=== PATIENT | male | born 1940 | race Caucasian/White ===

== ENCOUNTER 2018-01-23 07:59 | Inpatient (IN) | payer MEDICARE, BC ==
[2018-01-23] MEDS ORDERED: RX INFO: IV CONTRAST WAS GIVEN 1 EACH MISC MISCELLANE PRN (08:42)
[2018-01-23] MEDS ORDERED: MORPHINE SULFATE/PF 10MG/10ML VL IVP STA (08:42)
[2018-01-23] MEDS ORDERED: SODIUM CHLORIDE 0.9% 1,000 ML IV STA (08:42)
--- NOTE | 2018-01-23 08:45 | ED ---
General Adult HPI - General Source: patient, RN notes reviewed Mode of arrival: ambulatory Limitations: no limitations <Kwasi Meyer - Last Filed: 01/23/18 11:40> <Omari Almonte - Last Filed: 01/23/18 11:49> - General Chief complaint: Abdominal Pain Stated complaint: ABD PAIN Time Seen by Provider: 01/23/18 08:30 - History of Present Illness Initial comments: 77-year-old male significant past medical history for leukemia, presenting today with a chief complaint of abdominal pain that started 3:30 AM. He does admit that he woke up this morning with a sharp type pain located in the left lower quadrant that radiates around to the right to the right side of the back. Patient states never had similar symptoms in the past. He does admit that he had 4 bowel movements which were normal for him and he denies any signs of blood. He denies any nausea or vomiting. Currently rates pain 8/10. Denies any other complaints or symptoms. Patient denies any recent fever, chills, shortness of breath, chest pain, numbness or tingling, dysuria or hematuria, constipation or diarrhea, headaches or visual changes, or any other complaints. (Kwasi Meyer) - Related Data Home Medications Medication Instructions Recorded Confirmed Propafenone [Rythmol] 225 mg PO BID 12/04/15 01/23/18 Simvastatin [Zocor] 40 mg PO HS 01/23/18 01/23/18 amLODIPine [Norvasc] 2.5 mg PO DAILY 01/23/18 01/23/18 Previous Rx's Medication Instructions Recorded Metoprolol Tartrate [Lopressor] 50 mg PO BID tab 07/24/16 Allergies Allergy/AdvReac Type Severity Reaction Status Date / Time No Known Allergies Allergy Verified 01/23/18 08:42 Review of Systems ROS Other: All systems not noted in ROS Statement are negative. <Kwasi Meyer - Last Filed: 01/23/18 11:40> ROS Other: All systems not noted in ROS Statement are negative. <Omari Almonte - Last Filed: 01/23/18 11:49> ROS Statement: Those systems with pertinent positive or pertinent negative responses have been documented in the HPI. Past Medical History Past Medical History: Atrial Fibrillation, Cancer, Hyperlipidemia, Myocardial Infarction ([place]) Additional Past Medical History / Comment(s): arrhythmia, chronic lymphocytic leukemia, inguinal hernia, hx skin cancer, Last Myocardial Infarction Date:: 1997 History of Any Multi-Drug Resistant Organisms: None Reported Past Surgical History: Hernia Repair, Orthopedic Surgery, Tonsillectomy Additional Past Surgical History / Comment(s): bilateral rotator cuffs, Past Anesthesia/Blood Transfusion Reactions: No Reported Reaction Additional Past Anesthesia/Blood Transfusion Reaction / Comment(s): clausterphobia Past Psychological History: No Psychological Hx Reported Smoking Status: Former smoker Past Alcohol Use History: None Reported Past Drug Use History: None Reported - Past Family History Mother Family Medical History: No Reported History Father Family Medical History: Congestive Heart Failure (CHF) Additional Family Medical History / Comment(s): PAD <Kwasi Meyer - Last Filed: 01/23/18 11:40> General Exam Limitations: no limitations <Kwasi Meyer - Last Filed: 01/23/18 11:40> <Omari Almonte - Last Filed: 01/23/18 11:49> - General Exam Comments Initial Comments: General: The patient is awake and alert, in no distress, and does not appear acutely ill. Eye: Pupils are equal, round and reactive to light, extra-ocular movements are intact. No nystagmus. There is normal conjunctiva bilaterally. No signs of icterus. Ears, nose, mouth and throat: There are moist mucous membranes and no oral lesions. Neck: The neck is supple, there is no tenderness or JVD. Cardiovascular: There is a regular rate and rhythm. No murmur, rub or gallop is appreciated. Respiratory: Lungs are clear to auscultation, respirations are non-labored, breath sounds are equal. No wheezes, stridor, rales, or rhonchi. Gastrointestinal: Abdomen soft on palpation. Mild tenderness in the lower quadrants. No rebound tenderness. No guarding. No CVA tenderness. Musculoskeletal: Normal ROM, no tenderness. Strength 5/5. Sensation intact. Pulses equal bilaterally 2+. Neurological: A&O x 3. CN II-XII intact, There are no obvious motor or sensory deficits. Coordination appears grossly intact. Speech is normal. Skin: Skin is warm and dry and no rashes or lesions are noted. Psychiatric: Cooperative, appropriate mood & affect, normal judgment. (Kwasi Meyer) Course <Kwasi Meyer - Last Filed: 01/23/18 11:40> <Omari Almonte - Last Filed: 01/23/18 11:49> Vital Signs 01/23/18 01/23/18 08:15 11:31 Temperature 97.9 F 97.0 F L Pulse Rate 74 Respiratory 18 Rate Blood Pressure 129/69 143/82 O2 Sat by Pulse 94 L Oximetry - Reevaluation(s) Reevaluation #1: 01/23/18 11:35 I did personally do a [id number] evaluation the patient did discuss findings with him and his also with Dr. Heart. The patient will be admitted with consultation by Dr. Hernandez 01/23/18 11:49 Patient does still have abdominal pain but minimal symptoms on palpation or percussion. (Omari Almonte) Medical Decision Making - Lab Data Result diagrams: 01/23/18 08:47 01/23/18 08:47 <Kwasi Meyer - Last Filed: 01/23/18 11:40> - Lab Data Result diagrams: 01/23/18 08:47 01/23/18 08:47 <Omari Almonte - Last Filed: 01/23/18 11:49> - Medical Decision Making Patient's labs been reviewed 18,[address] does show evidence for lymphoma. Results were discussed with attending physician Dr. Gage sutton patient at bedside discussing the case with Dr. Heart will accept admission for Dr. Reaves with consult to Dr. browning. Patient was started on antibiotics cover for infection here in emergency room. (Kwasi Meyer) - Lab Data Lab Results 01/23/18 01/23/18 01/23/18 Range/Units 08:47 08:47 08:47 WBC 18.1 H (3.8-10.6) k/uL RBC 4.51 (4.30-5.90) m/uL Hgb 13.4 (13.0-17.5) gm/dL Hct 38.0 L (39.0-53.0) % MCV 84.2 (80.0-100.0) fL MCH 29.8 (25.0-35.0) pg MCHC 35.4 (31.0-37.0) g/dL RDW 13.1 (11.5-15.5) % Plt Count 202 (150-450) k/uL Neutrophils % (Manual) 50 % Lymphocytes % (Manual) 46 % Monocytes % (Manual) 4 % Neutrophils # (Manual) 9.05 H (1.3-7.7) k/uL Lymphocytes # (Manual) 8.33 H (1.0-4.8) k/uL Monocytes # (Manual) 0.72 (0-1.0) k/uL Nucleated RBCs 0 (0-0) /100 WBC Manual Slide Review Performed RBC Morphology Normal Sodium 138 (137-145) mmol/L Potassium 4.5 (3.5-5.1) mmol/L Chloride 102 (98-107) mmol/L Carbon Dioxide 24 (22-30) mmol/L Anion Gap 12 mmol/L BUN 16 (9-20) mg/dL Creatinine 1.12 (0.66-1.25) mg/dL Est GFR (CKD-EPI)AfAm 72 (>60 ml/min/1.73 sqM) Est GFR (CKD-EPI)NonAf 62 (>60 ml/min/1.73 sqM) Glucose 123 H (74-99) mg/dL Calcium 9.3 (8.4-10.2) mg/dL Total Bilirubin 1.1 (0.2-1.3) mg/dL AST 20 (17-59) U/L ALT 21 (21-72) U/L Alkaline Phosphatase 79 (38-126) U/L Total Protein 6.3 (6.3-8.2) g/dL Albumin 4.2 (3.5-5.0) g/dL Amylase 45 (30-110) U/L Lipase 66 (23-300) U/L Urine Color Yellow Urine Appearance Clear (Clear) Urine pH 6.5 (5.0-8.0) Ur Specific [place] 1.018 (1.001-1.035) Urine Protein Trace H (Negative) Urine Glucose (UA) Negative (Negative) Urine Ketones Trace H (Negative) Urine Blood Negative (Negative) Urine Nitrite Negative (Negative) Urine Bilirubin Negative (Negative) Urine Urobilinogen <2.0 (<2.0) mg/dL Ur Leukocyte Esterase Negative (Negative) Disposition Time of Disposition: 11:11 <Kwasi Meyer - Last Filed: 01/23/18 11:40> <Omari Almonte - Last Filed: 01/23/18 11:49> Clinical Impression: Lymphoma, Colitis, CLL (chronic lymphocytic leukemia) Referrals: Escobar Reaves MD [Primary Care Provider] - 1-2 days
[2018-01-23] MEDS ORDERED: MORPHINE SULFATE 4 MG/ML SYRINGE IVP STA (08:55)
[2018-01-23 09:07] LABS: HGB 13.4 gm/dL (13.0-17.5); MCH 29.8 pg (25.0-35.0); MCHC 35.4 g/dL (31.0-37.0); MCV 84.2 fL (80.0-100.0); Mean Platelet Volume 6.9; Platelet Count 202 k/uL (150-450); RBC 4.51 m/uL (4.30-5.90); RDW 13.1 % (11.5-15.5); WBC 18.1 k/uL (3.8-10.6)
[2018-01-23 09:08] LABS: Appearance,Urine Clear (Clear); Bilirubin,Urine Negative (Negative); Blood,Urine Negative (Negative); Color,Urine Yellow; Glucose,Urine (UA) Negative (Negative); Ketones,Urine Trace (Negative); Leukocyte Esterase,Urine Negative (Negative); Nitrite,Urine Negative (Negative); PH, Urine 6.5 (5.0-8.0); Protein,Urine Trace (Negative); Specific Gravity,Urine 1.018 (1.001-1.035); Urobilinogen,Urine <2.0 mg/dL (<2.0)
[2018-01-23] MEDS ORDERED: ONDANSETRON 4 MG/2 ML VIAL IVP STA ×2 (09:08→11:23)
[2018-01-23 09:20] LABS: Albumin 4.2 g/dL (3.5-5.0); Calcium 9.3 mg/dL (8.4-10.2); Potassium 4.5 mmol/L (3.5-5.1); Total Bilirubin 1.1 mg/dL (0.2-1.3); Total Protein 6.3 g/dL (6.3-8.2)
[2018-01-23 09:22] LABS: Lymphocytes # (M) 8.33 k/uL (1.0-4.8); Monocytes # (M) 0.72 k/uL (0-1.0); Neutrophils # (M) 9.05 k/uL (1.3-7.7); Neutrophils % (M) 50 %; Nucleated Red Blood Cells 0 /100 WBC (0-0); Total Cells Counted 100
[2018-01-23] MEDS ORDERED: MORPHINE SULFATE 4 MG/ML SYRINGE IV STA (10:02)
--- NOTE | 2018-01-23 10:11 | CT ---
EXAMINATION TYPE: CT abdomen pelvis w con DATE OF EXAM: 01/23/2018 REFERENCE: NONE HISTORY: abdominal pain HISTORY: Left lower quadrant pain REFERENCE: NONE CT DLP: 1309.0 mGy Automated exposure control for dose reduction was used. TECHNIQUE: Helical acquisition through the abdomen and pelvis was obtained following the oral ingesti on of without Oral Contrast and following intravenous administration of 100 mL of Omnipaque 300. The data was reformatted in axial, coronal and sagittal projections. FINDINGS: There is dependent atelectasis at the lung bases. There is no pleural or pericardial fluid. The heart is not enlarged. There is extensive coronary artery calcification. There is a partial eventration of the right hemidiaphragm. The liver, spleen and gallbladder appear n ormal. Both adrenal glands appear normal. There is massive adenopathy within the abdomen including the celiac axis the pericaval and Aortic region as well as the mesentery there is also some iliac adenopathy present bilaterally. No de finite inguinal adenopathy is seen. Largest lymph node mass is in the para-aortic region and measures 1.5 x 1.5 cm. Limited views of the pancreas are unremarkable. Both kidneys demonstrate function and appear morphologically normal. There is no evidence of hydronep hrosis. There is extensive diverticular change in the sigmoid region without radiographic evidence of diverti culitis. There are scattered diverticula throughout the remainder of the colon. There is some thicken ing of the transverse colon. The appendix is not visualized with certainty. Small bowel loops are normal. The bladder is not distended. There is no free fluid and no free air. There is degenerative disc disease and hypertrophic spondylosis within the spine. IMPRESSION: 1. FINDINGS HIGHLY SUGGESTIVE OF LYMPHOMA. 2. UNCOMPLICATED DIVERTICULOSIS OF THE LEFT SIDE OF THE COLON. 3. THICKENING OF THE TRANSVERSE COLON. PLEASE CORRELATE TO EXCLUDE COLITIS.
[2018-01-23] MEDS ORDERED: LEVOFLOXACIN 500MG-D5W PMX 500 MG in DEXTROSE/WATER 1 100ML.BAG IVPB STA (11:41)
[2018-01-23] MEDS ORDERED: metroNIDAZOLE-NS PMX 500 MG in SALINE 1 100ML.BAG IVPB STA (11:41)
[2018-01-23] MEDS ORDERED: MORPHINE SULFATE 4 MG/ML SYRINGE IV PRN ×2 (11:42→16:22)
[2018-01-23] MEDS ORDERED: ACETAMINOPHEN TAB 325 MG TAB PO PRN (11:42)
[2018-01-23] MEDS ORDERED: NALOXONE 0.4 MG/ML 1 ML VIAL IV PRN (11:42)
[2018-01-23] MEDS ORDERED: ONDANSETRON 4 MG/2 ML VIAL IVP PRN (11:42)
[2018-01-23] MEDS: HYDROcodone/APAP 5-325MG 1 EACH TAB PO PRN ×3 (12:25→21:12)
--- NOTE | 2018-01-23 13:34 | P.HPIM ---
History of Present Illness H&P Date: 01/23/18 Chief Complaint: Acute abdominal pain started on the left around the abdomen This is dictation on history and physical date of service 01/23/2018. Attending physician Dr.Anil Reaves. Dictating the admission history and physical by Dr. Sly [facility]. Chief complaint acute onset of abdominal pain week the patient up at 3:30 AM. Started on the left side of the abdomen several cold around 2 or three quarter of the abdomen. Rate of pain 06/17. Cataract and is sharp associated with mild nausea but he never vomits he received pale in the ER for the nausea. He had 4 BM in a row and associated with these pain, patient came to the emergency room seen by Dr. Almonte with the impression of mild diverticulitis and started on Levaquin and Flagyl IV piggyback. Patient had computed tomography scan of the abdomen in the emergency room found that he had enlarged lymph nodes bilaterally paraortic and iliac and we don't have the comparison. With the upper current recurrent exacerbation, or acute changes, his leukocytosis is 18,000. Past medical history history of chronic lymphocytic leukemia last treatment received 2 years ago by hematology oncology, actually he was seen recently by Dr. Hernandez last week. He had history of hypertension and history of arrhythmias that has been treated by Dr. 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 Family history he has 2 sons He lives with his . Habits: No smoke and no drink. Smoking history 15 years pack per day and mostly Segar. Bowel movement: Stated 4 of them suddenly but within normal shape and color and wasn't loose. Lost night intake hamburger at 5 PM supper time with differential Ame[employer] and couple of cookies for dessert. Food was made at home. Review of system: Constitution no fever or chills or falling attacks or numbness or tingling or dysuria or hematuria or constipation diarrhea headache or visual changes or any other symptoms. Neuropsychiatry negative. Cardiovascular no palpitation no chest pain. Respiratory no shortness of breath and no cough or expectoration. GI he had some nausea and epigastric discomfort and he had a 4 bowel movement. And had the pain waking him up at 3:30 AM started from the left lower quadrant circled around the abdomen to the back to come back three quarter of the cervical. Was sharp, and never have the pain leg that before. Musculoskeletal: He is ambulatory, did not feel falling down or weakness in association of the pain line. Hematologically he was treated for the chronic lymphocytic leukemia [address] Hernandez and he was stable with no problem and seen recently by Dr. Hernandez. The rest of the 14 bullet noncontributory. Surgical history hernia repair orthopedic surgery tonsillectomy cataract bilaterally removed bilateral rotator cuff disease atrial fibrillation myocardial infarction and arrhythmias hyper lipidemia. And no CVA. Admitted to the family history: His father had congestive heart failure and peripheral arterial disease. Physical exam: [id number]. Patient conscious alert oriented 3 very pleasant no acute respiratory distress. Vital sign indicating blood pressure 129/69 followed by 143/82 pulse ox 94% his pulse rate 74 temperature 97.9 297 and afebrile and respiratory rate 18. Generally patient awake alert no acute respiratory distress no distress from the pain. HEENT the head was normocephalic and atraumatic he had a history of keratosis was treated with the Dr. Malik re: dermatology. His eye pupil equal reactive he had cataract removal with implant extraocular muscle movement is intact conjunctiva was pink sclera was nonicteric and no evidence of icterus here was intact and neck was supple no JVD no thyromegaly no lymphadenopathy trachea midline. The axilla has right and left lymph node palpated however the inguinal has no lymph nodes could be palpated in the inguinal area. Chest was clear to auscultation percussion no wheezes no rhonchi's no stridor nonlabored. With increased anteroposterior diameter and remote history of smoking in the past. Cardiovascular 1 he has regular sinus rhythm and no appreciated murmur or gallop. Musculoskeletal he had no tenderness and able to move upper and lower extremities and range of motion is normal and intact sensation and reflexes. Neurologically he is conscious alert oriented 3 no lateralizing sign and creatinine there was stable the skin warm and dry with no apparent lesion in the psychiatry he is cooperative with normal mood and affect affect and normal judgment. On the laboratories he is today on the date of service 01/23/2019 he had the leukocytosis was white count 13.1 his hemoglobin 13.4 and the hematocrit is 38 platelet count 202. His electrolyte indicating the sodium 138 potassium 4.5 and the Coumadin chloride 102 carbon dioxide 24 that BUN is 16 and creatinine 1.12. Calcium is 9.3 his estimated glomerular filtration rate for non- 62 and AST 20 LT 21 alk phos 79 total protein 6.3 and albumin 4.20 serum amylase is 45 and serum lipase 66. His urine analysis was negative with the pH 6.5 clear urine and negative blood negative nitrite And negative leukocyte . Assessment: Acute abdominal pain unclear etiology. #2 chronic lymphocytic leukemia questionable acute exacerbation or transformation. #3 lymphadenopathy with the exemplary lymph node bilateral has been palpated, computed tomography scan indicated also lymph node intra-abdominal and paraortic. #4 underlying mild case of diverticulitis considered versus colitis patient treated with Levaquin and Flagyl. #5 history of cardiac arrhythmia currently regular sinus #6 history of hypertension currently controlled and the patient normotensive. Plan: #1 Dr. Reaves will follow the patient tomorrow the attending. #2 Dr. Hernandez has been consulted to to see the patient and evaluate. #3 lab and a.m. #4 monitor the patient's symptoms. #5 farther treatment depend on the patient condition. Past Medical History Past Medical History: Atrial Fibrillation, Cancer, Hyperlipidemia, Myocardial Infarction ([place]) Additional Past Medical History / Comment(s): arrhythmia, chronic lymphocytic leukemia, inguinal hernia, hx skin cancer, Last Myocardial Infarction Date:: 1997 History of Any Multi-Drug Resistant Organisms: None Reported Past Surgical History: Hernia Repair, Orthopedic Surgery, Tonsillectomy Additional Past Surgical History / Comment(s): bilateral rotator cuffs, Past Anesthesia/Blood Transfusion Reactions: No Reported Reaction Additional Past Anesthesia/Blood Transfusion Reaction / Comment(s): clausterphobia Past Psychological History: No Psychological Hx Reported Smoking Status: Former smoker Past Alcohol Use History: None Reported Past Drug Use History: None Reported - Past Family History Mother Family Medical History: No Reported History Father Family Medical History: Congestive Heart Failure (CHF) Additional Family Medical History / Comment(s): PAD Medications and Allergies Home Medications Medication Instructions Recorded Confirmed Type Propafenone [Rythmol] 225 mg PO BID 12/04/15 01/23/18 History Metoprolol Tartrate [Lopressor] 50 mg PO BID tab 07/24/16 01/23/18 Rx Simvastatin [Zocor] 40 mg PO HS 01/23/18 01/23/18 History amLODIPine [Norvasc] 2.5 mg PO DAILY 01/23/18 01/23/18 History Allergies Allergy/AdvReac Type Severity Reaction Status Date / Time No Known Allergies Allergy Verified 01/23/18 08:42 Physical Exam Vitals: Vital Signs Temp Pulse Resp BP Pulse Ox 01/23/18 12:20 97.0 F L 92 17 127/68 98 01/23/18 11:31 97.0 F L 143/82 01/23/18 08:15 97.9 F 74 18 129/69 94 L Intake and Output 01/22/18 01/23/18 01/23/18 22:59 06:59 14:59 Other: Weight 86.183 kg Results CBC & Chem 7: 01/23/18 08:47 01/23/18 08:47 Labs: Abnormal Lab Results - Last 24 Hours (Table) 01/23/18 01/23/18 01/23/18 Range/Units 08:47 08:47 08:47 WBC 18.1 H (3.8-10.6) k/uL Hct 38.0 L (39.0-53.0) % Neutrophils # (Manual) 9.05 H (1.3-7.7) k/uL Lymphocytes # (Manual) 8.33 H (1.0-4.8) k/uL Glucose 123 H (74-99) mg/dL Urine Protein Trace H (Negative) Urine Ketones Trace H (Negative)
[2018-01-23 13:40] VITALS: BMI 28.0
[2018-01-23 15:02] LABS: Uric Acid 6.3 mg/dL (3.5-8.5)
[2018-01-23] MEDS: SODIUM CHLORIDE 0.9% 1,000 ML IV SCH (15:54)
[2018-01-23] MEDS: MORPHINE SULFATE/PF 10MG/10ML VL IV PRN ×2 (18:14→21:06)
[2018-01-23] MEDS: metroNIDAZOLE-NS PMX 500 MG in SALINE 1 100ML.BAG IVPB SCH (21:06)
[2018-01-23] MEDS: METOPROLOL TARTRATE 50 MG TAB PO SCH (21:12)
[2018-01-23] MEDS: ATORVASTATIN 20 MG TAB PO SCH (21:12)
[2018-01-23] MEDS: ONDANSETRON 4 MG/2 ML VIAL IVP PRN (23:12)
[2018-01-24] MEDS: MORPHINE SULFATE/PF 10MG/10ML VL IVP PRN ×3 (01:07→10:13)
[2018-01-24] MEDS: METOCLOPRAMIDE 5 MG/ML 2 ML VIAL IVP PRN ×2 (01:07→17:46)
[2018-01-24] MEDS: metroNIDAZOLE-NS PMX 500 MG in SALINE 1 100ML.BAG IVPB SCH (06:24)
[2018-01-24] MEDS: SODIUM CHLORIDE 0.9% 1,000 ML IV SCH ×2 (06:26→20:07)
[2018-01-24 07:47] LABS: Albumin 4.1 g/dL (3.5-5.0); Calcium 9.2 mg/dL (8.4-10.2); Potassium 4.5 mmol/L (3.5-5.1); Total Bilirubin 0.9 mg/dL (0.2-1.3); Total Protein 6.2 g/dL (6.3-8.2)
[2018-01-24 07:54] LABS: HCT 35.9 % (39.0-53.0); HGB 12.3 gm/dL (13.0-17.5); MCH 29.3 pg (25.0-35.0); MCHC 34.2 g/dL (31.0-37.0); MCV 85.6 fL (80.0-100.0); Mean Platelet Volume 7.1; Platelet Count 224 k/uL (150-450); RDW 13.2 % (11.5-15.5)
[2018-01-24 08:14] LABS: WBC 31.8 k/uL (3.8-10.6)
[2018-01-24] MEDS: METOPROLOL TARTRATE 50 MG TAB PO SCH ×3 (08:40→20:06)
[2018-01-24] MEDS: amLODIPine 2.5 MG TAB PO SCH ×2 (08:41→10:13)
[2018-01-24] MEDS: ONDANSETRON 4 MG/2 ML VIAL IVP PRN ×2 (08:43→16:39)
[2018-01-24 08:52] LABS: Lymphocytes # (M) 22.58 k/uL (1.0-4.8); Monocytes # (M) 2.23 k/uL (0-1.0); Neutrophils % (M) 22 %; Nucleated Red Blood Cells 0 /100 WBC (0-0); Poikilocytosis (M) Present; Total Cells Counted 100
[2018-01-24] MEDS ORDERED: LEVOFLOXACIN 500MG-D5W PMX 500 MG in DEXTROSE/WATER 1 100ML.BAG IVPB SCH (12:00)
[2018-01-24] MEDS: KETOROLAC 30 MG/ML 1 ML VIAL IVP SCH ×2 (12:59→18:08)
[2018-01-24] MEDS ORDERED: MORPHINE ORAL SOLN 10 MG/5 ML CUP PO PRN (13:32)
[2018-01-24] MEDS: MORPHINE ORAL SOLN 10 MG/5 ML CUP PO PRN ×2 (16:37→19:24)
--- NOTE | 2018-01-24 17:10 | P.GSCN ---
History of Present Illness Consult date: 01/24/18 History of present illness: 77-year-old male presented to the emergency department with abdominal pain. He has a known history of CLL and has been treated with chemotherapy in the past. The patient states that he was treated through peripheral venous chemotherapy. He states that his abdominal pain is pressure-like and throughout his entire abdomen. He states that morphine mildly improved since pain. On workup in the emergency department the patient did have a CT of his abdomen and pelvis that did show thickening of the transverse colon and lymphadenopathy in the aortic region. He states that he has been having normal bowel function with no issues. He complains of some mild nausea but denies any emesis episodes. His last treatment of chemotherapy was 2 years ago. He denies any fevers, chills, chest pain or shortness of breath at this time. Surgeries consult and secondary to increased abdominal pain. Review of Systems All systems: negative Past Medical History Past Medical History: Atrial Fibrillation, Cancer, Hyperlipidemia, Myocardial Infarction ([place]) Additional Past Medical History / Comment(s): arrhythmia, chronic lymphocytic leukemia, inguinal hernia, hx skin cancer, Last Myocardial Infarction Date:: 1997 History of Any Multi-Drug Resistant Organisms: None Reported Past Surgical History: Hernia Repair, Orthopedic Surgery, Tonsillectomy Additional Past Surgical History / Comment(s): bilateral rotator cuffs, Past Anesthesia/Blood Transfusion Reactions: No Reported Reaction Additional Past Anesthesia/Blood Transfusion Reaction / Comm: clausterphobia Past Psychological History: No Psychological Hx Reported Smoking Status: Former smoker Past Alcohol Use History: None Reported Past Drug Use History: None Reported - Past Family History Mother Family Medical History: No Reported History Father Family Medical History: Congestive Heart Failure (CHF) Additional Family Medical History / Comment(s): PAD Medications and Allergies Home Medications Medication Instructions Recorded Confirmed Type Propafenone [Rythmol] 225 mg PO BID 12/04/15 01/23/18 History Metoprolol Tartrate [Lopressor] 50 mg PO BID tab 07/24/16 01/23/18 Rx Simvastatin [Zocor] 40 mg PO HS 01/23/18 01/23/18 History amLODIPine [Norvasc] 2.5 mg PO DAILY 01/23/18 01/23/18 History Allergies Allergy/AdvReac Type Severity Reaction Status Date / Time No Known Allergies Allergy Verified 01/23/18 08:42 Surgical - Exam Osteopathic Statement: *. No significant issues noted on an osteopathic structural exam other than those noted in the History and Physical/Consult. Vital Signs Temp Pulse Resp BP Pulse Ox 97.9 F 74 18 129/69 94 L 01/23/18 08:15 01/23/18 08:15 01/23/18 08:15 01/23/18 08:15 01/23/18 08:15 - General no distress - Eyes PERRL, normal ocular movement - ENT no hearing loss - Neck trachea midline - Respiratory normal respiratory effort - Abdomen Soft, mildly generally tender to palpation, nondistended, no rebound, no guarding - Neurologic normal sensation - Psychiatric oriented to time, oriented to person, oriented to place, speech is normal Results - Labs 01/24/18 06:42 01/24/18 06:42 Abnormal Lab Results - Last 24 Hours (Table) 01/24/18 01/24/18 Range/Units 06:42 06:42 WBC 31.8 H* (3.8-10.6) k/uL RBC 4.20 L (4.30-5.90) m/uL Hgb 12.3 L (13.0-17.5) gm/dL Hct 35.9 L (39.0-53.0) % Lymphocytes # (Manual) 22.58 H (1.0-4.8) k/uL Monocytes # (Manual) 2.23 H (0-1.0) k/uL BUN 25 H (9-20) mg/dL Glucose 148 H (74-99) mg/dL ALT 18 L (21-72) U/L Total Protein 6.2 L (6.3-8.2) g/dL Microbiology - Last 24 Hours (Table) 01/23/18 09:00 Blood Culture - Preliminary Blood No Growth after 24 hours Diabetes panel 01/24/18 Range/Units 06:42 Sodium 139 (137-145) mmol/L Potassium 4.5 (3.5-5.1) mmol/L Chloride 99 (98-107) mmol/L Carbon Dioxide 26 (22-30) mmol/L BUN 25 H (9-20) mg/dL Creatinine 1.08 (0.66-1.25) mg/dL Glucose 148 H (74-99) mg/dL Calcium 9.2 (8.4-10.2) mg/dL AST 24 (17-59) U/L ALT 18 L (21-72) U/L Alkaline Phosphatase 68 (38-126) U/L Total Protein 6.2 L (6.3-8.2) g/dL Albumin 4.1 (3.5-5.0) g/dL Calcium panel 01/24/18 Range/Units 06:42 Calcium 9.2 (8.4-10.2) mg/dL Albumin 4.1 (3.5-5.0) g/dL Pituitary panel 01/24/18 Range/Units 06:42 Sodium 139 (137-145) mmol/L Potassium 4.5 (3.5-5.1) mmol/L Chloride 99 (98-107) mmol/L Carbon Dioxide 26 (22-30) mmol/L BUN 25 H (9-20) mg/dL Creatinine 1.08 (0.66-1.25) mg/dL Glucose 148 H (74-99) mg/dL Calcium 9.2 (8.4-10.2) mg/dL Adrenal panel 01/24/18 Range/Units 06:42 Sodium 139 (137-145) mmol/L Potassium 4.5 (3.5-5.1) mmol/L Chloride 99 (98-107) mmol/L Carbon Dioxide 26 (22-30) mmol/L BUN 25 H (9-20) mg/dL Creatinine 1.08 (0.66-1.25) mg/dL Glucose 148 H (74-99) mg/dL Calcium 9.2 (8.4-10.2) mg/dL Total Bilirubin 0.9 (0.2-1.3) mg/dL AST 24 (17-59) U/L ALT 18 L (21-72) U/L Alkaline Phosphatase 68 (38-126) U/L Total Protein 6.2 L (6.3-8.2) g/dL Albumin 4.1 (3.5-5.0) g/dL - Imaging CT scan - abdomen: report reviewed CT scan - pelvis: report reviewed Assessment and Plan (1) Chronic lymphocytic leukemia Narrative/Plan: 77-year-old male with abdominal pain and history of CLL - Abdominal pain most likely secondary to generalized adenopathy in the aortic region - Continue diet as tolerated, no plan for acute surgical intervention - No obstructive process noted on the CT of the abdomen and pelvis - Will await oncology recommendations - Further recommendations to follow, I will continue to follow the patient Thank you for this consultation, I look forward in providing in this patient's care. Current Visit: Yes Status: Acute Priority: High Code(s): C91.10 - CHRONIC LYMPHOCYTIC LEUK OF B-CELL TYPE NOT ACHIEVE REMIS SNOMED Code(s): 33793048
[2018-01-24] MEDS ORDERED: LORazepam 2 MG/ML INJ IV PRN (19:38)
[2018-01-24] MEDS: HYDROmorphone 2 MG TAB PO PRN (20:03)
[2018-01-24] MEDS: PROPAFENONE 225 MG TAB PO SCH (20:06)
[2018-01-24] MEDS: ATORVASTATIN 20 MG TAB PO SCH (20:06)
--- NOTE | 2018-01-24 23:41 | P.CONS ---
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 He was originally diagnosed with stage "0" disease in 2003 and followed on observation until 2008. He required 4 treatments of Bendamustine and Rituxan in for an incresing WBC count and lowering platelet count. He has required high dose steroid treatments through the years for episodes of thrombocytopenia (2010, 12/2011, 07/2012). In 2013, after episode of cough and sinusitis he developed a persistent leukopenia. A bone marrow biopsy was done, confirming the expected findings of CLL. Rituxan weekly x4 treatments was administered. In 2015, he presented with positive B symptoms and new axillary adenopathy. He received six treatements of Bendeka and Rituxan at his time (completing in 12/2016). He was recently seen in the office last week,and at that time denied any B symptoms or complaints. He presented to [facility] ED last night after experiencing sharp abdominal pain, with associated nausea and vomitting. Pain was sudden onset and woke him up from sleep. His WBC is trending up, although no fevers. He states he is moving bowels without difficulty. Review of Systems A 14 point review assessed and completed and all negative except HPI. Constitutional: Reports as per HPI, Reports fatigue Gastrointestinal: Reports abdominal pain Past Medical History Past Medical History: Atrial Fibrillation, Cancer, Hyperlipidemia, Myocardial Infarction ([place]) Additional Past Medical History / Comment(s): arrhythmia, chronic lymphocytic leukemia, inguinal hernia, hx skin cancer, Last Myocardial Infarction Date:: 1997 History of Any Multi-Drug Resistant Organisms: None Reported Past Surgical History: Hernia Repair, Orthopedic Surgery, Tonsillectomy Additional Past Surgical History / Comment(s): bilateral rotator cuffs, Past Anesthesia/Blood Transfusion Reactions: No Reported Reaction Additional Past Anesthesia/Blood Transfusion Reaction / Comm: clausterphobia Past Psychological History: No Psychological Hx Reported Smoking Status: Former smoker Past Alcohol Use History: None Reported Past Drug Use History: None Reported - Past Family History Mother Family Medical History: No Reported History Father Family Medical History: Congestive Heart Failure (CHF) Additional Family Medical History / Comment(s): PAD Medications and Allergies Home Medications Medication Instructions Recorded Confirmed Type RX: Propafenone [Rythmol] 225 mg PO BID 12/04/15 01/23/18 History RX: Metoprolol Tartrate [Lopressor] 50 mg PO BID tab 07/24/16 01/23/18 Rx Simvastatin [Zocor] 40 mg PO HS 01/23/18 01/23/18 History amLODIPine [Norvasc] 2.5 mg PO DAILY 01/23/18 01/23/18 History Allergies Allergy/AdvReac Type Severity Reaction Status Date / Time No Known Allergies Allergy Verified 01/23/18 08:42 Physical Exam Vitals: Vital Signs Temp Pulse Pulse Resp BP BP Pulse Ox 01/24/18 08:00 90 20 01/24/18 07:00 97.3 F L 90 20 106/70 92 L 01/24/18 00:00 16 01/23/18 23:00 98.1 F 95 16 127/79 94 L 01/23/18 15:44 17 01/23/18 15:00 97.8 F 83 16 124/78 93 L 01/23/18 12:20 97.0 F L 92 17 127/68 98 Intake and Output 01/23/18 01/24/18 01/24/18 22:59 06:59 14:59 Intake Total 590 1220 Output Total 400 Balance 190 1220 Intake: Intake, IV Titration 820 Amount Sodium Chloride 0.9% 1, 720 000 ml @ 60 mls/hr IV . [id number] [facility] Rx#:[id number] metroNIDAZOLE-NS PMX 500 100 mg In Saline 1 100ml.bag @ 100 mls/hr IVPB ONCE STA Rx#:[id number] Oral 590 400 Output: Emesis 400 Other: Voiding Method Toilet Toilet Toilet # Voids 2 3 - Constitutional General appearance: average body habitus, cooperative, no acute distress - EENT Eyes: poor dentition, normal appearance ENT: normal oropharynx - Neck Supple, Trachea Midline, No adenopathy - Respiratory Respiratory: bilateral: CTA (No increased effort), diminished (Bases) - Cardiovascular Rhythm: regular Heart sounds: normal: S1, S2 - Gastrointestinal General gastrointestinal: distended, soft, tenderness - Integumentary Integumentary: normal - Neurologic No focal defects Neurologic: CNII-XII intact - Psychiatric Psychiatric: A&O x's 3, appropriate affect, intact judgment & insight Results CBC & Chem 7: 01/24/18 06:42 01/24/18 06:42 Labs: Abnormal Lab Results - Last 24 Hours (Table) 01/24/18 01/24/18 Range/Units 06:42 06:42 WBC 31.8 H* (3.8-10.6) k/uL RBC 4.20 L (4.30-5.90) m/uL Hgb 12.3 L (13.0-17.5) gm/dL Hct 35.9 L (39.0-53.0) % Lymphocytes # (Manual) 22.58 H (1.0-4.8) k/uL Monocytes # (Manual) 2.23 H (0-1.0) k/uL BUN 25 H (9-20) mg/dL Glucose 148 H (74-99) mg/dL ALT 18 L (21-72) U/L Total Protein 6.2 L (6.3-8.2) g/dL CT scan - abdomen: report reviewed CT scan - pelvis: report reviewed Assessment and Plan (1) Chronic lymphocytic leukemia Narrative/Plan: 1. CT scan reviewed. Adenopathy present in abdomen within the celiac plexus and pericaval region. Evidence of possible colitis as well. Increasing WBC with adenopathy is indicative of progressive disease. However it is unclear if this acute presentation is due to progression. Usually in case of progressive disease more slower ,progressive pain, WBC count would be expected. - I will ask Radiology to review scan for any evidence of veno-vascular compromise/splenic pathology - agree with antibiotic and hydration. Follow response to same - Consider GI w/u to r/o acute pathology such as ulcer /colitis Current Visit: Yes Status: Acute Priority: High Code(s): C91.10 - CHRONIC LYMPHOCYTIC LEUK OF B-CELL TYPE NOT ACHIEVE REMIS SNOMED Code(s): 19819509
[2018-01-25] MEDS: KETOROLAC 30 MG/ML 1 ML VIAL IVP SCH ×4 (00:26→17:57)
--- NOTE | 2018-01-25 00:40 | PN ---
PROGRESS NOTE ATTENDING PHYSICIAN: Dr. Mane Reaves. CHIEF COMPLAINT: Abdominal pain. HISTORY OF PRESENT ILLNESS: This 77-year-old gentleman was admitted to the hospital with complaints of abdominal pain which started about 3 o'clock on Wednesday night. The patient's pain was quite intense across the mid abdomen. The patient had no nausea or vomiting at that time. He did have 4 bowel movements at home with no blood or mucus in there. The patient presents to the hospital with the above findings. The patient was afebrile. He did not complain of any other symptoms. He does have history of chronic lymphocytic leukemia. A CT scan of the abdomen revealed a fairly large mass of knotted lymph nodes in the mesenteric and celiac axis. The patient did not show any evidence of bowel obstruction. The patient was seen by Dr. Heart and admitted to the hospital. The patient was placed on Levaquin and Flagyl; however, the patient has no evidence of any infective process. The patient does have a history of previous treatment of leukemia/lymphoma. The patient is followed by Dr. Hernandez in the outpatient. He was recently evaluated by him. Apparently the white count was at 10,000 at that time. At the time of admission had a white count of 18.1, today is 31.8, predominantly lymphocytes. Platelet counts are still normal at 224,000. REVIEW OF SYSTEMS: NEURO: Denies any headaches or dizziness. PSYCH: Apprehension. CARDIAC: No chest pain, angina, palpitations. RESPIRATORY: No shortness of breath, cough. GI: No nausea. Did have an episode of vomiting following treatment with narcotics. Complains of abdominal pain. At present seems fairly comfortable at my time of evaluation in the morning. No diarrhea. : No symptoms of dysuria, hematuria, urgency, frequency. EXTREMITIES: No pain. CONSTITUTIONAL: No fever or chills. PHYSICAL EXAMINATION: Pleasant gentleman. He is in no distress, although he does have some abdominal pain. Vital signs revealed temperature 97.3, pulse 90, respirations 20, blood pressure 106/70, pulse ox of 92% room air. HEENT: Normocephalic. Neck is no JVD. Oral cavity moist. There are no supraclavicular lymph nodes. No axillary nodes. No cervical nodes. No inguinal nodes. CHEST: Clear to auscultation and percussion. CARDIAC: Normal S1, S2 with no gallops. Regular rhythm. ABDOMEN: Protuberant. There is a diffuse mass in the right upper quadrant of the abdomen. Liver is not enlarged. Bowel sounds are active. No inguinal hernia or nodes. Extremities reveal no edema. NEUROLOGIC: Awake, alert, oriented with well-coordinated movements. LABORATORY ASSESSMENT: As mentioned above. White count 31.8, hemoglobin 12.3, and the predominant lymphocytes are 22,580. Electrolytes are normal. BUN 25, creatinine 1.08, glucose was 148, ALT 18. ASSESSMENT: 1. Acute abdominal pains. 2. Massive lymphadenopathy, intraabdominal. 3. History of chronic lymphocytic leukemia/lymphoma. 4. Paroxysmal atrial fibrillation. 5. Paroxysmal atrial fibrillation. 6. Hypertension. PLAN: The patient at present is stable. Complains of pain. I did review the x-rays and the CT scan with the radiologist. He certainly has a fairly large lymph nodes. No evidence of bowel obstruction. Would defer further management of this leukemia/lymphoma by Dr. Hernandez. The patient's condition is discussed with the patient and his prognosis remains guarded. I did call the patient up after reviewing the CT scan with the radiologist and discussed with him the findings. The nurses called me today this evening and the patient's pain was not well controlled. I placed him on Toradol this morning due to shortage of IV narcotics. We will switch over to Dilaudid. The patient's condition remains guarded. Prognosis guarded. MMODL / IJN: [id number] /
[2018-01-25] MEDS: HYDROmorphone 2 MG TAB PO PRN ×3 (04:37→18:35)
[2018-01-25] MEDS: SODIUM CHLORIDE 0.9% 1,000 ML IV SCH ×3 (04:38→09:25)
[2018-01-25] MEDS: METOCLOPRAMIDE 5 MG/ML 2 ML VIAL IVP PRN (04:41)
[2018-01-25] MEDS: amLODIPine 2.5 MG TAB PO SCH (08:19)
[2018-01-25] MEDS: PROPAFENONE 225 MG TAB PO SCH ×2 (08:20→22:15)
[2018-01-25] MEDS: METOPROLOL TARTRATE 50 MG TAB PO SCH ×2 (08:20→22:15)
[2018-01-25] MEDS: ONDANSETRON 4 MG/2 ML VIAL IVP PRN (08:27)
[2018-01-25 08:57] LABS: HCT 28.8 % (39.0-53.0); MCV 87.9 fL (80.0-100.0); Mean Platelet Volume 7.6; Platelet Count 162 k/uL (150-450); RBC 3.27 m/uL (4.30-5.90); RDW 13.8 % (11.5-15.5)
[2018-01-25 09:01] LABS: HGB 9.5 gm/dL (13.0-17.5); WBC 44.5 k/uL (3.8-10.6)
[2018-01-25 11:09] LABS: Lymphocytes # (M) 32.04 k/uL (1.0-4.8); Monocytes # (M) 1.34 k/uL (0-1.0); Neutrophils # (M) 11.57 k/uL (1.3-7.7); Neutrophils % (M) 26 %; Nucleated Red Blood Cells 0 /100 WBC (0-0); Total Cells Counted 200
[2018-01-25] MEDS: HEPARIN SODIUM,PORCINE 5,000 UNIT/ML 1 ML VIAL SQ SCH ×2 (11:44→22:15)
--- NOTE | 2018-01-25 13:24 | CDI ---
Last Revision, October 2017 Date: 01/25/2018 From: Larissa BRYANT,RN Admit Date: 01/23/2018 11:49:00 AM Patient Name: Alexy Lee Visit Number: [id number] Discharge Date: ATTENTION: The Clinical Documentation Specialists (CDI) and [facility] Coding Staff appreciate your assistance in clarifying documentation. Please respond to the clarification below the line at the bottom and electronically sign. The CDI & [facility] Coding staff will review the response and follow-up if needed. Please note: Queries are made part of the Legal Health Record. If you have any questions, please contact the author of this message via ITS. Dr. Escobar Reaves Diagnosis and location in medical record includes Diverticulitis. ED notes diverticulitis, HP notes underlying mild case of diverticulitis versus colitis, treated with Levaquin and Flaygl.PN 01/24:"placed on Levaquin and Flagyl however the patient has no evidence of any infective process. Patient history/risk factors: CLL w presentation of abd pain. Reported 4 BM prior to presentation. CT showing large mass of knotted lymph nodes Clinical Indicators: WBCS elevated to 44.5 with possible progression CLL, Levaquin DC 01/24 and Flagyl dcd 01/23 Lab findings: WBCs 18.1 to 44.5 with Lymph from 8.33 to 32.04 Radiology findings:There is massive adenopathy within the abdomen including the celiac axis the pericaval and Aortic region as well as the mesentery there is also some iliac adenopathy present bilaterally. No definite inguinal adenopathy is seen. Largest lymph node mass is in the para-aortic region and measures 1.5 x 1.5 cm. There is extensive diverticular change in the sigmoid region without radiographic evidence of diverticulitis. There are scattered diverticula throughout the remainder of the colon. There is some thickening of the transverse colon. Patient history/risk factors: CLL w presentation of abd pain. Reported 4 BM prior to presentation Vital Signs: 97.8 HR 92 RR 17 BP 124/78 Treatment: Initially Levaquin and Flagyl DC's Consults: Gen surgery abd pain likely 2nd to lymphadenopathy: Oncology : concern for progression CLL or acute Increasing WBC with adenopathy is indicative of progressive disease. However it is unclear if this acute presentation is due to progression. Usually in case of progressive disease more slower,progressive pain, WBC count would be expected. In your professional opinion, can you please clarify if the diagnosis of Diverticulitis, Diverticulitis ruled out Diverticulitis treated Other, please specify Unable to determine Please continue to document in your progress notes and discharge summary in order to capture severity of illness and risk of mortality. Include clinical findings that support your diagnosis. MTDD
--- NOTE | 2018-01-25 13:57 | P.PN ---
Subjective Progress Note Date: 01/25/18 Patient seen and examined at bedside. States his abdominal pain is well- controlled with pain medication. Denies any nausea and vomiting. Denies blood in his bowel movements. Objective - Vital Signs Vital signs: Vital Signs Temp 98.2 F 01/25/18 07:00 Pulse 107 H 01/25/18 07:00 Resp 20 01/25/18 07:00 BP 97/59 01/25/18 07:00 Pulse Ox 94 L 01/25/18 07:00 Intake & Output 01/24/18 01/25/18 01/25/18 18:59 06:59 18:59 Intake Total 420 1600 Balance 420 1600 Intake: Intake, IV Titration 420 660 Amount Sodium Chloride 0.9% 1, 420 660 000 ml @ 60 mls/hr IV . [id number] [facility] Rx#:[id number] Oral 940 Other: Voiding Method Toilet Toilet Toilet # Voids 3 - Constitutional General appearance: Present: cooperative, no acute distress - EENT Eyes: Present: PERRLA - Respiratory Details: No difficulty with respiration - Gastrointestinal Gastrointestinal Comment(s): Soft, mildly generalized tenderness, nondistended, no rebound, no guarding - Psychiatric Psychiatric: Present: A&O x's 3 - Labs CBC & Chem 7: 01/25/18 08:06 01/24/18 06:42 Labs: Abnormal Lab Results - Last 24 Hours (Table) 01/25/18 Range/Units 08:06 WBC 44.5 H* (3.8-10.6) k/uL RBC 3.27 L (4.30-5.90) m/uL Hgb 9.5 L D (13.0-17.5) gm/dL Hct 28.8 L (39.0-53.0) % Neutrophils # (Manual) 11.57 H (1.3-7.7) k/uL Lymphocytes # (Manual) 32.04 H (1.0-4.8) k/uL Monocytes # (Manual) 1.34 H (0-1.0) k/uL Microbiology - Last 24 Hours (Table) 01/23/18 09:00 Blood Culture - Preliminary Blood No Growth after 24 hours Assessment and Plan (1) Chronic lymphocytic leukemia Narrative/Plan: 77-year-old male with abdominal pain and history of CLL - Discussed the case with Dr. Hernandez, there is concern of a possible transient ischemic bowel due to findings of thickened transverse colon and stability of lymphadenopathy compressing arterial blood flow. There is also a possibility of ulcerative disease. The plan is for endoscopy for these reasons. We will plan on performing a bowel prep on 01/26/2018 with anticipated colonoscopy and upper endoscopy on 01/27/2018. - Continue diet as tolerated - No obstructive process noted on the CT of the abdomen and pelvis - Further recommendations to follow, I will continue to follow the patient Current Visit: Yes Status: Acute Priority: High Code(s): C91.10 - CHRONIC LYMPHOCYTIC LEUK OF B-CELL TYPE NOT ACHIEVE REMIS SNOMED Code(s): 20941332
--- NOTE | 2018-01-25 15:59 | P.PN ---
Subjective Progress Note Date: 01/25/18 Principal diagnosis: abd pain, N,V Pt seen today in follow up, abd pain is better, he did tolerate liquid diet without nausea or vomiting, no BM yesterday or today, no other physical c/o, he is ambulatory. Objective - Vital Signs Vital signs: Vital Signs Temp 98.2 F 01/25/18 07:00 Pulse 107 H 01/25/18 07:00 Resp 20 01/25/18 07:00 BP 97/59 01/25/18 07:00 Pulse Ox 94 L 01/25/18 07:00 Intake & Output 01/24/18 01/25/18 01/25/18 18:59 06:59 18:59 Intake Total 420 1600 Balance 420 1600 Intake: Intake, IV Titration 420 660 Amount Sodium Chloride 0.9% 1, 420 660 000 ml @ 50 mls/hr IV . Q20H [facility] Rx#:[id number] Oral 940 Other: Voiding Method Toilet Toilet Toilet # Voids 3 2 - Constitutional General appearance: Present: average body habitus, cooperative, no acute distress - EENT Eyes: Present: anicteric sclerae - Respiratory Respiratory: bilateral: CTA - Cardiovascular Heart sounds: normal: S1, S2 - Peripheral edema leg Peripheral Edema: bilateral: None - Gastrointestinal General gastrointestinal: Present: soft, tenderness - Neurologic Neurologic: Present: CNII-XII intact - Musculoskeletal Musculoskeletal: Present: strength equal bilaterally - Psychiatric Psychiatric: Present: A&O x's 3, appropriate affect, intact judgment & insight - Labs CBC & Chem 7: 01/25/18 08:06 01/24/18 06:42 Labs: Abnormal Lab Results - Last 24 Hours (Table) 01/25/18 Range/Units 08:06 WBC 44.5 H* (3.8-10.6) k/uL RBC 3.27 L (4.30-5.90) m/uL Hgb 9.5 L D (13.0-17.5) gm/dL Hct 28.8 L (39.0-53.0) % Neutrophils # (Manual) 11.57 H (1.3-7.7) k/uL Lymphocytes # (Manual) 32.04 H (1.0-4.8) k/uL Monocytes # (Manual) 1.34 H (0-1.0) k/uL Microbiology - Last 24 Hours (Table) 01/23/18 09:00 Blood Culture - Preliminary Blood No Growth after 48 hours Assessment and Plan (1) Colitis Narrative/Plan: Dr. Hernandez did discuss the case with Radiologist and there does not appear to be messenteric clots as a cause of pt symptoms. He has also discussed case with Surgery who will evaluate the patient and perform endoscopy to ensure there is not ischemic bowel or ulceration causing symptoms. If it is ultimately ruled out that pt does not have other cause for symptoms then the likely cause of his symptoms is lymphadenopathy from lymphoma and he will be started on treatment for symptomatic lymphoma. Plan of care with rationale was discussed with pt and son, Dr. Hernandez answered all questions. Current Visit: Yes Status: Acute Priority: High Code(s): K52.9 - NONINFECTIVE GASTROENTERITIS AND COLITIS, UNSPECIFIED SNOMED Code(s): 90051509 (2) Lymphoma Current Visit: Yes Status: Chronic Priority: Medium Code(s): C85.90 - NON- HODGKIN LYMPHOMA, UNSPECIFIED, UNSPECIFIED SITE SNOMED Code(s): 922093569 Plan: Doctor attests:I have performed a history and physical exam of this pt, discussed with dictator. I agree with dictated note, documented as a scribe.
--- NOTE | 2018-01-25 21:38 | PN ---
PROGRESS NOTE ATTENDING PHYSICIAN: Dr. Mane Reaves. CHIEF COMPLAINT: Re-evaluation. HISTORY OF PRESENT ILLNESS: This 77-year-old gentleman was admitted to the hospital with acute abdominal pain. The pain is much improved. The patient has significant lymphadenopathy in the mesentery. The patient has a history of chronic lymphocytic leukemia. The patient has been seen by oncology. They have recommended that the patient have upper and lower endoscopy done to rule out any other process. If that is okay, the patient might require further evaluation with biopsy versus empirical treatment for his leukemia lymphoma. The patient's condition discussed with the patient. Also discussed reviewed the case with Dr. Nelson, the surgeon, as well as Dr. Hernandez the oncologist. The patient condition also discussed with his son over the phone. His son lives in [place]. REVIEW OF SYSTEMS: NEURO: Denies any headaches or dizziness. Psych: Anxiety. Cardiac: No chest pain, angina or palpitations. Respiratory: Denies shortness of breath. Does have cough. No hemoptysis. no symptoms of dysuria, hematuria. EXTREMITIES: No pain, edema. Constitutional: No fever, chills. GI has some abdominal pain. Constitutional: No fever or chills. PHYSICAL EXAMINATION: Pleasant gentleman in no distress. pain medication. Vital signs reveals temperature 98.2, pulse 107, respirations 20, pulse ox of 92-4% room air. The blood pressure 97/59. HEENT: Normocephalic. NECK: Supple. No JVD. CHEST: Clear to auscultation. Cardiac: Normal S1, S2 with no gallops, murmurs. Abdomen is protuberant and much less tender. Bowel sounds are active. Extremities reveal trace edema. Neurological: Awake, alert, oriented with well-coordinated movements. LABORATORY ASSESSMENT: White count up to 44,500 mostly predominantly lymphocytes. Does have mild elevated neutrophils too. Hemoglobin down to 9.5 with no evidence of bleeding. Platelets down to 162. ASSESSMENT: 1. Acute abdominal pain. 2. Intraabdominal . 3. Chronic lymphocytic leukemia. 4. History of paroxysmal atrial fibrillation. 5. Hypertension. PLAN: The patient is stable. Continue present medical regimen. The patient is planned for an upper endoscopy. The patient is scheduled to undergo an upper and lower endoscopy, but could not be scheduled for tomorrow, so he is scheduled for the day after. The patient condition is remains guarded. Prognosis guarded. MMODL / IJN: [id number] /
[2018-01-25] MEDS: ATORVASTATIN 20 MG TAB PO SCH (22:15)
[2018-01-26] MEDS: SODIUM CHLORIDE 0.9% 1,000 ML IV SCH (01:37)
[2018-01-26] MEDS: KETOROLAC 30 MG/ML 1 ML VIAL IVP SCH ×2 (01:37→05:26)
[2018-01-26] MEDS: HYDROmorphone 2 MG TAB PO PRN ×4 (02:46→22:01)
[2018-01-26] MEDS: HEPARIN SODIUM,PORCINE 5,000 UNIT/ML 1 ML VIAL SQ SCH ×2 (09:47→22:01)
[2018-01-26] MEDS: METOPROLOL TARTRATE 50 MG TAB PO SCH ×2 (09:48→22:01)
[2018-01-26] MEDS: PROPAFENONE 225 MG TAB PO SCH ×2 (09:48→22:02)
[2018-01-26 10:03] LABS: HCT 23.8 % (39.0-53.0); MCH 29.4 pg (25.0-35.0); MCHC 33.3 g/dL (31.0-37.0); MCV 88.5 fL (80.0-100.0); Mean Platelet Volume 7.9; Platelet Count 113 k/uL (150-450); RBC 2.69 m/uL (4.30-5.90); RDW 13.9 % (11.5-15.5)
[2018-01-26 10:11] LABS: HGB 7.9 gm/dL (13.0-17.5); WBC 43.5 k/uL (3.8-10.6)
--- NOTE | 2018-01-26 10:16 | P.PN ---
Subjective Progress Note Date: 01/26/18 Patient seen and examined at bedside. Abdominal pain is tolerable with pain medication. Denies any nausea and vomiting. Is tolerating a full liquid diet. He continues to have nonbloody bowel function. Objective - Vital Signs Vital signs: Vital Signs Temp 97.8 F 01/26/18 07:28 Pulse 80 01/26/18 07:28 Resp 16 01/26/18 07:28 BP 94/55 01/26/18 07:28 Pulse Ox 95 01/26/18 07:28 Intake & Output 01/25/18 01/26/18 01/26/18 18:59 06:59 18:59 Other: Voiding Method Toilet Toilet # Voids 2 1 - Constitutional General appearance: Present: cooperative, no acute distress - EENT ENT: Present: hearing grossly normal - Respiratory Details: No difficulty with respiration - Gastrointestinal Gastrointestinal Comment(s): Soft, mildly generalized tenderness, nondistended, no rebound, no guarding - Musculoskeletal Musculoskeletal: Present: generalized weakness - Psychiatric Psychiatric: Present: A&O x's 3 - Labs CBC & Chem 7: 01/26/18 07:39 01/24/18 06:42 Labs: Abnormal Lab Results - Last 24 Hours (Table) 01/25/18 01/26/18 Range/Units 08:06 07:39 WBC 43.5 H* (3.8-10.6) k/uL RBC 2.69 L (4.30-5.90) m/uL Hgb 7.9 L D (13.0-17.5) gm/dL Hct 23.8 L (39.0-53.0) % Plt Count 113 L (150-450) k/uL Neutrophils # (Manual) 11.57 H (1.3-7.7) k/uL Lymphocytes # (Manual) 32.04 H (1.0-4.8) k/uL Monocytes # (Manual) 1.34 H (0-1.0) k/uL Microbiology - Last 24 Hours (Table) 01/23/18 09:00 Blood Culture - Preliminary Blood No Growth after 48 hours Assessment and Plan (1) Chronic lymphocytic leukemia Narrative/Plan: 77-year-old male with abdominal pain and history of CLL - Discussed the case with Dr. Hernandez and Dr. Reaves - Plan is for endoscopy to evaluate for ischemic colitis or any peptic ulcer disease. We'll begin prepped today at noon - Clear liquid diet during the day, nothing by mouth after midnight - No obstructive process noted on the CT of the abdomen and pelvis Current Visit: Yes Status: Acute Priority: High Code(s): C91.10 - CHRONIC LYMPHOCYTIC LEUK OF B-CELL TYPE NOT ACHIEVE REMIS SNOMED Code(s): 27608106
[2018-01-26 11:20] LABS: Lymphocytes # (M) 37.41 k/uL (1.0-4.8); Monocytes # (M) 0.87 k/uL (0-1.0); Neutrophils # (M) 5.66 k/uL (1.3-7.7); Neutrophils % (M) 13 %; Nucleated Red Blood Cells 0 /100 WBC (0-0); Total Cells Counted 200
[2018-01-26 11:21] LABS: Anisocytosis (M) Present; Poikilocytosis (M) Present
[2018-01-26] MEDS ORDERED: PEG 3350-NA SULF,BICARB,CL/KCL 4,000 ML BOTTLE PO ONE (12:30)
--- NOTE | 2018-01-26 18:39 | PN ---
PROGRESS NOTE CHIEF COMPLAINT: Re-evaluation. HISTORY OF PRESENT ILLNESS: This is a 77-year-old gentleman who was admitted to the hospital with severe abdominal pain. The patient had 4 bowel movements which were normal. He had subsequently an episode of nausea and vomiting, possibly related to morphine use or abdominal pain. The patient had an evaluation with a CT scan of the abdomen and pelvis which revealed a significant amount of adenopathy. The patient has an underlying history of chronic lymphocytic leukemia and his white count has shot up. At the time of admission, his laboratory evaluation revealed a hemoglobin of 13.4 with a white count 18.1. Now the hemoglobin is 7.9, down from 9.5 yesterday with no obvious external bleeding. The patient's white count is up to 43.5 and platelet count is down to 113,000. The patient's neutrophils are within normal range and lymphocytes are markedly elevated. The patient has been seen by Oncology as well as by General Surgery. The patient is planned for an EGD and colonoscopy. Will order the CT scan of the abdomen without contrast because I suspect the patient may have some intraabdominal bleeding, as the patient has significantly increased abdominal girth, though abdomen is fairly non- tender. REVIEW OF SYSTEMS: NEURO: Denies any headaches, dizziness. PSYCH: No anxiety. CARDIAC: No chest pain, angina, palpitation. RESPIRATORY: Denies shortness of breath, cough, hemoptysis. GI: No nausea, vomiting. Pain significantly improved and controlled with medications. No diarrhea or constipation. : No symptoms of dysuria, hematuria. EXTREMITIES: Trace edema. CONSTITUTIONAL: No fever, chills. PHYSICAL EXAMINATION: Pleasant gentleman, at present in no distress. Vital signs revealed temperature 97.8, pulse 80, respirations 16, blood pressure 94/55, pulse ox 95% on room air. HEENT: Normocephalic. NECK: No JVD. CHEST: Clear to auscultation with mild decreased air flow at the bases. CARDIAC: Normal S1, S2 with no gallop. Systolic murmur 2/6, right second intercostal space. Regular rhythm. Abdomen is more protuberant and nontender. Bowel sounds are active. Extremities reveal trace edema at the ankles. NEUROLOGIC: Awake, alert, oriented with well-coordinated movements. LABORATORY ASSESSMENT: White count of 43.5, hemoglobin 7.9, platelet count 113. ASSESSMENT: 1. Abdominal pain, improved. 2. Anemia. Rule out acute blood loss, intraabdominal. 3. Thrombocytopenia. 4. History of paroxysmal atrial fibrillation. 5. CLL. PLAN: Continue present medical regimen. Patient will continue with IV fluids. He is scheduled for EGD and colonoscopy tomorrow. CT scan of the abdomen and pelvis without contrast today. MMODL / IJN: [id number] /
[2018-01-26] MEDS: ATORVASTATIN 20 MG TAB PO SCH (22:02)
--- NOTE | 2018-01-26 23:12 | P.PN ---
Subjective Progress Note Date: 01/26/18 Pt feels better. Pain is improved. No n/v overnight. He is tolerating clear liquids well. No obvious bleeding Objective - Vital Signs Vital signs: Vital Signs Temp 98 F 01/26/18 15:00 Pulse 85 01/26/18 15:00 Resp 18 01/26/18 15:00 BP 97/57 01/26/18 15:00 Pulse Ox 93 L 01/26/18 15:00 Intake & Output 01/26/18 01/26/18 01/27/18 06:59 18:59 06:59 Other: Voiding Method Toilet Toilet # Voids 1 2 # Bowel Movements 2 - Constitutional General appearance: Present: no acute distress - EENT Eyes: Present: PERRLA ENT: Present: hearing grossly normal, normal oropharynx - Respiratory Respiratory: bilateral: CTA - Cardiovascular Rhythm: regular Heart sounds: normal: S1, S2 - Gastrointestinal General gastrointestinal: Present: distended, normal bowel sounds - Integumentary Integumentary: Present: normal - Neurologic Neurologic: Present: CNII-XII intact - Musculoskeletal Musculoskeletal: Present: strength equal bilaterally - Psychiatric Psychiatric: Present: A&O x's 3, appropriate affect - Labs CBC & Chem 7: 01/26/18 07:39 01/24/18 06:42 Labs: Abnormal Lab Results - Last 24 Hours (Table) 01/26/18 Range/Units 07:39 WBC 43.5 H* (3.8-10.6) k/uL RBC 2.69 L (4.30-5.90) m/uL Hgb 7.9 L D (13.0-17.5) gm/dL Hct 23.8 L (39.0-53.0) % Plt Count 113 L (150-450) k/uL Lymphocytes # (Manual) 37.41 H (1.0-4.8) k/uL Microbiology - Last 24 Hours (Table) 01/23/18 09:00 Blood Culture - Preliminary Blood No Growth after 72 hours Assessment and Plan (1) Abdominal pain Narrative/Plan: Improved, with less pain medication need. Tolerating liquids well. He will have endoscopic w/u tomorrow to r/o GI source such as PUD /colitis. Continue dilaudid prn Current Visit: Yes Status: Acute Code(s): R10.9 - UNSPECIFIED ABDOMINAL PAIN SNOMED Code(s): 51857868 (2) Chronic lymphocytic leukemia Narrative/Plan: WBC stable today. WBC has increased rapidly. It is not clear if this is due to progression or there is a component of acute reactive process. He will need to go back on treatment once any acute GI process can be ruled out Current Visit: Yes Status: Acute Priority: High Code(s): C91.10 - CHRONIC LYMPHOCYTIC LEUK OF B-CELL TYPE NOT ACHIEVE REMIS SNOMED Code(s): 67920760 (3) Anemia Narrative/Plan: A fairly rapid drop ahs been noted. Differentials include blood loss vs hemolysis vs inflammatory suppression vs CLL progression. Check iron studies and hemolysis markers. Transfuse for Hgb < 7 Current Visit: No Status: Acute Code(s): D64.9 - ANEMIA, UNSPECIFIED SNOMED Code(s): 592630783
[2018-01-27] MEDS: HYDROmorphone 2 MG TAB PO PRN ×2 (02:18→06:10)
[2018-01-27] MEDS: ONDANSETRON 4 MG/2 ML VIAL IVP PRN (02:22)
[2018-01-27] MEDS: SODIUM CHLORIDE 0.9% 1,000 ML IV SCH (06:11)
[2018-01-27 07:30] LABS: HCT 22.9 % (39.0-53.0); HGB 7.8 gm/dL (13.0-17.5); MCH 29.4 pg (25.0-35.0); MCV 86.6 fL (80.0-100.0); Mean Platelet Volume 7.5; Platelet Count 127 k/uL (150-450); RBC 2.64 m/uL (4.30-5.90); RDW 14.7 % (11.5-15.5)
[2018-01-27 07:35] LABS: Reticulocyte % 2.3 % (0.5-2.0)
[2018-01-27 07:47] LABS: WBC 47.2 k/uL (3.8-10.6)
[2018-01-27 07:59] LABS: Calcium 7.9 mg/dL (8.4-10.2); Potassium 4.3 mmol/L (3.5-5.1)
[2018-01-27 08:34] LABS: Lymphocytes # (M) 39.65 k/uL (1.0-4.8); Monocytes # (M) 0.94 k/uL (0-1.0); Neutrophils # (M) 6.61 k/uL (1.3-7.7); Neutrophils % (M) 14 %; Nucleated Red Blood Cells 0 /100 WBC (0-0); Total Cells Counted 200
[2018-01-27 08:36] LABS: Polychromasia Present
[2018-01-27] MEDS ORDERED: PROPOFOL 10 MG/ML 20 ML VIAL IV ONE (09:47)
[2018-01-27] MEDS ORDERED: LIDOCAINE 1% INJ 10MG/ML (20 ML MDV) ONE (09:47)
[2018-01-27] MEDS ORDERED: SODIUM CHLORIDE 0.9% 1,000 ML IV ONE (09:48)
--- NOTE | 2018-01-27 10:28 | P.OP ---
Date of Procedure: 01/27/18 Preoperative Diagnosis: Abdominal pain, history of CLL Postoperative Diagnosis: Gastritis Duodenitis Diverticulosis Procedure(s) Performed: EGD with biopsy, colonoscopy Anesthesia: MAC Surgeon: Carlos Nelson Pathology: other (Biopsies of duodenum, antrum, esophagus) Condition: stable Disposition: floor Indications for Procedure: 77-year-old male presented to the hospital with complaints of severe abdominal pain. He does have a history of CLL. There was concern of possible ischemia of his large bowel or possible peptic ulcer disease that was causing this pain. Secondary to this, upper and lower endoscopy were to be performed. The patient was explained the risks, benefits and alternatives to the procedure and provided consent prior to attending the endoscopy suite. Operative Findings: The patient was noted to have duodenitis and gastritis changes. He was noted to have diverticulosis of the descending and sigmoid colon. Description of Procedure: The patient was brought into the endoscopy suite and placed in left lateral decubitus position. Adequate sedation was achieved using conscious sedation by anesthesia. An endoscope was then placed into the oropharynx through the esophagus into the second portion of the duodenum. The first portion of the duodenum was examined and inflammatory changes were noted. Biopsies were taken. The scope was then slowly retrieved into the antrum. Some inflammatory changes were noted. Biopsies were taken. The gastric folds were noted to be normal and inflated appropriately. A retroflexed view of the GE junction revealed no significant hiatal hernia. The scope was then slowly retrieved into the esophagus. There was no obvious inflammatory changes. Biopsies were taken. This terminated the upper endoscopy portion of the procedure. A digital rectal exam was performed and mild internal hemorrhoids were palpated. An endoscope was then placed in the rectum and advanced to the cecum as identified by landmarks including the appendiceal orifice and the ileocecal valve. The prep was fair. The colonoscope was slowly withdrawn, examining for any mucosal abnormalities. The cecum, ascending, transverse, descending and sigmoid colon were visualized adequately. There was notable diverticulosis of the descending and sigmoid colon. There were no obvious inflammatory lesions or polypoid lesions throughout the colon. There was no evidence of any ischemic changes. Retroflexion was performed in the rectum and internal hemorrhoids were visible. Excess air was removed, the colonoscope was withdrawn and the procedure was terminated. The patient was then transferred to the postanesthesia recovery unit in stable condition. At this point, repeat colonoscopy as necessary.
[2018-01-27] MEDS: HEPARIN SODIUM,PORCINE 5,000 UNIT/ML 1 ML VIAL SQ SCH ×2 (10:48→20:57)
[2018-01-27] MEDS: IOPAMIDOL-300 CONTRAST 30 ML VIAL (ORAL USE) PO PRN ×2 (10:49→11:58)
[2018-01-27 11:35] LABS: Iron Saturation 27.85 (15.00-50.00)
--- NOTE | 2018-01-27 13:10 | CT ---
EXAMINATION TYPE: CT abdomen pelvis wo con DATE OF EXAM: 01/27/2018 COMPARISON: 01/23/2019 HISTORY: Ascites, anemia. History of lymphoma. CT DLP: 900.7 mGycm Automated exposure control for dose reduction was used. TECHNIQUE: Helical acquisition of images was performed from the lung bases through the pelvis. FINDINGS: LUNG BASES: Small volume pleural effusions are seen with right basilar airspace disease that is suspi cious for pneumonia given air bronchograms and decrease density in comparison to the paraspinal muscu lature. Linear left basilar subsegmental atelectasis is noted LIVER/GB: The liver is grossly unremarkable. Cholelithiasis is noted. PANCREAS: No significant abnormality is seen. SPLEEN: The spleen is upper limits of normal size measuring 13.1 cm but does not meet criteria for sp lenomegaly. ADRENALS: No significant abnormality is seen. KIDNEYS: Kidneys are unremarkable without hydronephrosis other than a right upper pole 3.5 cm cyst. FREE AIR: No free air is visualized ADENOPATHY: At the same level and measured in a similar fashion there is slight interval increase in size of the extensive abdominal pelvic adenopathy measured on series 3 image 47 measuring 16.4 x 15. 3 cm as opposed to the prior measurements of 15.3 x 15.1 cm. Extensive mesenteric abdominal and pelvi c adenopathy encompasses the region of the celiac axis, portacaval region, gastrohepatic ligament, sinha rrounds the superior mesenteric artery and descending thoracic aorta continuing through the iliac bif urcation into the pelvis and the internal iliac regions, external iliac regions, and superficial ingu inal regions. Extensive mesenteric adenopathy is also seen. REPRODUCTIVE ORGANS: Prostate gland is enlarged measuring 5.1 cm in transverse dimension. Soft tissue density within the left inguinal canal likely relates to adenopathy and was not seen on the prior ex am of 01/23/2018. URINARY BLADDER: Incompletely distended and incompletely evaluated. OSSEOUS STRUCTURES: Multilevel mild degenerative changes of the thoracolumbar spine are present. BOWEL: Numerous colonic diverticula are present without pericolonic fat stranding. OTHER: Mild body wall edema is noted bilaterally. IMPRESSION: 1. INTERVAL INCREASE IN SIZE OF THE LARGEST CONGLOMERATION OF LYMPH NODES WITHIN THE RETROPERITONEUM SURROUNDING THE DISTAL ABDOMINAL AORTA, NEW ADENOPATHY WITHIN THE LEFT INGUINAL CANAL, AND EXTENSIVE ADENOPATHY THROUGHOUT THE REMAINDER OF THE ABDOMEN AND PELVIS. 2. RIGHT LOWER LOBE AIRSPACE DISEASE SUSPICIOUS FOR PNEUMONIA GIVEN ITS DECREASED DENSITY. 3. SMALL PLEURAL EFFUSIONS AND LEFT BASILAR ATELECTASIS. 4. DIVERTICULOSIS AND CHOLELITHIASIS.
[2018-01-27] MEDS: HYDROcodone/APAP 5-325MG 1 EACH TAB PO PRN ×2 (13:29→17:05)
[2018-01-27] MEDS: PROPAFENONE 225 MG TAB PO SCH ×2 (13:30→22:38)
[2018-01-27] MEDS: METOPROLOL TARTRATE 50 MG TAB PO SCH ×2 (13:30→22:38)
--- NOTE | 2018-01-27 17:37 | PN ---
PROGRESS NOTE DATE OF SERVICE: 01/27/2018 CHIEF COMPLAINT: Re-evaluation. HISTORY OF PRESENT ILLNESS: This 77-year-old gentleman was admitted to the hospital with severe abdominal pain. The patient's pain is markedly improved. Denies any symptoms of abdominal pain. He has mild discomfort. He says pain medications are helping. He is taking only a minimal amount of Dilaudid tablet as needed. His abdomen, however, has become more protuberant and he has clinically suggestion of ascites. The patient also has dropped a significant amount of hemoglobin and platelet count. The patient's laboratory assessment showed the retic count is high and haptoglobin was elevated to 308. Bilirubin has been normal, but LDH is elevated to 1249. The patient as mentioned was feeling better. He has actually had a significant GI washout today from colonoscopy prep. The patient this morning is actually feeling fairly well, though. REVIEW OF SYSTEMS: NEURO: Denies any headaches, dizziness. PSYCH: No anxiety. Some apprehension regarding his condition. CARDIAC: Denies chest pain, angina, palpitation. RESPIRATORY: Denies shortness of breath, cough, hemoptysis. GI: Denies any nausea, vomiting. Abdominal pain controlled. No diarrhea except because of the prep. EXTREMITIES: Some edema. CONSTITUTIONAL: No fever or chills. PHYSICAL EXAMINATION: Pleasant gentleman, at present in no distress. Vital signs revealed temperature 97.9, pulse 89, respirations 20, blood pressure 111/56, pulse ox of 92% on room air. HEENT: Normocephalic. NECK: Supple. No JVD. CHEST: Clear to auscultation with bilateral adequate air flow. No rhonchi or wheezing. CARDIAC: Distant heart sounds S1, S2 with no gallops, murmurs. ABDOMEN: Soft but protuberant, tense. No tenderness. Bowel sounds present. Extremities reveal trace edema. NEUROLOGIC: Awake, alert, oriented x3 with well-coordinated movements. LABORATORY ASSESSMENT: White count was 47.2, hemoglobin 7.8, platelets 127. Neutrophils are normal. Predominant lymphocytosis. Retic count 2.3. Haptoglobin 308. Sodium 136. Electrolytes normal. BUN 42, creatinine 1.14, glucose normal, GFR 61, calcium 7.9. Iron is low at 61 and ferritin low at 27.85. LDH 1249. CT scan of the abdomen was done to make sure patient was not bleeding intraperitoneally, as the patient has significant abdominal distention. The CT scan reveals spleen is at the upper limits of normal. No free air is visualized. Kidneys are unremarkable. Patient's adenopathy load seems to have increased with extensive mesenteric adenopathy. No free fluid is reported. The patient has diverticulosis with no evidence of diverticulitis. Apparently the endoscopy report suggested colitis versus diverticulitis. Patient's colonoscopy revealed a few diverticula with no inflammation; gastritis and duodenitis noted. ASSESSMENT: 1. Chronic lymphocytic leukemia, possible lymphoma with rapid progression of lymphadenitis intraabdominally in mesenteric area. 2. Anemia, possibly hemolytic due to the disease process. 3. Thrombocytopenia due to the disease process of CLL. 4. Duodenitis, gastritis. 5. History of hypertension. 6. History of paroxysmal atrial fibrillation. CT scan suggested possible left basal pneumonitis; however, clinically no evidence of such. PLAN: Continue present medical regimen. Will have Dr. Hernandez re-evaluate the patient after these above studies, and further decisions will be made according to the availability of further labs. Patient's condition and prognosis guarded. MMODL / IJN: [id number] /
[2018-01-27] MEDS: ATORVASTATIN 20 MG TAB PO SCH (20:57)
[2018-01-28] MEDS: HYDROcodone/APAP 5-325MG 1 EACH TAB PO PRN ×3 (03:29→17:56)
[2018-01-28 07:33] LABS: HCT 22.6 % (39.0-53.0); HGB 7.1 gm/dL (13.0-17.5); MCH 27.8 pg (25.0-35.0); MCHC 31.3 g/dL (31.0-37.0); MCV 88.8 fL (80.0-100.0); Mean Platelet Volume 7.4; Platelet Count 130 k/uL (150-450); RBC 2.55 m/uL (4.30-5.90)
[2018-01-28] MEDS: PROPAFENONE 225 MG TAB PO SCH ×2 (07:52→21:05)
[2018-01-28] MEDS: HEPARIN SODIUM,PORCINE 5,000 UNIT/ML 1 ML VIAL SQ SCH ×2 (07:53→21:04)
[2018-01-28 08:11] LABS: WBC 33.4 k/uL (3.8-10.6)
[2018-01-28 09:23] LABS: Monocytes # (M) 1.67 k/uL (0-1.0); Neutrophils # (M) 0.33 k/uL (1.3-7.7); Neutrophils % (M) 1 %; Nucleated Red Blood Cells 0 /100 WBC (0-0); Poikilocytosis (M) Present; Total Cells Counted 100
[2018-01-28] MEDS: SODIUM CHLORIDE 0.9% 1,000 ML IV SCH ×2 (10:41→13:46)
[2018-01-28] MEDS: METOPROLOL TARTRATE 50 MG TAB PO SCH ×2 (10:42→21:05)
--- NOTE | 2018-01-28 16:41 | PN ---
PROGRESS NOTE DATE OF SERVICE: 01/28/2018 This is a 77-year-old white male who has a long-standing history of chronic lymphocytic leukemia. Lately he has been getting chemotherapy from Dr. Hernandez, poultry boner/oncologist. The patient was seen by me today for Dr. Reaves, who is his primary care physician, and also he is out of town this weekend. This patient was admitted this time with severe abdominal pain. The patient's pain has subsided significantly. The patient had a CT scan of the abdomen which showed significant lymphadenopathy but no other major problems. Patient had an upper and lower endoscopy that showed gastritis and duodenitis and probably some colitis or diverticulosis with probable diverticulitis. Patient is afebrile. He has been having chronic anemia. His hemoglobin is 7.1 today. Since admission, his hemoglobin has been running between 7 and 8. The patient denies any chest pain or cough or fever or chills. His vital signs are stable. Heart is in sinus rhythm. Lungs are clear to auscultation and percussion. Abdomen is soft and nontender. Examination of the lower extremities reveals no pitting edema. Neurologic examination does not reveal localizing signs. IMPRESSION: 1. Chronic lymphocytic leukemia with severe anemia and thrombocytopenia; currently has been receiving chemotherapy by Dr. Hernandez. 2. Abdominal pain, which has subsided. He also was found to have gastritis and possible colitis. The patient is clinically improving. Will continue current treatments. Prognosis is guarded. The diagnosis, prognosis and therapeutic plans were discussed in detail with the patient today. MMODL / IJN: [id number] /
--- NOTE | 2018-01-28 18:37 | P.PN ---
Subjective Progress Note Date: 01/28/18 Principal diagnosis: Progressed Lymphoma Patient is doing better, still requiring pain medications. EGD failed to show cause for acute lymphadenopathy and pain. Objective - Vital Signs Vital signs: Vital Signs Temp 97.7 F 01/28/18 15:00 Pulse 74 01/28/18 15:00 Resp 16 01/28/18 15:00 BP 126/70 01/28/18 15:00 Pulse Ox 95 01/28/18 15:00 Intake & Output 01/27/18 01/28/18 01/28/18 18:59 06:59 18:59 Intake Total 540 500 Balance 540 500 Weight 86.183 kg Intake: IV 300 Oral 240 500 Other: Voiding Method Toilet Toilet Toilet # Voids 3 2 3 # Bowel Movements 2 - Constitutional General appearance: Present: cooperative, no acute distress - EENT Eyes: Present: poor dentition ENT: Present: NA/AT, normal oropharynx - Neck Neck: Present: normal ROM - Respiratory Respiratory: bilateral: diminished (Bilateral lower lobes, no increased effort) - Cardiovascular Rhythm: regular - Gastrointestinal General gastrointestinal: Present: distended, soft, tenderness - Integumentary Integumentary: Present: pale - Neurologic Neurologic: Present: CNII-XII intact - Musculoskeletal Musculoskeletal: Present: gait normal, strength equal bilaterally - Psychiatric Psychiatric: Present: A&O x's 3, appropriate affect, intact judgment & insight - Labs CBC & Chem 7: 01/28/18 06:51 01/27/18 06:46 Labs: Abnormal Lab Results - Last 24 Hours (Table) 01/28/18 Range/Units 06:51 WBC 33.4 H* (3.8-10.6) k/uL RBC 2.55 L (4.30-5.90) m/uL Hgb 7.1 L (13.0-17.5) gm/dL Hct 22.6 L (39.0-53.0) % Plt Count 130 L (150-450) k/uL Neutrophils # (Manual) 0.33 L (1.3-7.7) k/uL Lymphocytes # (Manual) 31.40 H (1.0-4.8) k/uL Monocytes # (Manual) 1.67 H (0-1.0) k/uL Microbiology - Last 24 Hours (Table) 01/23/18 09:00 Blood Culture - Preliminary Blood No Growth after 120 hours Assessment and Plan Assessment: Assessment and Plan (1) Abdominal pain Narrative/Plan: Improved, with less pain medication need. Tolerating liquids well. EGD results reviewed, appears this is likely progressive lymphoma, will begin therapy as outpatient Current Visit: Yes Status: Acute Code(s): R10.9 - UNSPECIFIED ABDOMINAL PAIN SNOMED Code(s): 99742896 (2) Chronic lymphocytic leukemia Narrative/Plan: WBC stable today. WBC has increased rapidly. Likely due to progression or there is a component of acute reactive process. He will need to go back on treatment Current Visit: Yes Status: Acute Priority: High Code(s): C91.10 - CHRONIC LYMPHOCYTIC LEUK OF B-CELL TYPE NOT ACHIEVE REMIS SNOMED Code(s): 41664707 (3) Anemia Narrative/Plan: A fairly rapid drop ahs been noted. Differentials include blood loss vs hemolysis vs inflammatory suppression vs CLL progression. Check iron studies and hemolysis markers. Transfuse for Hgb < 7 Current Visit: No Status: Acute Code(s): D64.9 - ANEMIA, UNSPECIFIED SNOMED Code(s): 548834314 Plan: Physician Attestation: I have performed a complete history and physical of this patient and discussed with the dictators note, agree with above, documented as scribe
[2018-01-28] MEDS: ATORVASTATIN 20 MG TAB PO SCH (21:05)
[2018-01-29 02:36] VITALS: BP 114/69
[2018-01-29] MEDS: HYDROcodone/APAP 5-325MG 1 EACH TAB PO PRN ×2 (03:00→07:24)
[2018-01-29 07:16] VITALS: PULSE 70; RESP 16; TEMP 98
[2018-01-29] MEDS: HEPARIN SODIUM,PORCINE 5,000 UNIT/ML 1 ML VIAL SQ SCH (07:25)
[2018-01-29] MEDS: METOPROLOL TARTRATE 50 MG TAB PO SCH (07:25)
[2018-01-29] MEDS: PROPAFENONE 225 MG TAB PO SCH (07:25)
[2018-01-29] MEDS: SODIUM CHLORIDE 0.9% 1,000 ML IV SCH (07:25)
[2018-01-29 08:23] LABS: MCH 29.9 pg (25.0-35.0); MCHC 33.8 g/dL (31.0-37.0); MCV 88.4 fL (80.0-100.0); Mean Platelet Volume 7.1; Platelet Count 168 k/uL (150-450); RBC 3.06 m/uL (4.30-5.90); RDW 15.4 % (11.5-15.5)
[2018-01-29 08:33] LABS: WBC 36.5 k/uL (3.8-10.6)
[2018-01-29 08:34] LABS: HGB 9.1 gm/dL (13.0-17.5)
[2018-01-29 10:47] LABS: Band Neutrophils % 1 %; Lymphocytes # (M) 32.85 k/uL (1.0-4.8); Neutrophils % (M) 7 %; Nucleated Red Blood Cells 0 /100 WBC (0-0); Total Cells Counted 200
--- NOTE | 2018-01-29 13:43 | ECHOF ---
Referral Reason:pt to start chemo next week MEASUREMENTS -------- HEIGHT: 175.3 cm WEIGHT: 86.2 kg BP: 130/50 IVSd: 1.4 cm (0.6 - 1.1) LVIDd: 4.7 cm (3.9 - 5.3) LVPWd: 1.8 cm (0.6 - 1.1) IVSs: 1.7 cm LVIDs: 3.6 cm LVPWs: 1.4 cm LAESV Index (A-L): 47.78 ml/m Ao Diam: 3.9 cm (2.0 - 3.7) AV Cusp: 0.4 cm (1.5 - 2.6) LA Diam: 4.3 cm (2.7 - 3.8) MV EXCURSION: 18.221 mm (> 18.000) MV EF SLOPE: 95 mm/s (70 - 150) EPSS: 0.8 cm MV E Mamadou: 0.78 m/s MV DecT: 160 ms MV A Mamadou: 0.64 m/s MV E/A Ratio: 1.22 AV maxP.85 mmHg AV meanP.74 mmHg RAP: 5.00 mmHg RVSP: 39.20 mmHg FINDINGS -------- Sinus rhythm. This was a techncally difficult study with suboptimal views, , Definity utilized for enhancement of i mages. The left ventricular size is normal. There is mild concentric left ventricular hypertrophy. Overa ll left ventricular systolic function is mild-moderately impaired with, an EF between 40 - 45 %. An terseptal Hypokinesis Distal Septal Hypokinesis. The right ventricle is normal in size. LA is severely dilated >40 ml/m2 The right atrial size is normal. .5 lUMASON UTILIZED FOR ENCHANCEMENT OF IMAGES. The aortic valve was not well visualized. There is moderate to severe aortic valve sclerosis. The re is [id number] aortic stenosis present. Peak/mean gradient across the Aortic Valve is 38. 85mmHg / 22.74mmHg. Mild mitral annular calcification present. Moderate mitral regurgitation is present. Moderate tricuspid regurgitation present. There is mild pulmonary hypertension. The right ventric ular systolic pressure, as measured by Doppler, is 39.20mmHg. Trace/mild (physiologic) pulmonic regurgitation. The aortic root size is normal. There is no pericardial effusion. CONCLUSIONS -------- 1. This was a techncally difficult study with suboptimal views, , Definity utilized for enhancement o f images. 2. The left ventricular size is normal. 3. There is mild concentric left ventricular hypertrophy. 4. Overall left ventricular systolic function is mild-moderately impaired with, an EF between 40 - 45 %. 5. Anterseptal Hypokinesis 6. Distal Septal Hypokinesis. 7. LA is severely dilated >40 ml/m2 8. .5 lUMASON UTILIZED FOR ENCHANCEMENT OF IMAGES. 9. The aortic valve was not well visualized. 10. There is moderate to severe aortic valve sclerosis. 11. There is [id number] aortic stenosis present. 12. Peak/mean gradient across the Aortic Valve is 38.85mmHg / 22.74mmHg. 13. Mild mitral annular calcification present. 14. Moderate mitral regurgitation is present. 15. Moderate tricuspid regurgitation present. 16. There is mild pulmonary hypertension. 17. The right ventricular systolic pressure, as measured by Doppler, is 39.20mmHg. 18. Trace/mild (physiologic) pulmonic regurgitation. 19. The aortic root size is normal. 20. There is no pericardial effusion. LIFE SUPPORT TECHNICIAN: Darlyn Gutierrez RDCS
[2018-01-30] MEDS ORDERED: PROPAFENONE 225 MG TAB PO SCH (09:00)
== END 2018-01-29 13:45 | disposition home or self-care (01) | DRG 842 ==
LOC: EC 07:59 → 5ONC 11:49
PROVIDERS: ADMIT Internal Medicine; ATTEND Internal Medicine
PROC: 0DB98ZX Excision of Duodenum, Via Natural or Artificial Opening Endoscopic, Diagnostic (ICD-10-PCS; principal; 2018-01-27 09:30)
PROC: 0DJD8ZZ Inspection of Lower Intestinal Tract, Via Natural or Artificial Opening Endoscopic (ICD-10-PCS; principal; 2018-01-27 09:30)
PROC: 0DB58ZX Excision of Esophagus, Via Natural or Artificial Opening Endoscopic, Diagnostic (ICD-10-PCS; principal; 2018-01-27 09:30)
DX: C91.10 Chronic lymphocytic leukemia of B-cell type not having achieved remission (principal); D69.59 Other secondary thrombocytopenia; I48.0 Paroxysmal atrial fibrillation; D64.9 Anemia, unspecified; E78.5 Hyperlipidemia, unspecified; H26.9 Unspecified cataract; I10 Essential (primary) hypertension; I25.2 Old myocardial infarction; K29.70 Gastritis, unspecified, without bleeding; K29.80 Duodenitis without bleeding; K52.9 Noninfective gastroenteritis and colitis, unspecified; Z79.899 Other long term (current) drug therapy; Z82.49 Family history of ischemic heart disease and other diseases of the circulatory system; Z85.828 Personal history of other malignant neoplasm of skin; Z87.891 Personal history of nicotine dependence; Z92.21 Personal history of antineoplastic chemotherapy; F40.240 Claustrophobia; K57.90 Diverticulosis of intestine, part unspecified, without perforation or abscess without bleeding
CPT/HCPCS: 36415; 43239; 74176; 74177; 80048; 80053; 81003; 82150; 82728; 83010; 83540; 83550; 83615; 83690; 84550; 85025; 85045; 86850; 86900; 86901; 86920; 87040; 88305; 93306; 96361; 96374; 96375; 96376; 99285

== ENCOUNTER 2018-02-01 10:32 | Day surgery (SDC) | payer MEDICARE, BC ==
[2018-02-01 10:57] VITALS: BP 137/70; PULSE 63; RESP 18; TEMP 97.8
[2018-02-01] MEDS ORDERED: LIDOCAINE 2% INJ 20 MG/ML (20 ML MDV) ONE (11:37)
[2018-02-01] MEDS ORDERED: LIDOCAINE 2% INJ 20 MG/ML SQ ONE (11:40)
--- NOTE | 2018-02-02 11:06 | IR ---
PICC LINE PLACEMENT: HISTORY: Chemotherapy PROCEDURE: Ultrasound and fluoroscopic guidance of PICC line placement. COMPLICATIONS: None ANESTHESIA: 1. 1% Lidocaine locally. FINDINGS/TECHNIQUE: The procedure was explained to the patient. The risks, complications, benefits and alternatives were discussed and any questions were answered. Informed consent was obtained. The patient was placed supine on the fluoroscopic table and prepped and draped in the usual sterile [facility] ion. Utilizing a 21 gauge needle and sonographic and fluoroscopic guidance, access in the vein was achieved and there is placement of a 0.018 guidewire. The vein is patent. A 5-Fr sheath was placed over the guidewire. The guidewire and dilator were removed and a 5-F. Double lumen PICC line was pl aced through the sheath with the tip at the level of the SVC. The sheath was removed, the catheter w as flushed and sutured into position. The patient was stable throughout the procedure and remained s table upon discharge from the Department of Radiology. The vein puncture was patent under ultrasound. A okeefe scale image was obtained to document patency of the vein punctured. All elements of the maximal barrier technique were utilized. FLUOROSCOPY TIME: 0.2 minute, one image submitted IMPRESSION: Successful PICC double lumen line placement under ultrasound and fluoroscopic guidance.
== END 2018-02-01 12:05 | disposition home or self-care (01) ==
LOC: CATHCVL 10:32
PROVIDERS: ATTEND Radiology Diagnostic Radiology
DX: C91.90 Lymphoid leukemia, unspecified not having achieved remission (principal); I87.2 Venous insufficiency (chronic) (peripheral); J18.9 Pneumonia, unspecified organism; R53.81 Other malaise; I10 Essential (primary) hypertension; E78.5 Hyperlipidemia, unspecified; J06.9 Acute upper respiratory infection, unspecified; M25.50 Pain in unspecified joint; R59.1 Generalized enlarged lymph nodes; D60.9 Acquired pure red cell aplasia, unspecified; D59.1 Other autoimmune hemolytic anemias; Z79.899 Other long term (current) drug therapy; Z87.891 Personal history of nicotine dependence
CPT/HCPCS: 36569; 76937; 77001; C1751; C1769; J2001

== ENCOUNTER 2018-02-08 15:51 | Inpatient (IN) | payer MEDICARE, BC ==
[2018-02-08] MEDS ORDERED: SODIUM CHLORIDE 0.9% 1,000 ML IV STA ×2 (16:30)
[2018-02-08] MEDS ORDERED: PIPERACILLIN-TAZOBACTAM 3.375 GM in DEXTROSE/WATER 1 50ML.BAG IVPB STA ×2 (16:35→19:32)
[2018-02-08 17:12] LABS: Appearance,Urine Clear (Clear); Bilirubin,Urine Negative (Negative); Blood,Urine Negative (Negative); Color,Urine Yellow; Glucose,Urine (UA) Negative (Negative); Ketones,Urine Trace (Negative); Leukocyte Esterase,Urine Negative (Negative); Mucus,Urine Rare /hpf; Nitrite,Urine Negative (Negative); PH, Urine 6.5 (5.0-8.0); Protein,Urine 1+ (Negative); RBC,Urine 1 /hpf (0-5); Specific Gravity,Urine 1.018 (1.001-1.035); WBC,Urine 2 /hpf (0-5)
[2018-02-08 17:15] LABS: ALT 39 U/L (21-72); AST 22 U/L (17-59); Albumin 3.3 g/dL (3.5-5.0); Alkaline Phosphatase 97 U/L (38-126); Amylase <30 U/L (30-110); Anion Gap 14 mmol/L; Blood Urea Nitrogen 18 mg/dL (9-20); Calcium 8.7 mg/dL (8.4-10.2); Carbon Dioxide 23 mmol/L (22-30); Chloride 95 mmol/L (98-107); Glucose 136 mg/dL (74-99); Lipase 43 U/L (23-300); Potassium 3.8 mmol/L (3.5-5.1); Sodium 132 mmol/L (137-145); Total Protein 5.5 g/dL (6.3-8.2)
[2018-02-08 17:19] LABS: HCT 35.3 % (39.0-53.0); MCH 29.3 pg (25.0-35.0); MCHC 34.2 g/dL (31.0-37.0); MCV 85.6 fL (80.0-100.0); Mean Platelet Volume 7.5; Platelet Count 163 k/uL (150-450); RBC 4.13 m/uL (4.30-5.90); RDW 14.1 % (11.5-15.5); WBC 22.5 k/uL (3.8-10.6)
[2018-02-08 17:21] LABS: HGB 12.1 gm/dL (13.0-17.5)
--- NOTE | 2018-02-08 17:26 | XR ---
EXAMINATION TYPE: XR chest 2V DATE OF EXAM: 02/08/2018 COMPARISON: 07/24/2016 HISTORY: Chest pain TECHNIQUE: Frontal and lateral views of the chest are obtained. FINDINGS: There is a retrocardiac opacity that appears linear in configuration and similar to the pr ior exam of 2016. There is pulmonary hyperinflation and flattening of the diaphragms with increased r etrosternal airspace suggestive of underlying COPD. Chronic right hemidiaphragm elevation is noted. L eft PICC is seen terminating in the superior vena cava. Otherwise lungs are clear. No pneumothorax or pleural effusion. Heart is enlarged. IMPRESSION: 1. Retrocardiac opacity, similar to the exam of 2016 may represent chronic atelectasis. 2. No new focal consolidation. 3. Radiographic sequela of COPD.
--- NOTE | 2018-02-08 17:27 | XR ---
EXAMINATION TYPE: XR KUB DATE OF EXAM: 02/08/2018 5:16 PM CLINICAL HISTORY: Abdominal pain TECHNIQUE: Single supine KUB image of the abdomen is obtained. COMPARISON: None. FINDINGS: Scattered gas is seen in non-distended small bowel loops. Gas and fecal material is seen in non-distended colon. There is no visceromegaly, pneumoperitoneum, or abnormal calcification apprecia gerardo. There is colonic diverticula with inspissated debris are incidentally noted. The lung bases are clear and the osseous structures are intact. Moderate multilevel degenerative changes of the lumbar s pine are present. Mild femoral acetabular arthropathy is noted. Multiple phleboliths are seen within the low pelvis. IMPRESSION: 1. Nonobstructive bowel gas pattern. 2. Incidental note of sigmoid diverticulosis.
[2018-02-08 17:48] LABS: Nucleated Red Blood Cells 0 /100 WBC (0-0); Total Cells Counted 100
--- NOTE | 2018-02-08 19:14 | ED ---
Abdominal Pain HPI - General Chief Complaint: Abdominal Pain Stated Complaint: Abd Pain, Weakness Time Seen by Provider: 02/08/18 16:18 Source: patient Mode of arrival: wheelchair Limitations: no limitations - History of Present Illness Initial Comments: 77 years old male presents with the knot just feeling well he said his oral intake is very poor he didn't any thing for the last day and half he is nauseous. Her feel like eating his very feet he is having hard time ambulating last chemo was last Wednesday and he said he can't eat he can sleep. He was diagnosed with CLL and seeing Dr. Gil and he threw up right after when he had a chemo he denies any fever denies any chills just generalized weakness. No headaches no blurred vision no slurred speech, complaining about abdominal pain no frequency urgency dysuria no symptoms of TIA or CVA - Related Data Home Medications Medication Instructions Recorded Confirmed Propafenone [Rythmol] 225 mg PO BID 12/04/15 02/08/18 Simvastatin [Zocor] 40 mg PO HS 01/23/18 02/08/18 amLODIPine [Norvasc] 2.5 mg PO DAILY 01/23/18 02/08/18 Previous Rx's Medication Instructions Recorded Metoprolol Tartrate [Lopressor] 50 mg PO BID tab 07/24/16 HYDROcodone/APAP 5-325MG [Gilby 1 tab PO Q4HR PRN #60 tab 01/29/18 5-325] Allergies Allergy/AdvReac Type Severity Reaction Status Date / Time No Known Allergies Allergy Verified 02/08/18 16:39 Review of Systems ROS Statement: Those systems with pertinent positive or pertinent negative responses have been documented in the HPI. ROS Other: All systems not noted in ROS Statement are negative. Past Medical History Past Medical History: Atrial Fibrillation, Cancer, Hyperlipidemia, Myocardial Infarction ([place]) Additional Past Medical History / Comment(s): arrhythmia, chronic lymphocytic leukemia, inguinal hernia, hx skin cancer, Last Myocardial Infarction Date:: 1997 History of Any Multi-Drug Resistant Organisms: None Reported Past Surgical History: Hernia Repair, Orthopedic Surgery, Tonsillectomy Additional Past Surgical History / Comment(s): bilateral rotator cuffs, Past Anesthesia/Blood Transfusion Reactions: No Reported Reaction Additional Past Anesthesia/Blood Transfusion Reaction / Comment(s): clausterphobia Past Psychological History: No Psychological Hx Reported Smoking Status: Former smoker Past Alcohol Use History: None Reported Past Drug Use History: None Reported - Past Family History Mother Family Medical History: No Reported History Father Family Medical History: Congestive Heart Failure (CHF) Additional Family Medical History / Comment(s): PAD General Exam - General Exam Comments Initial Comments: General: The patient is awake and alert, pale and tired Skin: Skin is warm and dry and no rashes or lesions are noted. Eye: Pupils are equal, round and reactive to light, extra-ocular movements are intact; there is normal conjunctiva bilaterally. Ears, nose, mouth and throat: There are moist mucous membranes and no oral lesions. Neck: The neck is supple, there is no tenderness or JVD. Cardiovascular: There is a regular rate and rhythm. No murmur, rub or gallop is appreciated. Respiratory: To auscultation bilateral, no wheezing no rhonchi no distress respiratory mortensen noticed Gastrointestinal: The tender all over positive bowel sounds no guarding no rebounds Back: There is no tenderness to palpation in the midline. There is no obvious deformity. Musculoskeletal: Normal ROM, no tenderness, There is no pedal edema. There is no calf tenderness or swelling. No cords were appreciated. Neurological: CN II-XII intact, Cranial nerves III through XII are intact. There are no obvious motor or sensory deficits. Coordination appears grossly intact. Speech is normal. Psychiatric: Cooperative, seems definitely depressed Limitations: no limitations Course Vital Signs 02/08/18 02/08/18 02/08/18 15:55 17:28 17:30 Temperature 99.8 F H Pulse Rate 107 H 99 Respiratory 20 18 Rate Blood Pressure 118/66 103/62 O2 Sat by Pulse 94 L 92 L 95 Oximetry 02/08/18 18:19 Temperature 98.1 F Pulse Rate 98 Respiratory 18 Rate Blood Pressure 120/60 O2 Sat by Pulse 95 Oximetry Patient was reassessed, noticed white count is 22.5, CMP is normal troponin is unremarkable urinalysis is unremarkable chest x-rays negative consistent with a COPD history. His hemoglobin was 9 hemoglobin today is a 12.1 and seems dehydrated Medical Decision Making - Lab Data Result diagrams: 02/08/18 16:48 02/08/18 16:48 Lab Results 02/08/18 02/08/18 02/08/18 Range/Units 16:48 16:48 16:48 WBC 22.5 H (3.8-10.6) k/uL RBC 4.13 L (4.30-5.90) m/uL Hgb 12.1 L D (13.0-17.5) gm/dL Hct 35.3 L (39.0-53.0) % MCV 85.6 (80.0-100.0) fL MCH 29.3 (25.0-35.0) pg MCHC 34.2 (31.0-37.0) g/dL RDW 14.1 (11.5-15.5) % Plt Count 163 (150-450) k/uL Lymphocytes % (Manual) 100 % Lymphocytes # (Manual) 22.50 H (1.0-4.8) k/uL Nucleated RBCs 0 (0-0) /100 WBC Manual Slide Review Performed Sodium 132 L (137-145) mmol/L Potassium 3.8 (3.5-5.1) mmol/L Chloride 95 L (98-107) mmol/L Carbon Dioxide 23 (22-30) mmol/L Anion Gap 14 mmol/L BUN 18 (9-20) mg/dL Creatinine 0.84 (0.66-1.25) mg/dL Est GFR (CKD-EPI)AfAm >90 (>60 ml/min/1.73 sqM) Est GFR (CKD-EPI)NonAf 83 (>60 ml/min/1.73 sqM) Glucose 136 H (74-99) mg/dL Plasma Lactic Acid Ovidio (0.7-2.0) mmol/L Calcium 8.7 (8.4-10.2) mg/dL Total Bilirubin 2.0 H (0.2-1.3) mg/dL AST 22 (17-59) U/L ALT 39 (21-72) U/L Alkaline Phosphatase 97 (38-126) U/L Troponin I <0.012 (0.000-0.034) ng/mL Total Protein 5.5 L (6.3-8.2) g/dL Albumin 3.3 L (3.5-5.0) g/dL Amylase <30 L (30-110) U/L Lipase 43 (23-300) U/L Urine Color Urine Appearance (Clear) Urine pH (5.0-8.0) Ur Specific [place] (1.001-1.035) Urine Protein (Negative) Urine Glucose (UA) (Negative) Urine Ketones (Negative) Urine Blood (Negative) Urine Nitrite (Negative) Urine Bilirubin (Negative) Urine Urobilinogen (<2.0) mg/dL Ur Leukocyte Esterase (Negative) Urine RBC (0-5) /hpf Urine WBC (0-5) /hpf Urine Mucus (None) /hpf 02/08/18 02/08/18 Range/Units 16:48 16:50 WBC (3.8-10.6) k/uL RBC (4.30-5.90) m/uL Hgb (13.0-17.5) gm/dL Hct (39.0-53.0) % MCV (80.0-100.0) fL MCH (25.0-35.0) pg MCHC (31.0-37.0) g/dL RDW (11.5-15.5) % Plt Count (150-450) k/uL Lymphocytes % (Manual) % Lymphocytes # (Manual) (1.0-4.8) k/uL Nucleated RBCs (0-0) /100 WBC Manual Slide Review Sodium (137-145) mmol/L Potassium (3.5-5.1) mmol/L Chloride (98-107) mmol/L Carbon Dioxide (22-30) mmol/L Anion Gap mmol/L BUN (9-20) mg/dL Creatinine (0.66-1.25) mg/dL Est GFR (CKD-EPI)AfAm (>60 ml/min/1.73 sqM) Est GFR (CKD-EPI)NonAf (>60 ml/min/1.73 sqM) Glucose (74-99) mg/dL Plasma Lactic Acid Ovidio 1.1 (0.7-2.0) mmol/L Calcium (8.4-10.2) mg/dL Total Bilirubin (0.2-1.3) mg/dL AST (17-59) U/L ALT (21-72) U/L Alkaline Phosphatase (38-126) U/L Troponin I (0.000-0.034) ng/mL Total Protein (6.3-8.2) g/dL Albumin (3.5-5.0) g/dL Amylase (30-110) U/L Lipase (23-300) U/L Urine Color Yellow Urine Appearance Clear (Clear) Urine pH 6.5 (5.0-8.0) Ur Specific [place] 1.018 (1.001-1.035) Urine Protein 1+ H (Negative) Urine Glucose (UA) Negative (Negative) Urine Ketones Trace H (Negative) Urine Blood Negative (Negative) Urine Nitrite Negative (Negative) Urine Bilirubin Negative (Negative) Urine Urobilinogen 2.0 (<2.0) mg/dL Ur Leukocyte Esterase Negative (Negative) Urine RBC 1 (0-5) /hpf Urine WBC 2 (0-5) /hpf Urine Mucus Rare H (None) /hpf Disposition Clinical Impression: Generalized weakness, Lethargy, Dehydration Disposition: ADMITTED IP TO THIS [facility] Condition: Good Referrals: Escobar Reaves MD [Primary Care Provider] - 1-2 days
[2018-02-08] MEDS ORDERED: ACETAMINOPHEN TAB 325 MG TAB PO PRN (19:23)
[2018-02-08] MEDS ORDERED: NALOXONE 0.4 MG/ML 1 ML VIAL IV PRN (19:23)
[2018-02-08] MEDS ORDERED: HYDROcodone/APAP 5-325MG 1 EACH TAB PO PRN ×2 (19:33→19:56)
[2018-02-08] MEDS: PROPAFENONE 225 MG TAB PO SCH (20:35)
[2018-02-08] MEDS: DEXTROSE 5%-0.9% NACL 1,000 ML IV SCH (20:35)
[2018-02-08] MEDS: METOPROLOL TARTRATE 50 MG TAB PO SCH (20:35)
[2018-02-08] MEDS: ATORVASTATIN 20 MG TAB PO SCH (20:35)
[2018-02-08] MEDS: ONDANSETRON 4 MG/2 ML VIAL IVP PRN (20:40)
[2018-02-08] MEDS: ALPRAZolam 0.25 MG TAB PO PRN (22:01)
--- NOTE | 2018-02-08 22:56 | HP ---
HISTORY AND PHYSICAL CHIEF COMPLAINT: Weakness. HISTORY OF PRESENT ILLNESS: This 77-year-old gentleman presents to the emergency room because he cannot take care of himself, as he feels extremely weak and tired and has not been able to eat much for the past 2 days. The patient is denying other associated symptoms of fever or chills. No nausea or vomiting. No diarrhea; has small bowel movements. His abdomen, though no excruciating pain, complains of some rumbling. The patient was recently hospitalized with abdominal pain, noted to have significant amount of lymphadenopathy rapidly progressing in the abdomen. He has a history of chronic lymphocytic leukemia and has been started on chemotherapy outpatient; not sure of what the chemotherapy is. The patient has had 3 cycles over 3 days. The patient's last therapy was on Wednesday last week; that is 4 days ago. He does have a decrease in his lymphocyte count to 22,500. His platelet counts are stable; however, his CBC reveals that all the patient's white cells are all lymphocytes. No neutrophils are noted. The patient had a temperature of 99.8 in the emergency room. Patient has minimal cough. Otherwise no dysuria or hematuria. No skin rashes. Oral cavity: No symptoms. Throat: No symptoms. PAST MEDICAL HISTORY: 1. Past medical history is primarily significant for chronic lymphocytic leukemia. 2. He has had one episode of atrial fibrillation. 3. History of coronary artery disease. 4. Hypertension. 5. Degenerative arthritis, especially affecting the right knee. Otherwise, no liver disease, kidney disease, ulcers, TB, hepatitis. No history of any rheumatic fever, myocardial infarction or CVA. SURGICAL HISTORY: 1. Hernia repair. 2. Tonsillectomy. 3. Cataract surgery. PERSONAL HISTORY: Nonsmoker. No alcohol. FAMILY MEDICAL HISTORY: One son in good health. One brother with history of coronary artery disease. Mother had congestive cardiac disease. SOCIAL HISTORY: Patient is , lives with his spouse. REVIEW OF SYSTEMS: NEURO: Denies any headaches, dizziness. No double vision or blurred vision. No symptoms of TIA or syncope or seizures. PSYCH: Some anxiety, apprehension, depression. CARDIAC: No chest pain, angina, palpitation. RESPIRATORY: Denies shortness of breath. Mild cough. No hemoptysis. GI: No nausea, vomiting. Some abdominal discomfort. Poor appetite. No diarrhea. Mild constipation. : No symptoms of dysuria, hematuria. EXTREMITIES: Denies pain, edema. CONSTITUTIONAL: No fever or chills. Generalized malaise and weakness. PHYSICAL EXAMINATION: Vital signs revealed temperature 99.8, pulse 107, respirations 20, blood pressure 118/66, pulse ox of 94% on room air. HEENT: Normocephalic. Neck with no JVD. Oral cavity is dry. Pupils are reactive. Nostrils are clear. Neck reveals no JVD. No carotid bruits. No thyromegaly. Chest examination is clear to percussion. The patient has some crackles in the right mid zone posteriorly at the subscapular area. CARDIAC: Otherwise normal. S1, S2 with no gallops, murmurs, rubs. ABDOMEN: Soft, protuberant. Minimal tenderness, right paraumbilical area. Bowel sounds are active. Extremities reveal no edema. Good pulses, both upper lower extremities. Neurologically awake, alert, oriented x3. Well-coordinated movements. LABORATORY ASSESSMENT: Hemoglobin 12.1, white count 22.5, all of them lymphocytes. Sodium 132, BUN 18, glucose 136. Lactic acid is 1.1. Bilirubin 2.0. Troponins negative. Albumin 3.3. Lipase and amylase are normal. Urine specific gravity 1.018, 1+ protein; otherwise no evidence of infection. Chest x-ray reported as retrocardiac opacity similar to the exam of 2016; may represent chronic atelectasis; no new focal consolidation; changes of COPD. ASSESSMENT: 1. Neutropenia. 2. Chronic lymphocytic leukemia, on chemotherapy. His previously recently noted axillary nodes also have resolved. 3. Generalized malaise. 4. Dehydration. 5. History of paroxysmal atrial fibrillation. 6. Coronary artery disease. PLAN: Continue present medical regimen. Patient's condition discussed with the patient. Prognosis guarded. He will be hydrated. He has been started on Zosyn empirically, pending culture results. I will ask Oncology to evaluate the patient regarding his leukemia and especially the leukopenia. Prognosis remains guarded. MMODL / IJN: [id number] /
[2018-02-09] MEDS: PIPERACILLIN-TAZOBACTAM 3.375 GM in DEXTROSE/WATER 1 50ML.BAG IVPB SCH ×4 (01:01→23:24)
[2018-02-09 08:09] LABS: HGB 10.2 gm/dL (13.0-17.5); MCV 87.8 fL (80.0-100.0); Mean Platelet Volume 7.7; Platelet Count 134 k/uL (150-450); RBC 3.53 m/uL (4.30-5.90); RDW 14.3 % (11.5-15.5); WBC 16.5 k/uL (3.8-10.6)
[2018-02-09] MEDS: amLODIPine 2.5 MG TAB PO SCH (08:12)
[2018-02-09] MEDS: PROPAFENONE 225 MG TAB PO SCH ×2 (08:12→20:42)
[2018-02-09] MEDS: PANTOPRAZOLE 40 MG/10 ML VIAL IV SCH (08:12)
[2018-02-09] MEDS: METOPROLOL TARTRATE 50 MG TAB PO SCH ×2 (08:12→20:42)
[2018-02-09 08:14] LABS: Anion Gap 9 mmol/L; Blood Urea Nitrogen 16 mg/dL (9-20); Carbon Dioxide 24 mmol/L (22-30); Chloride 102 mmol/L (98-107); Glucose 116 mg/dL (74-99); Potassium 3.3 mmol/L (3.5-5.1); Sodium 135 mmol/L (137-145)
[2018-02-09 10:49] LABS: Monocytes # (M) 0.17 k/uL (0-1.0); Nucleated Red Blood Cells 0 /100 WBC (0-0); Total Cells Counted 200
[2018-02-09 10:50] LABS: Poikilocytosis (M) Present
[2018-02-09 11:25] VITALS: BMI 28.8
[2018-02-09] MEDS: DEXTROSE 5%-0.9% NACL 1,000 ML IV SCH ×2 (12:33→20:42)
[2018-02-09] MEDS: SODIUM CHLORIDE 0.9% 1,000 ML IV SCH ×2 (13:22→23:26)
[2018-02-09] MEDS: HEPARIN SODIUM,PORCINE 5,000 UNIT/ML 1 ML VIAL SQ SCH ×2 (13:23→20:43)
[2018-02-09] MEDS: POTASSIUM CHLORIDE ER 20 MEQ TAB.ER PO SCH ×3 (13:23→17:28)
--- NOTE | 2018-02-09 14:02 | P.CONS ---
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 Lee ss a very pleasant 77-year-old male patient of Dr. Hernandez. 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 Patient was started on CEOP with Neulasta, he completed 1st cycle on 02/05. Since treatment patient states feeling "worse than I ever have before". He has poor appetite, nausea, vomiting, poor oral intake, weakness and loss of energy. Patient denies fevers, oral irritation, some mild postnasal drip and a slightly productive cough, denied purulent sputum or hemoptysis, no dysuria hematuria, diarrhea or swelling. His abdominal distention and back pain are slightly improved since treatment. Malignancy History: Pt was diagnosed with stage 0 CLL in 2003, observation only until 06/16, WBC increased and platelets decreased, he had palpable adenopathy. He was treated with bendamustine and rituxan x 4 cycles and then monitoring. He has required intermittent treatment for thrombocytopenia with high dose decadron. He continued on follow up and in early 2013 he had a bone marrow aspiration and biopsy done for persistent leukopenia, this showed CLL, as expected but, no new findings. He was treated with Rituxan x 4 and went back to monitoring. In 10/21 plt fell and he had lymphadenopathy again, he received treatment with Rituxan and dexamethasone, counts normalized and nodes diminished. 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 He was treated with Rituxan and bendeka for 6 cycles completed 12/25. He did well until he started having abd distension, bloating and back pain in mid January 2018. Colon and EGD were done to ensure no other pathophysiology, those exams did not yield a pathology for pt symptoms so, progressive CLL was determined to be the cause and pt has resumed treatment for the same. Review of Systems 14 point ROS as stated in HPI Past Medical History Past Medical History: Atrial Fibrillation, Cancer, Hyperlipidemia, Hypertension , Myocardial Infarction ([place]), Pneumonia Additional Past Medical History / Comment(s): arrhythmia, chronic lymphocytic leukemia pt stated had chem on 02-01-18/02-02-18 and 02-03-18 , inguinal hernia, hx skin cancer, nstemi 07-12-16 per summary-pt not aware of this. had shigelles vaccine 2011 and in 2012 got a case of the shingelles. 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 Last Myocardial Infarction Date:: 1997 History of Any Multi-Drug Resistant Organisms: None Reported Past Surgical History: Hernia Repair, Orthopedic Surgery, Tonsillectomy Additional Past Surgical History / Comment(s): bilateral rotator cuffs, cataracts, umb hernia repair, rt axilla lymph node bx.colonscopy Past Anesthesia/Blood Transfusion Reactions: No Reported Reaction Additional Past Anesthesia/Blood Transfusion Reaction / Comm: clausterphobia. had blood transfusion- no reaction Past Psychological History: No Psychological Hx Reported Smoking Status: Former smoker Past Alcohol Use History: None Reported Past Drug Use History: None Reported - Past Family History Mother Family Medical History: No Reported History Additional Family Medical History / Comment(s): pt stated his mom was healthy never went to the . dropped at age 70 Father Family Medical History: Congestive Heart Failure ([place]F), Myocardial Infarction ( [place]), Vascular Disorder Additional Family Medical History / Comment(s): at age 75. hx heavy smoker Medications and Allergies Home Medications Medication Instructions Recorded Confirmed Type Propafenone [Rythmol] 225 mg PO BID 12/04/15 02/08/18 History Metoprolol Tartrate [Lopressor] 50 mg PO BID tab 07/24/16 02/08/18 Rx Simvastatin [Zocor] 40 mg PO HS 01/23/18 02/08/18 History amLODIPine [Norvasc] 2.5 mg PO DAILY 01/23/18 02/08/18 History HYDROcodone/APAP 5-325MG [Parker 1 tab PO Q4HR PRN #60 tab 01/29/18 02/08/18 Rx 5-325] Allergies Allergy/AdvReac Type Severity Reaction Status Date / Time No Known Allergies Allergy Verified 02/08/18 16:39 Physical Exam Vitals: Vital Signs Temp Pulse Pulse Resp BP BP Pulse Ox 04/04/18 07:00 97.6 F 74 16 117/69 97 02/08/18 22:00 18 02/08/18 21:11 98.1 F 93 18 124/69 94 L 02/08/18 19:10 98.9 F 96 18 115/62 95 02/08/18 18:19 98.1 F 98 18 120/60 95 02/08/18 17:30 95 02/08/18 17:28 99 18 103/62 92 L 02/08/18 15:55 99.8 F H 107 H 20 118/66 94 L Intake and Output 02/08/18 02/09/18 02/09/18 22:59 06:59 14:59 Intake Total 400 1100 Balance 400 1100 Intake: Intake, IV Titration 150 850 Amount Dextrose 5%-0.9% NaCl 1, 100 800 000 ml @ 100 mls/hr IV . Q10H LIZZIE Rx#:[id number] Piperacillin-Tazobactam 3 50 .375 gm In Dextrose/Water 1 50ml.bag @ 12.5 mls/hr IVPB ONCE STA Rx#: [id number] Piperacillin-Tazobactam 3 50 .375 gm In Dextrose/Water 1 50ml.bag @ 12.5 mls/hr IVPB Q8HR LIZZIE Rx#: [id number] Oral 250 250 Other: Voiding Method Toilet Toilet # Voids 3 Weight 86.183 kg 86.183 kg - Constitutional General appearance: average body habitus, cooperative, no acute distress - EENT Eyes: anicteric sclerae, EOMI, normal appearance ENT: hearing grossly normal, normal oropharynx - Neck left anterior cervical shotty lymph nodes palpated, smaller, softer, more defined then previously Neck: lymphadenopathy - Respiratory Respiratory: bilateral: CTA - Cardiovascular Rhythm: regular Heart sounds: normal: S1, S2 leg Peripheral Edema: bilateral: None - Gastrointestinal mild distension, fullness on deep palpation but, masses/lymphadenopathy was palpable previously General gastrointestinal: no absent bowel sounds, no decreased bowel sounds, distended, no hepatomegaly, no hyperactive bowel sounds, normal bowel sounds, no organomegaly, no rigid, no scaphoid, soft, no splenomegaly, no tenderness, no umbilical hernia, no ventral hernia - Integumentary Integumentary: pale - Neurologic Neurologic: CNII-XII intact - Musculoskeletal Musculoskeletal: generalized weakness, strength equal bilaterally - Psychiatric Psychiatric: A&O x's 3, appropriate affect, intact judgment & insight Results CBC & Chem 7: 02/09/18 07:09 02/09/18 07:09 Labs: Abnormal Lab Results - Last 24 Hours (Table) 02/08/18 02/08/18 02/08/18 Range/Units 16:48 16:48 16:50 WBC 22.5 H (3.8-10.6) k/uL RBC 4.13 L (4.30-5.90) m/uL Hgb 12.1 L D (13.0-17.5) gm/dL Hct 35.3 L (39.0-53.0) % Plt Count (150-450) k/uL Lymphocytes # (Manual) 22.50 H (1.0-4.8) k/uL Sodium 132 L (137-145) mmol/L Potassium (3.5-5.1) mmol/L Chloride 95 L (98-107) mmol/L Glucose 136 H (74-99) mg/dL Calcium (8.4-10.2) mg/dL Total Bilirubin 2.0 H (0.2-1.3) mg/dL Total Protein 5.5 L (6.3-8.2) g/dL Albumin 3.3 L (3.5-5.0) g/dL Amylase <30 L (30-110) U/L Urine Protein 1+ H (Negative) Urine Ketones Trace H (Negative) Urine Mucus Rare H (None) /hpf 02/09/18 02/09/18 Range/Units 07:09 07:09 WBC 16.5 H (3.8-10.6) k/uL RBC 3.53 L (4.30-5.90) m/uL Hgb 10.2 L (13.0-17.5) gm/dL Hct 31.0 L (39.0-53.0) % Plt Count 134 L (150-450) k/uL Lymphocytes # (Manual) 16.50 H (1.0-4.8) k/uL Sodium 135 L (137-145) mmol/L Potassium 3.3 L (3.5-5.1) mmol/L Chloride (98-107) mmol/L Glucose 116 H (74-99) mg/dL Calcium 8.0 L (8.4-10.2) mg/dL Total Bilirubin (0.2-1.3) mg/dL Total Protein (6.3-8.2) g/dL Albumin (3.5-5.0) g/dL Amylase (30-110) U/L Urine Protein (Negative) Urine Ketones (Negative) Urine Mucus (None) /hpf Microbiology - Last 24 Hours (Table) 02/08/18 16:50 Urine Culture - Preliminary Urine,Clean Catch Chest x-ray: report reviewed Abdominal x-ray: report reviewed Assessment and Plan (1) CLL (chronic lymphocytic leukemia) Narrative/Plan: See below Current Visit: Yes Status: Chronic Priority: High Code(s): C91.10 - CHRONIC LYMPHOCYTIC LEUK OF B-CELL TYPE NOT ACHIEVE REMIS SNOMED Code(s): 51994974 (2) Bravo's syndrome Narrative/Plan: On pt previous visit just a few weeks ago his clinical presentation and CLL history suspicion was transformation to a B cell lymphoma so he was started on treatment for progressive disease after discharge. Pt has received his 1st cycle of CEOP with neulasta on 02/05. He has improvement in symptoms and lymphadenopathy. Due to treatment side effects he will likely need dose reduction. Will have him follow up with us prior to next cycle. Current Visit: Yes Status: Acute Priority: High Code(s): C91.10 - CHRONIC LYMPHOCYTIC LEUK OF B-CELL TYPE NOT ACHIEVE REMIS SNOMED Code(s): 028776405 (3) Antineoplastic chemotherapy induced anemia Narrative/Plan: Mild at this time, pt has not reached shravan so, CBC daily, conservative transfusions only. Current Visit: Yes Status: Acute Priority: Low Code(s): D64.81 - ANEMIA DUE TO ANTINEOPLASTIC CHEMOTHERAPY; T45.1X5A - ADVERSE EFFECT OF ANTINEOPLASTIC AND IMMUNOSUP DRUGS, INIT SNOMED Code(s): 571268214 (4) Dehydration Narrative/Plan: Mulitfactorial including chemo induced nausea and loss of appetite/oral intake from treatment. Agree with gentle hydration, supportive meds for symptoms and encourage oral intake. Current Visit: Yes Status: Acute Priority: High Code(s): E86.0 - DEHYDRATION SNOMED Code(s): 75049680 (5) Generalized weakness Narrative/Plan: Secondary to treatment. PT/OT ordered Current Visit: Yes Status: Acute Priority: High Code(s): R53.1 - WEAKNESS SNOMED Code(s): 53236029 (6) Leukocytosis Narrative/Plan: Lymphocytosis from CLL, likely GCSF has contributed. Cont to monitor. Current Visit: Yes Status: Acute Priority: Medium Code(s): D72.829 - ELEVATED WHITE BLOOD CELL COUNT, UNSPECIFIED SNOMED Code(s): 893174748 Plan: Doctor attests: I performed a history and physical examination of this patient, discussed with dictator. I agree with dictators note, documented as a scribe.
[2018-02-09] MEDS: ATORVASTATIN 20 MG TAB PO SCH (20:42)
[2018-02-09] MEDS: ZOLPIDEM 5 MG TAB PO SCH (21:38)
--- NOTE | 2018-02-09 23:27 | PN ---
PROGRESS NOTE CHIEF COMPLAINT: Re-evaluation. HISTORY OF PRESENT ILLNESS: This gentleman with a history of CLL and lymphoma is status post chemotherapies. The patient had significant malaise, low-grade temperature at the time of admission. The patient has decreased appetite. He is feeling minimally better today; no worse. The patient is noted to have only lymphocytosis; no neutrophils are seen on the CBC. The patient's peripheral smear is also pending. The patient has had no fever. He has been hydrated. REVIEW OF SYSTEMS: NEURO: Denies any headaches, dizziness. PSYCH: Some symptoms of depression. The patient has not been able to sleep. He feels that it is because of the steroids he had gotten. CARDIAC: Denies chest pain, angina, palpitation. RESPIRATORY: Denies shortness of breath, cough, hemoptysis. GI: Denies any nausea, vomiting, abdominal pain, diarrhea. : Denies any symptoms of dysuria, hematuria, urgency, frequency. EXTREMITIES: Denies pain, edema. CONSTITUTIONAL: No fever, chills. PHYSICAL EXAMINATION: Pleasant gentleman who is not his usual pleasant happy person. He feels somewhat weak. Vital signs revealed temperature 97.6, pulse 74, respirations 16, blood pressure 117/69, pulse ox 97% on 2 L. HEENT: Normocephalic. NECK: Supple. No JVD. CHEST: Clear to auscultation and percussion with some decreased air flow at the right mid zone. ABDOMEN: Soft. No palpable masses. Bowel sounds normal. No organomegaly. No abdominal bruits. Extremities reveal no edema. Good pulses, both upper and lower extremities. Neurologically awake, alert, oriented x3 with well-coordinated movements. LYMPH: none in the cervical, supraclavicular, axillary or inguinal area palpable. Prior to chemotherapy he did have bilateral axillary lymph nodes and intraabdominal lymphadenopathy. LABORATORY EVALUATION: Blood cultures negative at 48 hours. CBC revealed a white count down to 16.5, predominantly lymphocytes; 100% lymphocytes. Hemoglobin down to 10.2 with hydration. Platelets down to 134. Potassium down to 3.3. Sodium 135, random glucose 116. ASSESSMENT: 1. Chronic lymphocytic leukemia/lymphoma. 2. Status post chemotherapy. 3. Absolute neutropenia. 4. Malaise, low-grade fever; possibility of infection such as pneumonia not ruled out. PLAN: Continue present medical regimen with the Unasyn. Patient will have a repeat chest x- ray done in the morning. Labs will be checked. Will check with the oncologist, as they have not made any comment about the neutropenia. MMODL / IJN: [id number] /
[2018-02-10] MEDS: SODIUM CHLORIDE 0.9% 1,000 ML IV SCH (03:32)
[2018-02-10] MEDS: ONDANSETRON 4 MG/2 ML VIAL IVP PRN (05:07)
[2018-02-10 07:23] LABS: HCT 33.1 % (39.0-53.0); MCH 29.4 pg (25.0-35.0); MCHC 33.1 g/dL (31.0-37.0); MCV 88.9 fL (80.0-100.0); Platelet Count 161 k/uL (150-450); RBC 3.72 m/uL (4.30-5.90); RDW 14.2 % (11.5-15.5); WBC 23.7 k/uL (3.8-10.6)
[2018-02-10 07:59] LABS: Lymphocytes # (M) 22.99 k/uL (1.0-4.8); Monocytes # (M) 0.24 k/uL (0-1.0); Neutrophils # (M) 0.47 k/uL (1.3-7.7); Neutrophils % (M) 2 %; Nucleated Red Blood Cells 0 /100 WBC (0-0); Total Cells Counted 100
[2018-02-10 08:01] LABS: Poikilocytosis (M) Present
[2018-02-10] MEDS: PANTOPRAZOLE 40 MG/10 ML VIAL IV SCH (08:25)
[2018-02-10] MEDS: PIPERACILLIN-TAZOBACTAM 3.375 GM in DEXTROSE/WATER 1 50ML.BAG IVPB SCH ×3 (08:25→23:48)
[2018-02-10] MEDS: METOPROLOL TARTRATE 50 MG TAB PO SCH ×2 (08:26→20:35)
[2018-02-10] MEDS: PROPAFENONE 225 MG TAB PO SCH ×2 (08:26→20:35)
[2018-02-10] MEDS: amLODIPine 2.5 MG TAB PO SCH (08:26)
[2018-02-10] MEDS: HEPARIN SODIUM,PORCINE 5,000 UNIT/ML 1 ML VIAL SQ SCH ×2 (08:26→20:35)
--- NOTE | 2018-02-10 10:07 | XR ---
EXAMINATION TYPE: XR chest 2V DATE OF EXAM: 02/10/2018 COMPARISON: 02/08/2018 HISTORY: Shortness of breath TECHNIQUE: Frontal and lateral views of the chest are obtained. FINDINGS: There is no focal air space opacity, pleural effusion, or pneumothorax seen. The cardiac silhouette size is within normal limits. The osseous structures are intact. Stable enlargement of t he hilar vasculature may be related to underlying pulmonary arterial hypertension. Left-sided PICC is also in unchanged position. Mild acromioclavicular and glenohumeral arthropathy are noted. Unchanged retrocardiac opacity from 2016 again likely represents chronic atelectasis. Pulmonary hyperinflation and flattening the diaphragms is seen representing underlying COPD. IMPRESSION: Chronic changes with no acute cardiopulmonary process.
--- NOTE | 2018-02-10 14:26 | P.PN ---
Subjective Progress Note Date: 02/10/18 Principal diagnosis: pt seen in follow up, he is feeling better, tolerating oral intake, minimal nausea, no fevers or vomiting, cultures negative to this point. Objective - Vital Signs Vital signs: Vital Signs Temp 98.0 F 02/10/18 07:00 Pulse 72 02/10/18 09:21 Resp 18 02/10/18 09:21 BP 115/68 02/10/18 07:00 Pulse Ox 96 02/10/18 08:25 Intake & Output 02/09/18 02/10/18 02/10/18 18:59 06:59 18:59 Intake Total 600 1250 Output Total 300 Balance 600 950 Weight 86.183 kg 86.183 kg Intake: Intake, IV Titration 600 1000 Amount Piperacillin-Tazobactam 3 100 .375 gm In Dextrose/Water 1 50ml.bag @ 12.5 mls/hr IVPB Q8HR LIZZIE Rx#: [id number] Sodium Chloride 0.9% 1, 600 900 000 ml @ 75 mls/hr IV . [id number] LIZZIE Rx#:[id number] Oral 250 Output: Urine 300 Other: Voiding Method Toilet Toilet Toilet # Bowel Movements 3 - Exam A&Ox4, ambulating independently, NAD, respirations even and unlabored, better color today. - Labs CBC & Chem 7: 02/10/18 06:44 02/09/18 07:09 Labs: Abnormal Lab Results - Last 24 Hours (Table) 02/10/18 Range/Units 06:44 WBC 23.7 H (3.8-10.6) k/uL RBC 3.72 L (4.30-5.90) m/uL Hgb 11.0 L (13.0-17.5) gm/dL Hct 33.1 L (39.0-53.0) % Neutrophils # (Manual) 0.47 L (1.3-7.7) k/uL Lymphocytes # (Manual) 22.99 H (1.0-4.8) k/uL Microbiology - Last 24 Hours (Table) 02/08/18 16:48 Blood Culture - Preliminary Blood No Growth after 24 hours Assessment and Plan (1) Chemotherapy induced neutropenia Narrative/Plan: ANC 400 today from 0 on admit. Pt did recieve GCSF about 6 days ago and those effects are anticipated in the next 4-5 days, no further GCSF support at this time. Did discuss case with Attending, concerns for a pneumonia, CXR was being ordered for review. Once pt cleared from IM standpoint and Consulting Physicians he can be discharged CBC daily while inpatient Current Visit: Yes Status: Acute Priority: High Code(s): D70.1 - AGRANULOCYTOSIS SECONDARY TO CANCER CHEMOTHERAPY; T45.1X5A - ADVERSE EFFECT OF ANTINEOPLASTIC AND IMMUNOSUP DRUGS, INIT SNOMED Code(s): 545651161 (2) CLL (chronic lymphocytic leukemia) Narrative/Plan: Pt treatment regimen will be reviewed prior to next cycle to determine, if any, dose adjustment need to be made to decrease side effects. Pt also encouraged to use supportive meds for symptom management more readily Current Visit: Yes Status: Chronic Priority: High Code(s): C91.10 - CHRONIC LYMPHOCYTIC LEUK OF B-CELL TYPE NOT ACHIEVE REMIS SNOMED Code(s): 30794270 (3) Bravo's syndrome Current Visit: Yes Status: Acute Priority: High Code(s): C91.10 - CHRONIC LYMPHOCYTIC LEUK OF B-CELL TYPE NOT ACHIEVE REMIS SNOMED Code(s): 954912685 (4) Antineoplastic chemotherapy induced anemia Narrative/Plan: Resolving, stable, no intervention Current Visit: Yes Status: Acute Priority: Low Code(s): D64.81 - ANEMIA DUE TO ANTINEOPLASTIC CHEMOTHERAPY; T45.1X5A - ADVERSE EFFECT OF ANTINEOPLASTIC AND IMMUNOSUP DRUGS, INIT SNOMED Code(s): 166278257 (5) Dehydration Narrative/Plan: Pt is now tolerating oral intake much better Current Visit: Yes Status: Acute Priority: High Code(s): E86.0 - DEHYDRATION SNOMED Code(s): 70522520 (6) Generalized weakness Narrative/Plan: Improved, pt independently ambulatory Current Visit: Yes Status: Acute Priority: High Code(s): R53.1 - WEAKNESS SNOMED Code(s): 16560720 (7) Leukocytosis Narrative/Plan: Lymphocytes, secondary to lymphoma Current Visit: Yes Status: Acute Priority: Medium Code(s): D72.829 - ELEVATED WHITE BLOOD CELL COUNT, UNSPECIFIED SNOMED Code(s): 673952550
--- NOTE | 2018-02-10 18:43 | PN ---
PROGRESS NOTE CHIEF COMPLAINT: Re-evaluation. HISTORY OF PRESENT ILLNESS: This is a 77-year-old gentleman who was admitted to the hospital because of generalized weakness. The patient was noted to be neutropenic with no noted neutrophils in the peripheral smear. The patient has received recent chemotherapy for CLL/lymphoma. The patient is feeling better today. He did get some sleep last night. He has had bowel movements without any blood in his stool. He still has some cough and is bringing up some phlegm. He has some rhonchi at the right scapular area on examination. Chest x- ray reveals no evidence of any infiltrates. REVIEW OF SYSTEMS: NEURO: Denies any headaches, dizziness. PSYCH: Some anxiety. Some depression. CARDIAC: Denies chest pain, angina, palpitations. RESPIRATORY: Has shortness of breath. Does have cough. No hemoptysis. GI: No nausea, vomiting, abdominal pain, diarrhea. : No symptoms dysuria or hematuria. EXTREMITIES: No pain. CONSTITUTIONAL: No fever or chills. PHYSICAL EXAMINATION: Pleasant gentleman in no distress. Vital signs revealed temperature 98, pulse 73, respirations 18, blood pressure 115/68, pulse ox 95% on room air. HEENT: Normocephalic. NECK: No JVD. CHEST: Clear to auscultation except for right just below the scapula, the patient has some rhonchi which do clear with cough. CARDIAC: Distant heart sounds S1, S2 with no gallop. Systolic murmur 2/6, left sternal border. ABDOMEN: Protuberant, soft. Bowel sounds present. No palpable masses. Extremities reveal no edema. Neurologically awake, alert, oriented x3 with well-coordinated movements. Lymphadenopathy in the right axilla, which is smaller than previous. Non-palpable left axilla. LABORATORY ASSESSMENT: White count up to 23,700, hemoglobin is 11, neutrophils up to 470. Potassium was 3.3 yesterday. ASSESSMENT: 1. CLL/lymphoma, on treatment. 2. Neutropenia. 3. Dehydration, resolved. 4. Cough. 5. Arthritis, right knee. PLAN: The patient is stable. Continue present medical regimen. Patient's condition discussed with the patient and the oncology nurse practitioner. Patient, if doing well tomorrow, could be potentially discharged. MMODL / IJN: [id number] /
[2018-02-10] MEDS: ATORVASTATIN 20 MG TAB PO SCH (20:35)
[2018-02-10] MEDS: ZOLPIDEM 5 MG TAB PO SCH (20:35)
[2018-02-10] MEDS: ALPRAZolam 0.25 MG TAB PO PRN (21:59)
[2018-02-10 23:04] VITALS: TEMP 97.4
[2018-02-11] MEDS: SODIUM CHLORIDE 0.9% 1,000 ML IV SCH ×2 (04:00→07:41)
[2018-02-11 07:31] VITALS: BP 132/78; PULSE 74; RESP 18
[2018-02-11] MEDS: PIPERACILLIN-TAZOBACTAM 3.375 GM in DEXTROSE/WATER 1 50ML.BAG IVPB SCH (07:41)
--- NOTE | 2018-02-11 08:13 | P.DS ---
Providers Date of admission: 02/08/18 19:24 Expected date of discharge: 02/11/18 Attending physician: Escobar Reaves Consults: 02/08/18 19:23 Consult Physician Stat Consulting Provider: Moiz Hernandez Consult Reason/Comments: Neutropenia, generalized weakness, CLL, she status post chemo Do you want consulting provider notified?: Yes Primary care physician: Escobar Reaves Hospital Course: This 77-year-old gentleman was admitted to the hospital with low-grade fever And Neutropenia after Being Treated for CLL/Lymphoma/Bravo's Syndrome. The Patient Was Complaining Some Abdominal Pain Nausea with Poor Appetite and Appeared Dehydrated. Following Admission Patient Was Hydrated and Placed on Zosyn Pending Cultures. The Patient Has Some Cough with initially some sputum production but none subsequently. He did have a low-grade temperature when he was admitted to the hospital. The patient general condition improved. Patient was also followed by oncology. At the time of discharge he is feeling much better he is eating well, feeling stronger. He is sleeping better. At this point the patient will be discharged home. His neutrophil count yesterday was 475 up from 0. Expected to be better as the days progressed. He is scheduled to undergo further chemotherapy as outpatient. He'll follow with Dr. castillo on the outpatient. Final diagnosis 1. Absolute neutropenia 2. Chronic lymphocytic leukemia 3. Bravo's syndrome 4. Dehydration 5. Hypokalemia 6. Generalized debility 7. Coronary artery disease 8. Atrial fibrillation controlled 9. Aortic stenosis mitral regurgitation 10. Essential hypertension Patient Condition at Discharge: Good Plan - Discharge Summary Discharge Rx Participant: Yes New Discharge Prescriptions: Continue Propafenone [Rythmol] 225 mg PO BID Metoprolol Tartrate [Lopressor] 50 mg PO BID tab Simvastatin [Zocor] 40 mg PO HS amLODIPine [Norvasc] 2.5 mg PO DAILY HYDROcodone/APAP 5-325MG [[place] 5-325] 1 tab PO Q4HR PRN #60 tab PRN Reason: Pain Discharge Medication List Propafenone [Rythmol] 225 mg PO BID 12/04/15 [History] Metoprolol Tartrate [Lopressor] 50 mg PO BID tab 07/24/16 [Rx] Simvastatin [Zocor] 40 mg PO HS 01/23/18 [History] amLODIPine [Norvasc] 2.5 mg PO DAILY 01/23/18 [History] HYDROcodone/APAP 5-325MG [[place] 5-325] 1 tab PO Q4HR PRN #60 tab 01/29/18 [Rx] Follow up Appointment(s)/Referral(s): Escobar Reaves MD [Primary Care Provider] - 1-2 days Activity/Diet/Wound Care/Special Instructions: pt would like med RX
[2018-02-11 08:19] LABS: HCT 31.7 % (39.0-53.0); HGB 10.3 gm/dL (13.0-17.5); MCH 28.7 pg (25.0-35.0); MCHC 32.6 g/dL (31.0-37.0); Mean Platelet Volume 7.5; Platelet Count 161 k/uL (150-450); RBC 3.61 m/uL (4.30-5.90); RDW 14.3 % (11.5-15.5); WBC 23.6 k/uL (3.8-10.6)
[2018-02-11] MEDS: HEPARIN SODIUM,PORCINE 5,000 UNIT/ML 1 ML VIAL SQ SCH (08:57)
[2018-02-11] MEDS: amLODIPine 2.5 MG TAB PO SCH (08:57)
[2018-02-11] MEDS: PROPAFENONE 225 MG TAB PO SCH (08:57)
[2018-02-11] MEDS: METOPROLOL TARTRATE 50 MG TAB PO SCH (08:57)
[2018-02-11] MEDS ORDERED: PANTOPRAZOLE 40 MG TABLET PO SCH (09:00)
[2018-02-11 09:22] LABS: Lymphocytes # (M) 20.06 k/uL (1.0-4.8); Monocytes # (M) 0.71 k/uL (0-1.0); Neutrophils # (M) 2.83 k/uL (1.3-7.7); Neutrophils % (M) 12 %; Nucleated Red Blood Cells 0 /100 WBC (0-0); Total Cells Counted 100
== END 2018-02-11 11:00 | disposition home or self-care (01) | DRG 809 ==
LOC: EC 15:51 → 5ONC 19:24 → 5MS5E 02-10 23:20 → 5ONC 02-10 23:20
PROVIDERS: ADMIT Internal Medicine; ATTEND Internal Medicine
DX: D70.1 Agranulocytosis secondary to cancer chemotherapy (principal); C91.10 Chronic lymphocytic leukemia of B-cell type not having achieved remission; I48.0 Paroxysmal atrial fibrillation; E86.0 Dehydration; D64.81 Anemia due to antineoplastic chemotherapy; E87.6 Hypokalemia; E78.5 Hyperlipidemia, unspecified; I08.0 Rheumatic disorders of both mitral and aortic valves; F41.9 Anxiety disorder, unspecified; I10 Essential (primary) hypertension; I25.10 Atherosclerotic heart disease of native coronary artery without angina pectoris; M17.11 Unilateral primary osteoarthritis, right knee; R53.1 Weakness; R63.0 Anorexia; R50.81 Fever presenting with conditions classified elsewhere; T45.1X5A Adverse effect of antineoplastic and immunosuppressive drugs, initial encounter; Z82.49 Family history of ischemic heart disease and other diseases of the circulatory system; Z87.19 Personal history of other diseases of the digestive system; Z90.89 Acquired absence of other organs; I25.2 Old myocardial infarction; Z87.01 Personal history of pneumonia (recurrent); Z85.828 Personal history of other malignant neoplasm of skin; Z86.19 Personal history of other infectious and parasitic diseases; Z98.41 Cataract extraction status, right eye; Z98.42 Cataract extraction status, left eye; Z87.891 Personal history of nicotine dependence; Z79.899 Other long term (current) drug therapy; Z79.891 Long term (current) use of opiate analgesic; Z95.828 Presence of other vascular implants and grafts
CPT/HCPCS: 36415; 71046; 74018; 80048; 80053; 81001; 82150; 83605; 83690; 84484; 85025; 87040; 87070; 87077; 87086; 87186; 87205; 94760; 96365; 96366; 99285

== ENCOUNTER → 2018-03-25 | Outpatient (CLI) | payer MEDICARE, BC ==
[2018-03-25 12:56] LABS: Blood Urea Nitrogen 9 mg/dL (9-20)
--- NOTE | 2018-03-25 14:48 | CT ---
EXAMINATION TYPE: CT ChestAbdPelvis w con DATE OF EXAM: 03/25/2018 COMPARISON: Prior CT abdomen pelvis 01/27/[address] chest 07/19/2016 HISTORY: Follow up scan per patient. CT DLP: 2111 mGycm Automated exposure control for dose reduction was used. CONTRAST: CT scan of the chest, abdomen and pelvis is performed with Oral Contrast and with IV Contrast, patien t injected with 100 mL of Isovue 300. FINDINGS: Bilateral axillary adenopathy is present and again noted. LUNGS: There is some subpleural nodularity seen in the right lower lobe which may be postinflammatory . Pleural effusions have resolved. No pericardial effusion. Coronary artery calcifications are presen t. There is no pleural effusion or pneumothorax seen. The tracheobronchial tree is patent. MEDIASTINUM: Mediastinal nodes have diminished somewhat in size as compared to previous CT. Left-side d PICC line is in place, distal tip is coursing through the superior vena cava. Hilar nodes have decr eased in size in the interval. AORTA: No significant abnormality is seen. OTHER: There is extensive retroperitoneal adenopathy present as well as abdominal mesenteric adenopa thy similar to prior exam. Some interval decrease in tumor burden is noted. LIVER/GB: No significant abnormality is appreciated. PANCREAS: No significant abnormality is seen. SPLEEN: No significant abnormality is seen. ADRENALS: No significant abnormality is seen. KIDNEYS: No significant abnormality is seen. REPRODUCTIVE ORGANS: Stable prostatic enlargement. BOWEL: No significant abnormality is seen. FREE AIR: No Free Air visible. ASCITES: None seen. URINARY BLADDER: Stable PELVIC ADENOPATHY: None visualized. OSSEOUS STRUCTURES: No significant abnormality is seen. IMPRESSION: There is some improvement in adenopathy as compared to prior exam as well as resolution o f patient's bilateral pleural effusions.
== END ==
LOC: RADPROMAIN 12:25
PROVIDERS: ATTEND Internal Medicine Hematology & Oncology
DX: C91.10 Chronic lymphocytic leukemia of B-cell type not having achieved remission (principal)
CPT/HCPCS: 82565; 84520; 71260; 74177; Q9967

== ENCOUNTER → 2018-04-02 | Outpatient (CLI) | payer MEDICARE, BC ==
--- NOTE | 2018-04-05 08:42 | PE ---
EXAMINATION TYPE: PET CT fusion skull to thigh DATE OF EXAM: 04/02/2018 CLINICAL HISTORY: CLL or chronic lymphocytic leukemia initial study diagnosed 25 years ago after havi ng chemotherapy completed March 2011. TECHNIQUE: Following the intravenous administration of 15.415 mCi of F-18 FDG, whole body images ar e performed from the skull base to the midthigh. Images are reviewed on the computer in the coronal, axial, and sagittal planes. Reconstructed rotating images are created on independent workstation an d reviewed on the computer. A non-contrast CT is performed in conjunction with the PET scan. COMPARISON: CT chest abdomen and pelvis March 25, [address] studies including CT abdomen and pe lvis March 25, 2018 and CTA chest March 18, 2016. Initial study. FINDINGS: Mediastinum mean SUV: 1.21 Liver mean SUV: 2.3 SKULL BASE AND NECK: Single focus abnormal hypermetabolic uptake right maxillary incisor level may c orrespond to dental cavity, correlate clinically on axial image 27, max SUV is 7.14. No additional areas of abnormal hypermetabolic uptake are seen. There is abnormal bilateral neck adenopathy with enlarged lymph nodes seen bilaterally most prominent in the posterior cervical triangles but involvement anteriorly as well as supraclavicular region is noted bilaterally. CHEST, MEDIASTINUM, AND HILAR REGION: There is right lateral basilar nodular consolidation measuring 1.6 x 0.6 cm axial image 93, faint hypermetabolic uptake is present. Favor postinflammatory. No additional areas of suspicious areas of abnormal hypermetabolic uptake are identified. There are abnormal enlarged thoracic and bilateral hilar and axillary lymph nodes redemonstrated whic h have been present back through CTA chest July 19, 2016 but do not show suspicious hypermetabol ic uptake. There felt diminished in size. For reference inferior anterior left axillary or midthoraci c lymph node measures 2.5 x 1.7 cm axial image 70 and measures 3.4 x 1.9 cm prior study axial image 7 2. For reference anterior mediastinal lymph node measures 1.2 x 0.9 cm axial image 72 versus 2.2 x 1. 4 cm prior study image 67. ABDOMEN AND PELVIS: No suspicious areas of increased hypermetabolic uptake are identified. There is p ersistent confluent retroperitoneal and mesenteric adenopathy surrounding the aorta and central abdom en with mass effect on bowel loops. There is confluent adenopathy that is not significantly changed i n appearance from older CTs. There are abnormal lymph nodes and along the iliac chains vessels in the pelvis redemonstrated. There are subcentimeter bilateral groin lymph nodes. OSSEOUS STRUCTURES: No suspicious increased hypermetabolic uptake is seen. OTHER CT: There is moderate calcified plaque bilateral carotid bulbs. There is left-sided PICC line terminating in SVC. There is severe three-vessel coronary artery calcification which is noted marker for coronary artery disease. Cortical thinning in both kidneys is present. There are diverticula throughout the colon most prominent in the sigmoid colon. There is moderate to severe calcified plaque of aorta extending into transverse vessels. There is facet arthropathy lower lumbar levels. There is multilevel spurring in the thoracic spine. T here is uncovertebral facet degenerative changes in the cervical spine. IMPRESSION: PET CT findings favor persistent treated or indolent lymphoma, no convincing evidence for recurrence or active disease.
== END | disposition home or self-care (01) ==
LOC: RADPETMAIN 14:56
PROVIDERS: ATTEND Internal Medicine Hematology & Oncology
DX: C91.10 Chronic lymphocytic leukemia of B-cell type not having achieved remission (principal)
CPT/HCPCS: 78815; A9552

== ENCOUNTER → 2018-05-10 | Outpatient (CLI) | payer MEDICARE, BC ==
[2018-05-10 11:49] LABS: Blood Urea Nitrogen 9 mg/dL (9-20)
== END | disposition home or self-care (01) ==
LOC: LABWHC1 10:56
PROVIDERS: ATTEND Ophthalmology
DX: G45.9 Transient cerebral ischemic attack, unspecified (principal); G52.9 Cranial nerve disorder, unspecified; H49.02 Third [oculomotor] nerve palsy, left eye
CPT/HCPCS: 36415; 82565; 84520

== ENCOUNTER → 2018-06-07 | Outpatient (CLI) | payer MEDICARE, BC ==
--- NOTE | 2018-06-07 15:28 | CT ---
EXAMINATION TYPE: CT ChestAbdPelvis w con DATE OF EXAM: 06/07/2018 INDICATION: Follow up on leukemia, chronic leukemia COMPARISON: 03/25/2018 CT DLP: 1075.10 mGycm CONTRAST: Performed with Oral Contrast and with IV Contrast, patient injected with 100 mL of Isovue 300. TECHNIQUE: Axial images at 5 mm thick sections. Reconstructed images in the coronal plane. Delayed images through the kidneys. FINDINGS: CT CHEST: There are multiple enlarged bilateral axillary lymph nodes. Supraclavicular adenopathy is a lso prominent. Example enlarged lymph nodes within the left axillary measuring 2.2 cm, series 3 image 9. No lymphadenopathy appears larger on the current examination with comparison measurements. There is an enlarged pretracheal lymph node. Multiple additional lymph nodes are present within the p retracheal space and aortopulmonic window these were present previously and may be slightly enlarged over the interval. Enlarged hilar adenopathy is not identified. Coronary artery calcifications presen t. Portion of the thyroid visualized is normal. Minimal streak opacities in the posterior lateral right midlung this is an interval finding The ascending aorta diameter at the level of the main pulmonary artery is 3.4 cm. The main pulmonary artery diameter at the bifurcation is 3.[address] ABDOMEN: Extensive adenopathy is matted in the periaortic region. This is similar appearance nickie rison. Iliac chain lymphadenopathy is also present. Liver: Normal Spleen: Normal Pancreas: Normal Adrenal glands: The adrenal glands are normal. Gallbladder: Gallstones are present. Kidneys: No masses are evident. No hydronephrosis is present. There is an exophytic cyst on the pos terior right upper kidney measuring 2.7 cm 16 Hounsfield units. Delayed images were obtained through the kidneys, which remain unremarkable. Aorta: Vascular calcification is within the aorta. Inferior vena cava: Normal. CT PELVIS: Loops of bowel within the abdomen and pelvis are normal. There are loops of bowel which are incom pletely distended or lack oral contrast limiting their evaluation. Appendix: Normal as visualized. Urinary bladder: Prostate is impression on the inferior aspect of the urinary bladder. Genitourinary structures: Prostate is prominent. Osseous structures: There is a sclerotic area along the anterior column of the left acetabulum. IMPRESSIONS: 1. Enlarging size bilateral axillary and mediastinal lymphadenopathy. 2. Confluent matted adenopathy within the abdomen with iliac chain extension.
== END | disposition home or self-care (01) ==
LOC: RADPROMAIN 12:42
PROVIDERS: ATTEND Internal Medicine Hematology & Oncology
DX: Z03.89 Encounter for observation for other suspected diseases and conditions ruled out (principal); R59.1 Generalized enlarged lymph nodes; R59.0 Localized enlarged lymph nodes; C91.10 Chronic lymphocytic leukemia of B-cell type not having achieved remission
CPT/HCPCS: 82565; 84520; 71260; 74177; 36415; Q9967

== ENCOUNTER 2018-06-13 10:29 | Inpatient (IN) | payer MEDICARE, BC ==
[2018-06-13] MEDS ORDERED: ONDANSETRON 4 MG/2 ML VIAL IVP STA (12:52)
[2018-06-13] MEDS ORDERED: SODIUM CHLORIDE 0.9% 1,000 ML IV STA ×2 (12:52→15:15)
[2018-06-13 13:04] LABS: ALT 22 U/L (21-72); AST 25 U/L (17-59); Albumin 3.7 g/dL (3.5-5.0); Alkaline Phosphatase 103 U/L (38-126); Amylase <30 U/L (30-110); Anion Gap 14 mmol/L; Blood Urea Nitrogen 20 mg/dL (9-20); Calcium 9.5 mg/dL (8.4-10.2); Carbon Dioxide 25 mmol/L (22-30); Chloride 97 mmol/L (98-107); Glucose 130 mg/dL (74-99); Lipase 27 U/L (23-300); Sodium 136 mmol/L (137-145); Total Bilirubin 1.6 mg/dL (0.2-1.3); Total Protein 5.7 g/dL (6.3-8.2)
--- NOTE | 2018-06-13 13:05 | ED ---
General Adult HPI - General Chief complaint: Abdominal Pain Stated complaint: Diarrhea/coughing/sob/weak Time Seen by Provider: 06/13/18 12:37 Source: patient, RN notes reviewed Mode of arrival: wheelchair Limitations: no limitations - History of Present Illness Initial comments: Patient is an 78-year-old male with significant past medical history for CLL, emergency room to complaint of increased nausea, diarrhea over the last 2 days. Patient does admit that he's also had some congestion in his chest. Patient states possibly have a fever at home. Patient does admit that he took his last dose of chemo approximately 1 month ago. Patient does admit to some lower abdominal pain that comes and goes. Currently rates as 04/17. Denies any other complaints or symptoms currently. Patient denies any recent shortness of breath , chest pain, back pain, dysuria or hematuria, headaches or visual changes, or any other complaints. - Related Data Home Medications Medication Instructions Recorded Confirmed Propafenone [Rythmol] 225 mg PO BID 12/04/15 06/13/18 Simvastatin [Zocor] 40 mg PO HS 01/23/18 06/13/18 amLODIPine [Norvasc] 2.5 mg PO DAILY 01/23/18 06/13/18 Previous Rx's Medication Instructions Recorded Metoprolol Tartrate [Lopressor] 50 mg PO BID tab 07/24/16 Allergies Allergy/AdvReac Type Severity Reaction Status Date / Time No Known Allergies Allergy Verified 06/13/18 12:33 Review of Systems ROS Statement: Those systems with pertinent positive or pertinent negative responses have been documented in the HPI. ROS Other: All systems not noted in ROS Statement are negative. Past Medical History Past Medical History: Atrial Fibrillation, Cancer, Hyperlipidemia, Hypertension , Myocardial Infarction ([place]), Pneumonia Additional Past Medical History / Comment(s): arrhythmia, chronic lymphocytic leukemia pt stated had chem on 02-01-18/02-02-18 and 02-03-18 , inguinal hernia, hx skin cancer, nstemi 07-12-16 per summary-pt not aware of this. had shigelles vaccine 2011 and in 2012 got a case of the shingelles. 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 Last Myocardial Infarction Date:: 1997 History of Any Multi-Drug Resistant Organisms: None Reported Past Surgical History: Hernia Repair, Orthopedic Surgery, Tonsillectomy Additional Past Surgical History / Comment(s): bilateral rotator cuffs, cataracts, umb hernia repair, rt axilla lymph node bx.colonscopy Past Anesthesia/Blood Transfusion Reactions: No Reported Reaction Additional Past Anesthesia/Blood Transfusion Reaction / Comment(s): clausterphobia. had blood transfusion- no reaction Past Psychological History: No Psychological Hx Reported Smoking Status: Former smoker Past Alcohol Use History: None Reported Past Drug Use History: None Reported - Past Family History Mother Family Medical History: No Reported History Additional Family Medical History / Comment(s): pt stated his mom was healthy never went to the . dropped at age 70 Father Family Medical History: Congestive Heart Failure (CHF), Myocardial Infarction ( [place]), Vascular Disorder Additional Family Medical History / Comment(s): at age 75. hx heavy smoker General Exam - General Exam Comments Initial Comments: General: The patient is awake and alert, in no distress. Eye: Pupils are equal, round and reactive to light, extra-ocular movements are intact. No nystagmus. There is normal conjunctiva bilaterally. No signs of icterus. Ears, nose, mouth and throat: There are moist mucous membranes and no oral lesions. Neck: The neck is supple, there is no tenderness or JVD. Cardiovascular: There is a regular rate and rhythm. No murmur, rub or gallop is appreciated. Respiratory: Lungs are clear to auscultation, respirations are non-labored, breath sounds are equal. No wheezes, stridor, rales, or rhonchi. Gastrointestinal: Soft, non-distended, non-tender abdomen without masses or organomegaly noted. There is no rebound or guarding present. No CVA tenderness. Musculoskeletal: Normal ROM, no tenderness. Strength 5/5. Sensation intact. Pulses equal bilaterally 2+. Neurological: A&O x 3. CN II-XII intact, There are no obvious motor or sensory deficits. Coordination appears grossly intact. Speech is normal. Skin: Skin is warm and dry and no rashes or lesions are noted. Psychiatric: Cooperative, appropriate mood & affect, normal judgment. Limitations: no limitations Course Vital Signs 06/13/18 06/13/18 06/13/18 10:41 13:04 14:47 Temperature 99.0 F 102.8 F H Pulse Rate 90 125 H Respiratory 20 20 Rate Blood Pressure 104/65 142/61 O2 Sat by Pulse 94 L 93 L Oximetry 06/13/18 15:25 Temperature Pulse Rate 129 H Respiratory 24 Rate Blood Pressure 123/59 O2 Sat by Pulse 95 Oximetry - Reevaluation(s) Reevaluation #1: 06/13/18 14:47 Patient's an persistent tachycardia in the emergency room was given a liter bolus. Does admit that he's had decreased appetite with increased diarrhea. Patient's temperature rechecked was 102.8 degrees Fahrenheit. Please return for sepsis at this time. Patient does have a white count that has been added. Chest x-ray shows possible infiltrate. Patient will be started on antibiotics 06/13/18 15:16 Patient's lactic acid was 3.8. Patient reexamined is resting comfortably in bed. Patient did have a temperature 102.8 was given Tylenol here in the emergency room. Patient's tachycardic. Was given a liter bolus to start with will be continued on IV fluids has blood pressure is stable. Patient has been started on antibiotics. Patient will be admitted with consult to oncology. Medical Decision Making - Lab Data Result diagrams: 06/13/18 12:42 06/13/18 12:42 Lab Results 06/13/18 06/13/18 06/13/18 Range/Units 12:42 12:42 12:42 WBC 29.1 H* (3.8-10.6) k/uL RBC 3.86 L (4.30-5.90) m/uL Hgb 11.7 L (13.0-17.5) gm/dL Hct 36.3 L (39.0-53.0) % MCV 94.0 (80.0-100.0) fL MCH 30.3 (25.0-35.0) pg MCHC 32.2 (31.0-37.0) g/dL RDW 14.3 (11.5-15.5) % Plt Count 230 (150-450) k/uL Neutrophils % 86 % Lymphocytes % 10 % Monocytes % 2 % Eosinophils % 0 % Basophils % 0 % Neutrophils # 25.1 H (1.3-7.7) k/uL Lymphocytes # 2.9 (1.0-4.8) k/uL Monocytes # 0.6 (0-1.0) k/uL Eosinophils # 0.0 (0-0.7) k/uL Basophils # 0.1 (0-0.2) k/uL PT (9.0-12.0) sec INR (<1.2) APTT (22.0-30.0) sec Sodium 136 L (137-145) mmol/L Potassium 4.0 (3.5-5.1) mmol/L Chloride 97 L (98-107) mmol/L Carbon Dioxide 25 (22-30) mmol/L Anion Gap 14 mmol/L BUN 20 (9-20) mg/dL Creatinine 0.98 (0.66-1.25) mg/dL Est GFR (CKD-EPI)AfAm 85 (>60 ml/min/1.73 sqM) Est GFR (CKD-EPI)NonAf 73 (>60 ml/min/1.73 sqM) Glucose 130 H (74-99) mg/dL Plasma Lactic Acid Ovidio (0.7-2.0) mmol/L Calcium 9.5 (8.4-10.2) mg/dL Total Bilirubin 1.6 H (0.2-1.3) mg/dL AST 25 (17-59) U/L ALT 22 (21-72) U/L Alkaline Phosphatase 103 (38-126) U/L Total Creatine Kinase <20 L (55-170) U/L CK-MB (CK-2) 0.2 (0.0-2.4) ng/mL CK-MB (CK-2) Rel Index Troponin I <0.012 (0.000-0.034) ng/mL Total Protein 5.7 L (6.3-8.2) g/dL Albumin 3.7 (3.5-5.0) g/dL Amylase <30 L (30-110) U/L Lipase 27 (23-300) U/L Urine Color Urine Appearance (Clear) Urine pH (5.0-8.0) Ur Specific [place] (1.001-1.035) Urine Protein (Negative) Urine Glucose (UA) (Negative) Urine Ketones (Negative) Urine Blood (Negative) Urine Nitrite (Negative) Urine Bilirubin (Negative) Urine Urobilinogen (<2.0) mg/dL Ur Leukocyte Esterase (Negative) Urine RBC (0-5) /hpf Urine WBC (0-5) /hpf Hyaline Casts (0-2) /lpf Urine Mucus (None) /hpf 06/13/18 06/13/18 06/13/18 Range/Units 12:42 12:42 13:04 WBC (3.8-10.6) k/uL RBC (4.30-5.90) m/uL Hgb (13.0-17.5) gm/dL Hct (39.0-53.0) % MCV (80.0-100.0) fL MCH (25.0-35.0) pg MCHC (31.0-37.0) g/dL RDW (11.5-15.5) % Plt Count (150-450) k/uL Neutrophils % % Lymphocytes % % Monocytes % % Eosinophils % % Basophils % % Neutrophils # (1.3-7.7) k/uL Lymphocytes # (1.0-4.8) k/uL Monocytes # (0-1.0) k/uL Eosinophils # (0-0.7) k/uL Basophils # (0-0.2) k/uL PT 10.7 (9.0-12.0) sec INR 1.1 (<1.2) APTT 25.4 (22.0-30.0) sec Sodium (137-145) mmol/L Potassium (3.5-5.1) mmol/L Chloride (98-107) mmol/L Carbon Dioxide (22-30) mmol/L Anion Gap mmol/L BUN (9-20) mg/dL Creatinine (0.66-1.25) mg/dL Est GFR (CKD-EPI)AfAm (>60 ml/min/1.73 sqM) Est GFR (CKD-EPI)NonAf (>60 ml/min/1.73 sqM) Glucose (74-99) mg/dL Plasma Lactic Acid Ovidio 3.7 H* (0.7-2.0) mmol/L Calcium (8.4-10.2) mg/dL Total Bilirubin (0.2-1.3) mg/dL AST (17-59) U/L ALT (21-72) U/L Alkaline Phosphatase (38-126) U/L Total Creatine Kinase (55-170) U/L CK-MB (CK-2) (0.0-2.4) ng/mL CK-MB (CK-2) Rel Index Troponin I (0.000-0.034) ng/mL Total Protein (6.3-8.2) g/dL Albumin (3.5-5.0) g/dL Amylase (30-110) U/L Lipase (23-300) U/L Urine Color Yellow Urine Appearance Cloudy (Clear) Urine pH 5.5 (5.0-8.0) Ur Specific [place] 1.019 (1.001-1.035) Urine Protein 2+ H (Negative) Urine Glucose (UA) Negative (Negative) Urine Ketones Trace H (Negative) Urine Blood Trace H (Negative) Urine Nitrite Negative (Negative) Urine Bilirubin Negative (Negative) Urine Urobilinogen <2.0 (<2.0) mg/dL Ur Leukocyte Esterase Negative (Negative) Urine RBC <1 (0-5) /hpf Urine WBC 1 (0-5) /hpf Hyaline Casts 2 (0-2) /lpf Urine Mucus Moderate H (None) /hpf Disposition Clinical Impression: CAP (community acquired pneumonia), Sepsis Disposition: ADMITTED IP TO THIS HOSP Condition: Stable Is patient prescribed a controlled substance at d/c from ED?: No Referrals: Escobar Reaves MD [Primary Care Provider] - 1-2 days Time of Disposition: 15:40
[2018-06-13 13:12] LABS: Basophils # (A) 0.1 k/uL (0-0.2); Basophils % (A) 0 %; Eosinophils % (A) 0 %; HCT 36.3 % (39.0-53.0); HGB 11.7 gm/dL (13.0-17.5); Lymphocytes # (A) 2.9 k/uL (1.0-4.8); Lymphocytes % (A) 10 %; MCH 30.3 pg (25.0-35.0); MCHC 32.2 g/dL (31.0-37.0); Monocytes # (A) 0.6 k/uL (0-1.0); Monocytes % (A) 2 %; Neutrophils # (A) 25.1 k/uL (1.3-7.7); Neutrophils % (A) 86 %; Platelet Count 230 k/uL (150-450); RBC 3.86 m/uL (4.30-5.90); RDW 14.3 % (11.5-15.5)
[2018-06-13 13:18] LABS: Creatine Kinase <20 U/L (55-170)
[2018-06-13 13:22] LABS: WBC 29.1 k/uL (3.8-10.6)
[2018-06-13 13:24] LABS: INR 1.1 (<1.2); Partial Thromboplastin Time 25.4 sec (22.0-30.0); Prothrombin Time 10.7 sec (9.0-12.0)
[2018-06-13 13:26] LABS: Appearance,Urine Cloudy (Clear); Bilirubin,Urine Negative (Negative); Blood,Urine Trace (Negative); Color,Urine Yellow; Glucose,Urine (UA) Negative (Negative); Hyaline Casts,Urine 2 /lpf (0-2); Ketones,Urine Trace (Negative); Leukocyte Esterase,Urine Negative (Negative); Mucus,Urine Moderate /hpf; Nitrite,Urine Negative (Negative); PH, Urine 5.5 (5.0-8.0); Protein,Urine 2+ (Negative); RBC,Urine <1 /hpf (0-5); Specific Gravity,Urine 1.019 (1.001-1.035); Urobilinogen,Urine <2.0 mg/dL (<2.0); WBC,Urine 1 /hpf (0-5)
[2018-06-13 13:30] LABS: Creatine Kinase MB 0.2 ng/mL (0.0-2.4); Troponin I <0.012 ng/mL (0.000-0.034)
--- NOTE | 2018-06-13 13:45 | XR ---
EXAMINATION TYPE: XR chest 2V DATE OF EXAM: 06/13/2018 COMPARISON: 02/10/2018 HISTORY: Dizziness and abdominal pain TECHNIQUE: Frontal and lateral views of the chest are obtained. FINDINGS: There is no focal air space opacity, pleural effusion, or pneumothorax seen. There is chr onic eventration of the right hemidiaphragm and left basilar pleural-parenchymal scarring versus guitar instructor madhu atelectasis. Pulmonary hyperinflation and flattening of the diaphragms with biapical lucency agai n represent underlying COPD. Left basilar peribronchial cuffing on the lateral image may represent re active or inflammatory airway disease. The cardiac silhouette size is mildly enlarged. Diffuse osseou s demineralization is present. IMPRESSION: 1. Left basilar peribronchial cuffing in combination with relative COPD suggests reactive or infectio us infiltrate airway disease. 2. Chronic left basilar atelectasis or pleural parenchymal scarring.
[2018-06-13] MEDS ORDERED: ACETAMINOPHEN TAB 500 MG TAB PO STA (14:46)
[2018-06-13] MEDS ORDERED: PIPERACILLIN-TAZOBACTAM 3.375 GM in DEXTROSE/WATER 1 50ML.BAG IVPB STA (14:49)
[2018-06-13] MEDS ORDERED: cefTRIAXone 2,000 MG in SODIUM CHLORIDE 0.9% 100 ML IVPB STA (14:50)
[2018-06-13] MEDS ORDERED: cefTRIAXone IN SWFI 1,000 MG/10 ML SYRINGE IVP STA (14:50)
[2018-06-13] MEDS ORDERED: cefTRIAXone IN SWFI 2,000 MG/20 ML SYRINGE IVP STA (14:56)
[2018-06-13] MEDS ORDERED: ACETAMINOPHEN TAB 325 MG TAB PO PRN (15:43)
[2018-06-13] MEDS ORDERED: LORazepam 2 MG/ML INJ IV PRN (15:43)
[2018-06-13] MEDS ORDERED: ONDANSETRON 4 MG/2 ML VIAL IVP PRN (15:43)
[2018-06-13] MEDS ORDERED: MORPHINE SULFATE 4 MG/ML SYRINGE IV PRN (15:43)
[2018-06-13] MEDS ORDERED: NALOXONE 0.4 MG/ML 1 ML VIAL IV PRN (15:43)
[2018-06-13] MEDS ORDERED: LEVOFLOXACIN 500MG-D5W PMX 500 MG in DEXTROSE/WATER 1 100ML.BAG IVPB STA (16:50)
[2018-06-13] MEDS: PROPAFENONE 225 MG TAB PO SCH (18:20)
[2018-06-13] MEDS: METOPROLOL TARTRATE 50 MG TAB PO SCH (18:20)
--- NOTE | 2018-06-13 22:56 | HP ---
HISTORY AND PHYSICAL ATTENDING PHYSICIAN: Dr. Slim Reaves. CHIEF COMPLAINT: Re-evaluation. HISTORY OF PRESENT ILLNESS: This is an 78-year-old who was admitted to the hospital with a fever and feeling poorly. The patient has a history of chronic lymphocytic leukemia and is on chemotherapy. The patient for the past few days has been feeling poorly. He decided to come to the emergency room today because he had an episode of diarrhea. The patient in the ER was noted to be febrile. The patient did not realize he has been running a fever. His temperature was 102.8. The patient had a heart rate of 129, respirations 24, pulse ox 95% on 2 L. The patient is feeling and looking better at present. He was given IV fluids and treated for the fever. The patient has a mild cough otherwise and had an episode of diarrhea, but otherwise denies any other symptoms of abdominal pain, chest pain, shortness of breath. The patient at the time of admission also noted to be in atrial fibrillation with rapid rate. The patient has not taken his medications of Rythmol and metoprolol today. The patient received chemotherapy about 2 weeks ago. The patient has what appears to be lymphoma. The details of chemotherapy is not available to me. 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 The patient also has a history of atrial fibrillation, paroxysmal, history of coronary artery disease, stable and history of hypertension. He also has degenerative arthritis, right knee. Otherwise, no history of any liver disease, kidney disease, ulcers, TB, hepatitis. No history of any rheumatic fever, myocardial infarction or CVA. PAST SURGICAL HISTORY: Significant for hernia repair, tonsillectomy, cataract surgery. PERSONAL HISTORY: Nonsmoker. No alcohol. FAMILY MEDICAL HISTORY: One son in good health. One brother with history of coronary artery disease. Mother had congestive heart failure. SOCIAL HISTORY: Patient and lives with spouse. REVIEW OF SYSTEMS: NEURO: Denies any headaches, dizziness, double vision, has decreased vision left eye. Was told a possible stroke to the left eye by an hvac service manager recently. The patient denies any seizures, syncope. PSYCH: Some anxiety. CARDIAC: Dizziness, chest pain, angina, palpitation. RESPIRATORY: Shortness of breath. Does have some cough. No hemoptysis. GI: No nausea, vomiting, abdominal pain. Did have diarrhea today. Poor appetite. : No symptoms of dysuria or hematuria. EXTREMITIES: Denies pain, edema. CONSTITUTIONAL: No fever or chills. Does have some malaise. The patient has lost some weight. SKIN: No rashes. PHYSICAL EXAMINATION: Pleasant gentleman at present. No distress. Vital signs revealed temperature 97.5, pulse 83, respirations 16, blood pressure 104/52, pulse ox 91% on room air. HEENT: Normocephalic. NECK: No JVD. CHEST: Clear to auscultation. Cough with tubular breathing at the left base vertebral area. Lung mathur otherwise clear. CARDIAC: Normal S1, S2 with no gallops. Systolic murmur 2/6. Irregularly, irregular rhythm. Systolic murmur 2/6 at left sternal border. ABDOMEN: Soft. No palpable masses. Bowel sounds normal. No organomegaly. No abdominal bruits. Extremities reveal no edema. Good pulses upper extremities. Decreased pedal pulses. Musculoskeletal reveals decreased muscle mass, generalized. No lymphadenopathy appreciated. ASSESSMENT: 1. Fever, possible left lower lobe pneumonia. 2. Chronic lymphocytic leukemia. 3. History of atrial fibrillation, rapid ventricular rate. 4. History of coronary artery disease. PLAN: Continue present medical regimen. Patient's condition discussed with the patient. Patient has been started on Levaquin and hydration. Oncology to follow up with the patient. Meanwhile increase hydration. LABS: White count 29.1, platelets 213,000, hemoglobin 11.7, INR and PTT are normal. Sodium 136, potassium 4, chloride 97, CO2 content 25, GFR 73, glucose 130, lactic acid 3.7, bilirubin 1.6. Negative troponins. Amylase and lipase normal. Urinalysis is unremarkable. Chest x-ray reveals left basilar peribronchial cuffing with COPD changes suggestive of infection and left base pleural parenchymal scarring. MEDICATION: At home include Norvasc 2.5 mg daily, Zocor 40, he takes 40 mg half tablet daily, Rythmol 225 mg b.i.d., and metoprolol 50 mg b.i.d. The patient's tubular breathing in the left paravertebral area posteriorly. PLAN: Continue present medical regimen. MMODL / IJN: [id number] /
[2018-06-14] MEDS ORDERED: PIPERACILLIN-TAZOBACTAM 3.375 GM in DEXTROSE/WATER 1 50ML.BAG IVPB SCH
[2018-06-14 07:51] LABS: ALT 33 U/L (21-72); AST 32 U/L (17-59); Albumin 2.7 g/dL (3.5-5.0); Alkaline Phosphatase 71 U/L (38-126); Anion Gap 9 mmol/L; Blood Urea Nitrogen 21 mg/dL (9-20); Calcium 8.6 mg/dL (8.4-10.2); Carbon Dioxide 25 mmol/L (22-30); Chloride 103 mmol/L (98-107); Glucose 92 mg/dL (74-99); Potassium 3.6 mmol/L (3.5-5.1); Sodium 137 mmol/L (137-145); Total Bilirubin 0.9 mg/dL (0.2-1.3); Total Protein 4.4 g/dL (6.3-8.2)
[2018-06-14 07:58] LABS: Basophils % (A) 0 %; Eosinophils % (A) 0 %; HCT 27.8 % (39.0-53.0); Lymphocytes # (A) 1.4 k/uL (1.0-4.8); Lymphocytes % (A) 8 %; MCH 30.3 pg (25.0-35.0); MCHC 32.3 g/dL (31.0-37.0); MCV 93.9 fL (80.0-100.0); Mean Platelet Volume 7.2; Monocytes # (A) 0.5 k/uL (0-1.0); Monocytes % (A) 3 %; Neutrophils # (A) 15.3 k/uL (1.3-7.7); Neutrophils % (A) 88 %; Platelet Count 170 k/uL (150-450); RBC 2.96 m/uL (4.30-5.90); RDW 14.4 % (11.5-15.5); WBC 17.4 k/uL (3.8-10.6)
[2018-06-14] MEDS ORDERED: cefTRIAXone IN SWFI 1,000 MG/10 ML SYRINGE IVP SCH (09:00)
[2018-06-14] MEDS: PROPAFENONE 225 MG TAB PO SCH ×2 (09:41→21:56)
[2018-06-14] MEDS: METOPROLOL TARTRATE 50 MG TAB PO SCH ×2 (09:41→21:17)
[2018-06-14] MEDS: SODIUM CHLORIDE 0.9% 1,000 ML IV SCH (09:43)
[2018-06-14 11:12] VITALS: BMI 24.3
--- NOTE | 2018-06-14 15:21 | P.CONS ---
History of Present Illness - Reason for Consult Consult date: 06/14/18 CLL Requesting physician: Armando Vargas - Chief Complaint Fevers, Nausea, Vomiting - History of Present Illness Malignancy History: Pt was diagnosed with stage 0 CLL in 2003, observation only until 06/16, WBC increased and platelets decreased, he had palpable adenopathy. He was treated with bendamustine and rituxan x 4 cycles and then monitoring. He has required intermittent treatment for thrombocytopenia with high dose decadron. He continued on follow up and in early 2013 he had a bone marrow aspiration and biopsy done for persistent leukopenia, this showed CLL, as expected but, no new findings. He was treated with Rituxan x 4 and went back to monitoring. In 10/21 plt fell and he had lymphadenopathy again, he received treatment with Rituxan and dexamethasone, counts normalized and nodes diminished. 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 He was treated with Rituxan and bendeka for 6 cycles completed 12/25. He did well until he started having abd distension, bloating and back pain in mid January 2018. Colon and EGD were done to ensure no other pathophysiology, those exams did not yield a pathology for pt symptoms so, progressive CLL was determined to be the cause and pt has resumed treatment for the same. Mr Lee is a 78 year old patient known to our practice for treatment and monitoring of his known CLL. He was originally diagnosed with stage "0" disease in 2003 and followed on observation until 2008. He required 4 treatments of Bendamustine and Rituxan in for an incresing WBC count and lowering platelet count. He has required high dose steroid treatments through the years for episodes of thrombocytopenia (2010 , 12/2011, 07/2012). In 2013, after episode of cough and sinusitis he developed a persistent leukopenia. A bone marrow biopsy was done, confirming the expected findings of CLL. Rituxan weekly x4 treatments was administered. In 2015, he presented with positive B symptoms and new axillary adenopathy. He received six treatements of Bendeka and Rituxan (completing in 12/2016). Recently he was admitted to [facility] January 2018 with abdominal distention and back pain. New and increased Lymphadenopathy was suggestive of recurrent CLL, concern for a possible Bravo's transformation presentation. He was started on CEOP with Neulasta and completed 05/20/18. CT post treatment showed stable disease. Review of Systems A 14 point review of systems assessed and completed and all negative except HPI. Past Medical History Past Medical History: Atrial Fibrillation, Cancer, Hyperlipidemia, Hypertension , Myocardial Infarction ([place]), Pneumonia Additional Past Medical History / Comment(s): arrhythmia was previuosly charted but pt denies this, chronic lymphocytic leukemia pt stated had last chemo on , inguinal hernia, hx skin cancer, nstemi 07-12-16 per summary-pt not aware of this. had shigelles vaccine 2011 and in 2012 got a case of the shingelles. 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 murmur."stroke behind lt eye" Last Myocardial Infarction Date:: 1997 History of Any Multi-Drug Resistant Organisms: None Reported Past Surgical History: Hernia Repair, Orthopedic Surgery, Tonsillectomy Additional Past Surgical History / Comment(s): bilateral rotator cuffs, cataracts, umb hernia repair, rt axilla lymph node bx.colonscopy Past Anesthesia/Blood Transfusion Reactions: No Reported Reaction Additional Past Anesthesia/Blood Transfusion Reaction / Comm: clausterphobia. had blood transfusion- no reaction Smoking Status: Former smoker - Past Family History Mother Family Medical History: No Reported History Additional Family Medical History / Comment(s): pt stated his mom was healthy never went to the . dropped at age 70 Father Family Medical History: Congestive Heart Failure (CHF), Myocardial Infarction ( [place]), Vascular Disorder Additional Family Medical History / Comment(s): at age 75. hx heavy smoker Medications and Allergies Home Medications Medication Instructions Recorded Confirmed Type Propafenone [Rythmol] 225 mg PO BID 12/04/15 06/13/18 History Metoprolol Tartrate [Lopressor] 50 mg PO BID tab 07/24/16 06/13/18 Rx Simvastatin [Zocor] 40 mg PO HS 01/23/18 06/13/18 History amLODIPine [Norvasc] 2.5 mg PO DAILY 01/23/18 06/13/18 History Allergies Allergy/AdvReac Type Severity Reaction Status Date / Time No Known Allergies Allergy Verified 06/13/18 12:33 Physical Exam Vitals: Vital Signs Temp Pulse Pulse Resp BP BP Pulse Ox 06/14/18 08:00 84 17 06/14/18 06:32 97.2 F L 84 17 93/57 93 L 06/13/18 23:00 96.0 F L 86 17 83/54 95 06/13/18 17:00 97.5 F L 83 16 104/52 91 L 06/13/18 16:21 99.6 F 88 20 116/55 97 06/13/18 15:25 129 H 24 123/59 95 06/13/18 14:47 102.8 F H Intake and Output 06/13/18 06/14/18 06/14/18 22:59 06:59 14:59 Intake Total 600 Balance 600 Intake: Oral 600 Other: # Voids 1 1 # Bowel Movements 0 0 Weight 74.843 kg - Constitutional General appearance: cooperative, no acute distress - EENT Eyes: EOMI, PERRLA, dentition normal ENT: hard of hearing, NA/AT, normal oropharynx - Neck supple, Trachea midline Neck: normal ROM - Respiratory Respiratory: bilateral: CTA (no increased effort) - Cardiovascular Rhythm: regular Heart sounds: normal: S1, S2 - Gastrointestinal General gastrointestinal: distended, normal bowel sounds, soft - Integumentary Integumentary: pale - Neurologic no focal defects Neurologic: CNII-XII intact - Musculoskeletal Musculoskeletal: gait normal, generalized weakness, strength equal bilaterally - Psychiatric Psychiatric: A&O x's 3, appropriate affect, intact judgment & insight Results CBC & Chem 7: 06/14/18 07:09 06/14/18 07:09 Labs: Abnormal Lab Results - Last 24 Hours (Table) 06/13/18 06/14/18 06/14/18 Range/Units 12:42 07:09 07:09 WBC 17.4 H (3.8-10.6) k/uL RBC 2.96 L (4.30-5.90) m/uL Hgb 9.0 L D (13.0-17.5) gm/dL Hct 27.8 L (39.0-53.0) % Neutrophils # 15.3 H (1.3-7.7) k/uL BUN 21 H (9-20) mg/dL Plasma Lactic Acid Voidio 3.7 H* (0.7-2.0) mmol/L Total Protein 4.4 L (6.3-8.2) g/dL Albumin 2.7 L (3.5-5.0) g/dL Microbiology - Last 24 Hours (Table) 06/13/18 12:42 Blood Culture Gram Stain - Preliminary Blood 06/13/18 12:42 Blood Culture - Final Blood Comments: Gram Positive cocci in clusters one of two resulted blood Chest x-ray: report reviewed Assessment and Plan Plan: Assessment and Recommendations: 1. Chronic Lymphocytic Leukemia - Recent Progressive Disease -Status Post CEOP with Neulasta completed on 05/20/18 - WBC is decreasing, stable today - Monitor CBC Daily 2. Gram Positive Cocci in Clusters - Bacteremia 1 of 2 positive Blood - Would recommend Discontinue Levaquin PO Add Vancomycin IV per Pharmacy Dosing - Await Sensitivity and Repeat negative Blood Cultures - Infectious Disease Consult recommendation 3. Fevers - Related to Number 2 - Improved since admission - Continue IV Hydration and Abx 4. Normocytic anemia: - Secondary to Leukemia, recent chemotherapy - Decrease from 11-9 likely related to dilution, will monitor as no s/s bleeding 5. Nausea and vomiting on Admission - Resolved
[2018-06-14 16:45] VITALS: RESP 16
[2018-06-14] MEDS ORDERED: LEVOFLOXACIN 500MG-D5W PMX 500 MG in DEXTROSE/WATER 1 100ML.BAG IVPB SCH (17:00)
[2018-06-14] MEDS: HEPARIN SODIUM,PORCINE 5,000 UNIT/ML 1 ML VIAL SQ SCH (21:56)
--- NOTE | 2018-06-14 23:36 | PN ---
PROGRESS NOTE ATTENDING PHYSICIAN: Dr. Mane Reaves. CHIEF COMPLAINT: Re-evaluation. HISTORY OF PRESENT ILLNESS: This gentleman is admitted to the hospital because of feeling poorly, has a fever with elevated lactic acid. The patient has underlying history of lymphoma for which he has been on treatment. The patient also was in atrial fibrillation rapid ventricular rate. He had not taken his medications. The patient already feels much better today. He has been afebrile. The blood culture did come back positive, suggestive of strep. The patient's white count is down from 29.1 to 17.4. Hemoglobin is down from 11.7 to 9.0 with platelets down from 230-170. No evidence of bleeding. The patient lactic acid is back to normal 1.8. He is feeling much better. REVIEW OF SYSTEMS: Neuro: Denies any headaches, dizziness. Psych no anxiety, depression. Cardiac: No chest pain, angina, palpitations. Respiratory: Denies shortness of breath, cough, hemoptysis. GI denies any abdominal pain, diarrhea, constipation. no symptoms of dysuria, hematuria, urgency, frequency. EXTREMITIES: Denies pain, edema. Constitutional: No fever, chills. PHYSICAL EXAMINATION: Pleasant gentleman at present in no distress. He has been up and about. VITAL SIGNS: Temperature 97.2, pulse 84, respirations 17, blood pressure 93/57, pulse ox 93% room air. HEENT: Normocephalic. Neck no JVD. CHEST: Clear to percussion. The patient has some tubular breathing in the left lower paravertebral area. Cardiac: Distant heart sounds S1, S2 with no gallop. Irregular rhythm with occasional irregular beats. ABDOMEN: Soft. No palpable masses. Bowel sounds normal. No organomegaly. No abdominal bruits. Extremities reveal no edema. Good pulses both upper lower extremities. NEUROLOGIC: Awake, alert, oriented x3 with well-coordinated movements. The patient has no supraclavicular lymph nodes. Does have small shotty axillary lymph nodes. No splenomegaly. Inguinal nodes minimal enlargement. ASSESSMENT: 1. Bacteremia with sepsis. 2. Probable left lower lobe pneumonia. 3. History of lymphoma, on chemotherapy. PLAN: The patient at present is stable. Continue present medical regimen. Patient's condition discussed with the patient. Prognosis guarded. MMODL / IJN: [id number] /
[2018-06-15] MEDS: SODIUM CHLORIDE 0.9% 1,000 ML IV SCH (06:20)
[2018-06-15 06:22] VITALS: BP 118/74; PULSE 64; TEMP 96.4
[2018-06-15] MEDS: PROPAFENONE 225 MG TAB PO SCH (07:38)
[2018-06-15] MEDS: METOPROLOL TARTRATE 50 MG TAB PO SCH (07:38)
[2018-06-15] MEDS: HEPARIN SODIUM,PORCINE 5,000 UNIT/ML 1 ML VIAL SQ SCH (07:39)
[2018-06-15 08:39] LABS: HCT 33.9 % (39.0-53.0); MCH 30.6 pg (25.0-35.0); MCHC 32.4 g/dL (31.0-37.0); MCV 94.6 fL (80.0-100.0); Mean Platelet Volume 7.1; Platelet Count 280 k/uL (150-450); RBC 3.58 m/uL (4.30-5.90); RDW 14.2 % (11.5-15.5); WBC 10.3 k/uL (3.8-10.6)
[2018-06-15] MEDS ORDERED: LEVOFLOXACIN 500 MG TAB PO SCH (09:00)
[2018-06-15 09:01] LABS: Anion Gap 10 mmol/L; Blood Urea Nitrogen 24 mg/dL (9-20); Calcium 9.1 mg/dL (8.4-10.2); Carbon Dioxide 26 mmol/L (22-30); Chloride 105 mmol/L (98-107); Glucose 110 mg/dL (74-99); Potassium 3.6 mmol/L (3.5-5.1); Sodium 141 mmol/L (137-145)
--- NOTE | 2018-06-15 10:17 | XR ---
EXAMINATION TYPE: XR chest 2V DATE OF EXAM: 06/15/2018 COMPARISON: Chest x-ray from [address] chest abdomen and pelvis from June 07, 2018. HISTORY: Cough. TECHNIQUE: Frontal and lateral views of the chest are obtained. FINDINGS: Eventration of right hemidiaphragm is redemonstrated. Seen best on lateral view there is sinha ggestion of increased opacity retrocardiac region. No significant pleural effusion or pneumothorax i s seen bilaterally. The cardiac silhouette size is stable and mildly enlarged with atherosclerotic th oracic aorta. Fullness right paratracheal region corresponds to known enlarged lymph nodes on CT. The osseous structures are demineralized. IMPRESSION: Possible developing retrocardiac infiltrate and/or atelectasis, consider progress study.
--- NOTE | 2018-06-15 12:02 | P.PN ---
Subjective Progress Note Date: 06/15/18 Principal diagnosis: Fever, CLL Bacteremia results reviewed. Patient had no acute events overnight. He is afebrile since admission Objective - Vital Signs Vital signs: Vital Signs Temp 96.4 F L 06/15/18 06:22 Pulse 64 06/15/18 06:22 Resp 16 06/15/18 08:00 BP 118/74 06/15/18 06:22 Pulse Ox 95 06/15/18 06:22 Intake & Output 06/14/18 06/15/18 06/15/18 18:59 06:59 18:59 Intake Total 600 1000 Balance 600 1000 Weight 74.843 kg Intake: Intake, IV Titration 400 Amount Sodium Chloride 0.9% 1, 400 000 ml @ 50 mls/hr IV . Q20H LIZZIE Rx#:[id number] Oral 600 600 Other: # Voids 8 2 2 - Constitutional General appearance: Present: cooperative, no acute distress - EENT Eyes: Present: EOMI, dentition normal, normal appearance ENT: Present: NA/AT, normal oropharynx - Neck Details: Supple, Trachea Midline Neck: Present: normal ROM - Respiratory Respiratory: bilateral: CTA (No increased effort) - Cardiovascular Rhythm: regular Heart sounds: normal: S1, S2 - Gastrointestinal General gastrointestinal: Present: distended, normal bowel sounds, soft, splenomegaly - Integumentary Integumentary: Present: pale - Neurologic Neurologic Comment(s): No focal Defects Neurologic: Present: CNII-XII intact - Musculoskeletal Musculoskeletal: Present: generalized weakness, strength equal bilaterally - Psychiatric Psychiatric: Present: A&O x's 3, appropriate affect, intact judgment & insight - Labs CBC & Chem 7: 06/15/18 08:12 06/15/18 08:12 Labs: Abnormal Lab Results - Last 24 Hours (Table) 06/15/18 06/15/18 Range/Units 08:12 08:12 RBC 3.58 L (4.30-5.90) m/uL Hgb 11.0 L (13.0-17.5) gm/dL Hct 33.9 L (39.0-53.0) % BUN 24 H (9-20) mg/dL Glucose 110 H (74-99) mg/dL Microbiology - Last 24 Hours (Table) 06/13/18 12:42 Blood Culture Gram Stain - Preliminary Blood Blood Culture - Preliminary Streptococcus pneumoniae Assessment and Plan Plan: Assessment and Recommendations: 1. Chronic Lymphocytic Leukemia - Recent Progressive Disease -Status Post CEOP with Neulasta completed on 05/20/18 - WBC is decreasing, stable today - Monitor CBC Daily - FOllow-up with Dr. Hernandez in 1-2 weeks after discharge 2. Gram Positive Cocci in Clusters - Bacteremia 1 of 2 positive Blood - Levaquin at discharge with resulting Bacteremia with Strept Pneumonaie, and afebrile since admission 3. Fevers - Related to Number 2 - Improved since admission - Continue IV Hydration and Abx 4. Normocytic anemia: - Secondary to Leukemia, recent chemotherapy - Decrease from 11-9 likely related to dilution, will monitor as no s/s bleeding 5. Nausea and vomiting on Admission - Resolved
[2018-06-15 12:11] LABS: Immunoglobulin A <25.5 mg/dL (60.0-350.0); Immunoglobulin M 47.9 mg/dL (40.0-280.0)
== END 2018-06-15 11:21 | disposition home or self-care (01) | DRG 871 ==
LOC: EC 10:29 → 4MS4W 15:57
PROVIDERS: ADMIT Internal Medicine; ATTEND Internal Medicine
DX: A40.3 Sepsis due to Streptococcus pneumoniae (principal); J18.9 Pneumonia, unspecified organism; C91.10 Chronic lymphocytic leukemia of B-cell type not having achieved remission; E78.5 Hyperlipidemia, unspecified; I10 Essential (primary) hypertension; I25.10 Atherosclerotic heart disease of native coronary artery without angina pectoris; I25.2 Old myocardial infarction; I48.0 Paroxysmal atrial fibrillation; M17.11 Unilateral primary osteoarthritis, right knee; R01.1 Cardiac murmur, unspecified; R19.7 Diarrhea, unspecified; R11.2 Nausea with vomiting, unspecified; F40.240 Claustrophobia; D63.0 Anemia in neoplastic disease; Z79.899 Other long term (current) drug therapy; Z87.891 Personal history of nicotine dependence; Z86.73 Personal history of transient ischemic attack (TIA), and cerebral infarction without residual deficits; Z87.01 Personal history of pneumonia (recurrent); Z85.828 Personal history of other malignant neoplasm of skin; Z98.42 Cataract extraction status, left eye; Z98.41 Cataract extraction status, right eye; Z96.1 Presence of intraocular lens; Z82.49 Family history of ischemic heart disease and other diseases of the circulatory system
CPT/HCPCS: 36415; 71046; 80048; 80053; 81001; 82150; 82550; 82553; 82784; 83605; 83690; 84484; 85025; 85027; 85610; 85730; 87040; 87077; 87186; 93005; 96361; 96365; 96375; 99285

== ENCOUNTER → 2018-09-07 | Outpatient (CLI) | payer MEDICARE, BC ==
--- NOTE | 2018-09-07 11:22 | XR ---
EXAMINATION TYPE: XR chest 2V DATE OF EXAM: 09/07/2018 COMPARISON: Prior chest x-ray 06/15/2018 HISTORY: Cough TECHNIQUE: Frontal and lateral views of the chest are obtained. FINDINGS: There is no focal air space opacity, pleural effusion, or pneumothorax seen. The cardiac silhouette size is within normal limits. There is bronchial wall thickening. The osseous structures are intact. IMPRESSION: Correlate for bronchitis, reactive airways disease.
--- NOTE | 2018-09-07 12:22 | CT ---
EXAMINATION TYPE: CT ChestAbdPelvis w con DATE OF EXAM: 09/07/2018 COMPARISON: Previous exam 06/07/2018 HISTORY: Chronic lymphocytic leukemia CT DLP: 1154.1 mGycm Automated exposure control for dose reduction was used. CONTRAST: CT scan of the chest, abdomen and pelvis is performed with Oral Contrast and with IV Contrast, patien t injected with 100 mL of Isovue 300. FINDINGS: LUNGS: Some minimal nodularity present at the posterior lung bases, there areas of bronchial wall thi ckening which is progressed in the interval, no pleural or pericardial effusion. MEDIASTINUM: There are hilar nodes present bilaterally, mediastinal adenopathy shows a similar appear ance to prior exam, bilateral axillary adenopathy again noted. No pericardial effusion is seen. Th ere are coronary artery calcifications present. AORTA: No significant abnormality is seen. OTHER: There is extensive mesenteric adenopathy present similar to prior exam. LIVER/GB: No significant abnormality is appreciated. PANCREAS: No significant abnormality is seen. SPLEEN: No significant abnormality is seen. ADRENALS: No significant abnormality is seen. KIDNEYS: No significant abnormality is seen. REPRODUCTIVE ORGANS: Enlarged prostate shows an inferior impression on the urinary bladder. BOWEL: Extensive diverticular change in the sigmoid colon. No bowel obstruction. FREE AIR: No Free Air visible. ASCITES: None seen. RETROPERITONEAL ADENOPATHY: Extensive retroperitoneal adenopathy is again seen as on prior exam, the re is encasement of the aorta, renal arteries, left renal vein extension into the pelvis as on prior LYMPH NODES: External iliac nodes on the left standing to the groin greater than on the right similar to prior, slight interval increase short axis measurement at the left external iliac node axial imag e 112 measuring 2 cm in short axis as compared to 16 mm on prior, right inguinal node measuring 14 mm as compared to approximately 12 mm on prior. URINARY BLADDER: Bladder wall thickening may be due to chronic outlet obstruction. OSSEOUS STRUCTURES: No significant interval change IMPRESSION: Extensive mesenteric, retroperitoneal, pelvic adenopathy with mediastinal, axillary and h ilar adenopathy as described. Findings are stable to perhaps slightly increased in volume of adenopat hy on current exam.
== END ==
LOC: RADCTMAIN 07:15
PROVIDERS: ATTEND Internal Medicine Hematology & Oncology
DX: C91.10 Chronic lymphocytic leukemia of B-cell type not having achieved remission (principal); R59.0 Localized enlarged lymph nodes; R05 Cough
CPT/HCPCS: 82565; 84520; 71046; 71260; 74177; 36415; Q9967

== ENCOUNTER 2018-09-11 13:26 | Inpatient (IN) | payer MEDICARE, BC ==
[2018-09-11] MEDS ORDERED: ONDANSETRON 4 MG/2 ML VIAL IVP STA (13:51)
[2018-09-11] MEDS ORDERED: SODIUM CHLORIDE 0.9% 1,000 ML IV STA (13:51)
[2018-09-11] MEDS ORDERED: IPRATROPIUM-ALBUTEROL 3 ML NEB INHALATION STA (13:52)
[2018-09-11 14:30] LABS: ALT 30 U/L (21-72); AST 19 U/L (17-59); Albumin 3.5 g/dL (3.5-5.0); Alkaline Phosphatase 73 U/L (38-126); Amylase <30 U/L (30-110); Anion Gap 11 mmol/L; Blood Urea Nitrogen 15 mg/dL (9-20); Carbon Dioxide 24 mmol/L (22-30); Chloride 98 mmol/L (98-107); Glucose 160 mg/dL (74-99); Lipase 29 U/L (23-300); Potassium 3.9 mmol/L (3.5-5.1); Sodium 133 mmol/L (137-145); Total Bilirubin 1.2 mg/dL (0.2-1.3); Total Protein 5.5 g/dL (6.3-8.2)
[2018-09-11 14:34] LABS: Basophils # (A) 0.1 k/uL (0-0.2); Basophils % (A) 0 %; Eosinophils % (A) 0 %; HCT 35.4 % (39.0-53.0); HGB 11.8 gm/dL (13.0-17.5); Lymphocytes # (A) 2.4 k/uL (1.0-4.8); Lymphocytes % (A) 15 %; MCH 29.2 pg (25.0-35.0); MCHC 33.3 g/dL (31.0-37.0); MCV 87.6 fL (80.0-100.0); Mean Platelet Volume 6.7; Monocytes # (A) 0.4 k/uL (0-1.0); Monocytes % (A) 2 %; Neutrophils % (A) 81 %; Platelet Count 196 k/uL (150-450); RBC 4.04 m/uL (4.30-5.90); RDW 13.8 % (11.5-15.5); WBC 16.1 k/uL (3.8-10.6)
[2018-09-11 14:35] LABS: Appearance,Urine Clear (Clear); Bilirubin,Urine Negative (Negative); Blood,Urine Negative (Negative); Color,Urine Yellow; Glucose,Urine (UA) Negative (Negative); Ketones,Urine 2+ (Negative); Leukocyte Esterase,Urine Negative (Negative); Nitrite,Urine Negative (Negative); Protein,Urine Trace (Negative); Specific Gravity,Urine 1.016 (1.001-1.035); Urobilinogen,Urine <2.0 mg/dL (<2.0)
--- NOTE | 2018-09-11 14:41 | ED ---
Abdominal Pain HPI - General Chief Complaint: Abdominal Pain Stated Complaint: No appetite Time Seen by Provider: 09/11/18 13:42 Source: patient, RN notes reviewed, old records reviewed Mode of arrival: wheelchair Limitations: no limitations - History of Present Illness Initial Comments: Patient is an 78-year-old male with history of CLL presents emergency department today with chief complaint of increased fatigue shortness of breath, and cough. He complains of poor appetite complains of nausea and occasional abdominal pain. Patient reports that his abdominal pain spelled similar to when he was told that is what lymph nodes were enlarging. Patient reports that he had a computed tomography scan done on Wednesday ordered by his oncologist Dr. browning. He reports he has not had the results the tests. Patient reports he feels extremely nauseated and has had a 40 pound weight loss over the past year. Patient's main complaint is the nausea and fatigue. He denies any changes in urination or stools. Patient reports that he has no chest pain. He does complain of a cough and complains of increased wheezing and shortness of breath. Patient states that he was started on azithromycin 1 month ago for bronchitis. He has not been on any recent antibiotics. - Related Data Home Medications Medication Instructions Recorded Confirmed Propafenone [Rythmol] 225 mg PO BID 12/04/15 06/13/18 Simvastatin [Zocor] 40 mg PO HS 01/23/18 06/13/18 amLODIPine [Norvasc] 2.5 mg PO DAILY 01/23/18 06/13/18 Previous Rx's Medication Instructions Recorded Metoprolol Tartrate [Lopressor] 50 mg PO BID tab 07/24/16 Cephalexin [Keflex] 500 mg PO Q6HR #40 cap 06/15/18 Allergies Allergy/AdvReac Type Severity Reaction Status Date / Time No Known Allergies Allergy Verified 09/11/18 13:32 Review of Systems ROS Statement: Those systems with pertinent positive or pertinent negative responses have been documented in the HPI. ROS Other: All systems not noted in ROS Statement are negative. Past Medical History Past Medical History: Atrial Fibrillation, Cancer, Hyperlipidemia, Hypertension , Myocardial Infarction (NM), Pneumonia Additional Past Medical History / Comment(s): arrhythmia was previuosly charted but pt denies this, chronic lymphocytic leukemia pt stated had last chemo on 7- 13-18 , inguinal hernia, hx skin cancer, nstemi 9-4-16 per summary-pt not aware of this. had shigelles vaccine 2011 and in 2013 got a case of the shingelles. 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 murmur."stroke behind lt eye" Last Myocardial Infarction Date:: 1997 History of Any Multi-Drug Resistant Organisms: None Reported Past Surgical History: Hernia Repair, Orthopedic Surgery, Tonsillectomy Additional Past Surgical History / Comment(s): bilateral rotator cuffs, cataracts, umb hernia repair, rt axilla lymph node bx.colonscopy Past Anesthesia/Blood Transfusion Reactions: No Reported Reaction Additional Past Anesthesia/Blood Transfusion Reaction / Comment(s): clausterphobia. had blood transfusion- no reaction Past Psychological History: No Psychological Hx Reported Smoking Status: Former smoker Past Alcohol Use History: None Reported Past Drug Use History: None Reported - Past Family History Mother Family Medical History: No Reported History Additional Family Medical History / Comment(s): pt stated his mom was healthy never went to the . dropped at age 70 Father Family Medical History: Congestive Heart Failure (CHF), Myocardial Infarction ( NM), Vascular Disorder Additional Family Medical History / Comment(s): at age 75. hx heavy smoker General Exam - General Exam Comments Initial Comments: This is an 78-year-old male. Alert and oriented. Patient appears in no significant distress. Limitations: no limitations General appearance: alert, in no apparent distress Head exam: Present: atraumatic, normocephalic, normal inspection Eye exam: Present: normal appearance, PERRL, EOMI. Absent: scleral icterus, conjunctival injection, periorbital swelling ENT exam: Present: normal exam Neck exam: Present: normal inspection Respiratory exam: Present: wheezes (I wheezing noted bilaterally lung mathur.). Absent: normal lung sounds bilaterally, respiratory distress, rales, rhonchi, stridor Cardiovascular Exam: Present: regular rate, normal rhythm, normal heart sounds. Absent: systolic murmur, diastolic murmur, rubs, gallop, clicks GI/Abdominal exam: Present: soft, hyperactive bowel sounds. Absent: distended, tenderness, guarding, rebound, rigid, normal bowel sounds Extremities exam: Present: normal inspection, full ROM, normal capillary refill. Absent: tenderness, pedal edema, joint swelling, calf tenderness Back exam: Present: normal inspection Neurological exam: Present: alert, oriented X3, CN II-XII intact Psychiatric exam: Present: normal affect, normal mood Course Vital Signs 09/11/18 09/11/18 09/11/18 13:30 14:05 14:15 Temperature 98.4 F Pulse Rate 94 90 94 Respiratory 18 Rate Blood Pressure 123/73 O2 Sat by Pulse 92 L Oximetry 09/11/18 09/11/18 15:03 15:30 Temperature 101 F H Pulse Rate 90 92 Respiratory 16 25 H Rate Blood Pressure 110/95 110/95 O2 Sat by Pulse 92 L 93 L Oximetry Medical Decision Making - Medical Decision Making Patient is an 78-year-old male presents with a chief complaint of cough, shortness of breath, complains of increased fatigue and lack of appetite. At this time patient's labwork showed leukocytosis with blood cell count of 16, 000. Lactic acid was normal. Chest x-ray does show evidence of the left lower lobe pneumonia. This has progressed since his chest x-ray on Wednesday. He did have wheezing noted bilaterally. Given a DuoNeb treatment. Patient was had blood cultures obtained. Patient was started on Rocephin and azithromycin. Patient case discussed with Dr. Sanchez. He discussed the case with Dr. Heart who agrees to admit the Patient. We'll use the pneumonia protocol. Patient also is a known history of CLL. We will also consult patient's oncologist Dr. Hernandez. - Lab Data Result diagrams: 09/11/18 14:00 09/11/18 14:00 Lab Results 09/11/18 09/11/18 09/11/18 Range/Units 14:00 14:00 14:00 WBC 16.1 H (3.8-10.6) k/uL RBC 4.04 L (4.30-5.90) m/uL Hgb 11.8 L (13.0-17.5) gm/dL Hct 35.4 L (39.0-53.0) % MCV 87.6 (80.0-100.0) fL MCH 29.2 (25.0-35.0) pg MCHC 33.3 (31.0-37.0) g/dL RDW 13.8 (11.5-15.5) % Plt Count 196 (150-450) k/uL Neutrophils % 81 % Lymphocytes % 15 % Monocytes % 2 % Eosinophils % 0 % Basophils % 0 % Neutrophils # 13.0 H (1.3-7.7) k/uL Lymphocytes # 2.4 (1.0-4.8) k/uL Monocytes # 0.4 (0-1.0) k/uL Eosinophils # 0.0 (0-0.7) k/uL Basophils # 0.1 (0-0.2) k/uL Sodium 133 L (137-145) mmol/L Potassium 3.9 (3.5-5.1) mmol/L Chloride 98 (98-107) mmol/L Carbon Dioxide 24 (22-30) mmol/L Anion Gap 11 mmol/L BUN 15 (9-20) mg/dL Creatinine 0.93 (0.66-1.25) mg/dL Est GFR (CKD-EPI)AfAm 90 (>60 ml/min/1.73 sqM) Est GFR (CKD-EPI)NonAf 78 (>60 ml/min/1.73 sqM) Glucose 160 H (74-99) mg/dL Plasma Lactic Acid Ovidio 1.3 (0.7-2.0) mmol/L Calcium 9.0 (8.4-10.2) mg/dL Total Bilirubin 1.2 (0.2-1.3) mg/dL AST 19 (17-59) U/L ALT 30 (21-72) U/L Alkaline Phosphatase 73 (38-126) U/L Troponin I (0.000-0.034) ng/mL Total Protein 5.5 L (6.3-8.2) g/dL Albumin 3.5 (3.5-5.0) g/dL Amylase <30 L (30-110) U/L Lipase 29 (23-300) U/L Urine Color Urine Appearance (Clear) Urine pH (5.0-8.0) Ur Specific [place] (1.001-1.035) Urine Protein (Negative) Urine Glucose (UA) (Negative) Urine Ketones (Negative) Urine Blood (Negative) Urine Nitrite (Negative) Urine Bilirubin (Negative) Urine Urobilinogen (<2.0) mg/dL Ur Leukocyte Esterase (Negative) 09/11/18 09/11/18 Range/Units 14:00 14:20 WBC (3.8-10.6) k/uL RBC (4.30-5.90) m/uL Hgb (13.0-17.5) gm/dL Hct (39.0-53.0) % MCV (80.0-100.0) fL MCH (25.0-35.0) pg MCHC (31.0-37.0) g/dL RDW (11.5-15.5) % Plt Count (150-450) k/uL Neutrophils % % Lymphocytes % % Monocytes % % Eosinophils % % Basophils % % Neutrophils # (1.3-7.7) k/uL Lymphocytes # (1.0-4.8) k/uL Monocytes # (0-1.0) k/uL Eosinophils # (0-0.7) k/uL Basophils # (0-0.2) k/uL Sodium (137-145) mmol/L Potassium (3.5-5.1) mmol/L Chloride (98-107) mmol/L Carbon Dioxide (22-30) mmol/L Anion Gap mmol/L BUN (9-20) mg/dL Creatinine (0.66-1.25) mg/dL Est GFR (CKD-EPI)AfAm (>60 ml/min/1.73 sqM) Est GFR (CKD-EPI)NonAf (>60 ml/min/1.73 sqM) Glucose (74-99) mg/dL Plasma Lactic Acid [place] (0.7-2.0) mmol/L Calcium (8.4-10.2) mg/dL Total Bilirubin (0.2-1.3) mg/dL AST (17-59) U/L ALT (21-72) U/L Alkaline Phosphatase (38-126) U/L Troponin I <0.012 (0.000-0.034) ng/mL Total Protein (6.3-8.2) g/dL Albumin (3.5-5.0) g/dL Amylase (30-110) U/L Lipase (23-300) U/L Urine Color Yellow Urine Appearance Clear (Clear) Urine pH 6.0 (5.0-8.0) Ur Specific [place] 1.016 (1.001-1.035) Urine Protein Trace H (Negative) Urine Glucose (UA) Negative (Negative) Urine Ketones 2+ H (Negative) Urine Blood Negative (Negative) Urine Nitrite Negative (Negative) Urine Bilirubin Negative (Negative) Urine Urobilinogen <2.0 (<2.0) mg/dL Ur Leukocyte Esterase Negative (Negative) 09/11/18 15:21 EKG performed at 1440 tissue sinus rhythm with first-degree the block. Septal infarct age undetermined. Abnormal EKG. Particularly, 91 bpm. Pulse to 80 ms. QRS ration 98 ms. QT QTc is 372/457 ms. - Radiology Data Radiology results: report reviewed Chest x-ray shows left lower lobe pneumonia. Follow-up recommended. KUB shows nonspecific abdomen. Some air-fluid levels with small bowel loops. Considering ileus. Low-grade partial small bowel instruction is not excluded. Disposition Clinical Impression: Pneumonia, Ileus, Sepsis, CLL (chronic lymphocytic leukemia) Disposition: ADMITTED IP TO THIS HOSP Condition: Stable Is patient prescribed a controlled substance at d/c from ED?: No Referrals: Escobar Reaves MD [Primary Care Provider] - 1-2 days Time of Disposition: 15:44
--- NOTE | 2018-09-11 14:45 | XR ---
EXAMINATION TYPE: XR chest 2V DATE OF EXAM: 09/11/2018 COMPARISON: 09/07/2018 INDICATION: Abdomen pain increasing fatigue and nausea TECHNIQUE: Frontal and lateral views of the chest are obtained. FINDINGS: The heart size is normal. The pulmonary vasculature is normal. There is a posterior left lower lobe infiltrate which is developing from prior study. Correlate for p neumonia. IMPRESSION: 1. Left lower lobe pneumonia. Follow-up is recommended.
--- NOTE | 2018-09-11 14:53 | XR ---
EXAMINATION TYPE: XR KUB DATE OF EXAM: 09/11/2018 COMPARISON: 02/08/2018 HISTORY: Abdomen pain nausea TECHNIQUE: Abdomen is examined in the upright and supine views. FINDINGS: Some contrast appears to be within the distal colon. Nonspecific bowel gas is present withi n small bowel loops as well as the colon. Some prominent small bowel loops are in the right midabdome n. No free air is evident. No mass effect is evident. Psoas margins are normal. IMPRESSION: 1. Nonspecific abdomen. There are some air-fluid levels within small bowel loops. Consider ileus wit hin the differential. Low-grade partial small bowel obstruction is not excluded. 2. See chest x-ray report same date.
[2018-09-11] MEDS ORDERED: AZITHROMYCIN 500 MG TAB PO STA (15:00)
[2018-09-11] MEDS ORDERED: IBUPROFEN 600 MG TAB PO STA (15:10)
[2018-09-11] MEDS ORDERED: ACETAMINOPHEN TAB 500 MG TAB PO STA (15:10)
[2018-09-11] MEDS ORDERED: IPRATROPIUM-ALBUTEROL 3 ML NEB INHALATION PRN (15:44)
[2018-09-11] MEDS ORDERED: PNEUMONIA PROTOCOL UTILIZED 1 EACH MISC PO PRN (15:44)
[2018-09-11] MEDS ORDERED: SODIUM CHLORIDE 0.9% 1,000 ML IV ONE (15:59)
[2018-09-11] MEDS: SODIUM CHLORIDE 0.9% 1,000 ML IV SCH ×2 (16:55→22:16)
[2018-09-11 17:50] VITALS: BMI 25.0
[2018-09-11] MEDS ORDERED: ACETAMINOPHEN TAB 325 MG TAB PO PRN (17:54)
[2018-09-11] MEDS ORDERED: PIPERACILLIN-TAZOBACTAM 3.375 GM in SODIUM CHLORIDE 0.9% 100 ML IVPB SCH (18:00)
--- NOTE | 2018-09-11 19:35 | HP ---
HISTORY AND PHYSICAL DATE OF SERVICE: 09/11/2018 ATTENDING PHYSICIAN: Dr. Reaves CHIEF COMPLAINT: Patient presented with the abdominal pain as well as coughing with expectoration. HISTORY OF PRESENT ILLNESS: Mr. Lee is an 78 year old white male who has been admitted to the hospital from the emergency room with the feeling of nausea, but no vomiting with the abdominal pain and he is febrile with the 101 temperature. In the emergency room as well as on the floor in between when down after he received Tylenol acetaminophen in the emergency room, then subsequently went up again. PAST MEDICAL HISTORY: He had community-acquired pneumonia in June of 2018 and he had also history of strep pneumonia bacteremia as well as chronic lymphocytic leukemia and immunosuppression. He had history of atrial fibrillation. However, on this admission, he is sinus rhythm with a first-degree AV block and septal infarction by the EKG. He has a history of anemia and thrombocytopenia. In the emergency room, found that he had a posterior left lung with the pneumonia. I did review the x-ray as well which is posterior left lower lobe pneumonia. He has also x-ray of the abdomen and showed air-fluid level with the presence of ileus. The patient's current medication: He has he taken Rythmol 225 twice a day for the history of atrial fibrillation, which is currently sinus rhythm with first-degree AV block. He has history of hyperlipidemia and he is on 40 mg of simvastatin at bedtime. He has taken amlodipine 2.5 mg daily, but currently with the underlying pneumonia and ileus with questionable sepsis, we held the amlodipine. Next is metoprolol tartrate, Lopressor 50 mg b.i.d. and continued with that. He was on Keflex 500 mg every 6 hours and we held that at this time and with the underlying abdominal pain and the reviews of the CT scan, which was done on August found that he had significant lymphadenopathy and increased or no change and for that purpose, we consulted Dr. Hernandez as well and placed on clear liquid diet. We also reviewed the chest x-ray and he has an underlying thickening of the bronchial with the possibility of resolving that was done on last Wednesday. However, currently the CT scan was done and questionable underlying pneumonia as well has been elicited. He is . He has 2 sons. Nonsmoker and he used to smoke in the past and he is no drinker. No illicit drugs. In the past history, he had orthopedic surgery and tonsillectomy. He had bilateral rotator cuff and cataract surgery and an umbilical hernia repair and right axillary lymph node, and colonoscopy with biopsy. His last chemo was done in May 20, 2018 and he had a shingles vaccine in 2011 and in 2012 he had case of shingles. 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 He had a myocardial infarction in 1997. He is a former smoker. No psychological or neurological otherwise events recently. His mom has been healthy and suddenly. Family history of congestive heart failure. Myocardial infarction, vascular disorder. His dad at age of 75 and he was heavy smoker. REVIEWING OF THE SYSTEM: Neuropsychiatry: Was negative. Cardiovascular: History of cardiac arrhythmia has been stable and with the irregular rhythm and he has taken medication Rythmol. On Pulmonary, he is coughing and progressively started on Wednesday and worsening. He was seen previously by Dr. Reaves who treated it with azithromycin. GI: No symptoms of hematochezia or hematemesis or melena. However, he had his last bowel movement on Wednesday and was normal. The abdominal pain started on Wednesday. Musculoskeletal: He is ambulatory. PHYSICAL EXAM: On admission at 1600 hour, his temperature was 101 and his pulse rate 90, respiratory rate 16, blood pressure 110/95, his pulse ox was 92, and subsequently seen on the floor. His temperature 98.1 and heart rate 84, respiratory rate 20, blood pressure dropped to 108/58 with a mean arterial pressure is 74, and his pulse ox was 93. We held the amlodipine at this time. On the examination, the head was normocephalic and atraumatic. Pupil was reactive with history of cataract. Oropharynx had dentures upper and lower. No ulceration. Normal tongue. The neck was supple. No JVD. No thyromegaly. The patient has the CT scan and he had axillary lymph node enlargement as well. The chest was aerated bilaterally with decreased dullness on the left lower lung base on percussion and decreased air entry on auscultation. The heart PMI in the 5th intercostal space. Regular sinus rhythm with a history of paroxysmal atrial fibrillation, but currently the EKG has sinus rhythm with first-degree AV block. The abdomen vague diffuse abdominal pain and could not feel a lymph node or enlarged liver or spleen. However, the CT scan was indicating that which is done on September 07 as it is on the computer. The extremities, he has no edema. He has pulses bilateral. He has loss of arch and flat feet bilaterally. Neurological examination was grossly intact and he is ambulatory. IMPRESSION: 1. Fever, chills, leukocytosis, and mild hyponatremia associated for left lower lobe infiltrate. 2. Underlying low-grade ileus with the history of chronic lymphocytic leukemia and the CT scan indicating the lymph node no significant regression. 3. Underlying sepsis as well as considered with the fever and chills at home. PLAN: We will start him on Zosyn IV piggyback and discontinue azithromycin. Continue with the Rocephin at this time and continue the IV fluid. Discontinue the Norvasc until his blood pressure is stable and a consultation with Dr. Hernandez, the Oncology, Hematology as well as Dr. Reaves will see him tomorrow. On reviewing the laboratory indicating that protein is 5.5, and amylase less than 30, lipase is 29. MMODL / IJN: [id number] /
[2018-09-11] MEDS: ATORVASTATIN 20 MG TAB PO SCH (20:30)
[2018-09-11] MEDS ORDERED: METOPROLOL TARTRATE 50 MG TAB PO SCH (21:00)
[2018-09-11] MEDS: PROPAFENONE 225 MG TAB PO SCH (21:42)
[2018-09-11] MEDS: SODIUM CHLORIDE 0.9% 500 ML 300 ML IV SCH ×2 (21:54→22:16)
[2018-09-11] MEDS: PIPERACILLIN-TAZOBACTAM 3.375 GM in SODIUM CHLORIDE 0.9% 100 ML IVPB SCH (22:35)
[2018-09-12] MEDS: SODIUM CHLORIDE 0.9% 1,000 ML IV SCH ×2 (05:49→15:04)
[2018-09-12] MEDS: PIPERACILLIN-TAZOBACTAM 3.375 GM in SODIUM CHLORIDE 0.9% 100 ML IVPB SCH ×3 (05:50→21:00)
[2018-09-12] MEDS: PROPAFENONE 225 MG TAB PO SCH ×2 (08:49→20:28)
[2018-09-12] MEDS: METOPROLOL TARTRATE 25 MG TAB PO SCH ×2 (08:49→20:28)
[2018-09-12] MEDS ORDERED: AZITHROMYCIN 250 MG TAB PO SCH (09:00)
[2018-09-12] MEDS ORDERED: amLODIPine 2.5 MG TAB PO SCH (09:00)
--- NOTE | 2018-09-12 10:25 | XR ---
EXAMINATION TYPE: XR chest 2V DATE OF EXAM: 09/12/2018 COMPARISON: 09/11/2018 TECHNIQUE: PA and lateral views submitted. HISTORY: Pneumonia FINDINGS: Left lower lobe infiltrate and small effusion. No interstitial edema or pneumothorax. Hypertrophic an d degenerative change of the spine. Atherosclerotic change aorta. Diffuse osteopenia. No overt failur e. IMPRESSION: 1. Persistent left lower lobe infiltrate stable in appearance.
--- NOTE | 2018-09-12 10:46 | P.CONS ---
History of Present Illness - Reason for Consult Consult date: 09/12/18 [facility] Requesting physician: Maribel Alcala - Chief Complaint F, cough, N, weakness - History of Present Illness Mr. Lee is a very pleasant pt of Dr. Hernandez with a history of stage 0 CLL diagnosed in 2003, observation until 06/16 when he became symptomatic with increased WBC, decreased platelets and palpable adenopathy. He was treated with bendamustine and rituxan x 4 cycles, post treatment monitoring. He has required high dose steroid treatments through the years for episodes of thrombocytopenia (2010, 12/2011, 07/2012). In early 2013 he had a bone marrow aspiration and biopsy for persistent leukopenia, this showed CLL, as expected but, no new findings. He was treated with Rituxan x 4. He had recurrent low counts and lymphadenopathy and was treated again in 10/21. 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 He was treated with Rituxan and bendeka x 6, completed 12/25. 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 CT post treatment showed stable disease. Pt admitted for fever, cough with purulent sputum and weakness, poor appetite over the last 3-4 days. Today he feels better, he ate all his breakfast, no fevers, nausea, cough is improving, denies abd pain, distension, he had a BM this AM, no bleeding, swelling, he is ambulatory. Review of Systems 14 point ROS is negative except as sated in HPI,presenting symptoms improving Past Medical History Past Medical History: Atrial Fibrillation, Cancer, Hyperlipidemia, Hypertension , Myocardial Infarction ([place]), Pneumonia Additional Past Medical History / Comment(s): arrhythmia was previuosly charted but pt denies this, chronic lymphocytic leukemia pt stated had last chemo on , inguinal hernia, hx skin cancer, nstemi 07-12-16 per summary-pt not aware of this. had shigelles vaccine 2011 and in 2012 got a case of the shingelles. 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 murmur."stroke behind lt eye" Last Myocardial Infarction Date:: 1997 History of Any Multi-Drug Resistant Organisms: None Reported Past Surgical History: Hernia Repair, Orthopedic Surgery, Tonsillectomy Additional Past Surgical History / Comment(s): bilateral rotator cuffs, cataracts, umb hernia repair, rt axilla lymph node bx.colonscopy Past Anesthesia/Blood Transfusion Reactions: No Reported Reaction Additional Past Anesthesia/Blood Transfusion Reaction / Comm: clausterphobia. had blood transfusion- no reaction Past Psychological History: No Psychological Hx Reported Additional Psychological History / Comment(s): mild depression over medical problems but stated no thoughts of wanting to harm self. pt lives with . no home care services, no medical equipment. pt drives. pt served in the [employer] for 8 years. after leaving the [employer],pt worked at [employer] in [place] for 39 years. Smoking Status: Former smoker Past Alcohol Use History: None Reported Additional Past Alcohol Use History / Comment(s): started smoking cigars 1959 quit smoking 1989. Past Drug Use History: None Reported - Past Family History Mother Family Medical History: No Reported History Additional Family Medical History / Comment(s): pt stated his mom was healthy never went to the . dropped at age 70 Father Family Medical History: Congestive Heart Failure (CHF), Myocardial Infarction ( [place]), Vascular Disorder Additional Family Medical History / Comment(s): at age 75. hx heavy smoker Medications and Allergies Home Medications Medication Instructions Recorded Confirmed Type Propafenone [Rythmol] 225 mg PO BID 12/04/15 09/11/18 History Metoprolol Tartrate [Lopressor] 50 mg PO BID tab 07/24/16 09/11/18 Rx Simvastatin [Zocor] 40 mg PO HS 01/23/18 09/11/18 History amLODIPine [Norvasc] 2.5 mg PO DAILY 01/23/18 09/11/18 History Allergies Allergy/AdvReac Type Severity Reaction Status Date / Time No Known Allergies Allergy Verified 09/11/18 18:08 Physical Exam Vitals: Vital Signs Temp Pulse Pulse Pulse Resp BP BP 09/12/18 08:00 72 18 09/12/18 07:00 98.4 F 72 18 97/56 09/12/18 05:10 97.9 F 66 16 96/61 09/12/18 00:33 98/56 09/12/18 00:00 97.4 F L 67 16 87/52 09/11/18 22:26 97.4 F L 65 16 94/52 09/11/18 21:08 63 88/51 09/11/18 20:33 97.9 F 65 16 84/51 09/11/18 16:56 98.1 F 84 20 108/58 09/11/18 16:30 98.9 F 87 16 106/67 09/11/18 16:00 93 18 114/66 09/11/18 15:30 92 25 H 110/95 09/11/18 15:03 101 F H 90 16 110/95 09/11/18 14:15 94 09/11/18 14:05 90 09/11/18 13:30 98.4 F 94 18 123/73 Pulse Ox 09/12/18 08:00 09/12/18 07:00 93 L 09/12/18 05:10 97 09/12/18 00:33 09/12/18 00:00 96 09/11/18 22:26 97 09/11/18 21:08 09/11/18 20:33 94 L 09/11/18 16:56 93 L 09/11/18 16:30 96 09/11/18 16:00 93 L 09/11/18 15:30 93 L 09/11/18 15:03 92 L 09/11/18 14:15 09/11/18 14:05 09/11/18 13:30 92 L Intake and Output 09/11/18 09/12/18 09/12/18 22:59 06:59 14:59 Intake Total 250 1470 Balance 250 1470 Intake: Intake, IV Titration 100 1470 Amount Piperacillin-Tazobactam 3 100 .375 gm In Sodium Chloride 0.9% 100 ml @ 25 mls/hr IVPB Q8H [facility] Rx#: [id number] Sodium Chloride 0.9% 1, 100 720 000 ml @ 120 mls/hr IV . Q8H20M [facility] Rx#:[id number] Sodium Chloride 0.9% 500 600 ml 300 ml @ 999 mls/hr IV .Q19M [facility] Rx#:[id number] cefTRIAXone 1,000 mg In 50 Sodium Chloride 0.9% 50 ml @ 100 mls/hr IVPB Q12H [facility] Rx#:[id number] Oral 150 Other: Voiding Method Toilet Toilet # Voids 1 1 # Bowel Movements 1 Weight 74.843 kg 74.843 kg - Constitutional General appearance: average body habitus, cooperative, no acute distress - EENT Eyes: anicteric sclerae, EOMI, normal appearance ENT: hearing grossly normal, normal oropharynx - Neck Neck: no lymphadenopathy - Respiratory Respiratory: right: CTA, left: rales - Cardiovascular Rhythm: regular Heart sounds: normal: S1, S2 - Gastrointestinal General gastrointestinal: no absent bowel sounds, no decreased bowel sounds, no distended, no hepatomegaly, no hyperactive bowel sounds, normal bowel sounds, no organomegaly, no rigid, no scaphoid, soft, no splenomegaly, no tenderness, no umbilical hernia, no ventral hernia - Neurologic Neurologic: CNII-XII intact - Musculoskeletal Musculoskeletal: strength equal bilaterally - Psychiatric Psychiatric: A&O x's 3, appropriate affect, intact judgment & insight Results CBC & Chem 7: 09/11/18 14:00 09/11/18 14:00 Labs: Abnormal Lab Results - Last 24 Hours (Table) 09/11/18 09/11/18 09/11/18 Range/Units 14:00 14:00 14:20 WBC 16.1 H (3.8-10.6) k/uL RBC 4.04 L (4.30-5.90) m/uL Hgb 11.8 L (13.0-17.5) gm/dL Hct 35.4 L (39.0-53.0) % Neutrophils # 13.0 H (1.3-7.7) k/uL Sodium 133 L (137-145) mmol/L Glucose 160 H (74-99) mg/dL Total Protein 5.5 L (6.3-8.2) g/dL Amylase <30 L (30-110) U/L Urine Protein Trace H (Negative) Urine Ketones 2+ H (Negative) Chest x-ray: report reviewed Abdominal x-ray: report reviewed Assessment and Plan (1) Chronic lymphocytic leukemia Narrative/Plan: Pt has been treated multiple times in the past for recurrences of disease, most recent f/u showed stable disease. In the past when pt has presented with infection his lymph nodes tend to be very reactive with temporary enlargement. Abd xray report reviewed. Pt did have a BM today and is denied having abd pain or distension on presentation, no abd symptoms to report today. Plan is to wait for resolution of sepsis/pneumonia and if any symptoms persist, re-evaluate adenopathy. Pt will continue current follow up Current Visit: Yes Status: Chronic Priority: Medium Code(s): C91.10 - CHRONIC LYMPHOCYTIC LEUK OF B-CELL TYPE NOT ACHIEVE REMIS SNOMED Code(s): 28232382 (2) Ileus Narrative/Plan: Pt denies abd symptoms at this time, abd exam benign. BM this AM. Cont to monitor, recommend f/u abd xray to resolution. Current Visit: Yes Status: Acute Priority: Low Code(s): K56.7 - ILEUS, UNSPECIFIED SNOMED Code(s): 278094212 (3) Sepsis Narrative/Plan: Pt feels much better after administration of abx. Due to chronic leukemia, history of multiple treatments and recurrent infections Immunoglobulin levels will be ordered, IVIg will be ordered if low levels Current Visit: Yes Status: Acute Priority: High Code(s): A41.9 - SEPSIS, UNSPECIFIED ORGANISM SNOMED Code(s): 70873926 (4) Generalized weakness Narrative/Plan: Pt feels less weak todya, suspect r/t acute illness. PT/OT ordered. Current Visit: Yes Status: Acute Priority: Medium Code(s): R53.1 - WEAKNESS SNOMED Code(s): 38804381
[2018-09-12] MEDS ORDERED: IMMUNE GLOBULIN (GAMMAGARD) 1 GM/10 ML VIAL IV ONE (10:51)
[2018-09-12] MEDS ORDERED: IMMUNE GLOBULIN (GAMUNEX-C) 10 GM in EMPTY BAG 1 BAG IV NR (12:00)
[2018-09-12] MEDS ORDERED: IMMUNE GLOBULIN (GAMMAGARD) 30 GM in EMPTY BAG 1 BAG IV NR (12:00)
[2018-09-12] MEDS ORDERED: IMMUNE GLOBULIN (GAMUNEX-C) 20 GM in EMPTY BAG 1 BAG IV NR (12:00)
[2018-09-12] MEDS: ATORVASTATIN 20 MG TAB PO SCH (20:28)
--- NOTE | 2018-09-12 20:31 | PN ---
PROGRESS NOTE CHIEF COMPLAINT: Re-evaluation. HISTORY OF PRESENT ILLNESS: This is an 78-year-old gentleman was admitted to the hospital after presenting to the emergency room because he was having some nausea. The patient said he did not feel well. The patient was noted to have a temperature 101. Chest x-ray suggested possible left lower lobe pneumonia; however, patient's CT scan done 2 days prior basically suggests most likely bronchitis with some nodularities there. The patient does have some sputum production. He has had pneumonias off and on since he has had a history of chronic lymphocytic leukemia and does have chemotherapy at present. The patient does not have leukocytosis. He does have an elevated white count of 16,000. The patient initially had a temperature of 101. There is no evidence of sepsis. His lactic acid was in normal range. The patient feels fairly well this morning. His nausea has resolved. He has had no chest pain. Denies shortness of breath. REVIEW OF SYSTEMS: NEURO: Denies any headaches, dizziness. PSYCH: No anxiety. CARDIAC: No chest pain, angina, palpitations. RESPIRATORY: Denies shortness of breath. Does have cough. No hemoptysis. GI: No nausea, vomiting, abdominal pain, diarrhea. : No symptoms of dysuria or hematuria, urgency, frequency. EXTREMITIES: Denies pain, edema. CONSTITUTIONAL: No fever or chills. PHYSICAL EXAMINATION: Pleasant gentleman, at present in no distress. VITAL SIGNS: Temperature 98.4, pulse 72, respirations 18, blood pressure 97/56, pulse ox 93% on room air. HEENT: Normocephalic. NECK: No JVD. CHEST EXAMINATION: Clear to auscultation, right lung. Left lung base patient has dry crackles. CARDIAC: Distant heart sounds S1, S2 with no gallops. Systolic murmur 2/6, left sternal border. Regular rhythm. ABDOMEN: Soft. Bowel sounds present. Extremities reveal no edema. No tenderness. Generalized decreased muscle mass in the legs. NEUROLOGIC: Awake, alert, oriented x3 with well-coordinated movements. Lymphadenopathy, supraclavicular and cervical. Axillary is not appreciated. Inguinal not appreciated. The patient's CT scan done on 09/06 was reviewed. The patient's lymphangitic disease process is about the same. ASSESSMENT: 1. Respiratory tract infection. Rule out left lower lobe pneumonia. 2. History of chronic lymphocytic leukemia, post treatment. 3. Possible conversion to lymphoma. 4. Abdominal lymphadenopathy. Actually the patient's lymphadenopathy seems to have improved compared to when he started with the treatments. 5. History of paroxysmal atrial fibrillation, controlled. 6. Decreased blood pressure. PLAN: Continue present medical regimen. Cut his Lopressor to 25 mg b.i.d. Continue flecainide. Patient is on antibiotic. Await culture results. Previously patient's blood cultures have often been positive for strep. If the blood culture is negative, patient will be discharged home. MMODL / IJN: [id number] /
[2018-09-13] MEDS: SODIUM CHLORIDE 0.9% 1,000 ML IV SCH ×2 (05:11→21:49)
[2018-09-13] MEDS: PIPERACILLIN-TAZOBACTAM 3.375 GM in SODIUM CHLORIDE 0.9% 100 ML IVPB SCH ×3 (06:20→21:52)
[2018-09-13] MEDS: PROPAFENONE 225 MG TAB PO SCH ×2 (08:15→20:47)
[2018-09-13] MEDS: METOPROLOL TARTRATE 25 MG TAB PO SCH ×2 (08:16→20:47)
[2018-09-13 13:54] LABS: Immunoglobulin A <25.5 mg/dL (60.0-350.0)
[2018-09-13] MEDS: ATORVASTATIN 20 MG TAB PO SCH (20:47)
--- NOTE | 2018-09-13 23:24 | PN ---
PROGRESS NOTE ATTENDING PHYSICIAN: Dr. Mane Reaves. CHIEF COMPLAINT: Re-evaluation. HISTORY OF PRESENT ILLNESS: An 78-year-old gentleman who was admitted to the hospital with some nausea and fever. The patient has a history of chronic lymphocytic leukemia with possible transformation to lymphoma. The patient has received chemotherapy in the outpatient setting. The disease process appears stable. The patient does have some infiltrate on the chest x- ray suggestive of possible pneumonia. The patient feels fairly well. He does have a history of paroxysmal atrial fibrillation, in sinus rhythm with medications. REVIEW OF SYSTEMS: NEURO: Denies any headaches or dizziness. PSYCH: No anxiety. CARDIAC: No chest pain or angina or palpitations. RESPIRATORY: No shortness of breath. Has some cough and some mild hemoptysis. GI: No nausea, vomiting, abdominal pain, diarrhea, constipation, hematochezia, melena. : No symptoms of dysuria, hematuria or urgency. Does have some frequency. EXTREMITIES: No pain or edema. CONSTITUTIONAL: No fevers or chills. PHYSICAL EXAMINATION: Pleasant gentleman, at present in no distress. Vital signs reveal temperature 97.6, pulse 67, respirations 16, blood pressure 118/65, pulse ox 93% room air. HEENT: Normocephalic. Neck no JVD. CHEST: Clear to auscultation with a few dry crackles at the left base. CARDIAC: Sounds S1, S2 with no gallops. Regular rhythm. ABDOMEN: Soft. Bowel sounds present. EXTREMITIES: No edema. NEUROLOGIC: Awake, alert, oriented with well-coordinated movements. The patient does have some shotty lymph nodes in the cervical area. LABORATORY ASSESSMENT: None new. ASSESSMENT: 1. Possible left lower lobe pneumonia. 2. History of chronic lymphocytic leukemia. 3. History of possible transformation into lymphoma. 4. History of paroxysmal atrial fibrillation. PLAN: The patient at present is stable. Continue present medical regimen. Patient's condition discussed with the patient. Prognosis remains guarded. Potential discharge tomorrow if the patient remains afebrile. However, recheck CBC tomorrow. The patient is clinically is doing better. MMODL / IJN: [id number] /
--- NOTE | 2018-09-13 23:34 | P.PN ---
Subjective Progress Note Date: 09/13/18 The pt feels better overall. No f/c/n/v. He is tolerating PO. Cough is improved Objective - Vital Signs Vital signs: Vital Signs Temp 97.1 F L 09/13/18 20:58 Pulse 64 09/13/18 20:58 Resp 20 09/13/18 20:58 BP 124/83 09/13/18 20:58 Pulse Ox 94 L 09/13/18 11:28 Intake & Output 09/13/18 09/13/18 09/14/18 06:59 18:59 06:59 Intake Total 1989 150 Balance 1989 150 Weight 74.843 kg Intake: IV 1260 150 Sodium Chloride 0.9% 1, 1260 150 000 ml @ 50 mls/hr IV . Q20H [facility] Rx#:[id number] Intake, IV Titration 150 Amount Piperacillin-Tazobactam 3 100 .375 gm In Sodium Chloride 0.9% 100 ml @ 25 mls/hr IVPB Q8H [facility] Rx#: [id number] cefTRIAXone 1,000 mg In 50 Sodium Chloride 0.9% 50 ml @ 100 mls/hr IVPB Q12H [facility] Rx#:[id number] Oral 580 Other: Voiding Method Toilet Toilet # Voids 2 2 # Bowel Movements 1 - Constitutional General appearance: Present: no acute distress - EENT Eyes: Present: EOMI ENT: Present: hearing grossly normal, normal oropharynx - Respiratory Respiratory: left: rales (LLL) - Cardiovascular Rhythm: regular Heart sounds: normal: S1, S2 - Gastrointestinal General gastrointestinal: Present: normal bowel sounds, soft - Integumentary Integumentary: Present: normal - Neurologic Neurologic: Present: CNII-XII intact - Musculoskeletal Musculoskeletal: Present: strength equal bilaterally - Psychiatric Psychiatric: Present: A&O x's 3, appropriate affect - Labs CBC & Chem 7: 09/11/18 14:00 09/11/18 14:00 Labs: Abnormal Lab Results - Last 24 Hours (Table) 09/11/18 Range/Units 14:00 IgG 103.0 L (700.0-1600.0) mg/dL IgA <25.5 L (60.0-350.0) mg/dL Microbiology - Last 24 Hours (Table) 09/11/18 14:00 Blood Culture - Preliminary Blood No Growth after 48 hours 09/12/18 07:45 Gram Stain - Preliminary Sputum Assessment and Plan (1) Pneumonia Narrative/Plan: The pt is clinically improved significantly. Fever has resolved. Cultures are negative. Antibiotics per IM. OK to discharge from out standpoint, whenever OK with Dr Reaves Current Visit: Yes Status: Acute Code(s): J18.9 - PNEUMONIA, UNSPECIFIED ORGANISM SNOMED Code(s): 873143193 (2) Hypogammaglobulinemia Narrative/Plan: The pt received 1/2 dose of IVIg. Levels are pending. He will f/u as outpt, and receive additional doses if indicated ( depending on levels and frequency of recurrent infections) Current Visit: Yes Status: Acute Code(s): D80.1 - NONFAMILIAL HYPOGAMMAGLOBULINEMIA SNOMED Code(s): 399604741 (3) Chronic lymphocytic leukemia Narrative/Plan: Pt has not shown any evidence of progression. WBC /diff and adenopathy are stable. Resume f/u in the office as an outpt. Current Visit: Yes Status: Chronic Priority: Medium Code(s): C91.10 - CHRONIC LYMPHOCYTIC LEUK OF B-CELL TYPE NOT ACHIEVE REMIS SNOMED Code(s): 11966151
[2018-09-14] MEDS: PIPERACILLIN-TAZOBACTAM 3.375 GM in SODIUM CHLORIDE 0.9% 100 ML IVPB SCH ×2 (05:40→14:34)
[2018-09-14] MEDS: SODIUM CHLORIDE 0.9% 1,000 ML IV SCH (07:10)
[2018-09-14 08:41] LABS: Anion Gap 9 mmol/L; Blood Urea Nitrogen 9 mg/dL (9-20); Calcium 8.7 mg/dL (8.4-10.2); Carbon Dioxide 23 mmol/L (22-30); Chloride 107 mmol/L (98-107); Glucose 90 mg/dL (74-99); Potassium 3.4 mmol/L (3.5-5.1); Sodium 139 mmol/L (137-145)
[2018-09-14 08:45] LABS: HCT 32.9 % (39.0-53.0); HGB 10.7 gm/dL (13.0-17.5); MCH 28.7 pg (25.0-35.0); MCHC 32.4 g/dL (31.0-37.0); MCV 88.4 fL (80.0-100.0); Mean Platelet Volume 6.9; Platelet Count 178 k/uL (150-450); RBC 3.72 m/uL (4.30-5.90); RDW 13.8 % (11.5-15.5); WBC 7.9 k/uL (3.8-10.6)
[2018-09-14] MEDS: PROPAFENONE 225 MG TAB PO SCH ×2 (09:21→21:13)
[2018-09-14] MEDS: METOPROLOL TARTRATE 25 MG TAB PO SCH ×2 (09:22→21:13)
[2018-09-14 11:22] LABS: Lymphocytes # (M) 3.08 k/uL (1.0-4.8); Neutrophils # (M) 4.03 k/uL (1.3-7.7); Neutrophils % (M) 51 %; Nucleated Red Blood Cells 0 /100 WBC (0-0); Total Cells Counted 100
[2018-09-14] MEDS: POTASSIUM CHLORIDE ER 20 MEQ TAB.ER PO SCH ×3 (18:01→22:32)
--- NOTE | 2018-09-14 18:07 | PN ---
PROGRESS NOTE ATTENDING PHYSICIAN: Dr. Mane Reaves. CHIEF COMPLAINT: Re-evaluation. HISTORY OF PRESENT ILLNESS: This is an 78-year-old gentleman was admitted to the hospital with a fever, feeling nauseous. The patient has underlying history of chronic lymphocytic leukemia, possible lymphoma. He has been followed by the oncologist. The patient is doing better. Yesterday, he had a streak of blood in his sputum. Not purulent appearing and no significant hemoptysis. This has not recurred. The patient, however, during the night said he had 9 bowel movements which was watery and towards the end mildly formed. The patient denies any other symptoms. REVIEW OF SYSTEMS: Neuro: Denies any headaches or dizziness. Psych: No anxiety. Cardiac: No chest pain, angina or palpitations. Respiratory: Denies shortness of breath. Minimal cough. No hemoptysis. No significant sputum production. GI: No nausea, vomiting, abdominal pain. Had diarrhea. : No symptoms of dysuria, hematuria, urgency, frequency. EXTREMITIES: Denies pain, edema. Constitutional: No fever, chills. PHYSICAL EXAMINATION: Pleasant gentleman in no distress. Vital signs reveals temperature 97, pulse 67, respirations 18, blood pressure 137/71, pulse ox 91-95 percent on room air. HEENT: Normocephalic. NECK: Supple. No JVD. CHEST: Clear to auscultation and percussion. Cardiac: Normal S1, S2 with no gallops. Systolic murmur 2/6 left sternal border. Regular rate and rhythm. ABDOMEN: Soft. Bowel sounds present. Extremities reveal no edema. Neurological: Awake, alert, oriented with well-coordinated movements. LABORATORY ASSESSMENT: IgG 103, and IgA less than 25, IgM 50. ASSESSMENT: 1. Possible left lower lobe pneumonia. 2. Dehydration, improved. 3. History of paroxysmal atrial fibrillation. 4. History of chronic lymphocytic leukemia. 5. Possibility of lymphoma has not been ruled out. PLAN: Continue present medical regimen. Patient's condition discussed with the patient. The patient's sputum is growing normal bacteria. Will plan continue treatment, and we will discontinue the Zosyn and place patient on oral Levaquin and potential discharge will be planned for tomorrow. MMODL / IJN: [id number] /
--- NOTE | 2018-09-14 18:10 | P.PN ---
Subjective Progress Note Date: 09/14/18 Principal diagnosis: Hx lymphoma Pt seen in f/u, he feels well, eating and drinking, no fevers, cough, CIARA, diarrhea or swelling, he is ambulating in jacques, getting into shower independently Objective - Vital Signs Vital signs: Vital Signs Temp 97.0 F L 09/14/18 05:00 Pulse 67 09/14/18 05:00 Resp 18 09/14/18 05:00 BP 137/71 09/14/18 05:00 Pulse Ox 95 09/14/18 05:00 Intake & Output 09/13/18 09/14/18 09/14/18 18:59 06:59 18:59 Intake Total 550 50 Balance 550 50 Weight 74.843 kg Intake: IV 550 50 Sodium Chloride 0.9% 1, 550 50 000 ml @ 50 mls/hr IV . Q20H LIZZIE Rx#:[id number] Other: Voiding Method Toilet Toilet Toilet # Voids 2 3 - Exam WDWN, NAD, seen ambulating without distress. - Labs CBC & Chem 7: 09/14/18 07:45 09/14/18 07:45 Labs: Abnormal Lab Results - Last 24 Hours (Table) 09/14/18 09/14/18 Range/Units 07:45 07:45 RBC 3.72 L (4.30-5.90) m/uL Hgb 10.7 L (13.0-17.5) gm/dL Hct 32.9 L (39.0-53.0) % Potassium 3.4 L (3.5-5.1) mmol/L Microbiology - Last 24 Hours (Table) 09/11/18 14:00 Blood Culture - Preliminary Blood No Growth after 72 hours 09/12/18 07:45 Gram Stain - Final Sputum Sputum Culture - Final Assessment and Plan (1) Chronic lymphocytic leukemia Narrative/Plan: Pt has been treated multiple times in the past for recurrences of disease, most recent f/u showed stable disease-pt does have persistent lymphadenopathy in the abd. Pt will cont f/u Current Visit: Yes Status: Chronic Priority: Medium Code(s): C91.10 - CHRONIC LYMPHOCYTIC LEUK OF B-CELL TYPE NOT ACHIEVE REMIS SNOMED Code(s): 72214435 (2) Ileus Current Visit: Yes Status: Resolved Priority: Low Code(s): K56.7 - ILEUS, UNSPECIFIED SNOMED Code(s): 608088328 (3) Sepsis Current Visit: Yes Status: Resolved Priority: High Code(s): A41.9 - SEPSIS , UNSPECIFIED ORGANISM SNOMED Code(s): 60466608 (4) Hypogammaglobulinemia Narrative/Plan: IVIg given. Pt will f/u outpatient and have Ig levels monitored with infusions as needed. Current Visit: Yes Status: Chronic Priority: Medium Code(s): D80.1 - NONFAMILIAL HYPOGAMMAGLOBULINEMIA SNOMED Code(s): 451240002 (5) Generalized weakness Narrative/Plan: Improving with treatment of suspected sepsis Current Visit: Yes Status: Acute Priority: Medium Code(s): R53.1 - WEAKNESS SNOMED Code(s): 98066504
[2018-09-14] MEDS: ATORVASTATIN 20 MG TAB PO SCH (21:13)
[2018-09-14] MEDS: CEPHALEXIN 500 MG CAP PO SCH (22:32)
[2018-09-15] MEDS: SODIUM CHLORIDE 0.9% 1,000 ML IV SCH (04:31)
[2018-09-15 05:18] VITALS: TEMP 97.8
[2018-09-15 09:01] VITALS: BP 125/72
[2018-09-15] MEDS: CEPHALEXIN 500 MG CAP PO SCH (09:36)
[2018-09-15] MEDS: METOPROLOL TARTRATE 25 MG TAB PO SCH (09:36)
[2018-09-15] MEDS: PROPAFENONE 225 MG TAB PO SCH (09:36)
[2018-09-15 09:41] VITALS: PULSE 74; RESP 18
--- NOTE | 2018-09-20 11:52 | CDI ---
Documentation Clarification Form Date: 09/20/2018 11:44:19 AM From: Jenniffer Austin Phone: If questions call Trang Moncada at Admit Date: 09/11/2018 3:37:00 PM Patient Name: Alexy Lee Visit Number: [id number] Discharge Date: 09/15/2018 ATTENTION: The Clinical Documentation Specialists (CDI) and [facility] Coding Staff appreciate your assistance in clarifying documentation. Please respond to the clarification below the line at the bottom and electronically sign. The CDI & [facility] Coding staff will review the response and follow-up if needed. Please note: Queries are made part of the Legal Health Record. If you have any questions, please contact the author of this message via ITS. Escobar Lowery MD Possible/Rule out Pneumonia was documented in your progress notes on 09/12 thru 09/14. Bronchitis was documented on your progress note on 09/12. CT scan done 2 days prior basically suggest most likely bronchitis with some nodularities there. History/Risk Factors: Patient stated that he was started on azithromycin 1 month ago for bronchitis WBC/Left shift: On admission 09/11 WBC 16.1, 09/14 7.9 Chest X-ray: 09/11 Left lower lobe pneumonia. 09/12 Persistent Left lower lobe infiltrate stable in appearance Lung/Breathing assessment: Coughing, Some sputum production, chest was aerated bilaterally with decreased dullness on the left lower lung base in percussion and decreased air entry on auscultation Antibiotics: Zosyn IV piggyback O2: 2L nasal cannula In your professional opinion, please clarify if these findings signify one or more of the following conditions, whether the condition is POA, and cause, if known: Pneumonia Pneumonia, ruled out Acute Bronchitis Chronic Bronchitis Bronchitis, ruled out Unable to determine MTDD
--- NOTE | 2018-09-26 19:58 | P.DS ---
Providers Date of admission: 09/11/18 15:37 Attending physician: Escobar Reaves Consults: 09/11/18 15:46 Consult Physician Stat Consulting Provider: Moiz Hernandez Consult Reason/Comments: Pneumonia, Sepsis, Lymphnode progression CT Do you want consulting provider notified?: Yes Primary care physician: Escobar Reaves Hospital Course: This 78-year-old gentleman was admitted to the hospital with complaints of nausea and noted a temperature 101 in the emergency room. He also has a cough and a chest x-ray suggestive of possible pneumonia left lower lobe. The patient has had repeated infections due to his leukemia. The patient's not on any chemotherapy at present. He also has underlying history of paroxysmal atrial fibrillation not on any coagulation as his episodes are rare and had only occurred during the septic process. he does follow with the senior policy associate. History of coronary artery disease stable. Following admission patient is started on antibiotics. He has previously has had strep pneumonia bacteremia. He has been adequately vaccinated for pneumococcal bacteria. Patient responded well to antibiotics hydration. His blood pressure was in the low side and his Lopressor dosage was decreased. Patient was seen by oncology. Patient stable at the time of discharge. The oncologist might give patient IV Ig infusions on the outpatient. There is a possibility patient may be converting to versus lymphoma. He is under observation and closely monitored for that by the oncologist Final diagnosis to include 1. Pneumonia present at admission 2. Chronic lymphocytic leukemia 3. Paroxysmal atrial fibrillation 4. Coronary artery disease 5. Intra-abdominal lymphadenopathy. Patient Condition at Discharge: Stable Plan - Discharge Summary New Discharge Prescriptions: New Cephalexin [Keflex] 500 mg PO TID #30 cap Acetaminophen Tab [Tylenol] 650 mg PO Q6HR PRN tab PRN Reason: Fever And/ Or Pain Continue Propafenone [Rythmol] 225 mg PO BID Metoprolol Tartrate [Lopressor] 50 mg PO BID tab Simvastatin [Zocor] 40 mg PO HS Discontinued amLODIPine [Norvasc] 2.5 mg PO DAILY Discharge Medication List Propafenone [Rythmol] 225 mg PO BID 12/04/15 [History] Metoprolol Tartrate [Lopressor] 50 mg PO BID tab 07/24/16 [Rx] Simvastatin [Zocor] 40 mg PO HS 01/23/18 [History] Acetaminophen Tab [Tylenol] 650 mg PO Q6HR PRN tab 09/15/18 [Rx] Cephalexin [Keflex] 500 mg PO TID #30 cap 09/15/18 [Rx] Follow up Appointment(s)/Referral(s): Moiz Hernandez MD [STAFF PHYSICIAN] - 09/27/18 3:45 pm Escobar Reaves MD [Primary Care Provider] - 09/20/18 11:30 am Patient Instructions/Handouts: Cephalexin (By mouth), Sepsis (GEN), Weakness ( DC), Pneumonia (DC), Chronic Lymphocytic Leukemia (DC) Discharge Disposition: HOME SELF-CARE
== END 2018-09-15 10:05 | disposition home or self-care (01) | DRG 194 ==
LOC: EC 13:26 → 3NMEDONC 15:37
PROVIDERS: ADMIT Internal Medicine; ATTEND Internal Medicine
DX: J18.1 Lobar pneumonia, unspecified organism (principal); K56.7 Ileus, unspecified; C91.10 Chronic lymphocytic leukemia of B-cell type not having achieved remission; E87.1 Hypo-osmolality and hyponatremia; I44.0 Atrioventricular block, first degree; E78.5 Hyperlipidemia, unspecified; F32.9 Major depressive disorder, single episode, unspecified; I48.0 Paroxysmal atrial fibrillation; E86.0 Dehydration; I10 Essential (primary) hypertension; I25.2 Old myocardial infarction; Z87.891 Personal history of nicotine dependence; Z87.01 Personal history of pneumonia (recurrent); Z86.73 Personal history of transient ischemic attack (TIA), and cerebral infarction without residual deficits; Z82.49 Family history of ischemic heart disease and other diseases of the circulatory system; Z85.828 Personal history of other malignant neoplasm of skin; Z98.49 Cataract extraction status, unspecified eye; Z98.890 Other specified postprocedural states; Z79.899 Other long term (current) drug therapy
CPT/HCPCS: 36415; 71046; 74018; 80048; 80053; 81003; 82150; 82784; 83605; 83690; 84484; 85025; 87040; 87070; 87205; 93005; 94640; 96361; 96365; 96375; 99285

== ENCOUNTER 2018-12-15 07:13 | Emergency (ER) | payer MEDICARE, BC ==
[2018-12-15 07:20] VITALS: TEMP 98.2
[2018-12-15] MEDS ORDERED: IPRATROPIUM-ALBUTEROL 3 ML NEB INHALATION STA (07:49)
[2018-12-15] MEDS ORDERED: SODIUM CHLORIDE 0.9% 1,000 ML IV STA (07:49)
[2018-12-15] MEDS ORDERED: SODIUM CHLORIDE 0.9% 500 ML 500 ML IV STA (07:49)
[2018-12-15] MEDS ORDERED: methylPREDNISolone SOD SUCCI 125 MG/2 ML VIAL IV STA (07:49)
--- NOTE | 2018-12-15 07:50 | ED ---
SOB HPI - General Chief Complaint: Shortness of Breath Stated Complaint: CIARA Time Seen by Provider: 12/15/18 07:21 Source: patient Mode of arrival: wheelchair Limitations: no limitations - History of Present Illness Initial Comments: This is an 78-year-old male to the ER for evaluation. Patient does say for evaluation regards to weakness not feeling well history of leukemia. Patient concern of patient's blood counts and possible infection possible pneumonia. No fevers, no significant cough. No travel history no known sick contacts. MD Complaint: shortness of breath, cough -: days(s) Radiation: other Severity scale (1-10): 3 Quality: other (no pain, weakness present) Consistency: constant Improves With: nothing Worsens With: nothing Known History Of: recurrent pneumonia Context: recent illness Associated Symptoms: fever, cough - Related Data Home Medications Medication Instructions Recorded Confirmed RX: Propafenone [Rythmol] 225 mg PO BID 12/04/15 12/15/18 RX: Simvastatin [Zocor] 40 mg PO HS 01/23/18 12/15/18 Metoprolol Tartrate [Lopressor] 25 mg PO BID 12/15/18 12/15/18 Allergies Allergy/AdvReac Type Severity Reaction Status Date / Time No Known Allergies Allergy Verified 12/15/18 07:28 Review of Systems ROS Statement: Those systems with pertinent positive or pertinent negative responses have been documented in the HPI. ROS Other: All systems not noted in ROS Statement are negative. Past Medical History Past Medical History: Atrial Fibrillation, Cancer, Hyperlipidemia, Hypertension , Myocardial Infarction ([place]), Pneumonia Additional Past Medical History / Comment(s): arrhythmia was previuosly charted but pt denies this, chronic lymphocytic leukemia pt stated had last chemo on , inguinal hernia, hx skin cancer, nstemi 07-12-16 per summary-pt not aware of this. had shigelles vaccine 2011 and in 2012 got a case of the shingelles. 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 murmur."stroke behind lt eye" Last Myocardial Infarction Date:: 1997 History of Any Multi-Drug Resistant Organisms: None Reported Past Surgical History: Hernia Repair, Orthopedic Surgery, Tonsillectomy Additional Past Surgical History / Comment(s): bilateral rotator cuffs, cataracts, umb hernia repair, rt axilla lymph node bx.colonscopy Past Anesthesia/Blood Transfusion Reactions: No Reported Reaction Additional Past Anesthesia/Blood Transfusion Reaction / Comment(s): clausterphobia. had blood transfusion- no reaction Past Psychological History: No Psychological Hx Reported Smoking Status: Former smoker Past Alcohol Use History: None Reported Past Drug Use History: None Reported - Past Family History Mother Family Medical History: No Reported History Additional Family Medical History / Comment(s): pt stated his mom was healthy never went to the dr. dropped at age 70 Father Family Medical History: Congestive Heart Failure (CHF), Myocardial Infarction ( [place]), Vascular Disorder Additional Family Medical History / Comment(s): at age 75. hx heavy smoker General Exam Limitations: no limitations General appearance: alert, in no apparent distress Head exam: Present: atraumatic, normocephalic, normal inspection Eye exam: Present: normal appearance, PERRL, EOMI. Absent: scleral icterus, conjunctival injection, periorbital swelling ENT exam: Present: normal exam, mucous membranes moist Neck exam: Present: normal inspection. Absent: tenderness, meningismus, lymphadenopathy Respiratory exam: Present: normal lung sounds bilaterally. Absent: respiratory distress, wheezes, rales, rhonchi, stridor Cardiovascular Exam: Present: regular rate, normal rhythm, normal heart sounds. Absent: systolic murmur, diastolic murmur, rubs, gallop, clicks GI/Abdominal exam: Present: soft, normal bowel sounds. Absent: distended, tenderness, guarding, rebound, rigid Extremities exam: Present: normal inspection, full ROM, normal capillary refill. Absent: tenderness, pedal edema, joint swelling, calf tenderness Back exam: Present: normal inspection Neurological exam: Present: alert, oriented X3, CN II-XII intact Psychiatric exam: Present: normal affect, normal mood Skin exam: Present: warm, dry, intact, normal color. Absent: rash Course Vital Signs 12/15/18 12/15/18 12/15/18 07:16 08:07 08:16 Temperature 98.2 F Pulse Rate 77 89 92 Respiratory 20 Rate Blood Pressure 136/75 O2 Sat by Pulse 94 L Oximetry - Reevaluation(s) Reevaluation #1: 12/15/18 11:39 medical record is reviewed Reevaluation #2: 12/15/18 11:39 patient is without complaint Medical Decision Making - Medical Decision Making 78 male the ER for evaluation. Patient presents today for evaluation regards to weakness not feeling well. Lab values are within patient's normal, x-ray fluids negative urine negative. Patient can be discharged home - Lab Data Result diagrams: 12/15/18 07:41 12/15/18 07:41 Lab Results 12/15/18 12/15/18 12/15/18 Range/Units 07:41 07:41 07:41 WBC 22.9 H (3.8-10.6) k/uL RBC 4.35 (4.30-5.90) m/uL Hgb 12.8 L (13.0-17.5) gm/dL Hct 39.0 (39.0-53.0) % MCV 89.7 (80.0-100.0) fL MCH 29.5 (25.0-35.0) pg MCHC 32.9 (31.0-37.0) g/dL RDW 13.9 (11.5-15.5) % Plt Count 167 (150-450) k/uL Neutrophils % (Manual) 40 % Band Neutrophils % 1 % Lymphocytes % (Manual) 54 % Monocytes % (Manual) 6 % Neutrophils # (Manual) 9.30 H (1.3-7.7) k/uL Lymphocytes # (Manual) 12.37 H (1.0-4.8) k/uL Monocytes # (Manual) 1.37 H (0-1.0) k/uL Nucleated RBCs 0 (0-0) /100 WBC Manual Slide Review Performed Toxic Granulation Present RBC Morphology Normal PT (9.0-12.0) sec INR (<1.2) APTT (22.0-30.0) sec Sodium 137 (137-145) mmol/L Potassium 3.6 (3.5-5.1) mmol/L Chloride 100 (98-107) mmol/L Carbon Dioxide 25 (22-30) mmol/L Anion Gap 12 mmol/L BUN 24 H (9-20) mg/dL Creatinine 0.83 (0.66-1.25) mg/dL Est GFR (CKD-EPI)AfAm >90 (>60 ml/min/1.73 sqM) Est GFR (CKD-EPI)NonAf 83 (>60 ml/min/1.73 sqM) Glucose 112 H (74-99) mg/dL Calcium 8.9 (8.4-10.2) mg/dL Magnesium 2.2 (1.6-2.3) mg/dL Total Bilirubin 2.1 H (0.2-1.3) mg/dL AST 159 H (17-59) U/L ALT 134 H (21-72) U/L Alkaline Phosphatase 195 H (38-126) U/L Total Creatine Kinase <20 L (55-170) U/L CK-MB (CK-2) 0.4 (0.0-2.4) ng/mL CK-MB (CK-2) Rel Index Troponin I <0.012 (0.000-0.034) ng/mL NT-Pro-B Natriuret Pep pg/mL Total Protein 5.7 L (6.3-8.2) g/dL Albumin 3.4 L (3.5-5.0) g/dL Urine Color Urine Appearance (Clear) Urine pH (5.0-8.0) Ur Specific [place] (1.001-1.035) Urine Protein (Negative) Urine Glucose (UA) (Negative) Urine Ketones (Negative) Urine Blood (Negative) Urine Nitrite (Negative) Urine Bilirubin (Negative) Urine Urobilinogen (<2.0) mg/dL Ur Leukocyte Esterase (Negative) Influenza Type A RNA (Not Detectd) Influenza Type B (PCR) (Not Detectd) 12/15/18 12/15/18 12/15/18 Range/Units 07:41 07:41 09:16 WBC (3.8-10.6) k/uL RBC (4.30-5.90) m/uL Hgb (13.0-17.5) gm/dL Hct (39.0-53.0) % MCV (80.0-100.0) fL MCH (25.0-35.0) pg MCHC (31.0-37.0) g/dL RDW (11.5-15.5) % Plt Count (150-450) k/uL Neutrophils % (Manual) % Band Neutrophils % % Lymphocytes % (Manual) % Monocytes % (Manual) % Neutrophils # (Manual) (1.3-7.7) k/uL Lymphocytes # (Manual) (1.0-4.8) k/uL Monocytes # (Manual) (0-1.0) k/uL Nucleated RBCs (0-0) /100 WBC Manual Slide Review Toxic Granulation RBC Morphology PT 11.1 (9.0-12.0) sec INR 1.0 (<1.2) APTT 23.3 (22.0-30.0) sec Sodium (137-145) mmol/L Potassium (3.5-5.1) mmol/L Chloride (98-107) mmol/L Carbon Dioxide (22-30) mmol/L Anion Gap mmol/L BUN (9-20) mg/dL Creatinine (0.66-1.25) mg/dL Est GFR (CKD-EPI)AfAm (>60 ml/min/1.73 sqM) Est GFR (CKD-EPI)NonAf (>60 ml/min/1.73 sqM) Glucose (74-99) mg/dL Calcium (8.4-10.2) mg/dL Magnesium (1.6-2.3) mg/dL Total Bilirubin (0.2-1.3) mg/dL AST (17-59) U/L ALT (21-72) U/L Alkaline Phosphatase (38-126) U/L Total Creatine Kinase (55-170) U/L CK-MB (CK-2) (0.0-2.4) ng/mL CK-MB (CK-2) Rel Index Troponin I (0.000-0.034) ng/mL NT-Pro-B Natriuret Pep 1010 pg/mL Total Protein (6.3-8.2) g/dL Albumin (3.5-5.0) g/dL Urine Color Urine Appearance (Clear) Urine pH (5.0-8.0) Ur Specific [place] (1.001-1.035) Urine Protein (Negative) Urine Glucose (UA) (Negative) Urine Ketones (Negative) Urine Blood (Negative) Urine Nitrite (Negative) Urine Bilirubin (Negative) Urine Urobilinogen (<2.0) mg/dL Ur Leukocyte Esterase (Negative) Influenza Type A RNA Not Detected (Not Detectd) Influenza Type B (PCR) Not Detected (Not Detectd) 12/15/18 Range/Units 11:13 WBC (3.8-10.6) k/uL RBC (4.30-5.90) m/uL Hgb (13.0-17.5) gm/dL Hct (39.0-53.0) % MCV (80.0-100.0) fL MCH (25.0-35.0) pg MCHC (31.0-37.0) g/dL RDW (11.5-15.5) % Plt Count (150-450) k/uL Neutrophils % (Manual) % Band Neutrophils % % Lymphocytes % (Manual) % Monocytes % (Manual) % Neutrophils # (Manual) (1.3-7.7) k/uL Lymphocytes # (Manual) (1.0-4.8) k/uL Monocytes # (Manual) (0-1.0) k/uL Nucleated RBCs (0-0) /100 WBC Manual Slide Review Toxic Granulation RBC Morphology PT (9.0-12.0) sec INR (<1.2) APTT (22.0-30.0) sec Sodium (137-145) mmol/L Potassium (3.5-5.1) mmol/L Chloride (98-107) mmol/L Carbon Dioxide (22-30) mmol/L Anion Gap mmol/L BUN (9-20) mg/dL Creatinine (0.66-1.25) mg/dL Est GFR (CKD-EPI)AfAm (>60 ml/min/1.73 sqM) Est GFR (CKD-EPI)NonAf (>60 ml/min/1.73 sqM) Glucose (74-99) mg/dL Calcium (8.4-10.2) mg/dL Magnesium (1.6-2.3) mg/dL Total Bilirubin (0.2-1.3) mg/dL AST (17-59) U/L ALT (21-72) U/L Alkaline Phosphatase (38-126) U/L Total Creatine Kinase (55-170) U/L CK-MB (CK-2) (0.0-2.4) ng/mL CK-MB (CK-2) Rel Index Troponin I (0.000-0.034) ng/mL NT-Pro-B Natriuret Pep pg/mL Total Protein (6.3-8.2) g/dL Albumin (3.5-5.0) g/dL Urine Color Yellow Urine Appearance Clear (Clear) Urine pH 5.5 (5.0-8.0) Ur Specific [place] 1.012 (1.001-1.035) Urine Protein Trace H (Negative) Urine Glucose (UA) Negative (Negative) Urine Ketones 1+ H (Negative) Urine Blood Negative (Negative) Urine Nitrite Negative (Negative) Urine Bilirubin Negative (Negative) Urine Urobilinogen <2.0 (<2.0) mg/dL Ur Leukocyte Esterase Negative (Negative) Influenza Type A RNA (Not Detectd) Influenza Type B (PCR) (Not Detectd) - EKG Data -: EKG Interpreted by Me (EKG shows sinus rhythm rate of 96, MN 170, QRS 82, QTc 462) - Radiology Data Radiology results: report reviewed (Chest x-rays negative for acute disease), image reviewed Disposition Clinical Impression: Weakness, Chronic lymphocytic leukemia Disposition: HOME SELF-CARE Condition: Good Instructions (If sedation given, give patient instructions): Weakness (ED) Is patient prescribed a controlled substance at d/c from ED?: No Referrals: Escobar Reaves MD [Primary Care Provider] - 1-2 days
[2018-12-15 08:05] LABS: HGB 12.8 gm/dL (13.0-17.5); MCH 29.5 pg (25.0-35.0); MCHC 32.9 g/dL (31.0-37.0); MCV 89.7 fL (80.0-100.0); Mean Platelet Volume 6.9; Platelet Count 167 k/uL (150-450); RBC 4.35 m/uL (4.30-5.90); RDW 13.9 % (11.5-15.5); WBC 22.9 k/uL (3.8-10.6)
[2018-12-15 08:16] LABS: Partial Thromboplastin Time 23.3 sec (22.0-30.0); Prothrombin Time 11.1 sec (9.0-12.0)
[2018-12-15 08:18] LABS: ALT 134 U/L (21-72); AST 159 U/L (17-59); Albumin 3.4 g/dL (3.5-5.0); Alkaline Phosphatase 195 U/L (38-126); Anion Gap 12 mmol/L; Blood Urea Nitrogen 24 mg/dL (9-20); Calcium 8.9 mg/dL (8.4-10.2); Carbon Dioxide 25 mmol/L (22-30); Chloride 100 mmol/L (98-107); Glucose 112 mg/dL (74-99); Magnesium 2.2 mg/dL (1.6-2.3); Potassium 3.6 mmol/L (3.5-5.1); Sodium 137 mmol/L (137-145); Total Bilirubin 2.1 mg/dL (0.2-1.3); Total Protein 5.7 g/dL (6.3-8.2)
[2018-12-15 08:32] LABS: Creatine Kinase <20 U/L (55-170)
--- NOTE | 2018-12-15 08:37 | XR ---
EXAMINATION TYPE: XR chest 2V DATE OF EXAM: 12/15/2018 COMPARISON: Prior chest x-ray 09/12/2018 HISTORY: Difficulty breathing TECHNIQUE: Frontal and lateral views of the chest are obtained. FINDINGS: There are cardiac leads present. The abnormal increased density at the left lung base has i mproved, some residual patchy density is noted. There is no pleural effusion or pneumothorax seen. T he cardiac silhouette size is within normal limits. There are coronary artery calcifications. The os seous structures are intact. Aorta is dense. IMPRESSION: Interval improvement in aeration. Residual basilar increased density is noted, correlate for pneumonia versus atelectasis, follow-up recommended.
[2018-12-15 08:45] LABS: Creatine Kinase MB 0.4 ng/mL (0.0-2.4); Troponin I <0.012 ng/mL (0.000-0.034)
[2018-12-15 09:08] LABS: Band Neutrophils % 1 %; Lymphocytes # (M) 12.37 k/uL (1.0-4.8); Monocytes # (M) 1.37 k/uL (0-1.0); Neutrophils % (M) 40 %; Nucleated Red Blood Cells 0 /100 WBC (0-0); Total Cells Counted 200
[2018-12-15 09:11] LABS: Toxic Granulation Present
--- NOTE | 2018-12-15 10:06 | US ---
EXAMINATION TYPE: US gallbladder DATE OF EXAM: 12/15/2018 COMPARISON: CT 08/2018 CLINICAL HISTORY: Pain. elevated LFT's. Patient has leukemia. EXAM MEASUREMENTS: Liver Length: 15.3 cm Gallbladder Wall: 0.2 cm CBD: 0.5 cm Right Kidney: 13.3 x 4.9 x 5.3 cm Extensive nodes noted throughout midline. Pancreas: not well visualized due to extensive nodes seen throughout midline Liver: wnl Gallbladder: multiple small mobile stones with shadowing. Evidence for sonographic Bethea's sign: No CBD: wnl Right Kidney: hypoechoic area off of upper pole measures 2.8 x 2.2 x 2.1 cm. IMPRESSION: Findings compatible with patient's diagnosis of CLL. Technologist reports some limitation s the exam. Cholelithiasis. Probable simple cyst upper pole right kidney.
[2018-12-15 11:34] LABS: Appearance,Urine Clear (Clear); Bilirubin,Urine Negative (Negative); Blood,Urine Negative (Negative); Color,Urine Yellow; Glucose,Urine (UA) Negative (Negative); Ketones,Urine 1+ (Negative); Leukocyte Esterase,Urine Negative (Negative); Nitrite,Urine Negative (Negative); PH, Urine 5.5 (5.0-8.0); Protein,Urine Trace (Negative); Specific Gravity,Urine 1.012 (1.001-1.035); Urobilinogen,Urine <2.0 mg/dL (<2.0)
[2018-12-15 12:16] VITALS: BP 114/78; PULSE 105; RESP 16
--- NOTE | 2018-12-17 12:13 | P.PN ---
Progress Note - Text The patient is an 78-year-old patient of Dr. Lius for whom I am covering. Patient does have chronic lymphocytic leukemia. Patient presented with strep pneumoniae sepsis related to strep pneumonia. Patient had positive blood cultures. Patient has been under treatment initially with Rocephin and now vancomycin as per infectious disease. This morning he is standing up in his room and feels somewhat better. States his cough has decreased. No chest pain or unusual shortness of breath. Vital signs show a temperature 97.9 with a pulse 66 and respirations 18. Blood pressure 131/72 and he is 94% saturated. Lung and heart examination is clear and regular. No edema. No neurological deficits. No new labs this morning. Repeat blood cultures were done yesterday and appear to still be positive for gram-positive cocci. Although final report is pending. Impression and plans Strep pneumoniae sepsis from strep pneumonia with underlying chronic lymphocytic leukemia. Continue with antibiotics per infectious disease. Further recommendations pending repeat cultures and clinical response. Discussed with patient at bedside this morning.
== END 2018-12-15 12:15 | disposition home or self-care (01) ==
LOC: EC 07:13
DX: R53.1 Weakness (principal); C91.10 Chronic lymphocytic leukemia of B-cell type not having achieved remission; R05 Cough; R06.02 Shortness of breath; I48.91 Unspecified atrial fibrillation; E78.5 Hyperlipidemia, unspecified; I10 Essential (primary) hypertension; I25.2 Old myocardial infarction; Z86.73 Personal history of transient ischemic attack (TIA), and cerebral infarction without residual deficits; Z85.828 Personal history of other malignant neoplasm of skin; Z87.891 Personal history of nicotine dependence; Z79.899 Other long term (current) drug therapy
CPT/HCPCS: 99285; 96374; 96361; 36415; 94640; 93005; 83880; 80053; 82550; 82553; 83735; 84484; 85025; 85610; 85730; 81003; 87040; 87086; 87502; 71046; 76705; J2930

== ENCOUNTER 2018-12-16 10:33 | Inpatient (IN) | payer MEDICARE, BC ==
[2018-12-16] MEDS ORDERED: SODIUM CHLORIDE 0.9% 500 ML 500 ML IV STA (10:47)
[2018-12-16] MEDS ORDERED: SODIUM CHLORIDE 0.9% 1,000 ML IV STA ×2 (10:47)
[2018-12-16] MEDS: SODIUM CHLORIDE 0.9% 1,000 ML IV SCH ×2 (11:27→17:32)
--- NOTE | 2018-12-16 11:37 | ED ---
Recheck HPI - General Chief Complaint: Recheck/Abnormal Lab/Rx Stated Complaint: ABNORMAL LABS Time Seen by Provider: 12/16/18 10:43 Source: patient Mode of arrival: ambulatory Limitations: no limitations - History of Present Illness Complaint: abnormal lab (strep pneumonia bacteremia) -: days(s) Initial Visit For: other (weakness) Returns Today for: Called Because of Abnormal Lab/Test Symptoms Since Prior Visit: no new symptoms Context: called for abnormal lab result Associated Symptoms: fever, chills - Related Data Home Medications Medication Instructions Recorded Confirmed Propafenone [Rythmol] 225 mg PO BID 12/04/15 12/16/18 Simvastatin [Zocor] 40 mg PO HS 01/23/18 12/16/18 Metoprolol Tartrate [Lopressor] 25 mg PO BID 12/15/18 12/16/18 Allergies Allergy/AdvReac Type Severity Reaction Status Date / Time No Known Allergies Allergy Verified 12/16/18 11:33 Review of Systems ROS Statement: Those systems with pertinent positive or pertinent negative responses have been documented in the HPI. ROS Other: All systems not noted in ROS Statement are negative. Past Medical History Past Medical History: Atrial Fibrillation, Cancer, Hyperlipidemia, Hypertension , Myocardial Infarction ([place]), Pneumonia Additional Past Medical History / Comment(s): arrhythmia was previuosly charted but pt denies this, chronic lymphocytic leukemia pt stated had last chemo on , inguinal hernia, hx skin cancer, nstemi 07-12-16 per summary-pt not aware of this. had shigelles vaccine 2011 and in 2012 got a case of the shingelles. 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 murmur."stroke behind lt eye" Last Myocardial Infarction Date:: 1997 History of Any Multi-Drug Resistant Organisms: None Reported Past Surgical History: Hernia Repair, Orthopedic Surgery, Tonsillectomy Additional Past Surgical History / Comment(s): bilateral rotator cuffs, cataracts, umb hernia repair, rt axilla lymph node bx.colonscopy Past Anesthesia/Blood Transfusion Reactions: No Reported Reaction Additional Past Anesthesia/Blood Transfusion Reaction / Comment(s): clausterphobia. had blood transfusion- no reaction Past Psychological History: No Psychological Hx Reported Smoking Status: Former smoker Past Alcohol Use History: None Reported Past Drug Use History: None Reported - Past Family History Mother Family Medical History: No Reported History Additional Family Medical History / Comment(s): pt stated his mom was healthy never went to the dr. dropped at age 70 Father Family Medical History: Congestive Heart Failure (CHF), Myocardial Infarction ( [place]), Vascular Disorder Additional Family Medical History / Comment(s): at age 75. hx heavy smoker General Exam Limitations: no limitations General appearance: alert, in no apparent distress Head exam: Present: atraumatic, normocephalic, normal inspection Eye exam: Present: normal appearance, PERRL, EOMI. Absent: scleral icterus, conjunctival injection, periorbital swelling ENT exam: Present: normal exam, mucous membranes moist Neck exam: Present: normal inspection. Absent: tenderness, meningismus, lymphadenopathy Respiratory exam: Present: normal lung sounds bilaterally. Absent: respiratory distress, wheezes, rales, rhonchi, stridor Cardiovascular Exam: Present: regular rate, normal rhythm, normal heart sounds. Absent: systolic murmur, diastolic murmur, rubs, gallop, clicks GI/Abdominal exam: Present: soft, normal bowel sounds. Absent: distended, tenderness, guarding, rebound, rigid Extremities exam: Present: normal inspection, full ROM, normal capillary refill. Absent: tenderness, pedal edema, joint swelling, calf tenderness Back exam: Present: normal inspection Neurological exam: Present: alert, oriented X3, CN II-XII intact Psychiatric exam: Present: normal affect, normal mood Skin exam: Present: warm, dry, intact, normal color. Absent: rash Course Vital Signs 12/16/18 10:43 Temperature 98 F Pulse Rate 83 Respiratory 18 Rate Blood Pressure 112/70 O2 Sat by Pulse 96 Oximetry Medical Decision Making - Medical Decision Making 78-year-old male the ER for evaluation, patient had positive blood cultures, strep pneumonia, patient was placed on Rocephin awaiting culture and sensitivity. - Lab Data Result diagrams: 12/16/18 11:37 12/16/18 11:37 Lab Results 12/16/18 12/16/18 12/16/18 Range/Units 11:37 11:37 11:37 WBC 28.7 H (3.8-10.6) k/uL RBC 4.08 L (4.30-5.90) m/uL Hgb 11.8 L (13.0-17.5) gm/dL Hct 36.8 L (39.0-53.0) % MCV 90.3 (80.0-100.0) fL MCH 28.9 (25.0-35.0) pg MCHC 32.0 (31.0-37.0) g/dL RDW 14.1 (11.5-15.5) % Plt Count 182 (150-450) k/uL PT (9.0-12.0) sec INR (<1.2) APTT (22.0-30.0) sec Sodium 136 L (137-145) mmol/L Potassium 4.0 (3.5-5.1) mmol/L Chloride 99 (98-107) mmol/L Carbon Dioxide 26 (22-30) mmol/L Anion Gap 11 mmol/L BUN 23 H (9-20) mg/dL Creatinine 0.77 (0.66-1.25) mg/dL Est GFR (CKD-EPI)AfAm >90 (>60 ml/min/1.73 sqM) Est GFR (CKD-EPI)NonAf 86 (>60 ml/min/1.73 sqM) Glucose 113 H (74-99) mg/dL Plasma Lactic Acid Ovidio 2.1 H* (0.7-2.0) mmol/L Calcium 8.8 (8.4-10.2) mg/dL Phosphorus 3.4 (2.5-4.5) mg/dL Magnesium 2.2 (1.6-2.3) mg/dL Total Bilirubin 1.6 H (0.2-1.3) mg/dL AST 136 H (17-59) U/L ALT 139 H (21-72) U/L Alkaline Phosphatase 170 H (38-126) U/L Total Protein 5.6 L (6.3-8.2) g/dL Albumin 3.2 L (3.5-5.0) g/dL Urine Color Urine Appearance (Clear) Urine pH (5.0-8.0) Ur Specific D[place]edom (1.001-1.035) Urine Protein (Negative) Urine Glucose (UA) (Negative) Urine Ketones (Negative) Urine Blood (Negative) Urine Nitrite (Negative) Urine Bilirubin (Negative) Urine Urobilinogen (<2.0) mg/dL Ur Leukocyte Esterase (Negative) Urine RBC (0-5) /hpf Urine WBC (0-5) /hpf Urine Bacteria (None) /hpf Urine Mucus (None) /hpf 12/16/18 12/16/18 Range/Units 11:37 11:37 WBC (3.8-10.6) k/uL RBC (4.30-5.90) m/uL Hgb (13.0-17.5) gm/dL Hct (39.0-53.0) % MCV (80.0-100.0) fL MCH (25.0-35.0) pg MCHC (31.0-37.0) g/dL RDW (11.5-15.5) % Plt Count (150-450) k/uL PT 11.0 (9.0-12.0) sec INR 1.0 (<1.2) APTT 23.1 (22.0-30.0) sec Sodium (137-145) mmol/L Potassium (3.5-5.1) mmol/L Chloride (98-107) mmol/L Carbon Dioxide (22-30) mmol/L Anion Gap mmol/L BUN (9-20) mg/dL Creatinine (0.66-1.25) mg/dL Est GFR (CKD-EPI)AfAm (>60 ml/min/1.73 sqM) Est GFR (CKD-EPI)NonAf (>60 ml/min/1.73 sqM) Glucose (74-99) mg/dL Plasma Lactic Acid Ovidio (0.7-2.0) mmol/L Calcium (8.4-10.2) mg/dL Phosphorus (2.5-4.5) mg/dL Magnesium (1.6-2.3) mg/dL Total Bilirubin (0.2-1.3) mg/dL AST (17-59) U/L ALT (21-72) U/L Alkaline Phosphatase (38-126) U/L Total Protein (6.3-8.2) g/dL Albumin (3.5-5.0) g/dL Urine Color Yellow Urine Appearance Clear (Clear) Urine pH 6.0 (5.0-8.0) Ur Specific [place]edom 1.022 (1.001-1.035) Urine Protein 1+ H (Negative) Urine Glucose (UA) Negative (Negative) Urine Ketones Negative (Negative) Urine Blood Negative (Negative) Urine Nitrite Negative (Negative) Urine Bilirubin Negative (Negative) Urine Urobilinogen 6.0 (<2.0) mg/dL Ur Leukocyte Esterase Negative (Negative) Urine RBC 1 (0-5) /hpf Urine WBC 1 (0-5) /hpf Urine Bacteria Rare H (None) /hpf Urine Mucus Few H (None) /hpf - EKG Data -: EKG Interpreted by Me (EKG shows sinus rhythm rate of 70, MO 202, QRS 96, QTc 456) Disposition Clinical Impression: Dehydration, Sepsis syndrome, Bacteremia Disposition: ADMITTED IP TO THIS HOSP Condition: Fair Is patient prescribed a controlled substance at d/c from ED?: No Referrals: Escobar Reaves MD [Primary Care Provider] - 1-2 days
[2018-12-16 12:07] LABS: Basophils # (A) 0.1 k/uL (0-0.2); Basophils % (A) 0 %; Eosinophils % (A) 0 %; HCT 36.8 % (39.0-53.0); HGB 11.8 gm/dL (13.0-17.5); Lymphocytes # (A) 11.4 k/uL (1.0-4.8); Lymphocytes % (A) 40 %; MCH 28.9 pg (25.0-35.0); MCV 90.3 fL (80.0-100.0); Mean Platelet Volume 7.4; Monocytes # (A) 0.7 k/uL (0-1.0); Monocytes % (A) 2 %; Neutrophils % (A) 56 %; Platelet Count 182 k/uL (150-450); RBC 4.08 m/uL (4.30-5.90); RDW 14.1 % (11.5-15.5); WBC 28.7 k/uL (3.8-10.6)
[2018-12-16 12:09] LABS: ALT 139 U/L (21-72); AST 136 U/L (17-59); Albumin 3.2 g/dL (3.5-5.0); Alkaline Phosphatase 170 U/L (38-126); Anion Gap 11 mmol/L; Blood Urea Nitrogen 23 mg/dL (9-20); Calcium 8.8 mg/dL (8.4-10.2); Carbon Dioxide 26 mmol/L (22-30); Chloride 99 mmol/L (98-107); Glucose 113 mg/dL (74-99); Magnesium 2.2 mg/dL (1.6-2.3); Phosphorus 3.4 mg/dL (2.5-4.5); Sodium 136 mmol/L (137-145); Total Bilirubin 1.6 mg/dL (0.2-1.3); Total Protein 5.6 g/dL (6.3-8.2)
[2018-12-16 12:10] LABS: Appearance,Urine Clear (Clear); Bacteria,Urine Rare /hpf; Bilirubin,Urine Negative (Negative); Blood,Urine Negative (Negative); Color,Urine Yellow; Glucose,Urine (UA) Negative (Negative); Ketones,Urine Negative (Negative); Leukocyte Esterase,Urine Negative (Negative); Mucus,Urine Few /hpf; Nitrite,Urine Negative (Negative); Protein,Urine 1+ (Negative); RBC,Urine 1 /hpf (0-5); Specific Gravity,Urine 1.022 (1.001-1.035); WBC,Urine 1 /hpf (0-5)
[2018-12-16 12:18] LABS: Partial Thromboplastin Time 23.1 sec (22.0-30.0)
[2018-12-16 12:24] LABS: Creatine Kinase 20 U/L (55-170)
[2018-12-16 12:36] LABS: Creatine Kinase MB 0.9 ng/mL (0.0-2.4); Poikilocytosis (M) Present; Troponin I <0.012 ng/mL (0.000-0.034)
[2018-12-16 13:05] VITALS: BMI 24.3
--- NOTE | 2018-12-16 17:48 | P.HPIM ---
History of Present Illness Chief complaint Weakness and cough. History of present illness The patient is a 78-year-old patient of Dr. Reaves for whom I am covering who has a history of chronic lymphocytic leukemia for the past 3-4 days has been generally feeling weaker. No coughing. Nonproductive. No fever but intermittent chills and also episode during the week of night sweats. No unusual chest pain. Some shortness of breath also during the week. The patient was apparently in the emergency room day prior to admission and blood cultures done at that time was positive for strep pneumoniae. He had a chest x- ray that revealed some basilar infiltrates. The patient was called to return to the emergency room since he was not feeling any better. Past medical history Previous history of pneumonia back in September 2018. He has had previous positive blood cultures for strep pneumoniae. Chronic lymphocytic leukemia diagnosed in 2003. Apparently last June he became more symptomatic with increased white cells and palpable adenopathy and decreased platelets. He was treated by oncology with bendamustine and Rituxan for 4 cycles. Patient also has atrial fibrillation coronary artery disease Hyperlipidemia Medications Zocor 40 mg at at bedtime for cholesterol Rythmol 225 mg twice a day Metoprolol tartrate 25 mg twice a day Surgical history includes previous orthopedic surgery along with hernia repair and tonsillectomy. Bilateral rotator cuff surgery. Right axillary lymph node biopsies. No known ALLERGIES Review of systems Patient denies any unusual headache or visual disturbances. No nausea or vomiting. No chest pain. Positive cough. Nonproductive. No dysuria or hematuria. No blood in the stool. Family history Noncontributory Social history The patient is . Patient used to smoke in the past but no history of any excessive alcohol intake. Physical examination Patient is alert and oriented with a temperature 98.3 pulse is 70 respirations 18. Blood pressure 149/72 and he is 96% saturated on 2 L nasal cannula. Head is atraumatic. Neck is not stiff. No definite adenopathy detected. Lungs are generally clear except for some diffuse expiratory wheeze. Heart tones were slightly irregular without murmurs or rubs appreciated. Abdomen is soft and nontender without rebound guarding or masses detected. Extremities reveal no edema. Neurologically he is alert and oriented. Cranial nerves intact. No focal weakness noted. Laboratory White count is 20.7 with a hemoglobin 11.8 and a platelet count of 182. Neutrophils were 16,000 with lymphocytes 11.4. INR is 1.0 Sodium is 136 with a potassium 4.0. BUN of 23 with creatinine 0.77 given him a GFR of 86. Glucose is 113 Initial plasma lactic acid venous level was 2.1 but it did decrease down to 1.2 after 4 hours Alk phos is elevated at 170 with a bilirubin 1.6. AST is 136 with an ALT of 139. Troponin was less than 0.012 Albumin 3.2. Urinalysis revealed negative leukocyte esterase and only 1 white cells. Chest x-ray Was reported as residual basilar density at left lung base. Consistent with a pneumonia. Patient did have a ultrasound of the gallbladder which was positive for multiple small mobile stones. simple cyst of the upper pole of right kidney. Blood culture from December 15 is positive for Streptococcus pneumoniae. Urine culture from the same date no growth. EKG showed a normal sinus rhythm without acute ischemic changes. Impressions Left lower lobe pneumonia secondary to strep pneumococcus with positive sepsis and blood cultures Chronic lymphocytic leukemia as stated above Other past medical history as delineated above. Plans We'll continue with IV hydration and antibiotics. Consultation with infectious disease. Continue home medications for control of his atrial fib. Discussed with patient and staff at bedside. Further treatment pending clinical response, results of above. 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 Last Myocardial Infarction Date:: 2015 History of Any Multi-Drug Resistant Organisms: None Reported Past Surgical History: Hernia Repair, Orthopedic Surgery, Tonsillectomy Additional Past Surgical History / Comment(s): Bone marrow biopsy, bilateral rotator cuffs, cataracts removed with lens implants, umb hernia repair, rt axilla lymph node bx.colonscopy Past Anesthesia/Blood Transfusion Reactions: No Reported Reaction Additional Past Anesthesia/Blood Transfusion Reaction / Comment(s): clausterphobia. had blood transfusion- no reaction Past Psychological History: No Psychological Hx Reported Additional Psychological History / Comment(s): Pt lives with . Has no home care services, no medical equipment. Pt drives during daytime. Pt served in the [employer] for 8 years, after leaving the he worked at [employer] in [place] for 39 years. Smoking Status: Former smoker Past Alcohol Use History: None Reported Additional Past Alcohol Use History / Comment(s): started smoking cigars 1960 quit smoking 1989. Past Drug Use History: None Reported - Past Family History Mother Family Medical History: No Reported History Additional Family Medical History / Comment(s): pt stated his mom was healthy never went to the . at age 70 Father Family Medical History: Congestive Heart Failure (CHF), Myocardial Infarction ( [place]), Vascular Disorder Additional Family Medical History / Comment(s): at age 75. hx heavy smoker Medications and Allergies Home Medications Medication Instructions Recorded Confirmed Type Propafenone [Rythmol] 225 mg PO BID 12/04/15 12/16/18 History Simvastatin [Zocor] 40 mg PO HS 01/23/18 12/16/18 History Metoprolol Tartrate [Lopressor] 25 mg PO BID 12/15/18 12/16/18 History Allergies Allergy/AdvReac Type Severity Reaction Status Date / Time No Known Allergies Allergy Verified 12/16/18 11:33 Physical Exam Vitals: Vital Signs Temp Pulse Pulse Resp BP BP Pulse Ox 12/16/18 13:39 98.3 F 70 18 149/72 96 12/16/18 12:35 76 18 119/78 97 12/16/18 10:43 98 F 83 18 112/70 96 Intake and Output 12/16/18 12/16/18 12/16/18 06:59 14:59 22:59 Other: Voiding Method Toilet Weight 74.843 kg Results CBC & Chem 7: 12/16/18 11:37 12/16/18 11:37 Labs: Abnormal Lab Results - Last 24 Hours (Table) 12/16/18 12/16/18 12/16/18 Range/Units 11:37 11:37 11:37 WBC 28.7 H (3.8-10.6) k/uL RBC 4.08 L (4.30-5.90) m/uL Hgb 11.8 L (13.0-17.5) gm/dL Hct 36.8 L (39.0-53.0) % Neutrophils # 16.0 H (1.3-7.7) k/uL Lymphocytes # 11.4 H (1.0-4.8) k/uL Sodium 136 L (137-145) mmol/L BUN 23 H (9-20) mg/dL Glucose 113 H (74-99) mg/dL Plasma Lactic Acid Ovidio (0.7-2.0) mmol/L Total Bilirubin 1.6 H (0.2-1.3) mg/dL AST 136 H (17-59) U/L ALT 139 H (21-72) U/L Alkaline Phosphatase 170 H (38-126) U/L Total Creatine Kinase 20 L (55-170) U/L Total Protein 5.6 L (6.3-8.2) g/dL Albumin 3.2 L (3.5-5.0) g/dL Urine Protein (Negative) Urine Bacteria (None) /hpf Urine Mucus (None) /hpf 12/16/18 12/16/18 Range/Units 11:37 11:37 WBC (3.8-10.6) k/uL RBC (4.30-5.90) m/uL Hgb (13.0-17.5) gm/dL Hct (39.0-53.0) % Neutrophils # (1.3-7.7) k/uL Lymphocytes # (1.0-4.8) k/uL Sodium (137-145) mmol/L BUN (9-20) mg/dL Glucose (74-99) mg/dL Plasma Lactic Acid Ovidio 2.1 H* (0.7-2.0) mmol/L Total Bilirubin (0.2-1.3) mg/dL AST (17-59) U/L ALT (21-72) U/L Alkaline Phosphatase (38-126) U/L Total Creatine Kinase (55-170) U/L Total Protein (6.3-8.2) g/dL Albumin (3.5-5.0) g/dL Urine Protein 1+ H (Negative) Urine Bacteria Rare H (None) /hpf Urine Mucus Few H (None) /hpf Thrombosis Risk Factor Assmnt - Choose All That Apply Any of the Below Risk Factors Present?: Yes Each Factor Represents 1 point: Sepsis (< 1month) Other Risk Factors: Yes Each Risk Factor Represents 2 Points: Malignancy Each Risk Factor Represents 3 Points: Age 75 years or older Other congenital or acquired thrombophilia - If yes, enter type in comment: No Thrombosis Risk Factor Assessment Total Risk Factor Score: 6 Thrombosis Risk Factor Assessment Level: High Risk
[2018-12-16] MEDS: ATORVASTATIN 20 MG TAB PO SCH (20:56)
[2018-12-16] MEDS: PROPAFENONE 225 MG TAB PO SCH (20:56)
[2018-12-16] MEDS: METOPROLOL TARTRATE 25 MG TAB PO SCH (20:56)
[2018-12-16] MEDS ORDERED: VANCOMYCIN IV PER PHARMACY 1 EACH MISC MISCELLANE PRN (23:56)
[2018-12-17] MEDS ORDERED: VANCOMYCIN 1,500 MG in SODIUM CHLORIDE 0.9% 250 ML IVPB ONE (01:00)
[2018-12-17] MEDS ORDERED: PANTOPRAZOLE 40 MG/10 ML VIAL IV SCH (09:00)
[2018-12-17] MEDS: METOPROLOL TARTRATE 25 MG TAB PO SCH ×2 (09:23→20:49)
[2018-12-17] MEDS: ENOXAPARIN 40 MG/0.4 ML SYRINGE SQ SCH (09:24)
[2018-12-17] MEDS: SODIUM CHLORIDE 0.9% 1,000 ML IV SCH (09:24)
[2018-12-17] MEDS: PROPAFENONE 225 MG TAB PO SCH ×2 (09:25→20:49)
--- NOTE | 2018-12-17 09:35 | CONS ---
CONSULTATION DATE OF SERVICE: 12/16/2018. REASON FOR CONSULTATION: Bacteremia. HISTORY OF PRESENT ILLNESS: The patient is an 78-year-old male with past medical history significant for pneumonia. The patient also has history of chronic lymphocytic leukemia. The patient presented to the ER at [facility] yesterday with the chief complaints of increasing shortness of breath. He did have a cough, which is mostly mild to moderately in intensity, bringing up some yellow sputum. No hemoptysis. No chest pain. He did have fever, but no URI symptoms. The patient was evaluated by the ER physician. He was diagnosed with pneumonia. The patient did have blood cultures obtained and was discharged home on oral antibiotic with blood culture coming positive today with strep pneumo. The patient has been advised to come back to the hospital. The patient has been started on Rocephin. Infectious Disease was consulted for further recommendation regarding antibiotic therapy. REVIEW OF SYSTEMS: Positive points have been mentioned in HPI. Rest of the system has been negative. PAST MEDICAL HISTORY: Atrial fibrillation, hypertension, hyperlipidemia, [place], pneumonia. Chronic lymphocytic leukemia. PAST SURGICAL HISTORY: Tonsillectomy, bilaterally rotator cuff repair, cataract surgery, hernia repair. SOCIAL HISTORY: Remote history of smoking. Quit drinking. No drinking or drug use. FAMILY HISTORY: Mother was healthy who at age of 70. Father with congestive heart failure, [place]. ALLERGIES: No known drug allergies. MEDICATIONS: The patient is currently on Rocephin 1 g daily. He is on Lovenox, Lopressor, Protonix, Rythmol. PHYSICAL EXAMINATION: Blood pressure is 127/68 with a pulse of 78, temperature 98.3. He is 95% on room air. General description is an elderly male lying in bed in no distress. No tachypnea or accessory muscles of respiration use. HEENT: Shows slight pallor. No scleral icterus. Oral mucosal membranes are dry. No pharyngeal erythema or thrush. Neck: The neck trachea central. No thyromegaly. Lungs: Unlabored breathing with decreased breath sounds in the bases. No wheeze. Heart S1, S2. Regular rate and rhythm. ABDOMEN: Soft. No tenderness. No guarding or rigidity. Extremities: No edema of the feet. Skin examination: No rash or mass palpable. NEUROLOGICAL: Patient is awake, alert, oriented times three. Mood and affect normal. LABS: Blood cultures that were drawn yesterday growing strep pneumo. Chest x-ray with bilateral basilar infiltrate. Hemoglobin is 11.1, hematocrit 28.7, BUN of 23, creatinine of 0.77. Lactic acid 2.1. DIAGNOSTIC IMPRESSION AND PLAN: Patient with strep pneumo bacteremia, source is likely pneumonia in this patient who did have a component of sepsis with elevated white count and lactic acid with source being pneumonia. Reviewing his micro data did show he did have strep pneumo bacteremia back in June and it was a resistant organism with to be sensitive to Rocephin. PLAN: 1. Blood cultures repeat to document clearance of bacteremia. 2. We will add vancomycin, pharmacy to dose target of 15 while watching his kidney function and Vanco trough closely. 3. We will follow on his clinical condition and cultures closely to further adjust these medication if needed. Thank you for this consultation. We will follow this patient along with you. MMODL / IJN: [id number] /
[2018-12-17] MEDS: VANCOMYCIN 1,250 MG in SODIUM CHLORIDE 0.9% 250 ML IVPB SCH (13:19)
[2018-12-17] MEDS: ATORVASTATIN 20 MG TAB PO SCH (20:49)
--- NOTE | 2018-12-17 23:17 | PN ---
PROGRESS NOTE DATE OF SERVICE: 12/17/2018. REASON FOR FOLLOW UP: Strep pneumo bacteremia secondary to pneumonia. INTERVAL HISTORY: The patient is currently afebrile. The patient is breathing more comfortably. Denies any chest pain. Did have some cough. No nausea, no vomiting. No abdominal pain. No diarrhea. PHYSICAL EXAMINATION: Blood pressure 146/83 with a pulse of 72. Temperature 97.8. He is 93% on room air. General description is an elderly male lying in bed in no distress. Respiratory system: Unlabored breathing with decreased breath sounds at the bases. No wheeze. Heart S1, S2. Regular rate and rhythm. Abdomen soft. No tenderness. Extremities: No edema of the feet. LABS: No new labs have been obtained today. Blood cultures obtained yesterday have been negative so far. DIAGNOSTIC IMPRESSION AND PLAN: Patient with step pneumo bacteremia source is likely pneumonia. The patient is to cover with vancomycin, Rocephin, waiting for the sensitivity to finalize. However with concern for possible resistant pathogen, the patient will need a PICC line for outpatient IV antibiotic therapy. Continue supportive care. MMODL / IJN: [id number] /
[2018-12-18] MEDS: VANCOMYCIN 1,250 MG in SODIUM CHLORIDE 0.9% 250 ML IVPB SCH ×2 (01:05→13:05)
[2018-12-18] MEDS: SODIUM CHLORIDE 0.9% 1,000 ML IV SCH (05:47)
[2018-12-18] MEDS: METOPROLOL TARTRATE 25 MG TAB PO SCH ×2 (07:54→21:24)
[2018-12-18] MEDS: PROPAFENONE 225 MG TAB PO SCH ×2 (07:54→21:24)
[2018-12-18] MEDS: ENOXAPARIN 40 MG/0.4 ML SYRINGE SQ SCH (07:55)
--- NOTE | 2018-12-18 08:58 | P.PN ---
Progress Note - Text The patient is a 78-year-old gentleman of Dr. Reaves'elton who has been admitted with strep pneumonia sepsis. He does have underlying chronic lymphocytic leukemia that has become more symptomatic in June and treated by oncology. He is presently on vancomycin and plans are for PICC line placement for continued outpatient therapy. This morning he states he feels well but has apparently had an increasing right neck mass that is not very tender. He states his cough is better. He has had no hot flashes or fevers. Vital signs show temperature 97.4 with a pulse of 73 and respirations 18. Blood pressure 136/78 and he is 95% saturated on room air. The patient has what appears to be somewhat firm approximately 3 x 5 cm mass along the posterior border of the right sternocleidomastoid muscle. There is no erythema or fluctuance noted at this time. Lung and heart exam was clear. No neurological changes. No new labs at this time. Impressions and plans Notes from infectious disease regarded. Once again plans for PICC line and continued antibiotic therapy with vancomycin. We'll ask oncology to evaluate the right posterior cervical neck mass which could be related to his underlying malignancy. CBC and basic metabolic panel for tomorrow morning. Prognosis guarded.
--- NOTE | 2018-12-18 09:01 | P.PN ---
Progress Note - Text Patient was seen on December 17. This is a progress note for that date that apparently wasn't transcribed. Patient was seen in follow-up. He is a patient of Dr. Carcamo for whom I am covering with a history of chronic leukocytic leukemia. He has had recurrent strep pneumoniae pneumonia and septicemia. Patient has been evaluated by infectious disease and placed on vancomycin. Patient was clinically improved. Vital signs stable. No new complaints. Lung and heart examination was unremarkable. No unusual edema. No neurological deficits. Impressions and plans pneumococcal pneumoniae sepsis. Pneumonia. Chronic lymphocytic leukemia. Continue with vancomycin treatment. We'll await further recommendations from infectious disease.
[2018-12-18] MEDS: SODIUM CHLORIDE 0.9% 500 ML 500 ML IV SCH (11:31)
--- NOTE | 2018-12-18 13:05 | P.CONS ---
History of Present Illness - Reason for Consult Consult date: 12/18/18 - History of Present Illness Mr. Lee is a 78 yr old WM of Dr. Hernandez with a history of stage 0 CLL diagnosed in 2003, observation until 06/16 when he became symptomatic with increased WBC, decreased platelets and palpable adenopathy. He was treated with bendamustine and rituxan x 4 cycles, post treatment monitoring. He has required high dose steroid treatments through the years for episodes of thrombocytopenia (2010, 12/2011, 07/2012). In early 2013 he had a bone marrow aspiration and biopsy for persistent leukopenia, this showed CLL, as expected but, no new findings. He was treated with Rituxan x 4. He had recurrent low counts and lymphadenopathy and was treated again in 10/21. 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 He was treated with Rituxan and bendeka x 6, completed 12/25. January 2018 he presented with back pain, abd pain and distension, colonoscopy and EGD were negative, progressive CLL vs transformatio was determined to be the cause . pt was started on CEOP with Neulasta and completed 05/20/18. CT post treatment showed partial response, with CT on 09/07/18 showing stable disease. The patient was admitted this time, with complains of generally not feeling well, with generalized weakness and decrease in appetite. He denied any obvious fevers or chills. On additional questioning, her did endorse some mild shortness of breath, as well as sore throat for at least one day. The patient was admitted for further management. Blood cultures came back positive for Streptococcus pneumonia. He was seen by infectious disease, started on vancomycin with clinical improvement. On admission the patient was noted to have a lump in the right upper neck, which was mildly tender to palpation. He stated that this had grown within the last few days. CBC showed an increase in total WBC is as well as absolute lymphocyte count, compared to his previous admission. Consult was therefore placed for further evaluation and recommendations Review of Systems Constitutional: Reports malaise, Reports weakness Eyes: denies blurred vision, denies pain Ears: deny: decreased hearing, ear discharge, earache, tinnitus Ears, nose, mouth and throat: Reports neck lump, Reports sore throat Cardiovascular: Reports dyspnea on exertion Respiratory: Reports dyspnea Gastrointestinal: Denies abdominal pain, Denies diarrhea, Denies nausea, Denies vomiting Genitourinary: Reports as per HPI Musculoskeletal: Reports muscle weakness Integumentary: Denies pruritus, Denies rash Neurological: Reports weakness Psychiatric: Denies anxiety, Denies depression Endocrine: Reports fatigue, Denies weight change Hematologic/Lymphatic: Reports lymphadenopathy Past Medical History Past Medical History: Atrial Fibrillation, Cancer, Hyperlipidemia, Hypertension , Myocardial Infarction ([place]), Pneumonia Additional Past Medical History / Comment(s): CLL with last chemo 05/20/18, intra abdominal lymphadenopathy, hemolytic anemia/thrombocytopenia with chemotherapy, pneumonias, sepsis, bacteremia, skin cancer with removals, [place] 1997 and per discharge summary 07/22/16 but pt does not recall this, past sacral decub-healed, 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 Last Myocardial Infarction Date:: 2015 History of Any Multi-Drug Resistant Organisms: None Reported Past Surgical History: Hernia Repair, Orthopedic Surgery, Tonsillectomy Additional Past Surgical History / Comment(s): Bone marrow biopsy, bilateral rotator cuffs, cataracts removed with lens implants, umb hernia repair, rt axilla lymph node bx.colonscopy Past Anesthesia/Blood Transfusion Reactions: No Reported Reaction Additional Past Anesthesia/Blood Transfusion Reaction / Comm: clausterphobia. had blood transfusion- no reaction Past Psychological History: No Psychological Hx Reported Additional Psychological History / Comment(s): Pt lives with . Has no home care services, no medical equipment. Pt drives during daytime. Pt served in the [employer] for 8 years, after leaving the he worked at [employer] in [place] for 39 years. Smoking Status: Former smoker Past Alcohol Use History: None Reported Additional Past Alcohol Use History / Comment(s): started smoking cigars 1959 quit smoking 1989. Past Drug Use History: None Reported - Past Family History Mother Family Medical History: No Reported History Additional Family Medical History / Comment(s): pt stated his mom was healthy never went to the . at age 70 Father Family Medical History: Congestive Heart Failure (CHF), Myocardial Infarction ( [place]), Vascular Disorder Additional Family Medical History / Comment(s): at age 75. hx heavy smoker Medications and Allergies Home Medications Medication Instructions Recorded Confirmed Type Propafenone [Rythmol] 225 mg PO BID 12/04/15 12/16/18 History Simvastatin [Zocor] 40 mg PO HS 01/23/18 12/16/18 History Metoprolol Tartrate [Lopressor] 25 mg PO BID 12/15/18 12/16/18 History Allergies Allergy/AdvReac Type Severity Reaction Status Date / Time No Known Allergies Allergy Verified 12/16/18 11:33 Physical Exam Vitals: Vital Signs Temp Pulse Resp BP Pulse Ox 12/18/18 07:48 97.4 F L 73 18 136/78 95 12/18/18 04:22 97.8 F 67 16 135/71 96 12/17/18 21:18 97.8 F 72 16 146/83 96 12/17/18 20:46 97.5 F L 68 18 148/78 95 Intake and Output 12/17/18 12/18/18 12/18/18 22:59 06:59 14:59 Intake Total 275 700 Balance 275 700 Intake: Intake, IV Titration 275 700 Amount Sodium Chloride 0.9% 1, 225 450 000 ml @ 75 mls/hr IV . [id number] [facility] Rx#:[id number] Vancomycin 1,250 mg In 250 Sodium Chloride 0.9% 250 ml @ 125 mls/hr IVPB Q12H [facility] Rx#:[id number] cefTRIAXone 1 gm In 50 Sodium Chloride 0.9% 50 ml @ 100 mls/hr IVPB Q12HR [facility] Rx#:[id number] Other: Voiding Method Toilet # Voids 1 - Constitutional General appearance: no acute distress - EENT Eyes: EOMI, PERRLA ENT: hearing grossly normal, normal oropharynx - Neck Neck: lymphadenopathy (Pre-3.5 cm mass right upper neck, firm, mildly tender to palpation. Right supraclavicular [place] mass 2.5-3 cm, firm, nontender) Thyroid: bilateral: normal size - Respiratory Respiratory: bilateral: CTA - Cardiovascular Rhythm: regular Heart sounds: normal: S1, S2 - Gastrointestinal General gastrointestinal: normal bowel sounds, soft - Integumentary Integumentary: normal - Neurologic Neurologic: CNII-XII intact - Musculoskeletal Musculoskeletal: generalized weakness, strength equal bilaterally - Psychiatric Psychiatric: A&O x's 3, intact judgment & insight Results CBC & Chem 7: 12/16/18 11:37 12/16/18 11:37 Labs: Microbiology - Last 24 Hours (Table) 12/17/18 06:17 Blood Culture - Preliminary Blood No Growth after 24 hours 12/16/18 11:37 Blood Culture Gram Stain - Preliminary Blood Blood Culture - Preliminary Streptococcus pneumoniae 12/16/18 11:37 Urine Culture - Final Urine,Clean Catch 12/16/18 11:47 Blood Culture - Preliminary Blood No Growth after 24 hours 12/16/18 11:37 Blood Culture - Final Blood Chest x-ray: report reviewed US - abdomen: report reviewed Assessment and Plan (1) CLL (chronic lymphocytic leukemia) Narrative/Plan: The patient has a long-standing history of CLL/SLL, with diagnostic and therapeutic circumstances as described in the HPI. There was concern for possible transformation in the spring, it which the patient was treated with a CEOP. He has been stable since, continuing on observation. During this admission, there is increase in adenopathy in the right supraclavicular, and right upper cervical nodes seen. Total WBC is elevated, with increase in absolute lymphocyte count compared to 09/25. This could indicate progression, but the patient has had reactive changes similar to this previously in the setting of acute illness. Therefore at this time I would recommend continuation of treatment for his acute illness. Patient has a follow-up scheduled in the office within 2 weeks. If adenopathy/leukocytosis persists to this degree or worsens, then that would be more indicative of progression. In that case the patient will have restaging scans. I would also consider a repeat biopsy. He will be started then be started back on treatment, as appropriate. If CLL/SLL progression is improved, I would likely use Ibrutinib. Current Visit: No Status: Chronic Priority: High Code(s): C91.10 - CHRONIC LYMPHOCYTIC LEUK OF B-CELL TYPE NOT ACHIEVE REMIS SNOMED Code(s): 32769622 (2) Bacteremia Narrative/Plan: The patient was diagnosed with septic [place] pneumonia bacteremia. He is improved with vancomycin. ID is following. Defer to them for antibiotic management. Check hemoglobin levels. If low he may benefit from IVIG infusion. Current Visit: Yes Status: Acute Code(s): R78.81 - BACTEREMIA SNOMED Code( s): 2247947 Plan: Defer to the admitting service and other consultants for management of his other medical problems
[2018-12-18] MEDS: ATORVASTATIN 20 MG TAB PO SCH (21:24)
--- NOTE | 2018-12-18 23:54 | PN ---
PROGRESS NOTE DATE OF SERVICE: December 18, 2018. REASON FOR FOLLOW UP: Strep pneumo bacteremia secondary to pneumonia. INTERVAL HISTORY: The patient is currently afebrile. He is breathing more comfortably. The patient's cough has improved. The patient denies having any nausea, no vomiting. No abdominal pain. No diarrhea. PHYSICAL EXAMINATION: Blood pressure 132/78 with a pulse of 69. Temperature 97.8. She is 95% on room air. General description is an elderly male up in the bed in no distress. Respiratory system: Unlabored breathing with decreased breath sounds in the base, with no wheeze. Heart S1, S2. Regular rate and rhythm. Abdomen soft. No tenderness. LABS: No new labs have been obtained today. The blood culture with strep pneumo that is multidrug resistant. However, sensitive to ceftriaxone and vancomycin. DIAGNOSTIC IMPRESSION AND PLAN: Patient with multiresistant strep pneumo bacteremia with option available. The patient will get a midline tomorrow and recommending Rocephin 2 g daily for 2 weeks. Once antibiotic arranged, he will be able to go home from ID standpoint. Prescription given to the patient. Continue supportive care. MMODL / IJN: [id number] /
[2018-12-19] MEDS ORDERED: VANCOMYCIN TROUGH DUE 1 EACH MISC MISCELLANE ONE
[2018-12-19] MEDS: VANCOMYCIN 1,250 MG in SODIUM CHLORIDE 0.9% 250 ML IVPB SCH (00:15)
[2018-12-19 06:05] VITALS: RESP 16
[2018-12-19 08:06] LABS: Anion Gap 6 mmol/L; Blood Urea Nitrogen 13 mg/dL (9-20); Calcium 8.2 mg/dL (8.4-10.2); Carbon Dioxide 26 mmol/L (22-30); Chloride 106 mmol/L (98-107); Glucose 90 mg/dL (74-99); Potassium 3.4 mmol/L (3.5-5.1); Sodium 138 mmol/L (137-145)
[2018-12-19 08:08] LABS: Basophils # (A) 0.2 k/uL (0-0.2); Basophils % (A) 1 %; Eosinophils # (A) 0.2 k/uL (0-0.7); Eosinophils % (A) 1 %; HCT 33.9 % (39.0-53.0); HGB 10.8 gm/dL (13.0-17.5); Lymphocytes # (A) 8.7 k/uL (1.0-4.8); Lymphocytes % (A) 48 %; MCH 29.2 pg (25.0-35.0); MCHC 31.9 g/dL (31.0-37.0); MCV 91.6 fL (80.0-100.0); Mean Platelet Volume 6.7; Monocytes # (A) 0.4 k/uL (0-1.0); Monocytes % (A) 2 %; Neutrophils # (A) 8.1 k/uL (1.3-7.7); Neutrophils % (A) 45 %; Platelet Count 259 k/uL (150-450); RBC 3.71 m/uL (4.30-5.90); RDW 13.8 % (11.5-15.5); WBC 18.1 k/uL (3.8-10.6)
--- NOTE | 2018-12-19 08:23 | XR ---
EXAMINATION TYPE: XR chest 2V DATE OF EXAM: 12/19/2018 COMPARISON: December 15, 2018 HISTORY: Shortness of breath TECHNIQUE: Frontal and lateral views of the chest are obtained. FINDINGS: Scattered senescent parenchymal changes noted. Hyperinflation compatible with COPD. No evidence for infiltrate. No evidence for atelectasis. Heart size is stable. Mediastinal structures are stable and grossly unremarkable. No evidence for hilar prominence. Degenerative changes dorsal spine. IMPRESSION: 1. No evidence for acute pulmonary disease.
[2018-12-19] MEDS: METOPROLOL TARTRATE 25 MG TAB PO SCH (08:51)
[2018-12-19] MEDS: PROPAFENONE 225 MG TAB PO SCH (08:51)
[2018-12-19] MEDS: ENOXAPARIN 40 MG/0.4 ML SYRINGE SQ SCH (08:51)
[2018-12-19 09:13] LABS: Poikilocytosis (M) Present
[2018-12-19] MEDS: SODIUM CHLORIDE 0.9% 500 ML 500 ML IV SCH (13:06)
[2018-12-19 14:14] VITALS: BP 150/82; PULSE 65; TEMP 97.5
--- NOTE | 2018-12-19 17:16 | PN ---
PROGRESS NOTE DATE OF SERVICE: 12/19/2018. REASON FOR FOLLOWUP: Strep pneumo bacteremia. Source is pneumonia. INTERVAL HISTORY: The patient is afebrile. He is feeling better, breathing comfortably. Denies having any chest pain. No abdominal pain or any diarrhea. PHYSICAL EXAMINATION: Blood pressure 150/82 with a pulse of 55, temperature 97.5. He is 97% on room air. General description is an elderly male up in the chair in no distress. RESPIRATORY SYSTEM: Unlabored breathing with decreased breath sounds. No wheeze. HEART: S1, S2. Regular rate and rhythm. ABDOMEN: Soft. No tenderness. LABS/IMAGING: Follow-up blood culture has been negative. Chest x-ray reported to be negative. DIAGNOSTIC IMPRESSION AND PLAN: Patient with Streptococcus pneumoniae bacteremia with concern about possible pneumonia, as the patient did have pulmonary symptoms. Follow-up blood cultures have been negative. The patient will continue with Rocephin 2 grams daily to finish a 2-week course of therapy, for which the patient has had a mid line, and close outpatient followup. Continue with supportive care. MMODL / IJN: [id number] /
--- NOTE | 2018-12-19 22:53 | PN ---
PROGRESS NOTE CHIEF COMPLAINT: Re-evaluation. HISTORY OF PRESENT ILLNESS: This is an 78-year-old gentleman who was admitted to the hospital because of having a positive blood culture. He was not feeling well. The patient was seen in the emergency room, had atrial fibrillation, was afebrile. Workup did not reveal anything significant. The patient was discharged from the emergency room. However, the blood cultures came back positive for Strep pneumoniae and thus he was brought back into the hospital. The patient was seen by ID. He is on Rocephin. The patient had Rocephin 2 grams daily. He was also on vancomycin, which has been discontinued. The patient is feeling better. He does not appear ill at present. REVIEW OF SYSTEMS: NEURO: Denies any headaches, dizziness. PSYCH: No anxiety. CARDIAC: No chest pain, angina, palpitations. RESPIRATORY: No shortness of breath, cough. No hemoptysis. GI: No nausea, vomiting, abdominal pain, diarrhea. : No symptoms of dysuria or hematuria. EXTREMITIES: Denies pain, edema. CONSTITUTIONAL: No fever, chills. PHYSICAL EXAMINATION: Pleasant gentleman, at present in no distress. Vital signs reveal temperature 97.3, pulse 74, respirations 16, blood pressure 121/63, pulse ox 95% on room air. HEENT: Normocephalic. NECK: Neck has a large knotted mass, right side of neck and right submandibular area extending to supraclavicular area. It appears to be matted lymph nodes. There is some tenderness associated. Chest examination reveals clear to auscultation and percussion. CARDIAC: Normal S1, S2 with no gallops, murmurs. Irregular rhythm. The patient has small lymph nodes in the axilla. ABDOMEN: Soft. Bowel sounds present. No palpable masses. No splenomegaly appreciated. EXTREMITIES: No edema. NEUROLOGIC: Awake, alert, oriented with well-coordinated movements. LABORATORY ASSESSMENT: White count of 18.1, hemoglobin 10.8, neutrophils down to 8.1, lymphocytes down to 8.7, potassium 3.4, and normal BUN and creatinine. Blood culture had been positive for Strep pneumoniae. Chest x-ray revealed no evidence of any acute pulmonary disease. ASSESSMENT: 1. Streptococcus pneumoniae bacteremia, recurrent. 2. Chronic lymphocytic leukemia. 3. Stable coronary artery disease. 4. Anemia, chronic. PLAN: The patient at present is stable. Continue present medical regimen. ID has arranged for patient to have a mid line and is scheduled to be discharged and follow up with Dr. Davila for IV antibiotics. Patient's condition was discussed with the patient. Prognosis guarded. MMODL / IJN: [id number] /
[2018-12-20 11:59] LABS: Immunoglobulin A <25.5 mg/dL (60.0-350.0); Immunoglobulin M 48.1 mg/dL (40.0-280.0)
--- NOTE | 2018-12-24 13:18 | P.DS ---
Providers Date of admission: 12/16/18 10:47 Expected date of discharge: 12/20/18 Attending physician: Miles Andino Consults: 12/16/18 14:03 Consult Physician Routine Consulting Provider: Collin Davila Consult Reason/Comments: positive blood cultures Do you want consulting provider notified?: Yes 12/18/18 08:49 Consult Physician Urgent Consulting Provider: Moiz Hernandez Consult Reason/Comments: increasing right neck mass Do you want consulting provider notified?: Yes Primary care physician: [place] [facility] Hospital Course: This 78-year-old gentleman who presented to the emergency room on 12/15/18 with complaint of not feeling well. The patient was afebrile The patient felt he might be coming down with a pneumonia. He has mild chronic cough and has had previous pneumonias. The patient also has a history of chronic lymphocytic leukemia. Patient after evaluation in the emergency room was discharged home. He had an blood draw including a blood culture. He had an ultrasound of the liver and gallbladder. Patient was noted to have cholelithiasis with no suggestion of cholecystitis. Also noted to have significant amount of lymphadenopathy in the windows . This is chronic. Patient's blood culture came back positive growing strep pneumonia. Patient was contacted by the emergency room and brought back into the hospital. Unfortunately no reported chest x-ray at the time of admission. On my evaluation upon return on December 19 a chest x-ray done revealed no evidence of any pneumonic process. Patient had been started on Rocephin upon the recommendation of infectious disease service. Patient was feeling well. He has a large mass in the right neck which appears to be matted lymph nodes. He has no associated throat infection evident. No culture had been done. Pharynx was clear of any exudates. It is assumed that the patient's blood culture positive could be early respiratory infection not viewed on x-ray. Patient was feeling much improved and thus was discharged home to continue as an outpatient and infectious disease office for IV antibiotic infusion. He was recommended to complete a two-week course of IV Rocephin. Patient was also seen by the hem oncologist. Patient's condition stable at the time of discharge. It appears the patient's disease is progressive as patient with significant adenopathy previously in the abdomen now also on the neck. Patient has been vaccinated with pneumococcal vaccine both Prevnar 13 and the Pneumovax Final diagnosis to include 1. Strep pneumonia bacteremia 2. Probable respiratory infection source undetermined possible pneumonia 3. Chronic lymphocytic leukemia 4. Paroxysmal atrial fibrillation not on adequate hydration 5. Essential hypertension 6. Asymptomatic cholelithiasis Patient Condition at Discharge: Fair Plan - Discharge Summary Discharge Rx Participant: No New Discharge Prescriptions: New cefTRIAXone [Rocephin] 2,000 mg IVP Q24HR #14 vial No Action Propafenone [Rythmol] 225 mg PO BID Simvastatin [Zocor] 40 mg PO HS Metoprolol Tartrate [Lopressor] 25 mg PO BID Discharge Medication List Propafenone [Rythmol] 225 mg PO BID 12/04/15 [History] Simvastatin [Zocor] 40 mg PO HS 01/23/18 [History] Metoprolol Tartrate [Lopressor] 25 mg PO BID 12/15/18 [History] cefTRIAXone [Rocephin] 2,000 mg IVP Q24HR #14 vial 12/18/18 [Rx] Follow up Appointment(s)/Referral(s): Escobar Reaves MD [Primary Care Provider] - 12/26/18 2:00 pm Collin Davila MD [STAFF PHYSICIAN] - 1 Week (patient is to call office for date and time of appt.) Patient Instructions/Handouts: Ceftriaxone (By injection), Sepsis (GEN), Bacteremia (DC), How to Care for Your Midline Catheter (DC), Peripherally Inserted Central Catheters and Midline Catheters (DC) Activity/Diet/Wound Care/Special Instructions: Please go to 's office tomorrow at 2pm for first IV antibiotic administration. The contact information is: . Discharge Disposition: HOME SELF-CARE
== END 2018-12-19 15:50 | disposition home or self-care (01) | DRG 871 ==
LOC: EC 10:33 → 4MS4W 10:47 → 3NMEDONC 13:00
PROVIDERS: ADMIT Internal Medicine; ATTEND Internal Medicine
PROC: 05HC33Z Insertion of Infusion Device into Left Basilic Vein, Percutaneous Approach (ICD-10-PCS; principal; 2018-12-19 13:00)
DX: A40.9 Streptococcal sepsis, unspecified (principal); J13 Pneumonia due to Streptococcus pneumoniae; C91.10 Chronic lymphocytic leukemia of B-cell type not having achieved remission; I48.91 Unspecified atrial fibrillation; E86.0 Dehydration; D64.9 Anemia, unspecified; I69.998 Other sequelae following unspecified cerebrovascular disease; E78.5 Hyperlipidemia, unspecified; I10 Essential (primary) hypertension; I25.10 Atherosclerotic heart disease of native coronary artery without angina pectoris; I25.2 Old myocardial infarction; M17.11 Unilateral primary osteoarthritis, right knee; R01.1 Cardiac murmur, unspecified; F40.240 Claustrophobia; H53.2 Diplopia; Z79.899 Other long term (current) drug therapy; Z85.828 Personal history of other malignant neoplasm of skin; Z87.01 Personal history of pneumonia (recurrent); Z87.891 Personal history of nicotine dependence; Z98.42 Cataract extraction status, left eye; Z98.41 Cataract extraction status, right eye; Z96.1 Presence of intraocular lens; Z82.49 Family history of ischemic heart disease and other diseases of the circulatory system
CPT/HCPCS: 36410; 36415; 71046; 76705; 76937; 80048; 80053; 80202; 81001; 81003; 82550; 82553; 82784; 83605; 83735; 83880; 84100; 84484; 85025; 85610; 85730; 87040; 87077; 87086; 87186; 87502; 93005; 94640; 94760; 96361; 96365; 96374; 99284; 99285

== ENCOUNTER 2019-03-23 05:10 | Inpatient (IN) | payer MEDICARE, BC ==
[2019-03-23 05:52] LABS: HCT 35.2 % (39.0-53.0); HGB 11.3 gm/dL (13.0-17.5); MCH 28.8 pg (25.0-35.0); MCHC 32.2 g/dL (31.0-37.0); MCV 89.3 fL (80.0-100.0); Mean Platelet Volume 7.5; Platelet Count 164 k/uL (150-450); RBC 3.94 m/uL (4.30-5.90); RDW 14.6 % (11.5-15.5)
[2019-03-23 05:57] LABS: WBC 64.4 k/uL (3.8-10.6)
[2019-03-23] MEDS ORDERED: MORPHINE SULFATE 4 MG/ML SYRINGE IV STA ×2 (06:06→07:09)
[2019-03-23 06:07] LABS: Calcium 9.4 mg/dL (8.4-10.2); Total Bilirubin 1.7 mg/dL (0.2-1.3); Total Protein 6.1 g/dL (6.3-8.2)
--- NOTE | 2019-03-23 06:08 | ED ---
Abdominal Pain HPI - General Chief Complaint: Abdominal Pain Stated Complaint: Abd Pain Time Seen by Provider: 03/23/19 05:26 Source: patient Mode of arrival: wheelchair - History of Present Illness Initial Comments: Patient is an 78-year-old man who presents with the onset of diffuse abdominal pain that started just after midnight. The patient states that he was attempting sleep at the time. He describes it as a constant severe cramping type of pain. He has not found factors that relieve or worsen the pains. It reminds him of an episode that he had approximately 3 or 4 years ago he states that lymph nodes were pressing on his bowel. He states that he had to have bill atments to shrink them. MD Complaint: abdominal pain Onset/Timin -: hour(s) Location: diffuse Radiation: none Migration to: no migration Severity: severe Quality: cramping Consistency: constant Improves With: nothing Worsens With: nothing Associated Symptoms: nausea - Related Data Home Medications Medication Instructions Recorded Confirmed Propafenone [Rythmol] 225 mg PO BID 12/04/15 03/23/19 Simvastatin [Zocor] 40 mg PO HS 01/23/18 03/23/19 Metoprolol Tartrate [Lopressor] 25 mg PO BID 12/15/18 03/23/19 Levofloxacin [Levaquin] 500 mg PO DAILY 03/23/19 03/23/19 Allergies Allergy/AdvReac Type Severity Reaction Status Date / Time No Known Allergies Allergy Verified 03/23/19 08:59 Review of Systems ROS Statement: Those systems with pertinent positive or pertinent negative responses have been documented in the HPI. ROS Other: All systems not noted in ROS Statement are negative. Constitutional: Denies: fever, chills, weakness Respiratory: Denies: cough, dyspnea Cardiovascular: Denies: chest pain, palpitations, edema Gastrointestinal: Reports: abdominal pain, nausea. Denies: vomiting, diarrhea, melena, hematochezia Genitourinary: Denies: dysuria, hematuria Musculoskeletal: Denies: back pain Skin: Denies: rash Neurological: Denies: headache, weakness Past Medical History Past Medical History: Atrial Fibrillation, Cancer, Hyperlipidemia, Hypertension, Myocardial Infarction ([place]), Pneumonia Additional Past Medical History / Comment(s): arrhythmia was previuosly charted but pt denies this, chronic lymphocytic leukemia , inguinal hernia, hx skin cancer, nstemi 9-16 per summary-pt not aware of this. had shigelles vaccine 2011 and in 2013 got a case of the shingelles. 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 murmur."stroke behind lt eye" Last Myocardial Infarction Date:: 1997 History of Any Multi-Drug Resistant Organisms: None Reported Past Surgical History: Hernia Repair, Orthopedic Surgery, Tonsillectomy Additional Past Surgical History / Comment(s): bilateral rotator cuffs, cataracts, umb hernia repair, rt axilla lymph node bx.colonscopy Past Anesthesia/Blood Transfusion Reactions: No Reported Reaction Additional Past Anesthesia/Blood Transfusion Reaction / Comment(s): clausterphobia. had blood transfusion- no reaction Past Psychological History: No Psychological Hx Reported Smoking Status: Former smoker Past Alcohol Use History: None Reported Past Drug Use History: None Reported - Past Family History Mother Family Medical History: No Reported History Additional Family Medical History / Comment(s): pt stated his mom was healthy never went to the . dropped at age 70 Father Family Medical History: Congestive Heart Failure (CHF), Myocardial Infarction (NV), Vascular Disorder Additional Family Medical History / Comment(s): at age 75. hx heavy smoker General Exam General appearance: alert, in no apparent distress Head exam: Present: atraumatic, normocephalic Eye exam: Present: normal appearance. Absent: scleral icterus, conjunctival injection ENT exam: Present: normal oropharynx Neck exam: Present: normal inspection Respiratory exam: Present: normal lung sounds bilaterally. Absent: respiratory distress, wheezes, rales, rhonchi, stridor Cardiovascular Exam: Present: regular rate, normal rhythm, normal heart sounds. Absent: systolic murmur, diastolic murmur, rubs, gallop GI/Abdominal exam: Present: distended, tenderness. Absent: guarding, rebound, rigid, mass, pulsatile mass, hernia Extremities exam: Present: normal inspection, normal capillary refill. Absent: pedal edema, calf tenderness Back exam: Present: normal inspection. Absent: CVA tenderness (R), CVA tendern ess (L) Neurological exam: Present: alert Skin exam: Present: warm, dry, intact, normal color. Absent: rash Course Vital Signs 03/23/19 03/23/19 03/23/19 05:14 06:44 07:30 Temperature 97.5 F L Pulse Rate 72 76 82 Pulse Rate [ Pulse Oximetery ] Respiratory 18 19 18 Rate Blood Pressure 149/87 156/90 164/95 Blood Pressure [Left Arm] O2 Sat by Pulse 97 96 96 Oximetry 03/23/19 03/23/19 03/23/19 08:30 09:00 09:30 Temperature Pulse Rate 76 80 78 Pulse Rate [ Pulse Oximetery ] Respiratory 18 18 18 Rate Blood Pressure 168/92 139/89 146/93 Blood Pressure [Left Arm] O2 Sat by Pulse 97 92 L 95 Oximetry 03/23/19 03/23/19 10:00 10:43 Temperature 98.2 F Pulse Rate 77 Pulse Rate [ 89 Pulse Oximetery ] Respiratory 18 16 Rate Blood Pressure 140/91 Blood Pressure 83/56 [Left Arm] O2 Sat by Pulse 94 L 97 Oximetry Medical Decision Making - Lab Data Result diagrams: 03/25/19 12:11 03/26/19 02:40 Lab Results 03/23/19 03/23/19 03/23/19 Range/Units 05:32 05:32 05:32 WBC 64.4 H* (3.8-10.6) k/uL RBC 3.94 L (4.30-5.90) m/uL Hgb 11.3 L (13.0-17.5) gm/dL Hct 35.2 L (39.0-53.0) % MCV 89.3 (80.0-100.0) fL MCH 28.8 (25.0-35.0) pg MCHC 32.2 (31.0-37.0) g/dL RDW 14.6 (11.5-15.5) % Plt Count 164 (150-450) k/uL Neutrophils % (Manual) 7 % Lymphocytes % (Manual) 93 % Neutrophils # (Manual) 4.51 (1.3-7.7) k/uL Lymphocytes # (Manual) 59.89 H (1.0-4.8) k/uL Nucleated RBCs 0 (0-0) /100 WBC Differential Comment Manual Slide Review Performed Sodium 134 L (137-145) mmol/L Potassium 4.9 (3.5-5.1) mmol/L Chloride 103 (98-107) mmol/L Carbon Dioxide 19 L (22-30) mmol/L Anion Gap 12 mmol/L BUN 14 (9-20) mg/dL Creatinine 0.98 (0.66-1.25) mg/dL Est GFR (CKD-EPI)AfAm 85 (>60 ml/min/1.73 sqM) Est GFR (CKD-EPI)NonAf 73 (>60 ml/min/1.73 sqM) Glucose 182 H (74-99) mg/dL Lactic Ac Sepsis Rflx Plasma Lactic Acid Ovidio 2.6 H* (0.7-2.0) mmol/L Uric Acid (3.5-8.5) mg/dL Calcium 9.4 (8.4-10.2) mg/dL Phosphorus (2.5-4.5) mg/dL Magnesium (1.6-2.3) mg/dL Total Bilirubin 1.7 H (0.2-1.3) mg/dL AST 23 (17-59) U/L ALT 10 L (21-72) U/L Alkaline Phosphatase 68 (38-126) U/L Lactate Dehydrogenase (313-618) U/L Troponin I (0.000-0.034) ng/mL Total Protein 6.1 L (6.3-8.2) g/dL Albumin 4.0 (3.5-5.0) g/dL Amylase 35 (30-110) U/L Lipase 38 (23-300) U/L Urine Color Urine Appearance (Clear) Urine pH (5.0-8.0) Ur Specific Ariton (1.001-1.035) Urine Protein (Negative) Urine Glucose (UA) (Negative) Urine Ketones (Negative) Urine Blood (Negative) Urine Nitrite (Negative) Urine Bilirubin (Negative) Urine Urobilinogen (<2.0) mg/dL Ur Leukocyte Esterase (Negative) 03/23/19 03/23/19 03/23/19 Range/Units 05:32 05:32 06:18 WBC (3.8-10.6) k/uL RBC (4.30-5.90) m/uL Hgb (13.0-17.5) gm/dL Hct (39.0-53.0) % MCV (80.0-100.0) fL MCH (25.0-35.0) pg MCHC (31.0-37.0) g/dL RDW (11.5-15.5) % Plt Count (150-450) k/uL Neutrophils % (Manual) % Lymphocytes % (Manual) % Neutrophils # (Manual) (1.3-7.7) k/uL Lymphocytes # (Manual) (1.0-4.8) k/uL Nucleated RBCs (0-0) /100 WBC Differential Comment Manual Slide Review Sodium (137-145) mmol/L Potassium (3.5-5.1) mmol/L Chloride (98-107) mmol/L Carbon Dioxide (22-30) mmol/L Anion Gap mmol/L BUN (9-20) mg/dL Creatinine (0.66-1.25) mg/dL Est GFR (CKD-EPI)AfAm (>60 ml/min/1.73 sqM) Est GFR (CKD-EPI)NonAf (>60 ml/min/1.73 sqM) Glucose (74-99) mg/dL Lactic Ac Sepsis Rflx Y Plasma Lactic Acid Ovidio (0.7-2.0) mmol/L Uric Acid 6.4 (3.5-8.5) mg/dL Calcium (8.4-10.2) mg/dL Phosphorus 3.5 (2.5-4.5) mg/dL Magnesium 1.8 (1.6-2.3) mg/dL Total Bilirubin (0.2-1.3) mg/dL AST (17-59) U/L ALT (21-72) U/L Alkaline Phosphatase (38-126) U/L Lactate Dehydrogenase 670 H (313-618) U/L Troponin I <0.012 (0.000-0.034) ng/mL Total Protein (6.3-8.2) g/dL Albumin (3.5-5.0) g/dL Amylase (30-110) U/L Lipase (23-300) U/L Urine Color Urine Appearance (Clear) Urine pH (5.0-8.0) Ur Specific Ariton (1.001-1.035) Urine Protein (Negative) Urine Glucose (UA) (Negative) Urine Ketones (Negative) Urine Blood (Negative) Urine Nitrite (Negative) Urine Bilirubin (Negative) Urine Urobilinogen (<2.0) mg/dL Ur Leukocyte Esterase (Negative) 03/23/19 Range/Units 07:40 WBC (3.8-10.6) k/uL RBC (4.30-5.90) m/uL Hgb (13.0-17.5) gm/dL Hct (39.0-53.0) % MCV (80.0-100.0) fL MCH (25.0-35.0) pg MCHC (31.0-37.0) g/dL RDW (11.5-15.5) % Plt Count (150-450) k/uL Neutrophils % (Manual) % Lymphocytes % (Manual) % Neutrophils # (Manual) (1.3-7.7) k/uL Lymphocytes # (Manual) (1.0-4.8) k/uL Nucleated RBCs (0-0) /100 WBC Differential Comment Manual Slide Review Sodium (137-145) mmol/L Potassium (3.5-5.1) mmol/L Chloride (98-107) mmol/L Carbon Dioxide (22-30) mmol/L Anion Gap mmol/L BUN (9-20) mg/dL Creatinine (0.66-1.25) mg/dL Est GFR (CKD-EPI)AfAm (>60 ml/min/1.73 sqM) Est GFR (CKD-EPI)NonAf (>60 ml/min/1.73 sqM) Glucose (74-99) mg/dL Lactic Ac Sepsis Rflx Plasma Lactic Acid Ovidio (0.7-2.0) mmol/L Uric Acid (3.5-8.5) mg/dL Calcium (8.4-10.2) mg/dL Phosphorus (2.5-4.5) mg/dL Magnesium (1.6-2.3) mg/dL Total Bilirubin (0.2-1.3) mg/dL AST (17-59) U/L ALT (21-72) U/L Alkaline Phosphatase (38-126) U/L Lactate Dehydrogenase (313-618) U/L Troponin I (0.000-0.034) ng/mL Total Protein (6.3-8.2) g/dL Albumin (3.5-5.0) g/dL Amylase (30-110) U/L Lipase (23-300) U/L Urine Color Yellow Urine Appearance Clear (Clear) Urine pH 5.5 (5.0-8.0) Ur Specific Ariton 1.021 (1.001-1.035) Urine Protein Trace H (Negative) Urine Glucose (UA) Negative (Negative) Urine Ketones 1+ H (Negative) Urine Blood Negative (Negative) Urine Nitrite Negative (Negative) Urine Bilirubin Negative (Negative) Urine Urobilinogen <2.0 (<2.0) mg/dL Ur Leukocyte Esterase Negative (Negative) Disposition Clinical Impression: Abdominal pain, Chronic lymphocytic leukemia, Leukocytosis Disposition: ADMITTED IP TO THIS HOSP Condition: Serious
[2019-03-23 06:18] LABS: Lymphocytes # (M) 59.89 k/uL (1.0-4.8); Neutrophils # (M) 4.51 k/uL (1.3-7.7); Neutrophils % (M) 7 %; Nucleated Red Blood Cells 0 /100 WBC (0-0); Total Cells Counted 200
[2019-03-23 06:19] LABS: Potassium 4.9 mmol/L (3.5-5.1)
[2019-03-23] MEDS ORDERED: ONDANSETRON 4 MG/2 ML VIAL IVP STA (07:09)
[2019-03-23] MEDS ORDERED: SODIUM CHLORIDE 0.9% 1,000 ML IV ONE (07:10)
--- NOTE | 2019-03-23 07:49 | CT ---
EXAM: CT Abdomen and Pelvis Without Intravenous Contrast CLINICAL HISTORY: ITS.REASON CT Reason: Pain Pt c/o mid abd pain and pelvic pain starting at Midnight. Pt vomited once since he has been in the [facility]. H/O Leukemia with last chemo 1.5 years ago. Sx hx- hernia repair TECHNIQUE: Axial computed tomography images of the abdomen and pelvis without intravenous contrast. CTDI is 9.8 mGy and DLP is 569.1 mGy-cm. This CT exam was performed using one or more of the following dose reduction techniques: automated exposure control, adjustment of the mA and/or kV according to patient size, and/or use of iterative reconstruction technique. COMPARISON: 09/07/18 FINDINGS: Lung bases: Mild bibasilar atelectasis or airspace disease, greater on the right side. Somewhat similar to the prior. ABDOMEN: Liver: Unremarkable. Gallbladder and bile ducts: Gallstones. No ductal dilation. Pancreas: Unremarkable. No ductal dilation. Spleen: Unremarkable. No splenomegaly. Adrenals: Unremarkable. No mass. Kidneys and ureters: Left kidney is displaced laterally by the large retroperitoneal mass. Limited evaluation of renal vessels on this noncontrast study which are likely attenuated. Stable low-density lesion arising from the right kidney or just adjacent to it. No hydronephrosis. Stomach and bowel: Colonic diverticulosis. No bowel obstruction. No mucosal thickening. PELVIS: Appendix: Normal appendix. Bladder: Unremarkable. No stones. Reproductive: Enlarged prostate. ABDOMEN and PELVIS: Intraperitoneal space: Small amount of free fluid in the pelvis. No free air or discrete fluid collection visualized. Multiple anterior abdominal peritoneal nodules. No free air. Bones/joints: Stable sclerotic lesions in the left acetabulum and in the thoracic spine. No acute fracture. No dislocation. Soft tissues: Unremarkable. Vasculature: Marked vascular calcifications. Lymph nodes: Interval increase of bulky retroperitoneal mass/adenopathy which encases the aorta, renal arteries. Approximately 18 x 12 cm transverse x 20 cm craniocaudal. Was 12 x 8 x 17 cm. Mesenteric adenopathy appears similar to the prior. Partially visualized mediastinal adenopathy. Similar pelvic and inguinal adenopathy. Mild fat stranding in the left pelvis around the left pelvic adenopathy. Somewhat similar to the prior. IMPRESSION: 1.Interval increase of bulky retroperitoneal mass/adenopathy which encases the aorta, renal arteries. Approximately 18 x 12 cm transverse x 20 cm craniocaudal. Was 12 x 8 x 17 cm. 2. Mesenteric, pelvic, inguinal, mediastinal adenopathy and intra- abdominal peritoneal nodules, similar to the prior. 3. Mild fat stranding in the left pelvis around the left pelvic adenopathy. Somewhat similar to the prior. Since there is also sigmoid diverticulosis, differential diagnosis includes acute diverticulitis, although thought less likely. 4. Colonic diverticulosis. 5. Gallstones.
[2019-03-23] MEDS ORDERED: HYDROmorphone 1 MG/ML 1 ML SYRINGE IVP STA (07:50)
[2019-03-23 07:52] LABS: Appearance,Urine Clear (Clear); Bilirubin,Urine Negative (Negative); Blood,Urine Negative (Negative); Color,Urine Yellow; Glucose,Urine (UA) Negative (Negative); Ketones,Urine 1+ (Negative); Leukocyte Esterase,Urine Negative (Negative); Nitrite,Urine Negative (Negative); PH, Urine 5.5 (5.0-8.0); Protein,Urine Trace (Negative); Specific Gravity,Urine 1.021 (1.001-1.035); Urobilinogen,Urine <2.0 mg/dL (<2.0)
[2019-03-23] MEDS ORDERED: NALOXONE 0.4 MG/ML 1 ML VIAL IV PRN (08:08)
[2019-03-23] MEDS: SODIUM CHLORIDE 0.9% 1,000 ML IV SCH (08:19)
[2019-03-23 10:44] LABS: Glucose,Whole Blood 202 mg/dL (75-99)
[2019-03-23] MEDS ORDERED: SODIUM CHLORIDE 0.9% 500 ML 500 ML IV ONE (11:05)
[2019-03-23 11:38] LABS: HCT 29.1 % (39.0-53.0); MCH 30.5 pg (25.0-35.0); MCHC 33.1 g/dL (31.0-37.0); MCV 91.9 fL (80.0-100.0); Mean Platelet Volume 7.7; Platelet Count 155 k/uL (150-450); RBC 3.17 m/uL (4.30-5.90); RDW 14.9 % (11.5-15.5)
[2019-03-23 11:44] LABS: HGB 9.7 gm/dL (13.0-17.5); WBC 66.2 k/uL (3.8-10.6)
[2019-03-23 13:02] LABS: Band Neutrophils % 2 %; Lymphocytes # (M) 51.64 k/uL (1.0-4.8); Monocytes # (M) 1.99 k/uL (0-1.0); Neutrophils % (M) 18 %; Nucleated Red Blood Cells 0 /100 WBC (0-0); Total Cells Counted 200
[2019-03-23] MEDS ORDERED: VANCOMYCIN 1,500 MG in SODIUM CHLORIDE 0.9% 250 ML IVPB SCH (14:00)
[2019-03-23] MEDS: CEFEPIME 2 GM in SODIUM CHLORIDE 0.9% 100 ML IVPB SCH ×2 (15:22→22:46)
[2019-03-23] MEDS: ONDANSETRON 4 MG/2 ML VIAL IVP PRN ×2 (15:24→20:13)
[2019-03-23] MEDS: MORPHINE SULFATE 4 MG/ML SYRINGE IV PRN ×2 (15:34→20:06)
[2019-03-23 16:41] LABS: Magnesium 1.8 mg/dL (1.6-2.3); Uric Acid 6.4 mg/dL (3.5-8.5)
[2019-03-23 17:01] LABS: Phosphorus 3.5 mg/dL (2.5-4.5)
--- NOTE | 2019-03-23 17:34 | P.HPIM ---
History of Present Illness H&P Date: 03/23/19 Chief Complaint: Abdominal pain 78-year-old male with PMH of CLL, hypertension, heart failure with reduced ejection fraction, atrial fibrillation, hypertension, hyperlipidemia presents to the ED for abdominal pain. Patient states that the abdominal pain started around 11 PM last night. Pain was constant and stabbing in nature. Pain was located in the bilateral lower abdomen. Patient reported that the pain radiated to the back. Patient denies any changes with meals. He also endorses 2 episodes of nausea and nonbilious nonbloody vomiting today. Patient also complains of cough that is productive of green sputum. He also experienced night sweats last night. When symptoms persisted, this prompted him to come to the ED. Patient denies any headache, lower extremity edema, fever, chest pain, shortness of breath, palpitations, changes in urination or bowel habits. No changes in appetite or weight. He denies any dizziness, numbness/weakness/tingling of the extremities. In the ED, patient was noted to be hypotensive as low as 83/56 which responded to fluid bolus. CBC showed a leukocytosis of 64.4, anemia of 11.3. CMP showed sodium of 134, bicarbonate of 19, glucose of 182, T bili of 1.7. Lactate dehydrogenase of 670. Troponin was less than 0.012. Lactic acid was 2.6. CT of the abdomen and pelvis showed retroperitoneal adenopathy which encases the aorta and renal arteries approximately 18 x 12 cm transverse by 20 cm craniocaudal. Patient is admitted for abdominal pain, management of CLL, oncology on consult. Review of Systems Pertinent positives and negatives as discussed in HPI, a complete review of systems was performed and all other systems are negative. 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 Last Myocardial Infarction Date:: 1997 History of Any Multi-Drug Resistant Organisms: None Reported Past Surgical History: Hernia Repair, Orthopedic Surgery, Tonsillectomy Additional Past Surgical History / Comment(s): R axillary lymph node biopsy, BMB, EGD, colonoscopies, umbilical hernia repair, bilateral cataract removal/lens implants, skin cancer removal, bilateral rotator cuff repairs, midline IV since removed Past Anesthesia/Blood Transfusion Reactions: No Reported Reaction Additional Past Anesthesia/Blood Transfusion Reaction / Comment(s): Clausterphobia. Pt had blood transfusion- no reaction Smoking Status: Former smoker - Past Family History Mother Family Medical History: No Reported History Additional Family Medical History / Comment(s): Pt stated his mom was healthy but never went to the doctors. Father Family Medical History: Congestive Heart Failure (CHF), Myocardial Infarction (VT), Vascular Disorder Additional Family Medical History / Comment(s): Father at age 75. He was a heavy smoker Medications and Allergies Home Medications Medication Instructions Recorded Confirmed Type Propafenone [Rythmol] 225 mg PO BID 12/04/15 03/23/19 History Simvastatin [Zocor] 40 mg PO HS 01/23/18 03/23/19 History Metoprolol Tartrate [Lopressor] 25 mg PO BID 12/15/18 03/23/19 History Levofloxacin [Levaquin] 500 mg PO DAILY 03/23/19 03/23/19 History Allergies Allergy/AdvReac Type Severity Reaction Status Date / Time No Known Allergies Allergy Verified 03/23/19 08:59 Physical Exam Vitals: Vital Signs Temp Pulse Pulse Resp BP BP Pulse Ox 03/23/19 15:37 98 F 95 16 119/74 97 03/23/19 14:13 94 107/67 03/23/19 14:11 107 H 82/48 03/23/19 14:01 90 115/70 03/23/19 13:46 91 111/68 03/23/19 13:31 89 113/69 03/23/19 13:16 90 109/69 03/23/19 12:59 91 109/68 03/23/19 12:30 88 125/76 03/23/19 11:32 97.8 F 84 14 112/72 95 03/23/19 11:23 96.6 F L 89 99/72 03/23/19 10:55 90/63 05/16/19 10:43 89 16 83/56 97 03/23/19 10:00 98.2 F 77 18 140/91 94 L 03/23/19 09:30 78 18 146/93 95 03/23/19 09:00 80 18 139/89 92 L 03/23/19 08:30 76 18 168/92 97 03/23/19 07:30 82 18 164/95 96 03/23/19 06:44 76 19 156/90 96 03/23/19 05:14 97.5 F L 72 18 149/87 97 Intake and Output 03/23/19 03/23/19 03/23/19 06:59 14:59 22:59 Intake Total 700 Balance 700 Intake: Intake, IV Titration 700 Amount Sodium Chloride 0.9% 1, 200 000 ml @ 100 mls/hr IV . Q10H [facility] Rx#:[id number] Sodium Chloride 0.9% 500 500 ml 500 ml @ 999 mls/hr IV .Q31M [facility] Rx#:[id number] Other: Weight 79.379 kg General: [non toxic], [no distress], [appears at stated age] Derm: [warm], [dry] Head: [atraumatic], [normocephalic], [symmetric] Eyes: [no lid lag], [anicteric sclera] Mouth: [no lip lesion], [mucus membranes moist] Cardiovascular: [S1S2 reg], [no murmur], [positive DP pulse bilateral] Lungs: [Decreased breath sounds bilateral], [no rhonchi, no rales] , [no accessory muscle use] Abdominal: [soft], [generalized tenderness to palpation in all 4 quadrants without rebound], [no guarding], [no appreciable organomegaly] Ext: [no gross muscle atrophy], [no edema], [no contractures] Neuro: [ CN II-XI grossly intact], [no focal neuro deficits] Psych: [Alert], [oriented], [appropriate affect] Results CBC & Chem 7: 03/23/19 11:02 03/23/19 05:32 Labs: Abnormal Lab Results - Last 24 Hours (Table) 03/23/19 03/23/19 03/23/19 Range/Units 05:32 05:32 05:32 WBC 64.4 H* (3.8-10.6) k/uL RBC 3.94 L (4.30-5.90) m/uL Hgb 11.3 L (13.0-17.5) gm/dL Hct 35.2 L (39.0-53.0) % Neutrophils # (Manual) (1.3-7.7) k/uL Lymphocytes # (Manual) 59.89 H (1.0-4.8) k/uL Monocytes # (Manual) (0-1.0) k/uL Sodium 134 L (137-145) mmol/L Carbon Dioxide 19 L (22-30) mmol/L Glucose 182 H (74-99) mg/dL POC Glucose (mg/dL) (75-99) mg/dL Plasma Lactic Acid Ovidio 2.6 H* (0.7-2.0) mmol/L Total Bilirubin 1.7 H (0.2-1.3) mg/dL ALT 10 L (21-72) U/L Lactate Dehydrogenase (313-618) U/L Total Protein 6.1 L (6.3-8.2) g/dL Urine Protein (Negative) Urine Ketones (Negative) 03/23/19 03/23/19 03/23/19 Range/Units 05:32 07:40 10:43 WBC (3.8-10.6) k/uL RBC (4.30-5.90) m/uL Hgb (13.0-17.5) gm/dL Hct (39.0-53.0) % Neutrophils # (Manual) (1.3-7.7) k/uL Lymphocytes # (Manual) (1.0-4.8) k/uL Monocytes # (Manual) (0-1.0) k/uL Sodium (137-145) mmol/L Carbon Dioxide (22-30) mmol/L Glucose (74-99) mg/dL POC Glucose (mg/dL) 202 H (75-99) mg/dL Plasma Lactic Acid Ovidio (0.7-2.0) mmol/L Total Bilirubin (0.2-1.3) mg/dL ALT (21-72) U/L Lactate Dehydrogenase 670 H (313-618) U/L Total Protein (6.3-8.2) g/dL Urine Protein Trace H (Negative) Urine Ketones 1+ H (Negative) 03/23/19 03/23/19 Range/Units 11:02 11:02 WBC 66.2 H* (3.8-10.6) k/uL RBC 3.17 L (4.30-5.90) m/uL Hgb 9.7 L D (13.0-17.5) gm/dL Hct 29.1 L (39.0-53.0) % Neutrophils # (Manual) 13.20 H (1.3-7.7) k/uL Lymphocytes # (Manual) 51.64 H (1.0-4.8) k/uL Monocytes # (Manual) 1.99 H (0-1.0) k/uL Sodium (137-145) mmol/L Carbon Dioxide (22-30) mmol/L Glucose (74-99) mg/dL POC Glucose (mg/dL) (75-99) mg/dL Plasma Lactic Acid Ovidio 3.7 H* (0.7-2.0) mmol/L Total Bilirubin (0.2-1.3) mg/dL ALT (21-72) U/L Lactate Dehydrogenase (313-618) U/L Total Protein (6.3-8.2) g/dL Urine Protein (Negative) Urine Ketones (Negative) Thrombosis Risk Factor Assmnt - Choose All That Apply Any of the Below Risk Factors Present?: Yes Each Factor Represents 1 point: Obesity (BMI >25) Other Risk Factors: Yes Each Risk Factor Represents 2 Points: Malignancy Each Risk Factor Represents 3 Points: Age 75 years or older Other congenital or acquired thrombophilia - If yes, enter type in comment: No Thrombosis Risk Factor Assessment Total Risk Factor Score: 6 Thrombosis Risk Factor Assessment Level: High Risk Assessment and Plan Assessment: Assessment and Plan Abdominal pain likely secondary to adenopathy seen on CT. CLL with leukocytosis of 64.4 Sepsis Lactic acidosis History of CAD/CVA Hypertension Atrial fibrillation Hyperlipidemia CT shows retroperitoneal adenopathy which encases the aorta and renal arteries. UA negative for nitrite or leukocyte esterase. Amylase and lipase within normal limits. Plan: Zofran as needed for nausea and vomiting. Morphine as needed for severe pain. Follow oncology recommendations. Leukocytosis of 64.4. Previous diagnosis of CLL, taken care of by Dr. Hernandez. Plan: Daily CBC. Follow oncology recommendations. Leukocytosis of 64.4, BP as low as 82/48, tachycardic to 107, lactic acid of 2.6 with no clear source of infection. Given his immunocompromise state, there is concerns for sepsis. Plan: Start vancomycin and cefepime IV. Tylenol as needed for fever. Continue normal saline at 100 mL per hour. Follow repeat lactic acid. Follow blood and urine cultures. Daily CBC. Follow ID consultation. Telemetry monitoring. Lactic acid 2.6-3.7 likely secondary to dehydration but concerns for sepsis. Plan: Continue normal saline at 100 mL/h. Continue IV antibiotics. Follow repeat lactic acid. 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 Plan: Continue aspirin and simvastatin. BP 119/74. Plan: Continue metoprolol. Monitor vitals, adjust medications as necessary. Currently rate controlled. Plan: Continue metoprolol. Continue Propafenone. We'll need to discuss anticoagulation prior to discharge. Lipid panel within normal limits except for HDL of and July 2016. Plan: Continue simvastatin. DVT prophylaxis: [Lovenox] Discussed with: [Patient] Anticipated discharge: [Home] Anticipated discharge place: [2-3 days] A total of [45] minutes was spent on the care of this complex patient more than 50% of the time was spent in counseling and care coordination. Patient admitted for abdominal pain, found to have retroperitoneal adenopathy, oncology consulted. Found to be hypotensive with elevated lactic acid, concerns for sepsis, started on broad-spectrum antibiotics, ID on consult. Patient is pending clinical improvement. He names his Yamilet the decision maker indicates that he can't make decisions for himself. Patient reiterates wanting to be full code.
[2019-03-23] MEDS: METOPROLOL TARTRATE 25 MG TAB PO SCH (22:45)
[2019-03-23] MEDS: ATORVASTATIN 20 MG TAB PO SCH (22:45)
[2019-03-23] MEDS: PROPAFENONE 225 MG TAB PO SCH (22:46)
--- NOTE | 2019-03-24 00:12 | P.CONS ---
History of Present Illness - Reason for Consult Consult date: 03/23/19 Sepsis and antibiotic recommendation Requesting physician: Riri Deng - Chief Complaint Abdominal pain since around midnight - History of Present Illness Patient is 78-year-old male in the past medical history significant for CLL, presenting to the [facility] ER early this morning with a chief complaints of abdominal pain that started around 11 PM last night the patient patient has been intolerant abdominal area describing it to be colicky almost 10 out of 10 when severe the patient has felt nauseated with it and did have 2 episodes of vomiting. Denies having any diarrhea or any constipation the patient denies high-grade fever however did have some chills denies having any chest pain shortness of breath minimal cough though no urinary symptoms and no urinary symptoms with the symptoms the patient presented to the [facility] ER the patient did have a CT of abdominal pelvis completed today shows increase in size of her to peritoneal mass encroaching near [place] and the vasculature increase in the size of lymphadenopathy and some fatty stranding in the left pelvic area with question of possible diverticulitis patient did have elevated lactic acid of 2.6 and repeat was 3.7 patient white count has been elevated at 66,000 but no fever was recorded the patient has been started on cefepime and vancomycin and infectious disease was consulted for further recommendation according antibiotic therapy Review of Systems CONSTITUTIONAL: Positive for weakness. Some chills but denies high-grade Fever EYES: No complaint. ENT:No complaint. RESPIRATORY: As per history of present illness CARDIOVASCULAR: No complaint. GENITOURINARY: No complaint. GASTROINTESTINAL: As per history of present. MUSCULOSKELETAL: No complaint. INTEGUMENTARY: No complaint. PSYCHOLOGICAL: No complaint. ENDOCRINE: No complaint. NEUROLOGIC: No complaint. 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 Last Myocardial Infarction Date:: 1997 History of Any Multi-Drug Resistant Organisms: None Reported Past Surgical History: Hernia Repair, Orthopedic Surgery, Tonsillectomy Additional Past Surgical History / Comment(s): R axillary lymph node biopsy, BMB, EGD, colonoscopies, umbilical hernia repair, bilateral cataract removal /lens implants, skin cancer removal, bilateral rotator cuff repairs, midline IV since removed Past Anesthesia/Blood Transfusion Reactions: No Reported Reaction Additional Past Anesthesia/Blood Transfusion Reaction / Comm: Clausterphobia. Pt had blood transfusion- no reaction Smoking Status: Former smoker - Past Family History Mother Family Medical History: No Reported History Additional Family Medical History / Comment(s): Pt stated his mom was healthy but never went to the doctors. Father Family Medical History: Congestive Heart Failure (CHF), Myocardial Infarction (NC), Vascular Disorder Additional Family Medical History / Comment(s): Father at age 75. He was a heavy smoker Medications and Allergies Home Medications Medication Instructions Recorded Confirmed Type Propafenone [Rythmol] 225 mg PO BID 12/04/15 03/23/19 History Simvastatin [Zocor] 40 mg PO HS 01/23/18 03/23/19 History Metoprolol Tartrate [Lopressor] 25 mg PO BID 12/15/18 03/23/19 History Levofloxacin [Levaquin] 500 mg PO DAILY 03/23/19 03/23/19 History Allergies Allergy/AdvReac Type Severity Reaction Status Date / Time No Known Allergies Allergy Verified 03/23/19 08:59 Physical Exam Vitals: Vital Signs Temp Pulse Pulse Resp BP BP Pulse Ox 03/23/19 15:37 98 F 95 16 119/74 97 03/23/19 14:13 94 107/67 03/23/19 14:11 107 H 82/48 03/23/19 14:01 90 115/70 03/23/19 13:46 91 111/68 03/23/19 13:31 89 113/69 03/23/19 13:16 90 109/69 03/23/19 12:59 91 109/68 03/23/19 12:30 88 125/76 03/23/19 11:32 97.8 F 84 14 112/72 95 03/23/19 11:23 96.6 F L 89 99/72 03/23/19 10:55 90/63 03/23/19 10:43 89 16 83/56 97 03/23/19 10:00 98.2 F 77 18 140/91 94 L 03/23/19 09:30 78 18 146/93 95 03/23/19 09:00 80 18 139/89 92 L 03/23/19 08:30 76 18 168/92 97 03/23/19 07:30 82 18 164/95 96 03/23/19 06:44 76 19 156/90 96 03/23/19 05:14 97.5 F L 72 18 149/87 97 Intake and Output 03/23/19 03/23/19 03/23/19 06:59 14:59 22:59 Intake Total 700 Balance 700 Intake: Intake, IV Titration 700 Amount Sodium Chloride 0.9% 1, 200 000 ml @ 100 mls/hr IV . Q10H [facility] Rx#:[id number] Sodium Chloride 0.9% 500 500 ml 500 ml @ 999 mls/hr IV .Q31M [facility] Rx#:[id number] Other: Weight 79.379 kg GENERAL DESCRIPTION: Elderly male lying in bed, no distress. No tachypnea or a ccessory muscle of respiration use. HEENT: Shows Pallor , no scleral icterus. Oral mucous membrane is dry. No pharyngeal erythema or thrush NECK: Trachea central, no thyromegaly. LUNGS: Unlabored breathing. Clear to auscultation anteriorly. No wheeze or crackle. HEART: S1, S2, regular rate and rhythm. No loud murmur ABDOMEN: Soft, and left lower tenderness , no guarding or rigidity, no organomegaly EXTREMITIES: No edema of feet. SKIN: No rash, no masses palpable. NEUROLOGICAL: The patient is awake, alert, oriented x3, mood and affect normal. Results CBC & Chem 7: 03/23/19 11:02 03/23/19 05:32 Labs: Abnormal Lab Results - Last 24 Hours (Table) 03/23/19 03/23/19 03/23/19 Range/Units 05:32 05:32 05:32 WBC 64.4 H* (3.8-10.6) k/uL RBC 3.94 L (4.30-5.90) m/uL Hgb 11.3 L (13.0-17.5) gm/dL Hct 35.2 L (39.0-53.0) % Neutrophils # (Manual) (1.3-7.7) k/uL Lymphocytes # (Manual) 59.89 H (1.0-4.8) k/uL Monocytes # (Manual) (0-1.0) k/uL Sodium 134 L (137-145) mmol/L Carbon Dioxide 19 L (22-30) mmol/L Glucose 182 H (74-99) mg/dL POC Glucose (mg/dL) (75-99) mg/dL Plasma Lactic Acid Ovidio 2.6 H* (0.7-2.0) mmol/L Total Bilirubin 1.7 H (0.2-1.3) mg/dL ALT 10 L (21-72) U/L Total Protein 6.1 L (6.3-8.2) g/dL Urine Protein (Negative) Urine Ketones (Negative) 03/23/19 03/23/19 03/23/19 Range/Units 07:40 10:43 11:02 WBC (3.8-10.6) k/uL RBC (4.30-5.90) m/uL Hgb (13.0-17.5) gm/dL Hct (39.0-53.0) % Neutrophils # (Manual) (1.3-7.7) k/uL Lymphocytes # (Manual) (1.0-4.8) k/uL Monocytes # (Manual) (0-1.0) k/uL Sodium (137-145) mmol/L Carbon Dioxide (22-30) mmol/L Glucose (74-99) mg/dL POC Glucose (mg/dL) 202 H (75-99) mg/dL Plasma Lactic Acid Ovidio 3.7 H* (0.7-2.0) mmol/L Total Bilirubin (0.2-1.3) mg/dL ALT (21-72) U/L Total Protein (6.3-8.2) g/dL Urine Protein Trace H (Negative) Urine Ketones 1+ H (Negative) 03/23/19 Range/Units 11:02 WBC 66.2 H* (3.8-10.6) k/uL RBC 3.17 L (4.30-5.90) m/uL Hgb 9.7 L D (13.0-17.5) gm/dL Hct 29.1 L (39.0-53.0) % Neutrophils # (Manual) 13.20 H (1.3-7.7) k/uL Lymphocytes # (Manual) 51.64 H (1.0-4.8) k/uL Monocytes # (Manual) 1.99 H (0-1.0) k/uL Sodium (137-145) mmol/L Carbon Dioxide (22-30) mmol/L Glucose (74-99) mg/dL POC Glucose (mg/dL) (75-99) mg/dL Plasma Lactic Acid Ovidio (0.7-2.0) mmol/L Total Bilirubin (0.2-1.3) mg/dL ALT (21-72) U/L Total Protein (6.3-8.2) g/dL Urine Protein (Negative) Urine Ketones (Negative) Assessment and Plan Assessment: 1-patient with a history of CLL who presented to hospital acute lower abdominal pain in this patient who did have elevated lactic acid and significant increase in the size of the retroperitoneal as well as intra-abdominal lymphadenopathy with possible pressure on the abdominal viscera and a component of possible ischemic colitis as the patient noticed to have some soft tissue stranding in the left lower abdominal area we will need to cover for enteric gram-negative both aerobes and anaerobes and less likely gram positive infection Plan: 1-patient will be treated with cefepime 2 g every 12 hours and Flagyl 500 every 8hr 2-discontinue the vancomycin 3-IV fluids We will follow-up on clinical condition and cultures to further adjust medication if needed Thank you for this consultation will follow this patient along with you Time with Patient: Greater than 30
[2019-03-24] MEDS: HYDROcodone/APAP 5-325MG 1 EACH TAB PO PRN ×4 (01:01→20:18)
[2019-03-24] MEDS: MORPHINE SULFATE 4 MG/ML SYRINGE IV PRN ×5 (03:07→22:10)
[2019-03-24] MEDS: metroNIDAZOLE 500 MG TAB PO SCH ×3 (07:37→22:10)
[2019-03-24] MEDS: ENOXAPARIN 40 MG/0.4 ML SYRINGE SQ SCH (07:37)
[2019-03-24] MEDS: ASPIRIN 81 MG PO SCH (07:37)
[2019-03-24] MEDS: PROPAFENONE 225 MG TAB PO SCH ×2 (07:37→22:11)
[2019-03-24] MEDS: METOPROLOL TARTRATE 25 MG TAB PO SCH ×2 (07:37→22:10)
[2019-03-24] MEDS: SODIUM CHLORIDE 0.9% 1,000 ML IV SCH ×2 (07:38→20:18)
[2019-03-24 08:12] LABS: Albumin 3.1 g/dL (3.5-5.0); Calcium 8.1 mg/dL (8.4-10.2); Magnesium 2.1 mg/dL (1.6-2.3); Phosphorus 3.8 mg/dL (2.5-4.5); Potassium 4.7 mmol/L (3.5-5.1); Total Bilirubin 1.1 mg/dL (0.2-1.3); Total Protein 5.2 g/dL (6.3-8.2); Uric Acid 8.6 mg/dL (3.5-8.5)
[2019-03-24 08:15] LABS: HCT 21.4 % (39.0-53.0); MCH 30.3 pg (25.0-35.0); MCHC 34.2 g/dL (31.0-37.0); MCV 88.5 fL (80.0-100.0); Mean Platelet Volume 7.9; Platelet Count 117 k/uL (150-450); RBC 2.42 m/uL (4.30-5.90); RDW 14.8 % (11.5-15.5)
[2019-03-24 08:18] LABS: HGB 7.3 gm/dL (13.0-17.5); WBC 53.8 k/uL (3.8-10.6)
[2019-03-24] MEDS: CEFEPIME 2 GM in SODIUM CHLORIDE 0.9% 100 ML IVPB SCH ×2 (09:41→22:09)
[2019-03-24 10:52] LABS: Band Neutrophils % 1 %; Lymphocytes # (M) 45.19 k/uL (1.0-4.8); Monocytes # (M) 1.08 k/uL (0-1.0); Neutrophils % (M) 13 %; Nucleated Red Blood Cells 0 /100 WBC (0-0); Total Cells Counted 100
[2019-03-24 10:53] LABS: Poikilocytosis (M) Present; Polychromasia Present
[2019-03-24] MEDS: ONDANSETRON 4 MG/2 ML VIAL IVP PRN (11:35)
--- NOTE | 2019-03-24 13:18 | P.CONS ---
History of Present Illness - Reason for Consult Consult date: 03/23/19 hx: CLL Requesting physician: Omari Abad - Chief Complaint Abdominal Pain - History of Present Illness Mr. Lee is a very pleasant pt of Dr. Hernandez with a history of stage 0 CLL diagnosed in 2003, observation until 06/16 when he became symptomatic with increa sed WBC, decreased platelets and palpable adenopathy. He was treated with bendamustine and rituxan x 4 cycles, post treatment monitoring. He has required high dose steroid treatments through the years for episodes of thrombocytopenia (2010, 12/2011, 07/2012). In early 2013 he had a bone marrow aspiration and biopsy for persistent leukopenia, this showed CLL, as expected but, no new findings. He was treated with Rituxan x 4. He had recurrent low counts and lymphadenopathy and was treated again in 10/21. 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 He was treated with Rituxan and bendeka x 6, completed 12/25. 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 CT post treatment showed stable disease. He was seen in office March [address] Hernandez at that time so evidence of [place] progression, although was complaining of cough and shortness of breath. He was to have IVIG in office although this was not completed as he has now been admitted. 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 Last Myocardial Infarction Date:: 1997 History of Any Multi-Drug Resistant Organisms: None Reported Past Surgical History: Hernia Repair, Orthopedic Surgery, Tonsillectomy Additional Past Surgical History / Comment(s): R axillary lymph node biopsy, BMB, EGD, colonoscopies, umbilical hernia repair, bilateral cataract removal/lens implants, skin cancer removal, bilateral rotator cuff repairs, midline IV since removed Past Anesthesia/Blood Transfusion Reactions: No Reported Reaction Additional Past Anesthesia/Blood Transfusion Reaction / Comm: Clausterphobia. Pt had blood transfusion- no reaction Smoking Status: Former smoker - Past Family History Mother Family Medical History: No Reported History Additional Family Medical History / Comment(s): Pt stated his mom was healthy but never went to the doctors. Father Family Medical History: Congestive Heart Failure (CHF), Myocardial Infarction ([place]), Vascular Disorder Additional Family Medical History / Comment(s): Father at age 75. He was a heavy smoker Medications and Allergies Home Medications Medication Instructions Recorded Confirmed Type Propafenone [Rythmol] 225 mg PO BID 12/04/15 03/23/19 History Simvastatin [Zocor] 40 mg PO HS 01/23/18 03/23/19 History Metoprolol Tartrate [Lopressor] 25 mg PO BID 12/15/18 03/23/19 History Levofloxacin [Levaquin] 500 mg PO DAILY 03/23/19 03/23/19 History Allergies Allergy/AdvReac Type Severity Reaction Status Date / Time No Known Allergies Allergy Verified 03/23/19 08:59 Physical Exam Vitals: Vital Signs Temp Pulse Pulse Resp BP BP Pulse Ox 03/23/19 15:37 98 F 95 16 119/74 97 03/23/19 14:13 94 107/67 03/23/19 14:11 107 H 82/48 03/23/19 14:01 90 115/70 03/23/19 13:46 91 111/68 03/23/19 13:31 89 113/69 03/23/19 13:16 90 109/69 03/23/19 12:59 91 109/68 03/23/19 12:30 88 125/76 03/23/19 11:32 97.8 F 84 14 112/72 95 03/23/19 11:23 96.6 F L 89 99/72 03/23/19 10:55 90/63 03/23/19 10:43 89 16 83/56 97 03/23/19 10:00 98.2 F 77 18 140/91 94 L 03/23/19 09:30 78 18 146/93 95 03/23/19 09:00 80 18 139/89 92 L 03/23/19 08:30 76 18 168/92 97 03/23/19 07:30 82 18 164/95 96 03/23/19 06:44 76 19 156/90 96 03/23/19 05:14 97.5 F L 72 18 149/87 97 Intake and Output 03/23/19 03/23/19 03/23/19 06:59 14:59 22:59 Intake Total 700 Balance 700 Intake: Intake, IV Titration 700 Amount Sodium Chloride 0.9% 1, 200 000 ml @ 100 mls/hr IV . Q10H [facility] Rx#:[id number] Sodium Chloride 0.9% 500 500 ml 500 ml @ 999 mls/hr IV .Q31M [facility] Rx#:[id number] Other: Weight 79.379 kg - Constitutional General appearance: Present: cooperative, no acute distress - EENT Eyes: Present: EOMI, dentition normal, normal appearance ENT: Present: NA/AT, normal oropharynx - Neck Details: Supple, Trachea Midline Neck: Present: normal ROM - Respiratory Respiratory: bilateral: CTA (No increased effort) - Cardiovascular Rhythm: regular Heart sounds: normal: S1, S2 - Gastrointestinal General gastrointestinal: Present: distended, normal bowel sounds, soft, splenomegaly - Integumentary Integumentary: Present: pale - Neurologic Neurologic Comment(s): No focal Defects Neurologic: Present: CNII-XII intact - Musculoskeletal Musculoskeletal: Present: generalized weakness, strength equal bilaterally - Psychiatric Psychiatric: Present: A&O x's 3, appropriate affect, intact judgment & insight Results CBC & Chem 7: 03/24/19 07:19 03/24/19 07:19 Labs: Abnormal Lab Results - Last 24 Hours (Table) 03/23/19 03/23/19 03/23/19 Range/Units 05:32 05:32 05:32 WBC 64.4 H* (3.8-10.6) k/uL RBC 3.94 L (4.30-5.90) m/uL Hgb 11.3 L (13.0-17.5) gm/dL Hct 35.2 L (39.0-53.0) % Neutrophils # (Manual) (1.3-7.7) k/uL Lymphocytes # (Manual) 59.89 H (1.0-4.8) k/uL Monocytes # (Manual) (0-1.0) k/uL Sodium 134 L (137-145) mmol/L Carbon Dioxide 19 L (22-30) mmol/L Glucose 182 H (74-99) mg/dL POC Glucose (mg/dL) (75-99) mg/dL Plasma Lactic Acid Ovidio 2.6 H* (0.7-2.0) mmol/L Total Bilirubin 1.7 H (0.2-1.3) mg/dL ALT 10 L (21-72) U/L Total Protein 6.1 L (6.3-8.2) g/dL Urine Protein (Negative) Urine Ketones (Negative) 03/23/19 03/23/19 03/23/19 Range/Units 07:40 10:43 11:02 WBC (3.8-10.6) k/uL RBC (4.30-5.90) m/uL Hgb (13.0-17.5) gm/dL Hct (39.0-53.0) % Neutrophils # (Manual) (1.3-7.7) k/uL Lymphocytes # (Manual) (1.0-4.8) k/uL Monocytes # (Manual) (0-1.0) k/uL Sodium (137-145) mmol/L Carbon Dioxide (22-30) mmol/L Glucose (74-99) mg/dL POC Glucose (mg/dL) 202 H (75-99) mg/dL Plasma Lactic Acid Ovidio 3.7 H* (0.7-2.0) mmol/L Total Bilirubin (0.2-1.3) mg/dL ALT (21-72) U/L Total Protein (6.3-8.2) g/dL Urine Protein Trace H (Negative) Urine Ketones 1+ H (Negative) 03/23/19 Range/Units 11:02 WBC 66.2 H* (3.8-10.6) k/uL RBC 3.17 L (4.30-5.90) m/uL Hgb 9.7 L D (13.0-17.5) gm/dL Hct 29.1 L (39.0-53.0) % Neutrophils # (Manual) 13.20 H (1.3-7.7) k/uL Lymphocytes # (Manual) 51.64 H (1.0-4.8) k/uL Monocytes # (Manual) 1.99 H (0-1.0) k/uL Sodium (137-145) mmol/L Carbon Dioxide (22-30) mmol/L Glucose (74-99) mg/dL POC Glucose (mg/dL) (75-99) mg/dL Plasma Lactic Acid Ovidio (0.7-2.0) mmol/L Total Bilirubin (0.2-1.3) mg/dL ALT (21-72) U/L Total Protein (6.3-8.2) g/dL Urine Protein (Negative) Urine Ketones (Negative) Assessment and Plan Plan: Assessment and Rec: CLL (chronic lymphocytic leukemia) - The patient has a long-standing history of CLL/SLL, with diagnostic and therapeutic circumstances as described in the HPI. - There was concern for possible transformation in the spring, it which the patient was treated with a CEOP. He has been stable since, continuing on observation. - During his last admission, there is increase in adenopathy in the right supraclavicular, and right upper cervical nodes seen. Total WBC is elevated, with increase in absolute lymphocyte count compared to 09/25. - This admission appears to be a similiar picture. This could indicate progression, but the patient has had reactive changes similar to this previously in the setting of acute illness. - Therefore at this time I would recommend continuation of treatment for his acute illness. - Patient has a follow-up scheduled in the office. If adenopathy/leukocytosis persists to this degree or worsens, then that would be more indicative of progression. In that case the patient will have restaging scans. I would also consider a repeat biopsy. He will be started then be started back on treatment, as appropriate. If CLL/SLL progression is improved, I would likely use Ibrutinib. - In the interim will order IVIG to help increase his immunity to fight acute infectious process Bacteremia The patient was diagnosed with septic [place] pneumonia bacteremia. He is improved with vancomycin. ID is following. Defer to them for antibiotic management. Check hemoglobin levels. If low he may benefit from IVIG infusion. Normocytic Anemia: - Secondary to Dilution and likely acute prolonged infection Leukocytosis : Likely related to infection - Progression cannot be ruled out - Will watch for treatment of acute infection and resolution of his CBC and zeeshan nopathy, if not improved will plan to repeat LN biopsy. Physician Attest: I have completed the full history and physical of this patient and agree with above dictation, I have devloped the complete impression and plan, dictated as a scribe
[2019-03-24] MEDS ORDERED: SENNOSIDES 8.6 MG TAB PO PRN (14:13)
--- NOTE | 2019-03-24 15:38 | P.PN ---
Subjective Progress Note Date: 03/24/19 Principal diagnosis: Abdominal pain Patient was seen and examined. No acute events overnight. Patient continues to complain of abdominal, diffuse but well controlled with current medications. He denies any fever or chills. He denies any chest pain or palpitations. Patient's son states that the patient has been coughing, productive of green sputum. He has had trial of azithromycin in the outpatient setting. Objective - Vital Signs Vital signs: Vital Signs Temp 97.6 F 03/24/19 11:10 Pulse 92 03/24/19 11:10 Resp 16 03/24/19 11:10 BP 99/64 03/24/19 11:10 Pulse Ox 96 03/24/19 11:10 Intake & Output 03/23/19 03/24/19 03/24/19 18:59 06:59 18:59 Intake Total 700 1110 1350 Output Total 60 Balance 700 1050 1350 Intake: Intake, IV Titration 700 400 900 Amount Cefepime 2 gm In Sodium 100 Chloride 0.9% 100 ml @ 200 mls/hr IVPB Q8H [facility] Rx#:[id number] Sodium Chloride 0.9% 1, 200 400 800 000 ml @ 100 mls/hr IV . Q10H [facility] Rx#:[id number] Sodium Chloride 0.9% 500 500 ml 500 ml @ 999 mls/hr IV .Q31M [facility] Rx#:[id number] Oral 710 450 Output: Urine 60 Other: # Voids 3 3 - Exam General: [non toxic], [no distress], [appears at stated age] Derm: [warm], [dry] Head: [atraumatic], [normocephalic], [symmetric] Eyes: [no lid lag], [anicteric sclera] Mouth: [no lip lesion], [mucus membranes moist] Cardiovascular: [S1S2 reg], [tachycardia], [positive DP pulse bilateral] Lungs: [Decreased breath sounds bilateral], [no rhonchi, no rales] , [no accessory muscle use] Abdominal: [soft], [tenderness to palpation of the bilateral lower quadrants without rebound], [no guarding], [no appreciable organomegaly] Ext: [no gross muscle atrophy], [no edema], [no contractures] Neuro: [ CN II-XI grossly intact], [no focal neuro deficits] Psych: [Alert], [oriented], [appropriate affect] - Labs CBC & Chem 7: 03/24/19 07:19 03/24/19 07:19 Labs: Abnormal Lab Results - Last 24 Hours (Table) 03/23/19 03/24/19 03/24/19 Range/Units 05:32 07:19 07:19 WBC 53.8 H* (3.8-10.6) k/uL RBC 2.42 L (4.30-5.90) m/uL Hgb 7.3 L D (13.0-17.5) gm/dL Hct 21.4 L (39.0-53.0) % Plt Count 117 L (150-450) k/uL Lymphocytes # (Manual) 45.19 H (1.0-4.8) k/uL Monocytes # (Manual) 1.08 H (0-1.0) k/uL Chloride 108 H (98-107) mmol/L BUN 29 H (9-20) mg/dL Glucose 132 H (74-99) mg/dL Uric Acid 8.6 H (3.5-8.5) mg/dL Calcium 8.1 L (8.4-10.2) mg/dL ALT 11 L (21-72) U/L Lactate Dehydrogenase 670 H (313-618) U/L Total Protein 5.2 L (6.3-8.2) g/dL Albumin 3.1 L (3.5-5.0) g/dL Microbiology - Last 24 Hours (Table) 03/24/19 01:00 Urine Culture - Preliminary Urine,Clean Catch Assessment and Plan Assessment: Assessment and Plan Abdominal pain likely secondary to adenopathy seen on CT. CLL with leukocytosis of 64.4 Sepsis Lactic acidosis History of CAD/CVA Hypertension Atrial fibrillation Hyperlipidemia CT shows retroperitoneal adenopathy which encases the aorta and renal arteries. UA negative for nitrite or leukocyte esterase. Amylase and lipase within normal limits. Oncology consulted, believes enlarged lymph node is likely due to acute illness. Plan: Zofran as needed for nausea and vomiting. Morphine as needed for severe pain. Follow oncology recommendations. Leukocytosis of 64.4. Previous diagnosis of CLL, taken care of by Dr. Hernandez. Oncology consulted, if patient doesn't improve with treatment of acute illness, plans for restaging and repeat biopsy. Plan: Daily CBC. Follow oncology recommendations. Leukocytosis of 64.4, BP as low as 82/48, tachycardic to 107, lactic acid of 2.6 with no clear source of infection. Given his immunocompromise state, there is concerns for sepsis. Plan: Infectious disease consulted, recommends DC van comycin and start Flagyl. Continue cefepime IV. Tylenol as needed for fever. Continue normal saline at 100 mL per hour. Follow repeat lactic acid. Follow blood and urine cultures. Daily CBC. Follow ID consultation. Telemetry monitoring. Lactic acid 2.6-3.7-1.4 likely secondary to dehydration but concerns for sepsis. Plan: Continue normal saline at 100 mL/h. Continue IV antibiotics. Resolved. 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 Plan: Continue aspirin and simvastatin. BP 99/64. Plan: Continue metoprolol. Monitor vitals, adjust medications as necessary. Currently rate controlled. Plan: Continue metoprolol. Continue Propafenone. We'll need to discuss anticoagulation prior to discharge. Lipid panel within normal limits except for HDL of 16 and July 2016. Plan: Continue simvastatin. Patient admitted for abdominal pain, found to have retroperitoneal adenopathy, oncology consulted. Found to be hypotensive with elevated lactic acid, concerns for sepsis, started on broad-spectrum antibiotics, ID on consult. Patient is pending clinical improvement. He names his Yamilet the decision maker indicates that he can't make decisions for himself. Patient reiterates wanting to be full code.
--- NOTE | 2019-03-24 16:03 | PN ---
PROGRESS NOTE DATE OF SERVICE: 03/24/2019 REASON FOR FOLLOWUP: Abdominal pain with concern for possible diverticulitis versus possible ischemic from pressure from extensive lymphadenopathy. INTERVAL HISTORY: The patient is currently afebrile. The patient is complaining of pain mostly in the left lower abdominal area. Some improvement with morphine the patient has been receiving. No chest pain or shortness of breath or cough. PHYSICAL EXAMINATION: Blood pressure is 99/64 with a pulse of 92, temperature 97.6. He is 96% on room air. General description is an elderly male lying in bed in no distress. RESPIRATORY SYSTEM: Unlabored breathing. Clear to auscultation anteriorly. HEART: S1, S2. Regular rate and rhythm. ABDOMEN: Soft. Mildly tender in lower abdominal area. EXTREMITIES: No edema of the feet. LABS: Hemoglobin 7.3, white count 3.8. BUN of 29, creatinine 1.04. DIAGNOSTIC IMPRESSION AND PLAN: Patient admitted to hospital with abdominal pain. Did have elevated lactic acid in this patient who does have significant increase in the size of the lymphadenopathy with possible compression of the bowel and a question of possible diverticulitis. Patient is currently covered with cefepime and Flagyl; to continue while monitoring his clinical course closely. Continue with supportive care. MMODL / IJN: [id number] /
--- NOTE | 2019-03-24 16:26 | XR ---
EXAMINATION TYPE: XR chest 2V DATE OF EXAM: 03/24/2019 COMPARISON: 12/19/2018 HISTORY: Shortness of breath TECHNIQUE: Frontal and lateral views of the chest are obtained. FINDINGS: New right basilar linear airspace disease likely represents atelectasis. Left linear atele ctasis is also present. Remainder the lungs are well aerated. Osseous demineralization is seen. Cardi omediastinal silhouette is within normal limits. IMPRESSION: Linear bibasilar airspace disease likely represents atelectasis.
[2019-03-24] MEDS: ATORVASTATIN 20 MG TAB PO SCH (22:10)
[2019-03-25] MEDS: MORPHINE SULFATE 4 MG/ML SYRINGE IV PRN ×2 (02:07→06:58)
[2019-03-25] MEDS: SODIUM CHLORIDE 0.9% 1,000 ML IV SCH (06:59)
[2019-03-25] MEDS: ASPIRIN 81 MG PO SCH (08:15)
[2019-03-25] MEDS: ENOXAPARIN 40 MG/0.4 ML SYRINGE SQ SCH (08:19)
[2019-03-25] MEDS: metroNIDAZOLE 500 MG TAB PO SCH ×3 (08:20→22:01)
[2019-03-25 08:21] LABS: Reticulocyte % 2.6 % (0.5-2.0)
[2019-03-25] MEDS: HYDROcodone/APAP 5-325MG 1 EACH TAB PO PRN (08:21)
[2019-03-25 08:36] LABS: Immunoglobulin A <25.5 mg/dL (60.0-350.0); Immunoglobulin M 35.9 mg/dL (40.0-280.0)
[2019-03-25 12:56] LABS: Potassium 4.8 mmol/L (3.5-5.1)
[2019-03-25 12:58] LABS: MCHC 31.9 g/dL (31.0-37.0); Mean Platelet Volume 7.3; Platelet Count 117 k/uL (150-450); RBC 1.94 m/uL (4.30-5.90); RDW 15.8 % (11.5-15.5)
[2019-03-25 13:01] LABS: WBC 57.1 k/uL (3.8-10.6)
[2019-03-25 13:05] LABS: HCT 18.2 % (39.0-53.0); HGB 5.8 gm/dL (13.0-17.5)
[2019-03-25 13:16] LABS: Lymphocytes # (M) 44.54 k/uL (1.0-4.8); Neutrophils # (M) 12.56 k/uL (1.3-7.7); Neutrophils % (M) 22 %; Nucleated Red Blood Cells 0 /100 WBC (0-0); Total Cells Counted 100
[2019-03-25 13:18] LABS: Polychromasia Present
--- NOTE | 2019-03-25 13:18 | P.PN ---
Subjective Progress Note Date: 03/25/19 The patient continues to complain of significant abdominal distention and pain in the abdomen, and in the back. Respiratory status and cough is improved. No fevers or chills. Objective - Vital Signs Vital signs: Vital Signs Temp 97.8 F 03/25/19 11:58 Pulse 110 H 03/25/19 11:58 Resp 16 03/25/19 11:58 BP 83/52 03/25/19 11:58 Pulse Ox 92 L 03/25/19 11:58 Intake & Output 03/24/19 03/25/19 03/25/19 18:59 06:59 18:59 Intake Total 1350 3340 Balance 1350 3340 Intake: Intake, IV Titration 900 1200 Amount Cefepime 2 gm In Sodium 100 Chloride 0.9% 100 ml @ 200 mls/hr IVPB Q8H [facility] Rx#:[id number] Sodium Chloride 0.9% 1, 800 1200 000 ml @ 100 mls/hr IV . Q10H [facility] Rx#:[id number] Oral 450 2140 Other: # Voids 2 2 - Constitutional General appearance: Present: mild distress - EENT Eyes: Present: EOMI ENT: Present: hearing grossly normal, normal oropharynx - Neck Neck: Present: lymphadenopathy (Stable bilateral axillary adenopathy, right greater than left, compared to outpatient) - Respiratory Respiratory: bilateral: CTA - Cardiovascular Rhythm: regular Heart sounds: normal: S1, S2 - Gastrointestinal General gastrointestinal: Present: distended, normal bowel sounds - Integumentary Integumentary: Present: normal - Neurologic Neurologic: Present: CNII-XII intact, focal deficits - Musculoskeletal Musculoskeletal: Present: generalized weakness, strength equal bilaterally - Psychiatric Psychiatric: Present: A&O x's 3, appropriate affect - Labs CBC & Chem 7: 03/25/19 12:11 03/25/19 12:11 Labs: Abnormal Lab Results - Last 24 Hours (Table) 03/24/19 03/24/19 03/25/19 Range/Units 07:19 07:19 06:57 WBC (3.8-10.6) k/uL RBC (4.30-5.90) m/uL RDW (11.5-15.5) % Plt Count (150-450) k/uL Retic Count 2.6 H (0.5-2.0) % Chloride (98-107) mmol/L Carbon Dioxide (22-30) mmol/L BUN (9-20) mg/dL Glucose (74-99) mg/dL Calcium (8.4-10.2) mg/dL Lactate Dehydrogenase 854 H (313-618) U/L IgG 163.0 L (700.0-1600.0) mg/dL IgA <25.5 L (60.0-350.0) mg/dL IgM 35.9 L (40.0-280.0) mg/dL 03/25/19 03/25/19 Range/Units 12:11 12:11 WBC 57.1 H* (3.8-10.6) k/uL RBC 1.94 L (4.30-5.90) m/uL RDW 15.8 H (11.5-15.5) % Plt Count 117 L (150-450) k/uL Retic Count (0.5-2.0) % Chloride 110 H (98-107) mmol/L Carbon Dioxide 21 L (22-30) mmol/L BUN 38 H (9-20) mg/dL Glucose 116 H (74-99) mg/dL Calcium 8.0 L (8.4-10.2) mg/dL Lactate Dehydrogenase (313-618) U/L IgG (700.0-1600.0) mg/dL IgA (60.0-350.0) mg/dL IgM (40.0-280.0) mg/dL Microbiology - Last 24 Hours (Table) 03/24/19 01:00 Urine Culture - Final Urine,Clean Catch 03/23/19 18:07 Blood Culture - Preliminary Blood No Growth after 24 hours Assessment and Plan (1) Abdominal pain Narrative/Plan: This is his major complaint at this time, and continues to be persistent. Symptoms are controlled by current pain medication regimen but the patient is in continued discomfort. This is due to marked increase in his known abdominal adenopathy. - It is not clear at this time if the increase in adenopathy is due to inflammatory changes, reactive to his recent respiratory infection, versus progression/transformation of his underlying CLL. - Continue pain medications at this time, along with antibiotics and fluids. If symptoms do not improve, then the patient was started on steroids for presumed progression of his underlying leukemia, and biopsy will be planned. Current Visit: No Status: Acute Code(s): R10.9 - UNSPECIFIED ABDOMINAL PAIN SNOMED Code(s): 13250886 (2) Anemia Narrative/Plan: No obvious bleeding has been noted. Labs for hemolysis are not significantly elevated for degree of anemia. Therefore at this time hypoproliferative anemia, due to inflammation, or progression of leukemia suspected. CBC is pending from today. Transfuse to keep hemoglobin greater than 7 Current Visit: No Status: Acute Code(s): D64.9 - ANEMIA, UNSPECIFIED SNOMED Code(s): 111194060 (3) CAP (community acquired pneumonia) Narrative/Plan: The patient had persistent symptoms, despite outpatient antibiotics. IVIG could not be administered due to nationwide shortage . Continue IV antibiotics Current Visit: No Status: Acute Code(s): J18.9 - PNEUMONIA, UNSPECIFIED ORGANISM SNOMED Code(s): 994144157 (4) Chronic lymphocytic leukemia Narrative/Plan: Current rotation is concerning for progression or transformation. However the p atient has had episodes of transient lymph node enlargement and leukocytosis as a reactive phenomenon to infection. We'll continue to monitor on current care. If patient's symptoms are not improved then he'll be started on steroids for presumed transformation/progression, and lymph node biopsy planned for early next week Current Visit: No Status: Chronic Priority: Medium Code(s): C91.10 - CHRONIC LYMPHOCYTIC LEUK OF B-CELL TYPE NOT ACHIEVE REMIS SNOMED Code(s): 83452425
[2019-03-25] MEDS: KETOROLAC 30 MG/ML 1 ML VIAL IVP SCH ×2 (14:27→18:04)
--- NOTE | 2019-03-25 14:27 | P.PN ---
Subjective Progress Note Date: 03/25/19 Principal diagnosis: back pain patient was seen and examined. No acute events overnight. Patient complains of left-sided back pain, 8 out of 10 in severity, stabbing in nature. This is been ongoing since yesterday. Patient reports improvement in his abdominal pain but states that it could be related to his back pain. He denies any chest pain, shortness of breath or palpitations. No fever or chills. Objective - Vital Signs Vital signs: Vital Signs Temp 97.8 F 03/25/19 11:58 Pulse 110 H 03/25/19 11:58 Resp 16 03/25/19 11:58 BP 83/52 03/25/19 11:58 Pulse Ox 92 L 03/25/19 11:58 Intake & Output 03/24/19 03/25/19 03/25/19 18:59 06:59 18:59 Intake Total 1350 3340 Balance 1350 3340 Intake: Intake, IV Titration 900 1200 Amount Cefepime 2 gm In Sodium 100 Chloride 0.9% 100 ml @ 200 mls/hr IVPB Q8H [facility] Rx#:[id number] Sodium Chloride 0.9% 1, 800 1200 000 ml @ 100 mls/hr IV . Q10H [facility] Rx#:[id number] Oral 450 2140 Other: # Voids 2 2 - Exam General: [non toxic], [no distress], [appears at stated age] Derm: [warm], [dry] Head: [atraumatic], [normocephalic], [symmetric] Eyes: [no lid lag], [anicteric sclera] Mouth: [no lip lesion], [mucus membranes moist] Cardiovascular: [S1S2 reg], [tachycardia], [positive DP pulse bilateral] Lungs: [Decreased breath sounds bilateral], [no rhonchi, no rales] , [no accessory muscle use] Abdominal: [soft], [no tenderness to palpation], [no guarding], [no appreciable organomegaly] Ext: [no gross muscle atrophy], [no edema], [no contractures], [left-sided paraspinal muscle tenderness] Neuro: [no focal neuro deficits] Psych: [Alert], [oriented], [appropriate affect] - Labs CBC & Chem 7: 03/25/19 12:11 03/25/19 12:11 Labs: Abnormal Lab Results - Last 24 Hours (Table) 03/24/19 03/24/19 03/25/19 Range/Units 07:19 07:19 06:57 WBC (3.8-10.6) k/uL RBC (4.30-5.90) m/uL Hgb (13.0-17.5) gm/dL Hct (39.0-53.0) % RDW (11.5-15.5) % Plt Count (150-450) k/uL Neutrophils # (Manual) (1.3-7.7) k/uL Lymphocytes # (Manual) (1.0-4.8) k/uL Retic Count 2.6 H (0.5-2.0) % Chloride (98-107) mmol/L Carbon Dioxide (22-30) mmol/L BUN (9-20) mg/dL Glucose (74-99) mg/dL Calcium (8.4-10.2) mg/dL Lactate Dehydrogenase 854 H (313-618) U/L IgG 163.0 L (700.0-1600.0) mg/dL IgA <25.5 L (60.0-350.0) mg/dL IgM 35.9 L (40.0-280.0) mg/dL 03/25/19 03/25/19 Range/Units 12:11 12:11 WBC 57.1 H* (3.8-10.6) k/uL RBC 1.94 L (4.30-5.90) m/uL Hgb 5.8 L* D (13.0-17.5) gm/dL Hct 18.2 L* (39.0-53.0) % RDW 15.8 H (11.5-15.5) % Plt Count 117 L (150-450) k/uL Neutrophils # (Manual) 12.56 H (1.3-7.7) k/uL Lymphocytes # (Manual) 44.54 H (1.0-4.8) k/uL Retic Count (0.5-2.0) % Chloride 110 H (98-107) mmol/L Carbon Dioxide 21 L (22-30) mmol/L BUN 38 H (9-20) mg/dL Glucose 116 H (74-99) mg/dL Calcium 8.0 L (8.4-10.2) mg/dL Lactate Dehydrogenase (313-618) U/L IgG (700.0-1600.0) mg/dL IgA (60.0-350.0) mg/dL IgM (40.0-280.0) mg/dL Microbiology - Last 24 Hours (Table) 03/24/19 01:00 Urine Culture - Final Urine,Clean Catch 03/23/19 18:07 Blood Culture - Preliminary Blood No Growth after 24 hours Assessment and Plan Assessment: Assessment and Plan Back pain Anemia Abdominal pain likely secondary to adenopathy seen on CT. CLL with leukocytosis of 64.4 Sepsis Lactic acidosis History of CAD/CVA Hypertension Atrial fibrillation Hyperlipidemia Paraspinal tenderness. Likely musculoskeletal. Plan: Pain management with Toradol, [place]. Morphine for severe pain but avoid due to hypotension. Trial of lidocaine patch. Hemoglobin 5.8, down from 9.7 on admission. Normocytic. LDH 854, indicating hemolysis. Reticulocyte count 2.6, indicating hypo-proliferation. Plan: Daily CBC. Transfuse 2 units PRBC stat. Transfuse if hemoglobin less than 7. Possible steroids as per oncology. Follow oncology recommendations. CT shows retroperitoneal adenopathy which encases the aorta and renal arteries. UA negative for nitrite or leukocyte esterase. Amylase and lipase within normal limits. Oncology consulted, believes enlarged lymph node is likely due to acute illness. Plan: Zofran as needed for nausea and vomiting. Morphine, [place] or Toradol as needed for severe pain. Follow oncology recommendations. Leukocytosis of 64.4-57.1. Previous diagnosis of CLL, taken care of by Dr. Hernandez. Oncology consulted, if patient doesn't improve with treatment of acute illness, plans for restaging and repeat biopsy. Plan: Daily CBC. Follow oncology recommendations. Leukocytosis of 64.4, BP as low as 82/48, tachycardic to 107, lactic acid of 2.6 with no clear source of infection. Repeat lactic acid within normal limits. Urine culture negative. Blood culture negative at 24 hours. Given his immunocompromise state, there is concerns for sepsis. Plan: Infectious disease consulted, recommends DC vancomycin and start Flagyl. Continue cefepime IV. Tylenol as needed for fever. Continue normal saline at 100 mL per hour. Follow blood. Daily CBC. Follow ID consultation. Telemetry monitoring. Lactic acid 2.6-3.7-1.4 likely secondary to dehydration but concerns for sepsis. Plan: Continue normal saline at 100 mL/h. Continue IV antibiotics. Resolved. 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 Plan: Continue aspirin and simvastatin. BP 83/52. Plan: Continue metoprolol. Monitor vitals, adjust medications as necessary. Currently rate controlled. Plan: Continue metoprolol. Continue Propafenone. We'll need to discuss anticoagulation prior to discharge. Lipid panel within normal limits except for HDL of 16 and July 2016. Plan: Continue simvastatin. Patient admitted for abdominal pain, found to have retroperitoneal adenopathy, oncology consulted. Found to be hypotensive with elevated lactic acid, concerns for sepsis, started on broad-spectrum antibiotics, ID on consult. Found to have low hemoglobin this morning, 2 PRBCs ordered. Patient is pending clinical improvement. He names his Yamilet the decision maker indicates that he can't make decisions for himself. Patient reiterates wanting to be full code.
[2019-03-25] MEDS ORDERED: LIDOCAINE 5% PATCH TOPICAL SCH (14:30)
[2019-03-25] MEDS: CEFEPIME 2 GM in SODIUM CHLORIDE 0.9% 100 ML IVPB SCH ×2 (14:36→21:16)
--- NOTE | 2019-03-25 14:39 | P.CRDCN ---
History of Present Illness Consult date: 03/25/19 Requesting physician: Riri Deng Reason for Consult (text): blood pressure medication review and management, hypotension Chief complaint: abdominal pain History of present illness: This is a pleasant 78-year-old gentleman with history of paroxysmal atrial fibrillation, cardiomyopathy, CLL, pneumonia, hypertension, hyperlipidemia who follows with Dr. Galeano in the office. Presents to the emergency department with complaints of abdominal discomfort. V2 the abdomen and pelvis showed increase of bulky retroperitoneal mass/adenopathy which encases the aorta and renal arteries as well as mesenteric, pelvic, inguinal and mediastinal adenopathy and a abdominal peritoneal nodules that are similar to previous. Rest of the patient in consultation due to hypotension. Patient is quite anemic with a hemoglobin of 5.8 this morning which is down from 11.3 on 03/23/2018. Systolic blood pressure has been running 70s to low 100s and patient has been tachycardic running anywhere from 100-110. He is afebrile. Chest x-ray showed linear bibasilar airspace disease likely representing atelectasis. He is currently on metoprolol 25 mg by mouth twice a day as well as Rythmol 225 mg by mouth twice a day. He is maintaining sinus rhythm on the monitor. He does complain of some dizziness and shortness of breath and continued abdominal discomfort. He is ordered to have 2 units of packed red blood cells today. 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 Last Myocardial Infarction Date:: 1997 History of Any Multi-Drug Resistant Organisms: None Reported Past Surgical History: Hernia Repair, Orthopedic Surgery, Tonsillectomy Additional Past Surgical History / Comment(s): R axillary lymph node biopsy, BMB, EGD, colonoscopies, umbilical hernia repair, bilateral cataract removal/lens implants, skin cancer removal, bilateral rotator cuff repairs, midline IV since removed Past Anesthesia/Blood Transfusion Reactions: No Reported Reaction Additional Past Anesthesia/Blood Transfusion Reaction / Comment(s): Clausterphobia. Pt had blood transfusion- no reaction Smoking Status: Former smoker - Past Family History Mother Family Medical History: No Reported History Additional Family Medical History / Comment(s): Pt stated his mom was healthy but never went to the doctors. Father Family Medical History: Congestive Heart Failure (CHF), Myocardial Infarction (NH), Vascular Disorder Additional Family Medical History / Comment(s): Father at age 75. He was a heavy smoker Medications and Allergies Home Medications Medication Instructions Recorded Confirmed Type Propafenone [Rythmol] 225 mg PO BID 12/04/15 03/23/19 History Simvastatin [Zocor] 40 mg PO HS 01/23/18 03/23/19 History Metoprolol Tartrate [Lopressor] 25 mg PO BID 12/15/18 03/23/19 History Levofloxacin [Levaquin] 500 mg PO DAILY 03/23/19 03/23/19 History Allergies Allergy/AdvReac Type Severity Reaction Status Date / Time No Known Allergies Allergy Verified 03/23/19 08:59 Physical Exam Vitals: Vital Signs Temp Pulse Pulse Resp BP Pulse Ox 03/25/19 11:58 97.8 F 110 H 16 83/52 92 L 03/25/19 08:31 106 H 17 101/55 97 03/25/19 07:10 18 03/25/19 07:02 102 H 86/52 03/25/19 05:00 97.7 F 90 16 77/47 93 L 03/24/19 21:00 98.1 F 107 H 16 106/68 94 L 03/24/19 16:00 16 Intake and Output 03/24/19 03/25/19 03/25/19 22:59 06:59 14:59 Intake Total 1190 2150 Balance 1190 2150 Intake: Intake, IV Titration 1200 Amount Sodium Chloride 0.9% 1, 1200 000 ml @ 100 mls/hr IV . Q10H [facility] Rx#:[id number] Oral 1190 950 Other: # Voids 1 2 PHYSICAL EXAMINATION: HEENT: Head is atraumatic, normocephalic. Pupils equal, round. Neck is supple. There is no elevated jugular venous pressure. HEART EXAMINATION: Heart sounds regular, S1 and S2 with a systolic murmur. CHEST EXAMINATION: Lungs reveal wheezing throughout with scattered rhonchi. No chest wall tenderness is noted on palpation or with deep breathing. ABDOMEN: Soft, tender. Bowel sounds are heard. No organomegaly noted. EXTREMITIES: 2+ peripheral pulses with no evidence of peripheral edema and no calf tenderness noted. NEUROLOGIC patient is awake, alert and oriented x3. . Results 03/25/19 12:11 03/25/19 12:11 Cardiac Enzymes 03/25/19 Range/Units 06:57 Lactate Dehydrogenase 854 H (313-618) U/L CBC 03/25/19 Range/Units 12:11 WBC 57.1 H* (3.8-10.6) k/uL RBC 1.94 L (4.30-5.90) m/uL Hgb 5.8 L* D (13.0-17.5) gm/dL Hct 18.2 L* (39.0-53.0) % Plt Count 117 L (150-450) k/uL Comprehensive Metabolic Panel 03/25/19 Range/Units 12:11 Sodium 139 (137-145) mmol/L Potassium 4.8 (3.5-5.1) mmol/L Chloride 110 H (98-107) mmol/L Carbon Dioxide 21 L (22-30) mmol/L BUN 38 H (9-20) mg/dL Creatinine 1.14 (0.66-1.25) mg/dL Glucose 116 H (74-99) mg/dL Calcium 8.0 L (8.4-10.2) mg/dL Current Medications Generic Name Dose Route Start Last Admin Trade Name Freq PRN Reason Stop Dose Admin Acetaminophen 650 mg 03/23/19 08:08 Tylenol Tab PO Q6HR PRN Mild Pain or Fever > 100.5 Hydrocodone Bitart/Acetaminophen 1 each 03/23/19 17:34 03/25/19 08:21 Cushing 5-325 PO 1 each Q4HR PRN Administration Moderate Pain Aspirin 81 mg 03/24/19 09:00 03/25/19 08:15 Aspirin PO Not Given DAILY [facility] Atorvastatin Calcium 20 mg 03/23/19 21:00 03/24/19 22:10 Lipitor PO 20 mg HS [facility] Administration Enoxaparin Sodium 40 mg 03/24/19 09:00 03/25/19 08:19 Lovenox SQ 40 mg DAILY [facility]IE Administration Sodium Chloride 1,000 mls @ 100 mls/hr 03/23/19 08:15 03/25/19 06:59 Saline 0.9% IV 100 mls/hr .Q10H [facility] Administration Cefepime HCl 2 gm/ Sodium 100 mls @ 200 mls/hr 03/24/19 10:00 03/24/19 22:09 Chloride IVPB 200 mls/hr Q12H [facility] Administration Ketorolac Tromethamine 15 mg 03/25/19 12:30 03/25/19 14:27 Toradol IVP 03/29/19 12:30 15 mg Q6HR [facility] Administration Lidocaine 1 patch 03/25/19 14:30 Lidoderm TOPICAL Q24H [facility] Metoprolol Tartrate 12.5 mg 03/25/19 21:00 Lopressor PO BID [facility] Metronidazole 500 mg 03/24/19 09:00 03/25/19 08:20 Flagyl PO 500 mg TID [facility] Administration Morphine Sulfate 4 mg 03/23/19 08:08 03/25/19 06:58 Morphine Sulfate (Inj) IV 4 mg Q4HR PRN Administration Severe Pain Naloxone HCl 0.2 mg 03/23/19 08:08 Narcan IV Q2M PRN Opioid Reversal Ondansetron HCl 4 mg 03/23/19 15:04 03/24/19 11:35 Zofran IVP 4 mg Q6HR PRN Administration Nausea And Vomiting Propafenone HCl 225 mg 03/23/19 21:00 03/24/19 22:11 Rythmol PO 225 mg BID [facility] Administration Senna 8.6 mg 03/24/19 14:13 03/25/19 08:20 Senokot PO 8.6 mg DAILY PRN Administration Constipation Intake and Output 03/24/19 03/25/19 03/25/19 22:59 06:59 14:59 Intake Total 1190 2150 Balance 1190 2150 Intake: Intake, IV Titration 1200 Amount Sodium Chloride 0.9% 1, 1200 000 ml @ 100 mls/hr IV . Q10H [facility] Rx#:[id number] Oral 1190 950 Other: # Voids 1 2 03/25/19 12:11 03/25/19 12:11 Assessment and Plan Assessment: #1 abdominal pain, likely secondary to worsening abdominal adenopathy #2 anemia #3 pneumonia #4 hypotension #5 paroxysmal atrial fibrillation #6 cardiomyopathy with most recent available ejection fraction 40-45% #7 chronic lymphocytic leukemia Plan: From cardiology's perspective, we will decrease metoprolol to 12.5 mg by mouth twice a day. Continue Rythmol 225 mg by mouth twice a day. We agree with transfusion of packed red blood cells. We will continue to follow patient for further recommendations accordingly. V[employer] FORM OPERATOR note has been reviewed, I agree with a documented findings and plan of care. Patient was seen and examined.
[2019-03-25 15:47] LABS: Creatine Kinase MB 39.1 ng/mL (0.0-2.4)
[2019-03-25] MEDS: PROPAFENONE 225 MG TAB PO SCH ×2 (15:50→21:17)
[2019-03-25 16:04] LABS: Troponin I 3.65 ng/mL (0.000-0.034)
[2019-03-25 17:31] LABS: Glucose,Whole Blood 149 mg/dL (75-99)
[2019-03-25] MEDS: METOPROLOL TARTRATE 25 MG TAB PO SCH (17:46)
--- NOTE | 2019-03-25 18:12 | XR ---
EXAMINATION TYPE: XR chest 1V portable DATE OF EXAM: 03/25/2019 COMPARISON: 03/24/2019 HISTORY: Shortness of breath TECHNIQUE: Single frontal view of the chest is obtained. FINDINGS: In addition to the linear right basilar airspace disease there is worsening peribronchial thickening of the right hilum and bronchus intermedius. Strand-like left basilar opacity has also dev eloped in the interim. Cardiomediastinal silhouette is within normal limits although partially obscur ed. Upper mediastinum appears widened secondary to slight patient rotation. Generalized osseous demin eralization is seen. IMPRESSION: Worsening of the right-sided peribronchial cuffing in addition to the right basilar airs pace disease concerning for pneumonia. New left basilar airspace disease may represent atelectasis or multifocal pneumonia.
[2019-03-25] MEDS ORDERED: SODIUM CHLORIDE 0.9% 2,000 ML IV ONE (18:31)
[2019-03-25] MEDS: IPRATROPIUM-ALBUTEROL 3 ML NEB INHALATION SCH ×2 (19:11)
[2019-03-25] MEDS ORDERED: ALBUTEROL NEBULIZED 2.5 MG/3 ML INHALATION STA (21:04)
[2019-03-25] MEDS: ACETAMINOPHEN TAB 325 MG TAB PO PRN (21:07)
[2019-03-25] MEDS: ATORVASTATIN 20 MG TAB PO SCH (21:07)
[2019-03-25] MEDS ORDERED: SODIUM CHLORIDE 0.9% 1,000 ML IV ONE (22:07)
[2019-03-25] MEDS: METOPROLOL TARTRATE 12.5 MG TAB PO SCH (22:48)
[2019-03-25] MEDS: NOREPINEPHRINE 4 MG in SODIUM CHLORIDE 0.9% 250 ML IV SCH (23:06)
[2019-03-25] MEDS: IPRATROPIUM-ALBUTEROL 3 ML NEB INHALATION PRN (23:47)
[2019-03-26] MEDS: KETOROLAC 30 MG/ML 1 ML VIAL IVP SCH ×2 (00:38→07:48)
[2019-03-26] MEDS ORDERED: ETOMIDATE 2 MG/ML 10 ML VIAL ONE (01:45)
[2019-03-26] MEDS ORDERED: CHLORHEXIDINE GLUCONATE 15 ML CUP MUCOUS MEM ONE (01:45)
[2019-03-26] MEDS ORDERED: ROCURONIUM BROMIDE 10 MG/ML 10 ML VIAL IV ONE (01:45)
[2019-03-26 01:52] LABS: Glucose,Whole Blood 170 mg/dL (75-99)
[2019-03-26] MEDS: PROPOFOL 1,000 MG in EMPTY BAG 1 BAG IV SCH ×6 (02:00→21:18)
--- NOTE | 2019-03-26 02:15 | XR ---
EXAM: XR Chest, 1 View CLINICAL HISTORY: ITS.REASON XR Reason: Intubation TECHNIQUE: Frontal view of the chest. COMPARISON: 03/25/19 x-ray IMPRESSION: ET tube terminates 1.4 cm from the pavel. Recommend pulling back 2-3 cm. NG tube side port terminates at the distal esophagus. Recommend advancing at least 10 cm.
[2019-03-26 02:17] LABS: ABG Base Excess -11.8 mmol/L; ABG HCO3 17 mmol/L (21-25); ABG Oxygen Saturation 99.8 % (94-97); ABG PCO2 50 mmHg (35-45); ABG PO2 >400 mmHg (83-108); ABG TCO2 19 mmol/L (19-24)
--- NOTE | 2019-03-26 02:20 | P.PN ---
Progress Note - Text Progress Note Date: 03/26/19 Rommel james called for the patient at 0138. Informed by the MICU RN that the patient had gradually become more confused during the night and pulled out his IVs and was ambulating on the MICU floor. After returning to his room, he was noted to become more unresponsive and became hypoxic with SpO2 in the 50s and also developed bradycardia in the 40s. The patient's BP was 59/39 and a code blue was subsequently called. The patient was intubated. No CPR was performed. The patient was started on his pRBC transfusion and his Levophed was uptitrated. The patient's most recent vitals are BP 98/65, P 120, SpO2 98% on 100% CMV. The episode could be secondary to his severe anemia vs primary cardiac event (DC) in light of up-trending troponin levels. Will continue with levophed infusion along with pRBCs 2 units with f/u CBC. C/w normal saline infusion.
[2019-03-26 03:26] LABS: Calcium 7.5 mg/dL (8.4-10.2); Magnesium 2.5 mg/dL (1.6-2.3); Potassium 5.1 mmol/L (3.5-5.1)
[2019-03-26 03:28] LABS: INR 1.4 (<1.2); Partial Thromboplastin Time 25.7 sec (22.0-30.0); Prothrombin Time 13.8 sec (9.0-12.0)
[2019-03-26] MEDS: IPRATROPIUM-ALBUTEROL 3 ML NEB INHALATION PRN (03:44)
[2019-03-26 05:19] LABS: ABG Base Excess -7.4 mmol/L; ABG HCO3 19 mmol/L (21-25); ABG Oxygen Saturation 99.2 % (94-97); ABG PCO2 35 mmHg (35-45); ABG PH 7.33 (7.35-7.45); ABG PO2 159 mmHg (83-108); ABG TCO2 20 mmol/L (19-24)
[2019-03-26] MEDS: NOREPINEPHRINE 4 MG in SODIUM CHLORIDE 0.9% 250 ML IV SCH ×3 (07:37→20:12)
[2019-03-26] MEDS: IPRATROPIUM-ALBUTEROL 3 ML NEB INHALATION SCH ×6 (08:07→22:53)
[2019-03-26] MEDS ORDERED: IPRATROPIUM-ALBUTEROL 3 ML NEB INHALATION PRN (08:11)
--- NOTE | 2019-03-26 08:19 | PN ---
PROGRESS NOTE Mr. Lee is an 78-year-old male with a history of chronic lymphocytic leukemia, who presented with progressive abdominal pain and was found to have a mass. He had severe anemia. He has a history of paroxysmal fibrillation. Yesterday, he had episode of hypertension subsequently became more dyspneic requiring mechanical ventilation. He is intubated, sedated in the ICU. His troponin has increased and his peak troponin is 8.2. His EKG showed ST-segment depression in the anterolateral leads. He continued to be in sinus mechanism. There is no evidence of atrial fibrillation. He received transfusion yesterday. He continues to be at this time on aspirin 81 mg daily, Lipitor 20 mg daily, metoprolol tartrate 12.5 mg twice a day, propafenone 225 mg twice a day. PHYSICAL EXAMINATION: Blood pressure running in the high 80s and 90s with a heart rate in the low 100 and sinus. LUNGS: Clear anteriorly. HEART: Tachycardic S1, S2. No S3 with a systolic murmur. No diastolic murmur. ABDOMEN: Soft. Positive bowel sounds. EXTREMITIES: No edema. LAB DATA: Lab data revealed BUN and creatinine 43 and 1.25. Potassium 5.1. PH 7.33, PO2 of 159. His chest x-ray shows right-sided infiltrate. IMPRESSION: 1. Respiratory failure, multifactorial with probable element of pneumonia in an immunocompromised patient. 2. Chronic lymphocytic leukemia with severe anemia. 3. Evidence of myocardial infarction, most likely exacerbated by the severe anemia and representing a type 2 event. 4. Paroxysmal atrial fibrillation remains in sinus mechanism. RECOMMENDATION: We will continue supportive care. Unfortunately, the prognosis is quite guarded. I will obtain echocardiogram with Doppler to evaluate left ventricular systolic function. In the past, his left ventricular systolic function was in the range of 45-50 percent. The patient is not a candidate for any aggressive cardiac workup. I have discussed those findings with the family. MMODL / IJN: [id number] /
[2019-03-26] MEDS ORDERED: CISATRACURIUM 2 MG/ML 5 ML VIAL IV ONE (08:38)
[2019-03-26 08:43] LABS: Anisocytosis Slight; HCT 24.3 % (39.0-53.0); MCH 29.1 pg (25.0-35.0); MCHC 32.4 g/dL (31.0-37.0); MCV 89.8 fL (80.0-100.0); Mean Platelet Volume 7.5; Platelet Count 120 k/uL (150-450); RBC 2.71 m/uL (4.30-5.90); RDW 17.4 % (11.5-15.5)
[2019-03-26 08:46] LABS: Albumin 2.7 g/dL (3.5-5.0); Calcium 7.4 mg/dL (8.4-10.2); Phosphorus 4.2 mg/dL (2.5-4.5); Potassium 4.8 mmol/L (3.5-5.1); Total Bilirubin 1.2 mg/dL (0.2-1.3); Total Protein 4.5 g/dL (6.3-8.2); Uric Acid 10.7 mg/dL (3.5-8.5)
[2019-03-26 08:51] LABS: HGB 7.9 gm/dL (13.0-17.5); WBC 71.3 k/uL (3.8-10.6)
[2019-03-26 09:26] LABS: Lymphocytes # (M) 60.61 k/uL (1.0-4.8); Monocytes # (M) 1.43 k/uL (0-1.0); Neutrophils # (M) 9.27 k/uL (1.3-7.7); Neutrophils % (M) 13 %; Nucleated Red Blood Cells 0 /100 WBC (0-0); Total Cells Counted 100
[2019-03-26 09:27] LABS: Poikilocytosis (M) Present
[2019-03-26] MEDS ORDERED: VANCOMYCIN IV PER PHARMACY 1 EACH MISC MISCELLANE PRN (09:39)
--- NOTE | 2019-03-26 09:50 | XR ---
EXAMINATION TYPE: XR chest 1V portable DATE OF EXAM: 03/26/2019 HISTORY: line placement. REFERENCE: Previous study dated earlier today. FINDINGS: There is an NG tube is coiled in the stomach. The tip of the ET tube is only 2 cm from the pavel and should likely be withdrawn slightly. There has been a insertion of a left internal jugular catheter. Its tip is in the right atrium. The heart is mildly enlarged. There is mild widening of the vascular pedicle. There is bibasilar airs pace disease. There are small effusions. IMPRESSION: 1. LOW-LYING ET TUBE. 2. BIBASILAR AIRSPACE DISEASE. 3. BILATERAL EFFUSIONS. 4. WIDENING OF THE VASCULAR PEDICLE.
[2019-03-26] MEDS: ENOXAPARIN 40 MG/0.4 ML SYRINGE SQ SCH (09:51)
[2019-03-26] MEDS: ASPIRIN 81 MG PO SCH (09:51)
--- NOTE | 2019-03-26 09:54 | P.PN ---
Subjective Progress Note Date: 03/26/19 Principal diagnosis: Acute respiratory distress, elevated troponin CODE GHASSAN called around 1:38 AM. Increased confusion overnight, pulled IVs and ambulating ICU floor. Patient became unresponsive and hypoxic after returning to his room, bradycardic into the 40s with BP 59/39. Patient was intubated to protect his airway. No CPR was performed. All of this was prior to transfusion of PRBC. Started on Levophed. Patient was seen and examined. He remains intubated. Levophed running at 11 mcg/kg/m. Ventilator settings at respiratory rate 20, tidal volume 450, FiO2 40 and PEEP of 5. Objective - Vital Signs Vital signs: Vital Signs Temp 98.9 F 03/26/19 08:00 Pulse 106 H 03/26/19 08:19 Resp 20 03/26/19 08:00 BP 101/68 03/26/19 08:00 Pulse Ox 97 03/26/19 08:00 Intake & Output 03/25/19 03/26/19 03/26/19 18:59 06:59 18:59 Intake Total 600 4977.445 155.648 Output Total 30 360 75 Balance 570 4617.445 80.648 Weight 84.1 kg Intake: Intake, IV Titration 100 4047.445 155.648 Amount Cefepime 2 gm In Sodium 100 Chloride 0.9% 100 ml @ 200 mls/hr IVPB Q12H LIZZIE Rx#:[id number] Norepinephrine 4 mg In 168.304 55.648 Sodium Chloride 0.9% 250 ml @ 0.05 MCG/KG/MIN 15. 122 mls/hr IV .[id number] LIZZIE Rx#:[id number] Propofol 1,000 mg In 79.141 Empty Bag 1 bag @ Titrate IV .Q0M LIZZIE Rx#: [id number] Sodium Chloride 0.9% 1, 100 700 100 000 ml @ 100 mls/hr IV . Q10H LIZZIE Rx#:[id number] Sodium Chloride 0.9% 2, 3000 000 ml @ 999 mls/hr IV . Q2H1M ONE Rx#:[id number] Oral 500 Blood Product 930 Rc As-1 Unit 310 [id number] Rc As-1 Unit 310 [id number] Output: Urine 30 360 75 Other: Voiding Method Indwelling Catheter Indwelling Catheter # Voids 2 - Exam General: [non toxic], [intubated], [appears at stated age] Derm: [warm], [dry] Head: [atraumatic], [normocephalic], [symmetric] Eyes: [no lid lag], [anicteric sclera] Mouth: [no lip lesion], [mucus membranes moist] Cardiovascular: [S1S2 reg], [tachycardia], [positive DP pulse bilateral] Lungs: [Decreased breath sounds bilateral], [no rhonchi, no rales] , [no accessory muscle use] Abdominal: [soft], [no guarding], [no appreciable organomegaly] Ext: [no gross muscle atrophy], [no edema], [no contractures] - Labs CBC & Chem 7: 03/26/19 08:18 03/26/19 08:18 Labs: Abnormal Lab Results - Last 24 Hours (Table) 03/25/19 03/25/19 03/25/19 Range/Units 12:11 12:11 13:53 WBC 57.1 H* (3.8-10.6) k/uL RBC 1.94 L (4.30-5.90) m/uL Hgb 5.8 L* D (13.0-17.5) gm/dL Hct 18.2 L* (39.0-53.0) % RDW 15.8 H (11.5-15.5) % Plt Count 117 L (150-450) k/uL Neutrophils # (Manual) 12.56 H (1.3-7.7) k/uL Lymphocytes # (Manual) 44.54 H (1.0-4.8) k/uL PT (9.0-12.0) sec INR (<1.2) ABG pH (7.35-7.45) ABG pCO2 (35-45) mmHg ABG pO2 (83-108) mmHg ABG HCO3 (21-25) mmol/L ABG O2 Saturation (94-97) % Chloride 110 H (98-107) mmol/L Carbon Dioxide 21 L (22-30) mmol/L BUN 38 H (9-20) mg/dL Glucose 116 H (74-99) mg/dL POC Glucose (mg/dL) (75-99) mg/dL Uric Acid (3.5-8.5) mg/dL Calcium 8.0 L (8.4-10.2) mg/dL Magnesium (1.6-2.3) mg/dL AST (17-59) U/L Total Creatine Kinase (55-170) U/L CK-MB (CK-2) (0.0-2.4) ng/mL Troponin I (0.000-0.034) ng/mL Total Protein (6.3-8.2) g/dL Albumin (3.5-5.0) g/dL Crossmatch See Detail 03/25/19 03/25/19 03/25/19 Range/Units 15:10 17:18 21:29 WBC (3.8-10.6) k/uL RBC (4.30-5.90) m/uL Hgb (13.0-17.5) gm/dL Hct (39.0-53.0) % RDW (11.5-15.5) % Plt Count (150-450) k/uL Neutrophils # (Manual) (1.3-7.7) k/uL Lymphocytes # (Manual) (1.0-4.8) k/uL PT (9.0-12.0) sec INR (<1.2) ABG pH (7.35-7.45) ABG pCO2 (35-45) mmHg ABG pO2 (83-108) mmHg ABG HCO3 (21-25) mmol/L ABG O2 Saturation (94-97) % Chloride (98-107) mmol/L Carbon Dioxide (22-30) mmol/L BUN (9-20) mg/dL Glucose (74-99) mg/dL POC Glucose (mg/dL) 149 H (75-99) mg/dL Uric Acid (3.5-8.5) mg/dL Calcium (8.4-10.2) mg/dL Magnesium (1.6-2.3) mg/dL AST (17-59) U/L Total Creatine Kinase 251 H (55-170) U/L CK-MB (CK-2) 39.1 H (0.0-2.4) ng/mL Troponin I 3.650 H* 8.210 H* (0.000-0.034) ng/mL Total Protein (6.3-8.2) g/dL Albumin (3.5-5.0) g/dL Crossmatch 03/26/19 03/26/19 03/26/19 Range/Units 01:40 02:16 02:40 WBC (3.8-10.6) k/uL RBC (4.30-5.90) m/uL Hgb (13.0-17.5) gm/dL Hct (39.0-53.0) % RDW (11.5-15.5) % Plt Count (150-450) k/uL Neutrophils # (Manual) (1.3-7.7) k/uL Lymphocytes # (Manual) (1.0-4.8) k/uL PT 13.8 H (9.0-12.0) sec INR 1.4 H (<1.2) ABG pH 7.15 L* (7.35-7.45) ABG pCO2 50 H (35-45) mmHg ABG pO2 >400 H (83-108) mmHg ABG HCO3 17 L (21-25) mmol/L ABG O2 Saturation 99.8 H (94-97) % Chloride (98-107) mmol/L Carbon Dioxide (22-30) mmol/L BUN (9-20) mg/dL Glucose (74-99) mg/dL POC Glucose (mg/dL) 170 H (75-99) mg/dL Uric Acid (3.5-8.5) mg/dL Calcium (8.4-10.2) mg/dL Magnesium (1.6-2.3) mg/dL AST (17-59) U/L Total Creatine Kinase (55-170) U/L CK-MB (CK-2) (0.0-2.4) ng/mL Troponin I (0.000-0.034) ng/mL Total Protein (6.3-8.2) g/dL Albumin (3.5-5.0) g/dL Crossmatch 03/26/19 03/26/19 03/26/19 Range/Units 02:40 05:03 08:18 WBC 71.3 H* (3.8-10.6) k/uL RBC 2.71 L (4.30-5.90) m/uL Hgb 7.9 L D (13.0-17.5) gm/dL Hct 24.3 L (39.0-53.0) % RDW 17.4 H (11.5-15.5) % Plt Count 120 L (150-450) k/uL Neutrophils # (Manual) (1.3-7.7) k/uL Lymphocytes # (Manual) (1.0-4.8) k/uL PT (9.0-12.0) sec INR (<1.2) ABG pH 7.33 L (7.35-7.45) ABG pCO2 (35-45) mmHg ABG pO2 159 H (83-108) mmHg ABG HCO3 19 L (21-25) mmol/L ABG O2 Saturation 99.2 H (94-97) % Chloride 112 H (98-107) mmol/L Carbon Dioxide 17 L (22-30) mmol/L BUN 43 H (9-20) mg/dL Glucose 144 H (74-99) mg/dL POC Glucose (mg/dL) (75-99) mg/dL Uric Acid (3.5-8.5) mg/dL Calcium 7.5 L (8.4-10.2) mg/dL Magnesium 2.5 H (1.6-2.3) mg/dL AST (17-59) U/L Total Creatine Kinase (55-170) U/L CK-MB (CK-2) (0.0-2.4) ng/mL Troponin I (0.000-0.034) ng/mL Total Protein (6.3-8.2) g/dL Albumin (3.5-5.0) g/dL Crossmatch 03/26/19 Range/Units 08:18 WBC (3.8-10.6) k/uL RBC (4.30-5.90) m/uL Hgb (13.0-17.5) gm/dL Hct (39.0-53.0) % RDW (11.5-15.5) % Plt Count (150-450) k/uL Neutrophils # (Manual) (1.3-7.7) k/uL Lymphocytes # (Manual) (1.0-4.8) k/uL PT (9.0-12.0) sec INR (<1.2) ABG pH (7.35-7.45) ABG pCO2 (35-45) mmHg ABG pO2 (83-108) mmHg ABG HCO3 (21-25) mmol/L ABG O2 Saturation (94-97) % Chloride 114 H (98-107) mmol/L Carbon Dioxide 16 L (22-30) mmol/L BUN 45 H (9-20) mg/dL Glucose 120 H (74-99) mg/dL POC Glucose (mg/dL) (75-99) mg/dL Uric Acid 10.7 H (3.5-8.5) mg/dL Calcium 7.4 L (8.4-10.2) mg/dL Magnesium (1.6-2.3) mg/dL AST 133 H (17-59) U/L Total Creatine Kinase (55-170) U/L CK-MB (CK-2) (0.0-2.4) ng/mL Troponin I (0.000-0.034) ng/mL Total Protein 4.5 L (6.3-8.2) g/dL Albumin 2.7 L (3.5-5.0) g/dL Crossmatch Microbiology - Last 24 Hours (Table) 03/23/19 18:07 Blood Culture - Preliminary Blood No Growth after 48 hours 03/24/19 01:00 Urine Culture - Final Urine,Clean Catch Assessment and Plan Assessment: Assessment and Plan Acute hypoxic respiratory failure likely secondary to pneumonia in immunocompr omised patients Sepsis likely secondary to Hospital-acquired pneumonia or possible intra- abdominal pathology Type II TN Anemia Abdominal pain likely secondary to adenopathy seen on CT. CLL with leukocytosis of 64.4 Lactic acidosis History of CAD/CVA Hypertension Atrial fibrillation Hyperlipidemia CODE BLUE called for acute hypoxic respiratory failure, patient intubated. ABG overnight shows pH 7.15 indicating primary respiratory acidosis secondary metabolic acidosis. PH on ABG improved overnight. Likely secondary to hospital-acquired pneumonia. Plan: Full vent support as per pulmonology. L evophed to maintain MAP greater than 65. Continue IV antibiotics and treatment of pneumonia and possible intra-abdominal pathology. Follow cardiology for elevated troponins. Leukocytosis of 64.4, BP as low as 82/48, tachycardic to 107, lactic acid of 2.6 with no clear source of infection on admission. Repeat lactic acid within normal limits. Urine culture negative. Blood culture negative at 48 hours. 03/12/2019 Chest x-ray shows worsening of the right-sided peribronchial cuffing, concerns for pneumonia. Plan: Patient currently on cefepime and Flagyl. Will start vancomycin and levofloxacin for coverage of MRSA and second pseudomonal coverage. Tylenol as needed for fever. Continue normal saline at 100 mL per hour. Follow blood culture. Daily CBC. Follow ID consultation. Initial troponin less than 0.012. EKG ordered yesterday for concerns of tachycardia, with ST depression, troponin reordered to rule out ACS. Repeat troponin 3.650, 8.210, 20.4. Discussed with Dr. Rajput yesterday, recommendation for ICU transfer. Possibly related to demand ischemia from severe anemia versus primary cardiac event. Plan: Telemetry monitoring. Continue aspirin. Cardiology consulted, echocardiogram ordered. As per Dr. Rajput, not candidate for aggressive cardiac workup. Follow cardiology recommendations. No heparin due to severe anemia. Hemoglobin 5.8 to 7.9 s/p 2 unit PRBC 03/26/2019. Normocytic. LDH 854, indicating hemolysis. Reticulocyte count 2.6, indicating hypo-proliferation. Plan: Daily CBC. Transfuse if hemoglobin less than 7. Possible steroids as per oncology. Follow oncology recommendations. CT shows retroperitoneal adenopathy which encases the aorta and renal arteries. UA negative for nitrite or leukocyte esterase. Amylase and lipase within normal limits. Oncology consulted, believes enlarged lymph node is likely due to acute illness. Plan: Zofran as needed for nausea and vomiting. Morphine, [place] or Toradol as needed for severe pain. Continue IV antibiotics. Follow oncology recommendations. Leukocytosis of 64.4-71.3. Previous diagnosis of CLL, taken care of by Dr. Hernandez. Oncology consulted, if patient doesn't improve with treatment of acute illness, plans for restaging and repeat biopsy. Plan: Daily CBC. Follow oncology recommendations. Lactic acid 2.6-3.7-1.4 likely secondary to dehydration but concerns for sepsis. Plan: Continue normal saline at 100 mL/h. Continue IV antibiotics. Resolved. 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 Plan: Continue aspirin and simvastatin. BP 125/49. Plan: Continue metoprolol. Monitor vitals, adjust medications as necessary. Currently rate controlled. Plan: Continue metoprolol. Continue Propafenone. No anticoagulation due to severe anemia. Lipid panel within normal limits except for HDL of 16 and July 2016. Plan: Continue simvastatin. NEHA FERRELL called overnight for respiratory failure, intubated to protect airway. Troponins continued up trend, cardiology on board. Patient admitted for abdominal pain, found to have retroperitoneal adenopathy, oncology consulted. Found to be hypotensive with elevated lactic acid, concerns for sepsis, started on broad-spectrum antibiotics, ID on consult. Found to have low hemoglobin, 2 PRBCs ordered. Prognosis is guarded at this time. He names his Yamilet the decision maker indicates that he can't make decisions for himself. Patient reiterates wanting to be full code.
[2019-03-26] MEDS ORDERED: LEVOFLOXACIN 750MG-D5W PMX 750 MG in DEXTROSE/WATER 1 150ML.BAG IVPB SCH (10:00)
[2019-03-26] MEDS: METOPROLOL TARTRATE 12.5 MG TAB PO SCH ×2 (10:10→20:24)
[2019-03-26] MEDS: PROPAFENONE 225 MG TAB PO SCH (10:11)
[2019-03-26] MEDS: VANCOMYCIN 1,500 MG in SODIUM CHLORIDE 0.9% 250 ML IVPB SCH (10:20)
[2019-03-26] MEDS: CEFEPIME 2 GM in SODIUM CHLORIDE 0.9% 100 ML IVPB SCH ×2 (10:44→20:22)
[2019-03-26] MEDS: metroNIDAZOLE 500 MG TAB PO SCH ×3 (10:44→20:51)
--- NOTE | 2019-03-26 11:44 | CONS ---
CONSULTATION DATE OF SERVICE: March 26, 2019 HISTORY OF PRESENT ILLNESS: This is an 78-year-old male who apparently was admitted back on March 23. He came in with diverticulosis and abdominal pain. He was transferred to the ICU on March 25. He was transferred here because the patient was thought to be unstable on the floor and I did discuss the case with the [facility] physician group. I agreed to accept the patient to the ICU. Early on, his hospitalization in the ICU was stable. The patient then apparently became very disoriented and started pulling everything off including his leads, his IV fluids and so forth and IV line. The patient was then found to be walking in the room. At that point, his respiratory status declined. Heart rate dropped and blood pressure dropped and his saturations dropped and he was placed back in bed and intubated electively. The patient is currently still on the ventilator. Past medical history includes he has a significant past medical history for chronic lymphocytic leukemia, chronic anemia with multiple blood transfusions, atrial fibrillation, hyperlipidemia, hypertension, myocardial infarction, pneumonia and sepsis. Currently, he is on the volume assist-control mode rate of 20, tidal volume 450, FiO2 50% to be dropped to 40% with a PEEP of 5. Arterial blood gases show very mild metabolic acidosis. PO2 is 159, pCO2 is 35, and a pH of 7.33. The patient's IV is a 0.9 IV 100 mL an hour, Levophed at 9 mics per minute and propofol at 50 mcg/kg per per minute. Microbiologic studies thus far negative. Chest x-ray shows a possible right lower lobe infiltrate, infiltrate and bilateral pleural effusions. He received 3 L of fluid resuscitation here in the ICU. CURRENT HOME MEDICATIONS: Include Rythmol, Zocor, Lopressor, Levaquin. ALLERGIES: Denied. MEDICAL HISTORY: As mentioned include chronic lymphocytic leukemia, anemia, myocardial infarction, hypertension, atrial fibrillation, chronic lymphocytic leukemia, pneumonia and sepsis. He also has a history of inguinal hernia, skin cancer, non ST-segment elevation myocardial infarction, shingles, and decubitus ulcers. He has also had a ocular stroke. SURGICAL HISTORY: Includes among other things, hernia repair, tonsillectomy, bilateral rotator cuff surgery, cataract surgery, umbilical hernia repair and right axillary lymph node biopsy. He has also had a colonoscopy. SOCIAL HISTORY: Positive for previous tobacco use. Denies any alcohol or illicit drug use. FAMILY HISTORY: Positive for myocardial infarction, CHF and peripheral vascular occlusive disease. REVIEW OF SYSTEMS: Cannot be obtained. The patient is currently sedated and on the mechanical ventilator. Again, he was intubated on March 26. PHYSICAL EXAMINATION: VITAL SIGNS: Current vital signs include a temperature 99, heart rate 100, respiratory rate 20, blood pressure 101/68 mean 79 and saturations are 97% on FiO2 40%, 5 of PEEP. GENERAL: Currently sedated. No acute distress. HEENT examination is grossly unremarkable. Mucous membranes are moist. Endotracheal tube is noted. NG tube is noted. NECK: Supple. Full range of motion. No adenopathy. A left internal jugular line was just placed by myself. CARDIOVASCULAR examination reveals tachycardia. It is some irregularity to it. S1, S2 normal. No murmur noted. Heart sounds are distant. LUNGS: Reveal diffuse coarse rhonchi. There is some bibasilar crackles. Breath sounds equal bilaterally. ABDOMEN: Soft. Bowel sounds are not noted. No masses. EXTREMITIES are intact. Slight edema noted. SKIN is without rash. NEUROLOGIC examination could not be adequately performed as the patient is currently sedated heavily. LABORATORY DATA: Reviewed. White count is 71.3, hemoglobin 7.9, hematocrit 24.3, platelet count 120,000. Sodium 139, potassium 4.8, chloride 114, CO2 16, BUN and creatinine were 45 and 1.14. Electrolytes are consistent with non anion gap hyperchloremic metabolic acidosis. Glucose 120, uric acid 10.7, calcium 10.4, phosphorus 4.2. Troponin 20.4. AST 133, albumin 2.7. Chest x-ray from this morning shows a properly placed endotracheal tube. Also chest x-ray from yesterday shows a right-sided infiltrate with bilateral pleural effusions. There also may be some bibasilar atelectasis. Microbiologic studies are thus far all negative. Medications are reviewed. ASSESSMENT: 1. Hypoxemic respiratory failure requiring intubation and mechanical ventilation. 2. History of abdominal pain with diverticular disease. 3. History of chronic lymphocytic leukemia. 4. Chronic anemia with multiple blood transfusions in the past. 5. History of atrial fibrillation. 6. Hyperlipidemia. 7. Hypertension. 8. History of myocardial infarction. 9. History of pneumonia. 10.History of sepsis. 11.Elevated troponins, rule out myocardial ischemia. 12.Hypotension, requiring norepinephrine, likely related to underlying sepsis and/or cardiac disease. PLAN: The patient will get a stat EKG. The troponins are quite elevated. I know Cardiology is currently seeing the patient. Internal jugular line was placed on the left. We will place an art line. The patient's FiO2 will be dropped from 50% to 40%. Reviewed. Prognosis is guarded. We will continue to follow closely. No additional recommendations are made. A number of different doctors are involved including Infectious Diseases, the hospitalist group and oncology as well as Cardiology. MMODL / IJN: [id number] / MTDD
[2019-03-26] MEDS: INSULIN ASPART (NovoLOG) 100 UNIT/ML VIAL SQ SCH ×2 (11:50→18:00)
[2019-03-26 12:01] LABS: Glucose,Whole Blood 112 mg/dL (75-99)
--- NOTE | 2019-03-26 13:13 | ECHOF ---
Referral Reason:mi MEASUREMENTS -------- HEIGHT: 172.7 cm WEIGHT: 79.4 kg BP: 125/49 RVIDd: 3.3 cm (< 3.3) IVSd: 1.2 cm (0.6 - 1.1) LVIDd: 4.9 cm (3.9 - 5.3) LVPWd: 1.3 cm (0.6 - 1.1) IVSs: 1.4 cm LVIDs: 3.3 cm LVPWs: 1.7 cm LA Diam: 3.9 cm (2.7 - 3.8) LAESV Index (A-L): 29.28 ml/m Ao Diam: 3.6 cm (2.0 - 3.7) AV Cusp: 1.0 cm (1.5 - 2.6) MV EXCURSION: 21.518 mm (> 18.000) MV EF SLOPE: 152 mm/s (70 - 150) EPSS: 1.2 cm MV E Mamadou: 1.01 m/s MV DecT: 88 ms MV A Mamadou: 1.24 m/s MV E/A Ratio: 0.81 AV maxP.11 mmHg AV meanP.94 mmHg RAP: 5.00 mmHg RVSP: 43.76 mmHg FINDINGS -------- Sinus rhythm. Resting tachycardia (HR>100bpm). This was a technically difficult study with suboptimal views. The left ventricular size is normal. There is mild concentric left ventricular hypertrophy. Overa ll left ventricular systolic function is moderately impaired with, an EF between 35 - 40 %. Mid ant erior LV wall motion is hypokinetic. Mid anteroseptal LV wall motion is hypokinetic. Apical ant erior LV wall motion is akinetic. Apical lateral LV wall motion is akinetic. Apical inferior LV wall motion is akinetic. Apical septum LV wall motion is akinetic. The right ventricle is mildly enlarged. LA is midly dilated 29-33ml/m2. The right atrium is normal in size. 3 ml of Lumason was utilized for enhancement of images. Interatrial and interventricular septum intact. There is mild to moderate aortic valve sclerosis. There is mild aortic stenosis present. Peak/jenelle n gradient across the Aortic Valve is 33.11mmHg / 16.94mmHg. The mitral valve leaflets are mildly thickened. Mild mitral annular calcification present. Mild m itral regurgitation is present. Mild tricuspid regurgitation present. There is mild pulmonary hypertension. The right ventricular systolic pressure, as measured by Doppler, is 43.76mmHg. The pulmonic valve was not well visualized. There is no pulmonic regurgitation present. The aortic root size is normal. IVC Not well visulized. There is no pericardial effusion. CONCLUSIONS -------- 1. Sinus rhythm. 2. Resting tachycardia (HR>100bpm). 3. This was a technically difficult study with suboptimal views. 4. The left ventricular size is normal. 5. There is mild concentric left ventricular hypertrophy. 6. Overall left ventricular systolic function is moderately impaired with, an EF between 35 - 40 %. 7. Mid anterior LV wall motion is hypokinetic. 8. Mid anteroseptal LV wall motion is hypokinetic. 9. Apical anterior LV wall motion is akinetic. 10. Apical lateral LV wall motion is akinetic. 11. The right ventricle is mildly enlarged. 12. LA is midly dilated 29-33ml/m2. 13. 3 ml of Lumason was utilized for enhancement of images. 14. Interatrial and interventricular septum intact. 15. There is mild to moderate aortic valve sclerosis. 16. There is mild aortic stenosis present. 17. Peak/mean gradient across the Aortic Valve is 33.11mmHg / 16.94mmHg. 18. The mitral valve leaflets are mildly thickened. 19. Mild mitral annular calcification present. 20. Mild mitral regurgitation is present. 21. Mild tricuspid regurgitation present. 22. There is mild pulmonary hypertension. 23. The pulmonic valve was not well visualized. 24. There is no pulmonic regurgitation present. 25. The aortic root size is normal. 26. IVC Not well visulized. 27. There is no pericardial effusion. COOK SHIP: Allison Tee RDCS
[2019-03-26] MEDS: MORPHINE SULFATE 4 MG/ML SYRINGE IV PRN (16:37)
--- NOTE | 2019-03-26 16:54 | P.PN ---
Subjective Progress Note Date: 03/26/19 The patient developed progressive shortness of breath, hypotension, and tachycardia after my evaluation yesterday. This was also completed with metastatic changes. He had to be transferred to the ICU and subsequently intubated. Labs showed significant elevation of troponin in the 20+ range, indicating a non-ST FELISHA. Patient is currently on the vent, and on pressors. Objective - Vital Signs Vital signs: Vital Signs Temp 98.9 F 03/26/19 16:00 Pulse 114 H 03/26/19 16:00 Resp 28 H 03/26/19 16:00 BP 88/60 03/26/19 16:00 Pulse Ox 99 03/26/19 16:00 Intake & Output 03/25/19 03/26/19 03/26/19 18:59 06:59 18:59 Intake Total 600 4977.445 1682.019 Output Total 30 360 1365 Balance 570 4617.445 317.019 Weight 84.1 kg Intake: Intake, IV Titration 100 4047.445 1622.019 Amount Cefepime 2 gm In Sodium 100 100 Chloride 0.9% 100 ml @ 200 mls/hr IVPB Q12H [facility] Rx#:[id number] Norepinephrine 4 mg In 168.304 283.076 Sodium Chloride 0.9% 250 ml @ 0.05 MCG/KG/MIN 15. 122 mls/hr IV .[id number] [facility] Rx#:[id number] Propofol 1,000 mg In 79.141 188.943 Empty Bag 1 bag @ Titrate IV .Q0M [facility] Rx#: [id number] Sodium Chloride 0.9% 1, 100 700 800 000 ml @ 100 mls/hr IV . Q10H [facility] Rx#:[id number] Sodium Chloride 0.9% 2, 3000 000 ml @ 999 mls/hr IV . Q2H1M [facility] Rx#:[id number] Vancomycin 1,500 mg In 250 Sodium Chloride 0.9% 250 ml @ 125 mls/hr IVPB Q16H [facility] Rx#:[id number] Oral 500 Blood Product 930 Rc As-1 Unit 310 [id number] Rc As-1 Unit 310 [id number] Other 60 Output: Gastric Drainage 800 Urine 30 360 565 Other: Voiding Method Indwelling Catheter Indwelling Catheter # Voids 2 ABP, PAP, CO, CI - Last Documented Arterial Blood Pressure 134/62 - Constitutional Constitutional Comment(s): Intubated on vent - Respiratory Respiratory: bilateral: diminished - Cardiovascular Rhythm: irregularly irregular Heart sounds: normal: S1, S2 - Gastrointestinal General gastrointestinal: Present: decreased bowel sounds, soft - Integumentary Integumentary: Present: normal - Neurologic Neurologic Comment(s): Sedated, on ventilator - Labs CBC & Chem 7: 03/26/19 08:18 03/26/19 08:18 Labs: Abnormal Lab Results - Last 24 Hours (Table) 03/25/19 03/25/19 03/25/19 Range/Units 13:53 17:18 21:29 WBC (3.8-10.6) k/uL RBC (4.30-5.90) m/uL Hgb (13.0-17.5) gm/dL Hct (39.0-53.0) % RDW (11.5-15.5) % Plt Count (150-450) k/uL Neutrophils # (Manual) (1.3-7.7) k/uL Lymphocytes # (Manual) (1.0-4.8) k/uL Monocytes # (Manual) (0-1.0) k/uL PT (9.0-12.0) sec INR (<1.2) ABG pH (7.35-7.45) ABG pCO2 (35-45) mmHg ABG pO2 (83-108) mmHg ABG HCO3 (21-25) mmol/L ABG O2 Saturation (94-97) % Chloride (98-107) mmol/L Carbon Dioxide (22-30) mmol/L BUN (9-20) mg/dL Glucose (74-99) mg/dL POC Glucose (mg/dL) 149 H (75-99) mg/dL Uric Acid (3.5-8.5) mg/dL Calcium (8.4-10.2) mg/dL Magnesium (1.6-2.3) mg/dL AST (17-59) U/L Total Creatine Kinase (55-170) U/L CK-MB (CK-2) (0.0-2.4) ng/mL Troponin I 8.210 H* (0.000-0.034) ng/mL Total Protein (6.3-8.2) g/dL Albumin (3.5-5.0) g/dL Crossmatch See Detail 03/26/19 03/26/19 03/26/19 Range/Units 01:40 02:16 02:40 WBC (3.8-10.6) k/uL RBC (4.30-5.90) m/uL Hgb (13.0-17.5) gm/dL Hct (39.0-53.0) % RDW (11.5-15.5) % Plt Count (150-450) k/uL Neutrophils # (Manual) (1.3-7.7) k/uL Lymphocytes # (Manual) (1.0-4.8) k/uL Monocytes # (Manual) (0-1.0) k/uL PT 13.8 H (9.0-12.0) sec INR 1.4 H (<1.2) ABG pH 7.15 L* (7.35-7.45) ABG pCO2 50 H (35-45) mmHg ABG pO2 >400 H (83-108) mmHg ABG HCO3 17 L (21-25) mmol/L ABG O2 Saturation 99.8 H (94-97) % Chloride (98-107) mmol/L Carbon Dioxide (22-30) mmol/L BUN (9-20) mg/dL Glucose (74-99) mg/dL POC Glucose (mg/dL) 170 H (75-99) mg/dL Uric Acid (3.5-8.5) mg/dL Calcium (8.4-10.2) mg/dL Magnesium (1.6-2.3) mg/dL AST (17-59) U/L Total Creatine Kinase (55-170) U/L CK-MB (CK-2) (0.0-2.4) ng/mL Troponin I (0.000-0.034) ng/mL Total Protein (6.3-8.2) g/dL Albumin (3.5-5.0) g/dL Crossmatch 03/26/19 03/26/19 03/26/19 Range/Units 02:40 05:03 08:18 WBC 71.3 H* (3.8-10.6) k/uL RBC 2.71 L (4.30-5.90) m/uL Hgb 7.9 L D (13.0-17.5) gm/dL Hct 24.3 L (39.0-53.0) % RDW 17.4 H (11.5-15.5) % Plt Count 120 L (150-450) k/uL Neutrophils # (Manual) 9.27 H (1.3-7.7) k/uL Lymphocytes # (Manual) 60.61 H (1.0-4.8) k/uL Monocytes # (Manual) 1.43 H (0-1.0) k/uL PT (9.0-12.0) sec INR (<1.2) ABG pH 7.33 L (7.35-7.45) ABG pCO2 (35-45) mmHg ABG pO2 159 H (83-108) mmHg ABG HCO3 19 L (21-25) mmol/L ABG O2 Saturation 99.2 H (94-97) % Chloride 112 H (98-107) mmol/L Carbon Dioxide 17 L (22-30) mmol/L BUN 43 H (9-20) mg/dL Glucose 144 H (74-99) mg/dL POC Glucose (mg/dL) (75-99) mg/dL Uric Acid (3.5-8.5) mg/dL Calcium 7.5 L (8.4-10.2) mg/dL Magnesium 2.5 H (1.6-2.3) mg/dL AST (17-59) U/L Total Creatine Kinase (55-170) U/L CK-MB (CK-2) (0.0-2.4) ng/mL Troponin I (0.000-0.034) ng/mL Total Protein (6.3-8.2) g/dL Albumin (3.5-5.0) g/dL Crossmatch 03/26/19 03/26/19 03/26/19 Range/Units 08:18 08:18 11:48 WBC (3.8-10.6) k/uL RBC (4.30-5.90) m/uL Hgb (13.0-17.5) gm/dL Hct (39.0-53.0) % RDW (11.5-15.5) % Plt Count (150-450) k/uL Neutrophils # (Manual) (1.3-7.7) k/uL Lymphocytes # (Manual) (1.0-4.8) k/uL Monocytes # (Manual) (0-1.0) k/uL PT (9.0-12.0) sec INR (<1.2) ABG pH (7.35-7.45) ABG pCO2 (35-45) mmHg ABG pO2 (83-108) mmHg ABG HCO3 (21-25) mmol/L ABG O2 Saturation (94-97) % Chloride 114 H (98-107) mmol/L Carbon Dioxide 16 L (22-30) mmol/L BUN 45 H (9-20) mg/dL Glucose 120 H (74-99) mg/dL POC Glucose (mg/dL) 112 H (75-99) mg/dL Uric Acid 10.7 H (3.5-8.5) mg/dL Calcium 7.4 L (8.4-10.2) mg/dL Magnesium (1.6-2.3) mg/dL AST 133 H (17-59) U/L Total Creatine Kinase (55-170) U/L CK-MB (CK-2) (0.0-2.4) ng/mL Troponin I 20.400 H* (0.000-0.034) ng/mL Total Protein 4.5 L (6.3-8.2) g/dL Albumin 2.7 L (3.5-5.0) g/dL Crossmatch 03/26/19 Range/Units 15:49 WBC (3.8-10.6) k/uL RBC (4.30-5.90) m/uL Hgb (13.0-17.5) gm/dL Hct (39.0-53.0) % RDW (11.5-15.5) % Plt Count (150-450) k/uL Neutrophils # (Manual) (1.3-7.7) k/uL Lymphocytes # (Manual) (1.0-4.8) k/uL Monocytes # (Manual) (0-1.0) k/uL PT (9.0-12.0) sec INR (<1.2) ABG pH (7.35-7.45) ABG pCO2 (35-45) mmHg ABG pO2 (83-108) mmHg ABG HCO3 (21-25) mmol/L ABG O2 Saturation (94-97) % Chloride (98-107) mmol/L Carbon Dioxide (22-30) mmol/L BUN (9-20) mg/dL Glucose (74-99) mg/dL POC Glucose (mg/dL) (75-99) mg/dL Uric Acid (3.5-8.5) mg/dL Calcium (8.4-10.2) mg/dL Magnesium (1.6-2.3) mg/dL AST (17-59) U/L Total Creatine Kinase 720 H (55-170) U/L CK-MB (CK-2) 102.0 H (0.0-2.4) ng/mL Troponin I (0.000-0.034) ng/mL Total Protein (6.3-8.2) g/dL Albumin (3.5-5.0) g/dL Crossmatch Microbiology - Last 24 Hours (Table) 03/26/19 02:23 Gram Stain - Preliminary Sputum Sputum Culture - Preliminary 03/23/19 18:07 Blood Culture - Preliminary Blood No Growth after 48 hours Assessment and Plan (1) Acute non-ST elevation myocardial infarction (NSTEMI) Narrative/Plan: The patient has developed acute cardiac respiratory failure due to the above. He has a prior history of atrial fibrillation and [id number] decreased ejection fraction. The patient has been having some hypotension, tachycardia as well as anemia which are likely precipitating factors. Duration of anemia was however quite short. Therefore most likely the patient has underlying coronary artery disease. He has been evaluated by cardiology, and is not felt to be a candidate for aggressive cardiac intervention at this time. Medical management has been recommended. He is on aggressive ventilator and pressors support. Continue management per CCM, and cardiology Current Visit: No Status: Acute Code(s): I21.4 - NON-ST ELEVATION (NSTEMI) MYOCARDIAL INFARCTION SNOMED Code(s): 317013827 (2) Anemia Narrative/Plan: No evidence of hemolysis. This is felt to be due to marrow suppression, from inflammation and/or progression of his malignancy. Hemoglobin has improved appropriately posttransfusion. Continue to monitor and transfuse to keep h emoglobin above 7. Current Visit: No Status: Acute Code(s): D64.9 - ANEMIA, UNSPECIFIED SNOMED Code(s): 965006202 (3) CAP (community acquired pneumonia) Narrative/Plan: Continue antibiotics Current Visit: No Status: Acute Code(s): J18.9 - PNEUMONIA, UNSPECIFIED ORGANISM SNOMED Code(s): 509441337 (4) Chronic lymphocytic leukemia Narrative/Plan: There was concern for progression/transformation, based on the patient's leukocytosis, and increased adenopathy and abdominal pain. This was not definitive, with the other possibility being transient reactive process due to underlying infection. The plan was to start him on steroids, if his symptoms persisted today, and plan for biopsy. Steroids can be started at this time, but the main benefit would have been to provide symptomatic relief from his abdominal pain, which is not an issue at this time as the patient decision and on the vent. If the patient was in the having progressive disease, then major therapeutic benefit would not have been expected from steroids and on. In addition high-dose steroids may have a detrimental effect in the setting of acute PR. Therefore we'll hold off on the same. Current Visit: Yes Status: Chronic Priority: Medium Code(s): C91.10 - CHRONIC LYMPHOCYTIC LEUK OF B-CELL TYPE NOT ACHIEVE REMIS SNOMED Code(s): 80845942 (5) Abdominal pain Current Visit: Yes Status: Acute Code(s): R10.9 - UNSPECIFIED ABDOMINAL PAIN SNOMED Code(s): 43236142 Plan: At a long discussion with the patient's family members were at the bedside. I have discussed CODE STATUS and life support with the patient previously in the outpatient setting. He has always indicated that he did not want any prolonged life support unless there was no reasonable hope of him regaining a good performance status. He had indicated the same to his family also. They expressed understanding that his prognosis is quite guarded. At this time the decision was made to change him to no CODE STATUS. If the patient deteriorates despite current aggressive management, or if he does not show significant improvement over the next 1-2 days, then most likely they will decide to transition to comfort care
[2019-03-26] MEDS ORDERED: MORPHINE SULFATE 4 MG/ML SYRINGE IV PRN (17:06)
[2019-03-26 17:40] LABS: Glucose,Whole Blood 107 mg/dL (75-99)
[2019-03-26] MEDS ORDERED: AMIODARONE 360 MG in DEXTROSE 5% IN WATER 200 ML IV ONE ×2 (18:10)
[2019-03-26] MEDS ORDERED: DEXTROSE 5% IN WATER 100 ML with AMIODARONE 150 MG IV ONE (18:10)
--- NOTE | 2019-03-26 20:20 | PCN ---
PROCEDURE NOTE PROCEDURE PERFORMED: Right radial arterial line placement. PREOP DIAGNOSIS: Septic shock. POSTOP DIAGNOSIS: Septic shock. ARTERIAL LINE PLACEMENT: Indications: Hemodynamic monitoring. A time-out was completed verifying correct patient, procedure, site, positioning, and implant(s) or special equipment if applicable. Mickey's test was performed to ensure adequate perfusion. The patient's right wrist prepped and draped in sterile fashion. 1% Lidocaine was used to anesthetize the area. An 18G Arrow arterial line was introduced into the radial artery. The catheter was threaded over the guide wire and the needle was removed with appropriate pulsatile blood return. Blood loss was minimal. The catheter was then sutured in place to the skin and a sterile dressing applied. Perfusion to the extremity distal to the point of catheter insertion was checked and found to be adequate. The patient tolerated the procedure well and there were no complications. The blood return was noted, line was flushed, good waveform was noted, line was sutured in place, sterile dressing was applied. MMODL / IJN: [id number] /
--- NOTE | 2019-03-26 20:20 | PCN ---
PROCEDURE NOTE PROCEDURE PERFORMED: Left internal jugular triple-lumen catheter. PREOP DIAGNOSIS: Administration of fluids and pressors. POSTOP DIAGNOSIS: Administration of fluids and pressors. BOWLING BALL PATCHER: Dr. Rizzo. TRIPLE LUMEN CATHETER PLACEMENT: Indication: Hemodynamic monitoring/Intravenous access. A time-out was completed verifying correct patient, procedure, site, positioning, and implant(s) or special equipment if applicable. The patient was placed in a dependent position appropriate for triple lumen catheter placement based on the vein to be cannulated. The patient's left neck was prepped and draped in sterile fashion. 1% Lidocaine was used to anesthetize the surrounding skin area. A triple lumen 9F Cordis catheter was introduced into the internal jugular vein posterior approach, using Seldinger technique. The catheter was threaded smoothly over the guide wire and appropriate blood return was obtained. Each lumen of the catheter was evacuated of air and flushed with sterile saline. The catheter was then sutured in place to the skin and a sterile dressing applied. Perfusion to the extremity distal to the point of catheter insertion was checked and found to be adequate. We used the left internal jugular vein posterior approach. There was no immediate complication. There was good blood return from all 3 ports. A chest x-ray was ordered. The tip of the catheter is in the inferior vena cava. There was no immediate complication. The catheter was sutured in place and sterile dressing was applied by the nurse. MMSUKH / RUTHANN: [id number] /
[2019-03-26] MEDS: ATORVASTATIN 20 MG TAB PO SCH (20:23)
[2019-03-26] MEDS: ACETAMINOPHEN TAB 325 MG TAB PO PRN (20:23)
[2019-03-26] MEDS: CHLORHEXIDINE GLUCONATE 15 ML CUP MUCOUS MEM SCH (22:38)
[2019-03-27] MEDS: NOREPINEPHRINE 4 MG in SODIUM CHLORIDE 0.9% 250 ML IV SCH ×5 (00:09→19:52)
[2019-03-27] MEDS: INSULIN ASPART (NovoLOG) 100 UNIT/ML VIAL SQ SCH ×4 (00:26→19:54)
[2019-03-27] MEDS: AMIODARONE 300 MG in DEXTROSE 5% IN WATER 250 ML IV SCH ×6 (00:28→20:26)
[2019-03-27 00:34] LABS: Glucose,Whole Blood 133 mg/dL (75-99)
--- NOTE | 2019-03-27 00:34 | P.PN ---
Subjective Progress Note Date: 03/26/19 Principal diagnosis: Sepsis and possible aspiration pneumonia and diverticulitis Patient initially admitted hospital with abdominal pain in this patient did have significant increase in size of abdominal lymphadenopathy and possible component of diverticulitis patient was transferred to the ICU because of hypotension this morning the patient did have significant change in his clinical condition and the patient repeat of his IV and leads subsequently did have significant drop in the blood pressure and respiratory distress patient up getting intubated currently on Levophed for blood pressure support most information has been obtained from discussing the case with the patient RN and the family at the bedside Objective - Vital Signs Vital signs: Vital Signs Temp 101.2 F H 03/26/19 20:00 Pulse 142 H 03/26/19 21:00 Resp 29 H 03/26/19 21:00 BP 83/59 03/26/19 19:00 Pulse Ox 97 03/26/19 21:00 Intake & Output 03/26/19 03/26/19 03/27/19 06:59 18:59 06:59 Intake Total 4977.445 2268.195 451.733 Output Total 360 1575 120 Balance 4617.445 693.195 331.733 Weight 84.1 kg Intake: Intake, IV Titration 4047.445 2148.195 451.733 Amount Amiodarone 360 mg In 33.3 Dextrose 5% in Water 200 ml @ 1 MG/MIN 33.333 mls/ hr IV .Q6H [facility] Rx#: [id number] Cefepime 2 gm In Sodium 100 100 100 Chloride 0.9% 100 ml @ 200 mls/hr IVPB Q12H [facility]#:[id number] Dextrose 5% in Water 100 100 ml @ 618 mls/hr IV .Q10M [facility] with Amiodarone 150 mg Rx#:[id number] Norepinephrine 4 mg In 168.304 309.036 78.583 Sodium Chloride 0.9% 250 ml @ 0.05 MCG/KG/MIN 15. 122 mls/hr IV .[id number] [facility] Rx#:[id number] Propofol 1,000 mg In 79.141 255.859 98.15 Empty Bag 1 bag @ Titrate IV .Q0M [facility] Rx#: [id number] Sodium Chloride 0.9% 1, 700 1100 175 000 ml @ 100 mls/hr IV . Q10H [facility] Rx#:[id number] Sodium Chloride 0.9% 2, 3000 000 ml @ 999 mls/hr IV . Q2H1M [facility] Rx#:[id number] Vancomycin 1,500 mg In 250 Sodium Chloride 0.9% 250 ml @ 125 mls/hr IVPB Q16H [facility] Rx#:[id number] Blood Product 930 Rc As-1 Unit 310 [id number] Rc As-1 Unit 310 [id number] Other 120 Output: Gastric Drainage 800 Urine 360 775 120 Other: Voiding Method Indwelling Catheter Indwelling Catheter Indwelling Catheter ABP, PAP, CO, CI - Last Documented Arterial Blood Pressure 100/54 - Exam GENERAL DESCRIPTION: The patient currently intubated on the vent and sedated HEENT: [Oral mucosa is dry and patient is orally intubated] EYES : [pallor or scleral icterus] RESPIRATORY SYSTEM: [Unlabored breathing decreased breath sound at the base] CARDIA VASCULAR SYSTEM: [S1-S2 regular rate and rhythm no murmur] GI: [Abdominal soft there's no tenderness no organomegaly] EXTREMITIES: [No edema feet] - Labs CBC & Chem 7: 03/26/19 08:18 03/26/19 08:18 Labs: Abnormal Lab Results - Last 24 Hours (Table) 03/25/19 03/25/19 03/26/19 Range/Units 13:53 21:29 01:40 WBC (3.8-10.6) k/uL RBC (4.30-5.90) m/uL Hgb (13.0-17.5) gm/dL Hct (39.0-53.0) % RDW (11.5-15.5) % Plt Count (150-450) k/uL Neutrophils # (Manual) (1.3-7.7) k/uL Lymphocytes # (Manual) (1.0-4.8) k/uL Monocytes # (Manual) (0-1.0) k/uL PT (9.0-12.0) sec INR (<1.2) ABG pH (7.35-7.45) ABG pCO2 (35-45) mmHg ABG pO2 (83-108) mmHg ABG HCO3 (21-25) mmol/L ABG O2 Saturation (94-97) % Chloride (98-107) mmol/L Carbon Dioxide (22-30) mmol/L BUN (9-20) mg/dL Glucose (74-99) mg/dL POC Glucose (mg/dL) 170 H (75-99) mg/dL Uric Acid (3.5-8.5) mg/dL Calcium (8.4-10.2) mg/dL Magnesium (1.6-2.3) mg/dL AST (17-59) U/L Total Creatine Kinase (55-170) U/L CK-MB (CK-2) (0.0-2.4) ng/mL Troponin I 8.210 H* (0.000-0.034) ng/mL Total Protein (6.3-8.2) g/dL Albumin (3.5-5.0) g/dL Crossmatch See Detail 03/26/19 03/26/19 03/26/19 Range/Units 02:16 02:40 02:40 WBC (3.8-10.6) k/uL RBC (4.30-5.90) m/uL Hgb (13.0-17.5) gm/dL Hct (39.0-53.0) % RDW (11.5-15.5) % Plt Count (150-450) k/uL Neutrophils # (Manual) (1.3-7.7) k/uL Lymphocytes # (Manual) (1.0-4.8) k/uL Monocytes # (Manual) (0-1.0) k/uL PT 13.8 H (9.0-12.0) sec INR 1.4 H (<1.2) ABG pH 7.15 L* (7.35-7.45) ABG pCO2 50 H (35-45) mmHg ABG pO2 >400 H (83-108) mmHg ABG HCO3 17 L (21-25) mmol/L ABG O2 Saturation 99.8 H (94-97) % Chloride 112 H (98-107) mmol/L Carbon Dioxide 17 L (22-30) mmol/L BUN 43 H (9-20) mg/dL Glucose 144 H (74-99) mg/dL POC Glucose (mg/dL) (75-99) mg/dL Uric Acid (3.5-8.5) mg/dL Calcium 7.5 L (8.4-10.2) mg/dL Magnesium 2.5 H (1.6-2.3) mg/dL AST (17-59) U/L Total Creatine Kinase (55-170) U/L CK-MB (CK-2) (0.0-2.4) ng/mL Troponin I (0.000-0.034) ng/mL Total Protein (6.3-8.2) g/dL Albumin (3.5-5.0) g/dL Crossmatch 03/26/19 03/26/19 03/26/19 Range/Units 05:03 08:18 08:18 WBC 71.3 H* (3.8-10.6) k/uL RBC 2.71 L (4.30-5.90) m/uL Hgb 7.9 L D (13.0-17.5) gm/dL Hct 24.3 L (39.0-53.0) % RDW 17.4 H (11.5-15.5) % Plt Count 120 L (150-450) k/uL Neutrophils # (Manual) 9.27 H (1.3-7.7) k/uL Lymphocytes # (Manual) 60.61 H (1.0-4.8) k/uL Monocytes # (Manual) 1.43 H (0-1.0) k/uL PT (9.0-12.0) sec INR (<1.2) ABG pH 7.33 L (7.35-7.45) ABG pCO2 (35-45) mmHg ABG pO2 159 H (83-108) mmHg ABG HCO3 19 L (21-25) mmol/L ABG O2 Saturation 99.2 H (94-97) % Chloride 114 H (98-107) mmol/L Carbon Dioxide 16 L (22-30) mmol/L BUN 45 H (9-20) mg/dL Glucose 120 H (74-99) mg/dL POC Glucose (mg/dL) (75-99) mg/dL Uric Acid 10.7 H (3.5-8.5) mg/dL Calcium 7.4 L (8.4-10.2) mg/dL Magnesium (1.6-2.3) mg/dL AST 133 H (17-59) U/L Total Creatine Kinase (55-170) U/L CK-MB (CK-2) (0.0-2.4) ng/mL Troponin I (0.000-0.034) ng/mL Total Protein 4.5 L (6.3-8.2) g/dL Albumin 2.7 L (3.5-5.0) g/dL Crossmatch 03/26/19 03/26/19 03/26/19 Range/Units 08:18 11:48 15:49 WBC (3.8-10.6) k/uL RBC (4.30-5.90) m/uL Hgb (13.0-17.5) gm/dL Hct (39.0-53.0) % RDW (11.5-15.5) % Plt Count (150-450) k/uL Neutrophils # (Manual) (1.3-7.7) k/uL Lymphocytes # (Manual) (1.0-4.8) k/uL Monocytes # (Manual) (0-1.0) k/uL PT (9.0-12.0) sec INR (<1.2) ABG pH (7.35-7.45) ABG pCO2 (35-45) mmHg ABG pO2 (83-108) mmHg ABG HCO3 (21-25) mmol/L ABG O2 Saturation (94-97) % Chloride (98-107) mmol/L Carbon Dioxide (22-30) mmol/L BUN (9-20) mg/dL Glucose (74-99) mg/dL POC Glucose (mg/dL) 112 H (75-99) mg/dL Uric Acid (3.5-8.5) mg/dL Calcium (8.4-10.2) mg/dL Magnesium (1.6-2.3) mg/dL AST (17-59) U/L Total Creatine Kinase 720 H (55-170) U/L CK-MB (CK-2) 102.0 H (0.0-2.4) ng/mL Troponin I 20.400 H* (0.000-0.034) ng/mL Total Protein (6.3-8.2) g/dL Albumin (3.5-5.0) g/dL Crossmatch 03/26/19 03/26/19 Range/Units 17:29 17:30 WBC (3.8-10.6) k/uL RBC (4.30-5.90) m/uL Hgb (13.0-17.5) gm/dL Hct (39.0-53.0) % RDW (11.5-15.5) % Plt Count (150-450) k/uL Neutrophils # (Manual) (1.3-7.7) k/uL Lymphocytes # (Manual) (1.0-4.8) k/uL Monocytes # (Manual) (0-1.0) k/uL PT (9.0-12.0) sec INR (<1.2) ABG pH (7.35-7.45) ABG pCO2 (35-45) mmHg ABG pO2 (83-108) mmHg ABG HCO3 (21-25) mmol/L ABG O2 Saturation (94-97) % Chloride (98-107) mmol/L Carbon Dioxide (22-30) mmol/L BUN (9-20) mg/dL Glucose (74-99) mg/dL POC Glucose (mg/dL) 107 H (75-99) mg/dL Uric Acid (3.5-8.5) mg/dL Calcium (8.4-10.2) mg/dL Magnesium (1.6-2.3) mg/dL AST (17-59) U/L Total Creatine Kinase (55-170) U/L CK-MB (CK-2) (0.0-2.4) ng/mL Troponin I 31.000 H* (0.000-0.034) ng/mL Total Protein (6.3-8.2) g/dL Albumin (3.5-5.0) g/dL Crossmatch Microbiology - Last 24 Hours (Table) 03/23/19 18:07 Blood Culture - Preliminary Blood No Growth after 72 hours 03/26/19 02:23 Gram Stain - Preliminary Sputum Sputum Culture - Preliminary Assessment and Plan Assessment: 1-patient was initially admitted hospital with abdominal pain from significant decrease in size of his lymphadenopathy with concern for possible compression of the intestine with component of ischemic colitis versus diverticulitis 2-patient of a significant change in his clinical condition with acute respiratory failure when dependent requiring resuscitation with a possible component of aspiration pneumonitis Plan: 1-sputum for Gram stain and culture 2-blood culture will be repeated 3-vancomycin pharmacy to dose target trough of 15 has been added to his antibiotic regime 4-cefepime and Flagyl continued Overall prognosis guarded family at the bedside their questions were answered Time with Patient: Less than 30
[2019-03-27] MEDS: PROPOFOL 1,000 MG in EMPTY BAG 1 BAG IV SCH ×6 (00:45→21:58)
[2019-03-27] MEDS: VANCOMYCIN 1,500 MG in SODIUM CHLORIDE 0.9% 250 ML IVPB SCH ×2 (02:12→17:02)
[2019-03-27] MEDS: IPRATROPIUM-ALBUTEROL 3 ML NEB INHALATION SCH ×6 (02:50→23:19)
[2019-03-27] MEDS: ACETAMINOPHEN TAB 325 MG TAB PO PRN (03:56)
[2019-03-27 04:03] LABS: ABG HCO3 17 mmol/L (21-25); ABG Oxygen Saturation 99.2 % (94-97); ABG PCO2 28 mmHg (35-45); ABG PH 7.39 (7.35-7.45); ABG PO2 147 mmHg (83-108); ABG TCO2 18 mmol/L (19-24)
[2019-03-27 04:21] LABS: Anisocytosis Slight; HCT 23.5 % (39.0-53.0); HGB 7.8 gm/dL (13.0-17.5); MCH 29.9 pg (25.0-35.0); MCHC 33.2 g/dL (31.0-37.0); MCV 89.9 fL (80.0-100.0); Mean Platelet Volume 7.2; Platelet Count 149 k/uL (150-450); Poikilocytosis Slight; RBC 2.62 m/uL (4.30-5.90); RDW 17.3 % (11.5-15.5)
[2019-03-27 04:23] LABS: WBC 82.3 k/uL (3.8-10.6)
[2019-03-27 04:37] LABS: Albumin 2.5 g/dL (3.5-5.0); Calcium 7.4 mg/dL (8.4-10.2); Phosphorus 2.4 mg/dL (2.5-4.5); Total Bilirubin 0.8 mg/dL (0.2-1.3); Total Protein 4.2 g/dL (6.3-8.2); Uric Acid 8.3 mg/dL (3.5-8.5)
[2019-03-27 04:46] LABS: Band Neutrophils % 1 %; Basophils # (M) 0.82 k/uL (0-0.2); Eosinophils # (M) 0.82 k/uL (0-0.7); Lymphocytes # (M) 73.25 k/uL (1.0-4.8); Neutrophils % (M) 9 %; Nucleated Red Blood Cells 0 /100 WBC (0-0); Total Cells Counted 200
[2019-03-27 04:48] LABS: Polychromasia Present
[2019-03-27 05:39] LABS: Glucose,Whole Blood 126 mg/dL (75-99)
[2019-03-27 07:51] LABS: ABG PH 7.15 (7.35-7.45)
--- NOTE | 2019-03-27 08:30 | XR ---
EXAMINATION TYPE: XR chest 1V portable DATE OF EXAM: 03/27/2019 COMPARISON: 03/26/2019 INDICATION: Tube placement TECHNIQUE: Single frontal view of the chest is obtained. FINDINGS: The heart size is mildly prominent. The pulmonary vasculature is normal. Small right pleural effusion is present. Some mild infiltrate may be present at the left base. Minima l left pleural effusion is not excluded. There is an endotracheal tube with the tip 1.6 cm above the pavel. This could be pulled back slightl y from this position. Nasogastric tube transverses the thorax the tip in the left upper quadrant of t he abdomen. Left central venous catheter is tip within the right atrium. EKG leads overlie the chest. IMPRESSION: 1. Low-lying endotracheal tube with the tip 1.6 cm above the pavel. This could be pulled back slight ly from current position. 2. Additional lines and catheters discussed above. 3. Bibasilar infiltrates with small pleural effusions, stable. 4. Mild cardiomegaly.
--- NOTE | 2019-03-27 08:33 | PN ---
PROGRESS NOTE Mr. Lee is an 78-year-old male with a history of paroxysmal atrial fibrillation, history of lymphoma who presented with abdominal discomfort and was found to have severe anemia. Subsequently became dyspneic, hypotensive requiring mechanical ventilation. He is on pressor, intubated. Yesterday he went into atrial fibrillation, was started on IV amiodarone drip. He continues to be on norepinephrine as well as the IV amiodarone. He had lab data that was consistent with myocardial infarction with a peak troponin in the 30s. He had an echocardiogram revealed ejection fraction 35% to 40% with segmental wall motion abnormality consistent with anterior wall myocardial infarction. He continues to be at this time on IV amiodarone, aspirin 81 mg daily, Lipitor 20 mg daily, insulin, metoprolol tartrate 12.5 mg twice a day. PHYSICAL EXAMINATION: Blood pressure 94/50 with a heart rate in the one teens. LUNGS: Clear anteriorly. HEART: Irregular, irregular. S1, S2. No S3. No rub. ABDOMEN: Soft. Positive bowel sounds. EXTREMITIES: No edema. LAB DATA: Lab data revealed a white blood cell of 82.3, hemoglobin of 7.8, platelet count 149. BUN and creatinine 33 and 1.09. Troponin of 31. IMPRESSION: 1. Respiratory failure requiring mechanical ventilation. 2. Abdominal pain with mass with a history of chronic lymphocytic leukemia. 3. Severe anemia. 4. Atrial fibrillation, recurrent. 5. Myocardial infarction, acute. 6. Probable sepsis in an immunocompromised patient. 7. Ischemic cardiomyopathy. RECOMMENDATION: I have discussed the findings in detail with the family. Unfortunately, the prognosis remains quite poor. We will await further input from oncology service and critical care service. From the cardiac standpoint, we will continue supportive care at this point. MMODL / IJN: [id number] /
[2019-03-27] MEDS ORDERED: SODIUM CHLORIDE 0.9% 1,000 ML IV ONE ×2 (08:37→09:00)
[2019-03-27] MEDS: CHLORHEXIDINE GLUCONATE 15 ML CUP MUCOUS MEM SCH ×2 (09:46→20:42)
[2019-03-27] MEDS: ASPIRIN 81 MG PO SCH (09:46)
[2019-03-27] MEDS: ENOXAPARIN 40 MG/0.4 ML SYRINGE SQ SCH (09:46)
[2019-03-27] MEDS: METOPROLOL TARTRATE 12.5 MG TAB PO SCH ×2 (09:47→20:42)
[2019-03-27] MEDS: metroNIDAZOLE 500 MG TAB PO SCH ×3 (09:49→23:27)
[2019-03-27] MEDS: CEFEPIME 2 GM in SODIUM CHLORIDE 0.9% 100 ML IVPB SCH ×2 (09:49→22:21)
[2019-03-27] MEDS: SODIUM CHLORIDE 0.9% 1,000 ML IV SCH (10:00)
--- NOTE | 2019-03-27 11:34 | P.PN ---
Subjective Progress Note Date: 03/27/19 Principal diagnosis: Cardiopulmonary arrest, acute [place], Enlarging abdominal mass Patient is sedated and mechanically ventilated, no acute distress noted. 4 family members at the bedside Objective - Vital Signs Vital signs: Vital Signs Temp 99.1 F 03/27/19 08:00 Pulse 99 03/27/19 09:00 Resp 20 03/27/19 09:00 BP 95/58 03/27/19 09:00 Pulse Ox 98 03/27/19 09:00 Intake & Output 03/26/19 03/27/19 03/27/19 18:59 06:59 18:59 Intake Total 2268.195 2500.401 1923.381 Output Total 1575 600 630 Balance 476.636 9740.401 1293.381 Weight 88.8 kg Intake: IV 66 18 Pressure bags 0.9 66 18 Intake, IV Titration 2148.195 2434.401 1905.381 Amount Amiodarone 300 mg In 250 Dextrose 5% in Water 250 ml @ 0.5 MG/MIN 25 mls/hr IV .Q10H [facility] Rx#: [id number] Amiodarone 360 mg In 33.3 Dextrose 5% in Water 200 ml @ 1 MG/MIN 33.333 mls/ hr IV .Q6H [facility] Rx#: [id number] Cefepime 2 gm In Sodium 100 100 Chloride 0.9% 100 ml @ 200 mls/hr IVPB Q12H [facility] Rx#:[id number] Dextrose 5% in Water 100 100 ml @ 618 mls/hr IV .Q10M [facility] with Amiodarone 150 mg Rx#:[id number] Norepinephrine 4 mg In 309.036 732.151 302.545 Sodium Chloride 0.9% 250 ml @ 0.05 MCG/KG/MIN 15. 122 mls/hr IV .[id number] [facility] Rx#:[id number] Propofol 1,000 mg In 255.859 327.250 52.836 Empty Bag 1 bag @ Titrate IV .Q0M [facility] Rx#: [id number] Sodium Chloride 0.9% 1, 1100 1025 300 000 ml @ 100 mls/hr IV . Q10H [facility] Rx#:[id number] Sodium Chloride 0.9% 1, 1000 000 ml @ 999 mls/hr IV . Q1H1M [facility] Rx#:[id number] Vancomycin 1,500 mg In 250 250 Sodium Chloride 0.9% 250 ml @ 125 mls/hr IVPB Q16H [facility] Rx#:[id number] Other 120 Output: Gastric Drainage 800 450 Urine 775 600 180 Other: Voiding Method Indwelling Catheter Indwelling Catheter ABP, PAP, CO, CI - Last Documented Arterial Blood Pressure 106/54 - Constitutional General appearance: Present: average body habitus - Respiratory Respiratory: bilateral: CTA - Cardiovascular Heart sounds: normal: S1, S2 Abnormal Heart Sounds: Present: systolic murmur - Peripheral edema leg Peripheral Edema: bilateral: 1+ - Gastrointestinal General gastrointestinal: Present: distended, soft - Integumentary Integumentary Comment(s): Multiple bruises on the bilateral forearms in known areas of needlestick Integumentary: Present: pale - Psychiatric Psychiatric: Absent: A&O x's 3, appropriate affect, intact judgment & insight - Labs CBC & Chem 7: 03/27/19 04:10 03/27/19 04:10 Labs: Abnormal Lab Results - Last 24 Hours (Table) 03/25/19 03/26/19 03/26/19 Range/Units 12:11 02:16 11:48 WBC (3.8-10.6) k/uL RBC (4.30-5.90) m/uL Hgb (13.0-17.5) gm/dL Hct (39.0-53.0) % RDW (11.5-15.5) % Plt Count (150-450) k/uL Neutrophils # (Manual) (1.3-7.7) k/uL Lymphocytes # (Manual) (1.0-4.8) k/uL Eosinophils # (Manual) (0-0.7) k/uL Basophils # (Manual) (0-0.2) k/uL Haptoglobin 295.0 H (31.2-198.0) mg/dL ABG pH 7.15 L* (7.35-7.45) ABG pCO2 (35-45) mmHg ABG pO2 (83-108) mmHg ABG HCO3 (21-25) mmol/L ABG Total CO2 (19-24) mmol/L ABG O2 Saturation (94-97) % Chloride (98-107) mmol/L Carbon Dioxide (22-30) mmol/L BUN (9-20) mg/dL Glucose (74-99) mg/dL POC Glucose (mg/dL) 112 H (75-99) mg/dL Calcium (8.4-10.2) mg/dL Phosphorus (2.5-4.5) mg/dL Magnesium (1.6-2.3) mg/dL AST (17-59) U/L Total Creatine Kinase (55-170) U/L CK-MB (CK-2) (0.0-2.4) ng/mL Troponin I (0.000-0.034) ng/mL Total Protein (6.3-8.2) g/dL Albumin (3.5-5.0) g/dL 03/26/19 03/26/19 03/26/19 Range/Units 15:49 17:29 17:30 WBC (3.8-10.6) k/uL RBC (4.30-5.90) m/uL Hgb (13.0-17.5) gm/dL Hct (39.0-53.0) % RDW (11.5-15.5) % Plt Count (150-450) k/uL Neutrophils # (Manual) (1.3-7.7) k/uL Lymphocytes # (Manual) (1.0-4.8) k/uL Eosinophils # (Manual) (0-0.7) k/uL Basophils # (Manual) (0-0.2) k/uL Haptoglobin (31.2-198.0) mg/dL ABG pH (7.35-7.45) ABG pCO2 (35-45) mmHg ABG pO2 (83-108) mmHg ABG HCO3 (21-25) mmol/L ABG Total CO2 (19-24) mmol/L ABG O2 Saturation (94-97) % Chloride (98-107) mmol/L Carbon Dioxide (22-30) mmol/L BUN (9-20) mg/dL Glucose (74-99) mg/dL POC Glucose (mg/dL) 107 H (75-99) mg/dL Calcium (8.4-10.2) mg/dL Phosphorus (2.5-4.5) mg/dL Magnesium (1.6-2.3) mg/dL AST (17-59) U/L Total Creatine Kinase 720 H (55-170) U/L CK-MB (CK-2) 102.0 H (0.0-2.4) ng/mL Troponin I 31.000 H* (0.000-0.034) ng/mL Total Protein (6.3-8.2) g/dL Albumin (3.5-5.0) g/dL 03/27/19 03/27/19 03/27/19 Range/Units 00:20 04:02 04:10 WBC 82.3 H* (3.8-10.6) k/uL RBC 2.62 L (4.30-5.90) m/uL Hgb 7.8 L (13.0-17.5) gm/dL Hct 23.5 L (39.0-53.0) % RDW 17.3 H (11.5-15.5) % Plt Count 149 L (150-450) k/uL Neutrophils # (Manual) 8.20 H (1.3-7.7) k/uL Lymphocytes # (Manual) 73.25 H (1.0-4.8) k/uL Eosinophils # (Manual) 0.82 H (0-0.7) k/uL Basophils # (Manual) 0.82 H (0-0.2) k/uL Haptoglobin (31.2-198.0) mg/dL ABG pH (7.35-7.45) ABG pCO2 28 L (35-45) mmHg ABG pO2 147 H (83-108) mmHg ABG HCO3 17 L (21-25) mmol/L ABG Total CO2 18 L (19-24) mmol/L ABG O2 Saturation 99.2 H (94-97) % Chloride (98-107) mmol/L Carbon Dioxide (22-30) mmol/L BUN (9-20) mg/dL Glucose (74-99) mg/dL POC Glucose (mg/dL) 133 H (75-99) mg/dL Calcium (8.4-10.2) mg/dL Phosphorus (2.5-4.5) mg/dL Magnesium (1.6-2.3) mg/dL AST (17-59) U/L Total Creatine Kinase (55-170) U/L CK-MB (CK-2) (0.0-2.4) ng/mL Troponin I (0.000-0.034) ng/mL Total Protein (6.3-8.2) g/dL Albumin (3.5-5.0) g/dL 03/27/19 03/27/19 03/27/19 Range/Units 04:10 04:10 05:26 WBC (3.8-10.6) k/uL RBC (4.30-5.90) m/uL Hgb (13.0-17.5) gm/dL Hct (39.0-53.0) % RDW (11.5-15.5) % Plt Count (150-450) k/uL Neutrophils # (Manual) (1.3-7.7) k/uL Lymphocytes # (Manual) (1.0-4.8) k/uL Eosinophils # (Manual) (0-0.7) k/uL Basophils # (Manual) (0-0.2) k/uL Haptoglobin (31.2-198.0) mg/dL ABG pH (7.35-7.45) ABG pCO2 (35-45) mmHg ABG pO2 (83-108) mmHg ABG HCO3 (21-25) mmol/L ABG Total CO2 (19-24) mmol/L ABG O2 Saturation (94-97) % Chloride 116 H (98-107) mmol/L Carbon Dioxide 18 L (22-30) mmol/L BUN 33 H (9-20) mg/dL Glucose 122 H (74-99) mg/dL POC Glucose (mg/dL) 126 H (75-99) mg/dL Calcium 7.4 L (8.4-10.2) mg/dL Phosphorus 2.4 L (2.5-4.5) mg/dL Magnesium 2.6 H (1.6-2.3) mg/dL AST 106 H (17-59) U/L Total Creatine Kinase (55-170) U/L CK-MB (CK-2) (0.0-2.4) ng/mL Troponin I (0.000-0.034) ng/mL Total Protein 4.2 L (6.3-8.2) g/dL Albumin 2.5 L (3.5-5.0) g/dL Microbiology - Last 24 Hours (Table) 03/23/19 18:07 Blood Culture - Preliminary Blood No Growth after 72 hours 03/26/19 02:23 Gram Stain - Preliminary Sputum Sputum Culture - Preliminary - Imaging and Cardiology Chest x-ray: report reviewed Assessment and Plan (1) Acute non-ST elevation myocardial infarction (NSTEMI) Narrative/Plan: Medical management per Cardiology Current Visit: Yes Status: Acute Priority: High Code(s): I21.4 - NON-ST ELEVATION (NSTEMI) MYOCARDIAL INFARCTION SNOMED Code(s): 284448469 (2) Elevated troponin Current Visit: Yes Status: Acute Priority: High Code(s): R79.89 - OTHER SPECIFIED ABNORMAL FINDINGS OF BLOOD CHEMISTRY SNOMED Code(s): 609372393 (3) Leukocytosis Narrative/Plan: Abdominal mass/adenopathy is a process 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 He has received multiple treatments in the past for recurrence. The abdomen tends to be where his disease recurs. Prior to initiation of treatment a core biopsy would be necessary to determine what disease we will be treating as he has had treatment for different leukemias. Current Visit: Yes Status: Acute Priority: Medium Code(s): D72.829 - ELEVATED WHITE BLOOD CELL COUNT, UNSPECIFIED SNOMED Code(s): 044490239 Plan: Dr. Hernandez discussed with patient's family his very guarded situation. After chart was reviewed it was felt that it is reasonable, as of today, to continue to treat patient aggressively. It will be determined by the Critical Care team if and when patient could be weaned off of the ventilator. If patient status is not such that he cannot be removed from cardiopulmonary support then patient's family does verbalize understanding that a comfort only approach will be appropriate. Only if patient is able to be weaned would we be able to even begin to consider workup and treatment for the abdominal mass/suspect leukemia. Doctor attests: I performed a history and physical examination of this patient with dictator. I have developed impression and plan, I agree with dictators note, documented as a scribe.
[2019-03-27 12:30] LABS: Glucose,Whole Blood 129 mg/dL (75-99)
--- NOTE | 2019-03-27 14:10 | P.PN ---
Subjective Progress Note Date: 03/27/19 On today's evaluation of 03/27/2019 I'm seeing this patient for a follow-up. The patient is currently intubated on a mechanical ventilator. The patient is known history of CLL receiving FOLFOX treatment on outpatient basis.. The patient came in for increased abdominal pain and subsequently the patient went into respiratory failure and hemodynamic collapse. The patient suffered an acute non-ST segment elevation myocardial infarction and troponin peaked at 31. Cardiology is on the case This morning, the patient was sedated with propofol at 50 g per KG per minute. The patient is intubated on a mechanical ventilator. Earlier this morning the patient was on a volume cycle mode of ventilation with a tidal volume of 450 with a rate of 20, FiO2 of 40% and a PEEP of 5. The patient is intubated with a #8 ET tube. The blood gases from this morning showed a pH of 7.39 with a pCO2 of 28 and pO2 of 147. The patient was still having higher tidal volumes and is minute ventilation was quite elevated. Based on all this, I increased his tidal volume of 2 600 which made the patient much more comfortable and sickness with a mechanical ventilator. The patient is afebrile. The patient is hypotensive and earlier this morning he was on norepinephrine infusion running at a rate of 21 mcg/m. His urine output is in order of 60 mL an hour. The patient is on IV fluids at 0.9 at the rate of 100 mL an hour. The patient is in atrial fibrillation. He is on an amiodarone drip at 0.5 g per minute as a maintenance. He has a left IJ triple-lumen catheter and the CVP is in the range of 8 and 9 mmHg. The patient had a chest x-ray this morning that showed bilateral basilar infiltrates and bilateral pleural effusions are small. The patient also had some mild cardiomegaly. ET tube was lying low with a tip being around 1. 6 cm above the pavel. The patient remains nothing by mouth. He remains well covered with a combination of cefepime and Flagyl and vancomycin as broad-spectrum antibiotic coverage. Urine culture from 2018 has been negative. Sputum culture from 03/26/2019 is negative and the blood culture from 516 has been negative and the repeat blood culture was sent on 03/27/2019. Hematologic profile was quite abnormal and then consistent with the patient's history of CLL. Hemoglobin is at 7.3 with a platelet count of 149 and a white cell count of 82.3. Anything else no abdominal distention. OG tube is in place and there is no significant drainage from the orogastric tube. Echocardiogram showed segmental wall motion abnormalities along with an ejection fraction of 35-40%. Objective - Vital Signs Vital signs: Vital Signs Temp 99.1 F 03/27/19 08:00 Pulse 104 H 03/27/19 12:09 Resp 20 03/27/19 09:00 BP 95/58 03/27/19 09:00 Pulse Ox 98 03/27/19 09:00 Intake & Output 03/26/19 03/27/19 03/27/19 18:59 06:59 18:59 Intake Total 2268.195 2500.401 2023.381 Output Total 1575 600 630 Balance 707.027 1439.401 1393.381 Weight 88.8 kg Intake: IV 66 18 Pressure bags 0.9 66 18 Intake, IV Titration 2148.195 2434.401 2005.381 Amount Amiodarone 300 mg In 250 Dextrose 5% in Water 250 ml @ 0.5 MG/MIN 25 mls/hr IV .Q10H [facility] Rx#: [id number] Amiodarone 360 mg In 33.3 Dextrose 5% in Water 200 ml @ 1 MG/MIN 33.333 mls/ hr IV .Q6H [facility] Rx#: [id number] Cefepime 2 gm In Sodium 100 100 Chloride 0.9% 100 ml @ 200 mls/hr IVPB Q12H [facility] Rx#:[id number] Dextrose 5% in Water 100 100 ml @ 618 mls/hr IV .Q10M [facility] with Amiodarone 150 mg Rx#:[id number] Norepinephrine 4 mg In 309.036 732.151 302.545 Sodium Chloride 0.9% 250 ml @ 0.05 MCG/KG/MIN 15. 122 mls/hr IV .Q38S61W [facility] Rx#:[id number] Propofol 1,000 mg In 255.859 327.250 152.836 Empty Bag 1 bag @ Titrate IV .Q0M [facility] Rx#: [id number] Sodium Chloride 0.9% 1, 1100 1025 300 000 ml @ 100 mls/hr IV . Q10H [facility] Rx#:[id number] Sodium Chloride 0.9% 1, 1000 000 ml @ 999 mls/hr IV . Q1H1M [facility] Rx#:[id number] Vancomycin 1,500 mg In 250 250 Sodium Chloride 0.9% 250 ml @ 125 mls/hr IVPB Q16H [facility] Rx#:[id number] Other 120 Output: Gastric Drainage 800 450 Urine 775 600 180 Other: Voiding Method Indwelling Catheter Indwelling Catheter ABP, PAP, CO, CI - Last Documented Arterial Blood Pressure 106/54 - Exam Gen. appearance, comfortable sedated intubated on a mechanical ventilator and the patient is synchronous with the mechanical ventilation. Head exam was generally normal. There was no scleral icterus or corneal arcus. Mucous membranes were moist. Neck was supple and without jugular venous distension, thyromegaly, or carotid bruits. Carotids were easily palpable bilaterally. There was no adenopathy. The patient has an orogastric and orotracheal tube are both of them are in place and the patient has a left IJ triple-lumen catheter. Lungs sounds are diminished bilaterally. Breath sounds are otherwise equal and symmetrical. Heart sounds are irregular S1-S2 consistent with atrial fibrillation. No significant murmurs appreciated. No right ventricular heave or thrill. Abdominal exam revealed normal bowel sounds. The abdomen was soft, non-tender, and without masses, organomegaly, or appreciable enlargement of the abdominal aorta. Extremities are warm. There is equal and symmetrical pulses in lower extremities bilaterally with +1 pulses. No cyanosis. No clubbing. Neurologically the patient is sedated, comfortable. Synchronous with the mechanical ventilator. Pupils are equal and reactive to light. No facial asymmetry. No seizure activity has been noted. Examination of the skin revealed no evidence of significant rashes, suspicious appearing nevi or other concerning lesions. - Labs CBC & Chem 7: 03/27/19 04:10 03/27/19 04:10 Labs: Abnormal Lab Results - Last 24 Hours (Table) 03/25/19 03/26/19 03/26/19 Range/Units 12:11 02:16 15:49 WBC (3.8-10.6) k/uL RBC (4.30-5.90) m/uL Hgb (13.0-17.5) gm/dL Hct (39.0-53.0) % RDW (11.5-15.5) % Plt Count (150-450) k/uL Neutrophils # (Manual) (1.3-7.7) k/uL Lymphocytes # (Manual) (1.0-4.8) k/uL Eosinophils # (Manual) (0-0.7) k/uL Basophils # (Manual) (0-0.2) k/uL Haptoglobin 295.0 H (31.2-198.0) mg/dL ABG pH 7.15 L* (7.35-7.45) ABG pCO2 (35-45) mmHg ABG pO2 (83-108) mmHg ABG HCO3 (21-25) mmol/L ABG Total CO2 (19-24) mmol/L ABG O2 Saturation (94-97) % Chloride (98-107) mmol/L Carbon Dioxide (22-30) mmol/L BUN (9-20) mg/dL Glucose (74-99) mg/dL POC Glucose (mg/dL) (75-99) mg/dL Calcium (8.4-10.2) mg/dL Phosphorus (2.5-4.5) mg/dL Magnesium (1.6-2.3) mg/dL AST (17-59) U/L Total Creatine Kinase 720 H (55-170) U/L CK-MB (CK-2) 102.0 H (0.0-2.4) ng/mL Troponin I (0.000-0.034) ng/mL Total Protein (6.3-8.2) g/dL Albumin (3.5-5.0) g/dL 03/26/19 03/26/19 03/27/19 Range/Units 17:29 17:30 00:20 WBC (3.8-10.6) k/uL RBC (4.30-5.90) m/uL Hgb (13.0-17.5) gm/dL Hct (39.0-53.0) % RDW (11.5-15.5) % Plt Count (150-450) k/uL Neutrophils # (Manual) (1.3-7.7) k/uL Lymphocytes # (Manual) (1.0-4.8) k/uL Eosinophils # (Manual) (0-0.7) k/uL Basophils # (Manual) (0-0.2) k/uL Haptoglobin (31.2-198.0) mg/dL ABG pH (7.35-7.45) ABG pCO2 (35-45) mmHg ABG pO2 (83-108) mmHg ABG HCO3 (21-25) mmol/L ABG Total CO2 (19-24) mmol/L ABG O2 Saturation (94-97) % Chloride (98-107) mmol/L Carbon Dioxide (22-30) mmol/L BUN (9-20) mg/dL Glucose (74-99) mg/dL POC Glucose (mg/dL) 107 H 133 H (75-99) mg/dL Calcium (8.4-10.2) mg/dL Phosphorus (2.5-4.5) mg/dL Magnesium (1.6-2.3) mg/dL AST (17-59) U/L Total Creatine Kinase (55-170) U/L CK-MB (CK-2) (0.0-2.4) ng/mL Troponin I 31.000 H* (0.000-0.034) ng/mL Total Protein (6.3-8.2) g/dL Albumin (3.5-5.0) g/dL 03/27/19 03/27/19 03/27/19 Range/Units 04:02 04:10 04:10 WBC 82.3 H* (3.8-10.6) k/uL RBC 2.62 L (4.30-5.90) m/uL Hgb 7.8 L (13.0-17.5) gm/dL Hct 23.5 L (39.0-53.0) % RDW 17.3 H (11.5-15.5) % Plt Count 149 L (150-450) k/uL Neutrophils # (Manual) 8.20 H (1.3-7.7) k/uL Lymphocytes # (Manual) 73.25 H (1.0-4.8) k/uL Eosinophils # (Manual) 0.82 H (0-0.7) k/uL Basophils # (Manual) 0.82 H (0-0.2) k/uL Haptoglobin (31.2-198.0) mg/dL ABG pH (7.35-7.45) ABG pCO2 28 L (35-45) mmHg ABG pO2 147 H (83-108) mmHg ABG HCO3 17 L (21-25) mmol/L ABG Total CO2 18 L (19-24) mmol/L ABG O2 Saturation 99.2 H (94-97) % Chloride 116 H (98-107) mmol/L Carbon Dioxide 18 L (22-30) mmol/L BUN 33 H (9-20) mg/dL Glucose 122 H (74-99) mg/dL POC Glucose (mg/dL) (75-99) mg/dL Calcium 7.4 L (8.4-10.2) mg/dL Phosphorus 2.4 L (2.5-4.5) mg/dL Magnesium (1.6-2.3) mg/dL AST 106 H (17-59) U/L Total Creatine Kinase (55-170) U/L CK-MB (CK-2) (0.0-2.4) ng/mL Troponin I (0.000-0.034) ng/mL Total Protein 4.2 L (6.3-8.2) g/dL Albumin 2.5 L (3.5-5.0) g/dL 03/27/19 03/27/19 03/27/19 Range/Units 04:10 05:26 12:18 WBC (3.8-10.6) k/uL RBC (4.30-5.90) m/uL Hgb (13.0-17.5) gm/dL Hct (39.0-53.0) % RDW (11.5-15.5) % Plt Count (150-450) k/uL Neutrophils # (Manual) (1.3-7.7) k/uL Lymphocytes # (Manual) (1.0-4.8) k/uL Eosinophils # (Manual) (0-0.7) k/uL Basophils # (Manual) (0-0.2) k/uL Haptoglobin (31.2-198.0) mg/dL ABG pH (7.35-7.45) ABG pCO2 (35-45) mmHg ABG pO2 (83-108) mmHg ABG HCO3 (21-25) mmol/L ABG Total CO2 (19-24) mmol/L ABG O2 Saturation (94-97) % Chloride (98-107) mmol/L Carbon Dioxide (22-30) mmol/L BUN (9-20) mg/dL Glucose (74-99) mg/dL POC Glucose (mg/dL) 126 H 129 H (75-99) mg/dL Calcium (8.4-10.2) mg/dL Phosphorus (2.5-4.5) mg/dL Magnesium 2.6 H (1.6-2.3) mg/dL AST (17-59) U/L Total Creatine Kinase (55-170) U/L CK-MB (CK-2) (0.0-2.4) ng/mL Troponin I (0.000-0.034) ng/mL Total Protein (6.3-8.2) g/dL Albumin (3.5-5.0) g/dL Microbiology - Last 24 Hours (Table) 03/23/19 18:07 Blood Culture - Preliminary Blood No Growth after 72 hours 03/26/19 02:23 Gram Stain - Preliminary Sputum Sputum Culture - Preliminary Assessment and Plan Plan: 1 shock with profound hypotension currently on pressors. The patient had a acute non-ST segment elevation myocardial infarction. The patient could be also potentially septic and this shock could be a combination of cardiac and septic in nature. The patient's CVP is low. The patient will be resuscitated IV fluids and the patient will be given further fluids and pressors. 2 acute hypoxic respiratory failure currently intubated on mechanical ventilator. 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 5 chronic atrial fibrillation currently on amiodarone drip for rate control at a maintenance of 0.5 mg per minute 6 history of chronic lymphocytic leukemia with significant enlargement of the intra-abdominal lymphadenopathy causing some mass effect in the abdominal structures including the bowel and the kidneys 7 hematologic abnormalities with an abnormal hematologic profile consistent with CLL. 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 Increase the tidal volume to 600 as the patient's minute ventilation requirement is quite high. This made the patient much more success with the mechanical ventilator. Give the patient bolus of IV fluids 1 L. Monitor CVP. Wean off pressors if possible. Wean off sedation if possible. Keep the patient's sickness with a mechanical ventilator. Continue the same antibiotic coverage which included a combination of cefepime and Flagyl and vancomycin. Awaiting blood culture. Awaiting results of the sputum culture. Echocardiogram was noted. Continue the amiodarone maintenance. No acute feeding for now as the patient has difficulties in tolerating oral intake related to intra-abdominal lymphadenopathy. We'll continue to follow make further recommendations based on the patient's progress. Condition is critical. Prognosis poor based on his underlying malignancy, and base other comorbidities at all mentioned above. This induration was on a more than 30 minutes. The family was updated on his condition. Time with Patient: Greater than 30
--- NOTE | 2019-03-27 16:08 | P.PN ---
Subjective Progress Note Date: 03/27/19 Principal diagnosis: Non-ST elevation TX, acute hypoxic respiratory failure Patient was seen and examined. No acute events overnight. Discussed with family at bedside, plans to wait a couple days to gauge improvement. If there is no improvement, family agreeable for comfort care or hospice. Currently sedated with propofol at 45 mics per kilo per minute. Intubated, tidal volume 450, rate 20, FiO2 40 and PEEP of 5. Chest x-ray this morning shows bibasilar infiltrates with small pleural effusion. Objective - Vital Signs Vital signs: Vital Signs Temp 99.1 F 03/27/19 08:00 Pulse 114 H 03/27/19 15:19 Resp 21 03/27/19 15:19 BP 95/58 03/27/19 09:00 Pulse Ox 98 03/27/19 09:00 Intake & Output 03/26/19 03/27/19 03/27/19 18:59 06:59 18:59 Intake Total 2268.195 2500.401 2023.381 Output Total 1575 600 630 Balance 263.456 6390.401 1393.381 Weight 88.8 kg Intake: IV 66 18 Pressure bags 0.9 66 18 Intake, IV Titration 2148.195 2434.401 2005.381 Amount Amiodarone 300 mg In 250 Dextrose 5% in Water 250 ml @ 0.5 MG/MIN 25 mls/hr IV .Q10H [facility] Rx#: [id number] Amiodarone 360 mg In 33.3 Dextrose 5% in Water 200 ml @ 1 MG/MIN 33.333 mls/ hr IV .Q6H [facility] Rx#: [id number] Cefepime 2 gm In Sodium 100 100 Chloride 0.9% 100 ml @ 200 mls/hr IVPB Q12H [facility] Rx#:[id number] Dextrose 5% in Water 100 100 ml @ 618 mls/hr IV .Q10M [facility] with Amiodarone 150 mg Rx#:[id number] Norepinephrine 4 mg In 309.036 732.151 302.545 Sodium Chloride 0.9% 250 ml @ 0.05 MCG/KG/MIN 15. 122 mls/hr IV .[id number] [facility] Rx#:[id number] Propofol 1,000 mg In 255.859 327.250 152.836 Empty Bag 1 bag @ Titrate IV .Q0M [facility] Rx#: [id number] Sodium Chloride 0.9% 1, 1100 1025 300 000 ml @ 100 mls/hr IV . Q10H [facility] Rx#:[id number] Sodium Chloride 0.9% 1, 1000 000 ml @ 999 mls/hr IV . Q1H1M [facility] Rx#:[id number] Vancomycin 1,500 mg In 250 250 Sodium Chloride 0.9% 250 ml @ 125 mls/hr IVPB Q16H [facility] Rx#:[id number] Other 120 Output: Gastric Drainage 800 450 Urine 775 600 180 Other: Voiding Method Indwelling Catheter Indwelling Catheter ABP, PAP, CO, CI - Last Documented Arterial Blood Pressure 106/54 - Exam General: [non toxic], [intubated], [appears at stated age] Derm: [warm], [dry] Head: [atraumatic], [normocephalic], [symmetric] Eyes: [no lid lag], [anicteric sclera] Mouth: [no lip lesion], [mucus membranes moist] Cardiovascular: [S1S2 reg], [tachycardia], [positive DP pulse bilateral] Lungs: [Decreased breath sounds bilateral], [no rhonchi, no rales] , [no accessory muscle use] Abdominal: [soft], [no guarding], [no appreciable organomegaly] Ext: [no gross muscle atrophy], [no edema], [no contractures] - Labs CBC & Chem 7: 03/27/19 04:10 03/27/19 04:10 Labs: Abnormal Lab Results - Last 24 Hours (Table) 03/25/19 03/26/19 03/26/19 Range/Units 12:11 02:16 15:49 WBC (3.8-10.6) k/uL RBC (4.30-5.90) m/uL Hgb (13.0-17.5) gm/dL Hct (39.0-53.0) % RDW (11.5-15.5) % Plt Count (150-450) k/uL Neutrophils # (Manual) (1.3-7.7) k/uL Lymphocytes # (Manual) (1.0-4.8) k/uL Eosinophils # (Manual) (0-0.7) k/uL Basophils # (Manual) (0-0.2) k/uL Haptoglobin 295.0 H (31.2-198.0) mg/dL ABG pH 7.15 L* (7.35-7.45) ABG pCO2 (35-45) mmHg ABG pO2 (83-108) mmHg ABG HCO3 (21-25) mmol/L ABG Total CO2 (19-24) mmol/L ABG O2 Saturation (94-97) % Chloride (98-107) mmol/L Carbon Dioxide (22-30) mmol/L BUN (9-20) mg/dL Glucose (74-99) mg/dL POC Glucose (mg/dL) (75-99) mg/dL Calcium (8.4-10.2) mg/dL Phosphorus (2.5-4.5) mg/dL Magnesium (1.6-2.3) mg/dL AST (17-59) U/L Total Creatine Kinase 720 H (55-170) U/L CK-MB (CK-2) 102.0 H (0.0-2.4) ng/mL Troponin I (0.000-0.034) ng/mL Total Protein (6.3-8.2) g/dL Albumin (3.5-5.0) g/dL 03/26/19 03/26/19 03/27/19 Range/Units 17:29 17:30 00:20 WBC (3.8-10.6) k/uL RBC (4.30-5.90) m/uL Hgb (13.0-17.5) gm/dL Hct (39.0-53.0) % RDW (11.5-15.5) % Plt Count (150-450) k/uL Neutrophils # (Manual) (1.3-7.7) k/uL Lymphocytes # (Manual) (1.0-4.8) k/uL Eosinophils # (Manual) (0-0.7) k/uL Basophils # (Manual) (0-0.2) k/uL Haptoglobin (31.2-198.0) mg/dL ABG pH (7.35-7.45) ABG pCO2 (35-45) mmHg ABG pO2 (83-108) mmHg ABG HCO3 (21-25) mmol/L ABG Total CO2 (19-24) mmol/L ABG O2 Saturation (94-97) % Chloride (98-107) mmol/L Carbon Dioxide (22-30) mmol/L BUN (9-20) mg/dL Glucose (74-99) mg/dL POC Glucose (mg/dL) 107 H 133 H (75-99) mg/dL Calcium (8.4-10.2) mg/dL Phosphorus (2.5-4.5) mg/dL Magnesium (1.6-2.3) mg/dL AST (17-59) U/L Total Creatine Kinase (55-170) U/L CK-MB (CK-2) (0.0-2.4) ng/mL Troponin I 31.000 H* (0.000-0.034) ng/mL Total Protein (6.3-8.2) g/dL Albumin (3.5-5.0) g/dL 03/27/19 03/27/19 03/27/19 Range/Units 04:02 04:10 04:10 WBC 82.3 H* (3.8-10.6) k/uL RBC 2.62 L (4.30-5.90) m/uL Hgb 7.8 L (13.0-17.5) gm/dL Hct 23.5 L (39.0-53.0) % RDW 17.3 H (11.5-15.5) % Plt Count 149 L (150-450) k/uL Neutrophils # (Manual) 8.20 H (1.3-7.7) k/uL Lymphocytes # (Manual) 73.25 H (1.0-4.8) k/uL Eosinophils # (Manual) 0.82 H (0-0.7) k/uL Basophils # (Manual) 0.82 H (0-0.2) k/uL Haptoglobin (31.2-198.0) mg/dL ABG pH (7.35-7.45) ABG pCO2 28 L (35-45) mmHg ABG pO2 147 H (83-108) mmHg ABG HCO3 17 L (21-25) mmol/L ABG Total CO2 18 L (19-24) mmol/L ABG O2 Saturation 99.2 H (94-97) % Chloride 116 H (98-107) mmol/L Carbon Dioxide 18 L (22-30) mmol/L BUN 33 H (9-20) mg/dL Glucose 122 H (74-99) mg/dL POC Glucose (mg/dL) (75-99) mg/dL Calcium 7.4 L (8.4-10.2) mg/dL Phosphorus 2.4 L (2.5-4.5) mg/dL Magnesium (1.6-2.3) mg/dL AST 106 H (17-59) U/L Total Creatine Kinase (55-170) U/L CK-MB (CK-2) (0.0-2.4) ng/mL Troponin I (0.000-0.034) ng/mL Total Protein 4.2 L (6.3-8.2) g/dL Albumin 2.5 L (3.5-5.0) g/dL 03/27/19 03/27/19 03/27/19 Range/Units 04:10 05:26 12:18 WBC (3.8-10.6) k/uL RBC (4.30-5.90) m/uL Hgb (13.0-17.5) gm/dL Hct (39.0-53.0) % RDW (11.5-15.5) % Plt Count (150-450) k/uL Neutrophils # (Manual) (1.3-7.7) k/uL Lymphocytes # (Manual) (1.0-4.8) k/uL Eosinophils # (Manual) (0-0.7) k/uL Basophils # (Manual) (0-0.2) k/uL Haptoglobin (31.2-198.0) mg/dL ABG pH (7.35-7.45) ABG pCO2 (35-45) mmHg ABG pO2 (83-108) mmHg ABG HCO3 (21-25) mmol/L ABG Total CO2 (19-24) mmol/L ABG O2 Saturation (94-97) % Chloride (98-107) mmol/L Carbon Dioxide (22-30) mmol/L BUN (9-20) mg/dL Glucose (74-99) mg/dL POC Glucose (mg/dL) 126 H 129 H (75-99) mg/dL Calcium (8.4-10.2) mg/dL Phosphorus (2.5-4.5) mg/dL Magnesium 2.6 H (1.6-2.3) mg/dL AST (17-59) U/L Total Creatine Kinase (55-170) U/L CK-MB (CK-2) (0.0-2.4) ng/mL Troponin I (0.000-0.034) ng/mL Total Protein (6.3-8.2) g/dL Albumin (3.5-5.0) g/dL Microbiology - Last 24 Hours (Table) 03/23/19 18:07 Blood Culture - Preliminary Blood No Growth after 72 hours 03/26/19 02:23 Gram Stain - Preliminary Sputum Sputum Culture - Preliminary Assessment and Plan Assessment: Assessment and Plan Acute hypoxic respiratory failure likely secondary to pneumonia in immunocompromised patients Shock, cardiogenic due to non-ST elevation TX versus sepsis due to hospital- acquired pneumonia or possible intra-abdominal pathology Non-ST elevation TX Anemia Abdominal pain likely secondary to adenopathy seen on CT. CLL with leukocytosis of 64.4 Lactic acidosis History of CAD/CVA Hypertension Atrial fibrillation Hyperlipidemia CODE BLUE called for acute hypoxic respiratory failure, patient intubated. ABG showing respiratory alkalosis with nonanatomic gap metabolic acidosis. Likely secondary to hospital-acquired pneumonia. Plan: Full vent support as per pulmonology. Levophed to maintain MAP greater than 65. Continue IV antibiotics and treatment of pneumonia and possible intra-abdominal pathology. Follow cardiology for elevated troponins. Sepsis criteria (Leukocytosis of 64.4, BP as low as 82/48, tachycardic to 107, lactic acid of 2.6 with no clear source of infection on admission. Repeat lactic acid within normal limits. Urine culture negative. Blood culture negative at 72 hours.) Cardiogenic shock criteria (Low CVP, Troponin elevation from 3.650 to 31 indicating NSTEMI, Echocardiogram showing 35-40% with hypokinetic wall motion.) 03/27/2019 chest x-ray showing bibasilar infiltrates and small pleural effusions with mild cardiomegaly. Plan: Continue cefepime and Flagyl for possible intra- abdominal pathology. Vancomycin and levofloxacin added for coverage of Pseudomonas and MRSA. Tylenol as needed for fever. Continue normal saline at 100 mL per hour. Follow blood culture. Daily CBC. Follow ID consultation. IV pressors to maintain MAP > 65. Follow pulmonology and cardiology recommendations. Initial troponin less than 0.012. EKG ordered yesterday for concerns of tac hycardia, with ST depression, troponin reordered to rule out ACS. Repeat troponin 3.650, 8.210, 20.4, 31. Possibly related to true cardiac event from severe anemia and hypotension. Echocardiogram shows EF 35-40% with hypokinetic wall motion. Plan: Telemetry monitoring. Continue aspirin. As per Dr. Rajput, not candidate for aggressive cardiac workup. Follow cardiology recommendations. No heparin due to severe anemia. Hemoglobin 5.8 to 7.9-7.8 s/p 2 unit PRBC 03/26/2019. Normocytic. LDH 854, indicating hemolysis. Reticulocyte count 2.6, indicating hypo-proliferation. Plan: Daily CBC. Transfuse if hemoglobin less than 7. Possible steroids as per oncology. Follow oncology recommendations. CT shows retroperitoneal adenopathy which encases the aorta and renal arteries. UA negative for nitrite or leukocyte esterase. Amylase and lipase within normal limits. Oncology consulted, believes enlarged lymph node is likely due to acute illness. Plan: Zofran as needed for nausea and vomiting. Morphine, [place] or Toradol as needed for severe pain. Continue IV antibiotics. Follow oncology recommendations. Leukocytosis of 64.4-71.3-82.3. Previous diagnosis of CLL, taken care of by Dr. Hernandez. Oncology consulted, if patient doesn't improve with treatment of acute illness, plans for restaging and repeat biopsy. Plan: Daily CBC. Follow oncology recommendations. Lactic acid 2.6-3.7-1.4 likely secondary to dehydration but concerns for sepsis. Plan: Continue normal saline at 100 mL/h. Continue IV antibiotics. Resolved. 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 Plan: Continue aspirin and simvastatin. BP 93/62. Plan: Continue metoprolol. Monitor vitals, adjust medications as necessary. Currently rate controlled. Plan: Continue metoprolol. Continue Propafenone. Started on amiodarone drip. No anticoagulation due to severe anemia. K > 4 and Mg > 2. Follow cardiology recommendations. Lipid panel within normal limits except for HDL of and July 2016. Plan: Continue simvastatin. CODE BLUE 03/26/2019 for respiratory failure, intubated to protect airway, currently intubated with IV pressors. Troponins continue up trend, cardiology on board, no plans for aggressive intervention until stable. Patient admitted for abdominal pain, found to have retroperitoneal adenopathy, oncology consulted. Found to be hypotensive with elevated lactic acid, concerns for sepsis, started on broad-spectrum antibiotics, ID on consult. Found to have low hemoglobin, 2 PRBCs ordered 03/26/2019, hemoglobin stable since the. Prognosis is very guarded at this time. Plans to observe patient over the next 2 days, Comfort Care if no improvement. Discussed with family at bedside.
--- NOTE | 2019-03-27 17:21 | P.PN ---
Subjective Progress Note Date: 03/27/19 Principal diagnosis: Sepsis and possible aspiration pneumonia and diverticulitis Patient initially admitted hospital with abdominal pain in this patient did have significant increase in size of abdominal lymphadenopathy and possible component of diverticulitis patient was transferred to the ICU because of hypotension , morning of 03/26/2019 the patient did have significant change in his clinical condition and the patient ripped off his IV and leads subsequently did have sign ificant drop in the blood pressure and respiratory distress patient ended up getting intubated on 03/26/2019. On today's evaluation that is 03/27/2019, the patient is afebrile however the patient did spike a fever of 101F last night at which time blood culture were repeated, the patient FiO2 is currently stable however the patient still requiring pressor support to maintain his blood pressure no other changes reported by the nursing staff Objective - Vital Signs Vital signs: Vital Signs Temp 99.1 F 03/27/19 08:00 Pulse 104 H 03/27/19 12:09 Resp 20 03/27/19 09:00 BP 95/58 03/27/19 09:00 Pulse Ox 98 03/27/19 09:00 Intake & Output 03/26/19 03/27/19 03/27/19 18:59 06:59 18:59 Intake Total 2268.195 2500.401 1923.381 Output Total 1575 600 630 Balance 494.759 7275.401 1293.381 Weight 88.8 kg Intake: IV 66 18 Pressure bags 0.9 66 18 Intake, IV Titration 2148.195 2434.401 1905.381 Amount Amiodarone 300 mg In 250 Dextrose 5% in Water 250 ml @ 0.5 MG/MIN 25 mls/hr IV .Q10H [facility] Rx#: [id number] Amiodarone 360 mg In 33.3 Dextrose 5% in Water 200 ml @ 1 MG/MIN 33.333 mls/ hr IV .Q6H [facility] Rx#: [id number] Cefepime 2 gm In Sodium 100 100 Chloride 0.9% 100 ml @ 200 mls/hr IVPB Q12H [facility] Rx#:[id number] Dextrose 5% in Water 100 100 ml @ 618 mls/hr IV .Q10M [facility] with Amiodarone 150 mg Rx#:[id number] Norepinephrine 4 mg In 309.036 732.151 302.545 Sodium Chloride 0.9% 250 ml @ 0.05 MCG/KG/MIN 15. 122 mls/hr IV .[id number] [facility] Rx#:[id number] Propofol 1,000 mg In 255.859 327.250 52.836 Empty Bag 1 bag @ Titrate IV .Q0M [facility] Rx#: [id number] Sodium Chloride 0.9% 1, 1100 1025 300 000 ml @ 100 mls/hr IV . Q10H [facility] Rx#:[id number] Sodium Chloride 0.9% 1, 1000 000 ml @ 999 mls/hr IV . Q1H1M [facility] Rx#:[id number] Vancomycin 1,500 mg In 250 250 Sodium Chloride 0.9% 250 ml @ 125 mls/hr IVPB Q16H [facility] Rx#:[id number] Other 120 Output: Gastric Drainage 800 450 Urine 775 600 180 Other: Voiding Method Indwelling Catheter Indwelling Catheter ABP, PAP, CO, CI - Last Documented Arterial Blood Pressure 106/54 - Exam GENERAL DESCRIPTION: The patient currently intubated on the vent and sedated HEENT: [Oral mucosa is dry and patient is orally intubated] EYES : [pallor or scleral icterus] RESPIRATORY SYSTEM: [Unlabored breathing decreased breath sound at the base] CARDIA VASCULAR SYSTEM: [S1-S2 regular rate and rhythm no murmur] GI: [Abdominal soft there's no tenderness no organomegaly] EXTREMITIES: [No edema feet] - Labs CBC & Chem 7: 03/27/19 04:10 03/27/19 04:10 Labs: Abnormal Lab Results - Last 24 Hours (Table) 03/25/19 03/26/19 03/26/19 Range/Units 12:11 02:16 15:49 WBC (3.8-10.6) k/uL RBC (4.30-5.90) m/uL Hgb (13.0-17.5) gm/dL Hct (39.0-53.0) % RDW (11.5-15.5) % Plt Count (150-450) k/uL Neutrophils # (Manual) (1.3-7.7) k/uL Lymphocytes # (Manual) (1.0-4.8) k/uL Eosinophils # (Manual) (0-0.7) k/uL Basophils # (Manual) (0-0.2) k/uL Haptoglobin 295.0 H (31.2-198.0) mg/dL ABG pH 7.15 L* (7.35-7.45) ABG pCO2 (35-45) mmHg ABG pO2 (83-108) mmHg ABG HCO3 (21-25) mmol/L ABG Total CO2 (19-24) mmol/L ABG O2 Saturation (94-97) % Chloride (98-107) mmol/L Carbon Dioxide (22-30) mmol/L BUN (9-20) mg/dL Glucose (74-99) mg/dL POC Glucose (mg/dL) (75-99) mg/dL Calcium (8.4-10.2) mg/dL Phosphorus (2.5-4.5) mg/dL Magnesium (1.6-2.3) mg/dL AST (17-59) U/L Total Creatine Kinase 720 H (55-170) U/L CK-MB (CK-2) 102.0 H (0.0-2.4) ng/mL Troponin I (0.000-0.034) ng/mL Total Protein (6.3-8.2) g/dL Albumin (3.5-5.0) g/dL 03/26/19 03/26/19 03/27/19 Range/Units 17:29 17:30 00:20 WBC (3.8-10.6) k/uL RBC (4.30-5.90) m/uL Hgb (13.0-17.5) gm/dL Hct (39.0-53.0) % RDW (11.5-15.5) % Plt Count (150-450) k/uL Neutrophils # (Manual) (1.3-7.7) k/uL Lymphocytes # (Manual) (1.0-4.8) k/uL Eosinophils # (Manual) (0-0.7) k/uL Basophils # (Manual) (0-0.2) k/uL Haptoglobin (31.2-198.0) mg/dL ABG pH (7.35-7.45) ABG pCO2 (35-45) mmHg ABG pO2 (83-108) mmHg ABG HCO3 (21-25) mmol/L ABG Total CO2 (19-24) mmol/L ABG O2 Saturation (94-97) % Chloride (98-107) mmol/L Carbon Dioxide (22-30) mmol/L BUN (9-20) mg/dL Glucose (74-99) mg/dL POC Glucose (mg/dL) 107 H 133 H (75-99) mg/dL Calcium (8.4-10.2) mg/dL Phosphorus (2.5-4.5) mg/dL Magnesium (1.6-2.3) mg/dL AST (17-59) U/L Total Creatine Kinase (55-170) U/L CK-MB (CK-2) (0.0-2.4) ng/mL Troponin I 31.000 H* (0.000-0.034) ng/mL Total Protein (6.3-8.2) g/dL Albumin (3.5-5.0) g/dL 03/27/19 03/27/19 03/27/19 Range/Units 04:02 04:10 04:10 WBC 82.3 H* (3.8-10.6) k/uL RBC 2.62 L (4.30-5.90) m/uL Hgb 7.8 L (13.0-17.5) gm/dL Hct 23.5 L (39.0-53.0) % RDW 17.3 H (11.5-15.5) % Plt Count 149 L (150-450) k/uL Neutrophils # (Manual) 8.20 H (1.3-7.7) k/uL Lymphocytes # (Manual) 73.25 H (1.0-4.8) k/uL Eosinophils # (Manual) 0.82 H (0-0.7) k/uL Basophils # (Manual) 0.82 H (0-0.2) k/uL Haptoglobin (31.2-198.0) mg/dL ABG pH (7.35-7.45) ABG pCO2 28 L (35-45) mmHg ABG pO2 147 H (83-108) mmHg ABG HCO3 17 L (21-25) mmol/L ABG Total CO2 18 L (19-24) mmol/L ABG O2 Saturation 99.2 H (94-97) % Chloride 116 H (98-107) mmol/L Carbon Dioxide 18 L (22-30) mmol/L BUN 33 H (9-20) mg/dL Glucose 122 H (74-99) mg/dL POC Glucose (mg/dL) (75-99) mg/dL Calcium 7.4 L (8.4-10.2) mg/dL Phosphorus 2.4 L (2.5-4.5) mg/dL Magnesium (1.6-2.3) mg/dL AST 106 H (17-59) U/L Total Creatine Kinase (55-170) U/L CK-MB (CK-2) (0.0-2.4) ng/mL Troponin I (0.000-0.034) ng/mL Total Protein 4.2 L (6.3-8.2) g/dL Albumin 2.5 L (3.5-5.0) g/dL 03/27/19 03/27/19 Range/Units 04:10 05:26 WBC (3.8-10.6) k/uL RBC (4.30-5.90) m/uL Hgb (13.0-17.5) gm/dL Hct (39.0-53.0) % RDW (11.5-15.5) % Plt Count (150-450) k/uL Neutrophils # (Manual) (1.3-7.7) k/uL Lymphocytes # (Manual) (1.0-4.8) k/uL Eosinophils # (Manual) (0-0.7) k/uL Basophils # (Manual) (0-0.2) k/uL Haptoglobin (31.2-198.0) mg/dL ABG pH (7.35-7.45) ABG pCO2 (35-45) mmHg ABG pO2 (83-108) mmHg ABG HCO3 (21-25) mmol/L ABG Total CO2 (19-24) mmol/L ABG O2 Saturation (94-97) % Chloride (98-107) mmol/L Carbon Dioxide (22-30) mmol/L BUN (9-20) mg/dL Glucose (74-99) mg/dL POC Glucose (mg/dL) 126 H (75-99) mg/dL Calcium (8.4-10.2) mg/dL Phosphorus (2.5-4.5) mg/dL Magnesium 2.6 H (1.6-2.3) mg/dL AST (17-59) U/L Total Creatine Kinase (55-170) U/L CK-MB (CK-2) (0.0-2.4) ng/mL Troponin I (0.000-0.034) ng/mL Total Protein (6.3-8.2) g/dL Albumin (3.5-5.0) g/dL Microbiology - Last 24 Hours (Table) 03/23/19 18:07 Blood Culture - Preliminary Blood No Growth after 72 hours 03/26/19 02:23 Gram Stain - Preliminary Sputum Sputum Culture - Preliminary Assessment and Plan Assessment: 1-patient was initially admitted hospital with abdominal pain from significant decrease in size of his lymphadenopathy with concern for possible compression of the intestine with component of ischemic colitis versus diverticulitis 2-patient with new fever last night after the patient did have significant change in his clinical condition with acute respiratory failure and vent dependent respiratory failure with a possible component of aspiration pneumonitis Plan: 1-blood and sputum culture has been obtained those will be followed 2-vancomycin pharmacy to dose target trough of 15 to continue along with cefepime and Flagyl Adjusting antibiotic further on the basis of culture report and clinical condition Time with Patient: Less than 30
[2019-03-27 19:23] LABS: Glucose,Whole Blood 136 mg/dL (75-99)
[2019-03-27] MEDS: ATORVASTATIN 20 MG TAB PO SCH (20:42)
[2019-03-28 00:01] LABS: Glucose,Whole Blood 125 mg/dL (75-99)
[2019-03-28] MEDS: INSULIN ASPART (NovoLOG) 100 UNIT/ML VIAL SQ SCH ×4 (00:05→17:19)
[2019-03-28] MEDS: NOREPINEPHRINE 4 MG in SODIUM CHLORIDE 0.9% 250 ML IV SCH ×2 (01:39→08:48)
[2019-03-28] MEDS: PROPOFOL 1,000 MG in EMPTY BAG 1 BAG IV SCH ×5 (02:42→22:49)
[2019-03-28] MEDS: IPRATROPIUM-ALBUTEROL 3 ML NEB INHALATION SCH ×6 (03:11→22:59)
[2019-03-28] MEDS: AMIODARONE 300 MG in DEXTROSE 5% IN WATER 250 ML IV SCH ×4 (03:51→23:45)
[2019-03-28 04:33] LABS: Anisocytosis Slight; HCT 24.9 % (39.0-53.0); HGB 7.9 gm/dL (13.0-17.5); MCH 29.2 pg (25.0-35.0); MCHC 31.9 g/dL (31.0-37.0); MCV 91.5 fL (80.0-100.0); Mean Platelet Volume 7.4; Platelet Count 162 k/uL (150-450); Poikilocytosis Slight; RBC 2.72 m/uL (4.30-5.90); RDW 17.9 % (11.5-15.5)
[2019-03-28 04:35] LABS: ABG Base Excess -9.3 mmol/L; ABG HCO3 16 mmol/L (21-25); ABG Oxygen Saturation 99.2 % (94-97); ABG PCO2 27 mmHg (35-45); ABG PH 7.38 (7.35-7.45); ABG PO2 159 mmHg (83-108); ABG TCO2 17 mmol/L (19-24)
[2019-03-28 04:53] LABS: Albumin 2.3 g/dL (3.5-5.0); Calcium 7.3 mg/dL (8.4-10.2); Magnesium 2.4 mg/dL (1.6-2.3); Phosphorus 2.4 mg/dL (2.5-4.5); Potassium 3.8 mmol/L (3.5-5.1); Total Bilirubin 0.7 mg/dL (0.2-1.3); Uric Acid 6.9 mg/dL (3.5-8.5)
[2019-03-28 05:47] LABS: Glucose,Whole Blood 122 mg/dL (75-99)
[2019-03-28] MEDS ORDERED: Phosphorus Replacement Protoco 1 EACH MISC MISCELLANE PRN (06:06)
[2019-03-28] MEDS ORDERED: POTASSIUM PHOSPHATE 10 MMOL in SODIUM CHLORIDE 0.9% 250 ML IV ONE (07:00)
--- NOTE | 2019-03-28 08:06 | XR ---
EXAMINATION TYPE: XR chest 1V portable DATE OF EXAM: 03/28/2019 COMPARISON: 03/27/2019 HISTORY: Tube placement TECHNIQUE: Single frontal view of the chest is obtained. FINDINGS: ET tube remains low in position 1 cm above the pavel. NG tube stable. Bilateral consolida tion and pleural effusion. No sizable pneumothorax. Arthropathy shoulders. Rotation limits assessment of the mediastinum. IMPRESSION: 1. Bilateral infiltrate and pleural effusion stable correlate for pneumonia otherwise consider CHF.
--- NOTE | 2019-03-28 08:45 | PN ---
PROGRESS NOTE Mr. Lee is an 78-year-old male with a history of paroxysmal fibrillation who presented with symptoms of progressive weakness and hypotension. He has a history of CLL. He came in with abdominal discomfort and subsequently had respiratory failure and severe hypertension requiring mechanical ventilation and vasopressor. He had evidence of non ST-segment elevation myocardial infarction. His echocardiogram showed a moderately severely impaired left ventricular systolic function. He was in atrial fibrillation. He is back in sinus mechanism at this time. He continues to be intubated and sedated. He continued to be on norepinephrine. He has no evidence of ventricular arrhythmia. He continues to be at this time on the IV amiodarone drip, aspirin 81 mg daily, Lipitor 20 mg daily, metoprolol tartrate 12.5 mg twice a day. PHYSICAL EXAMINATION: Blood pressure 102/50 with the heart rate in the 80s. LUNGS: Clear anteriorly. HEART: Regular rate and rhythm. S1, S2. No S3 with a systolic murmur. No diastolic murmur. ABDOMEN: Soft. Positive bowel sounds. No organomegaly. EXTREMITIES: With 1+ edema. LAB DATA: Lab data revealed a white blood cell of 87 , hemoglobin 7.9, platelet count of 162. BUN and creatinine 25 and 1.03. Potassium 3.8. His magnesium is 2.4. IMPRESSION: 1. Respiratory failure with sepsis. 2. Chronic lymphocytic leukemia with severe anemia. 3. Paroxysmal atrial fibrillation back in sinus mechanism. 4. Status post non ST-segment elevation myocardial infarction. 5. Moderate severe ischemic cardiomyopathy. RECOMMENDATION: From the cardiac standpoint, I will continue IV amiodarone at this time. We will continue supportive care. Unfortunately, the prognosis remains quite poor in view of the underlying malignancy. I have discussed those findings with the family. MMODL / IJN: [id number] /
[2019-03-28] MEDS: ASPIRIN 81 MG PO SCH (08:47)
[2019-03-28] MEDS: CHLORHEXIDINE GLUCONATE 15 ML CUP MUCOUS MEM SCH ×2 (08:47→20:06)
[2019-03-28] MEDS: METOPROLOL TARTRATE 12.5 MG TAB PO SCH ×2 (08:47→20:06)
[2019-03-28] MEDS: ENOXAPARIN 40 MG/0.4 ML SYRINGE SQ SCH (08:47)
[2019-03-28] MEDS: metroNIDAZOLE 500 MG TAB PO SCH ×3 (08:48→21:37)
[2019-03-28] MEDS: VANCOMYCIN 1,500 MG in SODIUM CHLORIDE 0.9% 250 ML IVPB SCH (09:12)
[2019-03-28] MEDS: CEFEPIME 2 GM in SODIUM CHLORIDE 0.9% 100 ML IVPB SCH ×2 (09:12→21:49)
--- NOTE | 2019-03-28 09:41 | P.PN ---
Subjective Progress Note Date: 03/28/19 On today's evaluation of 03/27/2019 I'm seeing this patient for a follow-up. The patient is currently intubated on a mechanical ventilator. The patient is known history of CLL receiving FOLFOX treatment on outpatient basis.. The patient came in for increased abdominal pain and subsequently the patient went into respiratory failure and hemodynamic collapse. The patient suffered an acute non-ST segment elevation myocardial infarction and troponin peaked at 31. Cardiology is on the case This morning, the patient was sedated with propofol at 50 g per KG per minute. The patient is intubated on a mechanical ventilator. Earlier this morning the patient was on a volume cycle mode of ventilation with a tidal volume of 450 with a rate of 20, FiO2 of 40% and a PEEP of 5. The patient is intubated with a #8 ET tube. The blood gases from this morning showed a pH of 7.39 with a pCO2 of 28 and pO2 of 147. The patient was still having higher tidal volumes and is minute ventilation was quite elevated. Based on all this, I increased his tidal volume of 2 600 which made the patient much more comfortable and sickness with a mechanical ventilator. The patient is afebrile. The patient is hypotensive and earlier this morning he was on norepinephrine infusion running at a rate of 21 mcg/m. His urine output is in order of 60 mL an hour. The patient is on IV fluids at 0.9 at the rate of 100 mL an hour. The patient is in atrial fibrillation. He is on an amiodarone drip at 0.5 g per minute as a maintenance. He has a left IJ triple-lumen catheter and the CVP is in the range of 8 and 9 mmHg. The patient had a chest x-ray this morning that showed bilateral basilar infiltrates and bilateral pleural effusions are small. The patient also had some mild cardiomegaly. ET tube was lying low with a tip being around 1. 6 cm above the pavel. The patient remains nothing by mouth. He remains well covered with a combination of cefepime and Flagyl and vancomycin as broad-spectrum antibiotic coverage. Urine culture from 2018 has been negative. Sputum culture from 03/26/2019 is negative and the blood culture from 516 has been negative and the repeat blood culture was sent on 03/27/2019. Hematologic profile was quite abnormal and then consistent with the patient's history of CLL. Hemoglobin is at 7.3 with a platelet count of 149 and a white cell count of 82.3. Anything else no abdominal distention. OG tube is in place and there is no significant drainage from the orogastric tube. Echocardiogram showed segmental wall motion abnormalities along with an ejection fraction of 35-40%. On 03/28/2019 I'm seeing this patient for a follow-up. He was intubated sedated on a mechanical ventilator. The patient is currently on assist control mode of ventilation with a tidal volume of 450 and FiO2 of 40% with a PEEP of 5 and the rate of 20. Blood gases from today showed a pH of 7.38 with a pCO2 of 27 and pO2 of 159. His chest x-ray still showing bilateral pulmonary infiltrates and cardiomegaly and ET tube is in good location. The patient is producing good urine output and the fluid balance over the past 24 hours has been +3.8 L. He has converted back into normal sinus rhythm. He is on low-dose norepinephrine infusion which is running at 4-5 g per minute. Antibiotic coverage includes a combination of cefepime and vancomycin. He is also on Flagyl. He had a low- grade temperature yesterday with a T-max of 100.2 and currently he is afebrile. He remains nothing by mouth. No significant output from his orogastric tube. No significant abdominal distention. Bowel sounds are hypoactive, nearly absent yet there is no abdominal distention. His echo cardiac damage showed an ejection fraction of 35-40% along with segmental wall motion abnormalities. He is receiving IV fluids at the rate of 100 mL an hour. Discussed the case with cardiology. Discussed the case with oncology. Objective - Vital Signs Vital signs: Vital Signs Temp 98.1 F 03/28/19 04:00 Pulse 95 03/28/19 07:25 Resp 20 03/28/19 07:00 BP 96/58 03/28/19 07:00 Pulse Ox 99 03/28/19 07:00 Intake & Output 03/27/19 03/28/19 03/28/19 18:59 06:59 18:59 Intake Total 3492.381 2467.267 229.393 Output Total 1270 820 35 Balance 2222.381 1647.267 194.393 Weight 90 kg Intake: IV 66 1269 106 Cefepime 2 gm In Sodium 200 Chloride 0.9% 100 ml @ 200 mls/hr IVPB Q12H [facility] Rx#:[id number] Pressure bags 0.9 66 69 6 Sodium Chloride 0.9% 1, 1000 100 000 ml @ 100 mls/hr IV . Q10H [facility] Rx#:[id number] Intake, IV Titration 3426.381 1198.267 123.393 Amount Amiodarone 300 mg In 250 423.750 Dextrose 5% in Water 250 ml @ 0.5 MG/MIN 25 mls/hr IV .Q10H [facility] Rx#: [id number] Amiodarone 360 mg In 167.0 Dextrose 5% in Water 200 ml @ 1 MG/MIN 33.333 mls/ hr IV .Q6H [facility] Rx#: [id number] Cefepime 2 gm In Sodium 100 Chloride 0.9% 100 ml @ 200 mls/hr IVPB Q12H [facility] Rx#:[id number] Norepinephrine 4 mg In 556.545 484.607 23.393 Sodium Chloride 0.9% 250 ml @ 0.05 MCG/KG/MIN 15. 122 mls/hr IV .[id number] [facility] Rx#:[id number] Propofol 1,000 mg In 252.836 189.91 100 Empty Bag 1 bag @ Titrate IV .Q0M [facility] Rx#: [id number] Sodium Chloride 0.9% 1, 1100 100 000 ml @ 100 mls/hr IV . Q10H [facility] Rx#:[id number] Sodium Chloride 0.9% 1, 1000 000 ml @ 999 mls/hr IV . Q1H1M [facility] Rx#:[id number] Output: Gastric Drainage 500 140 Urine 770 680 35 Other: Voiding Method Indwelling Catheter Indwelling Catheter ABP, PAP, CO, CI - Last Documented Arterial Blood Pressure 102/50 - Exam Gen. appearance, comfortable sedated intubated on a mechanical ventilator and the patient is synchronous with the mechanical ventilation. Head exam was generally normal. There was no scleral icterus or corneal arcus. Mucous membranes were moist. Neck was supple and without jugular venous distension, thyromegaly, or carotid bruits. Carotids were easily palpable bilaterally. There was no adenopathy. The patient has an orogastric and orotracheal tube are both of them are in place and the patient has a left IJ triple-lumen catheter. Lungs sounds are diminished bilaterally. Breath sounds are otherwise equal and symmetrical. Heart sounds are irregular S1-S2 consistent with atrial fibrillation. No significant murmurs appreciated. No right ventricular heave or thrill. Abdominal exam revealed normal bowel sounds. The abdomen was soft, non-tender, and without masses, organomegaly, or appreciable enlargement of the abdominal aorta. Extremities are warm. There is equal and symmetrical pulses in lower ext remities bilaterally with +1 pulses. No cyanosis. No clubbing. Neurologically the patient is sedated, comfortable. Synchronous with the mechanical ventilator. Pupils are equal and reactive to light. No facial asymmetry. No seizure activity has been noted. Examination of the skin revealed no evidence of significant rashes, suspicious appearing nevi or other concerning lesions. - Labs CBC & Chem 7: 03/28/19 04:19 03/28/19 04:19 Labs: Abnormal Lab Results - Last 24 Hours (Table) 03/25/19 03/27/19 03/27/19 Range/Units 12:11 04:10 12:18 WBC (3.8-10.6) k/uL RBC (4.30-5.90) m/uL Hgb (13.0-17.5) gm/dL Hct (39.0-53.0) % RDW (11.5-15.5) % Haptoglobin 295.0 H (31.2-198.0) mg/dL ABG pCO2 (35-45) mmHg ABG pO2 (83-108) mmHg ABG HCO3 (21-25) mmol/L ABG Total CO2 (19-24) mmol/L ABG O2 Saturation (94-97) % Chloride (98-107) mmol/L Carbon Dioxide (22-30) mmol/L BUN (9-20) mg/dL Glucose (74-99) mg/dL POC Glucose (mg/dL) 129 H (75-99) mg/dL Calcium (8.4-10.2) mg/dL Phosphorus (2.5-4.5) mg/dL Magnesium (1.6-2.3) mg/dL AST (17-59) U/L Total Protein (6.3-8.2) g/dL Albumin (3.5-5.0) g/dL Procalcitonin 1.10 H (0.02-0.09) ng/mL 03/27/19 03/27/19 03/28/19 Range/Units 19:12 23:49 04:19 WBC 87.0 H* (3.8-10.6) k/uL RBC 2.72 L (4.30-5.90) m/uL Hgb 7.9 L (13.0-17.5) gm/dL Hct 24.9 L (39.0-53.0) % RDW 17.9 H (11.5-15.5) % Haptoglobin (31.2-198.0) mg/dL ABG pCO2 (35-45) mmHg ABG pO2 (83-108) mmHg ABG HCO3 (21-25) mmol/L ABG Total CO2 (19-24) mmol/L ABG O2 Saturation (94-97) % Chloride (98-107) mmol/L Carbon Dioxide (22-30) mmol/L BUN (9-20) mg/dL Glucose (74-99) mg/dL POC Glucose (mg/dL) 136 H 125 H (75-99) mg/dL Calcium (8.4-10.2) mg/dL Phosphorus (2.5-4.5) mg/dL Magnesium (1.6-2.3) mg/dL AST (17-59) U/L Total Protein (6.3-8.2) g/dL Albumin (3.5-5.0) g/dL Procalcitonin (0.02-0.09) ng/mL 03/28/19 03/28/19 03/28/19 Range/Units 04:19 04:33 05:36 WBC (3.8-10.6) k/uL RBC (4.30-5.90) m/uL Hgb (13.0-17.5) gm/dL Hct (39.0-53.0) % RDW (11.5-15.5) % Haptoglobin (31.2-198.0) mg/dL ABG pCO2 27 L (35-45) mmHg ABG pO2 159 H (83-108) mmHg ABG HCO3 16 L (21-25) mmol/L ABG Total CO2 17 L (19-24) mmol/L ABG O2 Saturation 99.2 H (94-97) % Chloride 119 H (98-107) mmol/L Carbon Dioxide 17 L (22-30) mmol/L BUN 25 H (9-20) mg/dL Glucose 117 H (74-99) mg/dL POC Glucose (mg/dL) 122 H (75-99) mg/dL Calcium 7.3 L (8.4-10.2) mg/dL Phosphorus 2.4 L (2.5-4.5) mg/dL Magnesium 2.4 H (1.6-2.3) mg/dL AST 60 H (17-59) U/L Total Protein 4.0 L (6.3-8.2) g/dL Albumin 2.3 L (3.5-5.0) g/dL Procalcitonin (0.02-0.09) ng/mL Microbiology - Last 24 Hours (Table) 03/27/19 01:10 Blood Culture - Preliminary Blood No Growth after 24 hours 03/23/19 18:07 Blood Culture - Preliminary Blood No Growth after 96 hours Assessment and Plan Plan: 1 shock with profound hypotension currently on pressors. The patient had a acute non-ST segment elevation myocardial infarction. The patient could be also potentially septic and this shock could be a combination of cardiac and septic in nature. The patient's CVP improved with fluid resuscitation and the patient has been a positive fluid balance. Currently the pressors have been weaned down to 4 g of norepinephrine infusion which is considerably lower compared to yesterday. The patient has also converted into a normal sinus rhythm. 2 acute hypoxic respiratory failure currently intubated on mechanical ventilator. 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 5 chronic atrial fibrillation currently on amiodarone drip for rate control at a maintenance of 0.5 mg per minute. The patient converted into normal sinus rhythm. The patient remains on a maintenance of amiodarone 0.5 mg/m. 6 history of chronic lymphocytic leukemia with significant enlargement of the intra-abdominal lymphadenopathy causing some mass effect in the abdominal structures including the bowel and the kidneys 7 hematologic abnormalities with an abnormal hematologic profile consistent with CLL. The patient has lymphocytosis, thrombocytopenia and anemia. The patient's counts have been stable. The white cell count remains elevated essentially lymphocytosis in addition to a stable hemoglobin is stable platelet count. 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 I also discussed the case with the various consultants. Unfortunately his condition is extremely critical. The patient has done some progress compared to yesterday. He is converted to normal sinus rhythm. He is presently requirements have dropped significantly compared to yesterday. My plan is to continue the same antibiotic regimen for now. My plan is to wean off the pressors over the next 12-24 hours if possible. He is currently back to normal sinus rhythm and will continue the amiodarone drip as maintenance. We'll going to initiate or try to give this patient tube feeds for now at a lower rate. I would recommended vital high protein at a rate of 10 mL an hour and will monitor the residual was very closely. There is a high likelihood that the patient may not tolerate the enteral feeding because of the large intra-abdominal mass secondary to his underlying CLL. I was told that the patient wasn't able to eat for the past 2 weeks at least. Note that his initial presentation was also for abdominal pain. In any rate, I think it's worthwhile to try enteral feeding and if it fails we'll proceed with TPN for nutritional support. The patient will be kept sedated for now. I'm going to cut down the IV fluids to KVO. Wean off pressors if possible. Start gentle diuresis with IV Lasix 40 mg every 12 hours. Further recommendations are to follow based on his overall progress. There is a critically care evaluation that was done and more than 30 minutes. Time with Patient: Greater than 30
[2019-03-28 10:30] LABS: Lymphocytes # (M) 73.95 k/uL (1.0-4.8); Monocytes # (M) 3.48 k/uL (0-1.0); Neutrophils # (M) 9.57 k/uL (1.3-7.7); Neutrophils % (M) 11 %; Nucleated Red Blood Cells 0 /100 WBC (0-0); Total Cells Counted 100
[2019-03-28 10:31] LABS: Polychromasia Present
[2019-03-28] MEDS: SODIUM CHLORIDE 0.9% 1,000 ML IV SCH (11:00)
[2019-03-28 11:12] LABS: Amorphous Sediment,Urine Rare /hpf; Appearance,Urine Turbid (Clear); Bilirubin,Urine Negative (Negative); Blood,Urine Moderate (Negative); Color,Urine Yellow; Glucose,Urine (UA) Negative (Negative); Granular Casts,Urine 12 /lpf (0); Ketones,Urine Trace (Negative); Leukocyte Esterase,Urine Small (Negative); Mucus,Urine Occasional /hpf; Nitrite,Urine Negative (Negative); PH, Urine 5.5 (5.0-8.0); Protein,Urine 1+ (Negative); RBC,Urine 62 /hpf (0-5); Urobilinogen,Urine <2.0 mg/dL (<2.0)
[2019-03-28] MEDS: FUROSEMIDE 10 MG/ML 4 ML VIAL IV SCH ×2 (11:34→20:06)
[2019-03-28 11:51] LABS: Glucose,Whole Blood 114 mg/dL (75-99)
--- NOTE | 2019-03-28 12:36 | P.PN ---
Subjective Progress Note Date: 03/28/19 Patient seen and examined with his family at bedside, patient currently sedated on propofol, mechanically intubated on ventilator. The patient has left IJ in place with CVP ranging 8-9. Currently on levophed drip, patient previously in A. fib converted earlier this morning to sinus mechanism and is continued on amiodarone drip. Continues to have urine output at 60 mL is continued on broad- spectrum antibiotics with cefepime and Flagyl vancomycin. Objective - Vital Signs Vital signs: Vital Signs Temp 99.4 F 03/28/19 08:00 Pulse 82 03/28/19 10:45 Resp 29 H 03/28/19 10:00 BP 94/62 03/28/19 10:00 Pulse Ox 99 03/28/19 10:00 Intake & Output 03/27/19 03/28/19 03/28/19 18:59 06:59 18:59 Intake Total 3492.381 2467.267 1023.720 Output Total 1270 820 395 Balance 2222.381 1647.267 628.720 Weight 90 kg 90 kg Intake: IV 66 1269 535 Cefepime 2 gm In Sodium 200 100 Chloride 0.9% 100 ml @ 200 mls/hr IVPB Q12H [facility] Rx#:[id number] Pressure bags 0.9 66 69 30 Sodium Chloride 0.9% 1, 1000 405 000 ml @ 5 mls/hr IV . Q24H [facility] Rx#:[id number] Intake, IV Titration 3426.381 1198.267 438.720 Amount Amiodarone 300 mg In 250 423.750 Dextrose 5% in Water 250 ml @ 0.5 MG/MIN 25 mls/hr IV .Q10H [facility] Rx#: [id number] Amiodarone 360 mg In 167.0 Dextrose 5% in Water 200 ml @ 1 MG/MIN 33.333 mls/ hr IV .Q6H [facility] Rx#: [id number] Cefepime 2 gm In Sodium 100 Chloride 0.9% 100 ml @ 200 mls/hr IVPB Q12H [facility] Rx#:[id number] Norepinephrine 4 mg In 556.545 484.607 88.720 Sodium Chloride 0.9% 250 ml @ 0.05 MCG/KG/MIN 15. 122 mls/hr IV .[id number] [facility] Rx#:[id number] Propofol 1,000 mg In 252.836 189.91 100 Empty Bag 1 bag @ Titrate IV .Q0M [facility] Rx#: [id number] Sodium Chloride 0.9% 1, 1100 100 000 ml @ 5 mls/hr IV . Q24H [facility] Rx#:[id number] Sodium Chloride 0.9% 1, 1000 000 ml @ 999 mls/hr IV . Q1H1M [facility] Rx#:[id number] Vancomycin 1,500 mg In 250 Sodium Chloride 0.9% 250 ml @ 125 mls/hr IVPB Q16H [facility] Rx#:[id number] Tube Feeding 20 Other 30 Output: Gastric Drainage 500 140 Urine 770 680 395 Other: Voiding Method Indwelling Catheter Indwelling Catheter Indwelling Catheter ABP, PAP, CO, CI - Last Documented Arterial Blood Pressure 115/53 - Exam Constitutional: No acute distress, conversant, pleasant Eyes: Anicteric sclerae, moist conjunctiva, no lid-lag, PERRLA ENMT: NC/AT,Oropharynx clear, no erythema, exudates Neck:Supple, FROM, no masses, or JVD, No carotid bruits; No thyromegaly, left IJ in place, Og/OT tube in place Lungs: Diminished in the bases bilaterally otherwise equal and symmetric Cardiovascular: Heart regular in rate and rhythm, No murmurs, gallops, or rubs no peripheral edema Abdominal: Soft Nontender, nom distended, no guarding, no rebound or rigidity, Normoactive bowel sounds No hepatomegaly, No splenomegaly, No palpable mass No abdominal wall hernia noted Skin: Normal temperature, tone, texture, turgor, No induration No subcutaneous nodules, No rash, lesions, No ulcers Extremities:No digital cyanosis No clubbing, Pedal pulses intact and symmetrical Radial pulses intact and symmetrical Normal gait and station, No calf tenderness Neuro: Sedated on propofol currently on mechanical ventilator, pupils are reactive to light, no seizure activity - Labs CBC & Chem 7: 03/29/19 04:44 03/29/19 04:44 Labs: Abnormal Lab Results - Last 24 Hours (Table) 03/27/19 03/27/19 03/27/19 Range/Units 04:10 12:18 19:12 WBC (3.8-10.6) k/uL RBC (4.30-5.90) m/uL Hgb (13.0-17.5) gm/dL Hct (39.0-53.0) % RDW (11.5-15.5) % Neutrophils # (Manual) (1.3-7.7) k/uL Lymphocytes # (Manual) (1.0-4.8) k/uL Monocytes # (Manual) (0-1.0) k/uL ABG pCO2 (35-45) mmHg ABG pO2 (83-108) mmHg ABG HCO3 (21-25) mmol/L ABG Total CO2 (19-24) mmol/L ABG O2 Saturation (94-97) % Chloride (98-107) mmol/L Carbon Dioxide (22-30) mmol/L BUN (9-20) mg/dL Glucose (74-99) mg/dL POC Glucose (mg/dL) 129 H 136 H (75-99) mg/dL Calcium (8.4-10.2) mg/dL Phosphorus (2.5-4.5) mg/dL Magnesium (1.6-2.3) mg/dL AST (17-59) U/L Total Protein (6.3-8.2) g/dL Albumin (3.5-5.0) g/dL Procalcitonin 1.10 H (0.02-0.09) ng/mL Urine Protein (Negative) Urine Ketones (Negative) Urine Blood (Negative) Ur Leukocyte Esterase (Negative) Urine RBC (0-5) /hpf Urine WBC (0-5) /hpf Amorphous Sediment (None) /hpf Urine Mucus (None) /hpf 03/27/19 03/28/19 03/28/19 Range/Units 23:49 04:19 04:19 WBC 87.0 H* (3.8-10.6) k/uL RBC 2.72 L (4.30-5.90) m/uL Hgb 7.9 L (13.0-17.5) gm/dL Hct 24.9 L (39.0-53.0) % RDW 17.9 H (11.5-15.5) % Neutrophils # (Manual) 9.57 H (1.3-7.7) k/uL Lymphocytes # (Manual) 73.95 H (1.0-4.8) k/uL Monocytes # (Manual) 3.48 H (0-1.0) k/uL ABG pCO2 (35-45) mmHg ABG pO2 (83-108) mmHg ABG HCO3 (21-25) mmol/L ABG Total CO2 (19-24) mmol/L ABG O2 Saturation (94-97) % Chloride 119 H (98-107) mmol/L Carbon Dioxide 17 L (22-30) mmol/L BUN 25 H (9-20) mg/dL Glucose 117 H (74-99) mg/dL POC Glucose (mg/dL) 125 H (75-99) mg/dL Calcium 7.3 L (8.4-10.2) mg/dL Phosphorus 2.4 L (2.5-4.5) mg/dL Magnesium 2.4 H (1.6-2.3) mg/dL AST 60 H (17-59) U/L Total Protein 4.0 L (6.3-8.2) g/dL Albumin 2.3 L (3.5-5.0) g/dL Procalcitonin (0.02-0.09) ng/mL Urine Protein (Negative) Urine Ketones (Negative) Urine Blood (Negative) Ur Leukocyte Esterase (Negative) Urine RBC (0-5) /hpf Urine WBC (0-5) /hpf Amorphous Sediment (None) /hpf Urine Mucus (None) /hpf 03/28/19 03/28/19 03/28/19 Range/Units 04:33 05:36 10:55 WBC (3.8-10.6) k/uL RBC (4.30-5.90) m/uL Hgb (13.0-17.5) gm/dL Hct (39.0-53.0) % RDW (11.5-15.5) % Neutrophils # (Manual) (1.3-7.7) k/uL Lymphocytes # (Manual) (1.0-4.8) k/uL Monocytes # (Manual) (0-1.0) k/uL ABG pCO2 27 L (35-45) mmHg ABG pO2 159 H (83-108) mmHg ABG HCO3 16 L (21-25) mmol/L ABG Total CO2 17 L (19-24) mmol/L ABG O2 Saturation 99.2 H (94-97) % Chloride (98-107) mmol/L Carbon Dioxide (22-30) mmol/L BUN (9-20) mg/dL Glucose (74-99) mg/dL POC Glucose (mg/dL) 122 H (75-99) mg/dL Calcium (8.4-10.2) mg/dL Phosphorus (2.5-4.5) mg/dL Magnesium (1.6-2.3) mg/dL AST (17-59) U/L Total Protein (6.3-8.2) g/dL Albumin (3.5-5.0) g/dL Procalcitonin (0.02-0.09) ng/mL Urine Protein 1+ H (Negative) Urine Ketones Trace H (Negative) Urine Blood Moderate H (Negative) Ur Leukocyte Esterase Small H (Negative) Urine RBC 62 H (0-5) /hpf Urine WBC 11 H (0-5) /hpf Amorphous Sediment Rare H (None) /hpf Urine Mucus Occasional H (None) /hpf 03/28/19 Range/Units 11:37 WBC (3.8-10.6) k/uL RBC (4.30-5.90) m/uL Hgb (13.0-17.5) gm/dL Hct (39.0-53.0) % RDW (11.5-15.5) % Neutrophils # (Manual) (1.3-7.7) k/uL Lymphocytes # (Manual) (1.0-4.8) k/uL Monocytes # (Manual) (0-1.0) k/uL ABG pCO2 (35-45) mmHg ABG pO2 (83-108) mmHg ABG HCO3 (21-25) mmol/L ABG Total CO2 (19-24) mmol/L ABG O2 Saturation (94-97) % Chloride (98-107) mmol/L Carbon Dioxide (22-30) mmol/L BUN (9-20) mg/dL Glucose (74-99) mg/dL POC Glucose (mg/dL) 114 H (75-99) mg/dL Calcium (8.4-10.2) mg/dL Phosphorus (2.5-4.5) mg/dL Magnesium (1.6-2.3) mg/dL AST (17-59) U/L Total Protein (6.3-8.2) g/dL Albumin (3.5-5.0) g/dL Procalcitonin (0.02-0.09) ng/mL Urine Protein (Negative) Urine Ketones (Negative) Urine Blood (Negative) Ur Leukocyte Esterase (Negative) Urine RBC (0-5) /hpf Urine WBC (0-5) /hpf Amorphous Sediment (None) /hpf Urine Mucus (None) /hpf Microbiology - Last 24 Hours (Table) 03/26/19 02:23 Gram Stain - Final Sputum Sputum Culture - Final 03/27/19 01:10 Blood Culture - Preliminary Blood No Growth after 24 hours 03/23/19 18:07 Blood Culture - Preliminary Blood No Growth after 96 hours Assessment and Plan (1) Shock Narrative/Plan: * Multifactorial due to cardiogenic secondary to non-STEMI with ICM superimposed on septic shock due PNA and intrabdominal pathology * Patient continued on IV pressors currently down to 4 g of levophed , CVP 8-9 * Continued on broad-spectrum antibiotics with cefepime and vancomycin and Flagyl Current Visit: Yes Status: Acute Code(s): R57.9 - SHOCK, UNSPECIFIED SNOMED Code(s): 82702728 (2) Acute respiratory failure with hypoxia Narrative/Plan: * Continued on mechanical ventilation per pulmonary critical care * ABG pH of 7.38 with a pCO2 of 27 and pO2 of 159 with chest x-ray showing bilateral infiltrative pleural effusion * Continue scheduled and when necessary DuoNeb bronchodilator breathing pretty tments, patient sedated on propofol continue that Current Visit: Yes Status: Acute Priority: High Code(s): J96.01 - ACUTE RESPIRATORY FAILURE WITH HYPOXIA SNOMED Code(s): 28180342 (3) Non-STEMI (non-ST elevated myocardial infarction) Narrative/Plan: * Initial troponin less than 0.012. EKG ordered yesterday for concerns of tachycardia, with ST depression, troponin reordered to rule out ACS. * Repeat troponin 3.650, 8.210, 20.4, 31. Possibly related to true cardiac event from severe anemia and hypotension. * Echocardiogram shows EF 35-40% with hypokinetic wall motion. * Continue Telemetry monitoring. Continue aspirin. As per Dr. Rajput, not candidate for aggressive cardiac workup. Follow cardiology recommendations. No heparin due to severe anemia. Current Visit: Yes Status: Acute Code(s): I21.4 - NON-ST ELEVATION (NSTEMI) MYOCARDIAL INFARCTION SNOMED Code(s): 54859480 (4) Ischemic cardiomyopathy Current Visit: Yes Status: Acute Code(s): I25.5 - ISCHEMIC CARDIOMYOPATHY SNOMED Code(s): 090520946 (5) Chronic a-fib Narrative/Plan: * Currently rate controlled. Plan: Continue metoprolol. Continue Propafenone. Started on amiodarone drip. * No anticoagulation due to severe anemia. K > 4 and Mg > 2. Follow cardiology recommendations. Current Visit: Yes Status: Acute Code(s): I48.2 - CHRONIC ATRIAL FIBRILLATION SNOMED Code(s): 651633384 Plan: Disposition * Plan to start the patient on a high protein tube feeds in conjunction with TPN * Appreciate consultants recommendations, continue to monitor daily and update family with plan of care Patient critical family aware *
--- NOTE | 2019-03-28 14:08 | P.PN ---
Subjective Progress Note Date: 03/28/19 Principal diagnosis: Cardiopulmonary arrest, acute OR, Enlarging abdominal mass Patient is sedated and mechanically ventilated, no acute distress noted. Family members at the bedside Objective - Vital Signs Vital signs: Vital Signs Temp 98.5 F 03/28/19 12:00 Pulse 89 03/28/19 12:00 Resp 20 03/28/19 12:00 BP 93/51 03/28/19 12:00 Pulse Ox 100 03/28/19 12:00 Intake & Output 03/27/19 03/28/19 03/28/19 18:59 06:59 18:59 Intake Total 3492.381 2467.267 1123.720 Output Total 1270 820 395 Balance 2222.381 1647.267 728.720 Weight 90 kg 90 kg Intake: IV 66 1269 535 Cefepime 2 gm In Sodium 200 100 Chloride 0.9% 100 ml @ 200 mls/hr IVPB Q12H [facility] Rx#:[id number] Pressure bags 0.9 66 69 30 Sodium Chloride 0.9% 1, 1000 405 000 ml @ 5 mls/hr IV . Q24H [facility] Rx#:[id number] Intake, IV Titration 3426.381 1198.267 538.720 Amount Amiodarone 300 mg In 250 423.750 Dextrose 5% in Water 250 ml @ 0.5 MG/MIN 25 mls/hr IV .Q10H [facility] Rx#: [id number] Amiodarone 360 mg In 167.0 Dextrose 5% in Water 200 ml @ 1 MG/MIN 33.333 mls/ hr IV .Q6H [facility] Rx#: [id number] Cefepime 2 gm In Sodium 100 Chloride 0.9% 100 ml @ 200 mls/hr IVPB Q12H [facility] Rx#:[id number] Norepinephrine 4 mg In 556.545 484.607 88.720 Sodium Chloride 0.9% 250 ml @ 0.05 MCG/KG/MIN 15. 122 mls/hr IV .[id number] [facility] Rx#:[id number] Propofol 1,000 mg In 252.836 189.91 200 Empty Bag 1 bag @ Titrate IV .Q0M [facility] Rx#: [id number] Sodium Chloride 0.9% 1, 1100 100 000 ml @ 5 mls/hr IV . Q24H [facility] Rx#:[id number] Sodium Chloride 0.9% 1, 1000 000 ml @ 999 mls/hr IV . Q1H1M [facility] Rx#:[id number] Vancomycin 1,500 mg In 250 Sodium Chloride 0.9% 250 ml @ 125 mls/hr IVPB Q16H [facility] Rx#:[id number] Tube Feeding 20 Other 30 Output: Gastric Drainage 500 140 Urine 770 680 395 Other: Voiding Method Indwelling Catheter Indwelling Catheter Indwelling Catheter ABP, PAP, CO, CI - Last Documented Arterial Blood Pressure 121/53 - Exam Well-developed, well-nourished male, mechanically ventilated and sedated, no signs or symptoms to suggest pain or distress, anasarca noted, mild, pitting, bilateral upper extremity bruising, Merritt catheter collection device is overflowing with large quantities of clear, yellow urine - Labs CBC & Chem 7: 03/28/19 04:19 03/28/19 04:19 Labs: Abnormal Lab Results - Last 24 Hours (Table) 03/27/19 03/27/19 03/27/19 Range/Units 04:10 19:12 23:49 WBC (3.8-10.6) k/uL RBC (4.30-5.90) m/uL Hgb (13.0-17.5) gm/dL Hct (39.0-53.0) % RDW (11.5-15.5) % Neutrophils # (Manual) (1.3-7.7) k/uL Lymphocytes # (Manual) (1.0-4.8) k/uL Monocytes # (Manual) (0-1.0) k/uL ABG pCO2 (35-45) mmHg ABG pO2 (83-108) mmHg ABG HCO3 (21-25) mmol/L ABG Total CO2 (19-24) mmol/L ABG O2 Saturation (94-97) % Chloride (98-107) mmol/L Carbon Dioxide (22-30) mmol/L BUN (9-20) mg/dL Glucose (74-99) mg/dL POC Glucose (mg/dL) 136 H 125 H (75-99) mg/dL Calcium (8.4-10.2) mg/dL Phosphorus (2.5-4.5) mg/dL Magnesium (1.6-2.3) mg/dL AST (17-59) U/L Total Protein (6.3-8.2) g/dL Albumin (3.5-5.0) g/dL Procalcitonin 1.10 H (0.02-0.09) ng/mL Urine Protein (Negative) Urine Ketones (Negative) Urine Blood (Negative) Ur Leukocyte Esterase (Negative) Urine RBC (0-5) /hpf Urine WBC (0-5) /hpf Amorphous Sediment (None) /hpf Urine Mucus (None) /hpf 03/28/19 03/28/19 03/28/19 Range/Units 04:19 04:19 04:33 WBC 87.0 H* (3.8-10.6) k/uL RBC 2.72 L (4.30-5.90) m/uL Hgb 7.9 L (13.0-17.5) gm/dL Hct 24.9 L (39.0-53.0) % RDW 17.9 H (11.5-15.5) % Neutrophils # (Manual) 9.57 H (1.3-7.7) k/uL Lymphocytes # (Manual) 73.95 H (1.0-4.8) k/uL Monocytes # (Manual) 3.48 H (0-1.0) k/uL ABG pCO2 27 L (35-45) mmHg ABG pO2 159 H (83-108) mmHg ABG HCO3 16 L (21-25) mmol/L ABG Total CO2 17 L (19-24) mmol/L ABG O2 Saturation 99.2 H (94-97) % Chloride 119 H (98-107) mmol/L Carbon Dioxide 17 L (22-30) mmol/L BUN 25 H (9-20) mg/dL Glucose 117 H (74-99) mg/dL POC Glucose (mg/dL) (75-99) mg/dL Calcium 7.3 L (8.4-10.2) mg/dL Phosphorus 2.4 L (2.5-4.5) mg/dL Magnesium 2.4 H (1.6-2.3) mg/dL AST 60 H (17-59) U/L Total Protein 4.0 L (6.3-8.2) g/dL Albumin 2.3 L (3.5-5.0) g/dL Procalcitonin (0.02-0.09) ng/mL Urine Protein (Negative) Urine Ketones (Negative) Urine Blood (Negative) Ur Leukocyte Esterase (Negative) Urine RBC (0-5) /hpf Urine WBC (0-5) /hpf Amorphous Sediment (None) /hpf Urine Mucus (None) /hpf 03/28/19 03/28/19 03/28/19 Range/Units 05:36 10:55 11:37 WBC (3.8-10.6) k/uL RBC (4.30-5.90) m/uL Hgb (13.0-17.5) gm/dL Hct (39.0-53.0) % RDW (11.5-15.5) % Neutrophils # (Manual) (1.3-7.7) k/uL Lymphocytes # (Manual) (1.0-4.8) k/uL Monocytes # (Manual) (0-1.0) k/uL ABG pCO2 (35-45) mmHg ABG pO2 (83-108) mmHg ABG HCO3 (21-25) mmol/L ABG Total CO2 (19-24) mmol/L ABG O2 Saturation (94-97) % Chloride (98-107) mmol/L Carbon Dioxide (22-30) mmol/L BUN (9-20) mg/dL Glucose (74-99) mg/dL POC Glucose (mg/dL) 122 H 114 H (75-99) mg/dL Calcium (8.4-10.2) mg/dL Phosphorus (2.5-4.5) mg/dL Magnesium (1.6-2.3) mg/dL AST (17-59) U/L Total Protein (6.3-8.2) g/dL Albumin (3.5-5.0) g/dL Procalcitonin (0.02-0.09) ng/mL Urine Protein 1+ H (Negative) Urine Ketones Trace H (Negative) Urine Blood Moderate H (Negative) Ur Leukocyte Esterase Small H (Negative) Urine RBC 62 H (0-5) /hpf Urine WBC 11 H (0-5) /hpf Amorphous Sediment Rare H (None) /hpf Urine Mucus Occasional H (None) /hpf Microbiology - Last 24 Hours (Table) 03/26/19 02:23 Gram Stain - Final Sputum Sputum Culture - Final 03/27/19 01:10 Blood Culture - Preliminary Blood No Growth after 24 hours 03/23/19 18:07 Blood Culture - Preliminary Blood No Growth after 96 hours Assessment and Plan (1) Acute respiratory failure with hypoxia Narrative/Plan: Critical care team management. Patient's vital signs look fairly well today. Medications are being titrated down. It was the family's impression that they may attempt weaning patient tomorrow. Current Visit: Yes Status: Acute Priority: High Code(s): J96.01 - ACUTE RESPIRATORY FAILURE WITH HYPOXIA SNOMED Code(s): 21789742 (2) Acute non-ST elevation myocardial infarction (NSTEMI) Narrative/Plan: Medical management per Cardiology Current Visit: Yes Status: Acute Priority: High Code(s): I21.4 - NON-ST ELEVATION (NSTEMI) MYOCARDIAL INFARCTION SNOMED Code(s): 284521204 (3) Elevated troponin Current Visit: Yes Status: Acute Priority: High Code(s): R79.89 - OTHER SPECIFIED ABNORMAL FINDINGS OF BLOOD CHEMISTRY SNOMED Code(s): 472321853 (4) Leukocytosis Narrative/Plan: Abdominal mass/adenopathy, leukocytosis, mostly lymphocytes, 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 Prior to initiation of treatment a core biopsy is necessary to determine what disease we will be treating. If patient is able to be successfully weaned off of mechanical ventilation, patient's family is aware that patient at least needs to be able to eat and drink and come to and from appointments in order to have the lymphoma treated. We will continue to follow with you Current Visit: Yes Status: Acute Priority: Medium Code(s): D72.829 - ELEVATED WHITE BLOOD CELL COUNT, UNSPECIFIED SNOMED Code(s): 728313930
[2019-03-28] MEDS: MVI, ADULT NO.4 WITH VIT K 10 ML, TRACE (CONC-1ML/DOSE) 1 ML, SODIUM ACETATE 30 MEQ, PO... IV SCH ×7 (14:47)
[2019-03-28 17:24] LABS: Glucose,Whole Blood 147 mg/dL (75-99)
[2019-03-28] MEDS: ATORVASTATIN 20 MG TAB PO SCH (20:06)
--- NOTE | 2019-03-28 22:39 | P.PN ---
Subjective Progress Note Date: 03/28/19 Principal diagnosis: Sepsis and possible aspiration pneumonia and diverticulitis Patient initially admitted hospital with abdominal pain in this patient did have significant increase in size of abdominal lymphadenopathy and possible component of diverticulitis patient was transferred to the ICU because of hypotension , morning of 03/26/2019 the patient did have significant change in his clinical condition and the patient ripped off his IV and leads subsequently did have sign ificant drop in the blood pressure and respiratory distress patient ended up getting intubated on 03/26/2019. On today's evaluation that is 03/28/2019, the patient is afebrile today, the patient FiO2 is currently and pressor are slowly weaned off , started on tube feeds and no diarrhea reported by the nursing staff Objective - Vital Signs Vital signs: Vital Signs Temp 99.4 F 03/28/19 08:00 Pulse 82 03/28/19 10:45 Resp 29 H 03/28/19 10:00 BP 94/62 03/28/19 10:00 Pulse Ox 99 03/28/19 10:00 Intake & Output 03/27/19 03/28/19 03/28/19 18:59 06:59 18:59 Intake Total 3492.381 2467.267 1023.720 Output Total 1270 820 395 Balance 2222.381 1647.267 628.720 Weight 90 kg 90 kg Intake: IV 66 1269 535 Cefepime 2 gm In Sodium 200 100 Chloride 0.9% 100 ml @ 200 mls/hr IVPB Q12H [facility] Rx#:[id number] Pressure bags 0.9 66 69 30 Sodium Chloride 0.9% 1, 1000 405 000 ml @ 5 mls/hr IV . Q24H [facility] Rx#:[id number] Intake, IV Titration 3426.381 1198.267 438.720 Amount Amiodarone 300 mg In 250 423.750 Dextrose 5% in Water 250 ml @ 0.5 MG/MIN 25 mls/hr IV .Q10H [facility] Rx#: [id number] Amiodarone 360 mg In 167.0 Dextrose 5% in Water 200 ml @ 1 MG/MIN 33.333 mls/ hr IV .Q6H [facility] Rx#: [id number] Cefepime 2 gm In Sodium 100 Chloride 0.9% 100 ml @ 200 mls/hr IVPB Q12H [facility] Rx#:[id number] Norepinephrine 4 mg In 556.545 484.607 88.720 Sodium Chloride 0.9% 250 ml @ 0.05 MCG/KG/MIN 15. 122 mls/hr IV .[id number] [facility] Rx#:[id number] Propofol 1,000 mg In 252.836 189.91 100 Empty Bag 1 bag @ Titrate IV .Q0M [facility] Rx#: [id number] Sodium Chloride 0.9% 1, 1100 100 000 ml @ 5 mls/hr IV . Q24H [facility] Rx#:[id number] Sodium Chloride 0.9% 1, 1000 000 ml @ 999 mls/hr IV . Q1H1M [facility] Rx#:[id number] Vancomycin 1,500 mg In 250 Sodium Chloride 0.9% 250 ml @ 125 mls/hr IVPB Q16H [facility] Rx#:[id number] Tube Feeding 20 Other 30 Output: Gastric Drainage 500 140 Urine 770 680 395 Other: Voiding Method Indwelling Catheter Indwelling Catheter Indwelling Catheter ABP, PAP, CO, CI - Last Documented Arterial Blood Pressure 115/53 - Exam GENERAL DESCRIPTION: The patient currently intubated on the vent and sedated HEENT: [Oral mucosa is dry and patient is orally intubated] EYES : [pallor or scleral icterus] RESPIRATORY SYSTEM: [Unlabored breathing decreased breath sound at the base] CARDIA VASCULAR SYSTEM: [S1-S2 regular rate and rhythm no murmur] GI: [Abdominal soft there's no tenderness no organomegaly] EXTREMITIES: [No edema feet] - Labs CBC & Chem 7: 03/28/19 04:19 03/28/19 04:19 Labs: Abnormal Lab Results - Last 24 Hours (Table) 03/27/19 03/27/19 03/27/19 Range/Units 04:10 12:18 19:12 WBC (3.8-10.6) k/uL RBC (4.30-5.90) m/uL Hgb (13.0-17.5) gm/dL Hct (39.0-53.0) % RDW (11.5-15.5) % Neutrophils # (Manual) (1.3-7.7) k/uL Lymphocytes # (Manual) (1.0-4.8) k/uL Monocytes # (Manual) (0-1.0) k/uL ABG pCO2 (35-45) mmHg ABG pO2 (83-108) mmHg ABG HCO3 (21-25) mmol/L ABG Total CO2 (19-24) mmol/L ABG O2 Saturation (94-97) % Chloride (98-107) mmol/L Carbon Dioxide (22-30) mmol/L BUN (9-20) mg/dL Glucose (74-99) mg/dL POC Glucose (mg/dL) 129 H 136 H (75-99) mg/dL Calcium (8.4-10.2) mg/dL Phosphorus (2.5-4.5) mg/dL Magnesium (1.6-2.3) mg/dL AST (17-59) U/L Total Protein (6.3-8.2) g/dL Albumin (3.5-5.0) g/dL Procalcitonin 1.10 H (0.02-0.09) ng/mL Urine Protein (Negative) Urine Ketones (Negative) Urine Blood (Negative) Ur Leukocyte Esterase (Negative) Urine RBC (0-5) /hpf Urine WBC (0-5) /hpf Amorphous Sediment (None) /hpf Urine Mucus (None) /hpf 03/27/19 03/28/19 03/28/19 Range/Units 23:49 04:19 04:19 WBC 87.0 H* (3.8-10.6) k/uL RBC 2.72 L (4.30-5.90) m/uL Hgb 7.9 L (13.0-17.5) gm/dL Hct 24.9 L (39.0-53.0) % RDW 17.9 H (11.5-15.5) % Neutrophils # (Manual) 9.57 H (1.3-7.7) k/uL Lymphocytes # (Manual) 73.95 H (1.0-4.8) k/uL Monocytes # (Manual) 3.48 H (0-1.0) k/uL ABG pCO2 (35-45) mmHg ABG pO2 (83-108) mmHg ABG HCO3 (21-25) mmol/L ABG Total CO2 (19-24) mmol/L ABG O2 Saturation (94-97) % Chloride 119 H (98-107) mmol/L Carbon Dioxide 17 L (22-30) mmol/L BUN 25 H (9-20) mg/dL Glucose 117 H (74-99) mg/dL POC Glucose (mg/dL) 125 H (75-99) mg/dL Calcium 7.3 L (8.4-10.2) mg/dL Phosphorus 2.4 L (2.5-4.5) mg/dL Magnesium 2.4 H (1.6-2.3) mg/dL AST 60 H (17-59) U/L Total Protein 4.0 L (6.3-8.2) g/dL Albumin 2.3 L (3.5-5.0) g/dL Procalcitonin (0.02-0.09) ng/mL Urine Protein (Negative) Urine Ketones (Negative) Urine Blood (Negative) Ur Leukocyte Esterase (Negative) Urine RBC (0-5) /hpf Urine WBC (0-5) /hpf Amorphous Sediment (None) /hpf Urine Mucus (None) /hpf 03/28/19 03/28/19 03/28/19 Range/Units 04:33 05:36 10:55 WBC (3.8-10.6) k/uL RBC (4.30-5.90) m/uL Hgb (13.0-17.5) gm/dL Hct (39.0-53.0) % RDW (11.5-15.5) % Neutrophils # (Manual) (1.3-7.7) k/uL Lymphocytes # (Manual) (1.0-4.8) k/uL Monocytes # (Manual) (0-1.0) k/uL ABG pCO2 27 L (35-45) mmHg ABG pO2 159 H (83-108) mmHg ABG HCO3 16 L (21-25) mmol/L ABG Total CO2 17 L (19-24) mmol/L ABG O2 Saturation 99.2 H (94-97) % Chloride (98-107) mmol/L Carbon Dioxide (22-30) mmol/L BUN (9-20) mg/dL Glucose (74-99) mg/dL POC Glucose (mg/dL) 122 H (75-99) mg/dL Calcium (8.4-10.2) mg/dL Phosphorus (2.5-4.5) mg/dL Magnesium (1.6-2.3) mg/dL AST (17-59) U/L Total Protein (6.3-8.2) g/dL Albumin (3.5-5.0) g/dL Procalcitonin (0.02-0.09) ng/mL Urine Protein 1+ H (Negative) Urine Ketones Trace H (Negative) Urine Blood Moderate H (Negative) Ur Leukocyte Esterase Small H (Negative) Urine RBC 62 H (0-5) /hpf Urine WBC 11 H (0-5) /hpf Amorphous Sediment Rare H (None) /hpf Urine Mucus Occasional H (None) /hpf 03/28/19 Range/Units 11:37 WBC (3.8-10.6) k/uL RBC (4.30-5.90) m/uL Hgb (13.0-17.5) gm/dL Hct (39.0-53.0) % RDW (11.5-15.5) % Neutrophils # (Manual) (1.3-7.7) k/uL Lymphocytes # (Manual) (1.0-4.8) k/uL Monocytes # (Manual) (0-1.0) k/uL ABG pCO2 (35-45) mmHg ABG pO2 (83-108) mmHg ABG HCO3 (21-25) mmol/L ABG Total CO2 (19-24) mmol/L ABG O2 Saturation (94-97) % Chloride (98-107) mmol/L Carbon Dioxide (22-30) mmol/L BUN (9-20) mg/dL Glucose (74-99) mg/dL POC Glucose (mg/dL) 114 H (75-99) mg/dL Calcium (8.4-10.2) mg/dL Phosphorus (2.5-4.5) mg/dL Magnesium (1.6-2.3) mg/dL AST (17-59) U/L Total Protein (6.3-8.2) g/dL Albumin (3.5-5.0) g/dL Procalcitonin (0.02-0.09) ng/mL Urine Protein (Negative) Urine Ketones (Negative) Urine Blood (Negative) Ur Leukocyte Esterase (Negative) Urine RBC (0-5) /hpf Urine WBC (0-5) /hpf Amorphous Sediment (None) /hpf Urine Mucus (None) /hpf Microbiology - Last 24 Hours (Table) 03/26/19 02:23 Gram Stain - Final Sputum Sputum Culture - Final 03/27/19 01:10 Blood Culture - Preliminary Blood No Growth after 24 hours 03/23/19 18:07 Blood Culture - Preliminary Blood No Growth after 96 hours Assessment and Plan Assessment: 1-patient was initially admitted hospital with abdominal pain from significant decrease in size of his lymphadenopathy with concern for possible compression of the intestine with component of ischemic colitis versus diverticulitis 2-patient with new fever after the patient did have significant change in his clinical condition with acute vent dependent respiratory failure with a possible component of aspiration pneumonitis Plan: 1-blood and sputum culture has been obtained which are negative so far 2-vancomycin pharmacy to dose target trough of 15 to continue along with cefepime and Flagyl pt fever resolved and pressor being weaned off Adjusting antibiotic further on the basis of culture report Time with Patient: Less than 30
[2019-03-29] MEDS: INSULIN ASPART (NovoLOG) 100 UNIT/ML VIAL SQ SCH ×4 (00:02→17:23)
[2019-03-29 00:05] LABS: Glucose,Whole Blood 148 mg/dL (75-99)
[2019-03-29] MEDS ORDERED: VANCOMYCIN TROUGH DUE 1 EACH MISC MISCELLANE ONE (01:00)
[2019-03-29] MEDS: NOREPINEPHRINE 4 MG in SODIUM CHLORIDE 0.9% 250 ML IV SCH ×2 (01:18→12:34)
[2019-03-29] MEDS: PROPOFOL 1,000 MG in EMPTY BAG 1 BAG IV SCH ×4 (02:55→21:31)
[2019-03-29] MEDS: VANCOMYCIN 1,500 MG in SODIUM CHLORIDE 0.9% 250 ML IVPB SCH ×3 (03:00→21:35)
[2019-03-29] MEDS: IPRATROPIUM-ALBUTEROL 3 ML NEB INHALATION SCH ×6 (03:04→23:42)
[2019-03-29 04:09] LABS: ABG Base Excess -3.8 mmol/L; ABG HCO3 20 mmol/L (21-25); ABG Oxygen Saturation 99.2 % (94-97); ABG PCO2 28 mmHg (35-45); ABG PH 7.46 (7.35-7.45); ABG PO2 163 mmHg (83-108); ABG TCO2 21 mmol/L (19-24)
[2019-03-29 05:09] LABS: Ionized Calcium 4.8 mg/dL (4.5-5.3)
[2019-03-29 05:21] LABS: Calcium 7.5 mg/dL (8.4-10.2); Phosphorus 2.5 mg/dL (2.5-4.5); Potassium 3.4 mmol/L (3.5-5.1)
[2019-03-29] MEDS ORDERED: Potassium Replacement Protocol 1 EACH MISC MISCELLANE PRN ×2 (05:25→18:49)
[2019-03-29 06:06] LABS: Glucose,Whole Blood 149 mg/dL (75-99)
[2019-03-29 06:17] LABS: Anisocytosis Slight; HCT 24.7 % (39.0-53.0); MCH 29.4 pg (25.0-35.0); MCHC 32.6 g/dL (31.0-37.0); Mean Platelet Volume 7.7; Platelet Count 170 k/uL (150-450); RBC 2.74 m/uL (4.30-5.90); RDW 18.4 % (11.5-15.5)
[2019-03-29] MEDS: POTASSIUM BICARBONATE/CIT AC 20 MEQ TABLET.EFF NG-TUBE SCH ×2 (06:17→09:26)
[2019-03-29 06:18] LABS: WBC 73.6 k/uL (3.8-10.6)
[2019-03-29 06:40] LABS: Eosinophils # (M) 0.74 k/uL (0-0.7); Hypochromasia (M) Present; Lymphocytes # (M) 58.88 k/uL (1.0-4.8); Monocytes # (M) 0.74 k/uL (0-1.0); Neutrophils # (M) 13.25 k/uL (1.3-7.7); Neutrophils % (M) 18 %; Nucleated Red Blood Cells 0 /100 WBC (0-0); Poikilocytosis (M) Present; Total Cells Counted 100
--- NOTE | 2019-03-29 08:01 | PN ---
PROGRESS NOTE Mr. Lee is an 78-year-old male with known history of paroxysmal atrial fibrillation, history of CLL, who presented with progressive abdominal discomfort and subsequently had hypotension and respiratory failure, requiring mechanical ventilation. He had evidence of non ST-segment elevation myocardial infarction. He converted in atrial fibrillation and subsequently yesterday, he was in sinus, but he is back in atrial fibrillation at this time. His ventricular response is controlled. He continued be on the IV amiodarone drip and as well as norepinephrine. His urine output is stable. He is getting TPN as well as tube feeding. He has evidence of sepsis and has been followed by Dr. Miller regarding his lung status. His medications at this time include the IV amiodarone drip, aspirin 81 mg daily, Lipitor 20 mg daily, Lasix 40 mg IV q.12 hours, metoprolol tartrate 12.5 mg twice a day. PHYSICAL EXAMINATION: Blood pressure 101/40 with the heart rate in the 80s. LUNGS: Decreased breath sounds anteriorly. No wheezes. HEART: Irregular, irregular. S1, S2. No S3. No rub. ABDOMEN: Soft. Positive bowel sounds. No organomegaly. EXTREMITIES: +1 edema. LAB DATA: Lab data revealed white blood cell of 73,000, hemoglobin of 8, platelet count of 170. BUN and creatinine 26 and 1.09. Potassium is 3.4. Chest x-ray shows evidence of infiltrate with a pleural effusion. IMPRESSION: 1. Respiratory failure with shock with an element of sepsis, probably septic shock with possible pneumonia. 2. Non ST-segment elevation myocardial infarction with moderate to severe ischemic cardiomyopathy. 3. Atrial fibrillation, rate controlled at this time. Patient had prior paroxysmal atrial fibrillation. 4. Severe anemia. RECOMMENDATION: I will switch him to oral amiodarone. Continue rest of his medical regimen. The patient will need to be anticoagulated if it is agreeable with the hematology oncology service. If they are agreeable, then I will switch him to Eliquis 5 mg twice a day. Will replace his potassium. Follow his lab data. The prognosis remains guarded. MMODL / IJN: [id number] /
--- NOTE | 2019-03-29 08:34 | XR ---
EXAMINATION TYPE: XR chest 1V portable DATE OF EXAM: 03/29/2019 COMPARISON: 03/28/2019 HISTORY: Endotracheal tube placement TECHNIQUE: Single frontal view of the chest is obtained. FINDINGS: Endotracheal tube and enteric tube as well as the left internal jugular central venous cat heter are similar in position with only very minimal retraction of the left central venous catheter. There is increasing confluence of the small right pleural effusion and right basilar airspace disease and overall stability of the trace left pleural effusion and left basilar airspace disease. Cardiome diastinal silhouette is partially obscured but appears stable. Osseous demineralization and degenerat yani changes of the glenohumeral joints and thoracic spine are again noted. No sizable pneumothorax. IMPRESSION: 1. Increasing small right pleural effusion and right basilar airspace disease and persistent left tra ce pleural effusion and left basilar airspace disease. 2. Similar placement of lines and tubes.
[2019-03-29] MEDS: AMIODARONE 300 MG in DEXTROSE 5% IN WATER 250 ML IV SCH ×2 (08:38)
[2019-03-29] MEDS: metroNIDAZOLE 500 MG TAB PO SCH ×3 (09:25→21:31)
[2019-03-29] MEDS: AMIODARONE 200 MG TAB PO SCH ×2 (09:25→21:29)
[2019-03-29] MEDS: ENOXAPARIN 40 MG/0.4 ML SYRINGE SQ SCH (09:26)
[2019-03-29] MEDS: ASPIRIN 81 MG PO SCH (09:26)
[2019-03-29] MEDS: METOPROLOL TARTRATE 12.5 MG TAB PO SCH ×2 (09:26→21:29)
[2019-03-29] MEDS: CHLORHEXIDINE GLUCONATE 15 ML CUP MUCOUS MEM SCH ×2 (09:26→21:29)
[2019-03-29] MEDS: FUROSEMIDE 10 MG/ML 4 ML VIAL IV SCH ×2 (09:26→21:29)
[2019-03-29] MEDS: CEFEPIME 2 GM in SODIUM CHLORIDE 0.9% 100 ML IVPB SCH ×2 (09:27→21:30)
[2019-03-29] MEDS: SODIUM CHLORIDE 0.9% 1,000 ML IV SCH (09:27)
[2019-03-29] MEDS: APIXABAN 5 MG TAB PO SCH ×2 (10:53→21:29)
[2019-03-29 11:51] LABS: Glucose,Whole Blood 162 mg/dL (75-99)
--- NOTE | 2019-03-29 13:02 | P.PN ---
Subjective Progress Note Date: 03/29/19 Principal diagnosis: Cardiopulmonary arrest, acute IN, Enlarging abdominal mass In follow-up today patient has family at the bedside, patient is being weaned off sedation, he did open his eyes on command, he did not move fingers or toes on command. Nurses said that he was tracking. Patient does respond to painful stimuli on the bottom of the foot Objective - Vital Signs Vital signs: Vital Signs Temp 98.3 F 03/29/19 12:00 Pulse 95 03/29/19 12:15 Resp 31 H 03/29/19 12:15 BP 99/65 03/29/19 09:00 Pulse Ox 99 03/29/19 12:15 Intake & Output 03/28/19 03/29/19 03/29/19 18:59 06:59 18:59 Intake Total 1325.691 3678.953 859.121 Output Total 1720 1770 780 Balance 189.833 -335.047 79.121 Weight 90 kg 91.7 kg 91.7 kg Intake: IV 657 542 290 Cefepime 2 gm In Sodium 100 100 100 Chloride 0.9% 100 ml @ 200 mls/hr IVPB Q12H [facility] Rx#:[id number] Mvi, Adult No.4 with Vit 120 K 10 ml Trace (Conc-1Ml/ Dose) 1 ml Sodium Acetate 30 meq Potassium Chloride 10 meq Potassium Phosphate 10 mmol Calcium Gluconate 1 gm In Amino Acid 5%-D15w 1,000 ml @ 30 mls/hr IV .Q24H [facility] Rx#:[id number] Pressure bags 0.9 72 72 30 Sodium Chloride 0.9% 1, 485 120 40 000 ml @ 5 mls/hr IV . Q24H [facility] Rx#:[id number] Vancomycin 1,500 mg In 250 Sodium Chloride 0.9% 250 ml @ 125 mls/hr IVPB Q16H [facility] Rx#:[id number] Intake, IV Titration 1042.833 497.953 469.121 Amount Amiodarone 300 mg In 250 212.5 Dextrose 5% in Water 250 ml @ 0.5 MG/MIN 25 mls/hr IV .Q10H [facility] Rx#: [id number] Mvi, Adult No.4 with Vit 150 30 K 10 ml Trace (Conc-1Ml/ Dose) 1 ml Sodium Acetate 30 meq Potassium Chloride 10 meq Potassium Phosphate 10 mmol Calcium Gluconate 1 gm In Amino Acid 5%-D15w 1,000 ml @ 60 mls/hr IV .BY DURATION [facility] Rx#: [id number] Norepinephrine 4 mg In 99.305 189.528 158.121 Sodium Chloride 0.9% 250 ml @ 0.05 MCG/KG/MIN 15. 122 mls/hr IV .[id number] [facility] Rx#:[id number] Propofol 1,000 mg In 293.528 278.425 98.500 Empty Bag 1 bag @ Titrate IV .Q0M [facility] Rx#: [id number] Vancomycin 1,500 mg In 250 Sodium Chloride 0.9% 250 ml @ 125 mls/hr IVPB Q16H [facility] Rx#:[id number] Tube Feeding 120 305 90 Lipid 10 Sodium Chloride 0.9% 1, 10 000 ml @ 5 mls/hr IV . Q24H [facility] Rx#:[id number] Other 90 90 Output: Urine 1720 1770 780 Other: Voiding Method Indwelling Catheter Indwelling Catheter Indwelling Catheter ABP, PAP, CO, CI - Last Documented Arterial Blood Pressure 119/59 - Exam Well-developed, well-nourished male, mechanically ventilated and sedated, sedation being weaned off, patient did respond to verbal commands to open his eyes, nursing states tracking, patient did withdrawal foot from painful stimuli, generalized, moderate anasarca, pitting, bilateral upper extremity bruising, Merritt catheter collection device is overflowing with large quantities of clear, yellow urine, blood pressure improved, heart rate improved on monitor - Labs CBC & Chem 7: 03/29/19 04:44 03/29/19 04:44 Labs: Abnormal Lab Results - Last 24 Hours (Table) 03/28/19 03/28/19 03/29/19 Range/Units 17:02 23:53 04:32 WBC (3.8-10.6) k/uL RBC (4.30-5.90) m/uL Hgb (13.0-17.5) gm/dL Hct (39.0-53.0) % RDW (11.5-15.5) % Neutrophils # (Manual) (1.3-7.7) k/uL Lymphocytes # (Manual) (1.0-4.8) k/uL Eosinophils # (Manual) (0-0.7) k/uL ABG pH 7.46 H (7.35-7.45) ABG pCO2 28 L (35-45) mmHg ABG pO2 163 H (83-108) mmHg ABG HCO3 20 L (21-25) mmol/L ABG O2 Saturation 99.2 H (94-97) % Potassium (3.5-5.1) mmol/L Chloride (98-107) mmol/L Carbon Dioxide (22-30) mmol/L BUN (9-20) mg/dL Glucose (74-99) mg/dL POC Glucose (mg/dL) 147 H 148 H (75-99) mg/dL Calcium (8.4-10.2) mg/dL 03/29/19 03/29/19 03/29/19 Range/Units 04:44 04:44 05:55 WBC 73.6 H* (3.8-10.6) k/uL RBC 2.74 L (4.30-5.90) m/uL Hgb 8.0 L (13.0-17.5) gm/dL Hct 24.7 L (39.0-53.0) % RDW 18.4 H (11.5-15.5) % Neutrophils # (Manual) 13.25 H (1.3-7.7) k/uL Lymphocytes # (Manual) 58.88 H (1.0-4.8) k/uL Eosinophils # (Manual) 0.74 H (0-0.7) k/uL ABG pH (7.35-7.45) ABG pCO2 (35-45) mmHg ABG pO2 (83-108) mmHg ABG HCO3 (21-25) mmol/L ABG O2 Saturation (94-97) % Potassium 3.4 L (3.5-5.1) mmol/L Chloride 115 H (98-107) mmol/L Carbon Dioxide 19 L (22-30) mmol/L BUN 26 H (9-20) mg/dL Glucose 135 H (74-99) mg/dL POC Glucose (mg/dL) 149 H (75-99) mg/dL Calcium 7.5 L (8.4-10.2) mg/dL 03/29/19 Range/Units 11:38 WBC (3.8-10.6) k/uL RBC (4.30-5.90) m/uL Hgb (13.0-17.5) gm/dL Hct (39.0-53.0) % RDW (11.5-15.5) % Neutrophils # (Manual) (1.3-7.7) k/uL Lymphocytes # (Manual) (1.0-4.8) k/uL Eosinophils # (Manual) (0-0.7) k/uL ABG pH (7.35-7.45) ABG pCO2 (35-45) mmHg ABG pO2 (83-108) mmHg ABG HCO3 (21-25) mmol/L ABG O2 Saturation (94-97) % Potassium (3.5-5.1) mmol/L Chloride (98-107) mmol/L Carbon Dioxide (22-30) mmol/L BUN (9-20) mg/dL Glucose (74-99) mg/dL POC Glucose (mg/dL) 162 H (75-99) mg/dL Calcium (8.4-10.2) mg/dL Microbiology - Last 24 Hours (Table) 03/27/19 01:10 Blood Culture - Preliminary Blood No Growth after 48 hours 03/23/19 18:07 Blood Culture - Preliminary Blood No Growth after 120 hours 03/28/19 10:55 Urine Culture - Preliminary Urine,Voided 03/26/19 02:23 Gram Stain - Final Sputum Sputum Culture - Final Assessment and Plan (1) Acute respiratory failure with hypoxia Narrative/Plan: Critical care team management. Patient's vital signs look good, sedative medications are being titrated down. Current Visit: Yes Status: Acute Priority: High Code(s): J96.01 - ACUTE RESPIRATORY FAILURE WITH HYPOXIA SNOMED Code(s): 98909726 (2) Acute non-ST elevation myocardial infarction (NSTEMI) Narrative/Plan: Medical management per Cardiology. Cardiology notes reviewed. Wanting recommendations regarding anticoagulation for atrial fibrillation. Okay to start with heparin drip if immediately necessary. If okay would prefer waiting until biopsy obtained of abdominal adenopathy. We will try to plan for this sooner than later. 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 Prior to initiation of treatment a core biopsy is necessary to determine what disease we will be treating. Further workup for leukocytosis is pending discontinuation of mechanical ventilation. Current Visit: Yes Status: Acute Priority: Medium Code(s): D72.829 - ELEVATED WHITE BLOOD CELL COUNT, UNSPECIFIED SNOMED Code(s): 901839794 Plan: Dr. Hernandez once again discussed with patient's family his very guarded situation. It is still felt to be reasonable to continue to treat aggressively. Critical Care team is pending weaning from ventilator. Previous discussions included that if pt cannot be removed from cardiopulmonary support successfully then comfort only approach will be recommended, family previously acknowledged. If patient is able to be weaned we will begin workup and treatment for the abdominal mass/suspect leukemia. Doctor attests: I performed a history and physical examination of this patient with dictator. I have developed impression and plan, I agree with dictators note, documented as a scribe.
--- NOTE | 2019-03-29 13:03 | P.PN ---
Subjective Progress Note Date: 03/29/19 Patient still on ventilator, previously sedated on propofol which is now being weaned to off and is slowly and gradually arousing, the patient doing well with tube feeds high-protein with low residuals, the patient converted back to A. fib that is rate controlled. Blood pressure appears much improved weaning IV pressor levophed down to off gradually. White count coming down to 73, 000 today, patient afebrile. Objective - Vital Signs Vital signs: Vital Signs Temp 98.3 F 03/29/19 12:00 Pulse 95 03/29/19 12:15 Resp 31 H 03/29/19 12:15 BP 99/65 03/29/19 09:00 Pulse Ox 99 03/29/19 12:15 Intake & Output 03/28/19 03/29/19 03/29/19 18:59 06:59 18:59 Intake Total 0737.196 1806.953 859.121 Output Total 1720 1770 780 Balance 189.833 -335.047 79.121 Weight 90 kg 91.7 kg 91.7 kg Intake: IV 657 542 290 Cefepime 2 gm In Sodium 100 100 100 Chloride 0.9% 100 ml @ 200 mls/hr IVPB Q12H [facility] Rx#:[id number] Mvi, Adult No.4 with Vit 120 K 10 ml Trace (Conc-1Ml/ Dose) 1 ml Sodium Acetate 30 meq Potassium Chloride 10 meq Potassium Phosphate 10 mmol Calcium Gluconate 1 gm In Amino Acid 5%-D15w 1,000 ml @ 30 mls/hr IV .Q24H [facility] Rx#:[id number] Pressure bags 0.9 72 72 30 Sodium Chloride 0.9% 1, 485 120 40 000 ml @ 5 mls/hr IV . Q24H [facility] Rx#:[id number] Vancomycin 1,500 mg In 250 Sodium Chloride 0.9% 250 ml @ 125 mls/hr IVPB Q16H [facility] Rx#:[id number] Intake, IV Titration 1042.833 497.953 469.121 Amount Amiodarone 300 mg In 250 212.5 Dextrose 5% in Water 250 ml @ 0.5 MG/MIN 25 mls/hr IV .Q10H [facility] Rx#: [id number] Mvi, Adult No.4 with Vit 150 30 K 10 ml Trace (Conc-1Ml/ Dose) 1 ml Sodium Acetate 30 meq Potassium Chloride 10 meq Potassium Phosphate 10 mmol Calcium Gluconate 1 gm In Amino Acid 5%-D15w 1,000 ml @ 60 mls/hr IV .BY DURATION [facility] Rx#: [id number] Norepinephrine 4 mg In 99.305 189.528 158.121 Sodium Chloride 0.9% 250 ml @ 0.05 MCG/KG/MIN 15. 122 mls/hr IV .[id number] [facility] Rx#:[id number] Propofol 1,000 mg In 293.528 278.425 98.500 Empty Bag 1 bag @ Titrate IV .Q0M [facility] Rx#: [id number] Vancomycin 1,500 mg In 250 Sodium Chloride 0.9% 250 ml @ 125 mls/hr IVPB Q16H [facility] Rx#:[id number] Tube Feeding 120 305 90 Lipid 10 Sodium Chloride 0.9% 1, 10 000 ml @ 5 mls/hr IV . Q24H [facility] Rx#:[id number] Other 90 90 Output: Urine 1720 1770 780 Other: Voiding Method Indwelling Catheter Indwelling Catheter Indwelling Catheter ABP, PAP, CO, CI - Last Documented Arterial Blood Pressure 119/59 - Exam Constitutional: No acute distress, conversant, pleasant Eyes: Anicteric sclerae, moist conjunctiva, no lid-lag, PERRLA ENMT: NC/AT,Oropharynx clear, no erythema, exudates Neck:Supple, FROM, no masses, or JVD, No carotid bruits; No thyromegaly, left IJ in place, Og/OT tube in place Lungs: Diminished in the bases bilaterally otherwise equal and symmetric Cardiovascular: Heart regular in rate and rhythm, No murmurs, gallops, or rubs no peripheral edema Abdominal: Soft Nontender, nom distended, no guarding, no rebound or rigidity, Normoactive bowel sounds No hepatomegaly, No splenomegaly, No palpable mass No abdominal wall hernia noted Skin: Normal temperature, tone, texture, turgor, No induration No subcutaneous nodules, No rash, lesions, No ulcers Extremities:No digital cyanosis No clubbing, Pedal pulses intact and symmetrical Radial pulses intact and symmetrical Normal gait and station, No calf tenderness Neuro: Sedated on propofol currently on mechanical ventilator, pupils are reactive to light, no seizure activity - Labs CBC & Chem 7: 03/29/19 04:44 03/29/19 04:44 Labs: Abnormal Lab Results - Last 24 Hours (Table) 03/28/19 03/28/19 03/29/19 Range/Units 17:02 23:53 04:32 WBC (3.8-10.6) k/uL RBC (4.30-5.90) m/uL Hgb (13.0-17.5) gm/dL Hct (39.0-53.0) % RDW (11.5-15.5) % Neutrophils # (Manual) (1.3-7.7) k/uL Lymphocytes # (Manual) (1.0-4.8) k/uL Eosinophils # (Manual) (0-0.7) k/uL ABG pH 7.46 H (7.35-7.45) ABG pCO2 28 L (35-45) mmHg ABG pO2 163 H (83-108) mmHg ABG HCO3 20 L (21-25) mmol/L ABG O2 Saturation 99.2 H (94-97) % Potassium (3.5-5.1) mmol/L Chloride (98-107) mmol/L Carbon Dioxide (22-30) mmol/L BUN (9-20) mg/dL Glucose (74-99) mg/dL POC Glucose (mg/dL) 147 H 148 H (75-99) mg/dL Calcium (8.4-10.2) mg/dL 03/29/19 03/29/19 03/29/19 Range/Units 04:44 04:44 05:55 WBC 73.6 H* (3.8-10.6) k/uL RBC 2.74 L (4.30-5.90) m/uL Hgb 8.0 L (13.0-17.5) gm/dL Hct 24.7 L (39.0-53.0) % RDW 18.4 H (11.5-15.5) % Neutrophils # (Manual) 13.25 H (1.3-7.7) k/uL Lymphocytes # (Manual) 58.88 H (1.0-4.8) k/uL Eosinophils # (Manual) 0.74 H (0-0.7) k/uL ABG pH (7.35-7.45) ABG pCO2 (35-45) mmHg ABG pO2 (83-108) mmHg ABG HCO3 (21-25) mmol/L ABG O2 Saturation (94-97) % Potassium 3.4 L (3.5-5.1) mmol/L Chloride 115 H (98-107) mmol/L Carbon Dioxide 19 L (22-30) mmol/L BUN 26 H (9-20) mg/dL Glucose 135 H (74-99) mg/dL POC Glucose (mg/dL) 149 H (75-99) mg/dL Calcium 7.5 L (8.4-10.2) mg/dL 03/29/19 Range/Units 11:38 WBC (3.8-10.6) k/uL RBC (4.30-5.90) m/uL Hgb (13.0-17.5) gm/dL Hct (39.0-53.0) % RDW (11.5-15.5) % Neutrophils # (Manual) (1.3-7.7) k/uL Lymphocytes # (Manual) (1.0-4.8) k/uL Eosinophils # (Manual) (0-0.7) k/uL ABG pH (7.35-7.45) ABG pCO2 (35-45) mmHg ABG pO2 (83-108) mmHg ABG HCO3 (21-25) mmol/L ABG O2 Saturation (94-97) % Potassium (3.5-5.1) mmol/L Chloride (98-107) mmol/L Carbon Dioxide (22-30) mmol/L BUN (9-20) mg/dL Glucose (74-99) mg/dL POC Glucose (mg/dL) 162 H (75-99) mg/dL Calcium (8.4-10.2) mg/dL Microbiology - Last 24 Hours (Table) 03/27/19 01:10 Blood Culture - Preliminary Blood No Growth after 48 hours 03/23/19 18:07 Blood Culture - Preliminary Blood No Growth after 120 hours 03/28/19 10:55 Urine Culture - Preliminary Urine,Voided 03/26/19 02:23 Gram Stain - Final Sputum Sputum Culture - Final Assessment and Plan (1) Shock Narrative/Plan: * Multifactorial due to cardiogenic secondary to non-STEMI with ICM superimposed on septic shock due PNA and intrabdominal pathology * Patient continued on IV pressors currently down to 4 g of levophed , CVP 8-9 * Continued on broad-spectrum antibiotics with cefepime and vancomycin and Flagyl Current Visit: Yes Status: Acute Code(s): R57.9 - SHOCK, UNSPECIFIED SNOMED Code(s): 13432104 (2) Acute respiratory failure with hypoxia Narrative/Plan: * Secondary to septic shock with superimposed by basilar pneumonia * Continued on mechanical ventilation per pulmonary critical care * ABG pH of 7.46 with a pCO2 of 28 and pO2 of 163 on FiO2 40% and Tidal Vol 600 with chest x-ray today showing increasing right small pleural effusion and right basilar airspace disease and persistent left trace pleural effusion and left basilar airspace disease * Continue scheduled and when necessary DuoNeb bronchodilator breathing treatments, patient sedated on propofol currently being weaned off Current Visit: Yes Status: Acute Priority: High Code(s): J96.01 - ACUTE RESPIRATORY FAILURE WITH HYPOXIA SNOMED Code(s): 05611619 (3) Non-STEMI (non-ST elevated myocardial infarction) Narrative/Plan: * Initial troponin less than 0.012. EKG ordered yesterday for concerns of tachycardia, with ST depression, troponin reordered to rule out ACS. * Repeat troponin 3.650, 8.210, 20.4, 31. Possibly related to true cardiac event from severe anemia and hypotension. * Echocardiogram shows EF 35-40% with hypokinetic wall motion. * Continue Telemetry monitoring. Continue aspirin. As per Dr. Rajput, not candidate for aggressive cardiac workup. Follow cardiology recommendations. No heparin due to severe anemia. Current Visit: Yes Status: Acute Code(s): I21.4 - NON-ST ELEVATION (NSTEMI) MYOCARDIAL INFARCTION SNOMED Code(s): 05894421 (4) Ischemic cardiomyopathy Current Visit: Yes Status: Acute Code(s): I25.5 - ISCHEMIC CARDIOMYOPATHY SNOMED Code(s): 480440433 (5) Chronic a-fib Narrative/Plan: * Currently rate controlled. Plan: Continue metoprolol. Continue Propafenone. Started on amiodarone drip. * No anticoagulation due to severe anemia. K > 4 and Mg > 2. Follow cardiology recommendations. Current Visit: Yes Status: Acute Code(s): I48.2 - CHRONIC ATRIAL FIBRILLATION SNOMED Code(s): 922460575 (6) Leukocytosis Narrative/Plan: * CLL superimposed on sepsis Current Visit: Yes Status: Acute Priority: Medium Code(s): D72.829 - ELEVATED WHITE BLOOD CELL COUNT, UNSPECIFIED SNOMED Code(s): 306643481 Plan: Disposition * Plan to titrate up high protein tube feeds * Appreciate consultants recommendations, continue to monitor daily and update family with plan of care Patient critical family aware *
[2019-03-29] MEDS: MVI, ADULT NO.4 WITH VIT K 10 ML, TRACE (CONC-1ML/DOSE) 1 ML, SODIUM ACETATE 30 MEQ, PO... IV SCH ×7 (14:54)
--- NOTE | 2019-03-29 15:00 | P.PN ---
Subjective Progress Note Date: 03/29/19 On today's evaluation of 03/27/2019 I'm seeing this patient for a follow-up. The patient is currently intubated on a mechanical ventilator. The patient is known history of CLL receiving FOLFOX treatment on outpatient basis.. The patient came in for increased abdominal pain and subsequently the patient went into respiratory failure and hemodynamic collapse. The patient suffered an acute non-ST segment elevation myocardial infarction and troponin peaked at 31. Cardiology is on the case This morning, the patient was sedated with propofol at 50 g per KG per minute. The patient is intubated on a mechanical ventilator. Earlier this morning the patient was on a volume cycle mode of ventilation with a tidal volume of 600 with a rate of 20, FiO2 of 40% and a PEEP of 5. The patient is intubated with a #8 ET tube. The blood gases from this morning showed a pH of 7.39 with a pCO2 of 28 and pO2 of 147. The patient was still having higher tidal volumes and is minute ventilation was quite elevated. Based on all this, I increased his tidal volume of 2 600 which made the patient much more comfortable and sickness with a mechanical ventilator. The patient is afebrile. The patient is hypotensive and earlier this morning he was on norepinephrine infusion running at a rate of 21 mcg/m. His urine output is in order of 60 mL an hour. The patient is on IV fluids at 0.9 at the rate of 100 mL an hour. The patient is in atrial fibrillation. He is on an amiodarone drip at 0.5 g per minute as a maintenance. He has a left IJ triple-lumen catheter and the CVP is in the range of 8 and 9 mmHg. The patient had a chest x-ray this morning that showed bilateral basilar infiltrates and bilateral pleural effusions are small. The patient also had some mild cardiomegaly. ET tube was lying low with a tip being around 1. 6 cm above the pavel. The patient remains nothing by mouth. He remains well covered with a combination of cefepime and Flagyl and vancomycin as broad-spectrum antibiotic coverage. Urine culture from 2018 has been negative. Sputum culture from 03/26/2019 is negative and the blood culture from 516 has been negative and the repeat blood culture was sent on 03/27/2019. Hematologic profile was quite abnormal and then consistent with the patient's history of CLL. Hemoglobin is at 7.3 with a platelet count of 149 and a white cell count of 82.3. Anything else no abdominal distention. OG tube is in place and there is no significant drainage from the orogastric tube. Echocardiogram showed segmental wall motion abnormalities along with an ejection fraction of 35-40%. On 03/28/2019 I'm seeing this patient for a follow-up. He was intubated sedated on a mechanical ventilator. The patient is currently on assist control mode of ventilation with a tidal volume of 6000 and FiO2 of 40% with a PEEP of 5 and the rate of 20. Blood gases from today showed a pH of 7.38 with a pCO2 of 27 and pO2 of 159. His chest x-ray still showing bilateral pulmonary infiltrates and cardiomegaly and ET tube is in good location. The patient is producing good urine output and the fluid balance over the past 24 hours has been +3.8 L. He has converted back into normal sinus rhythm. He is on low-dose norepinephrine infusion which is running at 4-5 g per minute. Antibiotic coverage includes a combination of cefepime and vancomycin. He is also on Flagyl. He had a low- grade temperature yesterday with a T-max of 100.2 and currently he is afebrile. He remains nothing by mouth. No significant output from his orogastric tube. No significant abdominal distention. Bowel sounds are hypoactive, nearly absent yet there is no abdominal distention. His echo cardiac damage showed an ejection fraction of 35-40% along with segmental wall motion abnormalities. He is receiving IV fluids at the rate of 100 mL an hour. Discussed the case with cardiology. Discussed the case with oncology. On 03/29/2019 the patient remains intubated on a mechanical ventilator. The patient is sedated with propofol. He is calm and comfortable. Propofol is running at 40 mics. Remains on a mechanical ventilator. Essentially on the same vent setting. Tidal volumes at 6000 with an FiO2 of 40% and PEEP of 5. Blood gas shows further improvement in oxygenation. The pH is at 7.46 and a pCO2 of 28 and pO2 of 163. The patient is a component of acute respiratory alkalosis. Chest x-ray still showing better pulmonary infiltrates and effusion lung bases bilaterally consistent with CHF. The patient is afebrile. Hemodynamically, the patient is on few echograms of norepinephrine infusion for blood pressure support. The patient is producing adequate amount of urine outpu t. The patient was started on IV Lasix. The patient is eating push towards a negative fluid balance over the next 24 hours. The cardiac rhythm is back to atrial fibrillation. The patient was seen again by cardiology. The rate is controlled for now and the patient is on 400 mg of amiodarone by mouth twice a day and metoprolol 12.5 mg by mouth twice a day and Eliquis for long-term anticoagulation was also started. We are hoping to achieve a negative fluid balance over the next 24 hours. Meanwhile, I'm willing to give this patient a sedation holiday and assess his underlying neuro status while being off sedation. He is afebrile. All of the cultures of negative. He is on a broad-spectrum antibiotic coverage utilizing a combination of cefepime and vancomycin. He is also on Flagyl. The patient was started on enteral feeding for nutritional support at the rate of 20 mL an hour of vital high protein. He was able to tolerate that without any significant residual pain no abdominal d istention pain no bowel movements yet. We are going to advance the tube feeds and hold the TPN for now and we're going to continue the current TPN bag and stop it following that as the patient seems to be tolerating tube feeds for the time being. Family is at the bedside. The condition was extended to them at length. IV fluids are currently at [facility]. Objective - Vital Signs Vital signs: Vital Signs Temp 98.3 F 03/29/19 12:00 Pulse 89 03/29/19 14:00 Resp 25 H 03/29/19 14:00 BP 114/75 03/29/19 14:00 Pulse Ox 99 03/29/19 14:00 Intake & Output 03/28/19 03/29/19 03/29/19 18:59 06:59 18:59 Intake Total 7242.611 0344.953 1118.621 Output Total 1720 1770 1400 Balance 189.833 -335.047 -281.379 Weight 90 kg 91.7 kg 91.7 kg Intake: IV 657 542 428 Cefepime 2 gm In Sodium 100 100 100 Chloride 0.9% 100 ml @ 200 mls/hr IVPB Q12H [facility] Rx#:[id number] Mvi, Adult No.4 with Vit 210 K 10 ml Trace (Conc-1Ml/ Dose) 1 ml Sodium Acetate 30 meq Potassium Chloride 10 meq Potassium Phosphate 10 mmol Calcium Gluconate 1 gm In Amino Acid 5%-D15w 1,000 ml @ 30 mls/hr IV .Q24H [facility] Rx#:[id number] Pressure bags 0.9 72 72 48 Sodium Chloride 0.9% 1, 485 120 70 000 ml @ 5 mls/hr IV . Q24H [facility] Rx#:[id number] Vancomycin 1,500 mg In 250 Sodium Chloride 0.9% 250 ml @ 125 mls/hr IVPB Q16H [facility] Rx#:[id number] Intake, IV Titration 1042.833 497.953 470.621 Amount Amiodarone 300 mg In 250 212.5 Dextrose 5% in Water 250 ml @ 0.5 MG/MIN 25 mls/hr IV .Q10H [facility] Rx#: [id number] Mvi, Adult No.4 with Vit 150 30 K 10 ml Trace (Conc-1Ml/ Dose) 1 ml Sodium Acetate 30 meq Potassium Chloride 10 meq Potassium Phosphate 10 mmol Calcium Gluconate 1 gm In Amino Acid 5%-D15w 1,000 ml @ 60 mls/hr IV .BY DURATION [facility] Rx#: [id number] Norepinephrine 4 mg In 99.305 189.528 158.121 Sodium Chloride 0.9% 250 ml @ 0.05 MCG/KG/MIN 15. 122 mls/hr IV .[id number] [facility] Rx#:[id number] Propofol 1,000 mg In 293.528 278.425 100.000 Empty Bag 1 bag @ Titrate IV .Q0M [facility] Rx#: [id number] Vancomycin 1,500 mg In 250 Sodium Chloride 0.9% 250 ml @ 125 mls/hr IVPB Q16H [facility] Rx#:[id number] Tube Feeding 120 305 210 Lipid 10 Sodium Chloride 0.9% 1, 10 000 ml @ 5 mls/hr IV . Q24H [facility] Rx#:[id number] Other 90 90 Output: Urine 1720 1770 1400 Other: Voiding Method Indwelling Catheter Indwelling Catheter Indwelling Catheter ABP, PAP, CO, CI - Last Documented Arterial Blood Pressure 120/59 - Exam Gen. appearance, comfortable sedated intubated on a mechanical ventilator and the patient is synchronous with the mechanical ventilation. Head exam was generally normal. There was no scleral icterus or corneal arcus. Mucous membranes were moist. Neck was supple and without jugular venous distension, thyromegaly, or carotid bruits. Carotids were easily palpable bilaterally. There was no adenopathy. The patient has an orogastric and orotracheal tube are both of them are in place and the patient has a left IJ triple-lumen catheter. Lungs sounds are diminished bilaterally. Breath sounds are otherwise equal and symmetrical. Heart sounds are irregular S1-S2 consistent with atrial fibrillation. No significant murmurs appreciated. No right ventricular heave or thrill. Abdominal exam revealed normal bowel sounds. The abdomen was soft, non-tender, and without masses, organomegaly, or appreciable enlargement of the abdominal aorta. Extremities are warm. There is equal and symmetrical pulses in lower extremities bilaterally with +1 pulses. No cyanosis. No clubbing. Neurologically the patient is sedated, comfortable. Synchronous with the mechanical ventilator. Pupils are equal and reactive to light. No facial asymmetry. No seizure activity has been noted. Examination of the skin revealed no evidence of significant rashes, suspicious appearing nevi or other concerning lesions. - Labs CBC & Chem 7: 03/29/19 04:44 03/29/19 04:44 Labs: Abnormal Lab Results - Last 24 Hours (Table) 03/28/19 03/28/19 03/29/19 Range/Units 17:02 23:53 04:32 WBC (3.8-10.6) k/uL RBC (4.30-5.90) m/uL Hgb (13.0-17.5) gm/dL Hct (39.0-53.0) % RDW (11.5-15.5) % Neutrophils # (Manual) (1.3-7.7) k/uL Lymphocytes # (Manual) (1.0-4.8) k/uL Eosinophils # (Manual) (0-0.7) k/uL ABG pH 7.46 H (7.35-7.45) ABG pCO2 28 L (35-45) mmHg ABG pO2 163 H (83-108) mmHg ABG HCO3 20 L (21-25) mmol/L ABG O2 Saturation 99.2 H (94-97) % Potassium (3.5-5.1) mmol/L Chloride (98-107) mmol/L Carbon Dioxide (22-30) mmol/L BUN (9-20) mg/dL Glucose (74-99) mg/dL POC Glucose (mg/dL) 147 H 148 H (75-99) mg/dL Calcium (8.4-10.2) mg/dL 03/29/19 03/29/19 03/29/19 Range/Units 04:44 04:44 05:55 WBC 73.6 H* (3.8-10.6) k/uL RBC 2.74 L (4.30-5.90) m/uL Hgb 8.0 L (13.0-17.5) gm/dL Hct 24.7 L (39.0-53.0) % RDW 18.4 H (11.5-15.5) % Neutrophils # (Manual) 13.25 H (1.3-7.7) k/uL Lymphocytes # (Manual) 58.88 H (1.0-4.8) k/uL Eosinophils # (Manual) 0.74 H (0-0.7) k/uL ABG pH (7.35-7.45) ABG pCO2 (35-45) mmHg ABG pO2 (83-108) mmHg ABG HCO3 (21-25) mmol/L ABG O2 Saturation (94-97) % Potassium 3.4 L (3.5-5.1) mmol/L Chloride 115 H (98-107) mmol/L Carbon Dioxide 19 L (22-30) mmol/L BUN 26 H (9-20) mg/dL Glucose 135 H (74-99) mg/dL POC Glucose (mg/dL) 149 H (75-99) mg/dL Calcium 7.5 L (8.4-10.2) mg/dL 03/29/19 Range/Units 11:38 WBC (3.8-10.6) k/uL RBC (4.30-5.90) m/uL Hgb (13.0-17.5) gm/dL Hct (39.0-53.0) % RDW (11.5-15.5) % Neutrophils # (Manual) (1.3-7.7) k/uL Lymphocytes # (Manual) (1.0-4.8) k/uL Eosinophils # (Manual) (0-0.7) k/uL ABG pH (7.35-7.45) ABG pCO2 (35-45) mmHg ABG pO2 (83-108) mmHg ABG HCO3 (21-25) mmol/L ABG O2 Saturation (94-97) % Potassium (3.5-5.1) mmol/L Chloride (98-107) mmol/L Carbon Dioxide (22-30) mmol/L BUN (9-20) mg/dL Glucose (74-99) mg/dL POC Glucose (mg/dL) 162 H (75-99) mg/dL Calcium (8.4-10.2) mg/dL Microbiology - Last 24 Hours (Table) 03/28/19 10:55 Urine Culture - Final Urine,Voided 03/27/19 01:10 Blood Culture - Preliminary Blood No Growth after 48 hours 03/23/19 18:07 Blood Culture - Preliminary Blood No Growth after 120 hours Assessment and Plan Plan: 1 shock with profound hypotension currently on pressors. The patient had a acute non-ST segment elevation myocardial infarction. The patient could be also potentially septic and this shock could be a combination of cardiac and septic in nature. After being aggressively resuscitated IV fluids, the patient is on few mics of levo fed for now and we are going to start the patient on diuretics as the patient has L of signs of fluid overload and addition to bilateral pleural effusion. Hemodynamically, he is requiring pressors with norepinephrine infusion running between 4-8 g per minute. 2 acute hypoxic respiratory failure currently intubated on mechanical ventilator. The patient's chest x-ray showing bilateral lower lobe pulmonary infiltrates and small bilateral pleural effusions, chest x-ray from today is unchanged compared to yesterday and there is still persistent [place] pleural effusions [id number] in size. 3 acute non-ST segment elevation myocardial infarction 4 CHF ischemic in nature with ejection fraction of 35% and segmental wall motion abnormalities. 5 chronic atrial fibrillation currently on amiodarone which 2 by mouth 400 mg by mouth twice a day. The patient is also on metoprolol 12.5 mg twice a day. And to coagulation was also started. Noted the patient was being on and off found to be in normal sinus rhythm. Earlier this morning he is in atrial fibrillation with a controlled rate. 6 history of chronic lymphocytic leukemia with significant enlargement of the intra-abdominal lymphadenopathy causing some mass effect in the abdominal structures including the bowel and the kidneys 7 hematologic abnormalities with an abnormal hematologic profile consistent with CLL. The patient has lymphocytosis, thrombocytopenia and anemia. The patient's counts have been stable. The white cell count remains elevated essentially lymphocytosis in addition to a stable hemoglobin is stable platelet count. 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 Doppler the volume to 500. Keep the rest of the vent settings changed for the time being. The chest x-ray was reviewed and the findings are essentially stable. I'm hoping to diabetes this patient over the next 24 hours and I'm hoping that he will tolerate diuretics while maintaining a decent blood pressure. We are going to titrate edema fed dose to maintain a mean artery pressure above 65. Is producing adequate amount of urine output. Continue same antibiotic coverage. Cultures of been all negative. His rate is back into atrial fibrillation at the controlled rate. He is on metoprolol and amiodarone. He is on Eliquis and this was started today. TPN will be disc ontinued and we will going to advance his enteral feeding and the Nu Gauze at 50 mL an hour. The patient will be given a sedation holiday and we'll going to assess his underlying mental status. His condition is critical. We'll continue to follow make further recommendations based on his progress. Critically care evaluation done more than 30 minutes. Time with Patient: Greater than 30
[2019-03-29 17:25] LABS: Glucose,Whole Blood 141 mg/dL (75-99)
[2019-03-29] MEDS: ATORVASTATIN 20 MG TAB PO SCH (21:29)
[2019-03-29] MEDS: POTASSIUM CHLORIDE 20 MEQ in WATER FOR INJECTION 1 100ML.BAG IVPB SCH (21:33)
--- NOTE | 2019-03-29 21:53 | P.PN ---
Subjective Progress Note Date: 03/29/19 Principal diagnosis: Sepsis and possible aspiration pneumonia and diverticulitis Patient initially admitted hospital with abdominal pain in this patient did have significant increase in size of abdominal lymphadenopathy and possible component of diverticulitis patient was transferred to the ICU because of hypotension , morning of 03/26/2019 the patient did have significant change in his clinical condition and the patient ripped off his IV and leads subsequently did have sign ificant drop in the blood pressure and respiratory distress patient ended up getting intubated on 03/26/2019. On today's evaluation that is 03/29/2019, the patient remains to be afebrile , the patient FiO2 is stable and the patient pressor are slowly weaned off , the patient has been started on tube feeds and no diarrhea reported by the nursing staff, the patient sedation is currently being weaned off Objective - Vital Signs Vital signs: Vital Signs Temp 98.0 F 03/29/19 08:00 Pulse 95 03/29/19 11:04 Resp 27 H 03/29/19 11:00 BP 99/65 03/29/19 09:00 Pulse Ox 99 03/29/19 11:00 Intake & Output 03/28/19 03/29/19 03/29/19 18:59 06:59 18:59 Intake Total 7641.041 2787.953 776.911 Output Total 1720 1770 780 Balance 189.833 -335.047 -3.089 Weight 90 kg 91.7 kg 91.7 kg Intake: IV 657 542 290 Cefepime 2 gm In Sodium 100 100 100 Chloride 0.9% 100 ml @ 200 mls/hr IVPB Q12H [facility] Rx#:[id number] Mvi, Adult No.4 with Vit 120 K 10 ml Trace (Conc-1Ml/ Dose) 1 ml Sodium Acetate 30 meq Potassium Chloride 10 meq Potassium Phosphate 10 mmol Calcium Gluconate 1 gm In Amino Acid 5%-D15w 1,000 ml @ 30 mls/hr IV .Q24H [facility] Rx#:[id number] Pressure bags 0.9 72 72 30 Sodium Chloride 0.9% 1, 485 120 40 000 ml @ 5 mls/hr IV . Q24H [facility] Rx#:[id number] Vancomycin 1,500 mg In 250 Sodium Chloride 0.9% 250 ml @ 125 mls/hr IVPB Q16H [facility] Rx#:[id number] Intake, IV Titration 1042.833 497.953 386.911 Amount Amiodarone 300 mg In 250 212.5 Dextrose 5% in Water 250 ml @ 0.5 MG/MIN 25 mls/hr IV .Q10H [facility] Rx#: [id number] Mvi, Adult No.4 with Vit 150 30 K 10 ml Trace (Conc-1Ml/ Dose) 1 ml Sodium Acetate 30 meq Potassium Chloride 10 meq Potassium Phosphate 10 mmol Calcium Gluconate 1 gm In Amino Acid 5%-D15w 1,000 ml @ 60 mls/hr IV .BY DURATION [facility] Rx#: [id number] Norepinephrine 4 mg In 99.305 189.528 75.911 Sodium Chloride 0.9% 250 ml @ 0.05 MCG/KG/MIN 15. 122 mls/hr IV .[id number] [facility] Rx#:[id number] Propofol 1,000 mg In 293.528 278.425 98.500 Empty Bag 1 bag @ Titrate IV .Q0M [facility] Rx#: [id number] Vancomycin 1,500 mg In 250 Sodium Chloride 0.9% 250 ml @ 125 mls/hr IVPB Q16H [facility] Rx#:[id number] Tube Feeding 120 305 90 Lipid 10 Sodium Chloride 0.9% 1, 10 000 ml @ 5 mls/hr IV . Q24H [facility] Rx#:[id number] Other 90 90 Output: Urine 1720 1770 780 Other: Voiding Method Indwelling Catheter Indwelling Catheter Indwelling Catheter ABP, PAP, CO, CI - Last Documented Arterial Blood Pressure 114/65 - Exam GENERAL DESCRIPTION: The patient currently intubated on the vent and sedated HEENT: [Oral mucosa is dry and patient is orally intubated] EYES : [pallor or scleral icterus] RESPIRATORY SYSTEM: [Unlabored breathing decreased breath sound at the base] CARDIA VASCULAR SYSTEM: [S1-S2 regular rate and rhythm no murmur] GI: [Abdominal soft there's no tenderness no organomegaly] EXTREMITIES: [No edema feet] - Labs CBC & Chem 7: 03/29/19 04:44 03/29/19 18:20 Labs: Abnormal Lab Results - Last 24 Hours (Table) 03/28/19 03/28/19 03/28/19 Range/Units 11:37 17:02 23:53 WBC (3.8-10.6) k/uL RBC (4.30-5.90) m/uL Hgb (13.0-17.5) gm/dL Hct (39.0-53.0) % RDW (11.5-15.5) % Neutrophils # (Manual) (1.3-7.7) k/uL Lymphocytes # (Manual) (1.0-4.8) k/uL Eosinophils # (Manual) (0-0.7) k/uL ABG pH (7.35-7.45) ABG pCO2 (35-45) mmHg ABG pO2 (83-108) mmHg ABG HCO3 (21-25) mmol/L ABG O2 Saturation (94-97) % Potassium (3.5-5.1) mmol/L Chloride (98-107) mmol/L Carbon Dioxide (22-30) mmol/L BUN (9-20) mg/dL Glucose (74-99) mg/dL POC Glucose (mg/dL) 114 H 147 H 148 H (75-99) mg/dL Calcium (8.4-10.2) mg/dL 03/29/19 03/29/19 03/29/19 Range/Units 04:32 04:44 04:44 WBC 73.6 H* (3.8-10.6) k/uL RBC 2.74 L (4.30-5.90) m/uL Hgb 8.0 L (13.0-17.5) gm/dL Hct 24.7 L (39.0-53.0) % RDW 18.4 H (11.5-15.5) % Neutrophils # (Manual) 13.25 H (1.3-7.7) k/uL Lymphocytes # (Manual) 58.88 H (1.0-4.8) k/uL Eosinophils # (Manual) 0.74 H (0-0.7) k/uL ABG pH 7.46 H (7.35-7.45) ABG pCO2 28 L (35-45) mmHg ABG pO2 163 H (83-108) mmHg ABG HCO3 20 L (21-25) mmol/L ABG O2 Saturation 99.2 H (94-97) % Potassium 3.4 L (3.5-5.1) mmol/L Chloride 115 H (98-107) mmol/L Carbon Dioxide 19 L (22-30) mmol/L BUN 26 H (9-20) mg/dL Glucose 135 H (74-99) mg/dL POC Glucose (mg/dL) (75-99) mg/dL Calcium 7.5 L (8.4-10.2) mg/dL 03/29/19 Range/Units 05:55 WBC (3.8-10.6) k/uL RBC (4.30-5.90) m/uL Hgb (13.0-17.5) gm/dL Hct (39.0-53.0) % RDW (11.5-15.5) % Neutrophils # (Manual) (1.3-7.7) k/uL Lymphocytes # (Manual) (1.0-4.8) k/uL Eosinophils # (Manual) (0-0.7) k/uL ABG pH (7.35-7.45) ABG pCO2 (35-45) mmHg ABG pO2 (83-108) mmHg ABG HCO3 (21-25) mmol/L ABG O2 Saturation (94-97) % Potassium (3.5-5.1) mmol/L Chloride (98-107) mmol/L Carbon Dioxide (22-30) mmol/L BUN (9-20) mg/dL Glucose (74-99) mg/dL POC Glucose (mg/dL) 149 H (75-99) mg/dL Calcium (8.4-10.2) mg/dL Microbiology - Last 24 Hours (Table) 03/27/19 01:10 Blood Culture - Preliminary Blood No Growth after 48 hours 03/23/19 18:07 Blood Culture - Preliminary Blood No Growth after 120 hours 03/28/19 10:55 Urine Culture - Preliminary Urine,Voided 03/26/19 02:23 Gram Stain - Final Sputum Sputum Culture - Final Assessment and Plan Assessment: 1-patient was initially admitted hospital with abdominal pain from significant decrease in size of his lymphadenopathy with concern for possible compression of the intestine with component of ischemic colitis versus diverticulitis 2-patient with new fever after the patient did have significant change in his clinical condition with acute vent dependent respiratory failure with a possible component of aspiration pneumonitis--- blood and sputum cultures negative so far Plan: 1-blood and sputum culture remains to be negative 2-the patient be continued on vancomycin pharmacy to dose target trough of 15 along with cefepime and Flagyl, while monitoring his clinical course closely Family at the bedside questions were answered Time with Patient: Less than 30
[2019-03-29 23:46] LABS: Glucose,Whole Blood 148 mg/dL (75-99)
[2019-03-30] MEDS: INSULIN ASPART (NovoLOG) 100 UNIT/ML VIAL SQ SCH ×5 (00:44→17:36)
[2019-03-30] MEDS: PROPOFOL 1,000 MG in EMPTY BAG 1 BAG IV SCH ×2 (00:51→08:58)
[2019-03-30] MEDS: POTASSIUM CHLORIDE 20 MEQ in WATER FOR INJECTION 1 100ML.BAG IVPB SCH (00:51)
[2019-03-30] MEDS: IPRATROPIUM-ALBUTEROL 3 ML NEB INHALATION SCH ×6 (03:54→23:05)
[2019-03-30 05:05] LABS: ABG Base Excess -0.4 mmol/L; ABG HCO3 23 mmol/L (21-25); ABG PCO2 32 mmHg (35-45); ABG PH 7.47 (7.35-7.45); ABG PO2 147 mmHg (83-108); ABG TCO2 24 mmol/L (19-24)
[2019-03-30 06:22] LABS: Glucose,Whole Blood 104 mg/dL (75-99)
[2019-03-30 06:51] LABS: Anisocytosis Slight; HCT 28.5 % (39.0-53.0); MCH 28.7 pg (25.0-35.0); MCHC 31.5 g/dL (31.0-37.0); MCV 90.9 fL (80.0-100.0); Mean Platelet Volume 7.6; Platelet Count 184 k/uL (150-450); Poikilocytosis Slight; RBC 3.14 m/uL (4.30-5.90); RDW 17.8 % (11.5-15.5)
[2019-03-30 06:54] LABS: Calcium 7.7 mg/dL (8.4-10.2); Magnesium 1.6 mg/dL (1.6-2.3); Phosphorus 2.9 mg/dL (2.5-4.5); Potassium 3.6 mmol/L (3.5-5.1)
[2019-03-30 07:01] LABS: WBC 69.2 k/uL (3.8-10.6)
--- NOTE | 2019-03-30 07:48 | XR ---
EXAMINATION TYPE: XR chest 1V portable DATE OF EXAM: 03/30/2019 COMPARISON: 03/29/2019 INDICATION: Tube placement TECHNIQUE: Single frontal view of the chest is obtained. FINDINGS: The heart size is normal. The pulmonary vasculature is normal. Small right pleural effusion is present. A small left pleural effusion is present. Endotracheal tube tip is above the pavel. Nasogastric tube transverses the thorax with tip in the up per abdomen. EKG leads overlie the lung bases. Left central venous catheter tip is in the distal supe rior vena cava region. IMPRESSION: 1. Small right and minimal left pleural effusion. 2. Lines and catheters discussed above.
[2019-03-30 07:54] LABS: Band Neutrophils % 1 %; Eosinophils # (M) 0.69 k/uL (0-0.7); Lymphocytes # (M) 61.59 k/uL (1.0-4.8); Monocytes # (M) 1.38 k/uL (0-1.0); Neutrophils % (M) 9 %; Nucleated Red Blood Cells 0 /100 WBC (0-0); Total Cells Counted 200
[2019-03-30] MEDS ORDERED: Potassium Replacement Protocol 1 EACH MISC MISCELLANE PRN ×2 (08:01→16:27)
[2019-03-30] MEDS ORDERED: Magnesium Replacement Protocol 1 EACH MISC MISCELLANE PRN (08:02)
[2019-03-30] MEDS: FUROSEMIDE 10 MG/ML 4 ML VIAL IV SCH (08:49)
[2019-03-30] MEDS: AMIODARONE 200 MG TAB PO SCH ×2 (08:49→21:27)
[2019-03-30] MEDS: SODIUM CHLORIDE 0.9% 1,000 ML IV SCH (08:49)
[2019-03-30] MEDS: ASPIRIN 81 MG PO SCH (08:50)
[2019-03-30] MEDS: APIXABAN 5 MG TAB PO SCH ×2 (08:50→21:26)
[2019-03-30] MEDS: METOPROLOL TARTRATE 25 MG TAB PO SCH ×2 (08:50→21:26)
[2019-03-30] MEDS: CHLORHEXIDINE GLUCONATE 15 ML CUP MUCOUS MEM SCH ×2 (08:50→21:27)
[2019-03-30] MEDS: metroNIDAZOLE 500 MG TAB PO SCH ×3 (08:50→21:47)
[2019-03-30] MEDS: CEFEPIME 2 GM in SODIUM CHLORIDE 0.9% 100 ML IVPB SCH ×2 (08:50→21:27)
[2019-03-30] MEDS: POTASSIUM CHLORIDE 10 MEQ in WATER FOR INJECTION 1 100ML.BAG IVPB SCH ×2 (09:06→11:03)
[2019-03-30] MEDS: MAGNESIUM SULFATE-D5W PMX 1 GM in DEXTROSE/WATER 1 100ML.BAG IVPB SCH ×2 (09:13→10:33)
[2019-03-30] MEDS: NOREPINEPHRINE 4 MG in SODIUM CHLORIDE 0.9% 250 ML IV SCH (09:19)
--- NOTE | 2019-03-30 10:33 | PN ---
PROGRESS NOTE Mr. Lee is an 78-year-old male with history of paroxysmal atrial fibrillation with a history of CLL who presented with progressive abdominal discomfort and was found to have large mass in the abdomen. Subsequently he had hypotension and respiratory failure requiring mechanical ventilation. He had episode of atrial fibrillation. He converted back to sinus mechanism. Hemodynamically, he has been stable. He continues to be intubated. He has no ventricular arrhythmia. His blood pressure has been stable. He has been tolerating tube feeding. He continues to be at this time on amiodarone 400 mg twice a day, Eliquis 5 mg twice a day, aspirin once a day, Lipitor 20 mg daily, metoprolol tartrate 12.5 mg twice a day. PHYSICAL EXAMINATION: Blood pressure 105/50 with the heart rate in the 90s. LUNGS: Clear anteriorly. HEART: Regular rate and rhythm. S1, S2. No S3. No gallop appreciated. ABDOMEN: Soft. Positive bowel sounds. No organomegaly. EXTREMITIES: With 1+ edema. LAB DATA: Lab data revealed a hemoglobin of 9, white blood cell of 69,000, platelet count of 184. BUN and creatinine 32 and 0.98. Potassium 3.6. IMPRESSION: 1. Respiratory failure with possible pneumonia in an immunocompromised patient. 2. Non ST-segment elevation myocardial infarction with moderate to severe ischemic cardiomyopathy. 3. Atrial fibrillation, back in sinus mechanism, anticoagulated and on amiodarone. 4. Chronic lymphocytic leukemia with large intraabdominal lymphadenopathy. 5. Severe anemia. RECOMMENDATION: From the cardiac standpoint, I will continue on the amiodarone. I will increase the dose of his beta dian. Continue supportive care. Attempt to wean him will be initiated by Dr. Miller. Depending on his progress, further recommendation will be made. The prognosis remains quite guarded. MMODL / IJN: [id number] /
--- NOTE | 2019-03-30 11:02 | P.PN ---
Subjective Progress Note Date: 03/30/19 The patient's sedation has been reduced, and he was awake on the vent today. He did open his eyes to voice but does not appear to be responding otherwise. Generalized weakness persists. No obvious bleeding, fevers or chills Objective - Vital Signs Vital signs: Vital Signs Temp 98.8 F 03/30/19 08:00 Pulse 88 03/30/19 10:00 Resp 21 03/30/19 10:00 BP 92/67 03/30/19 07:00 Pulse Ox 98 03/30/19 10:00 Intake & Output 03/29/19 03/30/19 03/30/19 18:59 06:59 18:59 Intake Total 2393.364 917.02 734.834 Output Total 1950 2170 900 Balance 443.364 -1252.98 -165.166 Weight 91.7 kg 90.8 kg Intake: IV 612 817 144 Cefepime 2 gm In Sodium 100 100 100 Chloride 0.9% 100 ml @ 200 mls/hr IVPB Q12H [facility] Rx#:[id number] Mvi, Adult No.4 with Vit 330 330 K 10 ml Trace (Conc-1Ml/ Dose) 1 ml Sodium Acetate 30 meq Potassium Chloride 10 meq Potassium Phosphate 10 mmol Calcium Gluconate 1 gm In Amino Acid 5%-D15w 1,000 ml @ 30 mls/hr IV .Q24H [facility] Rx#:[id number] Pressure bags 0.9 72 72 24 Sodium Chloride 0.9% 1, 110 65 20 000 ml @ 5 mls/hr IV . Q24H [facility] Rx#:[id number] Vancomycin 1,500 mg In 250 Sodium Chloride 0.9% 250 ml @ 125 mls/hr IVPB Q16H [facility] Rx#:[id number] Intake, IV Titration 1411.364 60.02 540.834 Amount Amiodarone 300 mg In 212.5 Dextrose 5% in Water 250 ml @ 0.5 MG/MIN 25 mls/hr IV .Q10H [facility] Rx#: [id number] Cefepime 2 gm In Sodium 100 Chloride 0.9% 100 ml @ 200 mls/hr IVPB Q12H [facility] Rx#:[id number] Magnesium Sulfate-D5w Pmx 100 1 gm In Dextrose/Water 1 100ml.bag @ 100 mls/hr IVPB Q1H [facility] Rx#: [id number] Mvi, Adult No.4 with Vit 723.5 K 10 ml Trace (Conc-1Ml/ Dose) 1 ml Sodium Acetate 30 meq Potassium Chloride 10 meq Potassium Phosphate 10 mmol Calcium Gluconate 1 gm In Amino Acid 5%-D15w 1,000 ml @ 30 mls/hr IV .Q24H [facility] Rx#:[id number] Norepinephrine 4 mg In 275.364 140.789 Sodium Chloride 0.9% 250 ml @ 0.05 MCG/KG/MIN 15. 122 mls/hr IV .[id number] [facility] Rx#:[id number] Potassium Chloride 20 meq 100 In Water For Injection 1 100ml.bag @ 50 mls/hr IVPB Q2H [facility] Rx#: [id number] Propofol 1,000 mg In 200.000 55.02 100.045 Empty Bag 1 bag @ Titrate IV .Q0M [facility] Rx#: [id number] Sodium Chloride 0.9% 1, 5 000 ml @ 5 mls/hr IV . Q24H [facility] Rx#:[id number] Tube Feeding 360 40 50 Lipid 10 Sodium Chloride 0.9% 1, 10 000 ml @ 5 mls/hr IV . Q24H [facility] Rx#:[id number] Output: Urine 1950 2170 900 Other: Voiding Method Indwelling Catheter Indwelling Catheter # Voids 2 ABP, PAP, CO, CI - Last Documented Arterial Blood Pressure 91/51 - Constitutional General appearance: Present: no acute distress - EENT Eyes: Present: EOMI - Respiratory Respiratory: bilateral: diminished - Cardiovascular Rhythm: regular Heart sounds: normal: S1, S2 - Gastrointestinal General gastrointestinal: Present: distended, normal bowel sounds - Integumentary Integumentary: Present: normal - Musculoskeletal Musculoskeletal: Present: generalized weakness, strength equal bilaterally - Labs CBC & Chem 7: 03/30/19 06:00 03/30/19 06:00 Labs: Abnormal Lab Results - Last 24 Hours (Table) 03/29/19 03/29/19 03/29/19 Range/Units 11:38 17:14 18:20 WBC (3.8-10.6) k/uL RBC (4.30-5.90) m/uL Hgb (13.0-17.5) gm/dL Hct (39.0-53.0) % RDW (11.5-15.5) % Lymphocytes # (Manual) (1.0-4.8) k/uL Monocytes # (Manual) (0-1.0) k/uL ABG pH (7.35-7.45) ABG pCO2 (35-45) mmHg ABG pO2 (83-108) mmHg ABG O2 Saturation (94-97) % Potassium 3.3 L (3.5-5.1) mmol/L Chloride (98-107) mmol/L BUN (9-20) mg/dL Glucose (74-99) mg/dL POC Glucose (mg/dL) 162 H 141 H (75-99) mg/dL Calcium (8.4-10.2) mg/dL 03/29/19 03/30/19 03/30/19 Range/Units 23:33 05:00 06:00 WBC (3.8-10.6) k/uL RBC (4.30-5.90) m/uL Hgb (13.0-17.5) gm/dL Hct (39.0-53.0) % RDW (11.5-15.5) % Lymphocytes # (Manual) (1.0-4.8) k/uL Monocytes # (Manual) (0-1.0) k/uL ABG pH 7.47 H (7.35-7.45) ABG pCO2 32 L (35-45) mmHg ABG pO2 147 H (83-108) mmHg ABG O2 Saturation 99.0 H (94-97) % Potassium (3.5-5.1) mmol/L Chloride 114 H (98-107) mmol/L BUN 32 H (9-20) mg/dL Glucose 110 H (74-99) mg/dL POC Glucose (mg/dL) 148 H (75-99) mg/dL Calcium 7.7 L (8.4-10.2) mg/dL 03/30/19 03/30/19 Range/Units 06:00 06:10 WBC 69.2 H* (3.8-10.6) k/uL RBC 3.14 L (4.30-5.90) m/uL Hgb 9.0 L (13.0-17.5) gm/dL Hct 28.5 L (39.0-53.0) % RDW 17.8 H (11.5-15.5) % Lymphocytes # (Manual) 61.59 H (1.0-4.8) k/uL Monocytes # (Manual) 1.38 H (0-1.0) k/uL ABG pH (7.35-7.45) ABG pCO2 (35-45) mmHg ABG pO2 (83-108) mmHg ABG O2 Saturation (94-97) % Potassium (3.5-5.1) mmol/L Chloride (98-107) mmol/L BUN (9-20) mg/dL Glucose (74-99) mg/dL POC Glucose (mg/dL) 104 H (75-99) mg/dL Calcium (8.4-10.2) mg/dL Microbiology - Last 24 Hours (Table) 03/27/19 01:10 Blood Culture - Preliminary Blood No Growth after 72 hours 03/23/19 18:07 Blood Culture - Final Blood No Growth after 144 hours 03/28/19 10:55 Urine Culture - Final Urine,Voided Assessment and Plan (1) Acute respiratory failure with hypoxia Narrative/Plan: The patient has gradually improved. Chest x-ray still shows bilateral infiltrative changes with a stable. Case was discussed with pulmonary medicine. They feel that the patient is reasonable to try weaning attempts. He is currently undergoing withdrawal of sedation to try to facilitate that. The case was also discussed with the family. Acute AR was the main predisposing factor, with the patient also having some pre-existing pneumoniae the time of admission. If the patient is able to get off the ventilator successfully, and maintain his respirations, then treatment of his other issues can be considered However if the patient is unable to wean, or has recurrence of respiratory failure after extubation, then the family will likely discuss consideration of comfort Current Visit: Yes Status: Acute Priority: High Code(s): J96.01 - ACUTE RESPIRATORY FAILURE WITH HYPOXIA SNOMED Code(s): 67446686 (2) Acute non-ST elevation myocardial infarction (NSTEMI) Narrative/Plan: Cardiac status currently appears to be stable with controlled heart rate though blood pressure is still requiring low dose of Levothroid for support If the patient is able to be extubated with improvement in performance status, would discuss with cardiology about further interventions Current Visit: Yes Status: Acute Priority: High Code(s): I21.4 - NON-ST ELEVATION (NSTEMI) MYOCARDIAL INFARCTION SNOMED Code(s): 386086483 (3) Anemia Narrative/Plan: Hemoglobin has been stable in the 7-8 range. Continue to monitor and transfuse to keep above 7 Current Visit: No Status: Acute Code(s): D64.9 - ANEMIA, UNSPECIFIED SNOMED Code(s): 369423815 (4) CAP (community acquired pneumonia) Current Visit: No Status: Acute Code(s): J18.9 - PNEUMONIA, UNSPECIFIED ORGANISM SNOMED Code(s): 285452999 (5) Chronic lymphocytic leukemia Narrative/Plan: Concern for progression, versus reactive inflammation. Assuming that the patient is able to get off the ventilator, we may need to consider steroids for symptom control for his abdominal pain. It was again discussed with the family, that this would entail some risk in the setting of a recent AR. If the patient does require additional, more aggressive treatment, then he will likely need his cardiac issues addressed first Current Visit: Yes Status: Chronic Priority: Medium Code(s): C91.10 - CHRONIC LYMPHOCYTIC LEUK OF B-CELL TYPE NOT ACHIEVE REMIS SNOMED Code(s): 02784012 (6) Abdominal pain Current Visit: Yes Status: Acute Code(s): R10.9 - UNSPECIFIED ABDOMINAL PAIN SNOMED Code(s): 09101714
[2019-03-30 12:39] LABS: Glucose,Whole Blood 116 mg/dL (75-99)
--- NOTE | 2019-03-30 12:50 | P.PN ---
Subjective Progress Note Date: 03/30/19 Patient still on ventilator, patient arousing and awake following commands squeezing fingers currently on sedation medication propofol turned, the patient doing well with tube feeds high-protein with low residuals, the patient converted back to NSR overnight Blood pressure appears much improved weaning IV pressor levophed now down 1-2 mcg . White count coming down to 73, 000 today, patient afebrile. Weaning trials to be initiated shortly, continues to have great urine output. No acute events overnight Objective - Vital Signs Vital signs: Vital Signs Temp 98.0 F 03/30/19 12:00 Pulse 92 03/30/19 12:00 Resp 24 03/30/19 12:00 BP 92/67 03/30/19 07:00 Pulse Ox 99 03/30/19 12:00 Intake & Output 03/29/19 03/30/19 03/30/19 18:59 06:59 18:59 Intake Total 2393.364 917.02 1016.834 Output Total 1950 2170 1400 Balance 443.364 -1252.98 -383.166 Weight 91.7 kg 90.8 kg Intake: IV 612 817 166 Cefepime 2 gm In Sodium 100 100 100 Chloride 0.9% 100 ml @ 200 mls/hr IVPB Q12H [facility] Rx#:[id number] Mvi, Adult No.4 with Vit 330 330 K 10 ml Trace (Conc-1Ml/ Dose) 1 ml Sodium Acetate 30 meq Potassium Chloride 10 meq Potassium Phosphate 10 mmol Calcium Gluconate 1 gm In Amino Acid 5%-D15w 1,000 ml @ 30 mls/hr IV .Q24H [facility] Rx#:[id number] Pressure bags 0.9 72 72 36 Sodium Chloride 0.9% 1, 110 65 30 000 ml @ 5 mls/hr IV . Q24H [facility] Rx#:[id number] Vancomycin 1,500 mg In 250 Sodium Chloride 0.9% 250 ml @ 125 mls/hr IVPB Q16H [facility] Rx#:[id number] Intake, IV Titration 1411.364 60.02 740.834 Amount Amiodarone 300 mg In 212.5 Dextrose 5% in Water 250 ml @ 0.5 MG/MIN 25 mls/hr IV .Q10H [facility] Rx#: [id number] Cefepime 2 gm In Sodium 100 Chloride 0.9% 100 ml @ 200 mls/hr IVPB Q12H [facility] Rx#:[id number] Magnesium Sulfate-D5w Pmx 200 1 gm In Dextrose/Water 1 100ml.bag @ 100 mls/hr IVPB Q1H [facility] Rx#: [id number] Mvi, Adult No.4 with Vit 723.5 K 10 ml Trace (Conc-1Ml/ Dose) 1 ml Sodium Acetate 30 meq Potassium Chloride 10 meq Potassium Phosphate 10 mmol Calcium Gluconate 1 gm In Amino Acid 5%-D15w 1,000 ml @ 30 mls/hr IV .Q24H [facility] Rx#:[id number] Norepinephrine 4 mg In 275.364 140.789 Sodium Chloride 0.9% 250 ml @ 0.05 MCG/KG/MIN 15. 122 mls/hr IV .[id number] [facility] Rx#:[id number] Potassium Chloride 10 meq 100 In Water For Injection 1 100ml.bag @ 100 mls/hr IVPB Q1H [facility] Rx#: [id number] Potassium Chloride 20 meq 100 In Water For Injection 1 100ml.bag @ 50 mls/hr IVPB Q2H [facility] Rx#: [id number] Propofol 1,000 mg In 200.000 55.02 100.045 Empty Bag 1 bag @ Titrate IV .Q0M [facility] Rx#: [id number] Sodium Chloride 0.9% 1, 5 000 ml @ 5 mls/hr IV . Q24H [facility] Rx#:[id number] Tube Feeding 360 40 110 Lipid 10 Sodium Chloride 0.9% 1, 10 000 ml @ 5 mls/hr IV . Q24H [facility] Rx#:[id number] Output: Urine 1950 2170 1400 Other: Voiding Method Indwelling Catheter Indwelling Catheter Indwelling Catheter # Voids 2 ABP, PAP, CO, CI - Last Documented Arterial Blood Pressure 91/51 - Exam Constitutional: No acute distress, conversant, pleasant Eyes: Anicteric sclerae, moist conjunctiva, no lid-lag, PERRLA ENMT: NC/AT,Oropharynx clear, no erythema, exudates Neck:Supple, FROM, no masses, or JVD, No carotid bruits; No thyromegaly, left IJ in place, Og/OT tube in place Lungs: Diminished in the bases bilaterally otherwise equal and symmetric currently on ventilator Cardiovascular: Heart regular in rate and rhythm, No murmurs, gallops, or rubs no peripheral edema Abdominal: Soft Nontender, nom distended, no guarding, no rebound or rigidity, Normoactive bowel sounds No hepatomegaly, No splenomegaly, No palpable mass No abdominal wall hernia noted Skin: Normal temperature, tone, texture, turgor, No induration No subcutaneous nodules, No rash, lesions, No ulcers Extremities:No digital cyanosis No clubbing, Pedal pulses intact and symmetrical Radial pulses intact and symmetrical Normal gait and station, No sugar f tenderness Neuro: Awake and following simple commands squeezing fingers pupils are reactive to light, no seizure activity - Labs CBC & Chem 7: 03/30/19 06:00 03/30/19 06:00 Labs: Abnormal Lab Results - Last 24 Hours (Table) 03/29/19 03/29/19 03/29/19 Range/Units 17:14 18:20 23:33 WBC (3.8-10.6) k/uL RBC (4.30-5.90) m/uL Hgb (13.0-17.5) gm/dL Hct (39.0-53.0) % RDW (11.5-15.5) % Lymphocytes # (Manual) (1.0-4.8) k/uL Monocytes # (Manual) (0-1.0) k/uL ABG pH (7.35-7.45) ABG pCO2 (35-45) mmHg ABG pO2 (83-108) mmHg ABG O2 Saturation (94-97) % Potassium 3.3 L (3.5-5.1) mmol/L Chloride (98-107) mmol/L BUN (9-20) mg/dL Glucose (74-99) mg/dL POC Glucose (mg/dL) 141 H 148 H (75-99) mg/dL Calcium (8.4-10.2) mg/dL 03/30/19 03/30/19 03/30/19 Range/Units 05:00 06:00 06:00 WBC 69.2 H* (3.8-10.6) k/uL RBC 3.14 L (4.30-5.90) m/uL Hgb 9.0 L (13.0-17.5) gm/dL Hct 28.5 L (39.0-53.0) % RDW 17.8 H (11.5-15.5) % Lymphocytes # (Manual) 61.59 H (1.0-4.8) k/uL Monocytes # (Manual) 1.38 H (0-1.0) k/uL ABG pH 7.47 H (7.35-7.45) ABG pCO2 32 L (35-45) mmHg ABG pO2 147 H (83-108) mmHg ABG O2 Saturation 99.0 H (94-97) % Potassium (3.5-5.1) mmol/L Chloride 114 H (98-107) mmol/L BUN 32 H (9-20) mg/dL Glucose 110 H (74-99) mg/dL POC Glucose (mg/dL) (75-99) mg/dL Calcium 7.7 L (8.4-10.2) mg/dL 03/30/19 03/30/19 Range/Units 06:10 12:26 WBC (3.8-10.6) k/uL RBC (4.30-5.90) m/uL Hgb (13.0-17.5) gm/dL Hct (39.0-53.0) % RDW (11.5-15.5) % Lymphocytes # (Manual) (1.0-4.8) k/uL Monocytes # (Manual) (0-1.0) k/uL ABG pH (7.35-7.45) ABG pCO2 (35-45) mmHg ABG pO2 (83-108) mmHg ABG O2 Saturation (94-97) % Potassium (3.5-5.1) mmol/L Chloride (98-107) mmol/L BUN (9-20) mg/dL Glucose (74-99) mg/dL POC Glucose (mg/dL) 104 H 116 H (75-99) mg/dL Calcium (8.4-10.2) mg/dL Microbiology - Last 24 Hours (Table) 03/27/19 01:10 Blood Culture - Preliminary Blood No Growth after 72 hours 03/23/19 18:07 Blood Culture - Final Blood No Growth after 144 hours 03/28/19 10:55 Urine Culture - Final Urine,Voided Assessment and Plan (1) Shock Narrative/Plan: * Multifactorial due to cardiogenic secondary to non-STEMI with ICM superimposed on septic shock due PNA and intrabdominal pathology * Patient continued on IV pressors currently down to 4 g of levophed , CVP 8-9 * Continued on broad-spectrum antibiotics with cefepime and vancomycin and Flagyl Current Visit: Yes Status: Acute Code(s): R57.9 - SHOCK, UNSPECIFIED SNOMED Code(s): 20208366 (2) Acute respiratory failure with hypoxia Narrative/Plan: * Secondary to septic shock with superimposed by basilar pneumonia * Continued on mechanical ventilation per pulmonary critical care, will likely initiate spontaneous breathing trial shortly * ABG pH of 7.47 with a pCO2 of 32 and pO2 of 147 on FiO2 40% and Tidal Vol 600 with chest x-ray today showing increasing right small pleural effusion and right basilar airspace disease and persistent left trace pleural effusion and left basilar airspace disease * Continue scheduled and when necessary DuoNeb bronchodilator breathing pretty tments, patient arousing nicely on sedation vacation Current Visit: Yes Status: Acute Priority: High Code(s): J96.01 - ACUTE RESPIRATORY FAILURE WITH HYPOXIA SNOMED Code(s): 02261436 (3) Non-STEMI (non-ST elevated myocardial infarction) Narrative/Plan: * Initial troponin less than 0.012. EKG ordered yesterday for concerns of tachycardia, with ST depression, troponin reordered to rule out ACS. * Repeat troponin 3.650, 8.210, 20.4, 31. Possibly related to true cardiac event from severe anemia and hypotension. * Echocardiogram shows EF 35-40% with hypokinetic wall motion. * Continue Telemetry monitoring. Continue aspirin. As per Dr. Rajput, not candidate for aggressive cardiac workup. Follow cardiology recommendations. No heparin due to severe anemia. Current Visit: Yes Status: Acute Code(s): I21.4 - NON-ST ELEVATION (NSTEMI) MYOCARDIAL INFARCTION SNOMED Code(s): 31901098 (4) Ischemic cardiomyopathy Current Visit: Yes Status: Acute Code(s): I25.5 - ISCHEMIC CARDIOMYOPATHY SNOMED Code(s): 210879348 (5) Chronic a-fib Narrative/Plan: * Currently rate controlled. Plan: Continue metoprolol. Continue Propafenone. Started on amiodarone drip. * No anticoagulation due to severe anemia. K > 4 and Mg > 2. Follow cardiology recommendations. Current Visit: Yes Status: Acute Code(s): I48.2 - CHRONIC ATRIAL FIBRILLATION SNOMED Code(s): 204075542 (6) Leukocytosis Narrative/Plan: * CLL superimposed on sepsis concern for progression versus reactive inflammation * Appreciate hematology recommendations Current Visit: Yes Status: Acute Priority: Medium Code(s): D72.829 - ELEV ATED WHITE BLOOD CELL COUNT, UNSPECIFIED SNOMED Code(s): 728659826 Plan: Disposition * Plan to titrate up high protein tube feeds * Appreciate consultants recommendations, continue to monitor daily and update family with plan of care Patient critical family aware *
[2019-03-30] MEDS ORDERED: 1: MVI, ADULT NO.4 WITH VIT K 10 ML, TRACE (CONC-1ML/DOSE) 1 ML, SODIUM ACETATE 30 MEQ, IV SCH ×7 (13:00)
[2019-03-30] MEDS: VANCOMYCIN 1,500 MG in SODIUM CHLORIDE 0.9% 250 ML IVPB SCH (14:39)
--- NOTE | 2019-03-30 16:48 | P.PN ---
Subjective Progress Note Date: 03/30/19 On today's evaluation of 03/27/2019 I'm seeing this patient for a follow-up. The patient is currently intubated on a mechanical ventilator. The patient is known history of CLL receiving FOLFOX treatment on outpatient basis.. The patient came in for increased abdominal pain and subsequently the patient went into respiratory failure and hemodynamic collapse. The patient suffered an acute non-ST segment elevation myocardial infarction and troponin peaked at 31. Cardiology is on the case This morning, the patient was sedated with propofol at 50 g per KG per minute. The patient is intubated on a mechanical ventilator. Earlier this morning the patient was on a volume cycle mode of ventilation with a tidal volume of 600 with a rate of 20, FiO2 of 40% and a PEEP of 5. The patient is intubated with a #8 ET tube. The blood gases from this morning showed a pH of 7.39 with a pCO2 of 28 and pO2 of 147. The patient was still having higher tidal volumes and is minute ventilation was quite elevated. Based on all this, I increased his tidal volume of 2 600 which made the patient much more comfortable and sickness with a mechanical ventilator. The patient is afebrile. The patient is hypotensive and earlier this morning he was on norepinephrine infusion running at a rate of 21 mcg/m. His urine output is in order of 60 mL an hour. The patient is on IV fluids at 0.9 at the rate of 100 mL an hour. The patient is in atrial fibrillation. He is on an amiodarone drip at 0.5 g per minute as a maintenance. He has a left IJ triple-lumen catheter and the CVP is in the range of 8 and 9 mmHg. The patient had a chest x-ray this morning that showed bilateral basilar infiltrates and bilateral pleural effusions are small. The patient also had some mild cardiomegaly. ET tube was lying low with a tip being around 1. 6 cm above the pavel. The patient remains nothing by mouth. He remains well covered with a combination of cefepime and Flagyl and vancomycin as broad-spectrum antibiotic coverage. Urine culture from 2018 has been negative. Sputum culture from 03/26/2019 is negative and the blood culture from 516 has been negative and the repeat blood culture was sent on 03/27/2019. Hematologic profile was quite abnormal and then consistent with the patient's history of CLL. Hemoglobin is at 7.3 with a platelet count of 149 and a white cell count of 82.3. Anything else no abdominal distention. OG tube is in place and there is no significant drainage from the orogastric tube. Echocardiogram showed segmental wall motion abnormalities along with an ejection fraction of 35-40%. On 03/28/2019 I'm seeing this patient for a follow-up. He was intubated sedated on a mechanical ventilator. The patient is currently on assist control mode of ventilation with a tidal volume of 6000 and FiO2 of 40% with a PEEP of 5 and the rate of 20. Blood gases from today showed a pH of 7.38 with a pCO2 of 27 and pO2 of 159. His chest x-ray still showing bilateral pulmonary infiltrates and cardiomegaly and ET tube is in good location. The patient is producing good urine output and the fluid balance over the past 24 hours has been +3.8 L. He has converted back into normal sinus rhythm. He is on low-dose norepinephrine infusion which is running at 4-5 g per minute. Antibiotic coverage includes a combination of cefepime and vancomycin. He is also on Flagyl. He had a low- grade temperature yesterday with a T-max of 100.2 and currently he is afebrile. He remains nothing by mouth. No significant output from his orogastric tube. No significant abdominal distention. Bowel sounds are hypoactive, nearly absent yet there is no abdominal distention. His echo cardiac damage showed an ejection fraction of 35-40% along with segmental wall motion abnormalities. He is receiving IV fluids at the rate of 100 mL an hour. Discussed the case with cardiology. Discussed the case with oncology. On 03/29/2019 the patient remains intubated on a mechanical ventilator. The patient is sedated with propofol. He is calm and comfortable. Propofol is running at 40 mics. Remains on a mechanical ventilator. Essentially on the same vent setting. Tidal volumes at 6000 with an FiO2 of 40% and PEEP of 5. Blood gas shows further improvement in oxygenation. The pH is at 7.46 and a pCO2 of 28 and pO2 of 163. The patient is a component of acute respiratory alkalosis. Chest x-ray still showing better pulmonary infiltrates and effusion lung bases bilaterally consistent with CHF. The patient is afebrile. Hemodynamically, the patient is on few echograms of norepinephrine infusion for blood pressure support. The patient is producing adequate amount of urine outpu t. The patient was started on IV Lasix. The patient is eating push towards a negative fluid balance over the next 24 hours. The cardiac rhythm is back to atrial fibrillation. The patient was seen again by cardiology. The rate is controlled for now and the patient is on 400 mg of amiodarone by mouth twice a day and metoprolol 12.5 mg by mouth twice a day and Eliquis for long-term anticoagulation was also started. We are hoping to achieve a negative fluid balance over the next 24 hours. Meanwhile, I'm willing to give this patient a sedation holiday and assess his underlying neuro status while being off sedation. He is afebrile. All of the cultures of negative. He is on a broad-spectrum antibiotic coverage utilizing a combination of cefepime and vancomycin. He is also on Flagyl. The patient was started on enteral feeding for nutritional support at the rate of 20 mL an hour of vital high protein. He was able to tolerate that without any significant residual pain no abdominal d istention pain no bowel movements yet. We are going to advance the tube feeds and hold the TPN for now and we're going to continue the current TPN bag and stop it following that as the patient seems to be tolerating tube feeds for the time being. Family is at the bedside. The condition was extended to them at length. IV fluids are currently at KVO. On 03/30/2019 I'm seeing this patient for follow-up. Still intubated on a mechanical ventilator. He was still on the same mechanical ventilator settings with the assist control mode at a tidal volume of 500 rate of 20, and FiO2 of 40% and a PEEP of 5 and a blood gas showed a pH of 7.47 with a pCO2 of 32 and pO2 of 147. Chest x-ray showed stable findings of breath the pleural effusion. Nevertheless, the patient was achieving a good negative fluid balance. He was quite successful mechanical ventilator. I give him a sedation holiday. Discontinue the propofol and following that the patient woke up initially was very drowsy and is the day went by, he became progressively more awake and alert. Was found to more awake, the patient had a weaning parameters that showed a tidal volumes ranging between 450 and 550 with a vital capacity of 951 and a minute ventilation of 13 with a rapid shallow breathing index of 50. Accordingly, the patient was given a spontaneous breathing trial with a pressure support of 5 and a PEEP of 5 and following that he became uncomfortable, restless, tachypneic and he went into atrial fibrillation. The child was called and the patient was placed back on low-dose sedation with propofol time microgra ms per KG per minute. No fever. No chills. The patient is diuresing and the patient is achieving a negative fluid balance. He is receiving his tube feeds and is tolerating this without any major difficulties. He remains on a combination of cefepime and vancomycin as broad-spectrum antibiotic coverage. He remains on diuretics and the patient is receiving IV Lasix 40 mg every 12 hours. We'll hope to achieve a negative fluid balance over the next 24 hours. Blood pressure is being supported with a low dose of norepinephrine infusion. Objective - Vital Signs Vital signs: Vital Signs Temp 98.0 F 03/30/19 12:00 Pulse 83 03/30/19 15:10 Resp 21 03/30/19 15:10 BP 92/67 03/30/19 07:00 Pulse Ox 99 03/30/19 15:00 Intake & Output 03/29/19 03/30/19 03/30/19 18:59 06:59 18:59 Intake Total 2393.364 917.02 1550.834 Output Total 1950 2170 1860 Balance 443.364 -1252.98 -309.166 Weight 91.7 kg 90.8 kg Intake: IV 612 817 210 Cefepime 2 gm In Sodium 100 100 100 Chloride 0.9% 100 ml @ 200 mls/hr IVPB Q12H [facility] Rx#:[id number] Mvi, Adult No.4 with Vit 330 330 K 10 ml Trace (Conc-1Ml/ Dose) 1 ml Sodium Acetate 30 meq Potassium Chloride 10 meq Potassium Phosphate 10 mmol Calcium Gluconate 1 gm In Amino Acid 5%-D15w 1,000 ml @ 30 mls/hr IV .Q24H [facility] Rx#:[id number] Pressure bags 0.9 72 72 60 Sodium Chloride 0.9% 1, 110 65 50 000 ml @ 5 mls/hr IV . Q24H [facility] Rx#:[id number] Vancomycin 1,500 mg In 250 Sodium Chloride 0.9% 250 ml @ 125 mls/hr IVPB Q16H [facility] Rx#:[id number] Intake, IV Titration 1411.364 60.02 990.834 Amount Amiodarone 300 mg In 212.5 Dextrose 5% in Water 250 ml @ 0.5 MG/MIN 25 mls/hr IV .Q10H [facility] Rx#: [id number] Cefepime 2 gm In Sodium 100 Chloride 0.9% 100 ml @ 200 mls/hr IVPB Q12H [facility] Rx#:[id number] Magnesium Sulfate-D5w Pmx 200 1 gm In Dextrose/Water 1 100ml.bag @ 100 mls/hr IVPB Q1H [facility] Rx#: [id number] Mvi, Adult No.4 with Vit 723.5 K 10 ml Trace (Conc-1Ml/ Dose) 1 ml Sodium Acetate 30 meq Potassium Chloride 10 meq Potassium Phosphate 10 mmol Calcium Gluconate 1 gm In Amino Acid 5%-D15w 1,000 ml @ 30 mls/hr IV .Q24H [facility] Rx#:[id number] Norepinephrine 4 mg In 275.364 140.789 Sodium Chloride 0.9% 250 ml @ 0.05 MCG/KG/MIN 15. 122 mls/hr IV .[id number] [facility] Rx#:[id number] Potassium Chloride 10 meq 100 In Water For Injection 1 100ml.bag @ 100 mls/hr IVPB Q1H [facility] Rx#: [id number] Potassium Chloride 20 meq 100 In Water For Injection 1 100ml.bag @ 50 mls/hr IVPB Q2H [facility] Rx#: [id number] Propofol 1,000 mg In 200.000 55.02 100.045 Empty Bag 1 bag @ Titrate IV .Q0M [facility] Rx#: [id number] Sodium Chloride 0.9% 1, 5 000 ml @ 5 mls/hr IV . Q24H [facility] Rx#:[id number] Vancomycin 1,500 mg In 250 Sodium Chloride 0.9% 250 ml @ 125 mls/hr IVPB Q16H [facility] Rx#:[id number] Tube Feeding 360 40 350 Lipid 10 Sodium Chloride 0.9% 1, 10 000 ml @ 5 mls/hr IV . Q24H [facility] Rx#:[id number] Output: Urine 1950 2170 1860 Other: Voiding Method Indwelling Catheter Indwelling Catheter Indwelling Catheter # Voids 2 ABP, PAP, CO, CI - Last Documented Arterial Blood Pressure 91/48 - Exam Gen. appearance, comfortable sedated intubated on a mechanical ventilator and the patient is synchronous with the mechanical ventilation. Head exam was generally normal. There was no scleral icterus or corneal arcus. Mucous membranes were moist. Neck was supple and without jugular venous distension, thyromegaly, or carotid bruits. Carotids were easily palpable bilaterally. There was no adenopathy. The patient has an orogastric and orotracheal tube are both of them are in place and the patient has a left IJ triple-lumen catheter. Lungs sounds are diminished bilaterally. Breath sounds are otherwise equal and symmetrical. Heart sounds are irregular S1-S2 consistent with atrial fibrillation. No significant murmurs appreciated. No right ventricular heave or thrill. Abdominal exam revealed normal bowel sounds. The abdomen was soft, non-tender, and without masses, organomegaly, or appreciable enlargement of the abdominal aorta. Extremities are warm. There is equal and symmetrical pulses in lower extremities bilaterally with +1 pulses. No cyanosis. No clubbing. Neurologically the patient is sedated, comfortable. Synchronous with the mechanical ventilator. Pupils are equal and reactive to light. No facial asymmetry. No seizure activity has been noted. Examination of the skin revealed no evidence of significant rashes, suspicious appearing nevi or other concerning lesions. - Labs CBC & Chem 7: 03/30/19 06:00 03/30/19 15:15 Labs: Abnormal Lab Results - Last 24 Hours (Table) 03/29/19 03/29/19 03/29/19 Range/Units 17:14 18:20 23:33 WBC (3.8-10.6) k/uL RBC (4.30-5.90) m/uL Hgb (13.0-17.5) gm/dL Hct (39.0-53.0) % RDW (11.5-15.5) % Lymphocytes # (Manual) (1.0-4.8) k/uL Monocytes # (Manual) (0-1.0) k/uL ABG pH (7.35-7.45) ABG pCO2 (35-45) mmHg ABG pO2 (83-108) mmHg ABG O2 Saturation (94-97) % Potassium 3.3 L (3.5-5.1) mmol/L Chloride (98-107) mmol/L BUN (9-20) mg/dL Glucose (74-99) mg/dL POC Glucose (mg/dL) 141 H 148 H (75-99) mg/dL Calcium (8.4-10.2) mg/dL 03/30/19 03/30/19 03/30/19 Range/Units 05:00 06:00 06:00 WBC 69.2 H* (3.8-10.6) k/uL RBC 3.14 L (4.30-5.90) m/uL Hgb 9.0 L (13.0-17.5) gm/dL Hct 28.5 L (39.0-53.0) % RDW 17.8 H (11.5-15.5) % Lymphocytes # (Manual) 61.59 H (1.0-4.8) k/uL Monocytes # (Manual) 1.38 H (0-1.0) k/uL ABG pH 7.47 H (7.35-7.45) ABG pCO2 32 L (35-45) mmHg ABG pO2 147 H (83-108) mmHg ABG O2 Saturation 99.0 H (94-97) % Potassium (3.5-5.1) mmol/L Chloride 114 H (98-107) mmol/L BUN 32 H (9-20) mg/dL Glucose 110 H (74-99) mg/dL POC Glucose (mg/dL) (75-99) mg/dL Calcium 7.7 L (8.4-10.2) mg/dL 03/30/19 03/30/19 Range/Units 06:10 12:26 WBC (3.8-10.6) k/uL RBC (4.30-5.90) m/uL Hgb (13.0-17.5) gm/dL Hct (39.0-53.0) % RDW (11.5-15.5) % Lymphocytes # (Manual) (1.0-4.8) k/uL Monocytes # (Manual) (0-1.0) k/uL ABG pH (7.35-7.45) ABG pCO2 (35-45) mmHg ABG pO2 (83-108) mmHg ABG O2 Saturation (94-97) % Potassium (3.5-5.1) mmol/L Chloride (98-107) mmol/L BUN (9-20) mg/dL Glucose (74-99) mg/dL POC Glucose (mg/dL) 104 H 116 H (75-99) mg/dL Calcium (8.4-10.2) mg/dL Microbiology - Last 24 Hours (Table) 03/27/19 01:10 Blood Culture - Preliminary Blood No Growth after 72 hours 03/23/19 18:07 Blood Culture - Final Blood No Growth after 144 hours 03/28/19 10:55 Urine Culture - Final Urine,Voided Assessment and Plan Plan: 1 shock with profound hypotension currently on pressors. The patient had a acute non-ST segment elevation myocardial infarction. The patient could be also potentially septic and this shock could be a combination of cardiac and septic in nature. The patient is still requiring low-dose norepinephrine infusion for blood pressure control. He will be started gradually on diuretics as his shock is improved significantly. All of the cultures of been negative and the patient has been covered with broad-spectrum antibiotics. Echocardiogram showed underly ing CAD a and cardiomyopathy with an ejection fraction of 35%.. 2 acute hypoxic respiratory failure currently intubated on mechanical ventilator. The patient's chest x-ray showing bilateral lower lobe pulmonary infiltrates and small bilateral pleural effusions, chest x-ray from today is unchanged compared to yesterday and there is still persistent [place] pleural effusions [id number] in size. The patient was able to wake up off sedation and give me a good set of weaning parameters. The patient failed a spontaneous breathing trial and the patient went into atrial fibrillation with rapid ventricular response. Current rhythm is sinus. 3 acute non-ST segment elevation myocardial infarction, recovered 4 CHF ischemic in nature with ejection fraction of 35% and segmental wall motion abnormalities. 5 chronic atrial fibrillation and the patient continues to have episodes of A. fib RVR alternating with normal sinus rhythm. Earlier this morning while being given a spontaneous breathing trial the patient developed atrial fibrillation. He is currently back to normal sinus rhythm. His rate is controlled for now. 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 7 hematologic abnormalities with an abnormal hematologic profile consistent with CLL. The patient has lymphocytosis, thrombocytopenia and anemia. The patient's counts have been stable. The white cell count remains elevated essentially lymphocytosis in addition to a stable hemoglobin is stable platelet count. 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 I'm going going to keep the same vent setting for now. I'm very encouraged that the patient was able to wake up nicely today off sedation. Nevertheless he was unable to complete a spontaneous breathing trial. I don't think is ready for extubation for the time being special with the above-mentioned comorbidities. We'll try to put him on Lasix drip at 5 mg an h our. We'll try to achieve a better negativity in terms of his fluid balance. We'll cut down the IV fluids. We will change his levo fed support strength. I would suggest discontinuing the vancomycin as there is no indication of an underlying staphylococcal infection. Continue IV cefepime. Continue enteral feeding for nutritional support. We will use only gentle sedation and stop sedation again early tomorrow and try to wean him again. We'll continue to follow. The family is updated on his condition. Condition remains highly critical. There is a critically care evaluation was done and morning and 30 minutes. Time with Patient: Greater than 30
[2019-03-30] MEDS: POTASSIUM BICARBONATE/CIT AC 20 MEQ TABLET.EFF NG-TUBE SCH ×2 (17:10→17:43)
[2019-03-30] MEDS: FUROSEMIDE 100 MG in SODIUM CHLORIDE 0.9% 90 ML IV SCH (17:33)
[2019-03-30] MEDS: NOREPINEPHRINE 32 MG in SODIUM CHLORIDE 0.9% 218 ML IV SCH (17:34)
[2019-03-30 17:47] LABS: Glucose,Whole Blood 106 mg/dL (75-99)
[2019-03-30] MEDS: ATORVASTATIN 20 MG TAB PO SCH (21:27)
--- NOTE | 2019-03-30 22:08 | P.PN ---
Subjective Progress Note Date: 03/30/19 Principal diagnosis: Sepsis and possible aspiration pneumonia and diverticulitis Patient initially admitted hospital with abdominal pain in this patient did have significant increase in size of abdominal lymphadenopathy and possible component of diverticulitis patient was transferred to the ICU because of hypotension , morning of 03/26/2019 the patient did have significant change in his clinical condition and the patient ripped off his IV and leads subsequently did have sign ificant drop in the blood pressure and respiratory distress patient ended up getting intubated on 03/26/2019. On today's evaluation that is 03/30/2019, the patient is afebrile , the patient FiO2 is stable and the patient off pressors , the patient has been tolerating his tube feeds and no diarrhea reported by the nursing staff, the patient sedation has been slowly decreased and the patient is slowly waking up Objective - Vital Signs Vital signs: Vital Signs Temp 98.8 F 03/30/19 08:00 Pulse 92 03/30/19 11:29 Resp 22 03/30/19 11:00 BP 92/67 03/30/19 07:00 Pulse Ox 99 03/30/19 11:00 Intake & Output 03/29/19 03/30/19 03/30/19 18:59 06:59 18:59 Intake Total 2393.364 917.02 945.834 Output Total 1950 2170 1200 Balance 443.364 -1252.98 -254.166 Weight 91.7 kg 90.8 kg Intake: IV 612 817 155 Cefepime 2 gm In Sodium 100 100 100 Chloride 0.9% 100 ml @ 200 mls/hr IVPB Q12H [facility] Rx#:[id number] Mvi, Adult No.4 with Vit 330 330 K 10 ml Trace (Conc-1Ml/ Dose) 1 ml Sodium Acetate 30 meq Potassium Chloride 10 meq Potassium Phosphate 10 mmol Calcium Gluconate 1 gm In Amino Acid 5%-D15w 1,000 ml @ 30 mls/hr IV .Q24H [facility] Rx#:[id number] Pressure bags 0.9 72 72 30 Sodium Chloride 0.9% 1, 110 65 25 000 ml @ 5 mls/hr IV . Q24H [facility] Rx#:[id number] Vancomycin 1,500 mg In 250 Sodium Chloride 0.9% 250 ml @ 125 mls/hr IVPB Q16H [facility] Rx#:[id number] Intake, IV Titration 1411.364 60.02 740.834 Amount Amiodarone 300 mg In 212.5 Dextrose 5% in Water 250 ml @ 0.5 MG/MIN 25 mls/hr IV .Q10H [facility] Rx#: [id number] Cefepime 2 gm In Sodium 100 Chloride 0.9% 100 ml @ 200 mls/hr IVPB Q12H [facility] Rx#:[id number] Magnesium Sulfate-D5w Pmx 200 1 gm In Dextrose/Water 1 100ml.bag @ 100 mls/hr IVPB Q1H [facility] Rx#: [id number] Mvi, Adult No.4 with Vit 723.5 K 10 ml Trace (Conc-1Ml/ Dose) 1 ml Sodium Acetate 30 meq Potassium Chloride 10 meq Potassium Phosphate 10 mmol Calcium Gluconate 1 gm In Amino Acid 5%-D15w 1,000 ml @ 30 mls/hr IV .Q24H [facility] Rx#:[id number] Norepinephrine 4 mg In 275.364 140.789 Sodium Chloride 0.9% 250 ml @ 0.05 MCG/KG/MIN 15. 122 mls/hr IV .[id number] [facility] Rx#:[id number] Potassium Chloride 10 meq 100 In Water For Injection 1 100ml.bag @ 100 mls/hr IVPB Q1H [facility] Rx#: [id number] Potassium Chloride 20 meq 100 In Water For Injection 1 100ml.bag @ 50 mls/hr IVPB Q2H [facility] Rx#: [id number] Propofol 1,000 mg In 200.000 55.02 100.045 Empty Bag 1 bag @ Titrate IV .Q0M [facility] Rx#: [id number] Sodium Chloride 0.9% 1, 5 000 ml @ 5 mls/hr IV . Q24H [facility] Rx#:[id number] Tube Feeding 360 40 50 Lipid 10 Sodium Chloride 0.9% 1, 10 000 ml @ 5 mls/hr IV . Q24H [facility] Rx#:[id number] Output: Urine 1950 2170 1200 Other: Voiding Method Indwelling Catheter Indwelling Catheter # Voids 2 ABP, PAP, CO, CI - Last Documented Arterial Blood Pressure 96/52 - Exam GENERAL DESCRIPTION: The patient currently intubated on the vent and sedated HEENT: [Oral mucosa is dry and patient is orally intubated] EYES : [pallor or scleral icterus] RESPIRATORY SYSTEM: [Unlabored breathing decreased breath sound at the base] CARDIA VASCULAR SYSTEM: [S1-S2 regular rate and rhythm no murmur] GI: [Abdominal soft there's no tenderness no organomegaly] EXTREMITIES: [No edema feet] - Labs CBC & Chem 7: 03/30/19 06:00 03/30/19 15:15 Labs: Abnormal Lab Results - Last 24 Hours (Table) 03/29/19 03/29/19 03/29/19 Range/Units 11:38 17:14 18:20 WBC (3.8-10.6) k/uL RBC (4.30-5.90) m/uL Hgb (13.0-17.5) gm/dL Hct (39.0-53.0) % RDW (11.5-15.5) % Lymphocytes # (Manual) (1.0-4.8) k/uL Monocytes # (Manual) (0-1.0) k/uL ABG pH (7.35-7.45) ABG pCO2 (35-45) mmHg ABG pO2 (83-108) mmHg ABG O2 Saturation (94-97) % Potassium 3.3 L (3.5-5.1) mmol/L Chloride (98-107) mmol/L BUN (9-20) mg/dL Glucose (74-99) mg/dL POC Glucose (mg/dL) 162 H 141 H (75-99) mg/dL Calcium (8.4-10.2) mg/dL 03/29/19 03/30/19 03/30/19 Range/Units 23:33 05:00 06:00 WBC (3.8-10.6) k/uL RBC (4.30-5.90) m/uL Hgb (13.0-17.5) gm/dL Hct (39.0-53.0) % RDW (11.5-15.5) % Lymphocytes # (Manual) (1.0-4.8) k/uL Monocytes # (Manual) (0-1.0) k/uL ABG pH 7.47 H (7.35-7.45) ABG pCO2 32 L (35-45) mmHg ABG pO2 147 H (83-108) mmHg ABG O2 Saturation 99.0 H (94-97) % Potassium (3.5-5.1) mmol/L Chloride 114 H (98-107) mmol/L BUN 32 H (9-20) mg/dL Glucose 110 H (74-99) mg/dL POC Glucose (mg/dL) 148 H (75-99) mg/dL Calcium 7.7 L (8.4-10.2) mg/dL 03/30/19 03/30/19 Range/Units 06:00 06:10 WBC 69.2 H* (3.8-10.6) k/uL RBC 3.14 L (4.30-5.90) m/uL Hgb 9.0 L (13.0-17.5) gm/dL Hct 28.5 L (39.0-53.0) % RDW 17.8 H (11.5-15.5) % Lymphocytes # (Manual) 61.59 H (1.0-4.8) k/uL Monocytes # (Manual) 1.38 H (0-1.0) k/uL ABG pH (7.35-7.45) ABG pCO2 (35-45) mmHg ABG pO2 (83-108) mmHg ABG O2 Saturation (94-97) % Potassium (3.5-5.1) mmol/L Chloride (98-107) mmol/L BUN (9-20) mg/dL Glucose (74-99) mg/dL POC Glucose (mg/dL) 104 H (75-99) mg/dL Calcium (8.4-10.2) mg/dL Microbiology - Last 24 Hours (Table) 03/27/19 01:10 Blood Culture - Preliminary Blood No Growth after 72 hours 03/23/19 18:07 Blood Culture - Final Blood No Growth after 144 hours 03/28/19 10:55 Urine Culture - Final Urine,Voided Assessment and Plan Assessment: 1-patient was initially admitted hospital with abdominal pain from significant decrease in size of his lymphadenopathy with concern for possible compression of the intestine with component of ischemic colitis versus diverticulitis 2-patient with new fever after the patient did have significant change in his clinical condition with acute vent dependent respiratory failure with a possible component of aspiration pneumonitis--- blood and sputum cultures remains to be negative so far Plan: 1-the patient be continued on vancomycin pharmacy to dose target trough of 15 along with cefepime and Flagyl, however the cultures remains to be negative , antibiotics were slowly weaned off or monitor his clinical course closely Continue supportive care Time with Patient: Less than 30
[2019-03-30 23:47] LABS: Glucose,Whole Blood 121 mg/dL (75-99)
[2019-03-31] MEDS: INSULIN ASPART (NovoLOG) 100 UNIT/ML VIAL SQ SCH ×4 (01:15→18:15)
[2019-03-31] MEDS ORDERED: Potassium Replacement Protocol 1 EACH MISC MISCELLANE PRN (01:23)
[2019-03-31] MEDS ORDERED: POTASSIUM BICARBONATE/CIT AC 20 MEQ TABLET.EFF NG-TUBE SCH (02:00)
[2019-03-31] MEDS: PROPOFOL 1,000 MG in EMPTY BAG 1 BAG IV SCH (02:43)
[2019-03-31] MEDS: IPRATROPIUM-ALBUTEROL 3 ML NEB INHALATION SCH ×5 (03:28→19:11)
[2019-03-31 05:05] LABS: ABG Base Excess 3.7 mmol/L; ABG HCO3 27 mmol/L (21-25); ABG Oxygen Saturation 99.2 % (94-97); ABG PCO2 34 mmHg (35-45); ABG PO2 135 mmHg (83-108); ABG TCO2 28 mmol/L (19-24)
[2019-03-31 05:24] LABS: Calcium 8.1 mg/dL (8.4-10.2); Magnesium 1.8 mg/dL (1.6-2.3); Phosphorus 3.2 mg/dL (2.5-4.5); Potassium 3.9 mmol/L (3.5-5.1)
[2019-03-31 05:27] LABS: Anisocytosis Slight; HCT 27.9 % (39.0-53.0); HGB 8.9 gm/dL (13.0-17.5); Hypochromasia Slight; MCH 28.9 pg (25.0-35.0); MCHC 31.8 g/dL (31.0-37.0); MCV 90.9 fL (80.0-100.0); Mean Platelet Volume 8.1; Platelet Count 208 k/uL (150-450); Poikilocytosis Slight; RBC 3.07 m/uL (4.30-5.90); RDW 19.5 % (11.5-15.5)
[2019-03-31 05:29] LABS: WBC 85.6 k/uL (3.8-10.6)
[2019-03-31 05:48] LABS: Eosinophils # (M) 0.86 k/uL (0-0.7); Lymphocytes # (M) 77.04 k/uL (1.0-4.8); Neutrophils % (M) 9 %; Nucleated Red Blood Cells 0 /100 WBC (0-0); Total Cells Counted 100
[2019-03-31 05:49] LABS: Poikilocytosis (M) Present; Polychromasia Present
[2019-03-31] MEDS: VANCOMYCIN 1,500 MG in SODIUM CHLORIDE 0.9% 250 ML IVPB SCH (06:37)
[2019-03-31 07:00] LABS: Glucose,Whole Blood 136 mg/dL (75-99)
--- NOTE | 2019-03-31 07:19 | P.PN ---
Subjective Progress Note Date: 03/31/19 Principal diagnosis: Acute non-ST elevation [place] This is a pleasant 78-year-old gentleman with a past medical history significant for paroxysmal atrial fibrillation as well as history of CLL who presented to the hospital with progressive abdominal discomfort and was found to have large mass in the abdomen. Subsequently the patient developed acute respiratory distress requiring intubation and mechanical ventilation. He was ruled for acute non-ST patient myocardial infarction which was treated medically. The echocardiogram revealed and impaired LV function with wall motion abnormalities. On follow-up with the patient today, March [id number], the patient continues to be intubated on mechanical ventilation. He has been requiring small dose of vasopressors as well as was norepinephrine. He has been in normal sinus mechanism. We are continuing to treat the acute non-ST patient myocardial infarction medically at this point. He is on aspirin, as well as metoprolol. And for the atrial fibrillation he is on metoprolol as well as Eliquis. Beside that he continues to be on Lasix drip. The hemoglobin this morning is 8.9. The creatinine is a stable. Objective - Vital Signs Vital signs: Vital Signs Temp 98.7 F 03/31/19 00:00 Pulse 90 03/31/19 07:00 Resp 23 03/31/19 07:00 BP 94/58 03/31/19 07:00 Pulse Ox 98 03/31/19 07:00 Intake & Output 03/30/19 03/31/19 03/31/19 18:59 06:59 18:59 Intake Total 1713.435 677.524 Output Total 2035 2605 Balance -321.565 -1927.476 Intake: IV 232 117 Cefepime 2 gm In Sodium 100 Chloride 0.9% 100 ml @ 200 mls/hr IVPB Q12H [facility] Rx#:[id number] Pressure bags 0.9 72 42 Sodium Chloride 0.9% 1, 60 75 000 ml @ 5 mls/hr IV . Q24H [facility] Rx#:[id number] Intake, IV Titration 1011.435 80.524 Amount Cefepime 2 gm In Sodium 100 Chloride 0.9% 100 ml @ 200 mls/hr IVPB Q12H [facility] Rx#:[id number] Magnesium Sulfate-D5w Pmx 200 1 gm In Dextrose/Water 1 100ml.bag @ 100 mls/hr IVPB Q1H [facility] Rx#: [id number] Norepinephrine 32 mg In 1.17 Sodium Chloride 0.9% 218 ml @ 0.05 MCG/KG/MIN 2. 128 mls/hr IV .Q24H [facility] Rx#:[id number] Norepinephrine 4 mg In 140.789 Sodium Chloride 0.9% 250 ml @ 0.05 MCG/KG/MIN 15. 122 mls/hr IV .[id number] [facility] Rx#:[id number] Potassium Chloride 10 meq 100 In Water For Injection 1 100ml.bag @ 100 mls/hr IVPB Q1H [facility] Rx#: [id number] Potassium Chloride 20 meq 100 In Water For Injection 1 100ml.bag @ 50 mls/hr IVPB Q2H [facility] Rx#: [id number] Propofol 1,000 mg In 119.476 80.524 Empty Bag 1 bag @ Titrate IV .Q0M [facility] Rx#: [id number] Vancomycin 1,500 mg In 250 Sodium Chloride 0.9% 250 ml @ 125 mls/hr IVPB Q16H [facility] Rx#:[id number] Tube Feeding 470 480 Output: Urine 2035 2605 Other: Voiding Method Indwelling Catheter Indwelling Catheter # Voids 2 2 ABP, PAP, CO, CI - Last Documented Arterial Blood Pressure 107/53 - Constitutional General appearance: Present: no acute distress - Respiratory Respiratory: bilateral: diminished - Cardiovascular Rhythm: regular Heart sounds: normal: S1, S2 - Labs CBC & Chem 7: 03/31/19 05:00 03/31/19 05:00 Labs: Abnormal Lab Results - Last 24 Hours (Table) 03/30/19 03/30/19 03/30/19 Range/Units 06:00 12:26 17:35 WBC (3.8-10.6) k/uL RBC (4.30-5.90) m/uL Hgb (13.0-17.5) gm/dL Hct (39.0-53.0) % RDW (11.5-15.5) % Lymphocytes # (Manual) 61.59 H (1.0-4.8) k/uL Monocytes # (Manual) 1.38 H (0-1.0) k/uL Eosinophils # (Manual) (0-0.7) k/uL ABG pH (7.35-7.45) ABG pCO2 (35-45) mmHg ABG pO2 (83-108) mmHg ABG HCO3 (21-25) mmol/L ABG Total CO2 (19-24) mmol/L ABG O2 Saturation (94-97) % Chloride (98-107) mmol/L BUN (9-20) mg/dL Glucose (74-99) mg/dL POC Glucose (mg/dL) 116 H 106 H (75-99) mg/dL Calcium (8.4-10.2) mg/dL 03/30/19 03/31/19 03/31/19 Range/Units 23:35 05:00 05:00 WBC (3.8-10.6) k/uL RBC (4.30-5.90) m/uL Hgb (13.0-17.5) gm/dL Hct (39.0-53.0) % RDW (11.5-15.5) % Lymphocytes # (Manual) (1.0-4.8) k/uL Monocytes # (Manual) (0-1.0) k/uL Eosinophils # (Manual) (0-0.7) k/uL ABG pH 7.50 H (7.35-7.45) ABG pCO2 34 L (35-45) mmHg ABG pO2 135 H (83-108) mmHg ABG HCO3 27 H (21-25) mmol/L ABG Total CO2 28 H (19-24) mmol/L ABG O2 Saturation 99.2 H (94-97) % Chloride 108 H (98-107) mmol/L BUN 39 H (9-20) mg/dL Glucose 134 H (74-99) mg/dL POC Glucose (mg/dL) 121 H (75-99) mg/dL Calcium 8.1 L (8.4-10.2) mg/dL 03/31/19 03/31/19 Range/Units 05:00 06:49 WBC 85.6 H* (3.8-10.6) k/uL RBC 3.07 L (4.30-5.90) m/uL Hgb 8.9 L (13.0-17.5) gm/dL Hct 27.9 L (39.0-53.0) % RDW 19.5 H (11.5-15.5) % Lymphocytes # (Manual) 77.04 H (1.0-4.8) k/uL Monocytes # (Manual) (0-1.0) k/uL Eosinophils # (Manual) 0.86 H (0-0.7) k/uL ABG pH (7.35-7.45) ABG pCO2 (35-45) mmHg ABG pO2 (83-108) mmHg ABG HCO3 (21-25) mmol/L ABG Total CO2 (19-24) mmol/L ABG O2 Saturation (94-97) % Chloride (98-107) mmol/L BUN (9-20) mg/dL Glucose (74-99) mg/dL POC Glucose (mg/dL) 136 H (75-99) mg/dL Calcium (8.4-10.2) mg/dL Microbiology - Last 24 Hours (Table) 03/27/19 01:10 Blood Culture - Preliminary Blood No Growth after 96 hours Assessment and Plan Assessment: Assessment #1 acute respiratory failure secondary to pneumonia #2 acute non-ST elevation myocardial infarction #3 ischemic cardiomyopathy #4 paroxysmal atrial fibrillation #5 chronic lymphocytic leukemia #6 severe anemia Plan #1 continue the current medical regimen #2 probably continue the Lasix drip for additional 24 hours #3 continue monitor the hemoglobin as well as kidney function #4 repeat the echocardiogram in the next few days #5 follow-up with the patient
--- NOTE | 2019-03-31 08:14 | XR ---
EXAMINATION TYPE: XR chest 1V portable DATE OF EXAM: 03/31/2019 COMPARISON: 03/30/2019 HISTORY: SOB, Follow Up FINDINGS: Indwelling tubes and catheters are unchanged. Basilar atelectasis and/or infiltrates with bilateral pleural effusions remain stable. Stable appearance of the cardio-mediastinal structures at this time. Pleural effusion unchanged. IMPRESSION: 1. Stable portable chest. Clinical correlation and follow up until resolution is recommended.
[2019-03-31] MEDS: CHLORHEXIDINE GLUCONATE 15 ML CUP MUCOUS MEM SCH (09:14)
[2019-03-31] MEDS: AMIODARONE 200 MG TAB PO SCH ×2 (09:14→20:26)
[2019-03-31] MEDS: ASPIRIN 81 MG PO SCH (09:14)
[2019-03-31] MEDS: APIXABAN 5 MG TAB PO SCH ×2 (09:14→20:26)
[2019-03-31] MEDS: metroNIDAZOLE 500 MG TAB PO SCH (09:14)
[2019-03-31] MEDS: METOPROLOL TARTRATE 25 MG TAB PO SCH ×2 (09:15→20:26)
[2019-03-31] MEDS: SODIUM CHLORIDE 0.9% 1,000 ML IV SCH (09:21)
[2019-03-31 09:30] LABS: ABG Base Excess 3.7 mmol/L; ABG HCO3 27 mmol/L (21-25); ABG Oxygen Saturation 99.2 % (94-97); ABG PCO2 35 mmHg (35-45); ABG PO2 148 mmHg (83-108); ABG TCO2 28 mmol/L (19-24)
[2019-03-31] MEDS: MAGNESIUM SULFATE-D5W PMX 1 GM in DEXTROSE/WATER 1 100ML.BAG IVPB SCH ×2 (10:40→12:26)
--- NOTE | 2019-03-31 11:14 | P.PN ---
Subjective Progress Note Date: 03/31/19 Patient seen and examined in follow-up, recently extubated currently on CPAP and tolerating it without difficulty appears calm and relaxed, following simple commands. currently on 2-3 g of levophed. Magnesium this morning was 1.8. Leukocytosis elevated at 85.6 in patient with CLL. Nursing reporting c onstipation, the patient continues in sinus rhythm and having great urine output and continues on Lasix drip. No acute events overnight Objective - Vital Signs Vital signs: Vital Signs Temp 98 F 03/31/19 08:00 Pulse 102 H 03/31/19 10:00 Resp 27 H 03/31/19 10:00 BP 94/58 03/31/19 07:00 Pulse Ox 98 03/31/19 10:00 Intake & Output 03/30/19 03/31/19 03/31/19 18:59 06:59 18:59 Intake Total 1713.435 677.524 151.079 Output Total 2035 2605 650 Balance -321.565 -1927.476 -498.921 Weight 90.1 kg Intake: IV 232 117 48 Cefepime 2 gm In Sodium 100 Chloride 0.9% 100 ml @ 200 mls/hr IVPB Q12H [facility] Rx#:[id number] Pressure bags 0.9 72 42 18 Sodium Chloride 0.9% 1, 60 75 30 000 ml @ 5 mls/hr IV . Q24H [facility] Rx#:[id number] Intake, IV Titration 1011.435 80.524 103.079 Amount Cefepime 2 gm In Sodium 100 Chloride 0.9% 100 ml @ 200 mls/hr IVPB Q12H [facility] Rx#:[id number] Magnesium Sulfate-D5w Pmx 200 1 gm In Dextrose/Water 1 100ml.bag @ 100 mls/hr IVPB Q1H [facility] Rx#: [id number] Norepinephrine 32 mg In 1.17 45.33 Sodium Chloride 0.9% 218 ml @ 0.05 MCG/KG/MIN 2. 128 mls/hr IV .Q24H [facility] Rx#:[id number] Norepinephrine 4 mg In 140.789 Sodium Chloride 0.9% 250 ml @ 0.05 MCG/KG/MIN 15. 122 mls/hr IV .[id number] [facility] Rx#:[id number] Potassium Chloride 10 meq 100 In Water For Injection 1 100ml.bag @ 100 mls/hr IVPB Q1H [facility] Rx#: [id number] Potassium Chloride 20 meq 100 In Water For Injection 1 100ml.bag @ 50 mls/hr IVPB Q2H [facility] Rx#: [id number] Propofol 1,000 mg In 119.476 80.524 57.749 Empty Bag 1 bag @ Titrate IV .Q0M [facility] Rx#: [id number] Vancomycin 1,500 mg In 250 Sodium Chloride 0.9% 250 ml @ 125 mls/hr IVPB Q16H [facility] Rx#:[id number] Tube Feeding 470 480 Output: Urine 2035 2605 650 Other: Voiding Method Indwelling Catheter Indwelling Catheter Indwelling Catheter # Voids 2 2 ABP, PAP, CO, CI - Last Documented Arterial Blood Pressure 102/54 - Exam Constitutional: No acute distress, conversant, pleasant Eyes: Anicteric sclerae, moist conjunctiva, no lid-lag, PERRLA ENMT: NC/AT,Oropharynx clear, no erythema, exudates Neck:Supple, FROM, no masses, or JVD, No carotid bruits; No thyromegaly, left IJ in place Lungs: Diminished in the bases bilaterally otherwise equal and symmetric currently on BiPAP Cardiovascular: Heart regular in rate and rhythm, No murmurs, gallops, or rubs no peripheral edema Abdominal: Soft Nontender, nom distended, no guarding, no rebound or rigidity, Normoactive bowel sounds No hepatomegaly, No splenomegaly, No palpable mass No abdominal wall hernia noted Skin: Normal temperature, tone, texture, turgor, No induration No subcutaneous nodules, No rash, lesions, No ulcers Extremities:No digital cyanosis No clubbing, Pedal pulses intact and symmetrical Radial pulses intact and symmetrical Normal gait and station, No calf tenderness Neuro: Awake and following simple commands squeezing fingers pupils are reactive to light, no seizure activity - Labs CBC & Chem 7: 03/31/19 05:00 03/31/19 05:00 Labs: Abnormal Lab Results - Last 24 Hours (Table) 03/30/19 03/30/19 03/30/19 Range/Units 12:26 17:35 23:35 WBC (3.8-10.6) k/uL RBC (4.30-5.90) m/uL Hgb (13.0-17.5) gm/dL Hct (39.0-53.0) % RDW (11.5-15.5) % Lymphocytes # (Manual) (1.0-4.8) k/uL Eosinophils # (Manual) (0-0.7) k/uL ABG pH (7.35-7.45) ABG pCO2 (35-45) mmHg ABG pO2 (83-108) mmHg ABG HCO3 (21-25) mmol/L ABG Total CO2 (19-24) mmol/L ABG O2 Saturation (94-97) % Chloride (98-107) mmol/L BUN (9-20) mg/dL Glucose (74-99) mg/dL POC Glucose (mg/dL) 116 H 106 H 121 H (75-99) mg/dL Calcium (8.4-10.2) mg/dL 03/31/19 03/31/19 03/31/19 Range/Units 05:00 05:00 05:00 WBC 85.6 H* (3.8-10.6) k/uL RBC 3.07 L (4.30-5.90) m/uL Hgb 8.9 L (13.0-17.5) gm/dL Hct 27.9 L (39.0-53.0) % RDW 19.5 H (11.5-15.5) % Lymphocytes # (Manual) 77.04 H (1.0-4.8) k/uL Eosinophils # (Manual) 0.86 H (0-0.7) k/uL ABG pH 7.50 H (7.35-7.45) ABG pCO2 34 L (35-45) mmHg ABG pO2 135 H (83-108) mmHg ABG HCO3 27 H (21-25) mmol/L ABG Total CO2 28 H (19-24) mmol/L ABG O2 Saturation 99.2 H (94-97) % Chloride 108 H (98-107) mmol/L BUN 39 H (9-20) mg/dL Glucose 134 H (74-99) mg/dL POC Glucose (mg/dL) (75-99) mg/dL Calcium 8.1 L (8.4-10.2) mg/dL 03/31/19 03/31/19 Range/Units 06:49 09:26 WBC (3.8-10.6) k/uL RBC (4.30-5.90) m/uL Hgb (13.0-17.5) gm/dL Hct (39.0-53.0) % RDW (11.5-15.5) % Lymphocytes # (Manual) (1.0-4.8) k/uL Eosinophils # (Manual) (0-0.7) k/uL ABG pH 7.50 H (7.35-7.45) ABG pCO2 (35-45) mmHg ABG pO2 148 H (83-108) mmHg ABG HCO3 27 H (21-25) mmol/L ABG Total CO2 28 H (19-24) mmol/L ABG O2 Saturation 99.2 H (94-97) % Chloride (98-107) mmol/L BUN (9-20) mg/dL Glucose (74-99) mg/dL POC Glucose (mg/dL) 136 H (75-99) mg/dL Calcium (8.4-10.2) mg/dL Microbiology - Last 24 Hours (Table) 03/27/19 01:10 Blood Culture - Preliminary Blood No Growth after 96 hours Assessment and Plan (1) Shock Narrative/Plan: * Multifactorial due to cardiogenic secondary to non-STEMI with ICM superimposed on septic shock due PNA and intrabdominal pathology * Patient continued on IV pressors currently down to 4 g of levophed , CVP 8-9 * Continued on broad-spectrum antibiotics with cefepime and vancomycin and Flagyl with infectious disease following Current Visit: Yes Status: Acute Code(s): R57.9 - SHOCK, UNSPECIFIED SNOMED Code(s): 48711810 (2) Acute respiratory failure with hypoxia Narrative/Plan: * Secondary to septic shock with superimposed by basilar pneumonia with pleural effusions small to moderate in size * Patient recently extubated 03/31 continues on BiPAP * chest x-ray today showing stable basilar atelectasis and infiltrates with bilateral pleural effusions * Continue scheduled and when necessary DuoNeb bronchodilator breathing treatments Current Visit: Yes Status: Acute Priority: High Code(s): J96.01 - ACUTE RESPIRATORY FAILURE WITH HYPOXIA SNOMED Code(s): 09585573 (3) Non-STEMI (non-ST elevated myocardial infarction) Narrative/Plan: * Initial troponin less than 0.012. EKG ordered yesterday for concerns of tachycardia, with ST depression, troponin reordered to rule out ACS. * Repeat troponin 3.650, 8.210, 20.4, 31. Possibly related to true cardiac event from severe anemia and hypotension. * Echocardiogram shows EF 35-40% with hypokinetic wall motion. * Continue Telemetry monitoring. Continue aspirin. * As per Dr. Rajput, not candidate for aggressive cardiac workup. Follow cardiology recommendations. No heparin due to severe anemia. Current Visit: Yes Status: Acute Code(s): I21.4 - NON-ST ELEVATION (NSTEMI) MYOCARDIAL INFARCTION SNOMED Code(s): 05457318 (4) Ischemic cardiomyopathy Narrative/Plan: * Secondary to non STEMI * Echocardiogram revealed impaired LV function EF of 35-40% with wall motion abnormalities * Continue metoprolol continue aspirin monitor urine output and continue on Lasix drip * Cardiology following Current Visit: Yes Status: Acute Code(s): I25.5 - ISCHEMIC CARDIOMYOPATHY SNOMED Code(s): 661769559 (5) Chronic a-fib Narrative/Plan: * Currently rate controlled. Plan: Continue metoprolol and Amiodarone PO * Continue anticoagulation with eliquis Current Visit: Yes Status: Acute Code(s): I48.2 - CHRONIC ATRIAL FIBRILLATION SNOMED Code(s): 354048903 (6) Leukocytosis Narrative/Plan: * CLL superimposed on sepsis concern for progression versus reactive inflammation * Appreciate hematology recommendations Current Visit: Yes Status: Acute Priority: Medium Code(s): D72.829 - ELEVATED WHITE BLOOD CELL COUNT, UNSPECIFIED SNOMED Code(s): 652898634 (7) CLL (chronic lymphocytic leukemia) Narrative/Plan: * Profound lymphocytosis thrombocytopenia and anemia consistent with underlying CLL * Noted significant enlargement of intra-abdominal lymphadenopathy causing mass effect and abdominal structures including the bowel and kidneys Current Visit: No Status: Chronic Priority: High Code(s): C91.10 - CHRONIC LYMPHOCYTIC LEUK OF B-CELL TYPE NOT ACHIEVE REMIS SNOMED Code(s): 58084633 Plan: Disposition * Plan to titrate up high protein tube feeds * Appreciate consultants recommendations, continue to monitor daily and update family with plan of care Patient critical family aware *
[2019-03-31] MEDS: CEFEPIME 2 GM in SODIUM CHLORIDE 0.9% 100 ML IVPB SCH ×2 (11:28→20:24)
[2019-03-31 12:49] LABS: Glucose,Whole Blood 113 mg/dL (75-99)
--- NOTE | 2019-03-31 13:40 | P.PN ---
Subjective Progress Note Date: 03/31/19 On today's evaluation of 03/27/2019 I'm seeing this patient for a follow-up. The patient is currently intubated on a mechanical ventilator. The patient is known history of CLL receiving FOLFOX treatment on outpatient basis.. The patient came in for increased abdominal pain and subsequently the patient went into respiratory failure and hemodynamic collapse. The patient suffered an acute non-ST segment elevation myocardial infarction and troponin peaked at 31. Cardiology is on the case This morning, the patient was sedated with propofol at 50 g per KG per minute. The patient is intubated on a mechanical ventilator. Earlier this morning the patient was on a volume cycle mode of ventilation with a tidal volume of 600 with a rate of 20, FiO2 of 40% and a PEEP of 5. The patient is intubated with a #8 ET tube. The blood gases from this morning showed a pH of 7.39 with a pCO2 of 28 and pO2 of 147. The patient was still having higher tidal volumes and is minute ventilation was quite elevated. Based on all this, I increased his tidal volume of 2 600 which made the patient much more comfortable and sickness with a mechanical ventilator. The patient is afebrile. The patient is hypotensive and earlier this morning he was on norepinephrine infusion running at a rate of 21 mcg/m. His urine output is in order of 60 mL an hour. The patient is on IV fluids at 0.9 at the rate of 100 mL an hour. The patient is in atrial fibrillation. He is on an amiodarone drip at 0.5 g per minute as a maintenance. He has a left IJ triple-lumen catheter and the CVP is in the range of 8 and 9 mmHg. The patient had a chest x-ray this morning that showed bilateral basilar infiltrates and bilateral pleural effusions are small. The patient also had some mild cardiomegaly. ET tube was lying low with a tip being around 1. 6 cm above the pavel. The patient remains nothing by mouth. He remains well covered with a combination of cefepime and Flagyl and vancomycin as broad-spectrum antibiotic coverage. Urine culture from 2018 has been negative. Sputum culture from 03/26/2019 is negative and the blood culture from 516 has been negative and the repeat blood culture was sent on 03/27/2019. Hematologic profile was quite abnormal and then consistent with the patient's history of CLL. Hemoglobin is at 7.3 with a platelet count of 149 and a white cell count of 82.3. Anything else no abdominal distention. OG tube is in place and there is no significant drainage from the orogastric tube. Echocardiogram showed segmental wall motion abnormalities along with an ejection fraction of 35-40%. On 03/28/2019 I'm seeing this patient for a follow-up. He was intubated sedated on a mechanical ventilator. The patient is currently on assist control mode of ventilation with a tidal volume of 6000 and FiO2 of 40% with a PEEP of 5 and the rate of 20. Blood gases from today showed a pH of 7.38 with a pCO2 of 27 and pO2 of 159. His chest x-ray still showing bilateral pulmonary infiltrates and cardiomegaly and ET tube is in good location. The patient is producing good urine output and the fluid balance over the past 24 hours has been +3.8 L. He has converted back into normal sinus rhythm. He is on low-dose norepinephrine infusion which is running at 4-5 g per minute. Antibiotic coverage includes a combination of cefepime and vancomycin. He is also on Flagyl. He had a low- grade temperature yesterday with a T-max of 100.2 and currently he is afebrile. He remains nothing by mouth. No significant output from his orogastric tube. No significant abdominal distention. Bowel sounds are hypoactive, nearly absent yet there is no abdominal distention. His echo cardiac damage showed an ejection fraction of 35-40% along with segmental wall motion abnormalities. He is receiving IV fluids at the rate of 100 mL an hour. Discussed the case with cardiology. Discussed the case with oncology. On 03/29/2019 the patient remains intubated on a mechanical ventilator. The patient is sedated with propofol. He is calm and comfortable. Propofol is running at 40 mics. Remains on a mechanical ventilator. Essentially on the same vent setting. Tidal volumes at 6000 with an FiO2 of 40% and PEEP of 5. Blood gas shows further improvement in oxygenation. The pH is at 7.46 and a pCO2 of 28 and pO2 of 163. The patient is a component of acute respiratory alkalosis. Chest x-ray still showing better pulmonary infiltrates and effusion lung bases bilaterally consistent with CHF. The patient is afebrile. Hemodynamically, the patient is on few echograms of norepinephrine infusion for blood pressure support. The patient is producing adequate amount of urine outpu t. The patient was started on IV Lasix. The patient is eating push towards a negative fluid balance over the next 24 hours. The cardiac rhythm is back to atrial fibrillation. The patient was seen again by cardiology. The rate is controlled for now and the patient is on 400 mg of amiodarone by mouth twice a day and metoprolol 12.5 mg by mouth twice a day and Eliquis for long-term anticoagulation was also started. We are hoping to achieve a negative fluid balance over the next 24 hours. Meanwhile, I'm willing to give this patient a sedation holiday and assess his underlying neuro status while being off sedation. He is afebrile. All of the cultures of negative. He is on a broad-spectrum antibiotic coverage utilizing a combination of cefepime and vancomycin. He is also on Flagyl. The patient was started on enteral feeding for nutritional support at the rate of 20 mL an hour of vital high protein. He was able to tolerate that without any significant residual pain no abdominal d istention pain no bowel movements yet. We are going to advance the tube feeds and hold the TPN for now and we're going to continue the current TPN bag and stop it following that as the patient seems to be tolerating tube feeds for the time being. Family is at the bedside. The condition was extended to them at length. IV fluids are currently at KVO. On 03/30/2019 I'm seeing this patient for follow-up. Still intubated on a mechanical ventilator. He was still on the same mechanical ventilator settings with the assist control mode at a tidal volume of 500 rate of 20, and FiO2 of 40% and a PEEP of 5 and a blood gas showed a pH of 7.47 with a pCO2 of 32 and pO2 of 147. Chest x-ray showed stable findings of breath the pleural effusion. Nevertheless, the patient was achieving a good negative fluid balance. He was quite successful mechanical ventilator. I give him a sedation holiday. Discontinue the propofol and following that the patient woke up initially was very drowsy and is the day went by, he became progressively more awake and alert. Was found to more awake, the patient had a weaning parameters that showed a tidal volumes ranging between 450 and 550 with a vital capacity of 951 and a minute ventilation of 13 with a rapid shallow breathing index of 50. Accordingly, the patient was given a spontaneous breathing trial with a pressure support of 5 and a PEEP of 5 and following that he became uncomfortable, restless, tachypneic and he went into atrial fibrillation. The child was called and the patient was placed back on low-dose sedation with propofol time microgra ms per KG per minute. No fever. No chills. The patient is diuresing and the patient is achieving a negative fluid balance. He is receiving his tube feeds and is tolerating this without any major difficulties. He remains on a combination of cefepime and vancomycin as broad-spectrum antibiotic coverage. He remains on diuretics and the patient is receiving IV Lasix 40 mg every 12 hours. We'll hope to achieve a negative fluid balance over the next 24 hours. Blood pressure is being supported with a low dose of norepinephrine infusion. On 03/31/2019, the patient was taken off sedation and he did very well to the point where he stayed awake and alert and he was able to follow commands without any major difficulties. Weaning parameters were checked and the numbers looked adequate. The patient was given a spontaneous breathing trial and following that the patient was extubated to a BiPAP. Currently is on a BiPAP of 10/5 cm of water. Note that the blood gas post spontaneous breathing trial showed a pH of 7.5 with a pCO2 of 35 and pO2 of 148 and this was on a CPAP trial with a pres sure support of 5 and a PEEP of 5 and FiO2 of 40%. Chest x-ray is showing some improvement in the volume status. There is still bilateral pleural effusion. The patient was started on a Lasix drip yesterday at a rate of 5 mg an hour. He has been producing excellent urine output. Her net fluid balance of been -2.2 L for now and will going to continue the Lasix to 40 another 24 hours. Edema is approving all 4 extremities. The patient is in a sinus rhythm. The patient is on 2.5 g per minute of norepinephrine infusion. Afebrile. Still on same antibiotic coverage. White cell count is at 85. Hemoglobin was at 8.9. Renal function stable. He was tolerating his tube feeds earlier and tube feeds were discontinued as the patient was extubated to BiPAP. Objective - Vital Signs Vital signs: Vital Signs Temp 98.3 F 03/31/19 12:00 Pulse 89 03/31/19 13:00 Resp 29 H 03/31/19 13:00 BP 96/69 03/31/19 11:00 Pulse Ox 98 03/31/19 13:00 Intake & Output 03/30/19 03/31/19 03/31/19 18:59 06:59 18:59 Intake Total 1713.435 677.524 183.079 Output Total 2035 2605 1175 Balance -321.565 -1927.476 -991.921 Weight 90.1 kg Intake: IV 232 117 80 Cefepime 2 gm In Sodium 100 Chloride 0.9% 100 ml @ 200 mls/hr IVPB Q12H [facility] Rx#:[id number] Pressure bags 0.9 72 42 30 Sodium Chloride 0.9% 1, 60 75 50 000 ml @ 5 mls/hr IV . Q24H [facility] Rx#:[id number] Intake, IV Titration 1011.435 80.524 103.079 Amount Cefepime 2 gm In Sodium 100 Chloride 0.9% 100 ml @ 200 mls/hr IVPB Q12H [facility] Rx#:[id number] Magnesium Sulfate-D5w Pmx 200 1 gm In Dextrose/Water 1 100ml.bag @ 100 mls/hr IVPB Q1H [facility] Rx#: [id number] Norepinephrine 32 mg In 1.17 45.33 Sodium Chloride 0.9% 218 ml @ 0.05 MCG/KG/MIN 2. 128 mls/hr IV .Q24H [facility] Rx#:[id number] Norepinephrine 4 mg In 140.789 Sodium Chloride 0.9% 250 ml @ 0.05 MCG/KG/MIN 15. 122 mls/hr IV .[id number] [facility] Rx#:[id number] Potassium Chloride 10 meq 100 In Water For Injection 1 100ml.bag @ 100 mls/hr IVPB Q1H [facility] Rx#: [id number] Potassium Chloride 20 meq 100 In Water For Injection 1 100ml.bag @ 50 mls/hr IVPB Q2H [facility] Rx#: [id number] Propofol 1,000 mg In 119.476 80.524 57.749 Empty Bag 1 bag @ Titrate IV .Q0M [facility] Rx#: [id number] Vancomycin 1,500 mg In 250 Sodium Chloride 0.9% 250 ml @ 125 mls/hr IVPB Q16H [facility] Rx#:[id number] Tube Feeding 470 480 Output: Urine 6281 8230 1175 Other: Voiding Method Indwelling Catheter Indwelling Catheter Indwelling Catheter # Voids 2 2 ABP, PAP, CO, CI - Last Documented Arterial Blood Pressure 105/51 - Exam Gen. appearance, comfortable artery off sedation and the patient on a BiPAP at a pressure of 10/5 cm of water. FiO2 is being adjusted to maintain saturation above 90%. Head exam was generally normal. There was no scleral icterus or corneal arcus. Mucous membranes were moist. Neck was supple and without jugular venous distension, thyromegaly, or carotid bruits. Carotids were easily palpable bilaterally. There was no adenopathy. The patient has an orogastric and orotracheal tube are both of them are in place and the patient has a left IJ triple-lumen catheter. Lungs sounds are diminished bilaterally. Breath sounds are otherwise equal and symmetrical. Heart sounds are irregular S1-S2 consistent with atrial fibrillation. No significant murmurs appreciated. No right ventricular heave or thrill. Abdominal exam revealed normal bowel sounds. The abdomen was soft, non-tender, and without masses, organomegaly, or appreciable enlargement of the abdominal aorta. Extremities are warm. There is equal and symmetrical pulses in lower extremities bilaterally with +1 pulses. No cyanosis. No clubbing. There is improving edema in lower extremities bilaterally. Neurologically the patient is awake and alert and the patient is following simple commands. Is moving all 4 extremities without any limitation. Examination of the skin revealed no evidence of significant rashes, suspicious appearing nevi or other concerning lesions. - Labs CBC & Chem 7: 03/31/19 05:00 03/31/19 05:00 Labs: Abnormal Lab Results - Last 24 Hours (Table) 03/30/19 03/30/19 03/31/19 Range/Units 17:35 23:35 05:00 WBC (3.8-10.6) k/uL RBC (4.30-5.90) m/uL Hgb (13.0-17.5) gm/dL Hct (39.0-53.0) % RDW (11.5-15.5) % Lymphocytes # (Manual) (1.0-4.8) k/uL Eosinophils # (Manual) (0-0.7) k/uL ABG pH (7.35-7.45) ABG pCO2 (35-45) mmHg ABG pO2 (83-108) mmHg ABG HCO3 (21-25) mmol/L ABG Total CO2 (19-24) mmol/L ABG O2 Saturation (94-97) % Chloride 108 H (98-107) mmol/L BUN 39 H (9-20) mg/dL Glucose 134 H (74-99) mg/dL POC Glucose (mg/dL) 106 H 121 H (75-99) mg/dL Calcium 8.1 L (8.4-10.2) mg/dL 03/31/19 03/31/19 03/31/19 Range/Units 05:00 05:00 06:49 WBC 85.6 H* (3.8-10.6) k/uL RBC 3.07 L (4.30-5.90) m/uL Hgb 8.9 L (13.0-17.5) gm/dL Hct 27.9 L (39.0-53.0) % RDW 19.5 H (11.5-15.5) % Lymphocytes # (Manual) 77.04 H (1.0-4.8) k/uL Eosinophils # (Manual) 0.86 H (0-0.7) k/uL ABG pH 7.50 H (7.35-7.45) ABG pCO2 34 L (35-45) mmHg ABG pO2 135 H (83-108) mmHg ABG HCO3 27 H (21-25) mmol/L ABG Total CO2 28 H (19-24) mmol/L ABG O2 Saturation 99.2 H (94-97) % Chloride (98-107) mmol/L BUN (9-20) mg/dL Glucose (74-99) mg/dL POC Glucose (mg/dL) 136 H (75-99) mg/dL Calcium (8.4-10.2) mg/dL 03/31/19 03/31/19 Range/Units 09:26 12:38 WBC (3.8-10.6) k/uL RBC (4.30-5.90) m/uL Hgb (13.0-17.5) gm/dL Hct (39.0-53.0) % RDW (11.5-15.5) % Lymphocytes # (Manual) (1.0-4.8) k/uL Eosinophils # (Manual) (0-0.7) k/uL ABG pH 7.50 H (7.35-7.45) ABG pCO2 (35-45) mmHg ABG pO2 148 H (83-108) mmHg ABG HCO3 27 H (21-25) mmol/L ABG Total CO2 28 H (19-24) mmol/L ABG O2 Saturation 99.2 H (94-97) % Chloride (98-107) mmol/L BUN (9-20) mg/dL Glucose (74-99) mg/dL POC Glucose (mg/dL) 113 H (75-99) mg/dL Calcium (8.4-10.2) mg/dL Microbiology - Last 24 Hours (Table) 03/27/19 01:10 Blood Culture - Preliminary Blood No Growth after 96 hours Assessment and Plan Plan: 1 shock with profound hypotension currently on pressors. The patient had a acute non-ST segment elevation myocardial infarction. The patient could be also potentially septic and this shock could be a combination of cardiac and septic in nature. The patient is still requiring low-dose norepinephrine infusion for blood pressure control. He will be started gradually on diuretics as his shock is improved significantly. All of the cultures of been negative and the patient has been covered with broad-spectrum antibiotics. Echocardiogram showed underlying CAD a and cardiomyopathy with an ejection fraction of 35%.. 2 acute hypoxic respiratory failure , the patient was weaned off the mechanical ventilator. The patient was extubated to BiPAP and currently the patient on a BiPAP at a pressure of 10/5 cm of water with an FiO2 of 40%. 3 acute non-ST segment elevation myocardial infarction, recovered 4 CHF ischemic in nature with ejection fraction of 35% and segmental wall motion abnormalities. 5 paroxysmal atrial fibrillation, current rhythm is sinus. The patient is controlled rate and he is on long-term antibiotic ventilation with Eliquis. 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 7 hematologic abnormalities with an abnormal hematologic profile consistent with CLL. The patient has lymphocytosis, thrombocytopenia and anemia. The patient's counts have been stable. The white cell count remains elevated essentially lymphocytosis in addition to a stable hemoglobin is stable platelet count. 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 Monitor fluid balance. Support blood pressure with norepinephrine infusion to maintain a mean arterial pressure above 65. The patient was taken off sedation. The patient was extubated. The patient is currently on a BiPAP at a pressure of 10/5 cm of water with an FiO2 of 40%. Continue same antibiotic coverage and discussed with ID the possibility of simplifying the antibiotic noted all of the cultures of been negative. Family is at the bedside. We'll continue to follow. Prognosis long-term is poor baseline above-mentioned comorbidities. Defibrillation was on a more than 30 minutes. Time with Patient: Greater than 30
[2019-03-31] MEDS: POTASSIUM CHLORIDE 20 MEQ in WATER FOR INJECTION 1 100ML.BAG IVPB SCH ×2 (15:18→17:56)
--- NOTE | 2019-03-31 15:53 | P.PN ---
Subjective Progress Note Date: 03/31/19 Patient is extubated, on BiPAP. They're generalized weakness. However he is alert and responding appropriately with signs. No fever/chills/obvious bleeding. He denied any abdominal pain at this time Objective - Vital Signs Vital signs: Vital Signs Temp 98.3 F 03/31/19 12:00 Pulse 103 H 03/31/19 14:00 Resp 24 03/31/19 14:00 BP 96/69 03/31/19 11:00 Pulse Ox 99 03/31/19 14:00 Intake & Output 03/30/19 03/31/19 03/31/19 18:59 06:59 18:59 Intake Total 1713.435 677.524 331.079 Output Total 2035 2605 1525 Balance -321.565 -1927.476 -1193.921 Weight 90.1 kg Intake: IV 232 117 128 Cefepime 2 gm In Sodium 100 Chloride 0.9% 100 ml @ 200 mls/hr IVPB Q12H [facility] Rx#:[id number] Pressure bags 0.9 72 42 48 Sodium Chloride 0.9% 1, 60 75 80 000 ml @ 5 mls/hr IV . Q24H [facility] Rx#:[id number] Intake, IV Titration 1011.435 80.524 203.079 Amount Cefepime 2 gm In Sodium 100 100 Chloride 0.9% 100 ml @ 200 mls/hr IVPB Q12H [facility] Rx#:[id number] Magnesium Sulfate-D5w Pmx 200 1 gm In Dextrose/Water 1 100ml.bag @ 100 mls/hr IVPB Q1H [facility] Rx#: [id number] Norepinephrine 32 mg In 1.17 45.33 Sodium Chloride 0.9% 218 ml @ 0.05 MCG/KG/MIN 2. 128 mls/hr IV .Q24H [facility] Rx#:[id number] Norepinephrine 4 mg In 140.789 Sodium Chloride 0.9% 250 ml @ 0.05 MCG/KG/MIN 15. 122 mls/hr IV .[id number] [facility] Rx#:[id number] Potassium Chloride 10 meq 100 In Water For Injection 1 100ml.bag @ 100 mls/hr IVPB Q1H [facility] Rx#: [id number] Potassium Chloride 20 meq 100 In Water For Injection 1 100ml.bag @ 50 mls/hr IVPB Q2H [facility] Rx#: [id number] Propofol 1,000 mg In 119.476 80.524 57.749 Empty Bag 1 bag @ Titrate IV .Q0M [facility] Rx#: [id number] Vancomycin 1,500 mg In 250 Sodium Chloride 0.9% 250 ml @ 125 mls/hr IVPB Q16H [facility] Rx#:[id number] Tube Feeding 470 480 Output: Urine 2035 2605 1525 Other: Voiding Method Indwelling Catheter Indwelling Catheter Indwelling Catheter # Voids 2 2 ABP, PAP, CO, CI - Last Documented Arterial Blood Pressure 107/51 - Constitutional General appearance: Present: no acute distress - EENT Eyes: Present: EOMI ENT: Present: hearing grossly normal, normal oropharynx - Respiratory Respiratory: right: rales, bilateral: diminished - Cardiovascular Rhythm: regular Heart sounds: normal: S1, S2 - Gastrointestinal General gastrointestinal: Present: soft - Integumentary Integumentary: Present: normal - Neurologic Neurologic: Present: CNII-XII intact - Musculoskeletal Musculoskeletal: Present: generalized weakness, strength equal bilaterally - Psychiatric Psychiatric: Present: appropriate affect - Labs CBC & Chem 7: 03/31/19 05:00 03/31/19 13:55 Labs: Abnormal Lab Results - Last 24 Hours (Table) 03/30/19 03/30/19 03/31/19 Range/Units 17:35 23:35 05:00 WBC (3.8-10.6) k/uL RBC (4.30-5.90) m/uL Hgb (13.0-17.5) gm/dL Hct (39.0-53.0) % RDW (11.5-15.5) % Lymphocytes # (Manual) (1.0-4.8) k/uL Eosinophils # (Manual) (0-0.7) k/uL ABG pH (7.35-7.45) ABG pCO2 (35-45) mmHg ABG pO2 (83-108) mmHg ABG HCO3 (21-25) mmol/L ABG Total CO2 (19-24) mmol/L ABG O2 Saturation (94-97) % Chloride 108 H (98-107) mmol/L BUN 39 H (9-20) mg/dL Glucose 134 H (74-99) mg/dL POC Glucose (mg/dL) 106 H 121 H (75-99) mg/dL Calcium 8.1 L (8.4-10.2) mg/dL 03/31/19 03/31/19 03/31/19 Range/Units 05:00 05:00 06:49 WBC 85.6 H* (3.8-10.6) k/uL RBC 3.07 L (4.30-5.90) m/uL Hgb 8.9 L (13.0-17.5) gm/dL Hct 27.9 L (39.0-53.0) % RDW 19.5 H (11.5-15.5) % Lymphocytes # (Manual) 77.04 H (1.0-4.8) k/uL Eosinophils # (Manual) 0.86 H (0-0.7) k/uL ABG pH 7.50 H (7.35-7.45) ABG pCO2 34 L (35-45) mmHg ABG pO2 135 H (83-108) mmHg ABG HCO3 27 H (21-25) mmol/L ABG Total CO2 28 H (19-24) mmol/L ABG O2 Saturation 99.2 H (94-97) % Chloride (98-107) mmol/L BUN (9-20) mg/dL Glucose (74-99) mg/dL POC Glucose (mg/dL) 136 H (75-99) mg/dL Calcium (8.4-10.2) mg/dL 03/31/19 03/31/19 Range/Units 09:26 12:38 WBC (3.8-10.6) k/uL RBC (4.30-5.90) m/uL Hgb (13.0-17.5) gm/dL Hct (39.0-53.0) % RDW (11.5-15.5) % Lymphocytes # (Manual) (1.0-4.8) k/uL Eosinophils # (Manual) (0-0.7) k/uL ABG pH 7.50 H (7.35-7.45) ABG pCO2 (35-45) mmHg ABG pO2 148 H (83-108) mmHg ABG HCO3 27 H (21-25) mmol/L ABG Total CO2 28 H (19-24) mmol/L ABG O2 Saturation 99.2 H (94-97) % Chloride (98-107) mmol/L BUN (9-20) mg/dL Glucose (74-99) mg/dL POC Glucose (mg/dL) 113 H (75-99) mg/dL Calcium (8.4-10.2) mg/dL Microbiology - Last 24 Hours (Table) 03/27/19 01:10 Blood Culture - Preliminary Blood No Growth after 96 hours Assessment and Plan (1) Acute respiratory failure with hypoxia Narrative/Plan: The patient has been extubated, and is currently on BiPAP. Case discussed with ID, and pulmonary medicine. Continue ongoing treatment with respiratory support, antibiotics, and breathing treatments. Current Visit: Yes Status: Acute Priority: High Code(s): J96.01 - ACUTE RESPIRATORY FAILURE WITH HYPOXIA SNOMED Code(s): 95468940 (2) Acute non-ST elevation myocardial infarction (NSTEMI) Narrative/Plan: The patient is currently more stable from a cardiac standpoint. If he recovers sufficiently from his respiratory failure, will discuss with cardiology regarding workup for his recent ischemic event, as he does have options for treating his malignancy. Current Visit: Yes Status: Acute Priority: High Code(s): I21.4 - NON-ST ELEVATION (NSTEMI) MYOCARDIAL INFARCTION SNOMED Code(s): 093930427 (3) Anemia Current Visit: No Status: Acute Code(s): D64.9 - ANEMIA, UNSPECIFIED SNOMED Code(s): 668738937 (4) CAP (community acquired pneumonia) Current Visit: No Status: Acute Code(s): J18.9 - PNEUMONIA, UNSPECIFIED ORGANISM SNOMED Code(s): 131324576 (5) Chronic lymphocytic leukemia Narrative/Plan: Her WBC is elevated in the same range, between 70,000-80,000. Hemoglobin has been stable in a safe range. As the patient is not having any abdominal pain at this time, there is no indication to use steroids, whose primary purpose would have been acute symptom control. If it is established and the patient has progressive disease, he does have other options for treatment, assuming that he can be stabilized from a cardiac standpoint Current Visit: Yes Status: Chronic Priority: Medium Code(s): C91.10 - CHRONIC LYMPHOCYTIC LEUK OF B-CELL TYPE NOT ACHIEVE REMIS SNOMED Code(s): 53070037 (6) Abdominal pain Current Visit: Yes Status: Acute Code(s): R10.9 - UNSPECIFIED ABDOMINAL PAIN SNOMED Code(s): 72528692
[2019-03-31] MEDS: FUROSEMIDE 100 MG in SODIUM CHLORIDE 0.9% 90 ML IV SCH (17:56)
[2019-03-31 18:25] LABS: Glucose,Whole Blood 124 mg/dL (75-99)
[2019-03-31] MEDS: ATORVASTATIN 20 MG TAB PO SCH (20:26)
[2019-03-31] MEDS ORDERED: VANCOMYCIN TROUGH DUE 1 EACH MISC MISCELLANE ONE (21:00)
[2019-03-31] MEDS: POLYETHYLENE GLYCOL 3350 17 GM POWD.PACK PO SCH (21:05)
--- NOTE | 2019-03-31 21:45 | P.PN ---
Subjective Progress Note Date: 03/31/19 Principal diagnosis: Sepsis and possible aspiration pneumonia and diverticulitis Patient initially admitted hospital with abdominal pain in this patient did have significant increase in size of abdominal lymphadenopathy and possible component of diverticulitis patient was transferred to the ICU because of hypotension , morning of 03/26/2019 the patient did have significant change in his clinical condition and the patient ripped off his IV and leads subsequently did have sign ificant drop in the blood pressure and respiratory distress patient ended up getting intubated on 03/26/2019. On today's evaluation that is 03/31/2019, the patient remains to be afebrile , hemodynamically stable not on pressor support, the patient has been extubated and is currently on a BiPAP, the patient is awake and follows some simple commands by shaking his hands no nausea vomiting or diarrhea has been reported by the nursing staff, Objective - Vital Signs Vital signs: Vital Signs Temp 98 F 03/31/19 08:00 Pulse 96 03/31/19 11:49 Resp 30 H 03/31/19 11:00 BP 96/69 03/31/19 11:00 Pulse Ox 97 03/31/19 11:00 Intake & Output 03/30/19 03/31/19 03/31/19 18:59 06:59 18:59 Intake Total 1713.435 677.524 167.079 Output Total 2035 2605 875 Balance -321.565 -1927.476 -707.921 Weight 90.1 kg Intake: IV 232 117 64 Cefepime 2 gm In Sodium 100 Chloride 0.9% 100 ml @ 200 mls/hr IVPB Q12H [facility] Rx#:[id number] Pressure bags 0.9 72 42 24 Sodium Chloride 0.9% 1, 60 75 40 000 ml @ 5 mls/hr IV . Q24H [facility] Rx#:[id number] Intake, IV Titration 1011.435 80.524 103.079 Amount Cefepime 2 gm In Sodium 100 Chloride 0.9% 100 ml @ 200 mls/hr IVPB Q12H [facility] Rx#:[id number] Magnesium Sulfate-D5w Pmx 200 1 gm In Dextrose/Water 1 100ml.bag @ 100 mls/hr IVPB Q1H [facility] Rx#: [id number] Norepinephrine 32 mg In 1.17 45.33 Sodium Chloride 0.9% 218 ml @ 0.05 MCG/KG/MIN 2. 128 mls/hr IV .Q24H [facility] Rx#:[id number] Norepinephrine 4 mg In 140.789 Sodium Chloride 0.9% 250 ml @ 0.05 MCG/KG/MIN 15. 122 mls/hr IV .[id number] [facility] Rx#:[id number] Potassium Chloride 10 meq 100 In Water For Injection 1 100ml.bag @ 100 mls/hr IVPB Q1H [facility] Rx#: [id number] Potassium Chloride 20 meq 100 In Water For Injection 1 100ml.bag @ 50 mls/hr IVPB Q2H [facility] Rx#: [id number] Propofol 1,000 mg In 119.476 80.524 57.749 Empty Bag 1 bag @ Titrate IV .Q0M [facility] Rx#: [id number] Vancomycin 1,500 mg In 250 Sodium Chloride 0.9% 250 ml @ 125 mls/hr IVPB Q16H [facility] Rx#:[id number] Tube Feeding 470 480 Output: Urine 2035 2605 875 Other: Voiding Method Indwelling Catheter Indwelling Catheter Indwelling Catheter # Voids 2 2 ABP, PAP, CO, CI - Last Documented Arterial Blood Pressure 101/52 - Exam GENERAL DESCRIPTION: The patient awake on BiPAP HEENT: [Oral mucosa could not be examined because of BiPAP] EYES : [pallor or scleral icterus] RESPIRATORY SYSTEM: [Unlabored breathing decreased breath sound at the base] CARDIA VASCULAR SYSTEM: [S1-S2 regular rate and rhythm no murmur] GI: [Abdominal soft there's no tenderness no organomegaly] EXTREMITIES: [No edema feet] - Labs CBC & Chem 7: 03/31/19 05:00 03/31/19 13:55 Labs: Abnormal Lab Results - Last 24 Hours (Table) 03/30/19 03/30/19 03/30/19 Range/Units 12:26 17:35 23:35 WBC (3.8-10.6) k/uL RBC (4.30-5.90) m/uL Hgb (13.0-17.5) gm/dL Hct (39.0-53.0) % RDW (11.5-15.5) % Lymphocytes # (Manual) (1.0-4.8) k/uL Eosinophils # (Manual) (0-0.7) k/uL ABG pH (7.35-7.45) ABG pCO2 (35-45) mmHg ABG pO2 (83-108) mmHg ABG HCO3 (21-25) mmol/L ABG Total CO2 (19-24) mmol/L ABG O2 Saturation (94-97) % Chloride (98-107) mmol/L BUN (9-20) mg/dL Glucose (74-99) mg/dL POC Glucose (mg/dL) 116 H 106 H 121 H (75-99) mg/dL Calcium (8.4-10.2) mg/dL 03/31/19 03/31/19 03/31/19 Range/Units 05:00 05:00 05:00 WBC 85.6 H* (3.8-10.6) k/uL RBC 3.07 L (4.30-5.90) m/uL Hgb 8.9 L (13.0-17.5) gm/dL Hct 27.9 L (39.0-53.0) % RDW 19.5 H (11.5-15.5) % Lymphocytes # (Manual) 77.04 H (1.0-4.8) k/uL Eosinophils # (Manual) 0.86 H (0-0.7) k/uL ABG pH 7.50 H (7.35-7.45) ABG pCO2 34 L (35-45) mmHg ABG pO2 135 H (83-108) mmHg ABG HCO3 27 H (21-25) mmol/L ABG Total CO2 28 H (19-24) mmol/L ABG O2 Saturation 99.2 H (94-97) % Chloride 108 H (98-107) mmol/L BUN 39 H (9-20) mg/dL Glucose 134 H (74-99) mg/dL POC Glucose (mg/dL) (75-99) mg/dL Calcium 8.1 L (8.4-10.2) mg/dL 03/31/19 03/31/19 Range/Units 06:49 09:26 WBC (3.8-10.6) k/uL RBC (4.30-5.90) m/uL Hgb (13.0-17.5) gm/dL Hct (39.0-53.0) % RDW (11.5-15.5) % Lymphocytes # (Manual) (1.0-4.8) k/uL Eosinophils # (Manual) (0-0.7) k/uL ABG pH 7.50 H (7.35-7.45) ABG pCO2 (35-45) mmHg ABG pO2 148 H (83-108) mmHg ABG HCO3 27 H (21-25) mmol/L ABG Total CO2 28 H (19-24) mmol/L ABG O2 Saturation 99.2 H (94-97) % Chloride (98-107) mmol/L BUN (9-20) mg/dL Glucose (74-99) mg/dL POC Glucose (mg/dL) 136 H (75-99) mg/dL Calcium (8.4-10.2) mg/dL Microbiology - Last 24 Hours (Table) 03/27/19 01:10 Blood Culture - Preliminary Blood No Growth after 96 hours Assessment and Plan Assessment: 1-patient was initially admitted hospital with abdominal pain from significant decrease in size of his lymphadenopathy with concern for possible compression of the intestine with component of ischemic colitis versus diverticulitis 2-patient with new fever after the patient did have significant change in his clinical condition with acute vent dependent respiratory failure with a possible component of aspiration pneumonitis--- culture has been negative and the patient had been successfully extubated Plan: 1-the patient will be restarted on cefepime 2 g every 12 hours, however discontinue the vancomycin as no MRSA has been grown And monitor his clinical course closely Family the bedside questions were answered Time with Patient: Less than 30
[2019-04-01 00:12] LABS: Glucose,Whole Blood 106 mg/dL (75-99)
[2019-04-01] MEDS: INSULIN ASPART (NovoLOG) 100 UNIT/ML VIAL SQ SCH ×5 (00:16→21:03)
[2019-04-01 04:43] LABS: Calcium 8.1 mg/dL (8.4-10.2); Magnesium 1.9 mg/dL (1.6-2.3); Phosphorus 3.3 mg/dL (2.5-4.5); Potassium 3.4 mmol/L (3.5-5.1)
[2019-04-01] MEDS: POTASSIUM CHLORIDE 20 MEQ in WATER FOR INJECTION 1 100ML.BAG IVPB SCH ×3 (05:06→07:13)
[2019-04-01 06:15] LABS: Anisocytosis Slight; HCT 28.2 % (39.0-53.0); HGB 9.1 gm/dL (13.0-17.5); Hypochromasia Slight; MCHC 32.2 g/dL (31.0-37.0); MCV 89.9 fL (80.0-100.0); Mean Platelet Volume 7.8; Platelet Count 248 k/uL (150-450); Poikilocytosis Slight; RBC 3.13 m/uL (4.30-5.90); RDW 18.4 % (11.5-15.5)
[2019-04-01 06:21] LABS: Glucose,Whole Blood 113 mg/dL (75-99)
[2019-04-01 06:36] LABS: Lymphocytes # (M) 63.08 k/uL (1.0-4.8); Monocytes # (M) 0.76 k/uL (0-1.0); Neutrophils # (M) 12.16 k/uL (1.3-7.7); Neutrophils % (M) 16 %; Nucleated Red Blood Cells 0 /100 WBC (0-0); Polychromasia Present; Total Cells Counted 100
--- NOTE | 2019-04-01 07:25 | P.PN ---
Subjective Progress Note Date: 04/01/19 Principal diagnosis: Acute non-ST elevation CT This is a pleasant 78-year-old gentleman with a past medical history significant for paroxysmal atrial fibrillation as well as history of CLL who presented to the hospital with progressive abdominal discomfort and was found to have large mass in the abdomen. Subsequently the patient developed acute respiratory distress requiring intubation and mechanical ventilation. He was ruled for acute non-ST patient myocardial infarction which was treated medically. The echocardiogram revealed and impaired LV function with wall motion abnormalities. On follow-up with the patient today, April [id number], the patient was extubated. Chemically he seems to be doing good. Hemodynamically he continues to be hypotensive and requiring small dose of norepinephrine. He did go into atrial fibrillation with RVR yesterday after the metoprolol was held but currently he is in normal sinus mechanism. The metoprolol was restarted. He is on oral anticoagulation as well. Beside that he continues to be on Lasix drip which I suggested to be discontinuance start the patient on Lasix IV hopefully to get his blood pressure a bit higher and get him off the norepinephrine. The creatinine continues to be stable. The hemoglobin this morning is 9.1. Objective - Vital Signs Vital signs: Vital Signs Temp 98.0 F 04/01/19 04:01 Pulse 77 04/01/19 07:00 Resp 21 04/01/19 07:00 BP 109/64 04/01/19 02:30 Pulse Ox 96 04/01/19 07:00 Intake & Output 03/31/19 04/01/19 04/01/19 18:59 06:59 18:59 Intake Total 629.079 751.873 11 Output Total 2005 2652 250 Balance -1545.921 -1900.127 -239 Weight 90.1 kg 81.9 kg Intake: IV 326 424 11 Cefepime 2 gm In Sodium 100 Chloride 0.9% 100 ml @ 200 mls/hr IVPB Q12H [facility] Rx#:[id number] Potassium Chloride 20 meq 150 150 In Water For Injection 1 100ml.bag @ 50 mls/hr IVPB Q2H [facility] Rx#: [id number] Pressure bags 0.9 66 69 6 Sodium Chloride 0.9% 1, 110 105 5 000 ml @ 5 mls/hr IV . Q24H [facility] Rx#:[id number] Intake, IV Titration 303.079 27.873 Amount Cefepime 2 gm In Sodium 100 Chloride 0.9% 100 ml @ 200 mls/hr IVPB Q12H [facility] Rx#:[id number] Furosemide 100 mg In 100 Sodium Chloride 0.9% 90 ml @ 5 MG/HR 5 mls/hr IV .Q20H [facility] Rx#:[id number] Norepinephrine 32 mg In 45.33 27.873 Sodium Chloride 0.9% 218 ml @ 0.05 MCG/KG/MIN 2. 128 mls/hr IV .Q24H [facility] Rx#:[id number] Propofol 1,000 mg In 57.749 Empty Bag 1 bag @ Titrate IV .Q0M [facility] Rx#: [id number] Oral 300 Output: Urine 2175 2650 250 Stool 2 Other: Voiding Method Indwelling Catheter Indwelling Catheter # Bowel Movements 1 ABP, PAP, CO, CI - Last Documented Arterial Blood Pressure 100/45 - Constitutional General appearance: Present: no acute distress - Respiratory Respiratory: bilateral: diminished - Cardiovascular Rhythm: regular Heart sounds: normal: S1, S2 - Labs CBC & Chem 7: 04/01/19 04:19 04/01/19 04:19 Labs: Abnormal Lab Results - Last 24 Hours (Table) 03/31/19 03/31/19 03/31/19 Range/Units 09:26 12:38 18:14 WBC (3.8-10.6) k/uL RBC (4.30-5.90) m/uL Hgb (13.0-17.5) gm/dL Hct (39.0-53.0) % RDW (11.5-15.5) % Neutrophils # (Manual) (1.3-7.7) k/uL Lymphocytes # (Manual) (1.0-4.8) k/uL ABG pH 7.50 H (7.35-7.45) ABG pO2 148 H (83-108) mmHg ABG HCO3 27 H (21-25) mmol/L ABG Total CO2 28 H (19-24) mmol/L ABG O2 Saturation 99.2 H (94-97) % Potassium (3.5-5.1) mmol/L Carbon Dioxide (22-30) mmol/L BUN (9-20) mg/dL Glucose (74-99) mg/dL POC Glucose (mg/dL) 113 H 124 H (75-99) mg/dL Calcium (8.4-10.2) mg/dL 04/01/19 04/01/19 04/01/19 Range/Units 00:00 04:19 04:19 WBC 76.0 H* (3.8-10.6) k/uL RBC 3.13 L (4.30-5.90) m/uL Hgb 9.1 L (13.0-17.5) gm/dL Hct 28.2 L (39.0-53.0) % RDW 18.4 H (11.5-15.5) % Neutrophils # (Manual) 12.16 H (1.3-7.7) k/uL Lymphocytes # (Manual) 63.08 H (1.0-4.8) k/uL ABG pH (7.35-7.45) ABG pO2 (83-108) mmHg ABG HCO3 (21-25) mmol/L ABG Total CO2 (19-24) mmol/L ABG O2 Saturation (94-97) % Potassium 3.4 L (3.5-5.1) mmol/L Carbon Dioxide 31 H (22-30) mmol/L BUN 39 H (9-20) mg/dL Glucose 109 H (74-99) mg/dL POC Glucose (mg/dL) 106 H (75-99) mg/dL Calcium 8.1 L (8.4-10.2) mg/dL 04/01/19 Range/Units 06:10 WBC (3.8-10.6) k/uL RBC (4.30-5.90) m/uL Hgb (13.0-17.5) gm/dL Hct (39.0-53.0) % RDW (11.5-15.5) % Neutrophils # (Manual) (1.3-7.7) k/uL Lymphocytes # (Manual) (1.0-4.8) k/uL ABG pH (7.35-7.45) ABG pO2 (83-108) mmHg ABG HCO3 (21-25) mmol/L ABG Total CO2 (19-24) mmol/L ABG O2 Saturation (94-97) % Potassium (3.5-5.1) mmol/L Carbon Dioxide (22-30) mmol/L BUN (9-20) mg/dL Glucose (74-99) mg/dL POC Glucose (mg/dL) 113 H (75-99) mg/dL Calcium (8.4-10.2) mg/dL Microbiology - Last 24 Hours (Table) 03/27/19 01:10 Blood Culture - Preliminary Blood No Growth after 120 hours Assessment and Plan Assessment: Assessment #1 acute respiratory failure secondary to pneumonia #2 acute non-ST elevation myocardial infarction #3 ischemic cardiomyopathy #4 paroxysmal atrial fibrillation #5 chronic lymphocytic leukemia #6 severe anemia Plan #1 continue the current medical regimen #2 DC the Lasix drip and start the patient on Lasix IV #3 continue monitor the hemoglobin as well as kidney function #4 repeat the echocardiogram in the next few days #5 follow-up with the patient
[2019-04-01] MEDS: NOREPINEPHRINE 32 MG in SODIUM CHLORIDE 0.9% 218 ML IV SCH ×2 (07:36→17:36)
[2019-04-01] MEDS: AMIODARONE 200 MG TAB PO SCH ×2 (09:41→21:10)
[2019-04-01] MEDS: METOPROLOL TARTRATE 25 MG TAB PO SCH ×2 (09:42→21:11)
[2019-04-01] MEDS: ASPIRIN 81 MG PO SCH (09:42)
[2019-04-01] MEDS: APIXABAN 5 MG TAB PO SCH ×2 (09:42→21:11)
[2019-04-01] MEDS: CEFEPIME 2 GM in SODIUM CHLORIDE 0.9% 100 ML IVPB SCH ×2 (09:42→21:09)
[2019-04-01] MEDS: FUROSEMIDE 10 MG/ML 4 ML VIAL IV SCH (09:43)
[2019-04-01] MEDS: POTASSIUM CHLORIDE ER 20 MEQ TAB.ER PO SCH ×2 (09:43→12:31)
[2019-04-01] MEDS: MAGNESIUM SULFATE-D5W PMX 1 GM in DEXTROSE/WATER 1 100ML.BAG IVPB SCH ×2 (09:43→12:31)
[2019-04-01] MEDS: IPRATROPIUM-ALBUTEROL 3 ML NEB INHALATION SCH ×4 (10:00→20:02)
--- NOTE | 2019-04-01 10:59 | P.PN ---
Subjective Progress Note Date: 04/01/19 Patient seen and examined in follow-up, patient doing well since extubation yesterday has been weaned down from CPAP down to 2 L via nasal cannula, patient is awake alert and following commands. Patient has had several. Apparently was in A. fib overnight and converted back to sinus rhythm, Lasix drip has been discontinued. Having some hypo-electrolytes magnesium and potassium today, currently on IV pressors with levophed @ 0.04mcg/kg/min. hemoglobin maintaining stable at 9.1. No acute events overnight. Objective - Vital Signs Vital signs: Vital Signs Temp 98.0 F 04/01/19 04:01 Pulse 77 04/01/19 07:00 Resp 21 04/01/19 07:00 BP 109/64 04/01/19 02:30 Pulse Ox 96 04/01/19 07:00 Intake & Output 03/31/19 04/01/19 04/01/19 18:59 06:59 18:59 Intake Total 629.079 751.873 85.333 Output Total 2175 2652 475 Balance -1545.921 -1900.127 -389.667 Weight 90.1 kg 81.9 kg Intake: IV 326 424 17 Cefepime 2 gm In Sodium 100 Chloride 0.9% 100 ml @ 200 mls/hr IVPB Q12H [facility] Rx#:[id number] Potassium Chloride 20 meq 150 150 In Water For Injection 1 100ml.bag @ 50 mls/hr IVPB Q2H [facility] Rx#: [id number] Pressure bags 0.9 66 69 12 Sodium Chloride 0.9% 1, 110 105 5 000 ml @ 5 mls/hr IV . Q24H [facility] Rx#:[id number] Intake, IV Titration 303.079 27.873 68.333 Amount Cefepime 2 gm In Sodium 100 Chloride 0.9% 100 ml @ 200 mls/hr IVPB Q12H [facility] Rx#:[id number] Furosemide 100 mg In 100 68.333 Sodium Chloride 0.9% 90 ml @ 5 MG/HR 5 mls/hr IV .Q20H [facility] Rx#:[id number] Norepinephrine 32 mg In 45.33 27.873 Sodium Chloride 0.9% 218 ml @ 0.05 MCG/KG/MIN 2. 128 mls/hr IV .Q24H [facility] Rx#:[id number] Propofol 1,000 mg In 57.749 Empty Bag 1 bag @ Titrate IV .Q0M [facility] Rx#: [id number] Oral 300 Output: Urine 2175 2650 475 Stool 2 Other: Voiding Method Indwelling Catheter Indwelling Catheter # Bowel Movements 1 ABP, PAP, CO, CI - Last Documented Arterial Blood Pressure 100/45 - Exam Constitutional: No acute distress, conversant, pleasant Eyes: Anicteric sclerae, moist conjunctiva, no lid-lag, PERRLA ENMT: NC/AT,Oropharynx clear, no erythema, exudates Neck:Supple, FROM, no masses, or JVD, No carotid bruits; No thyromegaly, left IJ in place Lungs: Diminished in the bases bilaterally with bibasilar crackles, no resp iratory distress on 2 L nasal cannula Cardiovascular: Heart regular in rate and rhythm, No murmurs, gallops, or rubs no peripheral edema Abdominal: Soft Nontender, nom distended, no guarding, no rebound or rigidity, Normoactive bowel sounds No hepatomegaly, No splenomegaly, No palpable mass No abdominal wall hernia noted Skin: Normal temperature, tone, texture, turgor, No induration No subcutaneous nodules, No rash, lesions, No ulcers Extremities:No digital cyanosis No clubbing, Pedal pulses intact and symmetrical Radial pulses intact and symmetrical Normal gait and station, No calf tenderness Neuro: Awake and following simple commands squeezing fingers pupils are reactive to light, no seizure activity - Labs CBC & Chem 7: 04/01/19 04:19 04/01/19 04:19 Labs: Abnormal Lab Results - Last 24 Hours (Table) 03/31/19 03/31/19 04/01/19 Range/Units 12:38 18:14 00:00 WBC (3.8-10.6) k/uL RBC (4.30-5.90) m/uL Hgb (13.0-17.5) gm/dL Hct (39.0-53.0) % RDW (11.5-15.5) % Neutrophils # (Manual) (1.3-7.7) k/uL Lymphocytes # (Manual) (1.0-4.8) k/uL Potassium (3.5-5.1) mmol/L Carbon Dioxide (22-30) mmol/L BUN (9-20) mg/dL Glucose (74-99) mg/dL POC Glucose (mg/dL) 113 H 124 H 106 H (75-99) mg/dL Calcium (8.4-10.2) mg/dL 04/01/19 04/01/19 04/01/19 Range/Units 04:19 04:19 06:10 WBC 76.0 H* (3.8-10.6) k/uL RBC 3.13 L (4.30-5.90) m/uL Hgb 9.1 L (13.0-17.5) gm/dL Hct 28.2 L (39.0-53.0) % RDW 18.4 H (11.5-15.5) % Neutrophils # (Manual) 12.16 H (1.3-7.7) k/uL Lymphocytes # (Manual) 63.08 H (1.0-4.8) k/uL Potassium 3.4 L (3.5-5.1) mmol/L Carbon Dioxide 31 H (22-30) mmol/L BUN 39 H (9-20) mg/dL Glucose 109 H (74-99) mg/dL POC Glucose (mg/dL) 113 H (75-99) mg/dL Calcium 8.1 L (8.4-10.2) mg/dL Microbiology - Last 24 Hours (Table) 03/27/19 01:10 Blood Culture - Preliminary Blood No Growth after 120 hours Assessment and Plan (1) Shock Narrative/Plan: * Multifactorial due to cardiogenic secondary to non-STEMI with ICM superimposed on septic shock due PNA and intrabdominal pathology * Patient continued on IV pressors currently down to .04 g/kg/min of levophed , CVP 8-9 * Continued on broad-spectrum antibiotics with cefepime with infectious disease following Current Visit: Yes Status: Acute Code(s): R57.9 - SHOCK, UNSPECIFIED SNOMED Code(s): 90139186 (2) Acute respiratory failure with hypoxia Narrative/Plan: * Secondary to septic shock with superimposed by basilar pneumonia with pleural effusions small to moderate in size * Patient recently extubated 03/31 continues to wean oxygen currently down to 2 L via nasal cannula * chest x-ray yesterday showing stable basilar atelectasis and infiltrates with bilateral pleural effusions (consider chest ultrasound to evaluate for thoracentesis), repeat chest x-ray pending * Continue scheduled and when necessary DuoNeb bronchodilator breathing treatments Current Visit: Yes Status: Acute Priority: High Code(s): J96.01 - ACUTE RESPIRATORY FAILURE WITH HYPOXIA SNOMED Code(s): 26966937 (3) Non-STEMI (non-ST elevated myocardial infarction) Narrative/Plan: * Initial troponin less than 0.012. EKG ordered yesterday for concerns of tachycardia, with ST depression, troponin reordered to rule out ACS. * Repeat troponin 3.650, 8.210, 20.4, 31. Possibly related to true cardiac event from severe anemia and hypotension. * Echocardiogram shows EF 35-40% with hypokinetic wall motion. * Continue Telemetry monitoring. Continue aspirin. * As per Dr. Rajput, not candidate for aggressive cardiac workup. Follow cardiology recommendations. No heparin due to severe anemia. Current Visit: Yes Status: Acute Code(s): I21.4 - NON-ST ELEVATION (NSTEMI) MYOCARDIAL INFARCTION SNOMED Code(s): 01324933 (4) Ischemic cardiomyopathy Narrative/Plan: * Secondary to non STEMI * Echocardiogram revealed impaired LV function EF of 35-40% with wall motion abnormalities * Continue metoprolol continue aspirin monitor urine output and Lsix ggt discontinued * Cardiology following Current Visit: Yes Status: Acute Code(s): I25.5 - ISCHEMIC CARDIOMYOPATHY SNOMED Code(s): 797991081 (5) Paroxysmal atrial fibrillation Narrative/Plan: * Currently rate controlled And currently in sinus rhythm * Continue metoprolol and Amiodarone PO * Continue anticoagulation with eliquis Current Visit: Yes Status: Acute Code(s): I48.0 - PAROXYSMAL ATRIAL FIBRILLATION SNOMED Code(s): 823178954 (6) Leukocytosis Narrative/Plan: * CLL superimposed on sepsis concern for progression versus reactive inflammation * Appreciate hematology recommendations Current Visit: Yes Status: Acute Priority: Medium Code(s): D72.829 - ELEVATED WHITE BLOOD CELL COUNT, UNSPECIFIED SNOMED Code(s): 174539983 (7) CLL (chronic lymphocytic leukemia) Narrative/Plan: * Profound lymphocytosis thrombocytopenia and anemia consistent with underlying CLL * Noted significant enlargement of intra-abdominal lymphadenopathy causing mass effect and abdominal structures including the bowel and kidneys Current Visit: No Status: Chronic Priority: High Code(s): C91.10 - CHRONIC LYMPHOCYTIC LEUK OF B-CELL TYPE NOT ACHIEVE REMIS SNOMED Code(s): 97371093 (8) Electrolyte depletion Narrative/Plan: * Continue potassium and mag replacement protocols Current Visit: Yes Status: Acute Code(s): E87.8 - OTH DISORDERS OF ELECTROLYTE AND FLUID BALANCE, NEC SNOMED Code(s): 42346617 Plan: Disposition * Patient doing well continue current course * Appreciate consultants recommendations, continue to monitor daily and update family with plan of care
[2019-04-01 12:13] LABS: Glucose,Whole Blood 118 mg/dL (75-99)
--- NOTE | 2019-04-01 12:20 | P.PN ---
Subjective Progress Note Date: 04/01/19 On today's evaluation of 03/27/2019 I'm seeing this patient for a follow-up. The patient is currently intubated on a mechanical ventilator. The patient is known history of CLL receiving FOLFOX treatment on outpatient basis.. The patient came in for increased abdominal pain and subsequently the patient went into respiratory failure and hemodynamic collapse. The patient suffered an acute non-ST segment elevation myocardial infarction and troponin peaked at 31. Cardiology is on the case This morning, the patient was sedated with propofol at 50 g per KG per minute. The patient is intubated on a mechanical ventilator. Earlier this morning the patient was on a volume cycle mode of ventilation with a tidal volume of 600 with a rate of 20, FiO2 of 40% and a PEEP of 5. The patient is intubated with a #8 ET tube. The blood gases from this morning showed a pH of 7.39 with a pCO2 of 28 and pO2 of 147. The patient was still having higher tidal volumes and is minute ventilation was quite elevated. Based on all this, I increased his tidal volume of 2 600 which made the patient much more comfortable and sickness with a mechanical ventilator. The patient is afebrile. The patient is hypotensive and earlier this morning he was on norepinephrine infusion running at a rate of 21 mcg/m. His urine output is in order of 60 mL an hour. The patient is on IV fluids at 0.9 at the rate of 100 mL an hour. The patient is in atrial fibrillation. He is on an amiodarone drip at 0.5 g per minute as a maintenance. He has a left IJ triple-lumen catheter and the CVP is in the range of 8 and 9 mmHg. The patient had a chest x-ray this morning that showed bilateral basilar infiltrates and bilateral pleural effusions are small. The patient also had some mild cardiomegaly. ET tube was lying low with a tip being around 1. 6 cm above the pavel. The patient remains nothing by mouth. He remains well covered with a combination of cefepime and Flagyl and vancomycin as broad-spectrum antibiotic coverage. Urine culture from 2018 has been negative. Sputum culture from 03/26/2019 is negative and the blood culture from 516 has been negative and the repeat blood culture was sent on 03/27/2019. Hematologic profile was quite abnormal and then consistent with the patient's history of CLL. Hemoglobin is at 7.3 with a platelet count of 149 and a white cell count of 82.3. Anything else no abdominal distention. OG tube is in place and there is no significant drainage from the orogastric tube. Echocardiogram showed segmental wall motion abnormalities along with an ejection fraction of 35-40%. On 03/28/2019 I'm seeing this patient for a follow-up. He was intubated sedated on a mechanical ventilator. The patient is currently on assist control mode of ventilation with a tidal volume of 6000 and FiO2 of 40% with a PEEP of 5 and the rate of 20. Blood gases from today showed a pH of 7.38 with a pCO2 of 27 and pO2 of 159. His chest x-ray still showing bilateral pulmonary infiltrates and cardiomegaly and ET tube is in good location. The patient is producing good urine output and the fluid balance over the past 24 hours has been +3.8 L. He has converted back into normal sinus rhythm. He is on low-dose norepinephrine infusion which is running at 4-5 g per minute. Antibiotic coverage includes a combination of cefepime and vancomycin. He is also on Flagyl. He had a low- grade temperature yesterday with a T-max of 100.2 and currently he is afebrile. He remains nothing by mouth. No significant output from his orogastric tube. No significant abdominal distention. Bowel sounds are hypoactive, nearly absent yet there is no abdominal distention. His echo cardiac damage showed an ejection fraction of 35-40% along with segmental wall motion abnormalities. He is receiving IV fluids at the rate of 100 mL an hour. Discussed the case with cardiology. Discussed the case with oncology. On 03/29/2019 the patient remains intubated on a mechanical ventilator. The patient is sedated with propofol. He is calm and comfortable. Propofol is running at 40 mics. Remains on a mechanical ventilator. Essentially on the same vent setting. Tidal volumes at 6000 with an FiO2 of 40% and PEEP of 5. Blood gas shows further improvement in oxygenation. The pH is at 7.46 and a pCO2 of 28 and pO2 of 163. The patient is a component of acute respiratory alkalosis. Chest x-ray still showing better pulmonary infiltrates and effusion lung bases bilaterally consistent with CHF. The patient is afebrile. Hemodynamically, the patient is on few echograms of norepinephrine infusion for blood pressure support. The patient is producing adequate amount of urine outpu t. The patient was started on IV Lasix. The patient is eating push towards a negative fluid balance over the next 24 hours. The cardiac rhythm is back to atrial fibrillation. The patient was seen again by cardiology. The rate is controlled for now and the patient is on 400 mg of amiodarone by mouth twice a day and metoprolol 12.5 mg by mouth twice a day and Eliquis for long-term anticoagulation was also started. We are hoping to achieve a negative fluid balance over the next 24 hours. Meanwhile, I'm willing to give this patient a sedation holiday and assess his underlying neuro status while being off sedation. He is afebrile. All of the cultures of negative. He is on a broad-spectrum antibiotic coverage utilizing a combination of cefepime and vancomycin. He is also on Flagyl. The patient was started on enteral feeding for nutritional support at the rate of 20 mL an hour of vital high protein. He was able to tolerate that without any significant residual pain no abdominal d istention pain no bowel movements yet. We are going to advance the tube feeds and hold the TPN for now and we're going to continue the current TPN bag and stop it following that as the patient seems to be tolerating tube feeds for the time being. Family is at the bedside. The condition was extended to them at length. IV fluids are currently at KVO. On 03/30/2019 I'm seeing this patient for follow-up. Still intubated on a mechanical ventilator. He was still on the same mechanical ventilator settings with the assist control mode at a tidal volume of 500 rate of 20, and FiO2 of 40% and a PEEP of 5 and a blood gas showed a pH of 7.47 with a pCO2 of 32 and pO2 of 147. Chest x-ray showed stable findings of breath the pleural effusion. Nevertheless, the patient was achieving a good negative fluid balance. He was quite successful mechanical ventilator. I give him a sedation holiday. Discontinue the propofol and following that the patient woke up initially was very drowsy and is the day went by, he became progressively more awake and alert. Was found to more awake, the patient had a weaning parameters that showed a tidal volumes ranging between 450 and 550 with a vital capacity of 951 and a minute ventilation of 13 with a rapid shallow breathing index of 50. Accordingly, the patient was given a spontaneous breathing trial with a pressure support of 5 and a PEEP of 5 and following that he became uncomfortable, restless, tachypneic and he went into atrial fibrillation. The child was called and the patient was placed back on low-dose sedation with propofol time microgra ms per KG per minute. No fever. No chills. The patient is diuresing and the patient is achieving a negative fluid balance. He is receiving his tube feeds and is tolerating this without any major difficulties. He remains on a combination of cefepime and vancomycin as broad-spectrum antibiotic coverage. He remains on diuretics and the patient is receiving IV Lasix 40 mg every 12 hours. We'll hope to achieve a negative fluid balance over the next 24 hours. Blood pressure is being supported with a low dose of norepinephrine infusion. On 03/31/2019, the patient was taken off sedation and he did very well to the point where he stayed awake and alert and he was able to follow commands without any major difficulties. Weaning parameters were checked and the numbers looked adequate. The patient was given a spontaneous breathing trial and following that the patient was extubated to a BiPAP. Currently is on a BiPAP of 10/5 cm of water. Note that the blood gas post spontaneous breathing trial showed a pH of 7.5 with a pCO2 of 35 and pO2 of 148 and this was on a CPAP trial with a pres sure support of 5 and a PEEP of 5 and FiO2 of 40%. Chest x-ray is showing some improvement in the volume status. There is still bilateral pleural effusion. The patient was started on a Lasix drip yesterday at a rate of 5 mg an hour. He has been producing excellent urine output. Her net fluid balance of been -2.2 L for now and will going to continue the Lasix to 40 another 24 hours. Edema is approving all 4 extremities. The patient is in a sinus rhythm. The patient is on 2.5 g per minute of norepinephrine infusion. Afebrile. Still on same antibiotic coverage. White cell count is at 85. Hemoglobin was at 8.9. Renal function stable. He was tolerating his tube feeds earlier and tube feeds were discontinued as the patient was extubated to BiPAP. On 04/01/2019 the patient remains extubated doing well awake and alert and interactive. Following commands and answering questions. Swallow evaluation was done and the patient passed and the patient is provided a diet. He was on Lasix drip and he was urinating adequately and the chest from today shows a moderate-sized bilateral pleural effusion. No cough. No sputum production. No fever. The patient is in normal sinus rhythm. He is on few mics of norepinephrine infusion for blood pressure control. No other significant events overnight. His white cell count is at 76. Hemoglobin is at 9.1. Renal function stable with a creatinine of 1.0. The patient is off vancomycin. He is off Flagyl. He is only on IV cefepime for now. Objective - Vital Signs Vital signs: Vital Signs Temp 99.1 F 04/01/19 08:00 Pulse 84 04/01/19 11:58 Resp 19 04/01/19 11:00 BP 147/93 04/01/19 11:00 Pulse Ox 97 04/01/19 11:00 Intake & Output 03/31/19 04/01/19 04/01/19 18:59 06:59 18:59 Intake Total 629.079 751.873 412.333 Output Total 2175 2652 1000 Balance -1545.921 -1900.127 -587.667 Weight 90.1 kg 81.9 kg Intake: IV 326 424 44 Cefepime 2 gm In Sodium 100 Chloride 0.9% 100 ml @ 200 mls/hr IVPB Q12H [facility] Rx#:[id number] Potassium Chloride 20 meq 150 150 In Water For Injection 1 100ml.bag @ 50 mls/hr IVPB Q2H [facility] Rx#: [id number] Pressure bags 0.9 66 69 24 Sodium Chloride 0.9% 1, 110 105 20 000 ml @ 5 mls/hr IV . Q24H [facility] Rx#:[id number] Intake, IV Titration 303.079 27.873 368.333 Amount Cefepime 2 gm In Sodium 100 Chloride 0.9% 100 ml @ 200 mls/hr IVPB Q12H [facility] Rx#:[id number] Cefepime 2 gm In Sodium 100 Chloride 0.9% 100 ml @ 200 mls/hr IVPB Q12HR [facility] Rx#:[id number] Furosemide 100 mg In 100 68.333 Sodium Chloride 0.9% 90 ml @ 5 MG/HR 5 mls/hr IV .Q20H [facility] Rx#:[id number] Magnesium Sulfate-D5w Pmx 200 1 gm In Dextrose/Water 1 100ml.bag @ 100 mls/hr IVPB Q1H [facility] Rx#: [id number] Norepinephrine 32 mg In 45.33 27.873 Sodium Chloride 0.9% 218 ml @ 0.05 MCG/KG/MIN 2. 128 mls/hr IV .Q24H [facility] Rx#:[id number] Propofol 1,000 mg In 57.749 Empty Bag 1 bag @ Titrate IV .Q0M [facility] Rx#: [id number] Oral 300 Output: Urine 2175 2650 1000 Stool 2 Other: Voiding Method Indwelling Catheter Indwelling Catheter Indwelling Catheter # Bowel Movements 1 ABP, PAP, CO, CI - Last Documented Arterial Blood Pressure 97/51 - Exam Gen. appearance, comfortable on oxygen at 2 L per minute nasal cannula f water. FiO2 is being adjusted to maintain saturation above 90%. Head exam was generally normal. There was no scleral icterus or corneal arcus. Mucous membranes were moist. Neck was supple and without jugular venous distension, thyromegaly, or carotid bruits. Carotids were easily palpable bilaterally. There was no adenopathy. The patient has an orogastric and orotracheal tube are both of them are in place and the patient has a left IJ triple-lumen catheter. Lungs sounds are diminished bilaterally. Breath sounds are otherwise equal and symmetrical. There is dullness to percussion also consistent with pleural effusion Heart sounds are irregular S1-S2 consistent with atrial fibrillation. No significant murmurs appreciated. No right ventricular heave or thrill. Abdominal exam revealed normal bowel sounds. The abdomen was soft, non-tender, and without masses, organomegaly, or appreciable enlargement of the abdominal aorta. Extremities are warm. There is equal and symmetrical pulses in lower extremities bilaterally with +1 pulses. No cyanosis. No clubbing. There is improving edema in lower extremities bilaterally. Neurologically the patient is awake and alert and the patient is following simple commands. Is moving all 4 extremities without any limitation. Examination of the skin revealed no evidence of significant rashes, suspicious appearing nevi or other concerning lesions. - Labs CBC & Chem 7: 04/01/19 04:19 04/01/19 04:19 Labs: Abnormal Lab Results - Last 24 Hours (Table) 03/31/19 03/31/19 04/01/19 Range/Units 12:38 18:14 00:00 WBC (3.8-10.6) k/uL RBC (4.30-5.90) m/uL Hgb (13.0-17.5) gm/dL Hct (39.0-53.0) % RDW (11.5-15.5) % Neutrophils # (Manual) (1.3-7.7) k/uL Lymphocytes # (Manual) (1.0-4.8) k/uL Potassium (3.5-5.1) mmol/L Carbon Dioxide (22-30) mmol/L BUN (9-20) mg/dL Glucose (74-99) mg/dL POC Glucose (mg/dL) 113 H 124 H 106 H (75-99) mg/dL Calcium (8.4-10.2) mg/dL 04/01/19 04/01/19 04/01/19 Range/Units 04:19 04:19 06:10 WBC 76.0 H* (3.8-10.6) k/uL RBC 3.13 L (4.30-5.90) m/uL Hgb 9.1 L (13.0-17.5) gm/dL Hct 28.2 L (39.0-53.0) % RDW 18.4 H (11.5-15.5) % Neutrophils # (Manual) 12.16 H (1.3-7.7) k/uL Lymphocytes # (Manual) 63.08 H (1.0-4.8) k/uL Potassium 3.4 L (3.5-5.1) mmol/L Carbon Dioxide 31 H (22-30) mmol/L BUN 39 H (9-20) mg/dL Glucose 109 H (74-99) mg/dL POC Glucose (mg/dL) 113 H (75-99) mg/dL Calcium 8.1 L (8.4-10.2) mg/dL 04/01/19 Range/Units 12:01 WBC (3.8-10.6) k/uL RBC (4.30-5.90) m/uL Hgb (13.0-17.5) gm/dL Hct (39.0-53.0) % RDW (11.5-15.5) % Neutrophils # (Manual) (1.3-7.7) k/uL Lymphocytes # (Manual) (1.0-4.8) k/uL Potassium (3.5-5.1) mmol/L Carbon Dioxide (22-30) mmol/L BUN (9-20) mg/dL Glucose (74-99) mg/dL POC Glucose (mg/dL) 118 H (75-99) mg/dL Calcium (8.4-10.2) mg/dL Microbiology - Last 24 Hours (Table) 03/27/19 01:10 Blood Culture - Preliminary Blood No Growth after 120 hours Assessment and Plan Plan: 1 shock with profound hypotension currently on pressors. The patient had a acute non-ST segment elevation myocardial infarction. The patient could be also potentially septic and this shock could be a combination of cardiac and septic in nature. The patient is still requiring few mics of norepinephrine infusion for blood pressure control as the patient is being diuresis for now. 2 acute hypoxic respiratory failure , improved and currently the patient is extubated him 2 L of oxygen by nasal cannula. His chest x-ray showing moderate- sized bilateral pleural effusion. 3 acute non-ST segment elevation myocardial infarction, recovered 4 CHF ischemic in nature with ejection fraction of 35% and segmental wall motion abnormalities. 5 paroxysmal atrial fibrillation, current rhythm is sinus. The patient is controlled rate and he is on long-term antibiotic ventilation with Eliquis. 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 7 hematologic abnormalities with an abnormal hematologic profile consistent with CLL. The patient has lymphocytosis, thrombocytopenia and anemia. The patient's counts have been stable. The white cell count remains elevated essentially lymphocytosis in addition to a stable hemoglobin is stable platelet count. 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 Switch this patient to Lasix 40 mg IV every 24 hours. Wean off pressors and discontinue. May consider a thoracentesis of the later stage of the pleural effusions remain unchanged. Advance diet. Physical therapy. Sit him up on a chair. We'll continue to follow.
--- NOTE | 2019-04-01 12:22 | XR ---
EXAMINATION TYPE: XR chest 1V portable DATE OF EXAM: 04/01/2019 COMPARISON: 03/31/2019 INDICATION: Tube placement TECHNIQUE: Single frontal view of the chest is obtained. FINDINGS: The heart size is mildly prominent. The pulmonary vasculature is normal. Mild bibasilar infiltrates are present. A small left pleural effusion is present. Findings appear sim ilar. The endotracheal tube and nasogastric tube is been removed. Left central venous catheter remains in p osition with the tip in the proximal right atrium. No pneumothorax is evident IMPRESSION: 1. Small left pleural effusion. 2. Mild bibasilar infiltrates. 3. Stable left central venous catheter.
[2019-04-01 17:25] LABS: Glucose,Whole Blood 119 mg/dL (75-99)
[2019-04-01 20:44] LABS: Glucose,Whole Blood 118 mg/dL (75-99)
[2019-04-01] MEDS: ATORVASTATIN 20 MG TAB PO SCH (21:10)
[2019-04-01] MEDS: SODIUM CHLORIDE 0.9% 1,000 ML IV SCH (21:10)
[2019-04-01] MEDS: POLYETHYLENE GLYCOL 3350 17 GM POWD.PACK PO SCH (21:12)
--- NOTE | 2019-04-02 00:10 | P.PN ---
Subjective Progress Note Date: 04/01/19 Principal diagnosis: Sepsis and possible aspiration pneumonia and diverticulitis Patient initially admitted hospital with abdominal pain in this patient did have significant increase in size of abdominal lymphadenopathy and possible component of diverticulitis patient was transferred to the ICU because of hypotension , morning of 03/26/2019 the patient did have significant change in his clinical condition and the patient ripped off his IV and leads subsequently did have sign ificant drop in the blood pressure and respiratory distress patient ended up getting intubated on 03/26/2019. On today's evaluation that is 04/01/2019, the patient is afebrile , hemodynamically stable not on pressor support, the patient is breathing comfortably on room air denies having any chest pain or worsening shortness of breath did have occasional cough no nausea no vomiting no abdominal pain and no diarrhea Objective - Vital Signs Vital signs: Vital Signs Temp 99.1 F 04/01/19 08:00 Pulse 84 04/01/19 11:58 Resp 19 04/01/19 11:00 BP 147/93 04/01/19 11:00 Pulse Ox 97 04/01/19 11:00 Intake & Output 03/31/19 04/01/19 04/01/19 18:59 06:59 18:59 Intake Total 629.079 751.873 451.333 Output Total 0655 9582 1575 Balance -1545.921 -1900.127 -1123.667 Weight 90.1 kg 81.9 kg Intake: IV 326 424 83 Cefepime 2 gm In Sodium 100 Chloride 0.9% 100 ml @ 200 mls/hr IVPB Q12H [facility] Rx#:[id number] Potassium Chloride 20 meq 150 150 In Water For Injection 1 100ml.bag @ 50 mls/hr IVPB Q2H [facility] Rx#: [id number] Pressure bags 0.9 66 69 48 Sodium Chloride 0.9% 1, 110 105 35 000 ml @ 5 mls/hr IV . Q24H [facility] Rx#:[id number] Intake, IV Titration 303.079 27.873 368.333 Amount Cefepime 2 gm In Sodium 100 Chloride 0.9% 100 ml @ 200 mls/hr IVPB Q12H [facility] Rx#:[id number] Cefepime 2 gm In Sodium 100 Chloride 0.9% 100 ml @ 200 mls/hr IVPB Q12HR [facility] Rx#:[id number] Furosemide 100 mg In 100 68.333 Sodium Chloride 0.9% 90 ml @ 5 MG/HR 5 mls/hr IV .Q20H [facility] Rx#:[id number] Magnesium Sulfate-D5w Pmx 200 1 gm In Dextrose/Water 1 100ml.bag @ 100 mls/hr IVPB Q1H [facility] Rx#: [id number] Norepinephrine 32 mg In 45.33 27.873 Sodium Chloride 0.9% 218 ml @ 0.05 MCG/KG/MIN 2. 128 mls/hr IV .Q24H [facility] Rx#:[id number] Propofol 1,000 mg In 57.749 Empty Bag 1 bag @ Titrate IV .Q0M [facility] Rx#: [id number] Oral 300 Output: Urine 2175 2650 1575 Stool 2 Other: Voiding Method Indwelling Catheter Indwelling Catheter Indwelling Catheter # Bowel Movements 1 ABP, PAP, CO, CI - Last Documented Arterial Blood Pressure 97/51 - Exam GENERAL DESCRIPTION: The patient awake alert and in no distress HEENT: [Oral mucosa dry] EYES : [pallor or scleral icterus] RESPIRATORY SYSTEM: [Unlabored breathing decreased breath sound at the base] CARDIA VASCULAR SYSTEM: [S1-S2 regular rate and rhythm no murmur] GI: [Abdominal soft there's no tenderness no organomegaly] EXTREMITIES: [No edema feet] - Labs CBC & Chem 7: 04/01/19 04:19 04/01/19 04:19 Labs: Abnormal Lab Results - Last 24 Hours (Table) 03/31/19 04/01/19 04/01/19 Range/Units 18:14 00:00 04:19 WBC (3.8-10.6) k/uL RBC (4.30-5.90) m/uL Hgb (13.0-17.5) gm/dL Hct (39.0-53.0) % RDW (11.5-15.5) % Neutrophils # (Manual) (1.3-7.7) k/uL Lymphocytes # (Manual) (1.0-4.8) k/uL Potassium 3.4 L (3.5-5.1) mmol/L Carbon Dioxide 31 H (22-30) mmol/L BUN 39 H (9-20) mg/dL Glucose 109 H (74-99) mg/dL POC Glucose (mg/dL) 124 H 106 H (75-99) mg/dL Calcium 8.1 L (8.4-10.2) mg/dL 04/01/19 04/01/19 04/01/19 Range/Units 04:19 06:10 12:01 WBC 76.0 H* (3.8-10.6) k/uL RBC 3.13 L (4.30-5.90) m/uL Hgb 9.1 L (13.0-17.5) gm/dL Hct 28.2 L (39.0-53.0) % RDW 18.4 H (11.5-15.5) % Neutrophils # (Manual) 12.16 H (1.3-7.7) k/uL Lymphocytes # (Manual) 63.08 H (1.0-4.8) k/uL Potassium (3.5-5.1) mmol/L Carbon Dioxide (22-30) mmol/L BUN (9-20) mg/dL Glucose (74-99) mg/dL POC Glucose (mg/dL) 113 H 118 H (75-99) mg/dL Calcium (8.4-10.2) mg/dL Microbiology - Last 24 Hours (Table) 03/27/19 01:10 Blood Culture - Preliminary Blood No Growth after 120 hours Assessment and Plan Assessment: 1-patient was initially admitted hospital with abdominal pain from significant decrease in size of his lymphadenopathy with concern for possible compression of the intestine with component of ischemic colitis versus diverticulitis 2-patient with new fever after the patient did have significant change in his clinical condition with acute vent dependent respiratory failure with a possible component of aspiration pneumonitis--- culture has been negative and the patient had been successfully extubated Plan: 1-the patient will be continued on cefepime 2 g every 12 hours, And monitor his clinical course closely Continue supportive care Time with Patient: Less than 30
[2019-04-02 04:30] LABS: Calcium 8.1 mg/dL (8.4-10.2); Magnesium 2.3 mg/dL (1.6-2.3); Phosphorus 3.1 mg/dL (2.5-4.5); Potassium 3.6 mmol/L (3.5-5.1)
[2019-04-02] MEDS ORDERED: POTASSIUM CHLORIDE ER 20 MEQ TAB.ER PO SCH (06:00)
[2019-04-02 07:01] LABS: Anisocytosis Slight; HCT 27.4 % (39.0-53.0); HGB 8.6 gm/dL (13.0-17.5); Hypochromasia Slight; MCH 29.3 pg (25.0-35.0); MCHC 31.5 g/dL (31.0-37.0); MCV 92.9 fL (80.0-100.0); Macrocytosis Slight; Mean Platelet Volume 8.4; Platelet Count 235 k/uL (150-450); RBC 2.95 m/uL (4.30-5.90); RDW 18.5 % (11.5-15.5)
[2019-04-02] MEDS: INSULIN ASPART (NovoLOG) 100 UNIT/ML VIAL SQ SCH ×4 (07:06→21:27)
[2019-04-02 07:08] LABS: Glucose,Whole Blood 113 mg/dL (75-99)
--- NOTE | 2019-04-02 07:43 | XR ---
EXAMINATION TYPE: XR chest 1V portable DATE OF EXAM: 04/02/2019 COMPARISON: Prior chest x-ray 04/01/2019 HISTORY: Shortness of breath TECHNIQUE: Single frontal view of the chest is obtained. FINDINGS: Left jugular central venous catheter is stable, distal tip at the cavoatrial junction. The re is no pneumothorax. Bibasilar increased density persists, the left hemidiaphragm is obscured. Hear t size is stable, patient is rotated and there are overlying cardiac leads. Prominence of pulmonary a rtery may be indicative of pulmonary artery hypertension. Aorta is dense. IMPRESSION: No significant interval change. Basilar effusions and associated edema versus atelectasi s, pneumonia not excluded. Additional findings above.
[2019-04-02] MEDS: IPRATROPIUM-ALBUTEROL 3 ML NEB INHALATION SCH ×4 (07:58→20:16)
[2019-04-02 08:27] LABS: Lymphocytes # (M) 41.65 k/uL (1.0-4.8); Monocytes # (M) 2.45 k/uL (0-1.0); Neutrophils % (M) 10 %; Nucleated Red Blood Cells 0 /100 WBC (0-0); Total Cells Counted 100
[2019-04-02 08:29] LABS: Poikilocytosis (M) Present
[2019-04-02] MEDS: METOPROLOL TARTRATE 25 MG TAB PO SCH ×2 (08:57→21:26)
[2019-04-02] MEDS: APIXABAN 5 MG TAB PO SCH ×2 (08:57→21:26)
[2019-04-02] MEDS: FUROSEMIDE 10 MG/ML 4 ML VIAL IV SCH (08:57)
[2019-04-02] MEDS: AMIODARONE 200 MG TAB PO SCH ×2 (08:57→21:26)
[2019-04-02] MEDS: ASPIRIN 81 MG PO SCH (08:57)
--- NOTE | 2019-04-02 09:01 | P.PN ---
Subjective Progress Note Date: 04/02/19 Principal diagnosis: Acute non-ST elevation VT This is a pleasant 78-year-old gentleman with a past medical history significant for paroxysmal atrial fibrillation as well as history of CLL who presented to the hospital with progressive abdominal discomfort and was found to have large mass in the abdomen. Subsequently the patient developed acute respiratory distress requiring intubation and mechanical ventilation. He was ruled for acute non-ST patient myocardial infarction which was treated medically. The echocardiogram revealed and impaired LV function with wall motion abnormalities. I did follow-up on the patient, today 04/02/2019, overall he is doing better. He was extubated 2 days ago. Hemodynamically he is still requiring small dose of norepinephrine. He is in normal sinus mechanism. He continues to be on oral anticoagulation and also he is on metoprolol by mouth. The chest x-ray continues to show finding of fluid overloaded currently he is on Lasix IV at 40 mg daily. We'll continue following up with him Objective - Vital Signs Vital signs: Vital Signs Temp 97.7 F 04/02/19 04:00 Pulse 86 04/02/19 08:08 Resp 20 04/02/19 07:00 BP 89/51 04/02/19 03:30 Pulse Ox 90 L 04/02/19 07:58 Intake & Output 04/01/19 04/02/19 04/02/19 18:59 06:59 18:59 Intake Total 1031.333 578.555 17.557 Output Total 2125 595 40 Balance -1093.667 -16.445 -22.443 Weight 85.3 kg Intake: IV 127 144 11 Pressure bags 0.9 72 69 6 Sodium Chloride 0.9% 1, 55 75 5 000 ml @ 5 mls/hr IV . Q24H [facility] Rx#:[id number] Intake, IV Titration 368.333 34.555 6.557 Amount Cefepime 2 gm In Sodium 100 Chloride 0.9% 100 ml @ 200 mls/hr IVPB Q12HR [facility] Rx#:[id number] Furosemide 100 mg In 68.333 Sodium Chloride 0.9% 90 ml @ 5 MG/HR 5 mls/hr IV .Q20H [facility] Rx#:[id number] Magnesium Sulfate-D5w Pmx 200 1 gm In Dextrose/Water 1 100ml.bag @ 100 mls/hr IVPB Q1H [facility] Rx#: [id number] Norepinephrine 32 mg In 34.555 6.557 Sodium Chloride 0.9% 218 ml @ 0.05 MCG/KG/MIN 2. 128 mls/hr IV .Q24H [facility] Rx#:[id number] Oral 536 400 Output: Urine 2125 595 40 Other: Voiding Method Indwelling Catheter Indwelling Catheter Indwelling Catheter ABP, PAP, CO, CI - Last Documented Arterial Blood Pressure 107/51 - Constitutional General appearance: Present: no acute distress - Respiratory Respiratory: bilateral: diminished - Cardiovascular Rhythm: regular Heart sounds: normal: S1, S2 - Labs CBC & Chem 7: 04/02/19 04:00 04/02/19 04:00 Labs: Abnormal Lab Results - Last 24 Hours (Table) 04/01/19 04/01/19 04/01/19 Range/Units 12:01 17:14 20:32 WBC (3.8-10.6) k/uL RBC (4.30-5.90) m/uL Hgb (13.0-17.5) gm/dL Hct (39.0-53.0) % RDW (11.5-15.5) % Lymphocytes # (Manual) (1.0-4.8) k/uL Monocytes # (Manual) (0-1.0) k/uL Carbon Dioxide (22-30) mmol/L BUN (9-20) mg/dL POC Glucose (mg/dL) 118 H 119 H 118 H (75-99) mg/dL Calcium (8.4-10.2) mg/dL 04/02/19 04/02/19 04/02/19 Range/Units 04:00 04:00 06:56 WBC 49.0 H (3.8-10.6) k/uL RBC 2.95 L (4.30-5.90) m/uL Hgb 8.6 L (13.0-17.5) gm/dL Hct 27.4 L (39.0-53.0) % RDW 18.5 H (11.5-15.5) % Lymphocytes # (Manual) 41.65 H (1.0-4.8) k/uL Monocytes # (Manual) 2.45 H (0-1.0) k/uL Carbon Dioxide 31 H (22-30) mmol/L BUN 37 H (9-20) mg/dL POC Glucose (mg/dL) 113 H (75-99) mg/dL Calcium 8.1 L (8.4-10.2) mg/dL Microbiology - Last 24 Hours (Table) 03/27/19 01:10 Blood Culture - Final Blood No Growth after 144 hours Assessment and Plan Assessment: Assessment #1 acute respiratory failure secondary to pneumonia #2 acute non-ST elevation myocardial infarction #3 ischemic cardiomyopathy #4 paroxysmal atrial fibrillation #5 chronic lymphocytic leukemia #6 severe anemia Plan #1 continue the current medical regimen #2 continue the current dose of Lasix IV #3 continue monitor the hemoglobin as well as kidney function #4 repeat the echocardiogram #5 follow-up with the patient
[2019-04-02] MEDS: CEFEPIME 2 GM in SODIUM CHLORIDE 0.9% 100 ML IVPB SCH ×2 (09:07→21:27)
--- NOTE | 2019-04-02 09:35 | P.PN ---
Subjective Progress Note Date: 04/02/19 Patient seen and examined in follow-up doing well reports that he's eating the patient has not been up in the bedside chair or up ambulating as yet. Denies any pain at present working with his IS, patient's electrolytes are much better today after replacement, Hemoglobin 8.6 WBC count down to 49 from 76. Patient with normal saturations on room air continues to be afebrile. No acute events overnight Objective - Vital Signs Vital signs: Vital Signs Temp 97.7 F 04/02/19 04:00 Pulse 86 04/02/19 08:08 Resp 20 04/02/19 07:00 BP 89/51 04/02/19 03:30 Pulse Ox 90 L 04/02/19 07:58 Intake & Output 04/01/19 04/02/19 04/02/19 18:59 06:59 18:59 Intake Total 1031.333 578.555 17.557 Output Total 2125 595 40 Balance -1093.667 -16.445 -22.443 Weight 85.3 kg Intake: IV 127 144 11 Pressure bags 0.9 72 69 6 Sodium Chloride 0.9% 1, 55 75 5 000 ml @ 5 mls/hr IV . Q24H [facility] Rx#:[id number] Intake, IV Titration 368.333 34.555 6.557 Amount Cefepime 2 gm In Sodium 100 Chloride 0.9% 100 ml @ 200 mls/hr IVPB Q12HR [facility] Rx#:[id number] Furosemide 100 mg In 68.333 Sodium Chloride 0.9% 90 ml @ 5 MG/HR 5 mls/hr IV .Q20H [facility] Rx#:[id number] Magnesium Sulfate-D5w Pmx 200 1 gm In Dextrose/Water 1 100ml.bag @ 100 mls/hr IVPB Q1H [facility] Rx#: [id number] Norepinephrine 32 mg In 34.555 6.557 Sodium Chloride 0.9% 218 ml @ 0.05 MCG/KG/MIN 2. 128 mls/hr IV .Q24H [facility] Rx#:[id number] Oral 536 400 Output: Urine 2125 595 40 Other: Voiding Method Indwelling Catheter Indwelling Catheter Indwelling Catheter ABP, PAP, CO, CI - Last Documented Arterial Blood Pressure 107/51 - Exam Constitutional: No acute distress, conversant, pleasant Eyes: Anicteric sclerae, moist conjunctiva, no lid-lag, PERRLA ENMT: NC/AT,Oropharynx clear, no erythema, exudates Neck:Supple, FROM, no masses, or JVD, No carotid bruits; No thyromegaly, left IJ in place Lungs: Diminished in the bases bilaterally with bibasilar crackles, no respiratory distress on 2 L nasal cannula Cardiovascular: Heart regular in rate and rhythm, No murmurs, gallops, or rubs no peripheral edema Abdominal: Soft Nontender, nom distended, no guarding, no rebound or rigidity, Normoactive bowel sounds No hepatomegaly, No splenomegaly, No palpable mass No abdominal wall hernia noted Skin: Normal temperature, tone, texture, turgor, No induration No subcutaneous nodules, No rash, lesions, No ulcers Extremities:No digital cyanosis No clubbing, Pedal pulses intact and symmetrical Radial pulses intact and symmetrical Normal gait and station, No calf tenderness Neuro: Awake and following simple commands squeezing fingers pupils are reactive to light, no seizure activity - Labs CBC & Chem 7: 04/02/19 04:00 04/02/19 04:00 Labs: Abnormal Lab Results - Last 24 Hours (Table) 04/01/19 04/01/19 04/01/19 Range/Units 12:01 17:14 20:32 WBC (3.8-10.6) k/uL RBC (4.30-5.90) m/uL Hgb (13.0-17.5) gm/dL Hct (39.0-53.0) % RDW (11.5-15.5) % Lymphocytes # (Manual) (1.0-4.8) k/uL Monocytes # (Manual) (0-1.0) k/uL Carbon Dioxide (22-30) mmol/L BUN (9-20) mg/dL POC Glucose (mg/dL) 118 H 119 H 118 H (75-99) mg/dL Calcium (8.4-10.2) mg/dL 04/02/19 04/02/19 04/02/19 Range/Units 04:00 04:00 06:56 WBC 49.0 H (3.8-10.6) k/uL RBC 2.95 L (4.30-5.90) m/uL Hgb 8.6 L (13.0-17.5) gm/dL Hct 27.4 L (39.0-53.0) % RDW 18.5 H (11.5-15.5) % Lymphocytes # (Manual) 41.65 H (1.0-4.8) k/uL Monocytes # (Manual) 2.45 H (0-1.0) k/uL Carbon Dioxide 31 H (22-30) mmol/L BUN 37 H (9-20) mg/dL POC Glucose (mg/dL) 113 H (75-99) mg/dL Calcium 8.1 L (8.4-10.2) mg/dL Microbiology - Last 24 Hours (Table) 03/27/19 01:10 Blood Culture - Final Blood No Growth after 144 hours Assessment and Plan (1) Shock Narrative/Plan: * Multifactorial due to cardiogenic secondary to non-STEMI with ICM superimposed on septic shock due PNA and intrabdominal pathology * Patient continued on IV pressors currently down to .04 g/kg/min of levophed , CVP 8-9 * Continued on broad-spectrum antibiotics with cefepime with infectious disease following Current Visit: Yes Status: Acute Code(s): R57.9 - SHOCK, UNSPECIFIED SNOMED Code(s): 95178872 (2) Acute respiratory failure with hypoxia Narrative/Plan: * Secondary to septic shock with superimposed by basilar pneumonia with pleural effusions small to moderate in size * Patient recently extubated 03/31 continues to wean oxygen currently down to 2 L via nasal cannula * chest x-ray yesterday showing stable basilar atelectasis and infiltrates with bilateral pleural effusions (consider chest ultrasound to evaluate for thoracentesis), repeat chest x-ray pending * Continue scheduled and when necessary DuoNeb bronchodilator breathing treatments Current Visit: Yes Status: Acute Priority: High Code(s): J96.01 - ACUTE RESPIRATORY FAILURE WITH HYPOXIA SNOMED Code(s): 61423200 (3) Non-STEMI (non-ST elevated myocardial infarction) Narrative/Plan: * Initial troponin less than 0.012. EKG ordered yesterday for concerns of tachycardia, with ST depression, troponin reordered to rule out ACS. * Repeat troponin 3.650, 8.210, 20.4, 31. Possibly related to true cardiac event from severe anemia and hypotension. * Echocardiogram shows EF 35-40% with hypokinetic wall motion. * Continue Telemetry monitoring. Continue aspirin. * As per Dr. Rajput, not candidate for aggressive cardiac workup. Follow cardiology recommendations. No heparin due to severe anemia. Current Visit: Yes Status: Acute Code(s): I21.4 - NON-ST ELEVATION (NSTEMI) MYOCARDIAL INFARCTION SNOMED Code(s): 40663142 (4) Ischemic cardiomyopathy Narrative/Plan: * Secondary to non STEMI * Initial Echocardiogram revealed impaired LV function EF of 35-40% with wall motion abnormalities, repeat echocardiogram ordered * Continue metoprolol continue aspirin monitor urine output and Lsix ggt discontinued but continued on the IV Lasix * Cardiology following Current Visit: Yes Status: Acute Code(s): I25.5 - ISCHEMIC CARDIOMYOPATHY SNOMED Code(s): 591896329 (5) Paroxysmal atrial fibrillation Narrative/Plan: * Currently rate controlled And currently in sinus rhythm * Continue metoprolol and Amiodarone PO * Continue anticoagulation with eliquis Current Visit: Yes Status: Acute Code(s): I48.0 - PAROXYSMAL ATRIAL FIBRILLATION SNOMED Code(s): 170749706 (6) Leukocytosis Narrative/Plan: * CLL superimposed on sepsis concern for progression versus reactive inflammation * Appreciate hematology recommendations Current Visit: Yes Status: Acute Priority: Medium Code(s): D72.829 - ELEVATED WHITE BLOOD CELL COUNT, UNSPECIFIED SNOMED Code(s): 120433038 (7) CLL (chronic lymphocytic leukemia) Narrative/Plan: * Profound lymphocytosis thrombocytopenia and anemia consistent with underlying CLL * Noted significant enlargement of intra-abdominal lymphadenopathy causing mass effect and abdominal structures including the bowel and kidneys Current Visit: No Status: Chronic Priority: High Code(s): C91.10 - CHRONIC LYMPHOCYTIC LEUK OF B-CELL TYPE NOT ACHIEVE REMIS SNOMED Code(s): 78338189 (8) Electrolyte depletion Narrative/Plan: * Continue potassium and mag replacement protocols Current Visit: Yes Status: Resolved Code(s): E87.8 - OTH DISORDERS OF ELECTROLYTE AND FLUID BALANCE, NEC SNOMED Code(s): 36738221 Plan: Disposition * Patient doing well continue current course * Appreciate consultants recommendations, continue to monitor daily and update family with plan of care
--- NOTE | 2019-04-02 11:16 | P.PN ---
Subjective Progress Note Date: 04/02/19 On today's evaluation of 03/27/2019 I'm seeing this patient for a follow-up. The patient is currently intubated on a mechanical ventilator. The patient is known history of CLL receiving FOLFOX treatment on outpatient basis.. The patient came in for increased abdominal pain and subsequently the patient went into respiratory failure and hemodynamic collapse. The patient suffered an acute non-ST segment elevation myocardial infarction and troponin peaked at 31. Cardiology is on the case This morning, the patient was sedated with propofol at 50 g per KG per minute. The patient is intubated on a mechanical ventilator. Earlier this morning the patient was on a volume cycle mode of ventilation with a tidal volume of 600 with a rate of 20, FiO2 of 40% and a PEEP of 5. The patient is intubated with a #8 ET tube. The blood gases from this morning showed a pH of 7.39 with a pCO2 of 28 and pO2 of 147. The patient was still having higher tidal volumes and is minute ventilation was quite elevated. Based on all this, I increased his tidal volume of 2 600 which made the patient much more comfortable and sickness with a mechanical ventilator. The patient is afebrile. The patient is hypotensive and earlier this morning he was on norepinephrine infusion running at a rate of 21 mcg/m. His urine output is in order of 60 mL an hour. The patient is on IV fluids at 0.9 at the rate of 100 mL an hour. The patient is in atrial fibrillation. He is on an amiodarone drip at 0.5 g per minute as a maintenance. He has a left IJ triple-lumen catheter and the CVP is in the range of 8 and 9 mmHg. The patient had a chest x-ray this morning that showed bilateral basilar infiltrates and bilateral pleural effusions are small. The patient also had some mild cardiomegaly. ET tube was lying low with a tip being around 1. 6 cm above the pavel. The patient remains nothing by mouth. He remains well covered with a combination of cefepime and Flagyl and vancomycin as broad-spectrum antibiotic coverage. Urine culture from 2018 has been negative. Sputum culture from 03/26/2019 is negative and the blood culture from 516 has been negative and the repeat blood culture was sent on 03/27/2019. Hematologic profile was quite abnormal and then consistent with the patient's history of CLL. Hemoglobin is at 7.3 with a platelet count of 149 and a white cell count of 82.3. Anything else no abdominal distention. OG tube is in place and there is no significant drainage from the orogastric tube. Echocardiogram showed segmental wall motion abnormalities along with an ejection fraction of 35-40%. On 03/28/2019 I'm seeing this patient for a follow-up. He was intubated sedated on a mechanical ventilator. The patient is currently on assist control mode of ventilation with a tidal volume of 6000 and FiO2 of 40% with a PEEP of 5 and the rate of 20. Blood gases from today showed a pH of 7.38 with a pCO2 of 27 and pO2 of 159. His chest x-ray still showing bilateral pulmonary infiltrates and cardiomegaly and ET tube is in good location. The patient is producing good urine output and the fluid balance over the past 24 hours has been +3.8 L. He has converted back into normal sinus rhythm. He is on low-dose norepinephrine infusion which is running at 4-5 g per minute. Antibiotic coverage includes a combination of cefepime and vancomycin. He is also on Flagyl. He had a low- grade temperature yesterday with a T-max of 100.2 and currently he is afebrile. He remains nothing by mouth. No significant output from his orogastric tube. No significant abdominal distention. Bowel sounds are hypoactive, nearly absent yet there is no abdominal distention. His echo cardiac damage showed an ejection fraction of 35-40% along with segmental wall motion abnormalities. He is receiving IV fluids at the rate of 100 mL an hour. Discussed the case with cardiology. Discussed the case with oncology. On 03/29/2019 the patient remains intubated on a mechanical ventilator. The patient is sedated with propofol. He is calm and comfortable. Propofol is running at 40 mics. Remains on a mechanical ventilator. Essentially on the same vent setting. Tidal volumes at 6000 with an FiO2 of 40% and PEEP of 5. Blood gas shows further improvement in oxygenation. The pH is at 7.46 and a pCO2 of 28 and pO2 of 163. The patient is a component of acute respiratory alkalosis. Chest x-ray still showing better pulmonary infiltrates and effusion lung bases bilaterally consistent with CHF. The patient is afebrile. Hemodynamically, the patient is on few echograms of norepinephrine infusion for blood pressure support. The patient is producing adequate amount of urine outpu t. The patient was started on IV Lasix. The patient is eating push towards a negative fluid balance over the next 24 hours. The cardiac rhythm is back to atrial fibrillation. The patient was seen again by cardiology. The rate is controlled for now and the patient is on 400 mg of amiodarone by mouth twice a day and metoprolol 12.5 mg by mouth twice a day and Eliquis for long-term anticoagulation was also started. We are hoping to achieve a negative fluid balance over the next 24 hours. Meanwhile, I'm willing to give this patient a sedation holiday and assess his underlying neuro status while being off sedation. He is afebrile. All of the cultures of negative. He is on a broad-spectrum antibiotic coverage utilizing a combination of cefepime and vancomycin. He is also on Flagyl. The patient was started on enteral feeding for nutritional support at the rate of 20 mL an hour of vital high protein. He was able to tolerate that without any significant residual pain no abdominal d istention pain no bowel movements yet. We are going to advance the tube feeds and hold the TPN for now and we're going to continue the current TPN bag and stop it following that as the patient seems to be tolerating tube feeds for the time being. Family is at the bedside. The condition was extended to them at length. IV fluids are currently at KVO. On 03/30/2019 I'm seeing this patient for follow-up. Still intubated on a mechanical ventilator. He was still on the same mechanical ventilator settings with the assist control mode at a tidal volume of 500 rate of 20, and FiO2 of 40% and a PEEP of 5 and a blood gas showed a pH of 7.47 with a pCO2 of 32 and pO2 of 147. Chest x-ray showed stable findings of breath the pleural effusion. Nevertheless, the patient was achieving a good negative fluid balance. He was quite successful mechanical ventilator. I give him a sedation holiday. Discontinue the propofol and following that the patient woke up initially was very drowsy and is the day went by, he became progressively more awake and alert. Was found to more awake, the patient had a weaning parameters that showed a tidal volumes ranging between 450 and 550 with a vital capacity of 951 and a minute ventilation of 13 with a rapid shallow breathing index of 50. Accordingly, the patient was given a spontaneous breathing trial with a pressure support of 5 and a PEEP of 5 and following that he became uncomfortable, restless, tachypneic and he went into atrial fibrillation. The child was called and the patient was placed back on low-dose sedation with propofol time microgra ms per KG per minute. No fever. No chills. The patient is diuresing and the patient is achieving a negative fluid balance. He is receiving his tube feeds and is tolerating this without any major difficulties. He remains on a combination of cefepime and vancomycin as broad-spectrum antibiotic coverage. He remains on diuretics and the patient is receiving IV Lasix 40 mg every 12 hours. We'll hope to achieve a negative fluid balance over the next 24 hours. Blood pressure is being supported with a low dose of norepinephrine infusion. On 03/31/2019, the patient was taken off sedation and he did very well to the point where he stayed awake and alert and he was able to follow commands without any major difficulties. Weaning parameters were checked and the numbers looked adequate. The patient was given a spontaneous breathing trial and following that the patient was extubated to a BiPAP. Currently is on a BiPAP of 10/5 cm of water. Note that the blood gas post spontaneous breathing trial showed a pH of 7.5 with a pCO2 of 35 and pO2 of 148 and this was on a CPAP trial with a pres sure support of 5 and a PEEP of 5 and FiO2 of 40%. Chest x-ray is showing some improvement in the volume status. There is still bilateral pleural effusion. The patient was started on a Lasix drip yesterday at a rate of 5 mg an hour. He has been producing excellent urine output. Her net fluid balance of been -2.2 L for now and will going to continue the Lasix to 40 another 24 hours. Edema is approving all 4 extremities. The patient is in a sinus rhythm. The patient is on 2.5 g per minute of norepinephrine infusion. Afebrile. Still on same antibiotic coverage. White cell count is at 85. Hemoglobin was at 8.9. Renal function stable. He was tolerating his tube feeds earlier and tube feeds were discontinued as the patient was extubated to BiPAP. On 04/01/2019 the patient remains extubated doing well awake and alert and interactive. Following commands and answering questions. Swallow evaluation was done and the patient passed and the patient is provided a diet. He was on Lasix drip and he was urinating adequately and the chest from today shows a moderate-sized bilateral pleural effusion. No cough. No sputum production. No fever. The patient is in normal sinus rhythm. He is on few mics of norepinephrine infusion for blood pressure control. No other significant events overnight. His white cell count is at 76. Hemoglobin is at 9.1. Renal function stable with a creatinine of 1.0. The patient is off vancomycin. He is off Flagyl. He is only on IV cefepime for now. On 04/02/2019, patient is doing extremely well. Awake and alert. No respiratory distress. Chest x-ray shows a small left-sided pleural effusion and small right-sided pleural effusion is also present. He is on 2 L of oxygen by nasal cannula. He is on IV cefepime. He is on IV Lasix. No fever. No chills. Tolerating his diet. He is on 2 g per minute of norepinephrine infusion which should be weaned off problems today. Meanwhile, the patient is doing extremely well as is recovering from his acute respiratory failure. Objective - Vital Signs Vital signs: Vital Signs Temp 97.8 F 04/02/19 08:00 Pulse 85 04/02/19 10:30 Resp 22 04/02/19 10:30 BP 98/61 04/02/19 10:30 Pulse Ox 93 L 04/02/19 10:30 Intake & Output 04/01/19 04/02/19 04/02/19 18:59 06:59 18:59 Intake Total 1031.333 578.555 450.557 Output Total 2125 595 565 Balance -1093.667 -16.445 -114.443 Weight 85.3 kg Intake: IV 127 144 44 Pressure bags 0.9 72 69 24 Sodium Chloride 0.9% 1, 55 75 20 000 ml @ 5 mls/hr IV . Q24H [facility] Rx#:[id number] Intake, IV Titration 368.333 34.555 106.557 Amount Cefepime 2 gm In Sodium 100 100 Chloride 0.9% 100 ml @ 200 mls/hr IVPB Q12HR [facility] Rx#:[id number] Furosemide 100 mg In 68.333 Sodium Chloride 0.9% 90 ml @ 5 MG/HR 5 mls/hr IV .Q20H [facility] Rx#:[id number] Magnesium Sulfate-D5w Pmx 200 1 gm In Dextrose/Water 1 100ml.bag @ 100 mls/hr IVPB Q1H [facility] Rx#: [id number] Norepinephrine 32 mg In 34.555 6.557 Sodium Chloride 0.9% 218 ml @ 0.05 MCG/KG/MIN 2. 128 mls/hr IV .Q24H [facility] Rx#:[id number] Oral 536 400 300 Output: Urine 2125 595 565 Other: Voiding Method Indwelling Catheter Indwelling Catheter Indwelling Catheter ABP, PAP, CO, CI - Last Documented Arterial Blood Pressure 93/43 - Exam Gen. appearance, comfortable on oxygen at 2 L per minute nasal cannula f water. FiO2 is being adjusted to maintain saturation above 90%. Head exam was generally normal. There was no scleral icterus or corneal arcus. Mucous membranes were moist. Neck was supple and without jugular venous distension, thyromegaly, or carotid bruits. Carotids were easily palpable bilaterally. There was no adenopathy. The patient has an orogastric and orotracheal tube are both of them are in place and the patient has a left IJ triple-lumen catheter. Lungs sounds are diminished bilaterally. Breath sounds are otherwise equal and symmetrical. There is dullness to percussion also consistent with pleural effusion Heart sounds are irregular S1-S2 consistent with atrial fibrillation. No significant murmurs appreciated. No right ventricular heave or thrill. Abdominal exam revealed normal bowel sounds. The abdomen was soft, non-tender, and without masses, organomegaly, or appreciable enlargement of the abdominal aorta. Extremities are warm. There is equal and symmetrical pulses in lower extremities bilaterally with +1 pulses. No cyanosis. No clubbing. There is improving edema in lower extremities bilaterally. Neurologically the patient is awake and alert and the patient is following simple commands. Is moving all 4 extremities without any limitation. Examination of the skin revealed no evidence of significant rashes, suspicious appearing nevi or other concerning lesions. - Labs CBC & Chem 7: 04/02/19 04:00 04/02/19 10:25 Labs: Abnormal Lab Results - Last 24 Hours (Table) 04/01/19 04/01/19 04/01/19 Range/Units 12:01 17:14 20:32 WBC (3.8-10.6) k/uL RBC (4.30-5.90) m/uL Hgb (13.0-17.5) gm/dL Hct (39.0-53.0) % RDW (11.5-15.5) % Lymphocytes # (Manual) (1.0-4.8) k/uL Monocytes # (Manual) (0-1.0) k/uL Carbon Dioxide (22-30) mmol/L BUN (9-20) mg/dL POC Glucose (mg/dL) 118 H 119 H 118 H (75-99) mg/dL Calcium (8.4-10.2) mg/dL 04/02/19 04/02/19 04/02/19 Range/Units 04:00 04:00 06:56 WBC 49.0 H (3.8-10.6) k/uL RBC 2.95 L (4.30-5.90) m/uL Hgb 8.6 L (13.0-17.5) gm/dL Hct 27.4 L (39.0-53.0) % RDW 18.5 H (11.5-15.5) % Lymphocytes # (Manual) 41.65 H (1.0-4.8) k/uL Monocytes # (Manual) 2.45 H (0-1.0) k/uL Carbon Dioxide 31 H (22-30) mmol/L BUN 37 H (9-20) mg/dL POC Glucose (mg/dL) 113 H (75-99) mg/dL Calcium 8.1 L (8.4-10.2) mg/dL Microbiology - Last 24 Hours (Table) 03/27/19 01:10 Blood Culture - Final Blood No Growth after 144 hours Assessment and Plan Plan: 1 shock with profound hypotension currently on pressors. Clinically improved. The patient is on few mics of norepinephrine infusion for blood pressure support which will be weaned over the next 24 hours 2 acute hypoxic respiratory failure , improved and currently the patient is extubated him 2 L of oxygen by nasal cannula. His chest x-ray showing small to moderate-sized bilateral pleural effusion. The effusion is a much improved compared to yesterday 3 acute non-ST segment elevation myocardial infarction, recovered 4 CHF ischemic in nature with ejection fraction of 35% and segmental wall motion abnormalities. 5 paroxysmal atrial fibrillation, current rhythm is sinus. The patient is controlled rate and he is on long-term antibiotic ventilation with Eliquis. 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 7 hematologic abnormalities with an abnormal hematologic profile consistent with CLL. The patient has lymphocytosis, thrombocytopenia and anemia. The patient's counts have been stable. The white cell count remains elevated essentially lymphocytosis in addition to a stable hemoglobin is stable platelet count. 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 Titrate levo fed and discontinue. Continue Eliquis. Continue IV cefepime. Cardiac rhythm is sinus. We'll keep in ICU for another 24 hours and move him up to oncology units in a.m.
[2019-04-02 11:59] LABS: Glucose,Whole Blood 116 mg/dL (75-99)
--- NOTE | 2019-04-02 15:08 | ECHOF ---
Referral Reason:limited for EF MEASUREMENTS -------- HEIGHT: 172.7 cm WEIGHT: 85.3 kg BP: FINDINGS -------- Limited Study Overall left ventricular systolic function is moderately impaired with, an EF between 35 - 40 %. Mi d inferoseptal LV wall motion is hypokinetic. Apical anterior LV wall motion is hypokinetic. Ap ical lateral LV wall motion is hypokinetic. Apical inferior LV wall motion is hypokinetic. Apic al septum LV wall motion is hypokinetic. xx ml of Lumason was utilized for enhancement of images. CONCLUSIONS -------- 1. Limited Study 2. Overall left ventricular systolic function is moderately impaired with, an EF between 35 - 40 %. 3. Mid inferoseptal LV wall motion is hypokinetic. 4. Apical anterior LV wall motion is hypokinetic. 5. Apical lateral LV wall motion is hypokinetic. 6. Apical inferior LV wall motion is hypokinetic. 7. Apical septum LV wall motion is hypokinetic. 8. xx ml of Lumason was utilized for enhancement of images. OFFSET ASSISTANT PRESS OPERATOR: Renita Newton [facility]
[2019-04-02 17:57] LABS: Glucose,Whole Blood 106 mg/dL (75-99)
[2019-04-02] MEDS: SODIUM CHLORIDE 0.9% 1,000 ML IV SCH (20:11)
[2019-04-02] MEDS: NOREPINEPHRINE 32 MG in SODIUM CHLORIDE 0.9% 218 ML IV SCH (20:11)
[2019-04-02 20:56] LABS: Glucose,Whole Blood 131 mg/dL (75-99)
[2019-04-02] MEDS: ATORVASTATIN 20 MG TAB PO SCH (21:26)
--- NOTE | 2019-04-02 22:04 | P.PN ---
Subjective Progress Note Date: 04/02/19 Principal diagnosis: possible aspiration pneumonia Patient initially admitted hospital with abdominal pain in this patient did have significant increase in size of abdominal lymphadenopathy and possible component of diverticulitis patient was transferred to the ICU because of hypotension , morning of 03/26/2019 the patient did have significant change in his clinical condition and the patient ripped off his IV and leads subsequently did have significant drop in the blood pressure and respiratory distress patient ended up getting intubated on 03/26/2019. On today's evaluation that is 04/02/2019, the patient remains to be afebrile , the patient is hemodynamically stable not on pressor support, the patient is breathing comfortably on room air, the patient denies having any chest pain or shortness of breath did have occasional cough no nausea no vomiting no abdominal pain and no diarrhea Objective - Vital Signs Vital signs: Vital Signs Temp 97.8 F 04/02/19 08:00 Pulse 85 04/02/19 10:30 Resp 22 04/02/19 10:30 BP 98/61 04/02/19 10:30 Pulse Ox 93 L 04/02/19 10:30 Intake & Output 04/01/19 04/02/19 04/02/19 18:59 06:59 18:59 Intake Total 1031.333 578.555 455.778 Output Total 2125 595 565 Balance -1093.667 -16.445 -109.222 Weight 85.3 kg Intake: IV 127 144 44 Pressure bags 0.9 72 69 24 Sodium Chloride 0.9% 1, 55 75 20 000 ml @ 5 mls/hr IV . Q24H [facility] Rx#:[id number] Intake, IV Titration 368.333 34.555 111.778 Amount Cefepime 2 gm In Sodium 100 100 Chloride 0.9% 100 ml @ 200 mls/hr IVPB Q12HR [facility] Rx#:[id number] Furosemide 100 mg In 68.333 Sodium Chloride 0.9% 90 ml @ 5 MG/HR 5 mls/hr IV .Q20H [facility] Rx#:[id number] Magnesium Sulfate-D5w Pmx 200 1 gm In Dextrose/Water 1 100ml.bag @ 100 mls/hr IVPB Q1H [facility] Rx#: [id number] Norepinephrine 32 mg In 34.555 11.778 Sodium Chloride 0.9% 218 ml @ 0.05 MCG/KG/MIN 2. 128 mls/hr IV .Q24H [facility] Rx#:[id number] Oral 536 400 300 Output: Urine 2125 595 565 Other: Voiding Method Indwelling Catheter Indwelling Catheter Indwelling Catheter ABP, PAP, CO, CI - Last Documented Arterial Blood Pressure 93/43 - Exam GENERAL DESCRIPTION: The patient awake alert and in no distress HEENT: [Oral mucosa dry] EYES : [pallor or scleral icterus] RESPIRATORY SYSTEM: [Unlabored breathing decreased breath sound at the base] CARDIA VASCULAR SYSTEM: [S1-S2 regular rate and rhythm no murmur] GI: [Abdominal soft there's no tenderness no organomegaly] EXTREMITIES: [No edema feet] - Labs CBC & Chem 7: 04/02/19 04:00 04/02/19 10:25 Labs: Abnormal Lab Results - Last 24 Hours (Table) 04/01/19 04/01/19 04/02/19 Range/Units 17:14 20:32 04:00 WBC (3.8-10.6) k/uL RBC (4.30-5.90) m/uL Hgb (13.0-17.5) gm/dL Hct (39.0-53.0) % RDW (11.5-15.5) % Lymphocytes # (Manual) (1.0-4.8) k/uL Monocytes # (Manual) (0-1.0) k/uL Carbon Dioxide 31 H (22-30) mmol/L BUN 37 H (9-20) mg/dL POC Glucose (mg/dL) 119 H 118 H (75-99) mg/dL Calcium 8.1 L (8.4-10.2) mg/dL 04/02/19 04/02/19 04/02/19 Range/Units 04:00 06:56 11:48 WBC 49.0 H (3.8-10.6) k/uL RBC 2.95 L (4.30-5.90) m/uL Hgb 8.6 L (13.0-17.5) gm/dL Hct 27.4 L (39.0-53.0) % RDW 18.5 H (11.5-15.5) % Lymphocytes # (Manual) 41.65 H (1.0-4.8) k/uL Monocytes # (Manual) 2.45 H (0-1.0) k/uL Carbon Dioxide (22-30) mmol/L BUN (9-20) mg/dL POC Glucose (mg/dL) 113 H 116 H (75-99) mg/dL Calcium (8.4-10.2) mg/dL Microbiology - Last 24 Hours (Table) 03/27/19 01:10 Blood Culture - Final Blood No Growth after 144 hours Assessment and Plan Assessment: 1-patient was initially admitted hospital with abdominal pain from significant decrease in size of his lymphadenopathy with concern for possible compression of the intestine with component of ischemic colitis versus diverticulitis--adequately treated 2-patient with new fever after the patient did have significant change in his clinical condition with acute vent dependent respiratory failure with a possi ble component of aspiration pneumonitis--- culture has been negative and the patient had been successfully extubated Plan: 1-the patient is currently on cefepime 2 g every 12 hours that'll be continued for a short course, And monitor his clinical course closely Continue supportive care Time with Patient: Less than 30
[2019-04-02] MEDS: ZOLPIDEM 5 MG TAB PO PRN (22:27)
[2019-04-03 05:42] LABS: Calcium 8.4 mg/dL (8.4-10.2); Magnesium 2.2 mg/dL (1.6-2.3); Phosphorus 3.4 mg/dL (2.5-4.5); Potassium 3.6 mmol/L (3.5-5.1)
[2019-04-03] MEDS: INSULIN ASPART (NovoLOG) 100 UNIT/ML VIAL SQ SCH ×4 (06:50→20:25)
[2019-04-03] MEDS: IPRATROPIUM-ALBUTEROL 3 ML NEB INHALATION SCH ×4 (06:52→19:04)
[2019-04-03 07:37] LABS: Anisocytosis Slight; HCT 26.5 % (39.0-53.0); HGB 8.5 gm/dL (13.0-17.5); Hypochromasia Slight; MCH 29.5 pg (25.0-35.0); MCHC 31.9 g/dL (31.0-37.0); MCV 92.3 fL (80.0-100.0); Mean Platelet Volume 8.6; Platelet Count 237 k/uL (150-450); RBC 2.87 m/uL (4.30-5.90); WBC 40.3 k/uL (3.8-10.6)
--- NOTE | 2019-04-03 07:48 | P.PN ---
Subjective Progress Note Date: 04/03/19 Principal diagnosis: Acute non-ST elevation AL This is a pleasant 78-year-old gentleman with a past medical history significant for paroxysmal atrial fibrillation as well as history of CLL who presented to the hospital with progressive abdominal discomfort and was found to have large mass in the abdomen. Subsequently the patient developed acute respiratory distress requiring intubation and mechanical ventilation. He was ruled for acute non-ST patient myocardial infarction which was treated medically. The echocardiogram revealed and impaired LV function with wall motion abnormalities. On follow-up with the patient today, 04/03/2019, is doing better clinically. He is in normal sinus rhythm. The norepinephrine was stopped this morning and he seems to be tolerating that fairly well and hemodynamically stable. He continues to be on amiodarone as well as metoprolol as well as oral anticoagulation with eliquis. The creatinine is stable. The hemoglobin is not up this morning. Also he is on Lasix IV at 40 mg daily. The chest x-ray continues to show finding consistent with right pleural effusion. The repeated echocardiogram yesterday continues to show evidence of cardiomyopathy was EF around 35% with wall motion abnormalities concerning for severe underlying coronary artery disease. Objective - Vital Signs Vital signs: Vital Signs Temp 97.9 F 04/03/19 04:00 Pulse 70 04/03/19 07:03 Resp 24 04/03/19 07:00 BP 102/58 04/03/19 07:00 Pulse Ox 99 04/03/19 07:00 Intake & Output 04/02/19 04/03/19 04/03/19 18:59 06:59 18:59 Intake Total 1007.739 114.311 8 Output Total 1325 605 30 Balance -317.261 -490.689 -22 Weight 82.9 kg Intake: IV 126 98 8 Pressure bags 0.9 66 38 3 Sodium Chloride 0.9% 1, 60 60 5 000 ml @ 5 mls/hr IV . Q24H [facility] Rx#:[id number] Intake, IV Titration 121.739 16.311 Amount Cefepime 2 gm In Sodium 100 Chloride 0.9% 100 ml @ 200 mls/hr IVPB Q12HR [facility] Rx#:[id number] Norepinephrine 32 mg In 21.739 16.311 Sodium Chloride 0.9% 218 ml @ 0.05 MCG/KG/MIN 2. 128 mls/hr IV .Q24H [facility] Rx#:[id number] Oral 760 Output: Urine 1325 605 30 Other: Voiding Method Indwelling Catheter Indwelling Catheter ABP, PAP, CO, CI - Last Documented Arterial Blood Pressure 113/47 - Constitutional General appearance: Present: no acute distress - Respiratory Respiratory: bilateral: diminished - Cardiovascular Rhythm: regular Heart sounds: normal: S1, S2 - Labs CBC & Chem 7: 04/02/19 04:00 04/03/19 04:45 Labs: Abnormal Lab Results - Last 24 Hours (Table) 04/02/19 04/02/19 04/02/19 Range/Units 04:00 11:48 17:46 Lymphocytes # (Manual) 41.65 H (1.0-4.8) k/uL Monocytes # (Manual) 2.45 H (0-1.0) k/uL Carbon Dioxide (22-30) mmol/L BUN (9-20) mg/dL POC Glucose (mg/dL) 116 H 106 H (75-99) mg/dL 04/02/19 04/03/19 Range/Units 20:44 04:45 Lymphocytes # (Manual) (1.0-4.8) k/uL Monocytes # (Manual) (0-1.0) k/uL Carbon Dioxide 32 H (22-30) mmol/L BUN 36 H (9-20) mg/dL POC Glucose (mg/dL) 131 H (75-99) mg/dL Assessment and Plan Assessment: Assessment #1 acute respiratory failure secondary to pneumonia #2 acute non-ST elevation myocardial infarction #3 ischemic cardiomyopathy #4 paroxysmal atrial fibrillation #5 chronic lymphocytic leukemia #6 severe anemia Plan #1 continue the current medical regimen #2 continue the current dose of Lasix IV #3 continue monitor the hemoglobin as well as kidney function #4 the repeated echo continues to show findings consistent was cardiomyopathy was EF around 35% #5 follow-up with the patient
--- NOTE | 2019-04-03 08:10 | XR ---
EXAMINATION TYPE: XR chest 1V portable DATE OF EXAM: 04/03/2019 COMPARISON: 04/02/2019 INDICATION: Short of breath TECHNIQUE: Single frontal view of the chest is obtained. FINDINGS: The heart size is normal. The pulmonary vasculature is normal. Mild infiltrate is in the right lower lobe. Some infiltrate may be silhouetting the left diaphragm. S mall left pleural effusion may be present. Findings are worsening from comparison. A left central venous catheter is present with tip in the proximal right atrium. No pneumothorax is e vident. IMPRESSION: 1. Worsening left lower lobe infiltrate and/or small left pleural effusion. 2. Developing right lower lobe infiltrate. 3. Correlate for pneumonia and atelectasis.
[2019-04-03] MEDS ORDERED: POTASSIUM CHLORIDE ER 20 MEQ TAB.ER PO SCH (09:00)
[2019-04-03] MEDS: METOPROLOL TARTRATE 25 MG TAB PO SCH ×2 (09:19→20:15)
[2019-04-03] MEDS: AMIODARONE 200 MG TAB PO SCH ×2 (09:19→20:15)
[2019-04-03] MEDS: ASPIRIN 81 MG PO SCH (09:19)
[2019-04-03] MEDS: APIXABAN 5 MG TAB PO SCH ×2 (09:19→20:15)
[2019-04-03] MEDS: CEFEPIME 2 GM in SODIUM CHLORIDE 0.9% 100 ML IVPB SCH ×2 (09:19→20:15)
[2019-04-03] MEDS: SODIUM CHLORIDE 0.9% 1,000 ML IV SCH (09:21)
[2019-04-03] MEDS: FUROSEMIDE 10 MG/ML 4 ML VIAL IV SCH (10:53)
--- NOTE | 2019-04-03 11:09 | P.PN ---
Subjective Progress Note Date: 04/03/19 On today's evaluation of 03/27/2019 I'm seeing this patient for a follow-up. The patient is currently intubated on a mechanical ventilator. The patient is known history of CLL receiving FOLFOX treatment on outpatient basis.. The patient came in for increased abdominal pain and subsequently the patient went into respiratory failure and hemodynamic collapse. The patient suffered an acute non-ST segment elevation myocardial infarction and troponin peaked at 31. Cardiology is on the case This morning, the patient was sedated with propofol at 50 g per KG per minute. The patient is intubated on a mechanical ventilator. Earlier this morning the patient was on a volume cycle mode of ventilation with a tidal volume of 600 with a rate of 20, FiO2 of 40% and a PEEP of 5. The patient is intubated with a #8 ET tube. The blood gases from this morning showed a pH of 7.39 with a pCO2 of 28 and pO2 of 147. The patient was still having higher tidal volumes and is minute ventilation was quite elevated. Based on all this, I increased his tidal volume of 2 600 which made the patient much more comfortable and sickness with a mechanical ventilator. The patient is afebrile. The patient is hypotensive and earlier this morning he was on norepinephrine infusion running at a rate of 21 mcg/m. His urine output is in order of 60 mL an hour. The patient is on IV fluids at 0.9 at the rate of 100 mL an hour. The patient is in atrial fibrillation. He is on an amiodarone drip at 0.5 g per minute as a maintenance. He has a left IJ triple-lumen catheter and the CVP is in the range of 8 and 9 mmHg. The patient had a chest x-ray this morning that showed bilateral basilar infiltrates and bilateral pleural effusions are small. The patient also had some mild cardiomegaly. ET tube was lying low with a tip being around 1. 6 cm above the pavel. The patient remains nothing by mouth. He remains well covered with a combination of cefepime and Flagyl and vancomycin as broad-spectrum antibiotic coverage. Urine culture from 2018 has been negative. Sputum culture from 03/26/2019 is negative and the blood culture from 516 has been negative and the repeat blood culture was sent on 03/27/2019. Hematologic profile was quite abnormal and then consistent with the patient's history of CLL. Hemoglobin is at 7.3 with a platelet count of 149 and a white cell count of 82.3. Anything else no abdominal distention. OG tube is in place and there is no significant drainage from the orogastric tube. Echocardiogram showed segmental wall motion abnormalities along with an ejection fraction of 35-40%. On 03/28/2019 I'm seeing this patient for a follow-up. He was intubated sedated on a mechanical ventilator. The patient is currently on assist control mode of ventilation with a tidal volume of 6000 and FiO2 of 40% with a PEEP of 5 and the rate of 20. Blood gases from today showed a pH of 7.38 with a pCO2 of 27 and pO2 of 159. His chest x-ray still showing bilateral pulmonary infiltrates and cardiomegaly and ET tube is in good location. The patient is producing good urine output and the fluid balance over the past 24 hours has been +3.8 L. He has converted back into normal sinus rhythm. He is on low-dose norepinephrine infusion which is running at 4-5 g per minute. Antibiotic coverage includes a combination of cefepime and vancomycin. He is also on Flagyl. He had a low- grade temperature yesterday with a T-max of 100.2 and currently he is afebrile. He remains nothing by mouth. No significant output from his orogastric tube. No significant abdominal distention. Bowel sounds are hypoactive, nearly absent yet there is no abdominal distention. His echo cardiac damage showed an ejection fraction of 35-40% along with segmental wall motion abnormalities. He is receiving IV fluids at the rate of 100 mL an hour. Discussed the case with cardiology. Discussed the case with oncology. On 03/29/2019 the patient remains intubated on a mechanical ventilator. The patient is sedated with propofol. He is calm and comfortable. Propofol is running at 40 mics. Remains on a mechanical ventilator. Essentially on the same vent setting. Tidal volumes at 6000 with an FiO2 of 40% and PEEP of 5. Blood gas shows further improvement in oxygenation. The pH is at 7.46 and a pCO2 of 28 and pO2 of 163. The patient is a component of acute respiratory alkalosis. Chest x-ray still showing better pulmonary infiltrates and effusion lung bases bilaterally consistent with CHF. The patient is afebrile. Hemodynamically, the patient is on few echograms of norepinephrine infusion for blood pressure support. The patient is producing adequate amount of urine outpu t. The patient was started on IV Lasix. The patient is eating push towards a negative fluid balance over the next 24 hours. The cardiac rhythm is back to atrial fibrillation. The patient was seen again by cardiology. The rate is controlled for now and the patient is on 400 mg of amiodarone by mouth twice a day and metoprolol 12.5 mg by mouth twice a day and Eliquis for long-term anticoagulation was also started. We are hoping to achieve a negative fluid balance over the next 24 hours. Meanwhile, I'm willing to give this patient a sedation holiday and assess his underlying neuro status while being off sedation. He is afebrile. All of the cultures of negative. He is on a broad-spectrum antibiotic coverage utilizing a combination of cefepime and vancomycin. He is also on Flagyl. The patient was started on enteral feeding for nutritional support at the rate of 20 mL an hour of vital high protein. He was able to tolerate that without any significant residual pain no abdominal d istention pain no bowel movements yet. We are going to advance the tube feeds and hold the TPN for now and we're going to continue the current TPN bag and stop it following that as the patient seems to be tolerating tube feeds for the time being. Family is at the bedside. The condition was extended to them at length. IV fluids are currently at KVO. On 03/30/2019 I'm seeing this patient for follow-up. Still intubated on a mechanical ventilator. He was still on the same mechanical ventilator settings with the assist control mode at a tidal volume of 500 rate of 20, and FiO2 of 40% and a PEEP of 5 and a blood gas showed a pH of 7.47 with a pCO2 of 32 and pO2 of 147. Chest x-ray showed stable findings of breath the pleural effusion. Nevertheless, the patient was achieving a good negative fluid balance. He was quite successful mechanical ventilator. I give him a sedation holiday. Discontinue the propofol and following that the patient woke up initially was very drowsy and is the day went by, he became progressively more awake and alert. Was found to more awake, the patient had a weaning parameters that showed a tidal volumes ranging between 450 and 550 with a vital capacity of 951 and a minute ventilation of 13 with a rapid shallow breathing index of 50. Accordingly, the patient was given a spontaneous breathing trial with a pressure support of 5 and a PEEP of 5 and following that he became uncomfortable, restless, tachypneic and he went into atrial fibrillation. The child was called and the patient was placed back on low-dose sedation with propofol time microgra ms per KG per minute. No fever. No chills. The patient is diuresing and the patient is achieving a negative fluid balance. He is receiving his tube feeds and is tolerating this without any major difficulties. He remains on a combination of cefepime and vancomycin as broad-spectrum antibiotic coverage. He remains on diuretics and the patient is receiving IV Lasix 40 mg every 12 hours. We'll hope to achieve a negative fluid balance over the next 24 hours. Blood pressure is being supported with a low dose of norepinephrine infusion. On 03/31/2019, the patient was taken off sedation and he did very well to the point where he stayed awake and alert and he was able to follow commands without any major difficulties. Weaning parameters were checked and the numbers looked adequate. The patient was given a spontaneous breathing trial and following that the patient was extubated to a BiPAP. Currently is on a BiPAP of 10/5 cm of water. Note that the blood gas post spontaneous breathing trial showed a pH of 7.5 with a pCO2 of 35 and pO2 of 148 and this was on a CPAP trial with a pres sure support of 5 and a PEEP of 5 and FiO2 of 40%. Chest x-ray is showing some improvement in the volume status. There is still bilateral pleural effusion. The patient was started on a Lasix drip yesterday at a rate of 5 mg an hour. He has been producing excellent urine output. Her net fluid balance of been -2.2 L for now and will going to continue the Lasix to 40 another 24 hours. Edema is approving all 4 extremities. The patient is in a sinus rhythm. The patient is on 2.5 g per minute of norepinephrine infusion. Afebrile. Still on same antibiotic coverage. White cell count is at 85. Hemoglobin was at 8.9. Renal function stable. He was tolerating his tube feeds earlier and tube feeds were discontinued as the patient was extubated to BiPAP. On 04/01/2019 the patient remains extubated doing well awake and alert and interactive. Following commands and answering questions. Swallow evaluation was done and the patient passed and the patient is provided a diet. He was on Lasix drip and he was urinating adequately and the chest from today shows a moderate-sized bilateral pleural effusion. No cough. No sputum production. No fever. The patient is in normal sinus rhythm. He is on few mics of norepinephrine infusion for blood pressure control. No other significant events overnight. His white cell count is at 76. Hemoglobin is at 9.1. Renal function stable with a creatinine of 1.0. The patient is off vancomycin. He is off Flagyl. He is only on IV cefepime for now. On 04/02/2019, patient is doing extremely well. Awake and alert. No respiratory distress. Chest x-ray shows a small left-sided pleural effusion and small right-sided pleural effusion is also present. He is on 2 L of oxygen by nasal cannula. He is on IV cefepime. He is on IV Lasix. No fever. No chills. Tolerating his diet. He is on 2 g per minute of norepinephrine infusion which should be weaned off problems today. Meanwhile, the patient is doing extremely well as is recovering from his acute respiratory failure. On 04/03/2019, the patient is on room air oxygen. The chest x-ray from today showing small to moderate-sized bilateral pleural effusion unchanged compared to yesterday. He is still requiring pressors on a minimal dose and earlier this morning the leaflet infusion was discontinued. The patient's is currently receiving daily Lasix dose at a dose of 40 mg once a day. His cardiac rhythm is sinus. He is on oral amiodarone. He is tolerating his diet. He had a Bowel movement. He is using incentive spirometer. Gradually getting stronger. I think is reasonable to assume that the patient can be transferred to a medical floor. Objective - Vital Signs Vital signs: Vital Signs Temp 97.8 F 04/03/19 08:00 Pulse 86 04/03/19 10:40 Resp 16 04/03/19 10:00 BP 88/53 04/03/19 10:00 Pulse Ox 94 L 04/03/19 10:00 Intake & Output 04/02/19 04/03/19 04/03/19 18:59 06:59 18:59 Intake Total 1007.739 114.311 492.284 Output Total 1325 605 205 Balance -317.261 -490.689 287.284 Weight 82.9 kg Intake: IV 126 98 32 Pressure bags 0.9 66 38 12 Sodium Chloride 0.9% 1, 60 60 20 000 ml @ 5 mls/hr IV . Q24H [facility] Rx#:[id number] Intake, IV Titration 121.739 16.311 100.284 Amount Cefepime 2 gm In Sodium 100 100 Chloride 0.9% 100 ml @ 200 mls/hr IVPB Q12HR [facility] Rx#:[id number] Norepinephrine 32 mg In 21.739 16.311 0.284 Sodium Chloride 0.9% 218 ml @ 0.05 MCG/KG/MIN 2. 128 mls/hr IV .Q24H [facility] Rx#:[id number] Oral 760 360 Output: Urine 1325 605 205 Other: Voiding Method Indwelling Catheter Indwelling Catheter Indwelling Catheter ABP, PAP, CO, CI - Last Documented Arterial Blood Pressure 98/39 - Exam Gen. appearance, comfortable on room air oxygen with a pulse ox of 94% Head exam was generally normal. There was no scleral icterus or corneal arcus. Mucous membranes were moist. Neck was supple and without jugular venous distension, thyromegaly, or carotid bruits. Carotids were easily palpable bilaterally. There was no adenopathy. The patient has an orogastric and orotracheal tube are both of them are in place and the patient has a left IJ triple-lumen catheter. Lungs sounds are diminished bilaterally. Breath sounds are otherwise equal and symmetrical. There is dullness to percussion also consistent with pleural effusion Heart sounds are irregular S1-S2 consistent with atrial fibrillation. No sign ificant murmurs appreciated. No right ventricular heave or thrill. Abdominal exam revealed normal bowel sounds. The abdomen was soft, non-tender, and without masses, organomegaly, or appreciable enlargement of the abdominal aorta. Extremities are warm. There is equal and symmetrical pulses in lower extremities bilaterally with +1 pulses. No cyanosis. No clubbing. There is improving edema in lower extremities bilaterally. Neurologically the patient is awake and alert and the patient is following simple commands. Is moving all 4 extremities without any limitation. Examination of the skin revealed no evidence of significant rashes, suspicious appearing nevi or other concerning lesions. - Labs CBC & Chem 7: 04/03/19 07:00 04/03/19 04:45 Labs: Abnormal Lab Results - Last 24 Hours (Table) 04/02/19 04/02/19 04/02/19 Range/Units 11:48 17:46 20:44 WBC (3.8-10.6) k/uL RBC (4.30-5.90) m/uL Hgb (13.0-17.5) gm/dL Hct (39.0-53.0) % RDW (11.5-15.5) % Carbon Dioxide (22-30) mmol/L BUN (9-20) mg/dL POC Glucose (mg/dL) 116 H 106 H 131 H (75-99) mg/dL 04/03/19 04/03/19 Range/Units 04:45 07:00 WBC 40.3 H (3.8-10.6) k/uL RBC 2.87 L (4.30-5.90) m/uL Hgb 8.5 L (13.0-17.5) gm/dL Hct 26.5 L (39.0-53.0) % RDW 18.0 H (11.5-15.5) % Carbon Dioxide 32 H (22-30) mmol/L BUN 36 H (9-20) mg/dL POC Glucose (mg/dL) (75-99) mg/dL Assessment and Plan Plan: 1 shock with profound hypotension currently on pressors. Clinically improved. The patient was taken off the pressors earlier this morning 2 acute hypoxic respiratory failure , improved and currently the patient is extubated on room air oxygen. His chest x-ray showing small to moderate-sized bilateral pleural effusion. The effusion is a much improved compared to yesterday. The patient is receiving daily Lasix doses. 3 acute non-ST segment elevation myocardial infarction, recovered 4 CHF ischemic in nature with ejection fraction of 35% and segmental wall motion abnormalities. 5 paroxysmal atrial fibrillation, current rhythm is sinus. The patient is controlled rate and he is on long-term antibiotic ventilation with Eliquis. 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 7 hematologic abnormalities with an abnormal hematologic profile consistent with CLL. The patient has lymphocytosis, thrombocytopenia and anemia. The patient's counts have been stable. The white cell count remains elevated essentially lymphocytosis in addition to a stable hemoglobin is stable platelet count. 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 Discontinue pressors. Monitor blood pressure. He is on room air oxygen. Advance diet. Advance activity. Transferred to oncology once he is off pressors for at least 4-6 hours.
[2019-04-03 11:33] LABS: Eosinophils # (M) 0.81 k/uL (0-0.7); Lymphocytes # (M) 31.03 k/uL (1.0-4.8); Monocytes # (M) 1.61 k/uL (0-1.0); Neutrophils # (M) 6.85 k/uL (1.3-7.7); Neutrophils % (M) 17 %; Nucleated Red Blood Cells 0 /100 WBC (0-0); Poikilocytosis (M) Present; Total Cells Counted 100
[2019-04-03 12:05] LABS: Glucose,Whole Blood 127 mg/dL (75-99)
--- NOTE | 2019-04-03 12:45 | P.PN ---
Subjective Progress Note Date: 04/03/19 Patient seen and examined in follow-up doing well reports that he's eating and tolerating his diet well, would like to get up and ambulate, reports that he's been up sitting in the chair he yesterday and earlier today. Continues to work with his incentive spirometry getting stronger, IV pressor was discontinued early this morning. Leukocytosis improving daily, continued on cefepime. No acute events overnight Objective - Vital Signs Vital signs: Vital Signs Temp 97.8 F 04/03/19 08:00 Pulse 86 04/03/19 10:40 Resp 16 04/03/19 10:00 BP 88/53 04/03/19 10:00 Pulse Ox 94 L 04/03/19 10:00 Intake & Output 04/02/19 04/03/19 04/03/19 18:59 06:59 18:59 Intake Total 1007.739 114.311 508.284 Output Total 1325 605 600 Balance -317.261 -490.689 -91.716 Weight 82.9 kg Intake: IV 126 98 48 Pressure bags 0.9 66 38 18 Sodium Chloride 0.9% 1, 60 60 30 000 ml @ 5 mls/hr IV . Q24H [facility] Rx#:[id number] Intake, IV Titration 121.739 16.311 100.284 Amount Cefepime 2 gm In Sodium 100 100 Chloride 0.9% 100 ml @ 200 mls/hr IVPB Q12HR [facility] Rx#:[id number] Norepinephrine 32 mg In 21.739 16.311 0.284 Sodium Chloride 0.9% 218 ml @ 0.05 MCG/KG/MIN 2. 128 mls/hr IV .Q24H [facility] Rx#:[id number] Oral 760 360 Output: Urine 1325 605 600 Other: Voiding Method Indwelling Catheter Indwelling Catheter Indwelling Catheter ABP, PAP, CO, CI - Last Documented Arterial Blood Pressure 98/39 - Exam Constitutional: No acute distress, conversant, pleasant Eyes: Anicteric sclerae, moist conjunctiva, no lid-lag, PERRLA ENMT: NC/AT,Oropharynx clear, no erythema, exudates Neck:Supple, FROM, no masses, or JVD, No carotid bruits; No thyromegaly, left IJ in place Lungs: Diminished in the bases bilaterally with bibasilar crackles, no respiratory distress on 2 L nasal cannula Cardiovascular: Heart regular in rate and rhythm, No murmurs, gallops, or rubs no peripheral edema Abdominal: Soft Nontender, nom distended, no guarding, no rebound or rigidity, Normoactive bowel sounds No hepatomegaly, No splenomegaly, No palpable mass No abdominal wall hernia noted Skin: Normal temperature, tone, texture, turgor, No induration No subcutaneous nodules, No rash, lesions, No ulcers Extremities:No digital cyanosis No clubbing, Pedal pulses intact and symmetrical Radial pulses intact and symmetrical Normal gait and station, No calf tenderness Neuro: Awake and following simple commands squeezing fingers pupils are reactive to light, no seizure activity - Labs CBC & Chem 7: 04/03/19 07:00 04/03/19 04:45 Labs: Abnormal Lab Results - Last 24 Hours (Table) 04/02/19 04/02/19 04/03/19 Range/Units 17:46 20:44 04:45 WBC (3.8-10.6) k/uL RBC (4.30-5.90) m/uL Hgb (13.0-17.5) gm/dL Hct (39.0-53.0) % RDW (11.5-15.5) % Lymphocytes # (Manual) (1.0-4.8) k/uL Monocytes # (Manual) (0-1.0) k/uL Eosinophils # (Manual) (0-0.7) k/uL Carbon Dioxide 32 H (22-30) mmol/L BUN 36 H (9-20) mg/dL POC Glucose (mg/dL) 106 H 131 H (75-99) mg/dL 04/03/19 04/03/19 Range/Units 07:00 11:54 WBC 40.3 H (3.8-10.6) k/uL RBC 2.87 L (4.30-5.90) m/uL Hgb 8.5 L (13.0-17.5) gm/dL Hct 26.5 L (39.0-53.0) % RDW 18.0 H (11.5-15.5) % Lymphocytes # (Manual) 31.03 H (1.0-4.8) k/uL Monocytes # (Manual) 1.61 H (0-1.0) k/uL Eosinophils # (Manual) 0.81 H (0-0.7) k/uL Carbon Dioxide (22-30) mmol/L BUN (9-20) mg/dL POC Glucose (mg/dL) 127 H (75-99) mg/dL Assessment and Plan (1) Shock Narrative/Plan: * Multifactorial due to cardiogenic secondary to non-STEMI with ICM superimposed on septic shock due PNA and intrabdominal pathology * Patient continued weaned off IV pressors * Continued on broad-spectrum antibiotics with cefepime with infectious disease following Current Visit: Yes Status: Resolved Code(s): R57.9 - SHOCK, UNSPECIFIED SNOMED Code(s): 61563673 (2) Acute respiratory failure with hypoxia Narrative/Plan: * Secondary to septic shock with superimposed by basilar pneumonia with pleural effusions small to moderate in size * Patient recently extubated 03/31 continues to wean oxygen currently down to 2 L via nasal cannula * chest x-ray yesterday showing stable basilar atelectasis and infiltrates with bilateral pleural effusions (consider chest ultrasound to evaluate for thoracentesis), repeat chest x-ray pending * Continue scheduled and when necessary DuoNeb bronchodilator breathing treatments Current Visit: Yes Status: Acute Priority: High Code(s): J96.01 - ACUTE RESPIRATORY FAILURE WITH HYPOXIA SNOMED Code(s): 43245259 (3) Non-STEMI (non-ST elevated myocardial infarction) Narrative/Plan: * Initial troponin less than 0.012. EKG ordered yesterday for concerns of t achycardia, with ST depression, troponin reordered to rule out ACS. * Repeat troponin 3.650, 8.210, 20.4, 31. Possibly related to true cardiac event from severe anemia and hypotension. * Echocardiogram shows EF 35-40% with hypokinetic wall motion. * Continue Telemetry monitoring. Continue aspirin. * As per Dr. Rajput, not candidate for aggressive cardiac workup. Follow cardiology recommendations. No heparin due to severe anemia. Current Visit: Yes Status: Acute Code(s): I21.4 - NON-ST ELEVATION (NSTEMI) MYOCARDIAL INFARCTION SNOMED Code(s): 85474311 (4) Ischemic cardiomyopathy Narrative/Plan: * Secondary to non STEMI * Initial Echocardiogram revealed impaired LV function EF of 35-40% with wall motion abnormalities, repeat echocardiogram continues to show ejection fraction of 35% * Continue metoprolol continue aspirin monitor urine output and Lsix ggt discontinued but continued on the IV Lasix * Cardiology following Current Visit: Yes Status: Acute Code(s): I25.5 - ISCHEMIC CARDIOMYOPATHY SNOMED Code(s): 213506999 (5) Paroxysmal atrial fibrillation Narrative/Plan: * Currently rate controlled And currently in sinus rhythm * Continue metoprolol and Amiodarone PO * Continue anticoagulation with eliquis Current Visit: Yes Status: Acute Code(s): I48.0 - PAROXYSMAL ATRIAL FIBRILLATION SNOMED Code(s): 045226395 (6) Leukocytosis Narrative/Plan: * CLL superimposed on sepsis concern for progression versus reactive inflammation * Appreciate hematology recommendations Current Visit: Yes Status: Acute Priority: Medium Code(s): D72.829 - ELEVATED WHITE BLOOD CELL COUNT, UNSPECIFIED SNOMED Code(s): 298463442 (7) CLL (chronic lymphocytic leukemia) Narrative/Plan: * Profound lymphocytosis thrombocytopenia and anemia consistent with underlying CLL * Noted significant enlargement of intra-abdominal lymphadenopathy causing mass effect and abdominal structures including the bowel and kidneys Current Visit: No Status: Chronic Priority: High Code(s): C91.10 - CHRONIC LYMPHOCYTIC LEUK OF B-CELL TYPE NOT ACHIEVE REMIS SNOMED Code(s): 79459695 (8) Electrolyte depletion Narrative/Plan: * Continue potassium and mag replacement protocols Current Visit: Yes Status: Resolved Code(s): E87.8 - OTH DISORDERS OF ELECTROLYTE AND FLUID BALANCE, NEC SNOMED Code(s): 09255538 Plan: Disposition * Patient doing well continue current course * Patient stable for transfer to the medical floor
[2019-04-03 15:15] VITALS: BMI 27.8
[2019-04-03] MEDS: NOREPINEPHRINE 32 MG in SODIUM CHLORIDE 0.9% 218 ML IV SCH (15:56)
[2019-04-03 17:05] LABS: Glucose,Whole Blood 107 mg/dL (75-99)
[2019-04-03] MEDS: ATORVASTATIN 20 MG TAB PO SCH (20:15)
[2019-04-03 20:34] LABS: Glucose,Whole Blood 107 mg/dL (75-99)
--- NOTE | 2019-04-03 21:55 | P.PN ---
Subjective Progress Note Date: 04/03/19 Principal diagnosis: pneumonia Patient initially admitted hospital with abdominal pain in this patient did have significant increase in size of abdominal lymphadenopathy and possible component of diverticulitis patient was transferred to the ICU because of hypotension , morning of 03/26/2019 the patient did have significant change in his clinical condition and the patient ripped off his IV and leads subsequently did have significant drop in the blood pressure and respiratory distress patient ended up getting intubated on 03/26/2019. On today's evaluation that is 04/03/2019, the patient is afebrile , the patient remains to be hemodynamically stable, the patient is breathing comfortably on room air, the patient denies having any chest pain or shortness of breath, the patient did have occasional cough but not bringing up any sputum the patient denies nausea no vomiting no abdominal pain and no diarrhea Objective - Vital Signs Vital signs: Vital Signs Temp 97.5 F L 04/03/19 12:00 Pulse 81 04/03/19 14:00 Resp 15 04/03/19 14:00 BP 93/61 04/03/19 14:00 Pulse Ox 94 L 04/03/19 14:00 Intake & Output 04/02/19 04/03/19 04/03/19 18:59 06:59 18:59 Intake Total 1007.739 114.311 884.284 Output Total 4267 868 2434 Balance -317.261 -490.689 -240.716 Weight 82.9 kg Intake: IV 126 98 64 Pressure bags 0.9 66 38 24 Sodium Chloride 0.9% 1, 60 60 40 000 ml @ 5 mls/hr IV . Q24H [facility] Rx#:[id number] Intake, IV Titration 121.739 16.311 100.284 Amount Cefepime 2 gm In Sodium 100 100 Chloride 0.9% 100 ml @ 200 mls/hr IVPB Q12HR [facility] Rx#:[id number] Norepinephrine 32 mg In 21.739 16.311 0.284 Sodium Chloride 0.9% 218 ml @ 0.05 MCG/KG/MIN 2. 128 mls/hr IV .Q24H [facility] Rx#:[id number] Oral 760 720 Output: Urine 3406 511 7133 Other: Voiding Method Indwelling Catheter Indwelling Catheter Indwelling Catheter ABP, PAP, CO, CI - Last Documented Arterial Blood Pressure 112/48 - Exam GENERAL DESCRIPTION: The patient awake alert and in no distress HEENT: [Oral mucosa dry] EYES : [pallor or scleral icterus] RESPIRATORY SYSTEM: [Unlabored breathing decreased breath sound at the base] CARDIA VASCULAR SYSTEM: [S1-S2 regular rate and rhythm no murmur] GI: [Abdominal soft there's no tenderness no organomegaly] EXTREMITIES: [No edema feet] - Labs CBC & Chem 7: 04/03/19 07:00 04/03/19 04:45 Labs: Abnormal Lab Results - Last 24 Hours (Table) 04/02/19 04/02/19 04/03/19 Range/Units 17:46 20:44 04:45 WBC (3.8-10.6) k/uL RBC (4.30-5.90) m/uL Hgb (13.0-17.5) gm/dL Hct (39.0-53.0) % RDW (11.5-15.5) % Lymphocytes # (Manual) (1.0-4.8) k/uL Monocytes # (Manual) (0-1.0) k/uL Eosinophils # (Manual) (0-0.7) k/uL Carbon Dioxide 32 H (22-30) mmol/L BUN 36 H (9-20) mg/dL POC Glucose (mg/dL) 106 H 131 H (75-99) mg/dL 04/03/19 04/03/19 Range/Units 07:00 11:54 WBC 40.3 H (3.8-10.6) k/uL RBC 2.87 L (4.30-5.90) m/uL Hgb 8.5 L (13.0-17.5) gm/dL Hct 26.5 L (39.0-53.0) % RDW 18.0 H (11.5-15.5) % Lymphocytes # (Manual) 31.03 H (1.0-4.8) k/uL Monocytes # (Manual) 1.61 H (0-1.0) k/uL Eosinophils # (Manual) 0.81 H (0-0.7) k/uL Carbon Dioxide (22-30) mmol/L BUN (9-20) mg/dL POC Glucose (mg/dL) 127 H (75-99) mg/dL Assessment and Plan Assessment: 1-patient admitted to the hospital with abdominal pain with concern for abdominal ischemia from a large intra-abdominal masses/lymphadenopathy adequately treated, now with evidence of worsening finding on the chest x-ray possible atelectasis and a question of pneumonia Plan: 1-the patient has been advised incentive spirometry every hour on the hour 2-we'll try to obtain sputum for Gram stain and culture 3-cefepime 2 g every 12hrs Time with Patient: Less than 30
[2019-04-04 08:12] LABS: Glucose,Whole Blood 104 mg/dL (75-99)
[2019-04-04] MEDS: FUROSEMIDE 10 MG/ML 4 ML VIAL IV SCH (08:44)
[2019-04-04] MEDS: METOPROLOL TARTRATE 25 MG TAB PO SCH ×2 (08:44→20:13)
[2019-04-04] MEDS: AMIODARONE 200 MG TAB PO SCH ×2 (08:44→20:13)
[2019-04-04] MEDS: ASPIRIN 81 MG PO SCH (08:44)
[2019-04-04] MEDS: APIXABAN 5 MG TAB PO SCH ×2 (08:44→20:13)
[2019-04-04] MEDS: CEFEPIME 2 GM in SODIUM CHLORIDE 0.9% 100 ML IVPB SCH ×2 (08:45→20:14)
[2019-04-04] MEDS: IPRATROPIUM-ALBUTEROL 3 ML NEB INHALATION SCH ×4 (08:46→19:30)
[2019-04-04] MEDS: INSULIN ASPART (NovoLOG) 100 UNIT/ML VIAL SQ SCH ×4 (08:46→20:15)
[2019-04-04 08:52] LABS: Calcium 8.4 mg/dL (8.4-10.2); Magnesium 2.2 mg/dL (1.6-2.3); Phosphorus 3.1 mg/dL (2.5-4.5); Potassium 3.9 mmol/L (3.5-5.1)
--- NOTE | 2019-04-04 11:33 | P.PN ---
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 He follows in the office with Dr. Galeano. Catheterization in 1997 revealed a 50% lesion in the mid LAD, 100% occlusion of the diagonal branch and 80% ostial diag #2 lesion. He is seen and examined on the medical floor. He is resting comfortably in bed in no acute distress. He denies any significant shortness of breath. He also denies chest pain, dizziness or palpitations. Overall he states he feels well however he is extremely weak. Echocardiogram obtained over the weekend reveals impaired LV systolic function with ejection fraction 35% with wall motion abnormalities concerning for severe underlying coronary artery disease. Laboratory data reviewed, sodium 137, potassium 3.9, creatinine 0.93, magnesium 2.2. Blood pressure 106/66 heart rate 88 afebrile maintaining oxygen saturation on room air. Currently maintained on amiodarone 400 mg twice a day, Eliquis 5 mg twice a day, aspirin 81 mg twice a day, atorvastatin 20 mg daily, Lasix 40 mg IV daily and Lopressor 25 mg twice a day. GENERAL: Well-appearing, well-nourished and in no acute distress. NECK: Supple without JVD or thyromegaly. LUNGS: Breath sounds clear to auscultation bilaterally. Respiration equal and unlabored. No wheezes, rales or rhonchi. Diminished bilaterally. HEART: Regular rate and rhythm with systolic ejection murmur at the base, no rubs or gallops. S1 and S2 heard. EXTREMITIES: Normal range of motion, no edema. No clubbing or cyanosis. Periphe ral pulses intact. ASSESSMENT Acute respiratory failure secondary to sepsis and shock requiring mechanical ventilation and pressors. Acute xel-XI-bnxnbuvl myocardial infarction Ischemic cardiomyopathy Paroxysmal atrial fibrillation on extermination inspector anti-coagulation Severe anemia, improved. Leukocytosis Aortic stenosis, mild. Mean gradient 16 mmHg PLAN Transition to oral diuretics. Not currently on MARIELLE or ARB due to profound hyotension requiring pressors. Blood pressures still borderline. Will consider adding tomorrow if he can tolerate or as an outpatient. Continue amiodarone 400 mg BID, decrease to 200 mg BID tomorrow. Taper again in 1 week to 200 mg daily. We will continue to follow and make recommendations accordingly. Nurse Practitioner note has been reviewed, I agree with a documented findings and plan of care. Patient was seen and examined. Objective - Vital Signs Vital signs: Vital Signs Temp 97.5 F L 04/04/19 07:35 Pulse 80 04/04/19 08:59 Resp 16 04/04/19 07:35 BP 106/66 04/04/19 07:35 Pulse Ox 93 L 04/04/19 07:35 Intake & Output 04/03/19 04/04/19 04/04/19 18:59 06:59 18:59 Intake Total 9273.257 5747 Output Total 1350 975 350 Balance -209.716 109 -350 Weight 82.9 kg 62.5 kg Intake: IV 80 24 Pressure bags 0.9 30 9 Sodium Chloride 0.9% 1, 50 15 000 ml @ 5 mls/hr IV . Q24H [facility] Rx#:[id number] Intake, IV Titration 100.284 Amount Cefepime 2 gm In Sodium 100 Chloride 0.9% 100 ml @ 200 mls/hr IVPB Q12HR [facility] Rx#:[id number] Norepinephrine 32 mg In 0.284 Sodium Chloride 0.9% 218 ml @ 0.05 MCG/KG/MIN 2. 128 mls/hr IV .Q24H [facility] Rx#:[id number] Oral 960 1060 Output: Urine 1350 975 350 Straight 400 Other: Voiding Method Indwelling Catheter Urinal # Voids 1 ABP, PAP, CO, CI - Last Documented Arterial Blood Pressure 114/46 - Labs CBC & Chem 7: 04/03/19 07:00 04/04/19 07:51 Labs: Abnormal Lab Results - Last 24 Hours (Table) 04/03/19 04/03/19 04/03/19 Range/Units 07:00 11:54 16:53 Lymphocytes # (Manual) 31.03 H (1.0-4.8) k/uL Monocytes # (Manual) 1.61 H (0-1.0) k/uL Eosinophils # (Manual) 0.81 H (0-0.7) k/uL BUN (9-20) mg/dL POC Glucose (mg/dL) 127 H 107 H (75-99) mg/dL 04/03/19 04/04/19 04/04/19 Range/Units 20:22 07:51 08:01 Lymphocytes # (Manual) (1.0-4.8) k/uL Monocytes # (Manual) (0-1.0) k/uL Eosinophils # (Manual) (0-0.7) k/uL BUN 35 H (9-20) mg/dL POC Glucose (mg/dL) 107 H 104 H (75-99) mg/dL
[2019-04-04 11:44] LABS: Glucose,Whole Blood 125 mg/dL (75-99)
--- NOTE | 2019-04-04 12:45 | P.PN ---
Subjective Progress Note Date: 04/04/19 Principal diagnosis: shock with profound hypotension, resolved acute hypoxic respiratory failure, requiring intubation and placement on mechanical ventilation, resolved On today's evaluation of 03/27/2019 I'm seeing this patient for a follow-up. The patient is currently intubated on a mechanical ventilator. The patient is known history of CLL receiving FOLFOX treatment on outpatient basis.. The patient came in for increased abdominal pain and subsequently the patient went into respiratory failure and hemodynamic collapse. The patient suffered an acute non-ST segment elevation myocardial infarction and troponin peaked at 31. Cardiology is on the case This morning, the patient was sedated with propofol at 50 g per KG per minute. The patient is intubated on a mechanical ventilator. Earlier this morning the patient was on a volume cycle mode of ventilation with a tidal volume of 600 with a rate of 20, FiO2 of 40% and a PEEP of 5. The patient is intubated with a #8 ET tube. The blood gases from this morning showed a pH of 7.39 with a pCO2 of 28 and pO2 of 147. The patient was still having higher tidal volumes and is minute ventilation was quite elevated. Based on all this, I increased his tidal volume of 2 600 which made the patient much more comfortable and sickness with a mechanical ventilator. The patient is afebrile. The patient is hypotensive and earlier this morning he was on norepinephrine infusion running at a rate of 21 mcg/m. His urine output is in order of 60 mL an hour. The patient is on IV fluids at 0.9 at the rate of 100 mL an hour. The patient is in atrial fibrillation. He is on an amiodarone drip at 0.5 g per minute as a maintenance. He has a left IJ triple-lumen catheter and the CVP is in the range of 8 and 9 mmHg. The patient had a chest x-ray this morning that showed bilateral basilar infiltrates and bilateral pleural effusions are small. The patient also had some mild cardiomegaly. ET tube was lying low with a tip being around 1. 6 cm above the pavel. The patient remains nothing by mouth. He remains well covered with a combination of cefepime and Flagyl and vancomycin as broad-spectrum antibiotic coverage. Urine culture from 2018 has been negative. Sputum culture from 03/26/2019 is negative and the blood culture from 516 has been negative and the repeat blood culture was sent on 03/27/2019. Hematologic profile was quite abnormal and then consistent with the patient's history of CLL. Hemoglobin is at 7.3 with a platelet count of 149 and a white cell count of 82.3. Anything else no abdominal distention. OG tube is in place and there is no significant drainage from the orogastric tube. Echocardiogram showed segmental wall motion abnormalities along with an ejection fraction of 35-40%. On 03/28/2019 I'm seeing this patient for a follow-up. He was intubated sedated on a mechanical ventilator. The patient is currently on assist control mode of ventilation with a tidal volume of 6000 and FiO2 of 40% with a PEEP of 5 and the rate of 20. Blood gases from today showed a pH of 7.38 with a pCO2 of 27 and pO2 of 159. His chest x-ray still showing bilateral pulmonary infiltrates and cardiomegaly and ET tube is in good location. The patient is producing good urine output and the fluid balance over the past 24 hours has been +3.8 L. He has converted back into normal sinus rhythm. He is on low-dose norepinephrine infusion which is running at 4-5 g per minute. Antibiotic coverage includes a combination of cefepime and vancomycin. He is also on Flagyl. He had a low- grade temperature yesterday with a T-max of 100.2 and currently he is afebrile. He remains nothing by mouth. No significant output from his orogastric tube. No significant abdominal distention. Bowel sounds are hypoactive, nearly absent yet there is no abdominal distention. His echo cardiac damage showed an ejection fraction of 35-40% along with segmental wall motion abnormalities. He is receiving IV fluids at the rate of 100 mL an hour. Discussed the case with cardiology. Discussed the case with oncology. On 03/29/2019 the patient remains intubated on a mechanical ventilator. The patient is sedated with propofol. He is calm and comfortable. Propofol is running at 40 mics. Remains on a mechanical ventilator. Essentially on the same vent setting. Tidal volumes at 6000 with an FiO2 of 40% and PEEP of 5. Blood gas shows further improvement in oxygenation. The pH is at 7.46 and a pCO2 of 28 and pO2 of 163. The patient is a component of acute respiratory alkalosis. Chest x-ray still showing better pulmonary infiltrates and effusion lung bases bilaterally consistent with CHF. The patient is afebrile. Hemodynamically, the patient is on few echograms of norepinephrine infusion for blood pressure support. The patient is producing adequate amount of urine output. The patient was started on IV Lasix. The patient is eating push towards a negative fluid balance over the next 24 hours. The cardiac rhythm is back to atrial fibrillation. The patient was seen again by cardiology. The rate is controlled for now and the patient is on 400 mg of amiodarone by mouth twice a day and metoprolol 12.5 mg by mouth twice a day and Eliquis for long- term anticoagulation was also started. We are hoping to achieve a negative fluid balance over the next 24 hours. Meanwhile, I'm willing to give this patient a sedation holiday and assess his underlying neuro status while being off sedation. He is afebrile. All of the cultures of negative. He is on a broad-spectrum antibiotic coverage utilizing a combination of cefepime and vancomycin. He is also on Flagyl. The patient was started on enteral feeding for nutritional support at the rate of 20 mL an hour of vital high protein. He was able to tolerate that without any significant residual pain no abdominal distention pain no bowel movements yet. We are going to advance the tube feeds and hold the TPN for now and we're going to continue the current TPN bag and stop it following that as the patient seems to be tolerating tube feeds for the time being. Family is at the bedside. The condition was extended to them at length. IV fluids are currently at KVO. On 03/30/2019 I'm seeing this patient for follow-up. Still intubated on a mechanical ventilator. He was still on the same mechanical ventilator settings with the assist control mode at a tidal volume of 500 rate of 20, and FiO2 of 40% and a PEEP of 5 and a blood gas showed a pH of 7.47 with a pCO2 of 32 and pO2 of 147. Chest x-ray showed stable findings of breath the pleural effusion. Nevertheless, the patient was achieving a good negative fluid balance. He was quite successful mechanical ventilator. I give him a sedation holiday. Dis continue the propofol and following that the patient woke up initially was very drowsy and is the day went by, he became progressively more awake and alert. Was found to more awake, the patient had a weaning parameters that showed a tidal volumes ranging between 450 and 550 with a vital capacity of 951 and a minute ventilation of 13 with a rapid shallow breathing index of 50. Accordingly, the patient was given a spontaneous breathing trial with a pressure support of 5 and a PEEP of 5 and following that he became uncomfortable, restless, tachypneic and he went into atrial fibrillation. The child was called and the patient was placed back on low-dose sedation with propofol time micrograms per KG per minute. No fever. No chills. The patient is diuresing and the patient is achieving a negative fluid balance. He is receiving his tube feeds and is tolerating this without any major difficulties. He remains on a combination of cefepime and vancomycin as broad-spectrum antibiotic coverage. He remains on diuretics and the patient is receiving IV Lasix 40 mg every 12 hours. We'll hope to achieve a negative fluid balance over the next 24 hours. Blood pressure is being supported with a low dose of norepinephrine infusion. On 03/31/2019, the patient was taken off sedation and he did very well to the point where he stayed awake and alert and he was able to follow commands without any major difficulties. Weaning parameters were checked and the numbers looked adequate. The patient was given a spontaneous breathing trial and following that the patient was extubated to a BiPAP. Currently is on a BiPAP of 10/5 cm of water. Note that the blood gas post spontaneous breathing trial showed a pH of 7.5 with a pCO2 of 35 and pO2 of 148 and this was on a CPAP trial with a pressure support of 5 and a PEEP of 5 and FiO2 of 40%. Chest x-ray is showing some improvement in the volume status. There is still bilateral pleural effusion. The patient was started on a Lasix drip yesterday at a rate of 5 mg an hour. He has been producing excellent urine output. Her net fluid balance of been -2.2 L for now and will going to continue the Lasix to 40 another 24 hours. Edema is approving all 4 extremities. The patient is in a sinus rhythm. The patient is on 2.5 g per minute of norepinephrine infusion. Afebrile. Still on same antibiotic coverage. White cell count is at 85. Hemoglobin was at 8.9. Renal function stable. He was tolerating his tube feeds earlier and tube feeds were discontinued as the patient was extubated to BiPAP. On 04/01/2019 the patient remains extubated doing well awake and alert and interactive. Following commands and answering questions. Swallow evaluation was done and the patient passed and the patient is provided a diet. He was on Lasix drip and he was urinating adequately and the chest from today shows a moderate-sized bilateral pleural effusion. No cough. No sputum production. No fever. The patient is in normal sinus rhythm. He is on few mics of norepinephrine infusion for blood pressure control. No other significant events overnight. His white cell count is at 76. Hemoglobin is at 9.1. Renal function stable with a creatinine of 1.0. The patient is off vancomycin. He is off Flagyl. He is only on IV cefepime for now. On 04/02/2019, patient is doing extremely well. Awake and alert. No respiratory distress. Chest x-ray shows a small left-sided pleural effusion and small right-sided pleural effusion is also present. He is on 2 L of oxygen by nasal cannula. He is on IV cefepime. He is on IV Lasix. No fever. No chills. Tolerating his diet. He is on 2 g per minute of norepinephrine infusion which should be weaned off problems today. Meanwhile, the patient is doing extremely well as is recovering from his acute respiratory failure. On 04/03/2019, the patient is on room air oxygen. The chest x-ray from today showing small to moderate-sized bilateral pleural effusion unchanged compared to yesterday. He is still requiring pressors on a minimal dose and earlier this morning the leaflet infusion was discontinued. The patient's is currently receiving daily Lasix dose at a dose of 40 mg once a day. His cardiac rhythm is sinus. He is on oral amiodarone. He is tolerating his diet. He had a Bowel movement. He is using incentive spirometer. Gradually getting stronger. I think is reasonable to assume that the patient can be transferred to a medical floor. On 04/04/2019 patient seen in follow-up on medical surgical floor. He is awake and alert,room air pulse ox is 93%, hemodynamically stable, afebrile. All culture data remains negative thus far, patient remains on cefepime. Clinically patient is very stable, denies any specific complaints, denies any shortness of breath. He is working on the incentive spirometer he is achieving 750 mL. Lung sounds are diminished at the bases, he remains on IV Lasix currently at 40 mg daily. Yesterday's chest x-ray showed left lower lobe infiltrates and or small left pleural effusion, and developing a right lower lobe infiltrate hemody namically related to atelectasis possibility of a pneumonia is not excluded. today's labs have been reviewed, serum sodium is 137, potassium is 3.9, chloride is 103, CO2 is 30, BUN is 35, creatinine is 0.93. appetite is good, no nausea or vomiting, she is passing bowel movements. Objective - Vital Signs Vital signs: Vital Signs Temp 97.5 F L 04/04/19 07:35 Pulse 80 04/04/19 11:38 Resp 16 04/04/19 07:35 BP 106/66 04/04/19 07:35 Pulse Ox 93 L 04/04/19 07:35 Intake & Output 04/03/19 04/04/19 04/04/19 18:59 06:59 18:59 Intake Total 5927.491 3275 Output Total 1350 975 350 Balance -209.716 109 -350 Weight 82.9 kg 62.5 kg Intake: IV 80 24 Pressure bags 0.9 30 9 Sodium Chloride 0.9% 1, 50 15 000 ml @ 5 mls/hr IV . Q24H [facility] Rx#:[id number] Intake, IV Titration 100.284 Amount Cefepime 2 gm In Sodium 100 Chloride 0.9% 100 ml @ 200 mls/hr IVPB Q12HR [facility] Rx#:[id number] Norepinephrine 32 mg In 0.284 Sodium Chloride 0.9% 218 ml @ 0.05 MCG/KG/MIN 2. 128 mls/hr IV .Q24H [facility] Rx#:[id number] Oral 960 1060 Output: Urine 1350 975 350 Straight 400 Other: Voiding Method Indwelling Catheter Urinal # Voids 1 2 # Bowel Movements 1 ABP, PAP, CO, CI - Last Documented Arterial Blood Pressure 114/46 - Exam GENERAL EXAM: Alert,very pleasant 78-year-old white male, on room air pulse ox of 93%, comfortable in no apparent distress. HEAD: Normocephalic/atraumatic. EYES: Normal reaction of pupils, equal size. Conjunctiva pink, sclera white. NOSE: Clear with pink turbinates. THROAT: No erythema or exudates. NECK: No masses, no JVD, no thyroid enlargement, no adenopathy. CHEST: No chest wall deformity. Symmetrical expansion. LUNGS: Equal air entry with no crackles, wheeze, rhonchi or dullness, diminished breath sounds at the bases CVS: Regular rate and rhythm, normal S1 and S2, no gallops, no murmurs, no rubs ABDOMEN: Soft, nontender. No hepatosplenomegaly, normal bowel sounds, no guarding or rigidity. EXTREMITIES: No clubbing, no edema, no cyanosis, 2+ pulses and upper and lower extremities. MUSCULOSKELETAL: Muscle strength and tone normal. SPINE: No scoliosis or deformity SKIN: No rashes CENTRAL NERVOUS SYSTEM: Alert and oriented -3. No focal deficits, tone is normal in all 4 extremities. PSYCHIATRIC: Alert and oriented -3. Appropriate affect. Intact judgment and insight. - Labs CBC & Chem 7: 04/03/19 07:00 04/04/19 07:51 Labs: Abnormal Lab Results - Last 24 Hours (Table) 04/03/19 04/03/19 04/04/19 Range/Units 16:53 20:22 07:51 BUN 35 H (9-20) mg/dL POC Glucose (mg/dL) 107 H 107 H (75-99) mg/dL 04/04/19 04/04/19 Range/Units 08:01 11:33 BUN (9-20) mg/dL POC Glucose (mg/dL) 104 H 125 H (75-99) mg/dL Assessment and Plan Plan: 1 shock with profound hypotension currently on pressors. Clinically improved. no vasopressors currently 2 acute hypoxic respiratory failure , improved and currently the patient is extubated on room air oxygen. His chest x-ray showing small to moderate-sized bilateral pleural effusion. The effusion is a much improved compared to yesterday. The patient is receiving daily Lasix doses. 3 acute non-ST segment elevation myocardial infarction, recovered 4 CHF ischemic in nature with ejection fraction of 35% and segmental wall motion abnormalities. 5 paroxysmal atrial fibrillation, current rhythm is sinus. The patient is controlled rate and he is on long-term antibiotic ventilation with Eliquis. 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 7 hematologic abnormalities with an abnormal hematologic profile consistent with CLL. The patient has lymphocytosis, thrombocytopenia and anemia. The patient's counts have been stable. The white cell count remains elevated essentially lymphocytosis in addition to a stable hemoglobin is stable platelet count. 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 complains of shortness of breath, no cough or congestion. ID service is following, and managing the antibiotics, patient remains on cefepime. Culture data remains negative thus far, patient is tolerating oral diet. Passing bowel movements. clinically he is improving. We'll continue to follow I performed a history & physical examination of the patient and discussed their management with my nurse practitioner, Rita García. I reviewed the nurse practitioner's note and agree with the documented findings and plan of care. Lung sounds are positive for diminished breath sounds at the bases. The findings and the impression was discussed with the patient. I attest to the doc umentation by the nurse practitioner. Time with Patient: Less than 30
[2019-04-04] MEDS ORDERED: IMMUNE GLOBULIN (GAMMAGARD) 5 GM in EMPTY BAG 1 BAG IV NR (15:00)
--- NOTE | 2019-04-04 16:17 | P.CONS ---
History of Present Illness - Chief Complaint Medical debility - History of Present Illness I had the opportunity to see patient for inpatient rib consultation with regard to medical debility. He was admitted March 23 with abdominal pain and known CLL. Seen by cardiology for hypotension and PA off. Seen by pulmonary. Seen by Dr. Hernandez for the CLL as well as Dr. Davila. Chest x-ray demonstrates in creasing left lower lobe infiltrate as well as right lower lobe infiltrate. Computed tomography scan of abdomen and pelvis demonstrates pretty, sigmoid diverticulosis. PT reports moderate assistance for bed mobility 2 person minimal assistance for transfer and gait 8 feet with roller walker. OT reports supervision for upper dressing, minimal assistance for lower dressing and moderate assistance for bathing and toileting. 2 person minimal assistance for functional mobility. Previous functional history as elicited from patient: 78-year-old right-handed white male who is lives in one floor home with . Patient retired and will retire in one month. does the cooking, laundry, driving. Patient describes independent with tub bath although he will get and walking shower. Denies assistive device. Denies tobacco or alcohol. Dr. Reaves is regular doctor. Family history of both parents with GA. Review of Systems Review of systems: ENT: Denies sneezes or discharge. Eyes: Denies discharge or photophobia. Cardiac: Denies chest pain or palpitation. Pulmonary: At least mild shortness of breath. Gastrointestinal: Denies nausea, emesis, constipation, diarrhea. Genitourinary: Denies discharge or frequency. Musculoskeletal: Denies muscle or bone aches. Neurologic: Generalized weakness. Endocrine: Denies shakes or sweats. Oncology: Denies cancers. Dermatologic: Denies rash, itching, pruritus. ALLERGY/immunology: Denies sneezes, rashes. Past Medical History Past Medical History: Atrial Fibrillation, Cancer, Hyperlipidemia, Hypertension, Myocardial Infarction (GA), Pneumonia Additional Past Medical History / Comment(s): arrhythmia was previuosly charted but pt denies this, chronic lymphocytic leukemia , inguinal hernia, hx skin cancer, nstemi 07-12-16 per summary-pt not aware of this. had shigelles vaccine 2011 and in 2012 got a case of the shingelles. 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 murmur."stroke behind lt eye" Last Myocardial Infarction Date:: 1997 History of Any Multi-Drug Resistant Organisms: None Reported Past Surgical History: Hernia Repair, Orthopedic Surgery, Tonsillectomy Additional Past Surgical History / Comment(s): bilateral rotator cuffs, catar acts, umb hernia repair, rt axilla lymph node bx.colonscopy Past Anesthesia/Blood Transfusion Reactions: No Reported Reaction Additional Past Anesthesia/Blood Transfusion Reaction / Comm: clausterphobia. had blood transfusion- no reaction Past Psychological History: No Psychological Hx Reported Smoking Status: Former smoker Past Alcohol Use History: None Reported Past Drug Use History: None Reported - Past Family History Mother Family Medical History: No Reported History Additional Family Medical History / Comment(s): pt stated his mom was healthy never went to the dr. dropped at age 70 Father Family Medical History: Congestive Heart Failure (CHF), Myocardial Infarction (GA), Vascular Disorder Additional Family Medical History / Comment(s): at age 75. hx heavy smoker Medications and Allergies Home Medications Medication Instructions Recorded Confirmed Type Propafenone [Rythmol] 225 mg PO BID 12/04/15 03/23/19 History Simvastatin [Zocor] 40 mg PO HS 01/23/18 03/23/19 History Metoprolol Tartrate [Lopressor] 25 mg PO BID 12/15/18 03/23/19 History Levofloxacin [Levaquin] 500 mg PO DAILY 03/23/19 03/23/19 History Amiodarone [Cordarone] 200 mg PO BID tab 04/04/19 Rx Cefuroxime Axetil [Ceftin] 500 mg PO BID #10 tab 04/04/19 Rx Allergies Allergy/AdvReac Type Severity Reaction Status Date / Time No Known Allergies Allergy Verified 03/23/19 08:59 Physical Exam Vitals: Vital Signs Temp Pulse Pulse Pulse Resp BP BP 04/04/19 16:01 80 04/04/19 15:47 78 04/04/19 15:43 79 81/57 04/04/19 14:57 77 91/51 04/04/19 14:39 97.8 F 80 16 95/58 04/04/19 11:38 80 04/04/19 11:26 80 04/04/19 08:59 80 04/04/19 08:47 80 04/04/19 07:35 97.5 F L 84 16 106/66 04/04/19 01:37 99.0 F 75 17 96/62 04/03/19 21:00 78 24 107/74 04/03/19 20:00 89 28 H 96/60 04/03/19 19:10 84 04/03/19 19:01 82 25 H 04/03/19 19:00 81 25 H 04/03/19 18:00 87 23 96/60 04/03/19 17:00 80 13 101/63 Pulse Ox 04/04/19 16:01 04/04/19 15:47 97 04/04/19 15:43 04/04/19 14:57 04/04/19 14:39 92 L 04/04/19 11:38 04/04/19 11:26 04/04/19 08:59 04/04/19 08:47 04/04/19 07:35 93 L 04/04/19 01:37 95 04/03/19 21:00 95 04/03/19 20:00 92 L 04/03/19 19:10 04/03/19 19:01 04/03/19 19:00 94 L 04/03/19 18:00 92 L 04/03/19 17:00 92 L Intake and Output 04/04/19 04/04/19 04/04/19 06:59 14:59 22:59 Intake Total 820 400 Output Total 550 350 Balance 270 50 Intake: Oral 820 400 Output: Urine 550 350 Straight 400 Other: Voiding Method Urinal # Voids 1 2 # Bowel Movements 1 Weight 62.5 kg Skin: Good color, texture, turgor. General: Medium build and comfortable appearance. Head: Normocephalic, atraumatic. Eyes: Symmetric. Pupils equal round. Ears: Symmetric. Hearing within normal limits. Mouth: Clear. Neck: Supple. Carotid without bruit. Cardiac: Regular rate and rhythm. Lungs: Clear anteriorly and posteriorly. Abdomen: Soft active nontender. Extremities: Normal tone. Neurological: Mental status: Alert, cooperative, pleasant. Cranial nerves: Symmetric facial tone and trapezius. Motor: Can elevate arms and legs but is less than antigravity. Sensation: Intact throughout. DTRs: Symmetric and equal throughout. Mobility: Requires two-person assistance for bed mobility. Results CBC & Chem 7: 04/03/19 07:00 05/28/19 07:51 Labs: Abnormal Lab Results - Last 24 Hours (Table) 04/03/19 04/03/19 04/04/19 Range/Units 16:53 20:22 07:51 BUN 35 H (9-20) mg/dL POC Glucose (mg/dL) 107 H 107 H (75-99) mg/dL 04/04/19 04/04/19 Range/Units 08:01 11:33 BUN (9-20) mg/dL POC Glucose (mg/dL) 104 H 125 H (75-99) mg/dL Assessment and Plan (1) Acute non-ST elevation myocardial infarction (NSTEMI) Current Visit: Yes Status: Acute Priority: High Code(s): I21.4 - NON-ST ELEVATION (NSTEMI) MYOCARDIAL INFARCTION SNOMED Code(s): 048031297 (2) Acute respiratory failure with hypoxia Current Visit: Yes Status: Acute Priority: High Code(s): J96.01 - ACUTE RESPIRATORY FAILURE WITH HYPOXIA SNOMED Code(s): 50569803 Plan: Impression: 1. Medical debility. 2. Non-STEMI. 3. COPD exacerbation. 4. CLL. 5. Generalized weakness. 6. Hypertension. 7. PAF. Comments and plan: PT and OT are ongoing. Patient however was endurance issues and therapies are recommending subacute rehab placement. This appears be reasonable at this time. We'll continue to follow with yourself though.
[2019-04-04] MEDS: FUROSEMIDE 40 MG TAB PO SCH (16:47)
[2019-04-04] MEDS: SODIUM CHLORIDE 0.9% 1,000 ML IV SCH (16:57)
[2019-04-04] MEDS ORDERED: IMMUNE GLOBULIN (GAMMAGARD) 20 GM in EMPTY BAG 1 BAG IV NR (17:00)
[2019-04-04 17:05] LABS: Glucose,Whole Blood 110 mg/dL (75-99)
--- NOTE | 2019-04-04 18:31 | P.PN ---
Subjective Progress Note Date: 04/04/19 Principal diagnosis: Cardiopulmonary arrest, acute DC, Enlarging abdominal mass In follow-up today patient is seen sitting up in bed. His pain is controlled, he is tolerating oral intake, he is doing the best he can to rehabilitate. He denies fevers, nausea, vomiting, chest pain, abdominal pain, dysuria, hematuria, diarrhea or constipation. Objective - Vital Signs Vital signs: Vital Signs Temp 97.8 F 04/04/19 14:39 Pulse 79 04/04/19 16:51 Resp 16 04/04/19 14:39 BP 100/58 04/04/19 16:51 Pulse Ox 97 04/04/19 15:47 Intake & Output 04/03/19 04/04/19 04/04/19 18:59 06:59 18:59 Intake Total 9214.101 9225 400 Output Total 1350 975 350 Balance -209.716 109 50 Weight 82.9 kg 62.5 kg Intake: IV 80 24 Pressure bags 0.9 30 9 Sodium Chloride 0.9% 1, 50 15 000 ml @ 5 mls/hr IV . Q24H [facility] Rx#:[id number] Intake, IV Titration 100.284 Amount Cefepime 2 gm In Sodium 100 Chloride 0.9% 100 ml @ 200 mls/hr IVPB Q12HR [facility] Rx#:[id number] Norepinephrine 32 mg In 0.284 Sodium Chloride 0.9% 218 ml @ 0.05 MCG/KG/MIN 2. 128 mls/hr IV .Q24H [facility] Rx#:[id number] Oral 960 1060 400 Output: Urine 1350 975 350 Straight 400 Other: Voiding Method Indwelling Catheter Urinal # Voids 1 2 # Bowel Movements 1 ABP, PAP, CO, CI - Last Documented Arterial Blood Pressure 114/46 - Constitutional General appearance: Present: average body habitus, cooperative, no acute distress - EENT Eyes: Present: anicteric sclerae, EOMI, normal appearance ENT: Present: hearing grossly normal - Respiratory Respiratory: bilateral: diminished, rales (Few scattered) - Cardiovascular Heart sounds: normal: S1, S2 Abnormal Heart Sounds: Present: systolic murmur - Peripheral edema leg Peripheral Edema: bilateral: None - Gastrointestinal General gastrointestinal: Present: normal bowel sounds, soft. Absent: absent bowel sounds, decreased bowel sounds, distended, hepatomegaly, hyperactive bowel sounds, organomegaly, rigid, scaphoid, splenomegaly, tenderness, umbilical hernia, ventral hernia - Integumentary Integumentary: Present: pale - Neurologic Neurologic: Present: CNII-XII intact - Musculoskeletal Musculoskeletal: Present: generalized weakness, strength equal bilaterally - Psychiatric Psychiatric: Present: A&O x's 3, appropriate affect, intact judgment & insight - Labs CBC & Chem 7: 04/03/19 07:00 04/04/19 07:51 Labs: Abnormal Lab Results - Last 24 Hours (Table) 04/03/19 04/04/19 04/04/19 Range/Units 20:22 07:51 08:01 BUN 35 H (9-20) mg/dL POC Glucose (mg/dL) 107 H 104 H (75-99) mg/dL 04/04/19 04/04/19 Range/Units 11:33 16:54 BUN (9-20) mg/dL POC Glucose (mg/dL) 125 H 110 H (75-99) mg/dL - Imaging and Cardiology Chest x-ray: report reviewed Assessment and Plan (1) Acute respiratory failure with hypoxia Current Visit: Yes Status: Resolved Priority: High Code(s): J96.01 - ACUTE RESPIRATORY FAILURE WITH HYPOXIA SNOMED Code(s): 84598783 (2) Acute non-ST elevation myocardial infarction (NSTEMI) Narrative/Plan: Medical management per Cardiology. Current Visit: Yes Status: Acute Priority: High Code(s): I21.4 - NON-ST ELEVATION (NSTEMI) MYOCARDIAL INFARCTION SNOMED Code(s): 553959925 (3) Elevated troponin Current Visit: Yes Status: Acute Priority: High Code(s): R79.89 - OTHER SPECIFIED ABNORMAL FINDINGS OF BLOOD CHEMISTRY SNOMED Code(s): 908364832 (4) Leukocytosis Narrative/Plan: Stable at this time. Current Visit: Yes Status: Acute Priority: Medium Code(s): D72.829 - ELEVATED WHITE BLOOD CELL COUNT, UNSPECIFIED SNOMED Code(s): 661849633 (5) Hypogammaglobulinemia Narrative/Plan: Case was discussed with pharmacist. Patient's IgG is 163. Current Visit: Yes Status: Acute Priority: High Code(s): D80.1 - NONFAMILIAL HYPOGAMMAGLOBULINEMIA SNOMED Code(s): 758310173 Plan: Patient is just a few days off the ventilator. Plan is to biopsy the very enlarged lymph node in the abdomen. We will have Interventional Radiology to look patient's imaging and get their opinion on amenability of LN to biopsy. Would prefer to give the patient another day or 2 to ensure hemodynamic stability.
[2019-04-04] MEDS: ATORVASTATIN 20 MG TAB PO SCH (20:13)
[2019-04-04 20:17] LABS: Glucose,Whole Blood 105 mg/dL (75-99)
[2019-04-04] MEDS: ZOLPIDEM 5 MG TAB PO PRN (20:23)
--- NOTE | 2019-04-04 22:09 | P.PN ---
Subjective Progress Note Date: 04/04/19 Principal diagnosis: pneumonia Patient initially admitted hospital with abdominal pain in this patient did have significant increase in size of abdominal lymphadenopathy and possible component of diverticulitis patient was transferred to the ICU because of hypotension , morning of 03/26/2019 the patient did have significant change in his clinical condition and the patient ripped off his IV and leads subsequently did have significant drop in the blood pressure and respiratory distress patient ended up getting intubated on 03/26/2019. On today's evaluation that is 04/04/2019, the patient is afebrile , the patient has been transferred out of the ICU, the patient is breathing comfortably on room air, the patient denies having any chest pain or shortness of breath, the patient with occasional cough but not sputum the patient denies nausea no vomiting no abdominal pain and no diarrhea Objective - Vital Signs Vital signs: Vital Signs Temp 97.5 F L 04/04/19 07:35 Pulse 80 04/04/19 11:38 Resp 16 04/04/19 07:35 BP 106/66 04/04/19 07:35 Pulse Ox 93 L 04/04/19 07:35 Intake & Output 04/03/19 04/04/19 04/04/19 18:59 06:59 18:59 Intake Total 1626.540 7377 Output Total 1350 975 350 Balance -209.716 109 -350 Weight 82.9 kg 62.5 kg Intake: IV 80 24 Pressure bags 0.9 30 9 Sodium Chloride 0.9% 1, 50 15 000 ml @ 5 mls/hr IV . Q24H [facility] Rx#:[id number] Intake, IV Titration 100.284 Amount Cefepime 2 gm In Sodium 100 Chloride 0.9% 100 ml @ 200 mls/hr IVPB Q12HR [facility] Rx#:[id number] Norepinephrine 32 mg In 0.284 Sodium Chloride 0.9% 218 ml @ 0.05 MCG/KG/MIN 2. 128 mls/hr IV .Q24H [facility] Rx#:[id number] Oral 960 1060 Output: Urine 1350 975 350 Straight 400 Other: Voiding Method Indwelling Catheter Urinal # Voids 1 2 # Bowel Movements 1 ABP, PAP, CO, CI - Last Documented Arterial Blood Pressure 114/46 - Exam GENERAL DESCRIPTION: The patient awake alert and in no distress HEENT: [Oral mucosa dry] EYES : [pallor or scleral icterus] RESPIRATORY SYSTEM: [Unlabored breathing decreased breath sound at the base] CARDIA VASCULAR SYSTEM: [S1-S2 regular rate and rhythm no murmur] GI: [Abdominal soft there's no tenderness no organomegaly] EXTREMITIES: [No edema feet] - Labs CBC & Chem 7: 04/03/19 07:00 04/04/19 07:51 Labs: Abnormal Lab Results - Last 24 Hours (Table) 04/03/19 04/03/19 04/04/19 Range/Units 16:53 20:22 07:51 BUN 35 H (9-20) mg/dL POC Glucose (mg/dL) 107 H 107 H (75-99) mg/dL 04/04/19 04/04/19 Range/Units 08:01 11:33 BUN (9-20) mg/dL POC Glucose (mg/dL) 104 H 125 H (75-99) mg/dL Assessment and Plan Assessment: 1-patient admitted to the hospital with abdominal pain with concern for abdominal ischemia from a large intra-abdominal masses/lymphadenopathy adequately treated, now with evidence of worsening finding on the chest x-ray possible atelectasis and a question of pneumonia Plan: 1-the patient has been advised to continue with incentive spirometry every hour on the hour 2--cefepime 2 g every 12hrs which will be transitioned to Ceftin 500 mg twice a day for about 5-7 days to finish a course of therapy cannot use the Avelox which had been ideal as the patient is on amiodarone Time with Patient: Less than 30
[2019-04-05 06:50] LABS: Glucose,Whole Blood 109 mg/dL (75-99)
[2019-04-05] MEDS: INSULIN ASPART (NovoLOG) 100 UNIT/ML VIAL SQ SCH ×2 (07:12→12:12)
[2019-04-05 08:01] LABS: Glucose,Whole Blood 99 mg/dL (75-99)
[2019-04-05 08:01] LABS: Glucose,Whole Blood 101 mg/dL (75-99)
[2019-04-05] MEDS: ASPIRIN 81 MG PO SCH (08:01)
[2019-04-05] MEDS: FUROSEMIDE 40 MG TAB PO SCH (08:01)
[2019-04-05] MEDS: APIXABAN 5 MG TAB PO SCH (08:01)
[2019-04-05] MEDS: CEFEPIME 2 GM in SODIUM CHLORIDE 0.9% 100 ML IVPB SCH (08:02)
[2019-04-05] MEDS: METOPROLOL TARTRATE 25 MG TAB PO SCH (08:02)
[2019-04-05] MEDS: IPRATROPIUM-ALBUTEROL 3 ML NEB INHALATION SCH ×3 (08:29→15:26)
[2019-04-05] MEDS ORDERED: AMIODARONE 200 MG TAB PO SCH (09:00)
[2019-04-05 09:42] VITALS: BP 111/61; PULSE 87; RESP 16; TEMP 97.7
--- NOTE | 2019-04-05 09:49 | P.DS ---
Providers Date of admission: 03/23/19 08:08 Expected date of discharge: 04/05/19 Attending physician: Riri Deng MD Consults: 03/23/19 08:09 Consult Physician Routine Consulting Provider: Moiz Hernandez Consult Reason/Comments: CLL, ab mass Do you want consulting provider notified?: Yes 03/23/19 12:27 Consult Physician Urgent Consulting Provider: Collin Davila Consult Reason/Comments: Sepsis Do you want consulting provider notified?: Yes 03/25/19 11:59 Consult Physician Urgent Consulting Provider: Mindy Rajput Consult Reason/Comments: blood pressure mdication review and monitoring Do you want consulting provider notified?: Already Contacted 03/25/19 17:39 Consult Physician Urgent Consulting Provider: Omari Rizzo Consult Reason/Comments: ICU intensiveness Do you want consulting provider notified?: Already Contacted 04/04/19 11:19 Consult Physician Routine Consulting Provider: Patrick Quiroga Consult Reason/Comments: inpatient rehab eval Do you want consulting provider notified?: Yes Primary care physician: Escobar Reaves - Discharge Diagnosis(es) (1) Shock Status: Resolved (2) Acute respiratory failure with hypoxia Status: Resolved Priority: High (3) Non-STEMI (non-ST elevated myocardial infarction) Status: Acute (4) Ischemic cardiomyopathy Status: Acute (5) Paroxysmal atrial fibrillation Status: Acute (6) Leukocytosis Status: Acute Priority: Medium (7) CLL (chronic lymphocytic leukemia) Status: Chronic Priority: High (8) Electrolyte depletion Status: Resolved Hospital Course: The patient is a 78-year-old male with a past medical history of CLL receiving FOLFOX treatment that was admitted with abdominal pain and subsequently went into acute respiratory failure with hemodynamic failure and shock of multifactorial etiology secondary to cardiogenic superimposed septic shock due to possible diverticulitis and pneumonia the patient was intubated and placed in the ventilator and was noted to have suffered a acute non- STEMI with troponin peaking at 31. The patient was sedated on propofol and pulmonary is consulted to manage ventilator, patient was also placed on IV pressors with levophed constant monitoring of CVP, he was placed on broad-spectrum antibiotics with the guidance of ID with Flagyl and cefepime and vancomycin, pending cultures are negative, however CT abdomen and pelvis suggested increasing retroperitoneal mass/adenopathy with intraperitoneal nodules and mesenteric pelvic inguinal and mediastinal adenopathy and possible diverticulitis. The patient was noted to have a persistent leukocytosis but does high as 87,000. The patient was noted to be in acute systolic CHF exacerbation with ischemic cardiomyopathy due to his underlying STEMI ejection fraction on echocardiogram was 35-40% with segmental wall motion abnormality, the patient was placed on IV Lasix drip, and started on beta blockers and placed on amiodarone drip and anticoagulation secondary to A. fib with RVR, the patient was placed on TPN and high-protein tube enteral feeds for nutritional support. The patient gradually improved and was subsequently extubated with post extubation x-rays suggesting bilateral lower lobe pulmonary infiltrates and small bilateral pleural effusions that were small to moderate in size. The patient was seen by hematology oncology due to his history of CLL and anemia with ongoing lymphocytosis thrombocytopenia and anemia, and the patient was placed on IVIG secondary to hypogammaglobulinemia secondary to CLL. The plan was to set the patient up for biopsy of abdominal lymph nodes which will be done as an outpatient per oncology. The patient was able to qualify for subacute rehab after being evaluated by Dr. Quiroga. Patient was subsequently discharged to subacute rehab in stable condition this discharge process took approximately 35 minutes. Constitutional: No acute distress, conversant, pleasant Eyes: Anicteric sclerae, moist conjunctiva, no lid-lag, PERRLA ENMT: NC/AT,Oropharynx clear, no erythema, exudates Neck:Supple, FROM, no masses, or JVD, No carotid bruits; No thyromegaly Lungs: Diminished in the bases with few scattered rales Cardiovascular: Heart regular in rate and rhythm, No murmurs, gallops, or rubs no peripheral edema Abdominal: Soft Nontender, nom distended, no guarding, no rebound or rigidity, Normoactive bowel sounds No hepatomegaly, No splenomegaly, No palpable mass No abdominal wall hernia noted Skin: Normal temperature, tone, texture, turgor, No induration No subcutaneous nodules, No rash, lesions, No ulcers Extremities:No digital cyanosis No clubbing, Pedal pulses intact and symmetrical Radial pulses intact and symmetrical Normal gait and station, No calf tenderness Psychiatric: Alert and oriented to person, place and time, Appropriate affect Intact judgement Neuro: Muscles Strength 5/5 in all 4 extremities, Sensation to light touch grossly present throughout, Cranial nerves II-XII grossly intact. No focal sensory deficits Patient Condition at Discharge: Good Plan - Discharge Summary Discharge Rx Participant: No New Discharge Prescriptions: New Amiodarone [Cordarone] 200 mg PO BID tab Cefuroxime Axetil [Ceftin] 500 mg PO BID #10 tab Aspirin 81 mg PO DAILY #30 chew Apixaban [Eliquis] 5 mg PO BID #60 tab Furosemide [Lasix] 40 mg PO BID@0900,1600 #60 tab Atorvastatin [Lipitor] 20 mg PO HS #30 tab Sennosides [Senokot] 8.6 mg PO DAILY PRN 30 Days #30 tab PRN Reason: Constipation Continue Metoprolol Tartrate [Lopressor] 25 mg PO BID Discontinued Propafenone [Rythmol] 225 mg PO BID Simvastatin [Zocor] 40 mg PO HS Levofloxacin [Levaquin] 500 mg PO DAILY Discharge Medication List Metoprolol Tartrate [Lopressor] 25 mg PO BID 12/15/18 [History] Amiodarone [Cordarone] 200 mg PO BID tab 04/04/19 [Rx] Cefuroxime Axetil [Ceftin] 500 mg PO BID #10 tab 04/04/19 [Rx] Apixaban [Eliquis] 5 mg PO BID #60 tab 04/05/19 [Rx] Aspirin 81 mg PO DAILY #30 chew 04/05/19 [Rx] Atorvastatin [Lipitor] 20 mg PO HS #30 tab 04/05/19 [Rx] Furosemide [Lasix] 40 mg PO BID@0900,1600 #60 tab 04/05/19 [Rx] Sennosides [Senokot] 8.6 mg PO DAILY PRN 30 Days #30 tab 04/05/19 [Rx] Follow up Appointment(s)/Referral(s): Moiz Hernandez MD [STAFF PHYSICIAN] - 1 Week Escobar Reaves MD [Primary Care Provider] - 1-2 days Harry Galeano MD [STAFF PHYSICIAN] - 05/02/19 2:45 pm Discharge Disposition: TRANSFER TO SNF/ECF
--- NOTE | 2019-04-05 10:51 | P.PN ---
Subjective Progress Note Date: 04/04/19 Patient seen and examined in follow-up doing well reports that he's eating and tolerating his diet well, would like to get up and ambulate, reports that he's been up sitting in the chair he yesterday and earlier today. Continues to work with his incentive spirometry getting stronger, IV pressor was discontinued early this morning. Leukocytosis improving daily, continued on cefepime. No acute events overnight Objective - Vital Signs Vital signs: Vital Signs Temp 97.7 F 04/05/19 08:00 Pulse 84 04/05/19 08:40 Resp 16 04/05/19 08:00 BP 111/61 04/05/19 08:00 Pulse Ox 95 04/05/19 08:00 Intake & Output 04/04/19 04/05/19 04/05/19 18:59 06:59 18:59 Intake Total 400 120 Output Total 350 Balance 50 120 Weight 79.9 kg Intake: IV 20 Sodium Chloride 0.9% 1, 20 000 ml @ 5 mls/hr IV . Q24H [facility] Rx#:[id number] Intake, IV Titration 100 Amount Cefepime 2 gm In Sodium 100 Chloride 0.9% 100 ml @ 200 mls/hr IVPB Q12HR [facility] Rx#:[id number] Oral 400 Output: Urine 350 Other: Voiding Method Urinal # Voids 2 2 # Bowel Movements 1 ABP, PAP, CO, CI - Last Documented Arterial Blood Pressure 114/46 - Exam Constitutional: No acute distress, conversant, pleasant Eyes: Anicteric sclerae, moist conjunctiva, no lid-lag, PERRLA ENMT: NC/AT,Oropharynx clear, no erythema, exudates Neck:Supple, FROM, no masses, or JVD, No carotid bruits; No thyromegaly, left IJ in place Lungs: Diminished in the bases bilaterally with bibasilar crackles, no respiratory distress on RA Cardiovascular: Heart regular in rate and rhythm, No murmurs, gallops, or rubs no peripheral edema Abdominal: Soft Nontender, nom distended, no guarding, no rebound or rigidity, Normoactive bowel sounds No hepatomegaly, No splenomegaly, No palpable mass No abdominal wall hernia noted Skin: Normal temperature, tone, texture, turgor, No induration No subcutaneous nodules, No rash, lesions, No ulcers Extremities:No digital cyanosis No clubbing, Pedal pulses intact and symmetrical Radial pulses intact and symmetrical Normal gait and station, No calf tenderness Neuro: Awake and following simple commands squeezing fingers pupils are reactive to light, no seizure activity - Labs CBC & Chem 7: 04/03/19 07:00 04/04/19 07:51 Labs: Abnormal Lab Results - Last 24 Hours (Table) 04/03/19 04/04/19 04/04/19 Range/Units 06:49 11:33 16:54 POC Glucose (mg/dL) 101 H 125 H 110 H (75-99) mg/dL 04/04/19 04/05/19 Range/Units 20:04 06:39 POC Glucose (mg/dL) 105 H 109 H (75-99) mg/dL Assessment and Plan (1) Shock Narrative/Plan: * Multifactorial due to cardiogenic secondary to non-STEMI with ICM superimposed on septic shock due PNA and intrabdominal pathology * Patient continued weaned off IV pressors * Continued on broad-spectrum antibiotics with cefepime with infectious disease following Current Visit: Yes Status: Resolved Code(s): R57.9 - SHOCK, UNSPECIFIED SNOMED Code(s): 62559037 (2) Acute respiratory failure with hypoxia Narrative/Plan: * Secondary to septic shock with superimposed by basilar pneumonia with pleural effusions small to moderate in size * Patient recently extubated 03/31 continues to wean oxygen currently down to 2 L via nasal cannula * chest x-ray yesterday showing stable basilar atelectasis and infiltrates with bilateral pleural effusions (consider chest ultrasound to evaluate for thoracentesis), repeat chest x-ray pending * Continue scheduled and when necessary DuoNeb bronchodilator breathing treatments Current Visit: Yes Status: Resolved Priority: High Code(s): J96.01 - ACUTE RESPIRATORY FAILURE WITH HYPOXIA SNOMED Code(s): 77342989 (3) Non-STEMI (non-ST elevated myocardial infarction) Narrative/Plan: * Initial troponin less than 0.012. EKG ordered yesterday for concerns of tachycardia, with ST depression, troponin reordered to rule out ACS. * Repeat troponin 3.650, 8.210, 20.4, 31. Possibly related to true cardiac event from severe anemia and hypotension. * Echocardiogram shows EF 35-40% with hypokinetic wall motion. * Continue Telemetry monitoring. Continue aspirin. * As per Dr. Rajput, not candidate for aggressive cardiac workup. Follow cardiology recommendations. No heparin due to severe anemia. Current Visit: Yes Status: Acute Code(s): I21.4 - NON-ST ELEVATION (NSTEMI) MYOCARDIAL INFARCTION SNOMED Code(s): 41981197 (4) Ischemic cardiomyopathy Narrative/Plan: * Secondary to non STEMI * Initial Echocardiogram revealed impaired LV function EF of 35-40% with wall motion abnormalities, repeat echocardiogram continues to show ejection fraction of 35% * Continue metoprolol continue aspirin monitor urine output and Lsix ggt discontinued but continued on the IV Lasix * Cardiology following Current Visit: Yes Status: Acute Code(s): I25.5 - ISCHEMIC CARDIOMYOPATHY SNOMED Code(s): 163463824 (5) Paroxysmal atrial fibrillation Narrative/Plan: * Currently rate controlled And currently in sinus rhythm * Continue metoprolol and Amiodarone PO * Continue anticoagulation with eliquis Current Visit: Yes Status: Acute Code(s): I48.0 - PAROXYSMAL ATRIAL FIBRILLATION SNOMED Code(s): 686775470 (6) Leukocytosis Narrative/Plan: * CLL superimposed on sepsis concern for progression versus reactive inflamm ation * Appreciate hematology recommendations Current Visit: Yes Status: Acute Priority: Medium Code(s): D72.829 - ELEVATED WHITE BLOOD CELL COUNT, UNSPECIFIED SNOMED Code(s): 126435168 (7) CLL (chronic lymphocytic leukemia) Narrative/Plan: * Profound lymphocytosis thrombocytopenia and anemia consistent with underlying CLL * Noted hypogammaglobulinemia patient scheduled to receive IV IG today I will also need biopsy of abdominal lymphadenopathy the patient is currently on DOAC with eliquis and antiplatelet with plavix * Noted significant enlargement of intra-abdominal lymphadenopathy causing mass effect and abdominal structures including the bowel and kidneys Current Visit: No Status: Chronic Priority: High Code(s): C91.10 - CHRONIC LYMPHOCYTIC LEUK OF B-CELL TYPE NOT ACHIEVE REMIS SNOMED Code(s): 13993042 (8) Electrolyte depletion Narrative/Plan: * Continue potassium and mag replacement protocols Current Visit: Yes Status: Resolved Code(s): E87.8 - OTH DISORDERS OF ELECTROLYTE AND FLUID BALANCE, NEC SNOMED Code(s): 42150449 Plan: Disposition * Patient doing well continue current course * plan rehab consult with Dr. Quiroga patient might be a candidate for subacute * Patient stable for transfer to the medical floor
[2019-04-05 12:07] LABS: Glucose,Whole Blood 131 mg/dL (75-99)
--- NOTE | 2019-04-05 12:36 | P.PN ---
Subjective Progress Note Date: 04/05/19 Principal diagnosis: shock with profound hypotension, resolved acute hypoxic respiratory failure, requiring intubation and placement on mechanical ventilation, resolved On today's evaluation of 03/27/2019 I'm seeing this patient for a follow-up. The patient is currently intubated on a mechanical ventilator. The patient is known history of CLL receiving FOLFOX treatment on outpatient basis.. The patient came in for increased abdominal pain and subsequently the patient went into respiratory failure and hemodynamic collapse. The patient suffered an acute non-ST segment elevation myocardial infarction and troponin peaked at 31. Cardiology is on the case This morning, the patient was sedated with propofol at 50 g per KG per minute. The patient is intubated on a mechanical ventilator. Earlier this morning the patient was on a volume cycle mode of ventilation with a tidal volume of 600 with a rate of 20, FiO2 of 40% and a PEEP of 5. The patient is intubated with a #8 ET tube. The blood gases from this morning showed a pH of 7.39 with a pCO2 of 28 and pO2 of 147. The patient was still having higher tidal volumes and is minute ventilation was quite elevated. Based on all this, I increased his tidal volume of 2 600 which made the patient much more comfortable and sickness with a mechanical ventilator. The patient is afebrile. The patient is hypotensive and earlier this morning he was on norepinephrine infusion running at a rate of 21 mcg/m. His urine output is in order of 60 mL an hour. The patient is on IV fluids at 0.9 at the rate of 100 mL an hour. The patient is in atrial fibrillation. He is on an amiodarone drip at 0.5 g per minute as a maintenance. He has a left IJ triple-lumen catheter and the CVP is in the range of 8 and 9 mmHg. The patient had a chest x-ray this morning that showed bilateral basilar infiltrates and bilateral pleural effusions are small. The patient also had some mild cardiomegaly. ET tube was lying low with a tip being around 1. 6 cm above the pavel. The patient remains nothing by mouth. He remains well covered with a combination of cefepime and Flagyl and vancomycin as broad-spectrum antibiotic coverage. Urine culture from 2018 has been negative. Sputum culture from 03/26/2019 is negative and the blood culture from 516 has been negative and the repeat blood culture was sent on 03/27/2019. Hematologic profile was quite abnormal and then consistent with the patient's history of CLL. Hemoglobin is at 7.3 with a platelet count of 149 and a white cell count of 82.3. Anything else no abdominal distention. OG tube is in place and there is no significant drainage from the orogastric tube. Echocardiogram showed segmental wall motion abnormalities along with an ejection fraction of 35-40%. On 03/28/2019 I'm seeing this patient for a follow-up. He was intubated sedated on a mechanical ventilator. The patient is currently on assist control mode of ventilation with a tidal volume of 6000 and FiO2 of 40% with a PEEP of 5 and the rate of 20. Blood gases from today showed a pH of 7.38 with a pCO2 of 27 and pO2 of 159. His chest x-ray still showing bilateral pulmonary infiltrates and cardiomegaly and ET tube is in good location. The patient is producing good urine output and the fluid balance over the past 24 hours has been +3.8 L. He has converted back into normal sinus rhythm. He is on low-dose norepinephrine infusion which is running at 4-5 g per minute. Antibiotic coverage includes a combination of cefepime and vancomycin. He is also on Flagyl. He had a low- grade temperature yesterday with a T-max of 100.2 and currently he is afebrile. He remains nothing by mouth. No significant output from his orogastric tube. No significant abdominal distention. Bowel sounds are hypoactive, nearly absent yet there is no abdominal distention. His echo cardiac damage showed an ejection fraction of 35-40% along with segmental wall motion abnormalities. He is receiving IV fluids at the rate of 100 mL an hour. Discussed the case with cardiology. Discussed the case with oncology. On 03/29/2019 the patient remains intubated on a mechanical ventilator. The patient is sedated with propofol. He is calm and comfortable. Propofol is running at 40 mics. Remains on a mechanical ventilator. Essentially on the same vent setting. Tidal volumes at 6000 with an FiO2 of 40% and PEEP of 5. Blood gas shows further improvement in oxygenation. The pH is at 7.46 and a pCO2 of 28 and pO2 of 163. The patient is a component of acute respiratory alkalosis. Chest x-ray still showing better pulmonary infiltrates and effusion lung bases bilaterally consistent with CHF. The patient is afebrile. Hemodynamically, the patient is on few echograms of norepinephrine infusion for blood pressure support. The patient is producing adequate amount of urine output. The patient was started on IV Lasix. The patient is eating push towards a negative fluid balance over the next 24 hours. The cardiac rhythm is back to atrial fibrillation. The patient was seen again by cardiology. The rate is controlled for now and the patient is on 400 mg of amiodarone by mouth twice a day and metoprolol 12.5 mg by mouth twice a day and Eliquis for long- term anticoagulation was also started. We are hoping to achieve a negative fluid balance over the next 24 hours. Meanwhile, I'm willing to give this patient a sedation holiday and assess his underlying neuro status while being off sedation. He is afebrile. All of the cultures of negative. He is on a broad-spectrum antibiotic coverage utilizing a combination of cefepime and vancomycin. He is also on Flagyl. The patient was started on enteral feeding for nutritional support at the rate of 20 mL an hour of vital high protein. He was able to tolerate that without any significant residual pain no abdominal distention pain no bowel movements yet. We are going to advance the tube feeds and hold the TPN for now and we're going to continue the current TPN bag and stop it following that as the patient seems to be tolerating tube feeds for the time being. Family is at the bedside. The condition was extended to them at length. IV fluids are currently at KVO. On 03/30/2019 I'm seeing this patient for follow-up. Still intubated on a mechanical ventilator. He was still on the same mechanical ventilator settings with the assist control mode at a tidal volume of 500 rate of 20, and FiO2 of 40% and a PEEP of 5 and a blood gas showed a pH of 7.47 with a pCO2 of 32 and pO2 of 147. Chest x-ray showed stable findings of breath the pleural effusion. Nevertheless, the patient was achieving a good negative fluid balance. He was quite successful mechanical ventilator. I give him a sedation holiday. Dis continue the propofol and following that the patient woke up initially was very drowsy and is the day went by, he became progressively more awake and alert. Was found to more awake, the patient had a weaning parameters that showed a tidal volumes ranging between 450 and 550 with a vital capacity of 951 and a minute ventilation of 13 with a rapid shallow breathing index of 50. Accordingly, the patient was given a spontaneous breathing trial with a pressure support of 5 and a PEEP of 5 and following that he became uncomfortable, restless, tachypneic and he went into atrial fibrillation. The child was called and the patient was placed back on low-dose sedation with propofol time micrograms per KG per minute. No fever. No chills. The patient is diuresing and the patient is achieving a negative fluid balance. He is receiving his tube feeds and is tolerating this without any major difficulties. He remains on a combination of cefepime and vancomycin as broad-spectrum antibiotic coverage. He remains on diuretics and the patient is receiving IV Lasix 40 mg every 12 hours. We'll hope to achieve a negative fluid balance over the next 24 hours. Blood pressure is being supported with a low dose of norepinephrine infusion. On 03/31/2019, the patient was taken off sedation and he did very well to the point where he stayed awake and alert and he was able to follow commands without any major difficulties. Weaning parameters were checked and the numbers looked adequate. The patient was given a spontaneous breathing trial and following that the patient was extubated to a BiPAP. Currently is on a BiPAP of 10/5 cm of water. Note that the blood gas post spontaneous breathing trial showed a pH of 7.5 with a pCO2 of 35 and pO2 of 148 and this was on a CPAP trial with a pressure support of 5 and a PEEP of 5 and FiO2 of 40%. Chest x-ray is showing some improvement in the volume status. There is still bilateral pleural effusion. The patient was started on a Lasix drip yesterday at a rate of 5 mg an hour. He has been producing excellent urine output. Her net fluid balance of been -2.2 L for now and will going to continue the Lasix to 40 another 24 hours. Edema is approving all 4 extremities. The patient is in a sinus rhythm. The patient is on 2.5 g per minute of norepinephrine infusion. Afebrile. Still on same antibiotic coverage. White cell count is at 85. Hemoglobin was at 8.9. Renal function stable. He was tolerating his tube feeds earlier and tube feeds were discontinued as the patient was extubated to BiPAP. On 04/01/2019 the patient remains extubated doing well awake and alert and interactive. Following commands and answering questions. Swallow evaluation was done and the patient passed and the patient is provided a diet. He was on Lasix drip and he was urinating adequately and the chest from today shows a moderate-sized bilateral pleural effusion. No cough. No sputum production. No fever. The patient is in normal sinus rhythm. He is on few mics of norepinephrine infusion for blood pressure control. No other significant events overnight. His white cell count is at 76. Hemoglobin is at 9.1. Renal function stable with a creatinine of 1.0. The patient is off vancomycin. He is off Flagyl. He is only on IV cefepime for now. On 04/02/2019, patient is doing extremely well. Awake and alert. No respiratory distress. Chest x-ray shows a small left-sided pleural effusion and small right-sided pleural effusion is also present. He is on 2 L of oxygen by nasal cannula. He is on IV cefepime. He is on IV Lasix. No fever. No chills. Tolerating his diet. He is on 2 g per minute of norepinephrine infusion which should be weaned off problems today. Meanwhile, the patient is doing extremely well as is recovering from his acute respiratory failure. On 04/03/2019, the patient is on room air oxygen. The chest x-ray from today showing small to moderate-sized bilateral pleural effusion unchanged compared to yesterday. He is still requiring pressors on a minimal dose and earlier this morning the leaflet infusion was discontinued. The patient's is currently receiving daily Lasix dose at a dose of 40 mg once a day. His cardiac rhythm is sinus. He is on oral amiodarone. He is tolerating his diet. He had a Bowel movement. He is using incentive spirometer. Gradually getting stronger. I think is reasonable to assume that the patient can be transferred to a medical floor. On 04/04/2019 patient seen in follow-up on medical surgical floor. He is awake and alert,room air pulse ox is 93%, hemodynamically stable, afebrile. All culture data remains negative thus far, patient remains on cefepime. Clinically patient is very stable, denies any specific complaints, denies any shortness of breath. He is working on the incentive spirometer he is achieving 750 mL. Lung sounds are diminished at the bases, he remains on IV Lasix currently at 40 mg daily. Yesterday's chest x-ray showed left lower lobe infiltrates and or small left pleural effusion, and developing a right lower lobe infiltrate hemody namically related to atelectasis possibility of a pneumonia is not excluded. today's labs have been reviewed, serum sodium is 137, potassium is 3.9, chloride is 103, CO2 is 30, BUN is 35, creatinine is 0.93. appetite is good, no nausea or vomiting, she is passing bowel movements. On 04/05/2019 patient seen in follow-up on medical surgical floor. He sitting up in the recliner, in no acute distress, he is on room air, denies any dyspnea, denies any chest pain, denies any cough or congestion. Room air pulse ox is 95%, no fever or chills, no new labs a chest x-rays today, no acute events overnight, lung sounds are positive for a few scattered rhonchi, no wheezing. Patient has been working with physical therapy, he is being discharged to subacute rehab today. He remains on oral Lasix, oral anticoagulation in the form of Eliquis for atrial fibrillation, he completed his antibiotics. Has been tolerating oral diet, and passing bowel movements Objective - Vital Signs Vital signs: Vital Signs Temp 97.7 F 04/05/19 08:00 Pulse 84 04/05/19 08:40 Resp 16 04/05/19 08:00 BP 111/61 04/05/19 08:00 Pulse Ox 95 04/05/19 08:00 Intake & Output 04/04/19 04/05/19 04/05/19 18:59 06:59 18:59 Intake Total 400 120 Output Total 350 Balance 50 120 Weight 79.9 kg Intake: IV 20 Sodium Chloride 0.9% 1, 20 000 ml @ 5 mls/hr IV . Q24H [facility] Rx#:[id number] Intake, IV Titration 100 Amount Cefepime 2 gm In Sodium 100 Chloride 0.9% 100 ml @ 200 mls/hr IVPB Q12HR [facility] Rx#:[id number] Oral 400 Output: Urine 350 Other: Voiding Method Urinal # Voids 2 2 # Bowel Movements 1 ABP, PAP, CO, CI - Last Documented Arterial Blood Pressure 114/46 - Exam GENERAL EXAM: Alert,very pleasant 78-year-old white male, on room air pulse ox of 93%, comfortable in no apparent distress. HEAD: Normocephalic/atraumatic. EYES: Normal reaction of pupils, equal size. Conjunctiva pink, sclera white. NOSE: Clear with pink turbinates. THROAT: No erythema or exudates. NECK: No masses, no JVD, no thyroid enlargement, no adenopathy. CHEST: No chest wall deformity. Symmetrical expansion. LUNGS: Equal air entry with no crackles, wheeze, rhonchi or dullness, diminished breath sounds at the bases CVS: Regular rate and rhythm, normal S1 and S2, no gallops, no murmurs, no rubs ABDOMEN: Soft, nontender. No hepatosplenomegaly, normal bowel sounds, no guarding or rigidity. EXTREMITIES: No clubbing, no edema, no cyanosis, 2+ pulses and upper and lower extremities. MUSCULOSKELETAL: Muscle strength and tone normal. SPINE: No scoliosis or deformity SKIN: No rashes CENTRAL NERVOUS SYSTEM: Alert and oriented -3. No focal deficits, tone is normal in all 4 extremities. PSYCHIATRIC: Alert and oriented -3. Appropriate affect. Intact judgment and insight. - Labs CBC & Chem 7: 04/03/19 07:00 04/04/19 07:51 Labs: Abnormal Lab Results - Last 24 Hours (Table) 04/03/19 04/04/19 04/04/19 Range/Units 06:49 16:54 20:04 POC Glucose (mg/dL) 101 H 110 H 105 H (75-99) mg/dL 04/05/19 04/05/19 Range/Units 06:39 11:56 POC Glucose (mg/dL) 109 H 131 H (75-99) mg/dL Assessment and Plan Plan: 1 shock with profound hypotension currently on pressors. Clinically improved. no vasopressors currently 2 acute hypoxic respiratory failure , improved and currently the patient is extubated on room air oxygen. His chest x-ray showing small to moderate-sized bilateral pleural effusion. The effusion is a much improved compared to yesterday. The patient is receiving daily Lasix doses. 3 acute non-ST segment elevation myocardial infarction, recovered 4 CHF ischemic in nature with ejection fraction of 35% and segmental wall motion abnormalities. 5 paroxysmal atrial fibrillation, current rhythm is sinus. The patient is controlled rate and he is on long-term antibiotic ventilation with Eliquis. 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 7 hematologic abnormalities with an abnormal hematologic profile consistent with CLL. The patient has lymphocytosis, thrombocytopenia and anemia. The patient's counts have been stable. The white cell count remains elevated essentially lymphocytosis in addition to a stable hemoglobin is stable platelet count. 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 He is being discharged to subacute rehab today, he completed his antibiotics, a ll cultures have been negative. No acute events overnight. Stable for discharge to rehab today I performed a history & physical examination of the patient and discussed their management with my nurse practitioner, Rita García. I reviewed the nurse practitioner's note and agree with the documented findings and plan of care. Lung sounds are positive for diminished breath sounds at the bases. The findings and the impression was discussed with the patient. I attest to the documentation by the nurse practitioner. Time with Patient: Less than 30
--- NOTE | 2019-04-05 13:10 | P.PN ---
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 He follows in the office with Dr. Galeano. Catheterization in 1997 revealed a 50% lesion in the mid LAD, 100% occlusion of the diagonal branch and 80% ostial diag #2 lesion. He is seen and examined on the medical floor. He is resting comfortably in bed in no acute distress. He denies shortness of breath, chest pain, dizziness or palpitations. Blood pressure 111/61 heart rate 84 afebrile and maintaining oxygen saturation on room air. Probable discharge to rehab today. GENERAL: Well-appearing, well-nourished and in no acute distress. NECK: Supple without JVD or thyromegaly. LUNGS: Scattered rhonchi on the right no wheezes or rales, clear on the left. Respiration equal and unlabored. Diminished bilaterally. HEART: Regular rate and rhythm with systolic ejection murmur at the base, no rubs or gallops. S1 and S2 heard. EXTREMITIES: Normal range of motion, no edema. No clubbing or cyanosis. Peripheral pulses intact. ASSESSMENT Acute respiratory failure secondary to sepsis and shock requiring mechanical ventilation and pressors. Acute [id number] myocardial infarction Ischemic cardiomyopathy Paroxysmal atrial fibrillation on usp anti-coagulation Severe anemia, improved. Leukocytosis Aortic stenosis, mild. Mean gradient 16 mmHg PLAN Not currently on MARIELEL or ARB due to profound hyotension requiring pressors. Blood pressures still borderline. Will consider adding as an outpatient. Continue current medical regimen. Stable for discharge from a cardiac perspective. Nurse Practitioner note has been reviewed, I agree with a documented findings and plan of care. Patient was seen and examined. Objective - Vital Signs Vital signs: Vital Signs Temp 97.7 F 04/05/19 08:00 Pulse 84 04/05/19 08:40 Resp 16 04/05/19 08:00 BP 111/61 04/05/19 08:00 Pulse Ox 95 04/05/19 08:00 Intake & Output 04/04/19 04/05/19 04/05/19 18:59 06:59 18:59 Intake Total 400 120 Output Total 350 Balance 50 120 Weight 79.9 kg Intake: IV 20 Sodium Chloride 0.9% 1, 20 000 ml @ 5 mls/hr IV . Q24H [facility] Rx#:[id number] Intake, IV Titration 100 Amount Cefepime 2 gm In Sodium 100 Chloride 0.9% 100 ml @ 200 mls/hr IVPB Q12HR [facility] Rx#:[id number] Oral 400 Output: Urine 350 Other: Voiding Method Urinal # Voids 2 2 # Bowel Movements 1 ABP, PAP, CO, CI - Last Documented Arterial Blood Pressure 114/46 - Labs CBC & Chem 7: 04/03/19 07:00 04/04/19 07:51 Labs: Abnormal Lab Results - Last 24 Hours (Table) 04/03/19 04/04/19 04/04/19 Range/Units 06:49 11:33 16:54 POC Glucose (mg/dL) 101 H 125 H 110 H (75-99) mg/dL 04/04/19 04/05/19 Range/Units 20:04 06:39 POC Glucose (mg/dL) 105 H 109 H (75-99) mg/dL
[2019-04-05] MEDS: SODIUM CHLORIDE 0.9% 1,000 ML IV SCH (14:57)
--- NOTE | 2019-04-05 17:15 | P.PN ---
Subjective Progress Note Date: 04/05/19 Principal diagnosis: Cardiopulmonary arrest, acute VT, Enlarging abdominal mass In follow-up today patient is doing well. He continues to work with his incentive spirometry, he denies any abdominal pain, he is tolerating oral intake, no nausea or vomiting, he has ambulated back and forth to the bathroom, he has had a bowel movement Objective - Vital Signs Vital signs: Vital Signs Temp 97.7 F 04/05/19 08:00 Pulse 84 04/05/19 08:40 Resp 16 04/05/19 08:00 BP 111/61 04/05/19 08:00 Pulse Ox 95 04/05/19 08:00 Intake & Output 04/04/19 04/05/19 04/05/19 18:59 06:59 18:59 Intake Total 400 120 500 Output Total 350 Balance 50 120 500 Weight 79.9 kg Intake: IV 20 Sodium Chloride 0.9% 1, 20 000 ml @ 5 mls/hr IV . Q24H [facility] Rx#:[id number] Intake, IV Titration 100 Amount Cefepime 2 gm In Sodium 100 Chloride 0.9% 100 ml @ 200 mls/hr IVPB Q12HR [facility] Rx#:[id number] Oral 400 500 Output: Urine 350 Other: Voiding Method Urinal # Voids 2 2 5 # Bowel Movements 1 ABP, PAP, CO, CI - Last Documented Arterial Blood Pressure 114/46 - Exam Well-developed, well-nourished male, sitting up in bed, no acute distress, alert and oriented 4, no swelling in the lower extremities, respirations are even and unlabored, radial pulses are palpable 2+. - Labs CBC & Chem 7: 04/03/19 07:00 04/04/19 07:51 Labs: Abnormal Lab Results - Last 24 Hours (Table) 04/03/19 04/04/19 04/05/19 Range/Units 06:49 20:04 06:39 POC Glucose (mg/dL) 101 H 105 H 109 H (75-99) mg/dL 04/05/19 Range/Units 11:56 POC Glucose (mg/dL) 131 H (75-99) mg/dL Assessment and Plan (1) Acute non-ST elevation myocardial infarction (NSTEMI) Narrative/Plan: Medical management per Cardiology. Status: Acute Priority: High Code(s): I21.4 - NON-ST ELEVATION (NSTEMI) MYOCARDIAL INFARCTION SNOMED Code(s): 762279832 (2) Elevated troponin Status: Acute Priority: High Code(s): R79.89 - OTHER SPECIFIED ABNORMAL FINDINGS OF BLOOD CHEMISTRY SNOMED Code(s): 887874429 (3) Leukocytosis Narrative/Plan: Stable and significantly improved. Still lymphocyte count is elevated, consistent with patient's previous history Status: Acute Priority: Medium Code(s): D72.829 - ELEVATED WHITE BLOOD CELL COUNT, UNSPECIFIED SNOMED Code(s): 517937180 (4) Hypogammaglobulinemia Narrative/Plan: He is status post an infusion of IVIG. Status: Acute Priority: High Code(s): D80.1 - NONFAMILIAL HYPOGAMMAGLOBULINEMIA SNOMED Code(s): 918003994 Plan: Patient is on anticoagulation for new onset arrhythmia. Patient is also on aspirin. With patient's improvement in symptoms (decreased white count, decreased pain suspected from adenopathy) plan is to hold the biopsy and schedule outpatient. We'll request labs weekly while he is in extended care facility with a follow-up appointment with Dr. Hernandez 1 week after discharge. If patient remains stable there may not be a need for biopsy. I did write down these things for patient to communicate to his family. Patient is highly motivated to rehabilitate.
--- NOTE | 2019-04-06 01:19 | P.PN ---
Subjective Progress Note Date: 04/05/19 Principal diagnosis: pneumonia Patient initially admitted hospital with abdominal pain in this patient did have significant increase in size of abdominal lymphadenopathy and possible component of diverticulitis patient was transferred to the ICU because of hypotension , morning of 03/26/2019 the patient did have significant change in his clinical condition and the patient ripped off his IV and leads subsequently did have significant drop in the blood pressure and respiratory distress patient ended up getting intubated on 03/26/2019. On today's evaluation that is 04/05/2019, the patient denies any fever or chills, the patient is breathing comfortably on room air, the patient denies having any chest pain or shortness of breath, the patient with occasional cough but not sputum the patient denies nausea no vomiting no abdominal pain and no diarrhea Objective - Vital Signs Vital signs: Vital Signs Temp 97.7 F 04/05/19 08:00 Pulse 84 04/05/19 08:40 Resp 16 04/05/19 08:00 BP 111/61 04/05/19 08:00 Pulse Ox 95 04/05/19 08:00 Intake & Output 04/04/19 04/05/19 04/05/19 18:59 06:59 18:59 Intake Total 400 120 Output Total 350 Balance 50 120 Weight 79.9 kg Intake: IV 20 Sodium Chloride 0.9% 1, 20 000 ml @ 5 mls/hr IV . Q24H [facility] Rx#:[id number] Intake, IV Titration 100 Amount Cefepime 2 gm In Sodium 100 Chloride 0.9% 100 ml @ 200 mls/hr IVPB Q12HR [facility] Rx#:[id number] Oral 400 Output: Urine 350 Other: Voiding Method Urinal # Voids 2 2 # Bowel Movements 1 ABP, PAP, CO, CI - Last Documented Arterial Blood Pressure 114/46 - Exam GENERAL DESCRIPTION: The patient awake alert and in no distress HEENT: [Oral mucosa dry] EYES : [pallor or scleral icterus] RESPIRATORY SYSTEM: [Unlabored breathing decreased breath sound at the base] CARDIA VASCULAR SYSTEM: [S1-S2 regular rate and rhythm no murmur] GI: [Abdominal soft there's no tenderness no organomegaly] EXTREMITIES: [No edema feet] - Labs CBC & Chem 7: 04/03/19 07:00 04/04/19 07:51 Labs: Abnormal Lab Results - Last 24 Hours (Table) 04/03/19 04/04/19 04/04/19 Range/Units 06:49 16:54 20:04 POC Glucose (mg/dL) 101 H 110 H 105 H (75-99) mg/dL 04/05/19 Range/Units 06:39 POC Glucose (mg/dL) 109 H (75-99) mg/dL Assessment and Plan Assessment: 1-patient admitted to the hospital with abdominal pain with concern for abdomi nal ischemia from a large intra-abdominal masses/lymphadenopathy adequately treated, now with evidence of worsening finding on the chest x-ray possible atelectasis and a question of pneumonia Plan: 1-the patient has been advised to continue with incentive spirometry every hour on the hour 2--antibiotics will be switched over to Ceftin 500 mg twice a day for about 5-7 days to finish a course of therapy Time with Patient: Less than 30
--- NOTE | 2019-04-07 06:41 | CDI ---
Documentation Clarification Form Date: 04/07/19 From: Edson Jefferson Phone: call to [phone] Admit Date: 03/23/2019 8:08:00 AM Patient Name: Alexy Lee Visit Number: [id number] Discharge Date: 04/05/2019 4:04:00 PM ATTENTION: The Clinical Documentation Specialists (CDI) and [facility] Coding Staff appreciate your assistance in clarifying documentation. Please respond to the clarification below the line at the bottom and electronically sign. The CDI & [facility] Coding staff will review the response and follow-up if needed. Please note: Queries are made part of the Legal Health Record. If you have any questions, please contact the author of this message via ITS. Dr. Riri Deng Shock is documented in the All progress notes. In Discharge summary stated as "shock of multifactorial etiology secondary to cardiogenic superimposed septic shock due to possible diverticulitis and pneumonia". Patient history/risk factors: sepsis, ARF, Volume depletion. Clinical Indicators: Lactate 2.6,3.7 Vitals:pulse 92 RR 22 Treatment: Broad- spectrum Antibiotics, Iv Bolus, Mech ventilation. In your professional opinion, can you please specify the type of shock if known? Septic Shock Suspected or known causative organism Any associated organ failure Cardiogenic Shock Cause Hypovolemic Shock Cause Other, please specify Unable to determine Likely Cardiogenic shock due to NSTEMI MTDD
== END 2019-04-05 16:04 | DRG 871 ==
LOC: EC 05:10 → 3NMEDONC 08:08 → 2SICU 03-25 17:06 → 4SSUR 04-03 23:01
PROVIDERS: ADMIT Family Medicine; ATTEND Family Medicine
PROC: 30233N1 Transfusion of Nonautologous Red Blood Cells into Peripheral Vein, Percutaneous Approach (ICD-10-PCS; 2019-03-24)
PROC: 05HN33Z Insertion of Infusion Device into Left Internal Jugular Vein, Percutaneous Approach (ICD-10-PCS; principal; 2019-03-26)
PROC: 03HB33Z Insertion of Infusion Device into Right Radial Artery, Percutaneous Approach (ICD-10-PCS; 2019-03-26)
PROC: 5A1935Z Respiratory Ventilation, Less than 24 Consecutive Hours (ICD-10-PCS; 2019-03-31)
PROC: 5A1945Z Respiratory Ventilation, 24-96 Consecutive Hours (ICD-10-PCS; 2019-03-31)
DX: A41.9 Sepsis, unspecified organism (principal); I50.23 Acute on chronic systolic (congestive) heart failure; J18.9 Pneumonia, unspecified organism; J96.01 Acute respiratory failure with hypoxia; I21.4 Non-ST elevation (NSTEMI) myocardial infarction; R57.0 Cardiogenic shock; C91.10 Chronic lymphocytic leukemia of B-cell type not having achieved remission; D80.1 Nonfamilial hypogammaglobulinemia; E87.4 Mixed disorder of acid-base balance; J44.0 Chronic obstructive pulmonary disease with (acute) lower respiratory infection; J44.1 Chronic obstructive pulmonary disease with (acute) exacerbation; J98.11 Atelectasis; K57.32 Diverticulitis of large intestine without perforation or abscess without bleeding; D64.9 Anemia, unspecified; D69.6 Thrombocytopenia, unspecified; E78.5 Hyperlipidemia, unspecified; E86.0 Dehydration; I11.0 Hypertensive heart disease with heart failure; I25.10 Atherosclerotic heart disease of native coronary artery without angina pectoris; I25.5 Ischemic cardiomyopathy; I35.0 Nonrheumatic aortic (valve) stenosis; I48.0 Paroxysmal atrial fibrillation; K59.00 Constipation, unspecified; K66.9 Disorder of peritoneum, unspecified; Z96.1 Presence of intraocular lens; Y95 Nosocomial condition; Z79.01 Long term (current) use of anticoagulants; Z79.82 Long term (current) use of aspirin; Z79.899 Other long term (current) drug therapy; Z82.49 Family history of ischemic heart disease and other diseases of the circulatory system; Z85.828 Personal history of other malignant neoplasm of skin; Z85.72 Personal history of non-Hodgkin lymphomas; Z86.73 Personal history of transient ischemic attack (TIA), and cerebral infarction without residual deficits; Z87.891 Personal history of nicotine dependence; Z87.01 Personal history of pneumonia (recurrent); Z90.89 Acquired absence of other organs; Z90.49 Acquired absence of other specified parts of digestive tract
CPT/HCPCS: 36415; 36600; 71045; 71046; 74176; 80048; 80053; 80202; 81001; 81003; 82150; 82330; 82550; 82553; 82784; 82805; 83010; 83605; 83615; 83690; 83735; 84100; 84132; 84145; 84484; 84550; 85025; 85045; 85610; 85730; 86850; 86900; 86901; 86902; 86920; 87040; 87070; 87086; 87205; 93005; 93306; 93308; 94002; 94003; 94640; 94660; 96361; 96374; 96375; 96376; 99285

== ENCOUNTER 2019-05-25 08:50 | Day surgery (SDC) | payer MEDICARE, BC ==
[2019-05-25 09:32] VITALS: TEMP 97.3
[2019-05-25 09:33] LABS: Mean Platelet Volume 7.3; Platelet Count 181 k/uL (150-450)
[2019-05-25 09:38] LABS: INR 0.9 (<1.2)
[2019-05-25 10:37] VITALS: RESP 16
[2019-05-25 10:38] VITALS: BP 148/76; PULSE 81
--- NOTE | 2019-05-25 12:26 | US ---
EXAMINATION TYPE: US biopsy lymph node DATE OF EXAM: 05/25/2019 HISTORY: Abdominal lymphadenopathy. FINDINGS: Maximal barrier technique was utilized. The skin overlying a suitable path to the patient' s right lower quadrant adenopathy was localized with ultrasound and the overlying skin prepped and dr moon. Ultrasound was utilized with sterile technique. Lidocaine was used for local anesthesia. A s kin aleida was made with a scalpel. An 18-gauge needle was advanced under direct ultrasound guidance a nd core specimen obtained of an enlarged node comment additional pass was made for pathology. Specim ens submitted in formalin to Pathology. Following the procedure, hemostasis achieved and the patient is discharged in stable condition without complication to observation. IMPRESSION:STATUS POST ULTRASOUND GUIDED CORE BIOPSY OF right lower quadrant abdominal adenopathy, [facility]ERRI THOLOGY IS PENDING. THIS PROCEDURE IS PERFORMED BY THE UNDERSIGNED.
== END 2019-05-25 10:30 | disposition home or self-care (01) ==
LOC: RADPROMAIN 08:50
PROVIDERS: ATTEND Internal Medicine Hematology & Oncology
DX: C91.10 Chronic lymphocytic leukemia of B-cell type not having achieved remission (principal)
CPT/HCPCS: 38505; 76942; 85049; 85610; 88305; 88341; 88342

== ENCOUNTER → 2019-07-17 | Outpatient (CLI) | payer MEDICARE, BC ==
--- NOTE | 2019-07-17 10:33 | XR ---
EXAMINATION TYPE: XR chest 2V DATE OF EXAM: 07/17/2019 COMPARISON: 04/03/2019 HISTORY: Shortness of breath TECHNIQUE: Frontal and lateral views of the chest are obtained. FINDINGS: Scattered senescent parenchymal changes noted. Hyperinflation compatible with COPD. No evidence for infiltrate. No evidence for atelectasis. Heart size is stable. Mediastinal structures are stable and grossly unremarkable. No evidence for hilar prominence. Degenerative changes dorsal spine. IMPRESSION: 1. No evidence for acute pulmonary disease.
== END | disposition home or self-care (01) ==
LOC: RADXRMAIN 10:16
PROVIDERS: ATTEND Pediatrics Pediatric Allergy/Immunology
DX: J45.909 Unspecified asthma, uncomplicated (principal)
CPT/HCPCS: 71046

== ENCOUNTER → 2019-11-17 | Outpatient (CLI) | payer MEDICARE, BC ==
[2019-11-17 08:30] LABS: HCT 34.7 % (39.0-53.0); HGB 11.2 gm/dL (13.0-17.5); MCH 30.1 pg (25.0-35.0); MCHC 32.2 g/dL (31.0-37.0); MCV 93.5 fL (80.0-100.0); Platelet Count 188 k/uL (150-450); RBC 3.71 m/uL (4.30-5.90)
[2019-11-17 11:08] LABS: Neutrophils # (M) 7.48 k/uL (1.3-7.7); Neutrophils % (M) 14 %; Nucleated Red Blood Cells 0 /100 WBC (0-0); Total Cells Counted 100
[2019-11-17 11:09] LABS: Poikilocytosis (M) Present
[2019-11-17 11:24] LABS: WBC 53.4 k/uL (3.8-10.6)
[2019-11-17 12:42] LABS: Lymphocytes # (M) 45.92 k/uL (1.0-4.8)
[2019-11-17 15:22] LABS: Immunoglobulin A <25.5 mg/dL (60.0-350.0); Immunoglobulin M 37.4 mg/dL (40.0-280.0)
== END | disposition home or self-care (01) ==
LOC: LABWHC1 06:57
PROVIDERS: ATTEND Pediatrics Pediatric Allergy/Immunology
DX: J44.9 Chronic obstructive pulmonary disease, unspecified (principal); D89.9 Disorder involving the immune mechanism, unspecified
CPT/HCPCS: 36415; 82784; 85025; 86317

== ENCOUNTER → 2019-11-23 | Outpatient (CLI) | payer MEDICARE, BC ==
[2019-11-23 19:58] LABS: African American GFR (CKD) 65.3 (60.0-200.0); Albumin 3.9 g/dL (3.80-4.90); Albumin/Globulin Ratio 4.33 (1.60-3.17); Anion Gap 9.8 mmol/L (4.00-12.00); BUN/Creat Ratio 15.83 Ratio (12.00-20.00); Calcium 8.7 mg/dL (8.7-10.3); Carbon Dioxide 25.2 mmol/L (21.6-31.8); Globulin 0.9 g/dL (1.6-3.3); Non-African American GFR(CKD) 56.4 (60.0-200.0); Potassium 3.7 mmol/L (3.5-5.5); Total Bilirubin 0.5 mg/dL (0.2-1.2); Total Protein 4.8 g/dL (6.2-8.2)
[2019-11-29 15:36] LABS: S.pneumoniae Serotype 10A (34) 0.5 mcg/mL (>=2.9); S.pneumoniae Serotype 12F (12) <0.4 mcg/mL (>=0.6); S.pneumoniae Serotype 14 (14) 0.5 mcg/mL (>=7.0); S.pneumoniae Serotype 15B (54) 0.7 mcg/mL (>=3.3); S.pneumoniae Serotype 18C (56) <0.4 mcg/mL (>=3.3); S.pneumoniae Serotype 19A (57) 0.8 mcg/mL (>=17.1); S.pneumoniae Serotype 19F (19) 1.5 mcg/mL (>=15.0); S.pneumoniae Serotype 20 (20) <0.4 mcg/mL (>=1.3); S.pneumoniae Serotype 22F (22) 3.2 mcg/mL (>=7.2); S.pneumoniae Serotype 23F (23) 4.5 mcg/mL (>=8.0); S.pneumoniae Serotype 3 (3) <0.4 mcg/mL (>=1.8); S.pneumoniae Serotype 4 (4) <0.4 mcg/mL (>=0.6); S.pneumoniae Serotype 5 (5) 0.6 mcg/mL (>=10.7); S.pneumoniae Serotype 6B (26) 0.4 mcg/mL (>=4.7); S.pneumoniae Serotype 7F (51) 0.7 mcg/mL (>=3.2); S.pneumoniae Serotype 8 (8) <0.4 mcg/mL (>=2.9); S.pneumoniae Serotype 9N (9) <0.4 mcg/mL (>=9.2)
== END | disposition home or self-care (01) ==
LOC: LABWHC1 14:36
PROVIDERS: ATTEND Pediatrics Pediatric Allergy/Immunology
DX: C91.10 Chronic lymphocytic leukemia of B-cell type not having achieved remission (principal); D83.9 Common variable immunodeficiency, unspecified
CPT/HCPCS: 36415; 80053; 86003; 86317

== ENCOUNTER → 2020-01-29 | Outpatient (CLI) | payer MEDICARE, BC ==
--- NOTE | 2020-01-29 12:59 | CT ---
EXAMINATION TYPE: CT abdomen w con DATE OF EXAM: 01/29/2020 COMPARISON: 01/01/2020 and 03/23/2019 HISTORY: 79-year-old male Abnormal liver function TECHNIQUE: Contiguous axial scanning of the abdomen following administration of 100 ml Isovue 300 IV contrast. Delayed images through the kidneys and coronal/sagittal reconstructions performed. CT DLP: 635.5 mGycm Automated exposure control for dose reduction was used. FINDINGS: Heart normal size without pericardial effusion. Extensive three-vessel coronary artery calcifications are present. Aortic valvular calcifications are also noted. Partial visualization of the lower thorax suggests improvement in the previous hilar lymphadenopathy. Small right and trace left pleural effusions are increased from prior. There is patchy airspace dise ase in the basilar right lower lobe and peribronchial vascular thickening left lower lobe. New mild abdominal pelvic ascites and generalized anasarca change. Tiny 5 mm hypodensities right liver lobe too small for accurate CT characterization were present on , probable tiny cysts. Portal venous system is patent. No biliary ductal dilatation. Layering gallstones. No abnormal gallbladder distention. Adrenal glands, left kidney, spleen appear within normal limits. Exophytic 3.4 cm cyst posterior righ t kidney is unchanged. Peripancreatic edema likely relating to the anasarca changes. Significant interval improvement in the bulky mesenteric lymphadenopathy. Individual lymph nodes are now visualized measuring up to 4.9 x 2.7 cm rather than the conglomerate [place] mass. Additional improvement in the conglomerate retroperitoneal lymphadenopathy encasing the aorta. This m easures 11.4 cm wide by 8.9 cm AP versus 16.2 x 12.1 cm, previously. No dilated small bowel or free air. Mild to moderate stool burden. Partially visualized sigmoid diverticulosis. Given the extensive anasa rca changes and free fluid, difficult to exclude any inflammatory changes along the visualized sigmoi d colon. Pelvis not imaged. Bones: Moderate to advanced degenerative disc disease mid to lower lumbar spine with a facet arthropa thy. Similar inferior endplate deformity of L1 as compared to 01/01/2020. IMPRESSION: 1. NEW MARKED DIFFUSE ANASARCA CHANGE, MILD ASCITES, AND SMALL RIGHT WITH TRACE LEFT PLEURAL EFFUSION S. CORRELATE FOR FLUID OVERLOAD STATE. 2. PROMINENT EDEMA AROUND THE PANCREAS LIKELY RELATES TO THE ANASARCA CHANGE. CORRELATE WITH AMYLASE AND LIPASE LEVELS TO EXCLUDE THE POSSIBILITY OF ACUTE PANCREATITIS. 3. SIGMOID DIVERTICULOSIS. SIMILARLY, FLUID AND STRANDING ALONG THE SIGMOID COLON LIKELY RELATES TO T HE ANASARCA CHANGE RATHER THAN ACUTE DIVERTICULITIS. CLINICALLY CORRELATE. 4. BULKY MESENTERIC LYMPHADENOPATHY SHOWS SOME IMPROVEMENT. INDIVIDUAL LYMPH NODES ARE NOW VISIBLE, L ARGEST MEASURING 4.9 X 2.7 CM. 5. SOME IMPROVEMENT IN MATTED RETROPERITONEAL LYMPHADENOPATHY WELL, CURRENTLY MEASURING 11.4 X 8.9 CM VERSUS 16.2 X 12.1 CM, PREVIOUSLY. 6. BASILAR RIGHT LOWER LOBE OPACITY. PNEUMONIA NOT EXCLUDED. 7. CHOLELITHIASIS. CAD. AORTIC VALVULAR CALCIFICATIONS.
== END | disposition home or self-care (01) ==
LOC: RADCTMAIN 11:13
PROVIDERS: ATTEND Internal Medicine Hematology & Oncology
DX: R18.8 Other ascites (principal); K57.30 Diverticulosis of large intestine without perforation or abscess without bleeding; K80.20 Calculus of gallbladder without cholecystitis without obstruction; R59.0 Localized enlarged lymph nodes; R94.5 Abnormal results of liver function studies
CPT/HCPCS: 74160; Q9967

== ENCOUNTER → 2020-08-27 | Outpatient (CLI) | payer MEDICARE, BC ==
--- NOTE | 2020-08-27 11:59 | CT ---
EXAMINATION TYPE: CT ChestAbdPelvis w con DATE OF EXAM: 08/27/2020 COMPARISON: Most recent CT of January 01, 2020 and older studies. PET/CT April 02, 2018 HISTORY: chronic lymphocytic lymphoma CT DLP: 1322 mGycm. Automated Exposure Control for Dose Reduction was Utilized. CONTRAST: CT scan of the thorax, abdomen and pelvis is performed with oral and with IV Contrast, patient inject ed with 80 mL of Isovue 300. FINDINGS: LUNGS: Mild to moderate bibasilar linear scarring and/or atelectasis. No suspicious nodules or masses . No pleural effusion or pneumothorax. MEDIASTINUM: There are no greater than 1 cm hilar or mediastinal lymph nodes on current study. Marke d interval improvement from most recent CT January 01. No cardiomegaly or pericardial effusion is se en. Coronary artery calcification and/or stents are redemonstrated. OTHER: Interval marked improvement of abnormal bilateral axillary adenopathy with few subcentimeter l ymph nodes, for reference left axillary lymph node measures 9 x 9 mm axial image 13 there is largest identified lymph node on current study. Marked interval improvement in supraclavicular adenopathy. LIVER/GB: Small dependent gallstones in the gallbladder redemonstrated. PANCREAS: Visualization of the pancreatic duct proximal body for reference coronal image 39. There is 10 x 9 mm hypodense lesion anterior pancreatic body/head axial image 62 of uncertain etiology possib le pseudocyst. SPLEEN: Spleen now measures normal in size, improved from most recent prior. ADRENALS: No significant abnormality is seen. KIDNEYS: Symmetric cortical medullary uptake and excretion without hydronephrosis seen currently. Sta ble thin-walled exophytic 3.2 cm cyst posteriorly midpole right kidney. BOWEL: Or contrast reaches level of proximal transverse colon. Low-lying cecum and right pelvis. No s uspicious small or large bowel dilatation. Diverticula in the left and sigmoid colon without CT evide nce for acute diverticulitis. GENITAL ORGANS: Enlarged prostate gland consistent with BPH. LYMPH NODES: Marked improvement in abnormal intra-abdominal or retroperitoneal adenopathy extending i nto the pelvis and bilateral groin region. Some persistent ill-defined fluid and fat stranding along with some nonenlarged mesenteric and retroperitoneal lymph nodes are redemonstrated. No suspicious re sidual lymph node left para-aortic region measures 3.6 x 2.3 cm with some residual heterogeneous post contrast enhancement. No persistent greater than 1 cm pelvic or groin adenopathy. OSSEOUS STRUCTURES: Moderate disc space narrowing L4-L5 and L5-S1 levels. Moderate axial joint space loss both hips. OTHER: Moderate calcified plaque of the abdominal aorta extends into branch vessels. Small to moderat e-sized fat-containing left inguinal hernia. IMPRESSION: Significant positive treatment response since most recent CT with marked improvement in a denopathy above and below diaphragm.
== END | disposition home or self-care (01) ==
LOC: RADCTMAIN 09:31
PROVIDERS: ATTEND Internal Medicine Hematology & Oncology
DX: C91.10 Chronic lymphocytic leukemia of B-cell type not having achieved remission (principal)
CPT/HCPCS: 82565; 84520; 71260; 74177; 36415; Q9967

== ENCOUNTER → 2021-03-03 | Outpatient (CLI) | payer MEDICARE, BC ==
--- NOTE | 2021-03-03 15:16 | CT ---
EXAMINATION TYPE: CT ChestAbdPelvis w con DATE OF EXAM: 03/03/2021 COMPARISON: Most recent CT August 27, 2020 and older studies. HISTORY: Chronic lymphocytic leukemia progress study. CT DLP: 1362.4 mGycm. Automated Exposure Control for Dose Reduction was Utilized. CONTRAST: CT scan of the thorax, abdomen and pelvis is performed with oral and with IV Contrast, patient inject ed with 100 mL of Isovue 300. FINDINGS: LUNGS: Mild to moderate bibasilar linear scarring and/or atelectasis. No suspicious nodules or masses . No pleural effusion or pneumothorax seen bilaterally. Mild central peribronchial wall thickening re demonstrated. MEDIASTINUM: There are no new greater than 1 cm hilar or mediastinal lymph nodes. No cardiomegaly o r pericardial effusion is seen. Moderate to severe three-vessel coronary artery calcification and/or stents. Other: No recurrent abnormal rate of the 1 cm axillary adenopathy. LIVER/GB: Small dependent calcified gallstones. There are 2 tiny hypodense subcentimeter lesions righ t hepatic lobe image 52 and 62 posteriorly redemonstrated small to further characterize presumed jun gn. PANCREAS: Visualization of the pancreatic duct proximal body for reference coronal image 41. There is stable 10 x 9 mm hypodense lesion anterior pancreatic head axial image 64 of uncertain etiology poss ible pseudocyst. SPLEEN: Spleen remains normal in size, no significant change from most recent prior. ADRENALS: No significant abnormality is seen. KIDNEYS: Symmetric cortical medullary uptake and excretion without hydronephrosis seen currently. Sta ble thin-walled exophytic 3.2 cm cyst posteriorly midpole right kidney axial image 35 series 5. Corti sugar thinning bilaterally redemonstrated. Incidental accessory right renal artery noted. BOWEL: Or contrast reaches level of right colon. Low-lying cecum into the right pelvis is redemonstra gerardo. No suspicious small or large bowel dilatation. Diverticula in the left and sigmoid colon without CT evidence for acute diverticulitis. GENITAL ORGANS: Enlarged prostate gland consistent with BPH is redemonstrated. LYMPH NODES: Persistent abnormal intra-abdominal and retroperitoneal adenopathy . Some persistent but improved ill-defined fluid and fat stranding along with some prominent mesenteric and retroperitonea l lymph nodes are redemonstrated. Mesenteric lymph nodes felt improved from prior. Left periaortic ly mph node measures 4.0 x 2.2 cm, similar in appearance to most recent prior. No pelvic or groin extens ion occurs study. No new greater than 1 cm adenopathy. OSSEOUS STRUCTURES: Moderate disc space narrowing L4-L5 and L5-S1 levels. Moderate axial joint space loss both hips. OTHER: Moderate calcified plaque of the abdominal aorta extends into branch vessels. Small to moderat e-size fat-containing left inguinal hernia. IMPRESSION: Continued slight positive treatment response. Improved mesenteric adenopathy. Improvement and stable retroperitoneal adenopathy. No new or enlarging adenopathy noted.
== END | disposition home or self-care (01) ==
LOC: RADCTMAIN 12:42
PROVIDERS: ATTEND Internal Medicine Hematology & Oncology
DX: C91.10 Chronic lymphocytic leukemia of B-cell type not having achieved remission (principal); R59.0 Localized enlarged lymph nodes
CPT/HCPCS: 82565; 84520; 71260; 74177; 36415; Q9967

== ENCOUNTER → 2022-04-14 | Outpatient (CLI) | payer MEDICARE, BC ==
--- NOTE | 2022-04-14 21:04 | CT ---
EXAMINATION TYPE: CT ChestAbdPelvis w con DATE OF EXAM: 04/14/2022 COMPARISON: CT dated 03/03/2021 HISTORY: Chronic leukemia CT DLP: 2519 mGycm Automated exposure control for dose reduction was used. CONTRAST: CT scan of the chest, abdomen and pelvis is performed with Oral Contrast and with IV Contrast, patien t injected with 70 ml mL of Isovue 300. FINDINGS: LUNGS: Mild bilateral basal pulmonary reticulation and mild fibrotic changes. Respiratory motion wilson facts. Diffuse bronchial wall thickening, probably augmented by incomplete lung expansion. Patent tra alessandra and main bronchi. No pleural effusion. MEDIASTINUM: There are no greater than 1 cm hilar or mediastinal lymph nodes. Slight cardiomegaly. C oronary and arterial atherosclerotic calcifications. No pericardial effusion is seen. OTHER: Prominent axillary fat, seen bilaterally. No aggressive bone lesion. LIVER/GB: Cholelithiasis without evidence of acute cholecystitis. No definite hepatic focal lesion. PANCREAS: Stable 7 mm cystic area at the anterior aspect of the pancreatic head. Slightly atrophic pa ncreas. SPLEEN: No significant abnormality is seen. ADRENALS: No significant abnormality is seen. KIDNEYS: Right simple renal cyst, otherwise unremarkable kidneys. BOWEL: Unremarkable stomach. Small duodenal diverticula. Grossly unremarkable small bowel. Chronic d iverticulosis without evidence of acute diverticulitis. REPRODUCTIVE ORGANS: Enlarged prostate, please correlate with PSA level. Unremarkable seminal vesicle s. The urinary bladder is not completely distended. LYMPH NODES: Stable superior retroperitoneal lymph nodes measuring up to 2.1 cm in short axis diamete r. No other pathologically enlarged or progressive lymphadenopathy in the abdomen or the pelvis. OSSEOUS STRUCTURES: Osteopenia. Degenerative changes of the lumbar spine. No aggressive bone lesion. OTHER: Bilateral fat-containing inguinal hernias, larger on the left side. Extensive arterial atheros clerotic calcifications. No sizable ascites. Root of mesentery fat stranding with subcentimeter mesen teric lymph nodes, improved compared to the previous CT scan, possibly representing mesenteric pannic ulitis versus residual leukemia disease. IMPRESSION: Stable enlarged retroperitoneal lymph nodes with slightly improved mesenteric root lymph nodes and fa t stranding as described above. No evidence of progressive disease seen in the chest, abdomen or the pelvis. Incidental findings as described above.
== END | disposition home or self-care (01) ==
LOC: RADCTMAIN 11:14
PROVIDERS: ATTEND Internal Medicine Hematology & Oncology
DX: C95.10 Chronic leukemia of unspecified cell type not having achieved remission (principal); R59.0 Localized enlarged lymph nodes
CPT/HCPCS: 82565; 84520; 71260; 74177; 36415; Q9967

== ENCOUNTER → 2023-01-20 | Outpatient (CLI) | payer MEDICARE, BC ==
[2023-01-20 18:20] LABS: Albumin 4.1 g/dL (3.8-4.9); Albumin/Globulin Ratio 1.55 (1.60-3.17); Anion Gap 11.9 mmol/L (10.00-18.00); BUN/Creat Ratio 12.39 Ratio (12.00-20.00); Blood Urea Nitrogen 14.5 mg/dL (9.0-27.0); Calcium 9.5 mg/dL (8.7-10.3); Carbon Dioxide 25.8 mmol/L (20.0-27.5); Globulin 2.6 g/dL (1.6-3.3); Non-African American GFR(CKD) 56.9 (60.0-200.0); Potassium 4.1 mmol/L (3.5-5.5); Total Bilirubin 0.8 mg/dL (0.30-1.20); Total Protein 6.7 g/dL (6.2-8.2)
[2023-01-20 18:31] LABS: Immunoglobulin A <50.0 mg/dL (60.0-350.0); Immunoglobulin M <25.0 mg/dL (40.0-280.0)
== END | disposition home or self-care (01) ==
LOC: LABWHC1 11:33
PROVIDERS: ATTEND Pediatrics Pediatric Allergy/Immunology
DX: D89.9 Disorder involving the immune mechanism, unspecified (principal)
CPT/HCPCS: 36415; 80053; 82784

== ENCOUNTER → 2023-03-23 | Outpatient (CLI) | payer MEDICARE, BC ==
--- NOTE | 2023-03-23 12:04 | XR ---
EXAMINATION TYPE: XR chest 2V DATE OF EXAM: 03/23/2023 COMPARISON: 07/17/2019 INDICATION: R05.9 TECHNIQUE: Frontal and lateral views of the chest are obtained. FINDINGS: The heart size is normal. The pulmonary vasculature is normal. The lungs are clear. IMPRESSION: 1. No acute pulmonary process.
== END | disposition home or self-care (01) ==
LOC: RADXRMAIN 11:24
PROVIDERS: ATTEND Pediatrics Pediatric Allergy/Immunology
DX: J30.9 Allergic rhinitis, unspecified (principal); D89.9 Disorder involving the immune mechanism, unspecified; J45.990 Exercise induced bronchospasm
CPT/HCPCS: 71046

== ENCOUNTER → 2023-09-23 | Outpatient (CLI) | payer MEDICARE, BC ==
--- NOTE | 2023-09-23 07:44 | MR ---
EXAMINATION TYPE: MR MRCP DATE OF EXAM: 09/23/2023 6:48 AM CLINICAL INDICATION:Male, 83 years old with history of R19.01 RIGHT UPPER QUADRANT ABDOMINAL SWELLING ; PHH, Right upper quadrant abdominal swelling, Hx leukemia COMPARISON: 08/05/2023 CT, 04/14/2022. TECHNIQUE: Multi planar, T2-weighted imaging with and without fat saturation and chemical shift imag ing was performed of the abdomen. Then, heavily T2 weighted imaging (half-Fourier acquisition single- shot turbo spin-echo) was utilized in order to study the biliary system. Maximum intensity projectio n images were reconstructed from the original data of the biliary tree. 3D images were created on a [employer] work station. No Gadolinium given. FINDINGS: Lower Thorax: No evidence for acute process. The heart is mildly enlarged for size. Left basilar cons olidation changes in the right lower lobe pulmonary nodular not well visualized given CT technique. MRCP: * The intrahepatic ducts mild intrahepatic prominence centrally. * The common bile duct at the level of the pancreatic head measures 5 mm in size. * The common hepatic duct measures 5 mm in size. * The pancreatic duct is normal. * The gallbladder demonstrates multiple layering gallstones. Abdomen: Liver: Scattered high T2 signal probable hepatic cyst. Pancreas: Pancreatic neck cystic lesion high T2 signal with septations measuring 2.3 x 1.6 cm this is stable from 07/28/2023. Additional scattered cystic lesions are also present throughout the parenchym a including a 7 mm pancreatic head and tail lesions. Spleen: Unremarkable. Adrenal glands: Unremarkable. Kidneys: There is a cyst which is high T2 signal posterior to the right kidney. Stomach and Bowel: Unremarkable as visualized. Peritoneum: No evidence of pneumoperitoneum or free fluid. Vasculature: Unremarkable. No aortic aneurysm. Musculoskeletal: The osseous structures appear intact. Lymph Nodes: There is a probable lymph node at the level of the left renal sinus measuring 3.7 x 2.2 cm and more superior medially measuring up to 14 mm Abdominal wall: Unremarkable. IMPRESSION: 1. No definitive evidence for quadrant acute process. 2. No evidence to suggest ductal stricture, choledocholithiasis, or biliary ductal dilatation. 3. Similar lymph nodes in the retroperitoneum near the left renal sinus. 4. Cholelithiasis. 5. 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 Stable from 08/05/2023. Consider short-term follow-up in 6-12 months to en sure stability.
== END | disposition home or self-care (01) ==
LOC: RADMRIMAIN 05:51
PROVIDERS: ATTEND Internal Medicine Hematology & Oncology
DX: C95.90 Leukemia, unspecified not having achieved remission (principal); K80.20 Calculus of gallbladder without cholecystitis without obstruction; K86.89 Other specified diseases of pancreas
CPT/HCPCS: 74181

== ENCOUNTER → 2023-12-13 | Outpatient (CLI) | payer MEDICARE, BC ==
[2023-12-13 10:34] LABS: African American GFR (CKD) 69 (>60 ml/min/1.73 sqM); Blood Urea Nitrogen 14 mg/dL (9-20); Non-African American GFR(CKD) 59 (>60 ml/min/1.73 sqM)
--- NOTE | 2023-12-13 12:09 | CT ---
EXAMINATION TYPE: CT chest w con DATE OF EXAM: 12/13/2023 COMPARISON: 08/05/2023 HISTORY: Pneumonia, hx chronic lymphocytic leukemia CT DLP: 415.90 mGycm Automated exposure control for dose reduction was used. CONTRAST: CT scan of the chest is performed with IV Contrast, patient injected with 80 mL of Isovue 300. FINDINGS: LUNGS: Right lower lobe pulmonary nodule seen previously is significantly smaller in size and measure s 7 mm versus 15 mm previously. Right basilar linear parenchymal scar atelectasis is stable. Addition al parenchymal scarring left lower lobe. Mild lower lobe bronchiectasis. No focal consolidation. MEDIASTINUM: There are no greater than 1 cm hilar or mediastinal lymph nodes. Anterior mediastinal no dule which may reflect a lymph node is slightly larger at 8 mm versus 7 mm previously. Cardiomegaly c oronary artery calcifications and aortic valvular prosthesis. No pericardial effusion is seen. Tho racic aorta is of normal caliber. UPPER ABDOMEN: No significant abnormality appreciated. OTHER: No additional significant abnormality is seen. IMPRESSION: 1. Significant diminution in size right lower lobe pulmonary nodule. Continued annual follow-up is ad vised. 2. Basilar parenchymal scar or atelectasis without evidence of focal consolidation.
== END | disposition home or self-care (01) ==
LOC: RADCTMAIN 09:48
PROVIDERS: ATTEND Internal Medicine Hematology & Oncology
DX: R91.1 Solitary pulmonary nodule (principal); J98.11 Atelectasis; J18.9 Pneumonia, unspecified organism; C91.10 Chronic lymphocytic leukemia of B-cell type not having achieved remission; D80.1 Nonfamilial hypogammaglobulinemia; R19.01 Right upper quadrant abdominal swelling, mass and lump
CPT/HCPCS: 82565; 84520; 71260; 36415; Q9967

== ENCOUNTER → 2024-03-30 | Outpatient (CLI) | payer MEDICARE, BC ==
--- NOTE | 2024-03-30 10:50 | MR ---
EXAMINATION TYPE: MR MRCP DATE OF EXAM: 03/30/2024 10:03 AM CLINICAL INDICATION:Male, 83 years old with history of J84.10 PULMONARY FIBROSIS, UNSPECIFIED, RECHEC K TO SEE IF LEUKEMIA IS GONE COMPARISON: 09/23/2023 TECHNIQUE: Multi planar, T2-weighted imaging with and without fat saturation and chemical shift imag ing was performed of the abdomen. Then, heavily T2 weighted imaging (half-Fourier acquisition single- shot turbo spin-echo) was utilized in order to study the biliary system. Maximum intensity projectio n images were reconstructed from the original data of the biliary tree. 3D images were created on [employer] work station. No Gadolinium given. FINDINGS: Lower Thorax: No evidence for acute process. The heart is mildly enlarged for size. Left basilar cons olidation changes in the right lower lobe pulmonary nodular not well visualized given CT technique. MRCP: * The intrahepatic ducts mild intrahepatic prominence centrally. * The common bile duct at the level of the pancreatic head measures 5 mm in size. * The common hepatic duct measures 5 mm in size. * The pancreatic duct is normal. * The gallbladder demonstrates multiple layering gallstones. Abdomen: Liver: Scattered high T2 signal probable hepatic cyst. Pancreas: Pancreatic neck cystic lesion high T2 signal with septations measuring 2.3 x 1.6 cm this is stable from 07/28/2023. Additional scattered cystic lesions are also present throughout the parenchym a including a 7 mm pancreatic head and tail lesions. Spleen: Unremarkable. Adrenal glands: Unremarkable. Kidneys: There is a cyst which is high T2 signal posterior to the right kidney. No evidence for obstr uctive uropathy. Stomach and Bowel: Unremarkable as visualized. Peritoneum: No evidence of pneumoperitoneum or free fluid. Vasculature: Unremarkable. No aortic aneurysm. Musculoskeletal: The osseous structures appear intact. Lymph Nodes: There is a probable lymph node at the level of the left renal sinus measuring similarly at 3.7 x 2.2 cm given differences in slice selection and more superior medially measuring up to 14 mm Abdominal wall: Unremarkable. IMPRESSION: 1. Similar lymph nodes in the retroperitoneum near the left renal sinus. 2. No evidence to suggest ductal stricture, choledocholithiasis, or biliary ductal dilatation. 3. Cholelithiasis. 4. 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 Findings favor [place] intraductal papillary mucinous neoplasm. Stable from 08/05/2023. Consider short-term follow-up i n 24 months to ensure stability.
== END | disposition home or self-care (01) ==
LOC: RADMRIMAIN 08:48
PROVIDERS: ATTEND Internal Medicine Hematology & Oncology
DX: C91.10 Chronic lymphocytic leukemia of B-cell type not having achieved remission (principal); K80.20 Calculus of gallbladder without cholecystitis without obstruction; I35.0 Nonrheumatic aortic (valve) stenosis; N28.9 Disorder of kidney and ureter, unspecified; Z95.2 Presence of prosthetic heart valve
CPT/HCPCS: 74181

== ENCOUNTER → 2024-03-30 | Outpatient (CLI) | payer MEDICARE, BC ==
[2024-03-30 15:08] LABS: BUN/Creat Ratio 13.36 Ratio (12.00-20.00); Blood Urea Nitrogen 14.7 mg/dL (9.0-27.0); Calcium 9.6 mg/dL (8.7-10.3); Carbon Dioxide 25.5 mmol/L (21.6-31.8); Chloride 102 mmol/L (96-109); Glucose 102 mg/dL (70-110); Potassium 3.4 mmol/L (3.5-5.5); Sodium 141 mmol/L (135-145)
== END | disposition home or self-care (01) ==
LOC: LABWHC1 10:09
PROVIDERS: ATTEND Internal Medicine Hematology & Oncology
DX: I48.0 Paroxysmal atrial fibrillation (principal); I25.5 Ischemic cardiomyopathy; I25.10 Atherosclerotic heart disease of native coronary artery without angina pectoris; I25.2 Old myocardial infarction; Z95.2 Presence of prosthetic heart valve; I35.0 Nonrheumatic aortic (valve) stenosis
CPT/HCPCS: 36415; 80048

== ENCOUNTER → 2024-06-29 | Outpatient (CLI) | payer MEDICARE, BC ==
--- NOTE | 2024-07-24 07:39 | CT ---
Patient: Alexy Lee Ordering Physician: Unknown, Unknown ID: [id number] Phone, Pager: Phon e: N/A Pager: N/A : [phone] Age/Gender: 83Y, M Primary Location: N/A Procedure: CT CHEST WO CONT RAST Study Date: 06/29/2024 11:20:00 AM EXAMINATION TYPE: CT chest wo con DATE OF EXAM: 06/29/2024 COMPARISON: No comparison available on downtime PACS. HISTORY: CLL CT DLP: 701 mGycm, Automated exposure control for dose reduction was used. CONTRAST: Performed injected with 0 mL of Isovue 300. TECHNIQUE: Axial images were obtained at 5 mm thick sections. Reconstructed images are reviewed on [employer] computer in the coronal plane. FINDINGS: Portion of the thyroid visualized is normal. No suspicious lung nodules or focal infiltrates are present. There is a 1.6 cm enlarged lymph node at the level of the pavel in the pretracheal space. Shotty ly mphadenopathy is present to the mediastinum. The ascending aorta diameter at the level of the main pu lmonary artery is 3.6 cm. The main pulmonary artery diameter at the bifurcation is 3.[address] sections are obtained through the upper abdomen. Cholelithiasis is present. There is a cys t on the posterior upper pole right kidney. IMPRESSION: 1. Enlarged 1.6 cm pretracheal lymph node near the level of the pavel. Additional shotty lymphadenop athy is present. 2. Cholelithiasis.
== END | disposition home or self-care (01) ==
LOC: RADCTMAIN 10:58
PROVIDERS: ATTEND Internal Medicine Hematology & Oncology
DX: C91.90 Lymphoid leukemia, unspecified not having achieved remission (principal); R19.01 Right upper quadrant abdominal swelling, mass and lump; J98.4 Other disorders of lung; D80.1 Nonfamilial hypogammaglobulinemia; K80.20 Calculus of gallbladder without cholecystitis without obstruction; R59.0 Localized enlarged lymph nodes
CPT/HCPCS: 71250